=== PATIENT | male | born 1970 | race Caucasian/White ===

== ENCOUNTER 2016-11-05 20:34 | Emergency (ER) | payer BC, MEDICAID, OTHER ==
--- NOTE | 2016-11-06 00:53 | EDM.PDOC ---
ED HPI Behavioral Health - General Chief Complaint: Behavioral/Psych Stated Complaint: EVAL Time Seen by Provider: 11/05/16 21:50 Source: Reports: Patient Exam Limitations: Reports: No limitations - History of Present Illness INITIAL COMMENTS - FREE TEXT/NARRATIVE: Pt was brought in because of some questionable suicidal remarks. He was in treatment for 40 some days. He got out Monday and has been drinking ever since. Tonight after drinking a fair amount he started talking about not wanting to live. Onset of Symptoms: Reports: gradual Duration of Symptoms: Reports: Week(s):, Other (Pt has been drinking heavy for about 5 years, ) Severity: moderate Associated Symptoms: Reports: anxiety, depression, suicidal thought - Related Data Allergies Allergy/AdvReac Type Severity Reaction Status Date / Time Penicillins Allergy Hives Verified 01/29/16 19:21 Home Medications: Home Meds Metoprolol Tartrate [Lopressor] 25 mg PO BID 03/29/14 [History] Citalopram [Citalopram HBr] 30 mg PO DAILY 01/29/16 [History] Omeprazole [Omeprazole] 20 mg PO DAILY 11/05/16 [History] Prazosin HCl [Prazosin] 2 mg PO BEDTIME 11/05/16 [History] traZODone HCl [Trazodone HCl] 100 mg PO BEDTIME 11/05/16 [History] denies pain Pain Score (Numeric/FACES): 0 Past Medical History HEENT History: Reports: Impaired vision Cardiovascular History: Reports: Arrhythmia, Hypertension, Other (see below) Other Cardiovascular History: SVT Respiratory History: Reports: Bronchitis, recurrent Gastrointestinal History: Reports: Diverticulosis Genitourinary History: Reports: Renal calculus Musculoskeletal History: Reports: Fracture, Other (see below) Other Musculoskeletal History: dislocated shoulder Neurological History: Reports: Concussion Psychiatric History: Reports: Anxiety, Depression, Panic attack, PTSD, Other ( see below) Other Psychiatric History: Major depressive disorder Endocrine/Metabolic History: Reports: Diabetes, type II, Other (see below) Other Endocrine/Metabolic History: 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 Immunologic History: Reports: Other (see below) Other Immunologic History: anaplasmosis, lyme disease Dermatologic History: Reports: Eczema - Infectious Disease History Infectious Disease History: Reports: Chicken pox - Past Surgical History HEENT Surgical History: Reports: Tonsillectomy GI Surgical History: Reports: Bariatric procedure, Cholecystectomy Musculoskeletal Surgical History: Reports: Arthroscopic knee Social & Family History - Tobacco Use Smoking Status *Q: Never Smoker Years of Tobacco use: 15 Packs/Tins Daily: 2 Used Tobacco, but Quit: Yes Month Tobacco Last Used: x 10 years Second Hand Smoke Exposure: Yes - Caffeine Use Caffeine Use: Reports: Coffee - Alcohol Use Days Per Week of Alcohol Use: 1 Number of Drinks Per Day: 4 Total Drinks Per Week: 4 - Recreational Drug Use Recreational Drug Use: Yes Drug Use in Last 12 Months: Yes Recreational Drug Type: Reports: Marijuana/Hashish Recreational Drug Use Frequency: Not Used In Over 1 Year - Living Situation & Occupation Living situation: Reports: with significant other Occupation: 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 ) Psychiatric: Reports: Depression, Suicidal ideation ED EXAM, BEHAVIORAL HEALTH - Physical Exam Exam: See Below Text/Narrative:: pt arrived because of some suicidal comments tonight. He was in denial when he arrived. He admitted to drinking since he was out of treatment. Exam Limited By: Other (depression) General Appearance: alert, no apparent distress Ears: normal TMs Nose: normal inspection Throat/Mouth: Normal inspection Head: atraumatic Neck: normal inspection Respiratory/Chest: no respiratory distress Cardiovascular: regular rate, rhythm GI/Abdominal: soft, non tender (Male) Exam: Deferred Rectal (Males) Exam: Deferred Back Exam: normal inspection Extremities: normal inspection Neurological: alert, normal cognition, oriented x 3 Psychiatric: alert, normal cognition, suicidal thoughts COURSE, BEHAVIORAL HEALTH COMP - Course Vital Signs: Last Vital Signs Temp 35.9 C 11/06/16 02:32 Pulse 98 11/06/16 02:32 Resp 16 11/06/16 04:30 BP 110/63 11/06/16 02:32 Pulse Ox 93 L 11/06/16 02:32 Orders, Labs, Meds: Laboratory Tests 11/05/16 11/05/16 11/05/16 Range/Units 22:01 22:01 22:01 WBC 8.6 (4.5-11.0) K/uL RBC 5.08 (4.30-5.90) M/uL Hgb 15.5 H (12.0-15.0) g/dL Hct 45.1 (40.0-54.0) % MCV 89 (80-98) fL MCH 31 (27-31) pg MCHC 34 (32-36) % Plt Count 259 (150-400) K/uL Neut % (Auto) 50 (36-66) % Lymph % (Auto) 35 (24-44) % [place] % (Auto) 5 (2-6) % Eos % (Auto) 8 H (2-4) % Baso % (Auto) 2 H (0-1) % Sodium 149 H (140-148) mmol/L Potassium 3.9 (3.6-5.2) mmol/L Chloride 112 H (100-108) mmol/L Carbon Dioxide 26 (21-32) mmol/L Anion Gap 14.9 H (5.0-14.0) mmol/L BUN 13 (7-18) mg/dL Creatinine 1.0 (0.8-1.3) mg/dL Est Cr Clr Drug Dosing 85.07 mL/min Estimated GFR (MDRD) > 60 (>60) Glucose 104 (74-106) mg/dL Calcium 8.0 L (8.5-10.1) mg/dL Total Bilirubin 0.2 D (0.2-1.0) mg/dL AST 32 (15-37) U/L ALT 53 (12-78) U/L Alkaline Phosphatase 97 (46-116) U/L Total Protein 6.5 (6.4-8.2) g/dL Albumin 3.9 (3.4-5.0) g/dL Globulin 2.6 (2.3-3.5) g/dL Albumin/Globulin Ratio 1.5 (1.2-2.2) Urine Color Urine Appearance Urine pH (4.5-8.0) Ur Specific [place] (1.008-1.030) Urine Protein (NEGATIVE) mg/dL Urine Glucose (UA) (NEGATIVE) mg/dL Urine Ketones (NEGATIVE) mg/dL Urine Occult Blood (NEGATIVE) Urine Nitrite (NEGAITVE) Urine Bilirubin (NEGATIVE) Urine Urobilinogen (NORMAL) mg/dL Ur Leukocyte Esterase (NEGATIVE) Urine RBC (0-5) Urine WBC (0-5) Ur Epithelial Cells Amorphous Sediment Urine Bacteria Urine Mucus Urine Opiates Screen (NEGATIVE) Ur Oxycodone Screen (NEGATIVE) Urine Methadone Screen (NEGATIVE) Ur Propoxyphene Screen (NEGATIVE) Ur Barbiturates Screen (NEGATIVE) Ur Tricyclics Screen (NEGATIVE) Ur Phencyclidine Scrn (NEGATIVE) Ur Amphetamine Screen (NEGATIVE) U Methamphetamines Scrn (NEGATIVE) Urine MDMA Screen (NEGATIVE) U Benzodiazepines Scrn (NEGATIVE) U Cocaine Metab Screen (NEGATIVE) U Marijuana (THC) Screen (NEGATIVE) Ethyl Alcohol 220 mg/dL 11/05/16 11/05/16 Range/Units 22:50 22:50 WBC (4.5-11.0) K/uL RBC (4.30-5.90) M/uL Hgb (12.0-15.0) g/dL Hct (40.0-54.0) % MCV (80-98) fL MCH (27-31) pg MCHC (32-36) % Plt Count (150-400) K/uL Neut % (Auto) (36-66) % Lymph % (Auto) (24-44) % [place] % (Auto) (2-6) % Eos % (Auto) (2-4) % Baso % (Auto) (0-1) % Sodium (140-148) mmol/L Potassium (3.6-5.2) mmol/L Chloride (100-108) mmol/L Carbon Dioxide (21-32) mmol/L Anion Gap (5.0-14.0) mmol/L BUN (7-18) mg/dL Creatinine (0.8-1.3) mg/dL Est Cr Clr Drug Dosing mL/min Estimated GFR (MDRD) (>60) Glucose (74-106) mg/dL Calcium (8.5-10.1) mg/dL Total Bilirubin (0.2-1.0) mg/dL AST (15-37) U/L ALT (12-78) U/L Alkaline Phosphatase (46-116) U/L Total Protein (6.4-8.2) g/dL Albumin (3.4-5.0) g/dL Globulin (2.3-3.5) g/dL Albumin/Globulin Ratio (1.2-2.2) Urine Color Yellow Urine Appearance Clear Urine pH 5.0 (4.5-8.0) Ur Specific [place] 1.015 (1.008-1.030) Urine Protein Negative (NEGATIVE) mg/dL Urine Glucose (UA) Normal (NEGATIVE) mg/dL Urine Ketones Negative (NEGATIVE) mg/dL Urine Occult Blood Negative (NEGATIVE) Urine Nitrite Negative (NEGAITVE) Urine Bilirubin Negative (NEGATIVE) Urine Urobilinogen Normal (NORMAL) mg/dL Ur Leukocyte Esterase Negative (NEGATIVE) Urine RBC 0-5 (0-5) Urine WBC 0-5 (0-5) Ur Epithelial Cells Rare Amorphous Sediment Not seen Urine Bacteria Few Urine Mucus Not seen Urine Opiates Screen Negative (NEGATIVE) Ur Oxycodone Screen Negative (NEGATIVE) Urine Methadone Screen Negative (NEGATIVE) Ur Propoxyphene Screen Negative (NEGATIVE) Ur Barbiturates Screen Negative (NEGATIVE) Ur Tricyclics Screen Negative (NEGATIVE) Ur Phencyclidine Scrn Negative (NEGATIVE) Ur Amphetamine Screen Negative (NEGATIVE) U Methamphetamines Scrn Negative (NEGATIVE) Urine MDMA Screen Negative (NEGATIVE) U Benzodiazepines Scrn Negative (NEGATIVE) U Cocaine Metab Screen Negative (NEGATIVE) U Marijuana (THC) Screen Negative (NEGATIVE) Ethyl Alcohol mg/dL Medical Clearance: 11/06/16 00:55 lab work looked normal. He does have a neg drug screen and his etoh was.22 11/06/16 05:03 [facility] acepted the pt Departure - Departure Time of Disposition: 05:04 Disposition: DC/Tfer to Psych Hosp/Unit 65 Condition: fair Clinical Impression: Depression, Suicidal ideation Forms: ED Department Discharge Care Plan Goals: transfer to [facility]
[2016-11-06 04:32] VITALS: BP 110/63
== END 2016-11-06 06:07 ==
LOC: JP.ED 20:34
DX: R45.851 Suicidal ideations (principal); I10 Essential (primary) hypertension; Z90.49 Acquired absence of other specified parts of digestive tract; Z98.84 Bariatric surgery status; Z98.890 Other specified postprocedural states; Z79.899 Other long term (current) drug therapy; Z88.0 Allergy status to penicillin
CPT/HCPCS: 36415; 80053; 80305; 81001; 85025; 99285; G0480

== ENCOUNTER 2017-01-21 12:48 | Emergency (ER) | payer BC, MEDICAID, OTHER, SELFPAY ==
[2017-01-21 12:59] VITALS: BP 116/65
--- NOTE | 2017-01-21 14:16 | EDM.PDOC ---
ED HPI GENERAL MEDICAL PROBLEM - General Chief Complaint: Behavioral/Psych Stated Complaint: EVAL Time Seen by Provider: 01/21/17 13:10 Source of Information: Reports: Patient, Family, Police History Limitations: Reports: Intoxication - History of Present Illness INITIAL COMMENTS - FREE TEXT/NARRATIVE: 46-year-old male with depression, PTSD and chronic alcohol abuse presents acutely intoxicated and threatening self-harm. Now that he is here he completely denies any suicidal or self-harm intent. He has no specific plans, just social media threats. He is planning on entering into an extended treatment plan for chemical dependency and psychiatric issues next week. Severity: Moderate Associated Symptoms: Reports: No Other Symptoms Left Shoulder Pain Score (Numeric/FACES): 3 - Related Data Allergies Allergy/AdvReac Type Severity Reaction Status Date / Time erythromycin base Allergy Nausea Verified 01/21/17 12:59 Penicillins Allergy Hives Verified 01/21/17 12:59 Home Meds: Home Meds Metoprolol Tartrate [Lopressor] 25 mg PO BID 03/29/14 [History] Citalopram [Citalopram HBr] 30 mg PO DAILY 01/29/16 [History] Omeprazole [Omeprazole] 20 mg PO DAILY 11/05/16 [History] Prazosin HCl [Prazosin] 3 mg PO BEDTIME 11/05/16 [History] traZODone HCl [Trazodone HCl] 100 mg PO BEDTIME 11/05/16 [History] Diazepam [Valium] 2.5 mg PO BID PRN 01/21/17 [History] Gabapentin [Neurontin] 600 mg PO TID 01/21/17 [History] Sertraline [Zoloft] 1 tab PO DAILY 01/21/17 [History] Past Medical History HEENT History: Reports: Impaired Vision Cardiovascular History: Reports: Arrhythmia, Hypertension, Other (See Below) Other Cardiovascular History: svt Respiratory History: Reports: Bronchitis, Recurrent Gastrointestinal History: Reports: Diverticulosis Genitourinary History: Reports: Renal Calculus Musculoskeletal History: Reports: Fracture Other Musculoskeletal History: dislocated shoulder Neurological History: Reports: Concussion Psychiatric History: Reports: Anxiety, Depression, Panic Attack, Psych Hospitalization(s), PTSD Other Psychiatric History: Major depressive disorder Endocrine/Metabolic History: Reports: Diabetes, Type II, Other (See Below) Other Endocrine/Metabolic History: type II diabetes history Immunologic History: Reports: Other (See Below) Other Immunologic History: anaplasmosis, lyme disease Dermatologic History: Reports: Eczema - Infectious Disease History Infectious Disease History: Reports: Chicken Pox - Past Surgical History GI Surgical History: Reports: Bariatric Procedure, Cholecystectomy Musculoskeletal Surgical History: Reports: Arthroscopic Knee Social & Family History - Tobacco Use Smoking Status *Q: Former Smoker Years of Tobacco use: 15 Packs/Tins Daily: 2 Used Tobacco, but Quit: Yes Month Tobacco Last Used: 0 Second Hand Smoke Exposure: Yes - Caffeine Use Caffeine Use: Reports: Coffee - Alcohol Use Days Per Week of Alcohol Use: 1 Number of Drinks Per Day: 4 Total Drinks Per Week: 4 - Recreational Drug Use Recreational Drug Use: No Drug Use in Last 12 Months: Yes Recreational Drug Type: Reports: Marijuana/Hashish Recreational Drug Use Frequency: Not Used In Over 1 Year - Living Situation & Occupation Living situation: Reports: with Significant Other Occupation: Employed ED ROS GENERAL - Review of Systems Review Of Systems: See Below Constitutional: Denies: Fever Respiratory: Denies: Shortness of Breath Cardiovascular: Denies: Chest Pain GI/Abdominal: Denies: Nausea, Vomiting Neurological: Denies: Headache Psychiatric: Reports: Depression ED EXAM, BEHAVIORAL HEALTH - Physical Exam Exam: See Below Exam Limited By: Intoxication General Appearance: Alert, No Apparent Distress Eye Exam: Bilateral Eye: EOMI Respiratory/Chest: No Respiratory Distress Cardiovascular: Regular Rate, Rhythm Neurological: Alert Psychiatric: Depressed Mood. No: Tearful Skin Exam: Warm, Dry COURSE, BEHAVIORAL HEALTH COMP - Course Vital Signs: Last Vital Signs Temp 99.1 F 01/21/17 12:56 Pulse 70 01/21/17 12:56 Resp 16 01/21/17 12:56 BP 116/65 01/21/17 12:56 Pulse Ox 91 L 01/21/17 12:56 Orders, Labs, Meds: Laboratory Tests 01/21/17 01/21/17 01/21/17 Range/Units 13:32 13:35 13:35 WBC 9.9 (4.5-11.0) K/uL RBC 5.32 (4.30-5.90) M/uL Hgb 16.0 H (12.0-15.0) g/dL Hct 46.0 (40.0-54.0) % MCV 87 (80-98) fL MCH 30 (27-31) pg MCHC 35 (32-36) % Plt Count 330 (150-400) K/uL Neut % (Auto) 67 H (36-66) % Lymph % (Auto) 24 (24-44) % [place] % (Auto) 4 (2-6) % Eos % (Auto) 4 (2-4) % Baso % (Auto) 1 (0-1) % Sodium 144 (140-148) mmol/L Potassium 4.0 (3.6-5.2) mmol/L Chloride 108 (100-108) mmol/L Carbon Dioxide 22 (21-32) mmol/L Anion Gap 14.0 (5.0-14.0) mmol/L BUN 10 (7-18) mg/dL Creatinine 0.9 (0.8-1.3) mg/dL Est Cr Clr Drug Dosing 94.52 mL/min Estimated GFR (MDRD) > 60 (>60) Glucose 94 (74-106) mg/dL Calcium 8.2 L (8.5-10.1) mg/dL Urine Opiates Screen Negative (NEGATIVE) Ur Oxycodone Screen Negative (NEGATIVE) Urine Methadone Screen Negative (NEGATIVE) Ur Propoxyphene Screen Negative (NEGATIVE) Ur Barbiturates Screen Negative (NEGATIVE) Ur Tricyclics Screen Negative (NEGATIVE) Ur Phencyclidine Scrn Negative (NEGATIVE) Ur Amphetamine Screen Negative (NEGATIVE) U Methamphetamines Scrn Negative (NEGATIVE) Urine MDMA Screen Negative (NEGATIVE) U Benzodiazepines Scrn Positive H (NEGATIVE) U Cocaine Metab Screen Negative (NEGATIVE) U Marijuana (THC) Screen Negative (NEGATIVE) Ethyl Alcohol mg/dL 01/21/17 Range/Units 13:35 WBC (4.5-11.0) K/uL RBC (4.30-5.90) M/uL Hgb (12.0-15.0) g/dL Hct (40.0-54.0) % MCV (80-98) fL MCH (27-31) pg MCHC (32-36) % Plt Count (150-400) K/uL Neut % (Auto) (36-66) % Lymph % (Auto) (24-44) % [place] % (Auto) (2-6) % Eos % (Auto) (2-4) % Baso % (Auto) (0-1) % Sodium (140-148) mmol/L Potassium (3.6-5.2) mmol/L Chloride (100-108) mmol/L Carbon Dioxide (21-32) mmol/L Anion Gap (5.0-14.0) mmol/L BUN (7-18) mg/dL Creatinine (0.8-1.3) mg/dL Est Cr Clr Drug Dosing mL/min Estimated GFR (MDRD) (>60) Glucose (74-106) mg/dL Calcium (8.5-10.1) mg/dL Urine Opiates Screen (NEGATIVE) Ur Oxycodone Screen (NEGATIVE) Urine Methadone Screen (NEGATIVE) Ur Propoxyphene Screen (NEGATIVE) Ur Barbiturates Screen (NEGATIVE) Ur Tricyclics Screen (NEGATIVE) Ur Phencyclidine Scrn (NEGATIVE) Ur Amphetamine Screen (NEGATIVE) U Methamphetamines Scrn (NEGATIVE) Urine MDMA Screen (NEGATIVE) U Benzodiazepines Scrn (NEGATIVE) U Cocaine Metab Screen (NEGATIVE) U Marijuana (THC) Screen (NEGATIVE) Ethyl Alcohol 234 mg/dL Re-Assessment/Re-Exam: EtOH is 0.234, urine drug screen is otherwise negative other than benzodiazepines for which he is prescribed. Instead of a 72 hour hold the patient agreed to go to [facility] for detox, then will await placement for his long-term treatment. He can return anytime if worsening or concerns. Departure - Departure Time of Disposition: 14:31 Disposition: DC/Tfer to Other 70 Condition: fair Clinical Impression: Alcohol abuse Depression Qualifiers: Depression Type: other depression Qualified Code(s): F32.89 - Other specified depressive episodes - Discharge Information Instructions: Alcohol Intoxication, [id number] Referrals: Baljeet Lucio MD [Primary Care Provider] - Forms: ED Department Discharge Care Plan Goals: Go directly to [facility] for detox over the next several days then to long- term treatment as planned.
== END 2017-01-21 14:32 | disposition other institution (70) ==
LOC: JP.ED 12:48
DX: F10.10 Alcohol abuse, uncomplicated (principal); F32.89 Other specified depressive episodes; I10 Essential (primary) hypertension; F41.0 Panic disorder [episodic paroxysmal anxiety]; E11.9 Type 2 diabetes mellitus without complications; Z79.899 Other long term (current) drug therapy; Z98.84 Bariatric surgery status; Z90.49 Acquired absence of other specified parts of digestive tract; Z98.890 Other specified postprocedural states; Z87.891 Personal history of nicotine dependence; Z88.0 Allergy status to penicillin; Z88.1 Allergy status to other antibiotic agents
CPT/HCPCS: 36415; 80048; 80305; 85025; 99285; G0480; 99283

== ENCOUNTER 2020-01-07 19:08 | Observation (INO) | payer BC, OTHER ==
[2020-01-07] MEDS ORDERED: Sodium Chloride 0.9% 10 ML Syringe FLUSH PRN (19:47)
[2020-01-07] MEDS ORDERED: MVI, Adult with Vitamin K 10 ML, Thiamine 200 MG, Folic Acid 1 MG, Magnesium Sulfate 2 ... IV ONE ×5 (19:48)
[2020-01-07] MEDS ORDERED: LORazepam 2 MG/ML SDV IVPUSH ONE (19:48)
--- NOTE | 2020-01-07 19:54 | EDM.PDOCBH ---
ED HPI GENERAL MEDICAL PROBLEM - General Chief Complaint: Drug or Alcohol Abuse Stated Complaint: EVAL Time Seen by Provider: 01/07/20 19:42 Source of Information: Reports: Patient, Family, RN Notes Reviewed History Limitations: Reports: Intoxication - History of Present Illness INITIAL COMMENTS - FREE TEXT/NARRATIVE: 49-year-old gentleman presents emergency department a complaint of nausea and vomiting, he has been excessively using alcohol last drink was 2 hours ago he is on a variety medications including Effexor SNRI which he admits not taking any of his medications for the last 6 days. He is diaphoretic complains of muscle pain. abd Pain Score (Numeric/FACES): 5 - Related Data Allergies Allergy/AdvReac Type Severity Reaction Status Date / Time erythromycin base Allergy Nausea Verified 01/07/20 19:31 Penicillins Allergy Hives Verified 01/07/20 19:31 Home Meds: Home Meds Metoprolol Tartrate [Lopressor] 25 mg PO BID 03/29/14 [History] Omeprazole 20 mg PO DAILY 11/05/16 [History] Prazosin HCl [Prazosin] 5 mg PO BEDTIME 11/05/16 [History] traZODone HCl [Trazodone HCl] 50 mg PO BEDTIME 11/05/16 [History] Dextroamphetamine/Amphetamine [Adderall 20 mg Tablet] 1 tab PO DAILY 01/07/20 [ History] Tamsulosin HCl [Flomax] 0.4 mg PO DAILY 01/07/20 [History] Venlafaxine [Effexor] 0 mg PO DAILY 01/07/20 [History] Past Medical History HEENT History: Reports: Impaired Vision Cardiovascular History: Reports: Arrhythmia, CAD, Hypertension, MS, Other (See Below) Other Cardiovascular History: svt Respiratory History: Reports: Bronchitis, Recurrent Gastrointestinal History: Reports: Diverticulosis Genitourinary History: Reports: Prostate Disorder, Renal Calculus Musculoskeletal History: Reports: Fracture Other Musculoskeletal History: dislocated shoulder Neurological History: Reports: Concussion Psychiatric History: Reports: Addiction, Anxiety, Depression, Panic Attack, Psych Hospitalization(s), PTSD, Suicide Attempt Other Psychiatric History: Major depressive disorder Endocrine/Metabolic History: Reports: Diabetes, Type II, Other (See Below) Other Endocrine/Metabolic History: type II diabetes history Immunologic History: Reports: Other (See Below) Other Immunologic History: anaplasmosis, lyme disease Dermatologic History: Reports: Eczema - Infectious Disease History Infectious Disease History: Reports: Chicken Pox - Past Surgical History GI Surgical History: Reports: Bariatric Procedure, Cholecystectomy, Colonoscopy Musculoskeletal Surgical History: Reports: Arthroscopic Knee Social & Family History - Tobacco Use Smoking Status *Q: Current Every Day Smoker Years of Tobacco use: 30 Packs/Tins Daily: 0.2 - Caffeine Use Caffeine Use: Reports: Coffee - Alcohol Use Days Per Week of Alcohol Use: 7 Number of Drinks Per Day: 20 Total Drinks Per Week: 140 - Recreational Drug Use Recreational Drug Use: No - Living Situation & Occupation Living situation: Reports: with Significant Other Occupation: Employed ED ROS GENERAL - Review of Systems Review Of Systems: See Below Constitutional: Reports: Diaphoresis HEENT: Reports: No Symptoms Respiratory: Reports: No Symptoms Cardiovascular: Reports: No Symptoms GI/Abdominal: Reports: Nausea, Vomiting Musculoskeletal: Reports: Muscle Pain Neurological: Reports: No Symptoms Psychiatric: Reports: Agitation, Anxiety ED EXAM, BEHAVIORAL HEALTH - Physical Exam Exam: See Below Exam Limited By: Intoxication General Appearance: Alert, Moderate Distress Respiratory/Chest: No Respiratory Distress, Lungs Clear, Normal Breath Sounds, No Accessory Muscle Use, Chest Non-Tender Cardiovascular: No Murmur, Tachycardia GI/Abdominal: Soft, Non-Tender Back Exam: Normal Inspection, Full Range of Motion COURSE, BEHAVIORAL HEALTH COMP - Course Vital Signs: Last Vital Signs Temp 96.7 F L 01/07/20 20:27 Pulse 108 H 01/07/20 20:50 Resp 23 H 01/07/20 20:27 BP 128/84 01/07/20 20:50 Pulse Ox 98 01/07/20 20:50 Orders, Labs, Meds: Active Orders 24 hr Category Date Time Status Cardiac Monitoring [RC] .As Directed Care 01/07/20 19:53 Active EKG Documentation Completion [RC] ASDIRECTED Care 01/07/20 19:53 Active Peripheral IV Care [RC] . DIRECTED Care 01/07/20 19:48 Active UA W/MICROSCOPIC [URIN] Urgent Lab 01/07/20 21:23 Ordered MVI, Adult with Vitamin K [Infuvite Adult] 10 ml Med 01/07/20 19:48 Active Thiamine [Vitamin B-1] 200 mg Folic Acid 1 mg Magnesium Sulfate [Magnesium Sulfate 50%] 2 gm Dextrose 5%-Lactated Ringers 1,000 ml IV ONETIME Sodium Chloride 0.9% [Saline Flush] Med 01/07/20 19:47 Active 10 ml FLUSH ASDIRECTED PRN Peripheral IV Insertion Adult [OM.PC] Urgent Oth 01/07/20 19:47 Ordered EKG 12 Lead [EK] Stat Ther 01/07/20 19:53 Ordered Medication Orders Multivitamins/Minerals 10 ml/Thiamine HCl 200 mg/ Folic Acid 1 mg/ Magnesium Sulfate 2 gm/ Dextrose/Lactated Ringer' s 1,016.2 mls @ 500 mls/hr IV ONETIME ONE Stop: 01/07/20 21:49 Last Admin: 01/07/20 20:28 Dose: 500 mls/hr Sodium Chloride (Saline Flush) 10 ml FLUSH ASDIRECTED PRN PRN Reason: Keep Vein Open Last Admin: 01/07/20 20:02 Dose: 10 ml Laboratory Tests 01/07/20 01/07/20 01/07/20 Range/Units 20:00 20:00 20:00 WBC 14.1 H (4.5-11.0) K/uL RBC 6.69 H (4.30-5.90) M/uL Hgb 19.1 H* D (12.0-15.0) g/dL Hct 54.9 H (40.0-54.0) % MCV 82 (80-98) fL MCH 29 (27-31) pg MCHC 35 (32-36) % Plt Count 406 H (150-400) K/uL Neut % (Auto) 65 (36-66) % Lymph % (Auto) 26 (24-44) % [place] % (Auto) 7 H (2-6) % Eos % (Auto) 1 L (2-4) % Baso % (Auto) 1 (0-1) % Sodium 134 L (140-148) mmol/L Potassium 4.2 (3.6-5.2) mmol/L Chloride 91 L (100-108) mmol/L Carbon Dioxide 19 L (21-32) mmol/L Anion Gap 28.2 H (5.0-14.0) mmol/L BUN 9 (7-18) mg/dL Creatinine 1.2 (0.8-1.3) mg/dL Est Cr Clr Drug Dosing 68.67 mL/min Estimated GFR (MDRD) > 60 (>60) Glucose 138 H (74-106) mg/dL Calcium 8.7 (8.5-10.1) mg/dL Total Bilirubin 2.3 H D (0.2-1.0) mg/dL AST 200 H D (15-37) U/L ALT 182 H (12-78) U/L Alkaline Phosphatase 177 H D (46-116) U/L Creatine Kinase (39-308) U/L Troponin I (0.000-0.056) ng/mL Total Protein 8.0 (6.4-8.2) g/dL Albumin 4.6 (3.4-5.0) g/dL Globulin 3.4 (2.3-3.5) g/dL Albumin/Globulin Ratio 1.4 (1.2-2.2) Salicylates 2.7 (2.0-20.0) mg/dL Urine Opiates Screen (NEGATIVE) Ur Oxycodone Screen (NEGATIVE) Urine Methadone Screen (NEGATIVE) Ur Propoxyphene Screen (NEGATIVE) Acetaminophen 0.0 L (10.0-30.0) ug/mL Ur Barbiturates Screen (NEGATIVE) Ur Tricyclics Screen (NEGATIVE) Ur Phencyclidine Scrn (NEGATIVE) Ur Amphetamine Screen (NEGATIVE) U Methamphetamines Scrn (NEGATIVE) Urine MDMA Screen (NEGATIVE) U Benzodiazepines Scrn (NEGATIVE) U Cocaine Metab Screen (NEGATIVE) U Marijuana (THC) Screen (NEGATIVE) Ethyl Alcohol mg/dL 01/07/20 01/07/20 01/07/20 Range/Units 20:00 20:00 21:02 WBC (4.5-11.0) K/uL RBC (4.30-5.90) M/uL Hgb (12.0-15.0) g/dL Hct (40.0-54.0) % MCV (80-98) fL MCH (27-31) pg MCHC (32-36) % Plt Count (150-400) K/uL Neut % (Auto) (36-66) % Lymph % (Auto) (24-44) % [place] % (Auto) (2-6) % Eos % (Auto) (2-4) % Baso % (Auto) (0-1) % Sodium (140-148) mmol/L Potassium (3.6-5.2) mmol/L Chloride (100-108) mmol/L Carbon Dioxide (21-32) mmol/L Anion Gap (5.0-14.0) mmol/L BUN (7-18) mg/dL Creatinine (0.8-1.3) mg/dL Est Cr Clr Drug Dosing mL/min Estimated GFR (MDRD) (>60) Glucose (74-106) mg/dL Calcium (8.5-10.1) mg/dL Total Bilirubin (0.2-1.0) mg/dL AST (15-37) U/L ALT (12-78) U/L Alkaline Phosphatase (46-116) U/L Creatine Kinase 358 H (39-308) U/L Troponin I < 0.017 (0.000-0.056) ng/mL Total Protein (6.4-8.2) g/dL Albumin (3.4-5.0) g/dL Globulin (2.3-3.5) g/dL Albumin/Globulin Ratio (1.2-2.2) Salicylates (2.0-20.0) mg/dL Urine Opiates Screen Negative (NEGATIVE) Ur Oxycodone Screen Negative (NEGATIVE) Urine Methadone Screen Negative (NEGATIVE) Ur Propoxyphene Screen Negative (NEGATIVE) Acetaminophen (10.0-30.0) ug/mL Ur Barbiturates Screen Negative (NEGATIVE) Ur Tricyclics Screen Negative (NEGATIVE) Ur Phencyclidine Scrn Negative (NEGATIVE) Ur Amphetamine Screen Negative (NEGATIVE) U Methamphetamines Scrn Negative (NEGATIVE) Urine MDMA Screen Negative (NEGATIVE) U Benzodiazepines Scrn Negative (NEGATIVE) U Cocaine Metab Screen Negative (NEGATIVE) U Marijuana (THC) Screen Negative (NEGATIVE) Ethyl Alcohol 340 mg/dL Medications Generic Name Dose Route Start Last Admin Trade Name Freq PRN Reason Stop Dose Admin Multivitamins/Minerals 10 ml/ 1,016.2 mls @ 500 mls/hr 01/07/20 19:48 20:28 Thiamine HCl 200 mg/ Folic IV 01/07/20 21:49 500 mls/hr Acid 1 mg/ Magnesium Sulfate 2 ONETIME ONE Administration gm/ Dextrose/Lactated Ringer' s Sodium Chloride 10 ml 01/07/20 19:47 01/07/20 20:02 Saline Flush FLUSH 10 ml ASDIRECTED PRN Administration Keep Vein Open Discontinued Medications Generic Name Dose Route Start Last Admin Trade Name Freq PRN Reason Stop Dose Admin Lorazepam 1 mg 01/07/20 19:48 01/07/20 20:01 Ativan IVPUSH 01/07/20 19:49 1 mg ONETIME ONE Administration Departure - Departure Time of Disposition: 21:29 Disposition: Admitted As Inpatient 68 Condition: Fair Clinical Impression: Dehydration Alcohol intoxication Qualifiers: Complication of substance-induced condition: with unspecified complication Qualified Code(s): F10.929 - Alcohol use, unspecified with intoxication, unspecified - Discharge Information Referrals: PCP,None [Primary Care Provider] - Forms: ED Department Discharge Sepsis Event Note - Focused Exam Vital Signs: Vital Signs Temp Pulse Resp BP Pulse Ox 01/07/20 20:50 108 H 128/84 98 01/07/20 20:27 96.7 F L 125 H 23 H 123/93 H 98 01/07/20 20:14 125 H 23 H 123/93 H 98 01/07/20 19:25 96.7 F L 140 H 20 129/111 H 97 Date Exam was Performed: 01/07/20 Time Exam was Performed: 21:27 - My Orders Last 24 Hours: My Active Orders 01/07/20 19:47 Sodium Chloride 0.9% [Saline Flush] 10 ml FLUSH ASDIRECTED PRN Peripheral IV Insertion Adult [OM.PC] Urgent 01/07/20 19:48 Peripheral IV Care [RC] . DIRECTED MVI, Adult with Vitamin K [Infuvite Adult] 10 ml Thiamine [Vitamin B-1] 200 mg Folic Acid 1 mg Magnesium Sulfate [Magnesium Sulfate 50%] 2 gm Dextrose 5%- Lactated Ringers 1,000 ml IV ONETIME 01/07/20 19:53 Cardiac Monitoring [RC] .As Directed EKG Documentation Completion [RC] ASDIRECTED EKG 12 Lead [EK] Stat 01/07/20 21:23 UA W/MICROSCOPIC [URIN] Urgent - Assessment/Plan Last 24 Hours: My Active Orders 01/07/20 19:47 Sodium Chloride 0.9% [Saline Flush] 10 ml FLUSH ASDIRECTED PRN Peripheral IV Insertion Adult [OM.PC] Urgent 01/07/20 19:48 Peripheral IV Care [RC] . DIRECTED MVI, Adult with Vitamin K [Infuvite Adult] 10 ml Thiamine [Vitamin B-1] 200 mg Folic Acid 1 mg Magnesium Sulfate [Magnesium Sulfate 50%] 2 gm Dextrose 5%- Lactated Ringers 1,000 ml IV ONETIME 01/07/20 19:53 Cardiac Monitoring [RC] .As Directed EKG Documentation Completion [RC] ASDIRECTED EKG 12 Lead [EK] Stat 01/07/20 21:23 UA W/MICROSCOPIC [URIN] Urgent Plan: Assessment Acuity = acute Site and laterality = alcohol intoxication concern for serotonin withdrawal syndrome intravascular volume depletion Etiology = EtOH Manifestations = nausea and vomiting Location of injury = Home Lab values = WBC elevated 14.1 consistent leukocytosis, hemoglobin elevated 19.1 consistent with polycythemia sodium low at 134 consistent hyponatremia bilirubin elevated 2.3 consistent hyperbilirubinemia AST elevated 200 ALT elevated 182 consistent elevated liver enzymes CK elevated 358 troponin was negative alcohol is 340 urine drug screen was negative urinalysis pending Plan Call discussed case with hospitalist on-call at [phone] currently agreed to evaluate the patient in the emergency department for admission This note was dictated using [employer] voice recognition software please call with any questions on syntax or grammar.
[2020-01-07] MEDS ORDERED: Ondansetron 4 MG/2 ML SDV IVPUSH ONE (21:40)
--- NOTE | 2020-01-07 22:31 | PCM.HP.2 ---
H&P History of Present Illness - General Date of Service: 01/07/20 Admit Problem/Dx: Admission Diagnosis/Problem Admission Diagnosis/Problem Dehydration Source of Information: Patient, Provider, RN History Limitations: Reports: Intoxication - History of Present Illness Initial Comments - Free Text/Narative: 49-year-old gentleman presents emergency department a complaint of nausea and vomiting, he has been excessively using alcohol last drink was 2 hours ago he is on a variety medications including Effexor SNRI which he admits not taking any of his medications for the last 6 days. He is diaphoretic complains of muscle pain. abd Assessment Acuity = acute Site and laterality = alcohol intoxication concern for serotonin withdrawal syndrome intravascular volume depletion Etiology = EtOH Manifestations = nausea and vomiting Location of injury = Home Lab values = WBC elevated 14.1 consistent leukocytosis, hemoglobin elevated 19.1 consistent with polycythemia sodium low at 134 consistent hyponatremia bilirubin elevated 2.3 consistent hyperbilirubinemia AST elevated 200 ALT elevated 182 consistent elevated liver enzymes CK elevated 358 troponin was negative alcohol is 340 urine drug screen was negative urinalysis pending Plan Call discussed case with hospitalist on-call at [phone] currently agreed to evaluate the patient in the emergency department for admission Onset of Symptoms: Reports: Gradual Duration of Symptoms: Reports: Day(s):, Getting Worse Location: Reports: Generalized (nausea and vomiting) Quality: Reports: Same as Previous Episode Severity: Severe Improves with: Reports: None Worsens with: Reports: None Associated Symptoms: Reports: Malaise, Nausea/Vomiting, Weakness abd Pain Score (Numeric/FACES): 5 - Related Data Allergies/Adverse Reactions: Allergies Allergy/AdvReac Type Severity Reaction Status Date / Time erythromycin base Allergy Nausea Verified 01/07/20 19:31 Penicillins Allergy Hives Verified 01/07/20 19:31 Home Medications: Home Meds Metoprolol Tartrate [Lopressor] 25 mg PO DAILY 03/29/14 [History] Omeprazole 20 mg PO DAILY 11/05/16 [History] Prazosin HCl [Prazosin] 5 mg PO BEDTIME 11/05/16 [History] traZODone HCl [Trazodone HCl] 50 mg PO BEDTIME 11/05/16 [History] Aspirin [Low Dose Aspirin EC] 81 mg PO DAILY 01/07/20 [History] Dextroamphetamine/Amphetamine [Adderall 20 mg Tablet] 1 tab PO DAILY 01/07/20 [ History] Disulfiram 250 mg PO BID 01/07/20 [History] FLUoxetine HCl [Prozac] 40 mg PO DAILY 01/07/20 [History] Naltrexone 50 mg PO DAILY 01/07/20 [History] QUEtiapine [SEROquel] 25 mg PO BEDTIME 01/07/20 [History] Tamsulosin HCl [Flomax] 0.4 mg PO DAILY 01/07/20 [History] Past Medical History HEENT History: Reports: Impaired Vision Cardiovascular History: Reports: Arrhythmia, CAD, Hypertension, ME, Other (See Below) Other Cardiovascular History: svt Respiratory History: Reports: Bronchitis, Recurrent Gastrointestinal History: Reports: Diverticulosis Genitourinary History: Reports: Prostate Disorder, Renal Calculus Musculoskeletal History: Reports: Fracture Other Musculoskeletal History: dislocated shoulder Neurological History: Reports: Concussion Psychiatric History: Reports: Addiction, Anxiety, Depression, Panic Attack, Psych Hospitalization(s), PTSD, Suicide Attempt Other Psychiatric History: Major depressive disorder Endocrine/Metabolic History: Reports: Diabetes, Type II, Other (See Below) Other Endocrine/Metabolic History: type II diabetes history Immunologic History: Reports: Other (See Below) Other Immunologic History: anaplasmosis, lyme disease Dermatologic History: Reports: Eczema - Infectious Disease History Infectious Disease History: Reports: Chicken Pox - Past Surgical History GI Surgical History: Reports: Bariatric Procedure, Cholecystectomy, Colonoscopy Musculoskeletal Surgical History: Reports: Arthroscopic Knee Social & Family History - Tobacco Use Smoking Status *Q: Current Every Day Smoker Years of Tobacco use: 30 Packs/Tins Daily: 0.2 - Caffeine Use Caffeine Use: Reports: Coffee - Alcohol Use Days Per Week of Alcohol Use: 7 Number of Drinks Per Day: 20 Total Drinks Per Week: 140 - Recreational Drug Use Recreational Drug Use: No - Living Situation & Occupation Living situation: Reports: with Significant Other (reports is getting divorce from in [place], living with his son.) Occupation: Employed H&P Review of Systems - Review of Systems: Review Of Systems: See Below General: Reports: Weakness, Fatigue, Decreased Appetite HEENT: Reports: Glasses Pulmonary: Reports: No Symptoms Cardiovascular: Reports: No Symptoms Gastrointestinal: Reports: Abdominal Pain, Nausea, Vomiting Genitourinary: Reports: No Symptoms Musculoskeletal: Reports: No Symptoms Skin: Reports: No Symptoms Psychiatric: Reports: Anxiety, Other (hx of complex PTSD, reports drinking 175 liter of vodka daily for 6 days) Neurological: Reports: No Symptoms Hematologic/Lymphatic: Reports: No Symptoms Immunologic: Reports: No Symptoms Exam - Exam Exam: See Below - Vital Signs Vital Signs: Last Vital Signs Temp 35.9 C L 01/07/20 20:27 Pulse 108 H 01/07/20 20:50 Resp 23 H 01/07/20 20:27 BP 128/84 01/07/20 20:50 Pulse Ox 98 01/07/20 20:50 Weight: 93.6 kg - Exam General: Alert, Oriented, Cooperative, Other (very polite) HEENT: PERRLA Neck: Supple, Trachea Midline Lungs: Clear to Auscultation, Normal Respiratory Effort Cardiovascular: Regular Rhythm, Tachycardia GI/Abdominal Exam: Normal Bowel Sounds, Soft, Non-Tender, No Distention (Male) Exam: Deferred Rectal (Males) Exam: Deferred Back Exam: Normal Inspection, Full Range of Motion Extremities: Normal Inspection, Normal Range of Motion, Non-Tender, No Pedal Edema, Normal Capillary Refill Peripheral Pulses: 2+: Radial (L), Radial (R) Skin: Warm, Dry, Intact Neurological: Reflexes Equal Bilateral, Strength Equal Bilateral Neuro Extensive - Mental Status: Alert, Oriented x3, Normal Mood/Affect, Normal Cognition Neuro Extensive - Motor, Sensory, Reflexes: Normal Gait, Normal Reflexes, Tremor (no tremor noted on exam) Psychiatric: Alert, Anxious - Patient Data Lab Results Last 24 hrs: Laboratory Results - last 24 hr 01/07/20 01/07/20 01/07/20 Range/Units 20:00 20:00 20:00 WBC 14.1 H (4.5-11.0) K/uL RBC 6.69 H (4.30-5.90) M/uL Hgb 19.1 H* D (12.0-15.0) g/dL Hct 54.9 H (40.0-54.0) % MCV 82 (80-98) fL MCH 29 (27-31) pg MCHC 35 (32-36) % Plt Count 406 H (150-400) K/uL Neut % (Auto) 65 (36-66) % Lymph % (Auto) 26 (24-44) % Leslie % (Auto) 7 H (2-6) % Eos % (Auto) 1 L (2-4) % Baso % (Auto) 1 (0-1) % Sodium 134 L (140-148) mmol/L Potassium 4.2 (3.6-5.2) mmol/L Chloride 91 L (100-108) mmol/L Carbon Dioxide 19 L (21-32) mmol/L Anion Gap 28.2 H (5.0-14.0) mmol/L BUN 9 (7-18) mg/dL Creatinine 1.2 (0.8-1.3) mg/dL Est Cr Clr Drug Dosing 68.67 mL/min Estimated GFR (MDRD) > 60 (>60) Glucose 138 H (74-106) mg/dL Calcium 8.7 (8.5-10.1) mg/dL Total Bilirubin 2.3 H D (0.2-1.0) mg/dL AST 200 H D (15-37) U/L ALT 182 H (12-78) U/L Alkaline Phosphatase 177 H D (46-116) U/L Creatine Kinase (39-308) U/L Troponin I (0.000-0.056) ng/mL Total Protein 8.0 (6.4-8.2) g/dL Albumin 4.6 (3.4-5.0) g/dL Globulin 3.4 (2.3-3.5) g/dL Albumin/Globulin Ratio 1.4 (1.2-2.2) Urine Color (YELLOW) Urine Appearance (CLEAR) Urine pH (5.0-8.0) Ur Specific [place] (1.008-1.030) Urine Protein (NEGATIVE) mg/dL Urine Glucose (UA) (NEGATIVE) mg/dL Urine Ketones (NEGATIVE) mg/dL Urine Occult Blood (NEGATIVE) Urine Nitrite (NEGATIVE) Urine Bilirubin (NEGATIVE) Urine Urobilinogen (0.2-1.0) EU/dL Ur Leukocyte Esterase (NEGATIVE) Urine RBC (0-5) Urine WBC (0-5) Ur Epithelial Cells Amorphous Sediment Urine Bacteria Urine Mucus Salicylates 2.7 (2.0-20.0) mg/dL Urine Opiates Screen (NEGATIVE) Ur Oxycodone Screen (NEGATIVE) Urine Methadone Screen (NEGATIVE) Ur Propoxyphene Screen (NEGATIVE) Acetaminophen 0.0 L (10.0-30.0) ug/mL Ur Barbiturates Screen (NEGATIVE) Ur Tricyclics Screen (NEGATIVE) Ur Phencyclidine Scrn (NEGATIVE) Ur Amphetamine Screen (NEGATIVE) U Methamphetamines Scrn (NEGATIVE) Urine MDMA Screen (NEGATIVE) U Benzodiazepines Scrn (NEGATIVE) U Cocaine Metab Screen (NEGATIVE) U Marijuana (THC) Screen (NEGATIVE) Ethyl Alcohol mg/dL 01/07/20 01/07/20 01/07/20 Range/Units 20:00 20:00 21:02 WBC (4.5-11.0) K/uL RBC (4.30-5.90) M/uL Hgb (12.0-15.0) g/dL Hct (40.0-54.0) % MCV (80-98) fL MCH (27-31) pg MCHC (32-36) % Plt Count (150-400) K/uL Neut % (Auto) (36-66) % Lymph % (Auto) (24-44) % Leslie % (Auto) (2-6) % Eos % (Auto) (2-4) % Baso % (Auto) (0-1) % Sodium (140-148) mmol/L Potassium (3.6-5.2) mmol/L Chloride (100-108) mmol/L Carbon Dioxide (21-32) mmol/L Anion Gap (5.0-14.0) mmol/L BUN (7-18) mg/dL Creatinine (0.8-1.3) mg/dL Est Cr Clr Drug Dosing mL/min Estimated GFR (MDRD) (>60) Glucose (74-106) mg/dL Calcium (8.5-10.1) mg/dL Total Bilirubin (0.2-1.0) mg/dL AST (15-37) U/L ALT (12-78) U/L Alkaline Phosphatase (46-116) U/L Creatine Kinase 358 H (39-308) U/L Troponin I < 0.017 (0.000-0.056) ng/mL Total Protein (6.4-8.2) g/dL Albumin (3.4-5.0) g/dL Globulin (2.3-3.5) g/dL Albumin/Globulin Ratio (1.2-2.2) Urine Color (YELLOW) Urine Appearance (CLEAR) Urine pH (5.0-8.0) Ur Specific [place] (1.008-1.030) Urine Protein (NEGATIVE) mg/dL Urine Glucose (UA) (NEGATIVE) mg/dL Urine Ketones (NEGATIVE) mg/dL Urine Occult Blood (NEGATIVE) Urine Nitrite (NEGATIVE) Urine Bilirubin (NEGATIVE) Urine Urobilinogen (0.2-1.0) EU/dL Ur Leukocyte Esterase (NEGATIVE) Urine RBC (0-5) Urine WBC (0-5) Ur Epithelial Cells Amorphous Sediment Urine Bacteria Urine Mucus Salicylates (2.0-20.0) mg/dL Urine Opiates Screen Negative (NEGATIVE) Ur Oxycodone Screen Negative (NEGATIVE) Urine Methadone Screen Negative (NEGATIVE) Ur Propoxyphene Screen Negative (NEGATIVE) Acetaminophen (10.0-30.0) ug/mL Ur Barbiturates Screen Negative (NEGATIVE) Ur Tricyclics Screen Negative (NEGATIVE) Ur Phencyclidine Scrn Negative (NEGATIVE) Ur Amphetamine Screen Negative (NEGATIVE) U Methamphetamines Scrn Negative (NEGATIVE) Urine MDMA Screen Negative (NEGATIVE) U Benzodiazepines Scrn Negative (NEGATIVE) U Cocaine Metab Screen Negative (NEGATIVE) U Marijuana (THC) Screen Negative (NEGATIVE) Ethyl Alcohol 340 mg/dL 01/07/20 Range/Units 21:23 WBC (4.5-11.0) K/uL RBC (4.30-5.90) M/uL Hgb (12.0-15.0) g/dL Hct (40.0-54.0) % MCV (80-98) fL MCH (27-31) pg MCHC (32-36) % Plt Count (150-400) K/uL Neut % (Auto) (36-66) % Lymph % (Auto) (24-44) % Leslie % (Auto) (2-6) % Eos % (Auto) (2-4) % Baso % (Auto) (0-1) % Sodium (140-148) mmol/L Potassium (3.6-5.2) mmol/L Chloride (100-108) mmol/L Carbon Dioxide (21-32) mmol/L Anion Gap (5.0-14.0) mmol/L BUN (7-18) mg/dL Creatinine (0.8-1.3) mg/dL Est Cr Clr Drug Dosing mL/min Estimated GFR (MDRD) (>60) Glucose (74-106) mg/dL Calcium (8.5-10.1) mg/dL Total Bilirubin (0.2-1.0) mg/dL AST (15-37) U/L ALT (12-78) U/L Alkaline Phosphatase (46-116) U/L Creatine Kinase (39-308) U/L Troponin I (0.000-0.056) ng/mL Total Protein (6.4-8.2) g/dL Albumin (3.4-5.0) g/dL Globulin (2.3-3.5) g/dL Albumin/Globulin Ratio (1.2-2.2) Urine Color Yellow (YELLOW) Urine Appearance Clear (CLEAR) Urine pH 5.5 (5.0-8.0) Ur Specific [place] 1.010 (1.008-1.030) Urine Protein Negative (NEGATIVE) mg/dL Urine Glucose (UA) Negative (NEGATIVE) mg/dL Urine Ketones 40 H (NEGATIVE) mg/dL Urine Occult Blood Trace-intact H (NEGATIVE) Urine Nitrite Negative (NEGATIVE) Urine Bilirubin Negative (NEGATIVE) Urine Urobilinogen 0.2 (0.2-1.0) EU/dL Ur Leukocyte Esterase Negative (NEGATIVE) Urine RBC 0-5 (0-5) Urine WBC 0-5 (0-5) Ur Epithelial Cells Not seen Amorphous Sediment Few Urine Bacteria Not seen Urine Mucus Not seen Salicylates (2.0-20.0) mg/dL Urine Opiates Screen (NEGATIVE) Ur Oxycodone Screen (NEGATIVE) Urine Methadone Screen (NEGATIVE) Ur Propoxyphene Screen (NEGATIVE) Acetaminophen (10.0-30.0) ug/mL Ur Barbiturates Screen (NEGATIVE) Ur Tricyclics Screen (NEGATIVE) Ur Phencyclidine Scrn (NEGATIVE) Ur Amphetamine Screen (NEGATIVE) U Methamphetamines Scrn (NEGATIVE) Urine MDMA Screen (NEGATIVE) U Benzodiazepines Scrn (NEGATIVE) U Cocaine Metab Screen (NEGATIVE) U Marijuana (THC) Screen (NEGATIVE) Ethyl Alcohol mg/dL Result Diagrams: 01/08/20 04:57 01/08/20 04:57 Sepsis Event Note - Evaluation Sepsis Screening Result: No Definite Risk - Focused Exam Vital Signs: Vital Signs Temp Pulse Resp BP Pulse Ox 01/07/20 20:50 108 H 128/84 98 01/07/20 20:27 35.9 C L 125 H 23 H 123/93 H 98 01/07/20 20:14 125 H 23 H 123/93 H 98 01/07/20 19:25 35.9 C L 140 H 20 129/111 H 97 Date Exam was Performed: 01/08/20 Time Exam was Performed: 05:25 - Problem List (1) Dehydration SNOMED Code(s): 66823763 ICD Code: E86.0 - DEHYDRATION Status: Acute Priority: High Current Visit: Yes (2) Alcohol intoxication SNOMED Code(s): 10193395 ICD Code: F10.929 - ALCOHOL USE, UNSPECIFIED WITH INTOXICATION, UNSPECIFIED Status: Acute Priority: High Current Visit: Yes Qualifiers: Complication of substance-induced condition: with unspecified complication Qualified Code(s): F10.929 - Alcohol use, unspecified with intoxication, unspecified (3) Depression SNOMED Code(s): 87201081 ICD Code: F32.9 - MAJOR DEPRESSIVE DISORDER, SINGLE EPISODE, UNSPECIFIED Status: Acute Priority: Low Current Visit: Yes Qualifiers: Depression Type: other depression Qualified Code(s): F32.89 - Other specified depressive episodes (4) History of gastric bypass SNOMED Code(s): 686141566 ICD Code: Z98.84 - BARIATRIC SURGERY STATUS Status: Acute Priority: Low Current Visit: Yes Problem List Initiated/Reviewed/Updated: Yes Orders Last 24hrs: Active Orders 24 hr Category Date Time Status Patient Status Manage Transfer [TRANSFER] Routine ADT 01/07/20 21:35 Active Cardiac Monitoring [RC] .As Directed Care 01/07/20 19:53 Active EKG Documentation Completion [RC] ASDIRECTED Care 01/07/20 19:53 Active Peripheral IV Care [RC] . DIRECTED Care 01/07/20 19:48 Active Sodium Chloride 0.9% [Saline Flush] Med 01/07/20 19:47 Active 10 ml FLUSH ASDIRECTED PRN Peripheral IV Insertion Adult [OM.PC] Urgent Oth 01/07/20 19:47 Ordered Resuscitation Status Routine Resus Stat 01/07/20 21:37 Ordered EKG 12 Lead [EK] Stat Ther 01/07/20 19:53 Ordered Medication Orders Sodium Chloride (Saline Flush) 10 ml FLUSH ASDIRECTED PRN PRN Reason: Keep Vein Open Last Admin: 01/07/20 20:02 Dose: 10 ml Assessment/Plan Comment:: ASSESSMENT / PLAN: 49-year-old gentleman presents emergency department a complaint of nausea and vomiting, he has been excessively using alcohol , reports 175 liter of Vodka daily, last drink was 2 hours ago. He is on a variety medications including Effexor SNRI which he admits not taking any of his medications for the last 6 days. He is diaphoretic complains of muscle pain. He is staying with his Son in [place] due to divorce proceeding from who is also a Nurse. There home is in [place], [place]. Assessment Acuity = acute Site and laterality = alcohol intoxication concern for serotonin withdrawal syndrome intravascular volume depletion Etiology = ETOH Manifestations = nausea and vomiting ER work up Lab values = WBC elevated 14.1 consistent leukocytosis, hemoglobin elevated 19.1 consistent with polycythemia sodium low at 134 consistent hyponatremia bilirubin elevated 2.3 consistent hyperbilirubinemia AST elevated 200 ALT elevated 182 consistent elevated liver enzymes CK elevated 358 troponin was negative alcohol is 340 urine drug screen was negative urinalysis pending Plan Call discussed case with hospitalist on-call at 2114 currently agreed to evaluate the patient in the emergency department for admission Dehydration with alcohol intoxication -Admit Observation ICU Med-surg overflow for further monitoring -IV Fluids for rehydration Normal Saline 250ml/hr x one liter, then rate of 150ml/hr -anti-nausea medication -CIWAA protocol and medication per protocol -And a.m. labs: CBC, BMP, ETOH level Depression -order medications History of Gastric Bypass -history of 180 pound wt loss Maintenance issues -Orders home meds: reviewed -Nutrition: regular diet -Granger catheter: not indicated at this time -DVT: ambulate -PPI: Protonix 40 mg daily CODE STATUS: FULL Admission status: Admit to Observation -I expect this patient to stay less than 24 hours, not to exceed 96 hours for evaluation and management of this problem admission status. Disposition: Detox or home with Son. Primary care provider: Dr. Lucio Hospitalist: Dr. Hadley - Mortality Measure Prognosis:: Good
[2020-01-07] MEDS ORDERED: traZODone 50 MG Tab PO SCH (23:00)
[2020-01-07] MEDS ORDERED: QUEtiapine 25 MG Tab PO SCH (23:00)
[2020-01-07] MEDS ORDERED: Docusate Sodium 100 MG Cap PO PRN (23:06)
[2020-01-07] MEDS ORDERED: Ondansetron 4 MG/2 ML SDV IV PRN (23:06)
[2020-01-07] MEDS ORDERED: Morphine 2 MG/ML SYRINGE IVPUSH PRN (23:06)
[2020-01-07] MEDS ORDERED: Ondansetron 4 MG Tab.DIS PO PRN (23:06)
[2020-01-07] MEDS ORDERED: Albuterol 0.083% 2.5 MG/3 ML Neb Soln NEB PRN (23:06)
[2020-01-07] MEDS ORDERED: Pantoprazole 40 MG Vial IV ONE (23:06)
[2020-01-07] MEDS ORDERED: Acetaminophen 325 MG Tab PO PRN (23:06)
[2020-01-07] MEDS ORDERED: oxyCODONE 5 MG Tab PO PRN (23:06)
[2020-01-07] MEDS ORDERED: Sodium Chloride 0.9% 1,000 ML IV ONE (23:06)
[2020-01-08] MEDS: LORazepam 2 MG/ML SDV IV SCH ×4 (00:24→10:36)
[2020-01-08] MEDS: Sodium Chloride 0.9% 1,000 ML IV SCH ×2 (02:45→09:22)
[2020-01-08] MEDS: Metoprolol Tartrate 25 MG Tab PO SCH ×2 (02:46→08:11)
[2020-01-08] MEDS ORDERED: Lactated Ringers 1,000 ML IV SCH (07:30)
[2020-01-08] MEDS ORDERED: Potassium Chloride 20 MEQ Tab.ER PO ONE (09:00)
[2020-01-08] MEDS ORDERED: Gabapentin 400 MG Cap PO SCH (09:00)
[2020-01-08] MEDS ORDERED: FLUoxetine 20 MG Cap PO SCH (09:00)
--- NOTE | 2020-01-08 09:58 | PCM.DCSUM1 ---
Discharge Summary - Hospital Course Brief History: Mr. Luna 49-year-old gentleman who was admitted through the emergency department observation status for management of severe dehydration secondary to heavy alcohol use. - Discharge Data Discharge Date: 01/08/20 Discharge Disposition: DC/Tfer to Other 70 Condition: Fair - Referral to Home Health Primary Care Physician: Baljeet Lucio MD - Discharge Diagnosis/Problem(s) (1) Alcohol intoxication SNOMED Code(s): 89192564 ICD Code: F10.929 - ALCOHOL USE, UNSPECIFIED WITH INTOXICATION, UNSPECIFIED Status: Acute Priority: High Current Visit: Yes Qualifiers: Complication of substance-induced condition: with unspecified complication Qualified Code(s): F10.929 - Alcohol use, unspecified with intoxication, unspecified (2) Dehydration SNOMED Code(s): 04779057 ICD Code: E86.0 - DEHYDRATION Status: Acute Priority: High Current Visit: Yes (3) Depression SNOMED Code(s): 17127482 ICD Code: F32.9 - MAJOR DEPRESSIVE DISORDER, SINGLE EPISODE, UNSPECIFIED Status: Acute Priority: Low Current Visit: Yes Qualifiers: Depression Type: other depression Qualified Code(s): F32.89 - Other specified depressive episodes - Patient Summary/Data Hospital Course: Mr. Luna is a 49-year-old gentleman who was admitted to observation status through the emergency department for management of weakness with nausea vomiting secondary to severe dehydration from alcohol use. On evaluation in the emergency department he reported symptoms of nausea vomiting was given antiemetic therapy. Laboratory studies were consistent with severe dehydration. He was admitted to the hospital on observation status and given IV fluids for hydration through the night. By the following morning abnormalities had resolved. Alcohol level was significantly elevated at the time of admission, by the morning of discharge he was noted to be developing mild symptoms of alcohol withdrawal. He is agreeable for discharge to detox center and follow-up with alcohol treatment. - Patient Instructions Diet: Usual Diet as Tolerated Activity: As Tolerated Other/Special Instructions: Be discharged to alcohol detox facility - Discharge Plan *PRESCRIPTION DRUG MONITORING PROGRAM REVIEWED*: Not Applicable *COPY OF PRESCRIPTION DRUG MONITORING REPORT IN PATIENT LIZA: Not Applicable Home Medications: Home Meds Metoprolol Tartrate [Lopressor] 25 mg PO DAILY 03/29/14 [History] Omeprazole 20 mg PO DAILY 11/05/16 [History] Prazosin HCl [Prazosin] 5 mg PO BEDTIME 11/05/16 [History] traZODone HCl [Trazodone HCl] 50 mg PO BEDTIME 11/05/16 [History] Aspirin [Low Dose Aspirin EC] 81 mg PO DAILY 01/07/20 [History] Dextroamphetamine/Amphetamine [Adderall 20 mg Tablet] 1 tab PO DAILY 01/07/20 [ History] Disulfiram 250 mg PO BID 01/07/20 [History] FLUoxetine HCl [Prozac] 40 mg PO DAILY 01/07/20 [History] Naltrexone 50 mg PO DAILY 01/07/20 [History] QUEtiapine [SEROquel] 25 mg PO BEDTIME 01/07/20 [History] Tamsulosin HCl [Flomax] 0.4 mg PO DAILY 01/07/20 [History] - Discharge Summary/Plan Comment DC Time >30 min.: No - Patient Data Vitals - Most Recent: Last Vital Signs Temp 98.8 F 01/07/20 23:06 Pulse 92 01/08/20 08:11 Resp 22 H 01/08/20 03:06 BP 109/63 01/08/20 08:11 Pulse Ox 90 L 01/08/20 03:06 Weight - Most Recent: 206 lb I&O - Last 24 hours: Intake & Output 01/07/20 01/08/20 01/08/20 22:59 06:59 14:59 Intake Total 2407 Output Total 425 Balance 1982 Lab Results - Last 24 hrs: Laboratory Results - last 24 hr 01/07/20 01/07/20 01/07/20 Range/Units 20:00 20:00 20:00 WBC 14.1 H (4.5-11.0) K/uL RBC 6.69 H (4.30-5.90) M/uL Hgb 19.1 H* D (12.0-15.0) g/dL Hct 54.9 H (40.0-54.0) % MCV 82 (80-98) fL MCH 29 (27-31) pg MCHC 35 (32-36) % Plt Count 406 H (150-400) K/uL Neut % (Auto) 65 (36-66) % Lymph % (Auto) 26 (24-44) % Daniels % (Auto) 7 H (2-6) % Eos % (Auto) 1 L (2-4) % Baso % (Auto) 1 (0-1) % Sodium 134 L (140-148) mmol/L Potassium 4.2 (3.6-5.2) mmol/L Chloride 91 L (100-108) mmol/L Carbon Dioxide 19 L (21-32) mmol/L Anion Gap 28.2 H (5.0-14.0) mmol/L BUN 9 (7-18) mg/dL Creatinine 1.2 (0.8-1.3) mg/dL Est Cr Clr Drug Dosing 68.67 mL/min Estimated GFR (MDRD) > 60 (>60) Glucose 138 H (74-106) mg/dL Calcium 8.7 (8.5-10.1) mg/dL Total Bilirubin 2.3 H D (0.2-1.0) mg/dL AST 200 H D (15-37) U/L ALT 182 H (12-78) U/L Alkaline Phosphatase 177 H D (46-116) U/L Creatine Kinase (39-308) U/L Troponin I (0.000-0.056) ng/mL Total Protein 8.0 (6.4-8.2) g/dL Albumin 4.6 (3.4-5.0) g/dL Globulin 3.4 (2.3-3.5) g/dL Albumin/Globulin Ratio 1.4 (1.2-2.2) Urine Color (YELLOW) Urine Appearance (CLEAR) Urine pH (5.0-8.0) Ur Specific [place] (1.008-1.030) Urine Protein (NEGATIVE) mg/dL Urine Glucose (UA) (NEGATIVE) mg/dL Urine Ketones (NEGATIVE) mg/dL Urine Occult Blood (NEGATIVE) Urine Nitrite (NEGATIVE) Urine Bilirubin (NEGATIVE) Urine Urobilinogen (0.2-1.0) EU/dL Ur Leukocyte Esterase (NEGATIVE) Urine RBC (0-5) Urine WBC (0-5) Ur Epithelial Cells Amorphous Sediment Urine Bacteria Urine Mucus Salicylates 2.7 (2.0-20.0) mg/dL Urine Opiates Screen (NEGATIVE) Ur Oxycodone Screen (NEGATIVE) Urine Methadone Screen (NEGATIVE) Ur Propoxyphene Screen (NEGATIVE) Acetaminophen 0.0 L (10.0-30.0) ug/mL Ur Barbiturates Screen (NEGATIVE) Ur Tricyclics Screen (NEGATIVE) Ur Phencyclidine Scrn (NEGATIVE) Ur Amphetamine Screen (NEGATIVE) U Methamphetamines Scrn (NEGATIVE) Urine MDMA Screen (NEGATIVE) U Benzodiazepines Scrn (NEGATIVE) U Cocaine Metab Screen (NEGATIVE) U Marijuana (THC) Screen (NEGATIVE) Ethyl Alcohol mg/dL 01/07/20 01/07/20 01/07/20 Range/Units 20:00 20:00 21:02 WBC (4.5-11.0) K/uL RBC (4.30-5.90) M/uL Hgb (12.0-15.0) g/dL Hct (40.0-54.0) % MCV (80-98) fL MCH (27-31) pg MCHC (32-36) % Plt Count (150-400) K/uL Neut % (Auto) (36-66) % Lymph % (Auto) (24-44) % Daniels % (Auto) (2-6) % Eos % (Auto) (2-4) % Baso % (Auto) (0-1) % Sodium (140-148) mmol/L Potassium (3.6-5.2) mmol/L Chloride (100-108) mmol/L Carbon Dioxide (21-32) mmol/L Anion Gap (5.0-14.0) mmol/L BUN (7-18) mg/dL Creatinine (0.8-1.3) mg/dL Est Cr Clr Drug Dosing mL/min Estimated GFR (MDRD) (>60) Glucose (74-106) mg/dL Calcium (8.5-10.1) mg/dL Total Bilirubin (0.2-1.0) mg/dL AST (15-37) U/L ALT (12-78) U/L Alkaline Phosphatase (46-116) U/L Creatine Kinase 358 H (39-308) U/L Troponin I < 0.017 (0.000-0.056) ng/mL Total Protein (6.4-8.2) g/dL Albumin (3.4-5.0) g/dL Globulin (2.3-3.5) g/dL Albumin/Globulin Ratio (1.2-2.2) Urine Color (YELLOW) Urine Appearance (CLEAR) Urine pH (5.0-8.0) Ur Specific [place] (1.008-1.030) Urine Protein (NEGATIVE) mg/dL Urine Glucose (UA) (NEGATIVE) mg/dL Urine Ketones (NEGATIVE) mg/dL Urine Occult Blood (NEGATIVE) Urine Nitrite (NEGATIVE) Urine Bilirubin (NEGATIVE) Urine Urobilinogen (0.2-1.0) EU/dL Ur Leukocyte Esterase (NEGATIVE) Urine RBC (0-5) Urine WBC (0-5) Ur Epithelial Cells Amorphous Sediment Urine Bacteria Urine Mucus Salicylates (2.0-20.0) mg/dL Urine Opiates Screen Negative (NEGATIVE) Ur Oxycodone Screen Negative (NEGATIVE) Urine Methadone Screen Negative (NEGATIVE) Ur Propoxyphene Screen Negative (NEGATIVE) Acetaminophen (10.0-30.0) ug/mL Ur Barbiturates Screen Negative (NEGATIVE) Ur Tricyclics Screen Negative (NEGATIVE) Ur Phencyclidine Scrn Negative (NEGATIVE) Ur Amphetamine Screen Negative (NEGATIVE) U Methamphetamines Scrn Negative (NEGATIVE) Urine MDMA Screen Negative (NEGATIVE) U Benzodiazepines Scrn Negative (NEGATIVE) U Cocaine Metab Screen Negative (NEGATIVE) U Marijuana (THC) Screen Negative (NEGATIVE) Ethyl Alcohol 340 mg/dL 01/07/20 01/08/20 01/08/20 Range/Units 21:23 04:57 04:57 WBC 8.0 (4.5-11.0) K/uL RBC 5.32 (4.30-5.90) M/uL Hgb 15.4 H D (12.0-15.0) g/dL Hct 44.3 (40.0-54.0) % MCV 83 (80-98) fL MCH 29 (27-31) pg MCHC 35 (32-36) % Plt Count 229 (150-400) K/uL Neut % (Auto) 79 H (36-66) % Lymph % (Auto) 13 L (24-44) % Daniels % (Auto) 7 H (2-6) % Eos % (Auto) 1 L (2-4) % Baso % (Auto) 1 (0-1) % Sodium 137 L (140-148) mmol/L Potassium 3.5 L (3.6-5.2) mmol/L Chloride 101 (100-108) mmol/L Carbon Dioxide 26 (21-32) mmol/L Anion Gap 13.5 (5.0-14.0) mmol/L BUN 8 (7-18) mg/dL Creatinine 0.7 L (0.8-1.3) mg/dL Est Cr Clr Drug Dosing 117.73 mL/min Estimated GFR (MDRD) > 60 (>60) Glucose 170 H (74-106) mg/dL Calcium 7.4 L (8.5-10.1) mg/dL Total Bilirubin (0.2-1.0) mg/dL AST (15-37) U/L ALT (12-78) U/L Alkaline Phosphatase (46-116) U/L Creatine Kinase (39-308) U/L Troponin I (0.000-0.056) ng/mL Total Protein (6.4-8.2) g/dL Albumin (3.4-5.0) g/dL Globulin (2.3-3.5) g/dL Albumin/Globulin Ratio (1.2-2.2) Urine Color Yellow (YELLOW) Urine Appearance Clear (CLEAR) Urine pH 5.5 (5.0-8.0) Ur Specific [place] 1.010 (1.008-1.030) Urine Protein Negative (NEGATIVE) mg/dL Urine Glucose (UA) Negative (NEGATIVE) mg/dL Urine Ketones 40 H (NEGATIVE) mg/dL Urine Occult Blood Trace-intact H (NEGATIVE) Urine Nitrite Negative (NEGATIVE) Urine Bilirubin Negative (NEGATIVE) Urine Urobilinogen 0.2 (0.2-1.0) EU/dL Ur Leukocyte Esterase Negative (NEGATIVE) Urine RBC 0-5 (0-5) Urine WBC 0-5 (0-5) Ur Epithelial Cells Not seen Amorphous Sediment Few Urine Bacteria Not seen Urine Mucus Not seen Salicylates (2.0-20.0) mg/dL Urine Opiates Screen (NEGATIVE) Ur Oxycodone Screen (NEGATIVE) Urine Methadone Screen (NEGATIVE) Ur Propoxyphene Screen (NEGATIVE) Acetaminophen (10.0-30.0) ug/mL Ur Barbiturates Screen (NEGATIVE) Ur Tricyclics Screen (NEGATIVE) Ur Phencyclidine Scrn (NEGATIVE) Ur Amphetamine Screen (NEGATIVE) U Methamphetamines Scrn (NEGATIVE) Urine MDMA Screen (NEGATIVE) U Benzodiazepines Scrn (NEGATIVE) U Cocaine Metab Screen (NEGATIVE) U Marijuana (THC) Screen (NEGATIVE) Ethyl Alcohol mg/dL Med Orders - Current: Current Medications Acetaminophen (Tylenol) 650 mg PO Q4H PRN PRN Reason: Pain (Mild 1-3)/fever Albuterol (Proventil Neb Soln) 2.5 mg NEB Q4H PRN PRN Reason: Shortness Of Breath/wheezing Docusate Sodium (Colace) 100 mg PO BID PRN PRN Reason: Constipation Fluoxetine HCl (Prozac) 40 mg PO DAILY [facility] Last Admin: 01/08/20 09:23 Dose: 40 mg Gabapentin (Neurontin) 400 mg PO TID [facility] Last Admin: 01/08/20 09:23 Dose: 400 mg Sodium Chloride (Normal Saline) 1,000 mls @ 150 mls/hr IV ASDIRECTED [facility] Last Admin: 01/08/20 09:22 Dose: 150 mls/hr Sodium Chloride (Normal Saline) 1,000 mls @ 125 mls/hr IV ASDIRECTED [facility] Lorazepam (Ativan) 0 mg IV ASDIRECTED [facility]; Protocol Last Admin: 01/08/20 08:10 Dose: 1 mg Metoprolol Tartrate (Lopressor) 25 mg PO DAILY [facility] Last Admin: 01/08/20 08:11 Dose: 25 mg Morphine Sulfate (Morphine) 2 mg IVPUSH Q2H PRN PRN Reason: Pain (severe 7-10) Ondansetron HCl (Zofran Odt) 4 mg PO Q6H PRN PRN Reason: Nausea able to take PO Ondansetron HCl (Zofran) 4 mg IV Q4H PRN PRN Reason: Nausea/Vomiting Last Admin: 01/07/20 23:35 Dose: 4 mg Oxycodone HCl (Oxycodone) 5 mg PO Q4H PRN PRN Reason: Pain (moderate 4-6) Quetiapine Fumarate (Seroquel) 25 mg PO BEDTIME [facility] Last Admin: 01/08/20 02:46 Dose: Not Given Sodium Chloride (Saline Flush) 10 ml FLUSH ASDIRECTED PRN PRN Reason: Keep Vein Open Last Admin: 01/07/20 20:02 Dose: 10 ml Trazodone HCl (Trazodone) 50 mg PO BEDTIME [facility] Last Admin: 01/08/20 02:46 Dose: Not Given Discontinued Medications Multivitamins/Minerals 10 ml/Thiamine HCl 200 mg/ Folic Acid 1 mg/ Magnesium Sulfate 2 gm/ Dextrose/Lactated Ringer' s 1,016.2 mls @ 500 mls/hr IV ONETIME ONE Stop: 01/07/20 21:49 Last Admin: 01/07/20 20:28 Dose: 500 mls/hr Sodium Chloride (Normal Saline) 1,000 mls @ 250 mls/hr IV ONETIME ONE Stop: 01/08/20 03:05 Last Admin: 01/07/20 23:35 Dose: 250 mls/hr Lorazepam (Ativan) 1 mg IVPUSH ONETIME ONE Stop: 01/07/20 19:49 Last Admin: 01/07/20 20:01 Dose: 1 mg Ondansetron HCl (Zofran) 4 mg IVPUSH ONETIME ONE Stop: 01/07/20 21:41 Last Admin: 01/07/20 21:52 Dose: 4 mg Pantoprazole Sodium (Protonix Iv) 40 mg IV ONETIME ONE Stop: 01/07/20 23:07 Last Admin: 01/07/20 23:34 Dose: 40 mg Potassium Chloride (Klor-Con M20) 40 meq PO ONETIME ONE Stop: 01/08/20 09:01 Last Admin: 01/08/20 09:23 Dose: 40 meq - Exam General: Reports: Alert, Oriented, Cooperative, Mild Distress Lungs: Reports: Clear to Auscultation, Normal Respiratory Effort Cardiovascular: Reports: Regular Rate, Regular Rhythm, No Murmurs GI/Abdominal Exam: Soft, Non-Tender, No Organomegaly, No Distention
[2020-01-08 11:59] VITALS: BP 126/69; PULSE 79
[2020-01-08] MEDS ORDERED: Sodium Chloride 0.9% 1,000 ML IV SCH (18:00)
== END 2020-01-08 11:15 | disposition other institution (70) ==
LOC: JP.ED 19:08 → JP.ICU 21:35
PROVIDERS: ADMIT Hospitalist; ATTEND Hospitalist
DX: F10.129 Alcohol abuse with intoxication, unspecified (principal); E86.0 Dehydration; I10 Essential (primary) hypertension; E11.9 Type 2 diabetes mellitus without complications; F41.9 Anxiety disorder, unspecified; F17.210 Nicotine dependence, cigarettes, uncomplicated; F32.89 Other specified depressive episodes; Z88.0 Allergy status to penicillin; Z88.1 Allergy status to other antibiotic agents; Z79.82 Long term (current) use of aspirin; Z79.899 Other long term (current) drug therapy; Y90.0 Blood alcohol level of less than 20 mg/100 ml; Z98.84 Bariatric surgery status
CPT/HCPCS: 36415; 80048; 80053; 80305; 80307; 81001; 82550; 84484; 85025; 93005; 96361; 96365; 96366; 96375; 96376; 99285; A9270; C9113; G0378; J2060; J2405; J3411; J3475; J7030; J7121; J3490

== ENCOUNTER 2020-01-14 08:57 | Emergency (ER) | payer BC ==
[2020-01-14 09:10] VITALS: BP 136/101; PULSE 123
[2020-01-14] MEDS ORDERED: MVI, Adult with Vitamin K 10 ML, Thiamine 100 MG, Folic Acid 1 MG, Magnesium Sulfate 3 ... IV SCH ×5 (09:30)
[2020-01-14] MEDS ORDERED: Ondansetron 4 MG/2 ML SDV IVPUSH ONE (09:38)
--- NOTE | 2020-01-14 09:38 | EDM.PDOCBH ---
ED HPI GENERAL MEDICAL PROBLEM - General Chief Complaint: Drug or Alcohol Abuse Stated Complaint: EVAL FOR DETOX Time Seen by Provider: 01/14/20 09:15 Source of Information: Reports: Patient, Family History Limitations: Reports: Intoxication - History of Present Illness INITIAL COMMENTS - FREE TEXT/NARRATIVE: 49-year-old male with a chronic alcohol abuse problem has been drinking daily for the past 3 days. He was in detox 5 days ago, left after 2 days and started drinking again. This time they have a long-term inpatient treatment set up form after detox. His only complaint besides persistent nausea and dry heaves, is a painful second toe which is bruised and he does not know what he did do it. Duration: Day(s): (Has been drinking for 3 days) Associated Symptoms: Reports: Nausea/Vomiting, Other (Left second toe pain) - Related Data Allergies Allergy/AdvReac Type Severity Reaction Status Date / Time Penicillins Allergy Hives Verified 01/14/20 09:14 erythromycin base AdvReac Nausea Verified 01/14/20 09:23 Home Meds: Home Meds Metoprolol Tartrate [Lopressor] 25 mg PO DAILY 03/29/14 [History] Omeprazole 20 mg PO DAILY 11/05/16 [History] Prazosin HCl [Prazosin] 5 mg PO BEDTIME 11/05/16 [History] traZODone HCl [Trazodone HCl] 50 mg PO BEDTIME 11/05/16 [History] Aspirin [Low Dose Aspirin EC] 81 mg PO DAILY 01/07/20 [History] Dextroamphetamine/Amphetamine [Adderall 20 mg Tablet] 1 tab PO DAILY 01/07/20 [ History] Disulfiram 250 mg PO BID 01/07/20 [History] FLUoxetine HCl [Prozac] 40 mg PO DAILY 01/07/20 [History] Naltrexone 50 mg PO DAILY 01/07/20 [History] QUEtiapine [SEROquel] 25 mg PO BEDTIME 01/07/20 [History] Tamsulosin HCl [Flomax] 0.4 mg PO DAILY 01/07/20 [History] Past Medical History HEENT History: Reports: Impaired Vision Cardiovascular History: Reports: Arrhythmia, CAD, Hypertension, [place], Other (See Below) Other Cardiovascular History: svt Respiratory History: Reports: Bronchitis, Recurrent Gastrointestinal History: Reports: Diverticulosis Genitourinary History: Reports: Prostate Disorder, Renal Calculus Musculoskeletal History: Reports: Fracture Other Musculoskeletal History: dislocated shoulder Neurological History: Reports: Concussion Psychiatric History: Reports: Addiction, Anxiety, Depression, Panic Attack, Psych Hospitalization(s), PTSD, Suicide Attempt Other Psychiatric History: Major depressive disorder Endocrine/Metabolic History: Reports: Diabetes, Type II, Other (See Below) Other Endocrine/Metabolic History: type II diabetes history Hematologic History: Reports: B12 Deficiency, Folic Acid Immunologic History: Reports: Other (See Below) Other Immunologic History: anaplasmosis, lyme disease Dermatologic History: Reports: Eczema - Infectious Disease History Infectious Disease History: Reports: Chicken Pox - Past Surgical History GI Surgical History: Reports: Bariatric Procedure, Cholecystectomy, Colonoscopy Musculoskeletal Surgical History: Reports: Arthroscopic Knee Social & Family History - Caffeine Use Caffeine Use: Reports: Coffee - Alcohol Use Days Per Week of Alcohol Use: 7 Number of Drinks Per Day: 5 Total Drinks Per Week: 35 - Recreational Drug Use Recreational Drug Use: No - Living Situation & Occupation Living situation: Reports: with Significant Other (reports is getting divorce from in [place], living with his son.) Occupation: Employed ED ROS GENERAL - Review of Systems Review Of Systems: See Below Constitutional: Reports: Malaise. Denies: Fever, Chills HEENT: Reports: No Symptoms Respiratory: Denies: Shortness of Breath Cardiovascular: Denies: Chest Pain GI/Abdominal: Reports: Nausea, Vomiting. Denies: Abdominal Pain Skin: Reports: Bruising (Bruising around the second toe of the left foot) Neurological: Reports: Confusion, Other (Fairly intoxicated) Psychiatric: Reports: Anxiety, Depression ED EXAM, BEHAVIORAL HEALTH - Physical Exam Exam: See Below Exam Limited By: Intoxication General Appearance: Alert, Moderate Distress Eye Exam: Bilateral Eye: EOMI, Normal Inspection (No jaundice) Head: Atraumatic Neck: Non-Tender Respiratory/Chest: No Respiratory Distress Cardiovascular: Regular Rate, Rhythm, Tachycardia Extremities: Other (Patient does have ecchymosis around the distal aspect of the second toe on the left foot, no subungual hematoma. It is tender to palpation, no significant deformity). No: Pedal Edema Neurological: Alert, Oriented x 3 (Despite being intoxicated he is oriented) Psychiatric: Depressed Mood, Tearful COURSE, BEHAVIORAL HEALTH COMP - Course Vital Signs: Last Vital Signs Temp 97.7 F 01/14/20 09:10 Pulse 123 H 01/14/20 09:10 Resp 16 01/14/20 09:10 BP 136/101 H 01/14/20 09:10 Pulse Ox 96 01/14/20 09:10 Orders, Labs, Meds: Laboratory Tests 01/14/20 01/14/20 01/14/20 Range/Units 09:26 09:26 09:26 WBC 9.4 (4.5-11.0) K/uL RBC 5.49 (4.30-5.90) M/uL Hgb 16.2 H (12.0-15.0) g/dL Hct 46.5 (40.0-54.0) % MCV 85 (80-98) fL MCH 30 (27-31) pg MCHC 35 (32-36) % Plt Count 286 (150-400) K/uL Neut % (Auto) 64 (36-66) % Lymph % (Auto) 23 L (24-44) % Barron % (Auto) 7 H (2-6) % Eos % (Auto) 5 H (2-4) % Baso % (Auto) 1 (0-1) % Sodium 145 (140-148) mmol/L Potassium 3.9 (3.6-5.2) mmol/L Chloride 107 (100-108) mmol/L Carbon Dioxide 22 (21-32) mmol/L Anion Gap 15.8 H (5.0-14.0) mmol/L BUN 11 (7-18) mg/dL Creatinine 0.7 L (0.8-1.3) mg/dL Est Cr Clr Drug Dosing 117.73 mL/min Estimated GFR (MDRD) > 60 (>60) Glucose 150 H (74-106) mg/dL Calcium 7.6 L (8.5-10.1) mg/dL Total Bilirubin 0.5 D (0.2-1.0) mg/dL AST 76 H (15-37) U/L ALT 204 H (12-78) U/L Alkaline Phosphatase 158 H (46-116) U/L Total Protein 6.2 L (6.4-8.2) g/dL Albumin 3.5 (3.4-5.0) g/dL Globulin 2.7 (2.3-3.5) g/dL Albumin/Globulin Ratio 1.3 (1.2-2.2) Urine Opiates Screen (NEGATIVE) Ur Oxycodone Screen (NEGATIVE) Urine Methadone Screen (NEGATIVE) Ur Propoxyphene Screen (NEGATIVE) Ur Barbiturates Screen (NEGATIVE) Ur Tricyclics Screen (NEGATIVE) Ur Phencyclidine Scrn (NEGATIVE) Ur Amphetamine Screen (NEGATIVE) U Methamphetamines Scrn (NEGATIVE) Urine MDMA Screen (NEGATIVE) U Benzodiazepines Scrn (NEGATIVE) U Cocaine Metab Screen (NEGATIVE) U Marijuana (THC) Screen (NEGATIVE) Ethyl Alcohol 289 mg/dL 01/14/20 Range/Units 09:43 WBC (4.5-11.0) K/uL RBC (4.30-5.90) M/uL Hgb (12.0-15.0) g/dL Hct (40.0-54.0) % MCV (80-98) fL MCH (27-31) pg MCHC (32-36) % Plt Count (150-400) K/uL Neut % (Auto) (36-66) % Lymph % (Auto) (24-44) % Barron % (Auto) (2-6) % Eos % (Auto) (2-4) % Baso % (Auto) (0-1) % Sodium (140-148) mmol/L Potassium (3.6-5.2) mmol/L Chloride (100-108) mmol/L Carbon Dioxide (21-32) mmol/L Anion Gap (5.0-14.0) mmol/L BUN (7-18) mg/dL Creatinine (0.8-1.3) mg/dL Est Cr Clr Drug Dosing mL/min Estimated GFR (MDRD) (>60) Glucose (74-106) mg/dL Calcium (8.5-10.1) mg/dL Total Bilirubin (0.2-1.0) mg/dL AST (15-37) U/L ALT (12-78) U/L Alkaline Phosphatase (46-116) U/L Total Protein (6.4-8.2) g/dL Albumin (3.4-5.0) g/dL Globulin (2.3-3.5) g/dL Albumin/Globulin Ratio (1.2-2.2) Urine Opiates Screen Negative (NEGATIVE) Ur Oxycodone Screen Negative (NEGATIVE) Urine Methadone Screen Negative (NEGATIVE) Ur Propoxyphene Screen Negative (NEGATIVE) Ur Barbiturates Screen Negative (NEGATIVE) Ur Tricyclics Screen Negative (NEGATIVE) Ur Phencyclidine Scrn Negative (NEGATIVE) Ur Amphetamine Screen Negative (NEGATIVE) U Methamphetamines Scrn Negative (NEGATIVE) Urine MDMA Screen Negative (NEGATIVE) U Benzodiazepines Scrn Presumptive positive H (NEGATIVE) U Cocaine Metab Screen Negative (NEGATIVE) U Marijuana (THC) Screen Negative (NEGATIVE) Ethyl Alcohol mg/dL Medications Discontinued Medications Generic Name Dose Route Start Last Admin Trade Name Freq PRN Reason Stop Dose Admin Multivitamins/Minerals 10 ml/ 1,017.2 mls @ 500 mls/hr 01/14/20 10:00 09:56 Thiamine HCl 100 mg/ Folic IV 01/14/20 12:02 500 mls/hr Acid 1 mg/ Magnesium Sulfate 3 ONETIME ONE Administration gm/ Sodium Chloride Lorazepam 0.5 mg 01/14/20 09:39 01/14/20 09:49 Ativan IVPUSH 01/14/20 09:40 0.5 mg ONETIME ONE Administration Ondansetron HCl 4 mg 01/14/20 09:38 01/14/20 09:49 Zofran IVPUSH 01/14/20 09:39 4 mg ONETIME ONE Administration Re-Assessment/Re-Exam: An IV was started, patient will be given 1 L banana bag while awaiting a CBC, CMP, EtOH and an x-ray of the second toe. Because of continued retching, patient was given 4 mg of IV Zofran and 0.5 mg of IV Ativan. EtOH is 0.286, x-ray of his toe does show a small avulsion fracture of the distal phalanx. Liver enzymes are mildly elevated, white count is normal. Patient is physically stable for detox and will be transferred after his 1 L of IV fluids. Departure - Departure Time of Disposition: 11:22 Disposition: DC/Tfer to Other 70 Clinical Impression: Alcohol intoxication Qualifiers: Complication of substance-induced condition: uncomplicated Qualified Code(s): F10.920 - Alcohol use, unspecified with intoxication, uncomplicated Toe fracture, left Qualifiers: Encounter type: initial encounter Toe: lesser toe Fracture type: closed Phalanx : distal Fracture alignment: displaced Qualified Code(s): S92.532A - Displaced fracture of distal phalanx of left lesser toe(s), initial encounter for closed fracture - Discharge Information Instructions: Alcohol Use Disorder, Toe Fracture, [id number] Referrals: Baljeet Lucio MD [Primary Care Provider] - Forms: ED Department Discharge Care Plan Goals: Pastor taping the toes may be helpful, continue activity as tolerated. Follow recommendations for alcohol detox and treatment and avoid alcohol in the future. Sepsis Event Note - Evaluation Sepsis Screening Result: No Definite Risk - Focused Exam Vital Signs: Vital Signs Temp Pulse Resp BP Pulse Ox 01/14/20 09:10 97.7 F 123 H 16 136/101 H 96 01/14/20 09:09 97.7 F 123 H 16 136/101 H 96 Date Exam was Performed: 01/14/20 Time Exam was Performed: 13:38
[2020-01-14] MEDS ORDERED: LORazepam 2 MG/ML SDV IVPUSH ONE (09:39)
[2020-01-14] MEDS ORDERED: MVI, Adult with Vitamin K 10 ML, Thiamine 100 MG, Folic Acid 1 MG, Magnesium Sulfate 3 ... IV ONE ×5 (10:00)
--- NOTE | 2020-01-14 10:58 | CR ---
Toes Second Digit Lt T1 CLINICAL HISTORY: Injury FINDINGS: 3 views of the second toe show an articular marginal chip fracture off the dorsal base of the second distal phalanx IMPRESSION: Fracture second distal phalanx
== END 2020-01-14 11:21 | disposition other institution (70) ==
LOC: JP.ED 08:57
DX: S92.532A Displaced fracture of distal phalanx of left lesser toe(s), initial encounter for closed fracture (principal); F10.129 Alcohol abuse with intoxication, unspecified; Y90.8 Blood alcohol level of 240 mg/100 ml or more; I25.10 Atherosclerotic heart disease of native coronary artery without angina pectoris; I10 Essential (primary) hypertension; I25.2 Old myocardial infarction; F41.9 Anxiety disorder, unspecified; F32.9 Major depressive disorder, single episode, unspecified; E11.9 Type 2 diabetes mellitus without complications; Z88.0 Allergy status to penicillin; Z88.1 Allergy status to other antibiotic agents; Z79.82 Long term (current) use of aspirin; Z79.899 Other long term (current) drug therapy; X58.XXXA Exposure to other specified factors, initial encounter
CPT/HCPCS: 36415; 73660; 80053; 80305; 80307; 85025; 96365; 96375; 99284; J2060; J2405; J3411; J3475; J7030; J3490

== ENCOUNTER 2020-01-21 12:09 | Inpatient (IN) | payer BC ==
[2020-01-21] MEDS ORDERED: MVI, Adult with Vitamin K 10 ML, Thiamine 100 MG, Folic Acid 1 MG, Magnesium Sulfate 3 ... IV SCH ×5 (12:15)
[2020-01-21] MEDS ORDERED: LORazepam 2 MG/ML SDV IVPUSH ONE (12:15)
[2020-01-21] MEDS ORDERED: Ondansetron 4 MG/2 ML SDV IVPUSH ONE (12:15)
--- NOTE | 2020-01-21 12:31 | EDM.PDOC ---
ED HPI GENERAL MEDICAL PROBLEM - General Chief Complaint: Abdominal Pain Stated Complaint: SIZURE Time Seen by Provider: 01/21/20 12:10 Source of Information: Reports: Patient History Limitations: Reports: No Limitations - History of Present Illness INITIAL COMMENTS - FREE TEXT/NARRATIVE: 49-year-old male, chronic alcoholic who I saw just 1 week ago and sent to detox , returns with abdominal pain, nausea and vomiting, alcohol intoxication. He has periorbital ecchymosis around the left eye and bruises on his extremities. He is retching and complaining of significant abdominal pain, especially the upper abdomen. He was set up for long-term treatment but decided to leave and drink again. He has intense epigastric and left upper quadrant pain for the last couple of hours. Dry heaves and emesis but no hematemesis, normal bowel movement earlier today. He has no recollection of what he is done over the past day and a half. Onset: Unknown/Unsure Associated Symptoms: Reports: Confusion, Nausea/Vomiting, Other (Upper abdominal pain) - Related Data Allergies Allergy/AdvReac Type Severity Reaction Status Date / Time Penicillins Allergy Hives Verified 01/14/20 09:14 erythromycin base AdvReac Nausea Verified 01/14/20 09:23 Home Meds: Home Meds Metoprolol Tartrate [Lopressor] 25 mg PO DAILY 03/29/14 [History] Omeprazole 20 mg PO DAILY 11/05/16 [History] Prazosin HCl [Prazosin] 5 mg PO BEDTIME 11/05/16 [History] traZODone HCl [Trazodone HCl] 50 mg PO BEDTIME 11/05/16 [History] Aspirin [Low Dose Aspirin EC] 81 mg PO DAILY 01/07/20 [History] Dextroamphetamine/Amphetamine [Adderall 20 mg Tablet] 1 tab PO DAILY 01/07/20 [ History] Disulfiram 250 mg PO BID 01/07/20 [History] FLUoxetine HCl [Prozac] 40 mg PO DAILY 01/07/20 [History] Naltrexone 50 mg PO DAILY 01/07/20 [History] QUEtiapine [SEROquel] 25 mg PO BEDTIME 01/07/20 [History] Tamsulosin HCl [Flomax] 0.4 mg PO DAILY 01/07/20 [History] Past Medical History HEENT History: Reports: Impaired Vision Cardiovascular History: Reports: Arrhythmia, CAD, Hypertension, MO, Other (See Below) Other Cardiovascular History: svt Respiratory History: Reports: Bronchitis, Recurrent Gastrointestinal History: Reports: Diverticulosis Genitourinary History: Reports: Prostate Disorder, Renal Calculus Musculoskeletal History: Reports: Fracture Other Musculoskeletal History: dislocated shoulder Neurological History: Reports: Concussion Psychiatric History: Reports: Addiction, Anxiety, Depression, Panic Attack, Psych Hospitalization(s), PTSD, Suicide Attempt Other Psychiatric History: Major depressive disorder Endocrine/Metabolic History: Reports: Diabetes, Type II, Other (See Below) Other Endocrine/Metabolic History: type II diabetes history Hematologic History: Reports: B12 Deficiency, Folic Acid Immunologic History: Reports: Other (See Below) Other Immunologic History: anaplasmosis, lyme disease Dermatologic History: Reports: Eczema - Infectious Disease History Infectious Disease History: Reports: Chicken Pox - Past Surgical History GI Surgical History: Reports: Bariatric Procedure, Cholecystectomy, Colonoscopy Musculoskeletal Surgical History: Reports: Arthroscopic Knee Social & Family History - Caffeine Use Caffeine Use: Reports: Coffee - Living Situation & Occupation Living situation: Reports: with Significant Other (reports is getting divorce from in [place], living with his son.) Occupation: Employed ED ROS GENERAL - Review of Systems Review Of Systems: See Below Constitutional: Reports: Malaise, Decreased Appetite. Denies: Fever, Chills HEENT: Denies: Vision Change Respiratory: Denies: Shortness of Breath GI/Abdominal: Reports: Abdominal Pain, Nausea, Vomiting ED EXAM, GENERAL - Physical Exam Exam: See Below Exam Limited By: No Limitations General Appearance: Alert, Moderate Distress Eye Exam: Left Eye: Periorbital Changes (Ecchymosis around the left eye) Head: Other (Several superficial bruises on the forehead) Neck: Non-Tender Respiratory/Chest: No Respiratory Distress, Lungs Clear Cardiovascular: Regular Rate, Rhythm, Tachycardia GI/Abdominal: Tender (Hypoactive bowel sounds very tender to palpation over the epigastric and left upper quadrant with guarding), Abnormal Bowel Sounds Extremities: Other (Numerous superficial abrasions and abrasions to the arms and legs) Neurological: No Motor/Sensory Deficits, Other (Intoxicated) Psychiatric: Anxious Skin Exam: Warm, Dry, Other (Numerous bruises as mentioned) Course - Vital Signs Last Recorded V/S: Last Vital Signs Temp 99.2 F 01/21/20 14:24 Pulse 116 H 01/21/20 17:07 Resp 20 01/21/20 17:07 BP 162/99 H 01/21/20 17:07 Pulse Ox 96 01/21/20 17:07 - Orders/Labs/Meds Orders: Active Orders 24 hr Category Date Time Status Patient Status [ADT] Routine ADT 01/21/20 16:41 Active Ambulate [RC] QID Care 01/21/20 16:41 Active CIWAA Assessment [RC] Q1H Care 01/21/20 16:41 Active Cardiac Monitoring [RC] .As Directed Care 01/21/20 16:41 Active Height and Weight [RC] DAILY Care 01/21/20 16:41 Active Intake and Output [RC] QSHIFT Care 01/21/20 16:41 Active Notify Provider Vital Signs [RC] ASDIRECTED Care 01/21/20 16:41 Active Notify Provider [RC] PRN Care 01/21/20 16:41 Active Oxygen Therapy [RC] PRN Care 01/21/20 16:41 Active Peripheral IV Care [RC] . DIRECTED Care 01/21/20 16:41 Active Pulse Oximetry [RC] CONTINUOUS Care 01/21/20 16:41 Active Up With Assistance [RC] ASDIRECTED Care 01/21/20 16:41 Active Up to Chair [RC] QID Care 01/21/20 16:41 Active Vital Signs [RC] Q2H Care 01/21/20 16:41 Active Nothing per Oral Now Diet [DIET] Diet 01/21/20 Lunch Active CBC WITH AUTO DIFF [HEME] AM Lab 01/22/20 05:11 Ordered COMPREHENSIVE METABOLIC PN,CMP [CHEM] AM Lab 01/22/20 05:11 Ordered CULTURE BLOOD [BC] Urgent Lab 01/21/20 14:30 Received CULTURE BLOOD [BC] Urgent Lab 01/21/20 14:40 Received INR,PT,PROTHROMBIN TIME [COAG] AM Lab 01/22/20 05:11 Ordered LACTIC ACID [CHEM] Stat Lab 01/21/20 18:00 Ordered LACTIC ACID [CHEM] Timed Lab 01/22/20 05:00 Ordered Acetaminophen [Tylenol] Med 01/21/20 16:41 Active 650 mg PO Q4H PRN Aspirin [Halfprin] Med 01/22/20 09:00 Active 81 mg PO DAILY FLUoxetine [PROzac] Med 01/22/20 09:00 Active 40 mg PO DAILY Folic Acid Med 01/21/20 17:00 Active 1 mg PO DAILY HYDROmorphone [Dilaudid] Med 01/21/20 16:41 Active 0.5 mg IVPUSH Q2H PRN LORazepam [Ativan] Med 01/21/20 16:41 Active See Protocol IV ASDIRECTED LORazepam [Ativan] Med 01/21/20 16:41 Active See Protocol PO ASDIRECTED Lactated Ringers [Ringers, Lactated] 1,000 ml Med 01/21/20 18:15 Active IV ASDIRECTED Lactated Ringers [Ringers, Lactated] 500 ml Med 01/21/20 16:41 Active IV .BOLUS Meropenem [Merrem] 1 gm Med 01/22/20 00:05 Active Sodium Chloride 0.9% [Normal Saline] 100 ml IV Q8H Metoprolol Tartrate [Lopressor] Med 01/22/20 09:00 Active 25 mg PO DAILY Ondansetron [Zofran] Med 01/21/20 16:41 Active 4 mg IV Q4H PRN Pantoprazole [ProTONIX IV] Med 01/21/20 17:00 Active 40 mg IV Q12H Prazosin [Minpress] Med 01/21/20 21:00 Active 5 mg PO BEDTIME QUEtiapine [SEROqueL] Med 01/21/20 21:00 Active 25 mg PO BEDTIME Sodium Chloride 0.9% [Saline Flush] Med 01/21/20 16:41 Active 10 ml FLUSH ASDIRECTED PRN Tamsulosin [Flomax] Med 01/22/20 09:00 Active 0.4 mg PO DAILY Thiamine [Vitamin B-1] Med 01/21/20 17:00 Active 100 mg PO DAILY polyethylene glycoL 3350 [MiraLAX] Med 01/21/20 16:41 Active 17 gm PO DAILY PRN traZODone Med 01/21/20 21:00 Active 50 mg PO BEDTIME Blood Culture x2 Reflex Set [OM.PC] Urgent Oth 01/21/20 14:18 Ordered Peripheral IV Insertion Adult [OM.PC] Routine Oth 01/21/20 16:41 Ordered Seizure Precautions [OM.PC] Routine Oth 01/21/20 16:41 Ordered Sequential Compression Device [OM.PC] Per Unit Routine Oth 01/21/20 16:41 Ordered Resuscitation Status Routine Resus Stat 01/21/20 15:13 Ordered Medication Orders Acetaminophen (Tylenol) 650 mg PO Q4H PRN PRN Reason: Pain (Mild 1-3)/fever Amphetamine/Dextroamphetamine (Adderall) 20 mg PO DAILY [facility] Aspirin (Halfprin) 81 mg PO DAILY CARE[facility] Fluoxetine HCl (Prozac) 40 mg PO DAILY [facility] Folic Acid (Folic Acid) 1 mg PO DAILY C[facility] Last Admin: 01/21/20 17:22 Dose: 1 mg Hydromorphone HCl (Dilaudid) 0.5 mg IVPUSH Q2H PRN PRN Reason: Pain Last Admin: 01/21/20 17:03 Dose: 0.5 mg Lactated Ringer's (Ringers, Lactated) 500 mls @ 500 mls/hr IV .BOLUS CAREY Stop: 01/21/20 19:42 Last Admin: 01/21/20 17:39 Dose: 500 mls/hr Lactated Ringer's (Ringers, Lactated) 1,000 mls @ 125 mls/hr IV ASDIRECTED CAREY Meropenem 1 gm/ Sodium (Chloride) 100 mls @ 200 mls/hr IV Q8H [facility] Metronidazole 500 mg/ Premix 100 mls @ 100 mls/hr IV Q8H C[facility] Lorazepam (Ativan) 0 mg IV ASDIRECTED CAREY; Protocol Lorazepam (Ativan) 0 mg PO ASDIRECTED CAREY; Protocol Last Admin: 01/21/20 17:02 Dose: 2 mg Metoprolol Tartrate (Lopressor) 25 mg PO DAILY [facility] Ondansetron HCl (Zofran) 4 mg IV Q4H PRN PRN Reason: Nausea/Vomiting Pantoprazole Sodium (Protonix Iv) 40 mg IV Q12H C[facility] Last Admin: 01/21/20 17:22 Dose: 40 mg Polyethylene Glycol (Miralax) 17 gm PO DAILY PRN PRN Reason: Constipation Prazosin HCl (Minpress) 5 mg PO BEDTIME [facility] Quetiapine Fumarate (Seroquel) 25 mg PO BEDTIME [facility] Sodium Chloride (Saline Flush) 10 ml FLUSH ASDIRECTED PRN PRN Reason: Keep Vein Open Tamsulosin HCl (Flomax) 0.4 mg PO DAILY [facility] Thiamine HCl (Vitamin B-1) 100 mg PO DAILY [facility] Last Admin: 01/21/20 17:22 Dose: 100 mg Trazodone HCl (Trazodone) 50 mg PO BEDTIME [facility] Labs: Laboratory Tests 01/21/20 01/21/20 01/21/20 Range/Units 12:15 12:28 12:28 WBC 14.2 H (4.5-11.0) K/uL RBC 5.26 (4.30-5.90) M/uL Hgb 15.3 H (12.0-15.0) g/dL Hct 45.0 (40.0-54.0) % MCV 86 (80-98) fL MCH 29 (27-31) pg MCHC 34 (32-36) % Plt Count 344 (150-400) K/uL Neut % (Auto) 84 H (36-66) % Lymph % (Auto) 11 L (24-44) % Mower % (Auto) 4 (2-6) % Eos % (Auto) 0 L (2-4) % Baso % (Auto) 0 (0-1) % Puncture Site ABG pH (7.350-7.450) ABG pCO2 (35.0-42.0) mmHg ABG pO2 (75.0-100.0) mmHg ABG HCO3 (22.0-26.0) mmol/L ABG Total CO2 (23.0-27.0) mmol/L ABG O2 Saturation (95.0-98.0) % ABG O2 Content (15.0-23.0) %vol ABG Base Excess mm/L ABG Hemoglobin (13.5-18.0) g/dL ABG Oxyhemoglobin % ABG Carboxyhemoglobin (0.0-1.6) % ABG Methemoglobin % Jun Test O2 Delivery Device Oxygen Flow Rate L Sodium 140 (140-148) mmol/L Potassium 4.0 (3.6-5.2) mmol/L Chloride 101 (100-108) mmol/L Carbon Dioxide 17 L (21-32) mmol/L Anion Gap 26.0 H (5.0-14.0) mmol/L BUN 13 (7-18) mg/dL Creatinine 0.8 (0.8-1.3) mg/dL Est Cr Clr Drug Dosing TNP Estimated GFR (MDRD) > 60 (>60) Glucose 174 H (74-106) mg/dL Lactic Acid (0.4-2.0) mmol/L Calcium 7.7 L (8.5-10.1) mg/dL Total Bilirubin 0.8 D (0.2-1.0) mg/dL AST 75 H (15-37) U/L ALT 176 H (12-78) U/L Alkaline Phosphatase 185 H (46-116) U/L C-Reactive Protein (0.0-0.3) mg/dL Total Protein 6.3 L (6.4-8.2) g/dL Albumin 3.7 (3.4-5.0) g/dL Globulin 2.6 (2.3-3.5) g/dL Albumin/Globulin Ratio 1.4 (1.2-2.2) Lipase 173 (73-393) U/L Procalcitonin ng/mL Urine Color (YELLOW) Urine Appearance (CLEAR) Urine pH (5.0-8.0) Ur Specific [place] (1.008-1.030) Urine Protein (NEGATIVE) mg/dL Urine Glucose (UA) (NEGATIVE) mg/dL Urine Ketones (NEGATIVE) mg/dL Urine Occult Blood (NEGATIVE) Urine Nitrite (NEGATIVE) Urine Bilirubin (NEGATIVE) Urine Urobilinogen (0.2-1.0) EU/dL Ur Leukocyte Esterase (NEGATIVE) Urine RBC (0-5) Urine WBC (0-5) Ur Epithelial Cells Amorphous Sediment Urine Bacteria Urine Mucus Ethyl Alcohol 251 mg/dL 01/21/20 01/21/20 01/21/20 Range/Units 13:29 13:30 13:30 WBC (4.5-11.0) K/uL RBC (4.30-5.90) M/uL Hgb (12.0-15.0) g/dL Hct (40.0-54.0) % MCV (80-98) fL MCH (27-31) pg MCHC (32-36) % Plt Count (150-400) K/uL Neut % (Auto) (36-66) % Lymph % (Auto) (24-44) % Mower % (Auto) (2-6) % Eos % (Auto) (2-4) % Baso % (Auto) (0-1) % Puncture Site ABG pH (7.350-7.450) ABG pCO2 (35.0-42.0) mmHg ABG pO2 (75.0-100.0) mmHg ABG HCO3 (22.0-26.0) mmol/L ABG Total CO2 (23.0-27.0) mmol/L ABG O2 Saturation (95.0-98.0) % ABG O2 Content (15.0-23.0) %vol ABG Base Excess mm/L ABG Hemoglobin (13.5-18.0) g/dL ABG Oxyhemoglobin % ABG Carboxyhemoglobin (0.0-1.6) % ABG Methemoglobin % Jun Test O2 Delivery Device Oxygen Flow Rate L Sodium (140-148) mmol/L Potassium (3.6-5.2) mmol/L Chloride (100-108) mmol/L Carbon Dioxide (21-32) mmol/L Anion Gap (5.0-14.0) mmol/L BUN (7-18) mg/dL Creatinine (0.8-1.3) mg/dL Est Cr Clr Drug Dosing Estimated GFR (MDRD) (>60) Glucose (74-106) mg/dL Lactic Acid 7.3 H (0.4-2.0) mmol/L Calcium (8.5-10.1) mg/dL Total Bilirubin (0.2-1.0) mg/dL AST (15-37) U/L ALT (12-78) U/L Alkaline Phosphatase (46-116) U/L C-Reactive Protein 0.09 (0.0-0.3) mg/dL Total Protein (6.4-8.2) g/dL Albumin (3.4-5.0) g/dL Globulin (2.3-3.5) g/dL Albumin/Globulin Ratio (1.2-2.2) Lipase (73-393) U/L Procalcitonin < 0.05 ng/mL Urine Color (YELLOW) Urine Appearance (CLEAR) Urine pH (5.0-8.0) Ur Specific [place] (1.008-1.030) Urine Protein (NEGATIVE) mg/dL Urine Glucose (UA) (NEGATIVE) mg/dL Urine Ketones (NEGATIVE) mg/dL Urine Occult Blood (NEGATIVE) Urine Nitrite (NEGATIVE) Urine Bilirubin (NEGATIVE) Urine Urobilinogen (0.2-1.0) EU/dL Ur Leukocyte Esterase (NEGATIVE) Urine RBC (0-5) Urine WBC (0-5) Ur Epithelial Cells Amorphous Sediment Urine Bacteria Urine Mucus Ethyl Alcohol mg/dL 01/21/20 01/21/20 Range/Units 13:30 14:04 WBC (4.5-11.0) K/uL RBC (4.30-5.90) M/uL Hgb (12.0-15.0) g/dL Hct (40.0-54.0) % MCV (80-98) fL MCH (27-31) pg MCHC (32-36) % Plt Count (150-400) K/uL Neut % (Auto) (36-66) % Lymph % (Auto) (24-44) % Mower % (Auto) (2-6) % Eos % (Auto) (2-4) % Baso % (Auto) (0-1) % Puncture Site Rt radial ABG pH 7.548 H (7.350-7.450) ABG pCO2 14.2 L* (35.0-42.0) mmHg ABG pO2 120.0 H (75.0-100.0) mmHg ABG HCO3 12.3 L (22.0-26.0) mmol/L ABG Total CO2 10.2 L (23.0-27.0) mmol/L ABG O2 Saturation 98.5 H (95.0-98.0) % ABG O2 Content 21.5 (15.0-23.0) %vol ABG Base Excess -7.0 mm/L ABG Hemoglobin 15.8 (13.5-18.0) g/dL ABG Oxyhemoglobin 96.3 % ABG Carboxyhemoglobin 1.1 (0.0-1.6) % ABG Methemoglobin 1.1 % Jun Test Passed O2 Delivery Device Nasal cannula Oxygen Flow Rate L Sodium (140-148) mmol/L Potassium (3.6-5.2) mmol/L Chloride (100-108) mmol/L Carbon Dioxide (21-32) mmol/L Anion Gap (5.0-14.0) mmol/L BUN (7-18) mg/dL Creatinine (0.8-1.3) mg/dL Est Cr Clr Drug Dosing Estimated GFR (MDRD) (>60) Glucose (74-106) mg/dL Lactic Acid (0.4-2.0) mmol/L Calcium (8.5-10.1) mg/dL Total Bilirubin (0.2-1.0) mg/dL AST (15-37) U/L ALT (12-78) U/L Alkaline Phosphatase (46-116) U/L C-Reactive Protein (0.0-0.3) mg/dL Total Protein (6.4-8.2) g/dL Albumin (3.4-5.0) g/dL Globulin (2.3-3.5) g/dL Albumin/Globulin Ratio (1.2-2.2) Lipase (73-393) U/L Procalcitonin ng/mL Urine Color Yellow (YELLOW) Urine Appearance Slightly cloudy A (CLEAR) Urine pH 5.5 (5.0-8.0) Ur Specific [place] >= 1.030 (1.008-1.030) Urine Protein 100 H (NEGATIVE) mg/dL Urine Glucose (UA) Negative (NEGATIVE) mg/dL Urine Ketones 40 H (NEGATIVE) mg/dL Urine Occult Blood Trace-lysed H (NEGATIVE) Urine Nitrite Negative (NEGATIVE) Urine Bilirubin Negative (NEGATIVE) Urine Urobilinogen 0.2 (0.2-1.0) EU/dL Ur Leukocyte Esterase Negative (NEGATIVE) Urine RBC 0-5 (0-5) Urine WBC 0-5 (0-5) Ur Epithelial Cells Not seen Amorphous Sediment Not seen Urine Bacteria Not seen Urine Mucus Moderate Ethyl Alcohol mg/dL Meds: Medications Generic Name Dose Route Start Last Admin Trade Name Freq PRN Reason Stop Dose Admin Acetaminophen 650 mg 01/21/20 16:41 Tylenol PO Q4H PRN Pain (Mild 1-3)/fever Amphetamine/Dextroamphetamine 20 mg 01/22/20 09:00 Adderall PO DAILY CAREY Aspirin 81 mg 01/22/20 09:00 Halfprin PO DAILY C[facility] Fluoxetine HCl 40 mg 01/22/20 09:00 Prozac PO DAILY C[facility] Folic Acid 1 mg 01/21/20 17:00 01/21/20 17:22 Folic Acid PO 1 mg DAILY CAREY Administration Hydromorphone HCl 0.5 mg 01/21/20 16:41 01/21/20 17:03 Dilaudid IVPUSH 0.5 mg Q2H PRN Administration Pain Lactated Ringer's 500 mls @ 500 mls/hr 01/21/20 16:41 01/21/20 17:39 Ringers, Lactated IV 01/21/20 19:42 500 mls/hr .BOLUS CAREY Administration Lactated Ringer's 1,000 mls @ 125 mls/hr 01/21/20 18:15 Ringers, Lactated IV ASDIRECTED [facility] Meropenem 1 gm/ Sodium 100 mls @ 200 mls/hr 01/22/20 00:05 Chloride IV Q8H C[facility] Metronidazole 500 mg/ Premix 100 mls @ 100 mls/hr 01/22/20 10:00 IV Q8H C[facility] Lorazepam 0 mg 01/21/20 16:41 Ativan IV ASDIRECTED CAREY Protocol Lorazepam 0 mg 01/21/20 16:41 01/21/20 17:02 Ativan PO 2 mg ASDIRECTED CAREY Administration Protocol Metoprolol Tartrate 25 mg 01/22/20 09:00 Lopressor PO DAILY CARE[facility] Ondansetron HCl 4 mg 01/21/20 16:41 Zofran IV Q4H PRN Nausea/Vomiting Pantoprazole Sodium 40 mg 01/21/20 17:00 01/21/20 17:22 Protonix Iv IV 40 mg Q12H CAREY Administration Polyethylene Glycol 17 gm 01/21/20 16:41 Miralax PO DAILY PRN Constipation Prazosin HCl 5 mg 01/21/20 21:00 Minpress PO BEDTIME CAREY Quetiapine Fumarate 25 mg 01/21/20 21:00 Seroquel PO BEDTIME CAREY Sodium Chloride 10 ml 01/21/20 16:41 Saline Flush FLUSH ASDIRECTED PRN Keep Vein Open Tamsulosin HCl 0.4 mg 01/22/20 09:00 Flomax PO DAILY [facility] Thiamine HCl 100 mg 01/21/20 17:00 01/21/20 17:22 Vitamin B-1 PO 100 mg DAILY CAREY Administration Trazodone HCl 50 mg 01/21/20 21:00 Trazodone PO BEDTIME CAREY Discontinued Medications Generic Name Dose Route Start Last Admin Trade Name Freq PRN Reason Stop Dose Admin Multivitamins/Minerals 10 ml/ 1,017.2 mls @ 500 mls/hr 01/21/20 12:45 12:45 Thiamine HCl 100 mg/ Folic IV 01/21/20 14:47 500 mls/hr Acid 1 mg/ Magnesium Sulfate 3 ASDIRECTED ONE Administration gm/ Sodium Chloride Sodium Chloride 1,000 mls @ 1,000 mls/hr 01/21/20 14:30 01/21/20 14:21 Normal Saline IV 1,000 mls/hr ASDIRECTED CAREY Administration Meropenem 1 gm/ Sodium 100 mls @ 200 mls/hr 01/21/20 15:30 01/21/20 15:59 Chloride IV 01/21/20 15:59 200 mls/hr ONETIME ONE Administration Iopamidol 123 ml 01/21/20 15:30 01/21/20 15:49 Isovue-300 (61%) IV 123 ml . DIRECTED CAREY Administration Ketorolac Tromethamine 30 mg 01/21/20 12:51 01/21/20 12:58 Toradol IVPUSH 01/21/20 12:52 30 mg ONETIME ONE Administration Lorazepam 1 mg 01/21/20 12:15 01/21/20 12:27 Ativan IVPUSH 01/21/20 12:16 1 mg ONETIME ONE Administration Ondansetron HCl 4 mg 01/21/20 12:15 01/21/20 12:27 Zofran IVPUSH 01/21/20 12:16 4 mg ONETIME ONE Administration Sodium Chloride 10 ml 01/21/20 15:28 01/21/20 15:50 Saline Flush FLUSH 01/21/20 15:29 10 ml ONETIME ONE Administration - Re-Assessments/Exams Free Text/Narrative Re-Assessment/Exam: 01/21/20 13:47 An IV was started, the patient will be given 1 L banana bag, 1 mg of IV Ativan. CBC CMP and EtOH were obtained. If the lipase is elevated he may need a CT scan and transfer as one is not available today. Lipase is normal, LFTs are elevated but they were elevated 5 days ago when he was here. EtOH is 0.251. Discussed his case with Dr. Hadley, he agreed to see the patient and assess for possible admission and treatment here in [place]. Departure - Departure Time of Disposition: 17:00 Disposition: Admitted As Inpatient 68 Clinical Impression: Respiratory alkalosis Alcohol intoxication Qualifiers: Complication of substance-induced condition: uncomplicated Qualified Code(s): F10.920 - Alcohol use, unspecified with intoxication, uncomplicated Abdominal pain Qualifiers: Abdominal location: left upper quadrant Qualified Code(s): R10.12 - Left upper quadrant pain - Discharge Information Sepsis Event Note (ED) - Focused Exam Vital Signs: Vital Signs Temp Pulse Resp BP Pulse Ox 01/21/20 15:46 98 129/84 01/21/20 15:00 107 H 118/75 01/21/20 14:24 99.2 F 100 24 H 160/83 H 94 L - My Orders Last 24 Hours: My Active Orders 01/21/20 14:18 Blood Culture x2 Reflex Set [OM.PC] Urgent 01/21/20 14:30 CULTURE BLOOD [BC] Urgent 01/21/20 14:40 CULTURE BLOOD [BC] Urgent 01/21/20 18:00 LACTIC ACID [CHEM] Stat - Assessment/Plan Last 24 Hours: My Active Orders 01/21/20 14:18 Blood Culture x2 Reflex Set [OM.PC] Urgent 01/21/20 14:30 CULTURE BLOOD [BC] Urgent 01/21/20 14:40 CULTURE BLOOD [BC] Urgent 01/21/20 18:00 LACTIC ACID [CHEM] Stat
[2020-01-21] MEDS ORDERED: MVI, Adult with Vitamin K 10 ML, Thiamine 100 MG, Folic Acid 1 MG, Magnesium Sulfate 3 ... IV ONE ×5 (12:45)
[2020-01-21] MEDS ORDERED: Ketorolac 30 MG/ML SDV IVPUSH ONE (12:51)
[2020-01-21] MEDS ORDERED: Sodium Chloride 0.9% 1,000 ML IV SCH (14:30)
--- NOTE | 2020-01-21 15:27 | PCM.HP.2 ---
H&P History of Present Illness - General Date of Service: 01/21/20 Admit Problem/Dx: Admission Diagnosis/Problem Admission Diagnosis/Problem Abdominal pain Source of Information: Patient, Old Records, Provider, RN Notes Reviewed History Limitations: Reports: No Limitations - History of Present Illness Initial Comments - Free Text/Narative: Mr. Luna is a 49-year-old gentleman who was admitted through the emergency department with alcohol intoxication and abdominal pain secondary to colitis and gastritis. Michael has a longstanding history of alcohol abuse as well as anxiety. He has been hospitalized recently at this facility for alcohol intoxication and withdrawal. He was discharged from detox recently, went home and started drinking shortly thereafter. He admits that he has been drinking heavily and has had several recent falls related to his alcohol abuse. This morning developed relatively abrupt onset of nausea vomiting and epigastric/ left upper quadrant abdominal pain. He has noted no hematemesis melena or hematochezia. Laboratory studies showed evidence of a elevated anion gap metabolic acidosis. Anion gap was elevated at 26 with a carbon dioxide level of 17 and a lactic acid level of over 7. White blood cell count was abated at 14,000, CRP and procalcitonin were found to be within normal range. Lipase level was also within normal range. - Related Data Allergies/Adverse Reactions: Allergies Allergy/AdvReac Type Severity Reaction Status Date / Time Penicillins Allergy Hives Verified 01/14/20 09:14 erythromycin base AdvReac Nausea Verified 01/14/20 09:23 Home Medications: Home Meds Metoprolol Tartrate [Lopressor] 25 mg PO DAILY 03/29/14 [History] Omeprazole 20 mg PO DAILY 11/05/16 [History] Prazosin HCl [Prazosin] 5 mg PO BEDTIME 11/05/16 [History] traZODone HCl [Trazodone HCl] 50 mg PO BEDTIME 11/05/16 [History] Aspirin [Low Dose Aspirin EC] 81 mg PO DAILY 01/07/20 [History] Dextroamphetamine/Amphetamine [Adderall 20 mg Tablet] 1 tab PO DAILY 01/07/20 [ History] Disulfiram 250 mg PO BID 01/07/20 [History] FLUoxetine HCl [Prozac] 40 mg PO DAILY 01/07/20 [History] Naltrexone 50 mg PO DAILY 01/07/20 [History] QUEtiapine [SEROquel] 25 mg PO BEDTIME 01/07/20 [History] Tamsulosin HCl [Flomax] 0.4 mg PO DAILY 01/07/20 [History] Past Medical History HEENT History: Reports: Impaired Vision Cardiovascular History: Reports: Arrhythmia, CAD, Hypertension, [place], Other (See Below) Other Cardiovascular History: svt Respiratory History: Reports: Bronchitis, Recurrent Gastrointestinal History: Reports: Diverticulosis Genitourinary History: Reports: Prostate Disorder, Renal Calculus Musculoskeletal History: Reports: Fracture Other Musculoskeletal History: dislocated shoulder Neurological History: Reports: Concussion Psychiatric History: Reports: Addiction, Anxiety, Depression, Panic Attack, Psych Hospitalization(s), PTSD, Suicide Attempt Other Psychiatric History: Major depressive disorder Endocrine/Metabolic History: Reports: Diabetes, Type II, Other (See Below) Other Endocrine/Metabolic History: type II diabetes history Hematologic History: Reports: B12 Deficiency, Folic Acid Immunologic History: Reports: Other (See Below) Other Immunologic History: anaplasmosis, lyme disease Dermatologic History: Reports: Eczema - Infectious Disease History Infectious Disease History: Reports: Chicken Pox - Past Surgical History GI Surgical History: Reports: Bariatric Procedure, Cholecystectomy, Colonoscopy Musculoskeletal Surgical History: Reports: Arthroscopic Knee Social & Family History - Caffeine Use Caffeine Use: Reports: Coffee - Recreational Drug Use Recreational Drug Use: No - Living Situation & Occupation Living situation: Reports: with Significant Other (reports is getting divorce from in [place], living with his son.) Occupation: Employed H&P Review of Systems - Review of Systems: Review Of Systems: See Below General: Reports: No Symptoms, Malaise, Weakness, Fatigue. Denies: Fever, Chills HEENT: Reports: No Symptoms Pulmonary: Reports: No Symptoms Cardiovascular: Reports: No Symptoms Gastrointestinal: Reports: Abdominal Pain, Nausea. Denies: Constipation, Diarrhea, Difficulty Swallowing, Hematemesis, Hematochezia, Melena, Vomiting Genitourinary: Reports: No Symptoms Musculoskeletal: Reports: No Symptoms Skin: Reports: No Symptoms Psychiatric: Reports: No Symptoms Neurological: Reports: No Symptoms Hematologic/Lymphatic: Reports: No Symptoms Immunologic: Reports: No Symptoms Exam - Exam Exam: See Below - Vital Signs Vital Signs: Last Vital Signs Temp 99.2 F 01/21/20 14:24 Pulse 100 01/21/20 14:24 Resp 24 H 01/21/20 14:24 BP 160/83 H 01/21/20 14:24 Pulse Ox 94 L 01/21/20 14:24 Weight: 180 lb - Exam Quality Assessment: DVT Prophylaxis General: Alert, Oriented, Cooperative, Moderate Distress HEENT: Conjunctiva Clear, Hearing Intact, Normal Nasal Septum, Posterior Pharynx Clear, Pupils Equal. No: Mucosa Moist & [place] Neck: Supple, Trachea Midline, +2 Carotid Pulse wo Bruit Lungs: Clear to Auscultation, Normal Respiratory Effort Cardiovascular: Regular Rate, Regular Rhythm, Normal S1, Normal S2. No: Systolic Murmur, Diastolic Murmur GI/Abdominal Exam: Soft, Non-Tender, No Organomegaly, No Distention Back Exam: Normal Inspection, Full Range of Motion Extremities: Non-Tender, No Pedal Edema Skin: Warm, Dry, Intact Neurological: Cranial Nerves Intact, Strength Equal Bilateral, Normal Speech, Normal Tone, Sensation Intact. No: Focal Deficit Neuro Extensive - Mental Status: Alert, Oriented x3, Normal Mood/Affect, Normal Cognition, Memory Intact - Patient Data Lab Results Last 24 hrs: Laboratory Results - last 24 hr 01/21/20 01/21/20 01/21/20 Range/Units 12:15 12:28 12:28 WBC 14.2 H (4.5-11.0) K/uL RBC 5.26 (4.30-5.90) M/uL Hgb 15.3 H (12.0-15.0) g/dL Hct 45.0 (40.0-54.0) % MCV 86 (80-98) fL MCH 29 (27-31) pg MCHC 34 (32-36) % Plt Count 344 (150-400) K/uL Neut % (Auto) 84 H (36-66) % Lymph % (Auto) 11 L (24-44) % [place] % (Auto) 4 (2-6) % Eos % (Auto) 0 L (2-4) % Baso % (Auto) 0 (0-1) % Puncture Site ABG pH (7.350-7.450) ABG pCO2 (35.0-42.0) mmHg ABG pO2 (75.0-100.0) mmHg ABG HCO3 (22.0-26.0) mmol/L ABG Total CO2 (23.0-27.0) mmol/L ABG O2 Saturation (95.0-98.0) % ABG O2 Content (15.0-23.0) %vol ABG Base Excess mm/L ABG Hemoglobin (13.5-18.0) g/dL ABG Oxyhemoglobin % ABG Carboxyhemoglobin (0.0-1.6) % ABG Methemoglobin % Jun Test O2 Delivery Device Oxygen Flow Rate L Sodium 140 (140-148) mmol/L Potassium 4.0 (3.6-5.2) mmol/L Chloride 101 (100-108) mmol/L Carbon Dioxide 17 L (21-32) mmol/L Anion Gap 26.0 H (5.0-14.0) mmol/L BUN 13 (7-18) mg/dL Creatinine 0.8 (0.8-1.3) mg/dL Est Cr Clr Drug Dosing TNP Estimated GFR (MDRD) > 60 (>60) Glucose 174 H (74-106) mg/dL Lactic Acid (0.4-2.0) mmol/L Calcium 7.7 L (8.5-10.1) mg/dL Total Bilirubin 0.8 D (0.2-1.0) mg/dL AST 75 H (15-37) U/L ALT 176 H (12-78) U/L Alkaline Phosphatase 185 H (46-116) U/L C-Reactive Protein (0.0-0.3) mg/dL Total Protein 6.3 L (6.4-8.2) g/dL Albumin 3.7 (3.4-5.0) g/dL Globulin 2.6 (2.3-3.5) g/dL Albumin/Globulin Ratio 1.4 (1.2-2.2) Lipase 173 (73-393) U/L Procalcitonin ng/mL Urine Color (YELLOW) Urine Appearance (CLEAR) Urine pH (5.0-8.0) Ur Specific [place] (1.008-1.030) Urine Protein (NEGATIVE) mg/dL Urine Glucose (UA) (NEGATIVE) mg/dL Urine Ketones (NEGATIVE) mg/dL Urine Occult Blood (NEGATIVE) Urine Nitrite (NEGATIVE) Urine Bilirubin (NEGATIVE) Urine Urobilinogen (0.2-1.0) EU/dL Ur Leukocyte Esterase (NEGATIVE) Urine RBC (0-5) Urine WBC (0-5) Ur Epithelial Cells Amorphous Sediment Urine Bacteria Urine Mucus Ethyl Alcohol 251 mg/dL 01/21/20 01/21/20 01/21/20 Range/Units 13:29 13:30 13:30 WBC (4.5-11.0) K/uL RBC (4.30-5.90) M/uL Hgb (12.0-15.0) g/dL Hct (40.0-54.0) % MCV (80-98) fL MCH (27-31) pg MCHC (32-36) % Plt Count (150-400) K/uL Neut % (Auto) (36-66) % Lymph % (Auto) (24-44) % [place] % (Auto) (2-6) % Eos % (Auto) (2-4) % Baso % (Auto) (0-1) % Puncture Site ABG pH (7.350-7.450) ABG pCO2 (35.0-42.0) mmHg ABG pO2 (75.0-100.0) mmHg ABG HCO3 (22.0-26.0) mmol/L ABG Total CO2 (23.0-27.0) mmol/L ABG O2 Saturation (95.0-98.0) % ABG O2 Content (15.0-23.0) %vol ABG Base Excess mm/L ABG Hemoglobin (13.5-18.0) g/dL ABG Oxyhemoglobin % ABG Carboxyhemoglobin (0.0-1.6) % ABG Methemoglobin % Jun Test O2 Delivery Device Oxygen Flow Rate L Sodium (140-148) mmol/L Potassium (3.6-5.2) mmol/L Chloride (100-108) mmol/L Carbon Dioxide (21-32) mmol/L Anion Gap (5.0-14.0) mmol/L BUN (7-18) mg/dL Creatinine (0.8-1.3) mg/dL Est Cr Clr Drug Dosing Estimated GFR (MDRD) (>60) Glucose (74-106) mg/dL Lactic Acid 7.3 H (0.4-2.0) mmol/L Calcium (8.5-10.1) mg/dL Total Bilirubin (0.2-1.0) mg/dL AST (15-37) U/L ALT (12-78) U/L Alkaline Phosphatase (46-116) U/L C-Reactive Protein 0.09 (0.0-0.3) mg/dL Total Protein (6.4-8.2) g/dL Albumin (3.4-5.0) g/dL Globulin (2.3-3.5) g/dL Albumin/Globulin Ratio (1.2-2.2) Lipase (73-393) U/L Procalcitonin < 0.05 ng/mL Urine Color (YELLOW) Urine Appearance (CLEAR) Urine pH (5.0-8.0) Ur Specific [place] (1.008-1.030) Urine Protein (NEGATIVE) mg/dL Urine Glucose (UA) (NEGATIVE) mg/dL Urine Ketones (NEGATIVE) mg/dL Urine Occult Blood (NEGATIVE) Urine Nitrite (NEGATIVE) Urine Bilirubin (NEGATIVE) Urine Urobilinogen (0.2-1.0) EU/dL Ur Leukocyte Esterase (NEGATIVE) Urine RBC (0-5) Urine WBC (0-5) Ur Epithelial Cells Amorphous Sediment Urine Bacteria Urine Mucus Ethyl Alcohol mg/dL 01/21/20 01/21/20 Range/Units 13:30 14:04 WBC (4.5-11.0) K/uL RBC (4.30-5.90) M/uL Hgb (12.0-15.0) g/dL Hct (40.0-54.0) % MCV (80-98) fL MCH (27-31) pg MCHC (32-36) % Plt Count (150-400) K/uL Neut % (Auto) (36-66) % Lymph % (Auto) (24-44) % [place] % (Auto) (2-6) % Eos % (Auto) (2-4) % Baso % (Auto) (0-1) % Puncture Site Rt radial ABG pH 7.548 H (7.350-7.450) ABG pCO2 14.2 L* (35.0-42.0) mmHg ABG pO2 120.0 H (75.0-100.0) mmHg ABG HCO3 12.3 L (22.0-26.0) mmol/L ABG Total CO2 10.2 L (23.0-27.0) mmol/L ABG O2 Saturation 98.5 H (95.0-98.0) % ABG O2 Content 21.5 (15.0-23.0) %vol ABG Base Excess -7.0 mm/L ABG Hemoglobin 15.8 (13.5-18.0) g/dL ABG Oxyhemoglobin 96.3 % ABG Carboxyhemoglobin 1.1 (0.0-1.6) % ABG Methemoglobin 1.1 % Jun Test Passed O2 Delivery Device Nasal cannula Oxygen Flow Rate L Sodium (140-148) mmol/L Potassium (3.6-5.2) mmol/L Chloride (100-108) mmol/L Carbon Dioxide (21-32) mmol/L Anion Gap (5.0-14.0) mmol/L BUN (7-18) mg/dL Creatinine (0.8-1.3) mg/dL Est Cr Clr Drug Dosing Estimated GFR (MDRD) (>60) Glucose (74-106) mg/dL Lactic Acid (0.4-2.0) mmol/L Calcium (8.5-10.1) mg/dL Total Bilirubin (0.2-1.0) mg/dL AST (15-37) U/L ALT (12-78) U/L Alkaline Phosphatase (46-116) U/L C-Reactive Protein (0.0-0.3) mg/dL Total Protein (6.4-8.2) g/dL Albumin (3.4-5.0) g/dL Globulin (2.3-3.5) g/dL Albumin/Globulin Ratio (1.2-2.2) Lipase (73-393) U/L Procalcitonin ng/mL Urine Color Yellow (YELLOW) Urine Appearance Slightly cloudy A (CLEAR) Urine pH 5.5 (5.0-8.0) Ur Specific [place] >= 1.030 (1.008-1.030) Urine Protein 100 H (NEGATIVE) mg/dL Urine Glucose (UA) Negative (NEGATIVE) mg/dL Urine Ketones 40 H (NEGATIVE) mg/dL Urine Occult Blood Trace-lysed H (NEGATIVE) Urine Nitrite Negative (NEGATIVE) Urine Bilirubin Negative (NEGATIVE) Urine Urobilinogen 0.2 (0.2-1.0) EU/dL Ur Leukocyte Esterase Negative (NEGATIVE) Urine RBC 0-5 (0-5) Urine WBC 0-5 (0-5) Ur Epithelial Cells Not seen Amorphous Sediment Not seen Urine Bacteria Not seen Urine Mucus Moderate Ethyl Alcohol mg/dL Result Diagrams: 01/21/20 12:15 01/21/20 12:28 Sepsis Event Note - Evaluation Sepsis Screening Result: Possible Sepsis Risk - Focused Exam Vital Signs: Vital Signs Temp Pulse Resp BP Pulse Ox 01/21/20 14:24 99.2 F 100 24 H 160/83 H 94 L Date Exam was Performed: 01/21/20 Time Exam was Performed: 17:12 *Q Meaningful Use (ADM) - VTE Risk Assess *Q Each Risk Factor Represents 1 Point: Age 41 - 59 years, Obesity ( BMI > 25 kg/m2 ) Total Score 1 Point Risk Factors: 2 Each Risk Factor Represents 2 Points: None Total Score 2 Point Risk Factors: 0 Each Risk Factor Represents 3 Points: None Total Score 3 Point Risk Factors: 0 Each Risk Factor Represents 5 Points: None Total Score 5 Point Risk Factors: 0 Venous Thromboembolism Risk Factor Score *Q: 2 Problem List Initiated/Reviewed/Updated: Yes Orders Last 24hrs: Active Orders 24 hr Category Date Time Status Patient Status Manage Transfer [TRANSFER] Routine ADT 01/21/20 15:11 Active Abdomen Pelvis w Cont [CT] Stat Exams 01/21/20 14:29 Ordered CULTURE BLOOD [BC] Urgent Lab 01/21/20 14:30 Received CULTURE BLOOD [BC] Urgent Lab 01/21/20 14:40 Received LACTIC ACID [CHEM] Stat Lab 01/21/20 18:00 Ordered Meropenem [Merrem] 1 gm Med 01/21/20 15:30 Active Sodium Chloride 0.9% [Normal Saline] 100 ml IV ONETIME Sodium Chloride 0.9% [Normal Saline] 1,000 ml Med 01/21/20 14:30 Active IV ASDIRECTED Blood Culture x2 Reflex Set [OM.PC] Urgent Oth 01/21/20 14:18 Ordered Resuscitation Status Routine Resus Stat 01/21/20 15:13 Ordered Medication Orders Sodium Chloride (Normal Saline) 1,000 mls @ 1,000 mls/hr IV ASDIRECTED CAREY Last Admin: 01/21/20 14:21 Dose: 1,000 mls/hr Meropenem 1 gm/ Sodium (Chloride) 100 mls @ 200 mls/hr IV ONETIME ONE Stop: 01/21/20 15:59 Assessment/Plan Comment:: ASSESSMENT AND PLAN COLITIS AND PROBABLE GASTRITIS-likely cause of current abdominal pain, no other obvious abnormality identified on CT scan -IV fluids for hydration -N.p.o. -Nausea and pain medication as needed -IV Protonix twice daily -IV meropenem and Flagyl -Blood cultures pending ALCOHOL INTOXICATION AND ABUSE -Monitor closely for alcohol withdrawal -Banana bag given in the emergency department -Alcohol withdrawal protocol MAINTENANCE ISSUES -DVT prophylaxis; SCUDs -GI prophylaxis; Protonix as above -[place] catheter; not indicated -Nutrition; n.p.o. -Nicotine dependence; not required CODE STATUS-FULL CODE ADMISSION STATUS-patient will be admitted to inpatient status, expect at least a 2 night hospital stay for evaluation and management of problems as outlined above. At the time of this admission I do not reasonably expected evaluation and management of this problem will require more than a 96 hour hospital stay. DISPOSITION-anticipate discharge to home after the hospital stay. PRIMARY CARE PROVIDER- - Mortality Measure Prognosis:: Good
[2020-01-21] MEDS ORDERED: Sodium Chloride 0.9% 10 ML Syringe FLUSH ONE (15:28)
[2020-01-21] MEDS ORDERED: Meropenem 1 GM in Sodium Chloride 0.9% 100 ML IV ONE (15:30)
[2020-01-21] MEDS ORDERED: Iopamidol 612 MG/ML 150 ML Bottle IV SCH (15:30)
--- NOTE | 2020-01-21 16:16 | CT ---
Abdomen Pelvis w Cont CLINICAL HISTORY: Elevated lactic acid COMPARISON: 2013. TECHNIQUE: Transverse scans were obtained from the base of the lungs to the pubic symphysis following oral contrast and IV infusion of contrast.Auto dosage reduction and iterative reconstructiontechniques employed. FINDINGS: The lung bases are clear. The liver shows significant diffuse fatty infiltration. The gallbladder has been removed. Patient has had previous bariatric surgery. The spleen has a normal size and shape. The pancreas shows no mass or inflammatory change. The adrenal glands appear normal bilaterally . The kidneys show no mass, stones or hydronephrosis. The ureters have a normal course and contour. The aorta shows atheromatous plaque without aneurysm. There is no suspicious retroperitoneal adenopathy. There is some generalized thickening of the colon. The small intestinal configuration is nonacute IMPRESSION: There is mild generalized thickening of the colon suggesting of pancreatitis. Previous bariatric surgery Previous cholecystectomy Moderate diffuse fatty infiltration of the liver
[2020-01-21] MEDS ORDERED: Sodium Chloride 0.9% 10 ML Syringe FLUSH PRN (16:41)
[2020-01-21] MEDS ORDERED: LORazepam 2 MG/ML SDV IV SCH (16:41)
[2020-01-21] MEDS ORDERED: Polyethylene Glycol 3350 Powder 17 GM Packet PO PRN (16:41)
[2020-01-21] MEDS ORDERED: Lactated Ringers 500 ML IV SCH (16:41)
[2020-01-21] MEDS ORDERED: Ondansetron 4 MG/2 ML SDV IV PRN (16:41)
[2020-01-21] MEDS ORDERED: Acetaminophen 325 MG Tab PO PRN (16:41)
[2020-01-21] MEDS: LORazepam 1 MG Tab PO SCH ×3 (17:02→21:42)
[2020-01-21] MEDS: HYDROmorphone 0.5 MG/0.5 ML Syringe IVPUSH PRN ×2 (17:03→19:52)
[2020-01-21] MEDS: Folic Acid 1 MG Tab PO SCH (17:22)
[2020-01-21] MEDS: Thiamine 100 MG Tab PO SCH (17:22)
[2020-01-21] MEDS: Pantoprazole 40 MG Vial IV SCH (17:22)
[2020-01-21] MEDS: Lactated Ringers 1,000 ML IV SCH (18:42)
[2020-01-21] MEDS: Prazosin 1 MG Cap PO SCH (21:41)
[2020-01-21] MEDS: QUEtiapine 25 MG Tab PO SCH (21:42)
[2020-01-21] MEDS: traZODone 50 MG Tab PO SCH (21:42)
[2020-01-22] MEDS: Meropenem 1 GM in Sodium Chloride 0.9% 100 ML IV SCH ×4 (00:01→23:32)
[2020-01-22] MEDS: LORazepam 1 MG Tab PO SCH ×6 (00:11→21:39)
[2020-01-22] MEDS: Lactated Ringers 1,000 ML IV SCH (03:02)
[2020-01-22] MEDS: Pantoprazole 40 MG Vial IV SCH (05:13)
[2020-01-22] MEDS ORDERED: AMPHETAMINE PO SCH (09:00)
[2020-01-22] MEDS ORDERED: DEXTROAMPHETAMINE PO SCH (09:00)
[2020-01-22] MEDS ORDERED: [UNRECOGNIZED DRUG - OTHER] PO SCH (09:00)
--- NOTE | 2020-01-22 09:11 | PCM.PN ---
- General Info Date of Service: 01/22/20 Subjective Update: Mr. Luna has improved from admission with less abdominal pain and no further nausea or vomiting. He has shown mild to moderate evidence of alcohol withdrawal. Lactic acid level has normalized and he has remained afebrile. Functional Status: Reports: Ambulating, Urinating - Review of Systems General: Reports: Weakness. Denies: Fever, Chills Pulmonary: Reports: No Symptoms Cardiovascular: Reports: No Symptoms Gastrointestinal: Reports: Abdominal Pain. Denies: Constipation, Diarrhea, Difficulty Swallowing, Nausea, Vomiting - Patient Data Vitals - Most Recent: Last Vital Signs Temp 97.6 F 01/22/20 08:00 Pulse 66 01/22/20 08:00 Resp 18 01/22/20 08:00 BP 144/92 H 01/22/20 08:00 Pulse Ox 91 L 01/22/20 08:00 Weight - Most Recent: 180 lb I&O - Last 24 Hours: Intake & Output 01/21/20 01/22/20 01/22/20 22:59 06:59 14:59 Intake Total 2518 Output Total 400 Balance 2118 Lab Results Last 24 Hours: Laboratory Results - last 24 hr 01/21/20 01/21/20 01/21/20 Range/Units 12:15 12:28 12:28 WBC 14.2 H (4.5-11.0) K/uL RBC 5.26 (4.30-5.90) M/uL Hgb 15.3 H (12.0-15.0) g/dL Hct 45.0 (40.0-54.0) % MCV 86 (80-98) fL MCH 29 (27-31) pg MCHC 34 (32-36) % Plt Count 344 (150-400) K/uL Neut % (Auto) 84 H (36-66) % Lymph % (Auto) 11 L (24-44) % [place] % (Auto) 4 (2-6) % Eos % (Auto) 0 L (2-4) % Baso % (Auto) 0 (0-1) % PT (9.5-12.0) sec INR (0.80-1.20) Puncture Site ABG pH (7.350-7.450) ABG pCO2 (35.0-42.0) mmHg ABG pO2 (75.0-100.0) mmHg ABG HCO3 (22.0-26.0) mmol/L ABG Total CO2 (23.0-27.0) mmol/L ABG O2 Saturation (95.0-98.0) % ABG O2 Content (15.0-23.0) %vol ABG Base Excess mm/L ABG Hemoglobin (13.5-18.0) g/dL ABG Oxyhemoglobin % ABG Carboxyhemoglobin (0.0-1.6) % ABG Methemoglobin % Jun Test O2 Delivery Device Oxygen Flow Rate L Sodium 140 (140-148) mmol/L Potassium 4.0 (3.6-5.2) mmol/L Chloride 101 (100-108) mmol/L Carbon Dioxide 17 L (21-32) mmol/L Anion Gap 26.0 H (5.0-14.0) mmol/L BUN 13 (7-18) mg/dL Creatinine 0.8 (0.8-1.3) mg/dL Est Cr Clr Drug Dosing TNP Estimated GFR (MDRD) > 60 (>60) Glucose 174 H (74-106) mg/dL Lactic Acid (0.4-2.0) mmol/L Calcium 7.7 L (8.5-10.1) mg/dL Total Bilirubin 0.8 D (0.2-1.0) mg/dL AST 75 H (15-37) U/L ALT 176 H (12-78) U/L Alkaline Phosphatase 185 H (46-116) U/L C-Reactive Protein (0.0-0.3) mg/dL Total Protein 6.3 L (6.4-8.2) g/dL Albumin 3.7 (3.4-5.0) g/dL Globulin 2.6 (2.3-3.5) g/dL Albumin/Globulin Ratio 1.4 (1.2-2.2) Lipase 173 (73-393) U/L Procalcitonin ng/mL Urine Color (YELLOW) Urine Appearance (CLEAR) Urine pH (5.0-8.0) Ur Specific [place] (1.008-1.030) Urine Protein (NEGATIVE) mg/dL Urine Glucose (UA) (NEGATIVE) mg/dL Urine Ketones (NEGATIVE) mg/dL Urine Occult Blood (NEGATIVE) Urine Nitrite (NEGATIVE) Urine Bilirubin (NEGATIVE) Urine Urobilinogen (0.2-1.0) EU/dL Ur Leukocyte Esterase (NEGATIVE) Urine RBC (0-5) Urine WBC (0-5) Ur Epithelial Cells Amorphous Sediment Urine Bacteria Urine Mucus Ethyl Alcohol 251 mg/dL 01/21/20 01/21/20 01/21/20 Range/Units 13:29 13:30 13:30 WBC (4.5-11.0) K/uL RBC (4.30-5.90) M/uL Hgb (12.0-15.0) g/dL Hct (40.0-54.0) % MCV (80-98) fL MCH (27-31) pg MCHC (32-36) % Plt Count (150-400) K/uL Neut % (Auto) (36-66) % Lymph % (Auto) (24-44) % [place] % (Auto) (2-6) % Eos % (Auto) (2-4) % Baso % (Auto) (0-1) % PT (9.5-12.0) sec INR (0.80-1.20) Puncture Site ABG pH (7.350-7.450) ABG pCO2 (35.0-42.0) mmHg ABG pO2 (75.0-100.0) mmHg ABG HCO3 (22.0-26.0) mmol/L ABG Total CO2 (23.0-27.0) mmol/L ABG O2 Saturation (95.0-98.0) % ABG O2 Content (15.0-23.0) %vol ABG Base Excess mm/L ABG Hemoglobin (13.5-18.0) g/dL ABG Oxyhemoglobin % ABG Carboxyhemoglobin (0.0-1.6) % ABG Methemoglobin % Jun Test O2 Delivery Device Oxygen Flow Rate L Sodium (140-148) mmol/L Potassium (3.6-5.2) mmol/L Chloride (100-108) mmol/L Carbon Dioxide (21-32) mmol/L Anion Gap (5.0-14.0) mmol/L BUN (7-18) mg/dL Creatinine (0.8-1.3) mg/dL Est Cr Clr Drug Dosing Estimated GFR (MDRD) (>60) Glucose (74-106) mg/dL Lactic Acid 7.3 H (0.4-2.0) mmol/L Calcium (8.5-10.1) mg/dL Total Bilirubin (0.2-1.0) mg/dL AST (15-37) U/L ALT (12-78) U/L Alkaline Phosphatase (46-116) U/L C-Reactive Protein 0.09 (0.0-0.3) mg/dL Total Protein (6.4-8.2) g/dL Albumin (3.4-5.0) g/dL Globulin (2.3-3.5) g/dL Albumin/Globulin Ratio (1.2-2.2) Lipase (73-393) U/L Procalcitonin < 0.05 ng/mL Urine Color (YELLOW) Urine Appearance (CLEAR) Urine pH (5.0-8.0) Ur Specific [place] (1.008-1.030) Urine Protein (NEGATIVE) mg/dL Urine Glucose (UA) (NEGATIVE) mg/dL Urine Ketones (NEGATIVE) mg/dL Urine Occult Blood (NEGATIVE) Urine Nitrite (NEGATIVE) Urine Bilirubin (NEGATIVE) Urine Urobilinogen (0.2-1.0) EU/dL Ur Leukocyte Esterase (NEGATIVE) Urine RBC (0-5) Urine WBC (0-5) Ur Epithelial Cells Amorphous Sediment Urine Bacteria Urine Mucus Ethyl Alcohol mg/dL 01/21/20 01/21/20 01/21/20 Range/Units 13:30 14:04 18:07 WBC (4.5-11.0) K/uL RBC (4.30-5.90) M/uL Hgb (12.0-15.0) g/dL Hct (40.0-54.0) % MCV (80-98) fL MCH (27-31) pg MCHC (32-36) % Plt Count (150-400) K/uL Neut % (Auto) (36-66) % Lymph % (Auto) (24-44) % [place] % (Auto) (2-6) % Eos % (Auto) (2-4) % Baso % (Auto) (0-1) % PT (9.5-12.0) sec INR (0.80-1.20) Puncture Site Rt radial ABG pH 7.548 H (7.350-7.450) ABG pCO2 14.2 L* (35.0-42.0) mmHg ABG pO2 120.0 H (75.0-100.0) mmHg ABG HCO3 12.3 L (22.0-26.0) mmol/L ABG Total CO2 10.2 L (23.0-27.0) mmol/L ABG O2 Saturation 98.5 H (95.0-98.0) % ABG O2 Content 21.5 (15.0-23.0) %vol ABG Base Excess -7.0 mm/L ABG Hemoglobin 15.8 (13.5-18.0) g/dL ABG Oxyhemoglobin 96.3 % ABG Carboxyhemoglobin 1.1 (0.0-1.6) % ABG Methemoglobin 1.1 % Jun Test Passed O2 Delivery Device Nasal cannula Oxygen Flow Rate L Sodium (140-148) mmol/L Potassium (3.6-5.2) mmol/L Chloride (100-108) mmol/L Carbon Dioxide (21-32) mmol/L Anion Gap (5.0-14.0) mmol/L BUN (7-18) mg/dL Creatinine (0.8-1.3) mg/dL Est Cr Clr Drug Dosing Estimated GFR (MDRD) (>60) Glucose (74-106) mg/dL Lactic Acid 3.0 H (0.4-2.0) mmol/L Calcium (8.5-10.1) mg/dL Total Bilirubin (0.2-1.0) mg/dL AST (15-37) U/L ALT (12-78) U/L Alkaline Phosphatase (46-116) U/L C-Reactive Protein (0.0-0.3) mg/dL Total Protein (6.4-8.2) g/dL Albumin (3.4-5.0) g/dL Globulin (2.3-3.5) g/dL Albumin/Globulin Ratio (1.2-2.2) Lipase (73-393) U/L Procalcitonin ng/mL Urine Color Yellow (YELLOW) Urine Appearance Slightly cloudy A (CLEAR) Urine pH 5.5 (5.0-8.0) Ur Specific [place] >= 1.030 (1.008-1.030) Urine Protein 100 H (NEGATIVE) mg/dL Urine Glucose (UA) Negative (NEGATIVE) mg/dL Urine Ketones 40 H (NEGATIVE) mg/dL Urine Occult Blood Trace-lysed H (NEGATIVE) Urine Nitrite Negative (NEGATIVE) Urine Bilirubin Negative (NEGATIVE) Urine Urobilinogen 0.2 (0.2-1.0) EU/dL Ur Leukocyte Esterase Negative (NEGATIVE) Urine RBC 0-5 (0-5) Urine WBC 0-5 (0-5) Ur Epithelial Cells Not seen Amorphous Sediment Not seen Urine Bacteria Not seen Urine Mucus Moderate Ethyl Alcohol mg/dL 01/22/20 01/22/20 01/22/20 Range/Units 05:42 05:42 05:42 WBC 4.5 (4.5-11.0) K/uL RBC 4.30 (4.30-5.90) M/uL Hgb 12.4 D (12.0-15.0) g/dL Hct 37.8 L (40.0-54.0) % MCV 88 (80-98) fL MCH 29 (27-31) pg MCHC 33 (32-36) % Plt Count 139 L (150-400) K/uL Neut % (Auto) 65 (36-66) % Lymph % (Auto) 25 (24-44) % [place] % (Auto) 7 H (2-6) % Eos % (Auto) 2 (2-4) % Baso % (Auto) 0 (0-1) % PT 11.1 (9.5-12.0) sec INR 1.03 (0.80-1.20) Puncture Site ABG pH (7.350-7.450) ABG pCO2 (35.0-42.0) mmHg ABG pO2 (75.0-100.0) mmHg ABG HCO3 (22.0-26.0) mmol/L ABG Total CO2 (23.0-27.0) mmol/L ABG O2 Saturation (95.0-98.0) % ABG O2 Content (15.0-23.0) %vol ABG Base Excess mm/L ABG Hemoglobin (13.5-18.0) g/dL ABG Oxyhemoglobin % ABG Carboxyhemoglobin (0.0-1.6) % ABG Methemoglobin % Jun Test O2 Delivery Device Oxygen Flow Rate L Sodium (140-148) mmol/L Potassium (3.6-5.2) mmol/L Chloride (100-108) mmol/L Carbon Dioxide (21-32) mmol/L Anion Gap (5.0-14.0) mmol/L BUN (7-18) mg/dL Creatinine (0.8-1.3) mg/dL Est Cr Clr Drug Dosing Estimated GFR (MDRD) (>60) Glucose (74-106) mg/dL Lactic Acid 0.7 (0.4-2.0) mmol/L Calcium (8.5-10.1) mg/dL Total Bilirubin (0.2-1.0) mg/dL AST (15-37) U/L ALT (12-78) U/L Alkaline Phosphatase (46-116) U/L C-Reactive Protein (0.0-0.3) mg/dL Total Protein (6.4-8.2) g/dL Albumin (3.4-5.0) g/dL Globulin (2.3-3.5) g/dL Albumin/Globulin Ratio (1.2-2.2) Lipase (73-393) U/L Procalcitonin ng/mL Urine Color (YELLOW) Urine Appearance (CLEAR) Urine pH (5.0-8.0) Ur Specific [place] (1.008-1.030) Urine Protein (NEGATIVE) mg/dL Urine Glucose (UA) (NEGATIVE) mg/dL Urine Ketones (NEGATIVE) mg/dL Urine Occult Blood (NEGATIVE) Urine Nitrite (NEGATIVE) Urine Bilirubin (NEGATIVE) Urine Urobilinogen (0.2-1.0) EU/dL Ur Leukocyte Esterase (NEGATIVE) Urine RBC (0-5) Urine WBC (0-5) Ur Epithelial Cells Amorphous Sediment Urine Bacteria Urine Mucus Ethyl Alcohol mg/dL 01/22/20 Range/Units 05:42 WBC (4.5-11.0) K/uL RBC (4.30-5.90) M/uL Hgb (12.0-15.0) g/dL Hct (40.0-54.0) % MCV (80-98) fL MCH (27-31) pg MCHC (32-36) % Plt Count (150-400) K/uL Neut % (Auto) (36-66) % Lymph % (Auto) (24-44) % [place] % (Auto) (2-6) % Eos % (Auto) (2-4) % Baso % (Auto) (0-1) % PT (9.5-12.0) sec INR (0.80-1.20) Puncture Site ABG pH (7.350-7.450) ABG pCO2 (35.0-42.0) mmHg ABG pO2 (75.0-100.0) mmHg ABG HCO3 (22.0-26.0) mmol/L ABG Total CO2 (23.0-27.0) mmol/L ABG O2 Saturation (95.0-98.0) % ABG O2 Content (15.0-23.0) %vol ABG Base Excess mm/L ABG Hemoglobin (13.5-18.0) g/dL ABG Oxyhemoglobin % ABG Carboxyhemoglobin (0.0-1.6) % ABG Methemoglobin % Jun Test O2 Delivery Device Oxygen Flow Rate L Sodium 141 (140-148) mmol/L Potassium 3.6 (3.6-5.2) mmol/L Chloride 106 (100-108) mmol/L Carbon Dioxide 24 (21-32) mmol/L Anion Gap 11.2 (5.0-14.0) mmol/L BUN 8 (7-18) mg/dL Creatinine 0.7 L (0.8-1.3) mg/dL Est Cr Clr Drug Dosing 113.48 Estimated GFR (MDRD) > 60 (>60) Glucose 80 (74-106) mg/dL Lactic Acid (0.4-2.0) mmol/L Calcium 7.3 L (8.5-10.1) mg/dL Total Bilirubin 1.1 H (0.2-1.0) mg/dL AST 50 H (15-37) U/L ALT 112 H (12-78) U/L Alkaline Phosphatase 131 H (46-116) U/L C-Reactive Protein (0.0-0.3) mg/dL Total Protein 4.8 L (6.4-8.2) g/dL Albumin 2.7 L (3.4-5.0) g/dL Globulin 2.1 L (2.3-3.5) g/dL Albumin/Globulin Ratio 1.3 (1.2-2.2) Lipase (73-393) U/L Procalcitonin ng/mL Urine Color (YELLOW) Urine Appearance (CLEAR) Urine pH (5.0-8.0) Ur Specific [place] (1.008-1.030) Urine Protein (NEGATIVE) mg/dL Urine Glucose (UA) (NEGATIVE) mg/dL Urine Ketones (NEGATIVE) mg/dL Urine Occult Blood (NEGATIVE) Urine Nitrite (NEGATIVE) Urine Bilirubin (NEGATIVE) Urine Urobilinogen (0.2-1.0) EU/dL Ur Leukocyte Esterase (NEGATIVE) Urine RBC (0-5) Urine WBC (0-5) Ur Epithelial Cells Amorphous Sediment Urine Bacteria Urine Mucus Ethyl Alcohol mg/dL Med Orders - Current: Current Medications Acetaminophen (Tylenol) 650 mg PO Q4H PRN PRN Reason: Pain (Mild 1-3)/fever Amphetamine/Dextroamphetamine (Adderall) 20 mg PO DAILY [facility] Aspirin (Halfprin) 81 mg PO DAILY [facility] Fluoxetine HCl (Prozac) 40 mg PO DAILY [facility] Folic Acid (Folic Acid) 1 mg PO DAILY [facility] Last Admin: 01/21/20 17:22 Dose: 1 mg Hydromorphone HCl (Dilaudid) 0.5 mg IVPUSH Q2H PRN PRN Reason: Pain Last Admin: 01/21/20 19:52 Dose: 0.5 mg Meropenem 1 gm/ Sodium (Chloride) 100 mls @ 200 mls/hr IV Q8H [facility] Last Admin: 01/22/20 00:01 Dose: 200 mls/hr Metronidazole 500 mg/ Premix 100 mls @ 100 mls/hr IV Q8H [facility] Lorazepam (Ativan) 0 mg IV ASDIRECTED [facility]; Protocol Lorazepam (Ativan) 0 mg PO ASDIRECTED [facility]; Protocol Last Admin: 01/22/20 00:11 Dose: 2 mg Metoprolol Tartrate (Lopressor) 25 mg PO DAILY [facility] Ondansetron HCl (Zofran) 4 mg IV Q4H PRN PRN Reason: Nausea/Vomiting Pantoprazole Sodium (Protonix) 40 mg PO BIDAC [facility] Polyethylene Glycol (Miralax) 17 gm PO DAILY PRN PRN Reason: Constipation Prazosin HCl (Minpress) 5 mg PO BEDTIME [facility] Last Admin: 01/21/20 21:41 Dose: 5 mg Quetiapine Fumarate (Seroquel) 25 mg PO BEDTIME [facility] Last Admin: 01/21/20 21:42 Dose: 25 mg Sodium Chloride (Saline Flush) 10 ml FLUSH ASDIRECTED PRN PRN Reason: Keep Vein Open Tamsulosin HCl (Flomax) 0.4 mg PO DAILY [facility] Thiamine HCl (Vitamin B-1) 100 mg PO DAILY [facility] Last Admin: 01/21/20 17:22 Dose: 100 mg Trazodone HCl (Trazodone) 50 mg PO BEDTIME [facility] Last Admin: 01/21/20 21:42 Dose: 50 mg Discontinued Medications Multivitamins/Minerals 10 ml/Thiamine HCl 100 mg/ Folic Acid 1 mg/ Magnesium Sulfate 3 gm/ Sodium Chloride 1,017.2 mls @ 500 mls/hr IV ASDIRECTED ONE Stop: 01/21/20 14:47 Last Admin: 01/21/20 12:45 Dose: 500 mls/hr Sodium Chloride (Normal Saline) 1,000 mls @ 1,000 mls/hr IV ASDIRECTED [facility] Last Admin: 01/21/20 14:21 Dose: 1,000 mls/hr Meropenem 1 gm/ Sodium (Chloride) 100 mls @ 200 mls/hr IV ONETIME ONE Stop: 01/21/20 15:59 Last Admin: 01/21/20 15:59 Dose: 200 mls/hr Lactated Ringer's (Ringers, Lactated) 500 mls @ 500 mls/hr IV .BOLUS [facility] Stop: 01/21/20 19:42 Last Admin: 01/21/20 17:39 Dose: 500 mls/hr Lactated Ringer's (Ringers, Lactated) 1,000 mls @ 125 mls/hr IV ASDIRECTED [facility] Last Admin: 01/22/20 03:02 Dose: 125 mls/hr Iopamidol (Isovue-300 (61%)) 123 ml IV . DIRECTED [facility] Last Admin: 01/21/20 15:49 Dose: 123 ml Ketorolac Tromethamine (Toradol) 30 mg IVPUSH ONETIME ONE Stop: 01/21/20 12:52 Last Admin: 01/21/20 12:58 Dose: 30 mg Lorazepam (Ativan) 1 mg IVPUSH ONETIME ONE Stop: 01/21/20 12:16 Last Admin: 01/21/20 12:27 Dose: 1 mg Ondansetron HCl (Zofran) 4 mg IVPUSH ONETIME ONE Stop: 01/21/20 12:16 Last Admin: 01/21/20 12:27 Dose: 4 mg Pantoprazole Sodium (Protonix Iv) 40 mg IV Q12H [facility] Last Admin: 01/22/20 05:13 Dose: 40 mg Sodium Chloride (Saline Flush) 10 ml FLUSH ONETIME ONE Stop: 01/21/20 15:29 Last Admin: 01/21/20 15:50 Dose: 10 ml - Exam Quality Assessment: DVT Prophylaxis General: Alert, Oriented, Cooperative, Mild Distress Lungs: Clear to Auscultation, Normal Respiratory Effort Cardiovascular: Regular Rate, Regular Rhythm, No Murmurs GI/Abdominal Exam: Soft, No Organomegaly, Tender. No: Distended, Guarding, Rigid, Rebound Extremities: Non-Tender, No Pedal Edema Sepsis Event Note - Evaluation Sepsis Screening Result: No Definite Risk - Focused Exam Vital Signs: Vital Signs Temp Pulse Resp BP BP Pulse Ox 01/22/20 08:00 97.6 F 66 18 144/92 H 91 L 01/22/20 06:00 22 H 112/59 L 91 L 01/22/20 04:00 98 F 22 H 107/63 01/22/20 02:00 22 H 104/64 91 L 01/22/20 00:00 97.7 F 21 H 122/69 92 L 01/21/20 22:00 24 H 142/74 H 92 L 01/21/20 21:41 143/71 H Date Exam was Performed: 01/22/20 Time Exam was Performed: 09:08 - Problem List Review Problem List Initiated/Reviewed/Updated: Yes - My Orders Last 24 Hours: My Active Orders 01/21/20 15:13 Resuscitation Status Routine 01/21/20 16:41 Patient Status [ADT] Routine Ambulate [RC] QID CIWAA Assessment [RC] Q1H Cardiac Monitoring [RC] Q6H Height and Weight [RC] DAILY Intake and Output [RC] QSHIFT Notify Provider Vital Signs [RC] ASDIRECTED Notify Provider [RC] PRN Oxygen Therapy [RC] PRN Peripheral IV Care [RC] Q12H Pulse Oximetry [RC] CONTINUOUS Up With Assistance [RC] ASDIRECTED Up to Chair [RC] QID Vital Signs [RC] Q2H Acetaminophen [Tylenol] 650 mg PO Q4H PRN HYDROmorphone [Dilaudid] 0.5 mg IVPUSH Q2H PRN LORazepam [Ativan] See Protocol IV ASDIRECTED LORazepam [Ativan] See Protocol PO ASDIRECTED Ondansetron [Zofran] 4 mg IV Q4H PRN Sodium Chloride 0.9% [Saline Flush] 10 ml FLUSH ASDIRECTED PRN polyethylene glycoL 3350 [MiraLAX] 17 gm PO DAILY PRN Peripheral IV Insertion Adult [OM.PC] Routine Seizure Precautions [OM.PC] Routine Sequential Compression Device [OM.PC] Per Unit Routine 01/21/20 17:00 Folic Acid 1 mg PO DAILY Thiamine [Vitamin B-1] 100 mg PO DAILY 01/21/20 21:00 Prazosin [Minpress] 5 mg PO BEDTIME QUEtiapine [SEROqueL] 25 mg PO BEDTIME traZODone 50 mg PO BEDTIME 01/22/20 00:05 Meropenem [Merrem] 1 gm Sodium Chloride 0.9% [Normal Saline] 100 ml IV Q8H 01/22/20 09:00 Amphetamine/Dextroamphetamine [Adderall] 20 mg PO DAILY Aspirin [Halfprin] 81 mg PO DAILY FLUoxetine [PROzac] 40 mg PO DAILY Metoprolol Tartrate [Lopressor] 25 mg PO DAILY Tamsulosin [Flomax] 0.4 mg PO DAILY 01/22/20 09:03 Convert IV to Saline Lock [OM.PC] Routine 01/22/20 10:00 metroNIDAZOLE/Normal Saline [Flagyl 500 MG in NS 100 ML] 500 mg Premix Bag 1 bag IV Q8H 01/22/20 16:30 Pantoprazole [ProTONIX] 40 mg PO BIDAC 01/22/20 Breakfast GI Soft Low Fiber [Soft Diet] [DIET] - Plan Plan:: ASSESSMENT AND PLAN COLITIS AND PROBABLE GASTRITIS-likely cause of current abdominal pain, no other obvious abnormality identified on CT scan. Abdominal pain improved from admission, no further nausea vomiting, and no fever. -Saline lock IV -Soft low residue diet -Nausea and pain medication as needed -Protonix po twice daily -IV meropenem and Flagyl -Blood cultures pending ALCOHOL INTOXICATION AND ABUSE -Monitor closely for alcohol withdrawal -Banana bag given in the emergency department -Alcohol withdrawal protocol MAINTENANCE ISSUES -DVT prophylaxis; SCUDs -GI prophylaxis; Protonix as above -[place] catheter; not indicated -Nutrition; n.p.o. -Nicotine dependence; not required CODE STATUS-FULL CODE ADMISSION STATUS-patient will be admitted to inpatient status, expect at least a 2 night hospital stay for evaluation and management of problems as outlined above. At the time of this admission I do not reasonably expected evaluation and management of this problem will require more than a 96 hour hospital stay. DISPOSITION-anticipate discharge to home after the hospital stay. PRIMARY CARE PROVIDER-
[2020-01-22] MEDS: Thiamine 100 MG Tab PO SCH ×2 (09:29→10:16)
[2020-01-22] MEDS: FLUoxetine 20 MG Cap PO SCH (09:29)
[2020-01-22] MEDS: Folic Acid 1 MG Tab PO SCH (09:29)
[2020-01-22] MEDS: Tamsulosin 0.4 MG Cap.ER PO SCH (09:29)
[2020-01-22] MEDS: Amphetamine/Dextroamphetamine Salts 10 MG Tab PO SCH (09:29)
[2020-01-22] MEDS: Aspirin 81 MG Tab.EC PO SCH (09:30)
[2020-01-22] MEDS: Metoprolol Tartrate 25 MG Tab PO SCH (09:30)
[2020-01-22] MEDS: metroNIDAZOLE/Normal Saline 500 MG in Premix Bag 1 BAG IV SCH ×2 (10:16→17:48)
[2020-01-22] MEDS: HYDROmorphone 0.5 MG/0.5 ML Syringe IVPUSH PRN (12:11)
[2020-01-22] MEDS: Pantoprazole 40 MG Tab.CR PO SCH (16:12)
[2020-01-22] MEDS: Prazosin 1 MG Cap PO SCH (21:38)
[2020-01-22] MEDS: QUEtiapine 25 MG Tab PO SCH (21:39)
[2020-01-22] MEDS: traZODone 50 MG Tab PO SCH (21:39)
[2020-01-23] MEDS: metroNIDAZOLE/Normal Saline 500 MG in Premix Bag 1 BAG IV SCH ×2 (01:58→10:03)
[2020-01-23] MEDS: Pantoprazole 40 MG Tab.CR PO SCH (09:14)
[2020-01-23] MEDS: Meropenem 1 GM in Sodium Chloride 0.9% 100 ML IV SCH (09:16)
[2020-01-23] MEDS: FLUoxetine 20 MG Cap PO SCH (09:18)
[2020-01-23] MEDS: Tamsulosin 0.4 MG Cap.ER PO SCH (09:18)
[2020-01-23] MEDS: Metoprolol Tartrate 25 MG Tab PO SCH (09:19)
[2020-01-23] MEDS: Thiamine 100 MG Tab PO SCH (09:19)
[2020-01-23] MEDS: Folic Acid 1 MG Tab PO SCH (09:19)
[2020-01-23] MEDS: Aspirin 81 MG Tab.EC PO SCH (09:20)
[2020-01-23] MEDS: Amphetamine/Dextroamphetamine Salts 10 MG Tab PO SCH (09:24)
[2020-01-23] MEDS: LORazepam 1 MG Tab PO SCH ×2 (10:29→13:15)
[2020-01-23 13:10] VITALS: BP 147/92; PULSE 78
--- NOTE | 2020-01-23 13:58 | PCM.DCSUM1 ---
Discharge Summary - Hospital Course Brief History: Mr. Luna is a 49-year-old gentleman who was admitted through the emergency department with abdominal pain nausea vomiting secondary to gastritis and underlying colitis. - Discharge Data Discharge Date: 01/23/20 Discharge Disposition: Home, Self-Care 01 Condition: Fair - Referral to Home Health Primary Care Physician: PCP None - Discharge Diagnosis/Problem(s) (1) Alcohol withdrawal SNOMED Code(s): 674045286 ICD Code: F10.239 - ALCOHOL DEPENDENCE WITH WITHDRAWAL, UNSPECIFIED Status : Acute Current Visit: Yes (2) Nausea & vomiting SNOMED Code(s): 53452201 ICD Code: R11.2 - NAUSEA WITH VOMITING, UNSPECIFIED Status: Acute Current Visit: Yes (3) Gastritis SNOMED Code(s): 7613339 ICD Code: K29.70 - GASTRITIS, UNSPECIFIED, WITHOUT BLEEDING Status: Acute Current Visit: Yes (4) Colitis SNOMED Code(s): 32044180 ICD Code: K52.9 - NONINFECTIVE GASTROENTERITIS AND COLITIS, UNSPECIFIED Status: Acute Current Visit: Yes (5) Abdominal pain SNOMED Code(s): 55500293 ICD Code: R10.9 - UNSPECIFIED ABDOMINAL PAIN Status: Acute Current Visit : Yes Qualifiers: Abdominal location: left upper quadrant Qualified Code(s): R10.12 - Left upper quadrant pain (6) Alcohol intoxication SNOMED Code(s): 38510127 ICD Code: F10.929 - ALCOHOL USE, UNSPECIFIED WITH INTOXICATION, UNSPECIFIED Status: Acute Priority: High Current Visit: Yes Qualifiers: Complication of substance-induced condition: uncomplicated Qualified Code(s ): F10.920 - Alcohol use, unspecified with intoxication, uncomplicated - Patient Summary/Data Hospital Course: Mr. Luna is a 49-year-old gentleman who was admitted through the emergency department with alcohol intoxication and abdominal pain secondary to colitis and gastritis. Michael has a longstanding history of alcohol abuse as well as anxiety. He has been hospitalized recently at this facility for alcohol intoxication and withdrawal. He was discharged from detox recently, went home and started drinking shortly thereafter. He admits that he has been drinking heavily and has had several recent falls related to his alcohol abuse. This morning developed relatively abrupt onset of nausea vomiting and epigastric/ left upper quadrant abdominal pain. He has noted no hematemesis melena or hematochezia. Laboratory studies showed evidence of a elevated anion gap metabolic acidosis. Anion gap was elevated at 26 with a carbon dioxide level of 17 and a lactic acid level of over 7. White blood cell count was elevated at 14,000, CRP and procalcitonin were found to be within normal range. Lipase level was also within normal range. CT scan of the abdomen and pelvis showed evidence of diffuse colonic thickening consistent with inflammation, no other significant abnormalities were identified. On admission he was felt to have probable gastritis causing obvious nausea vomiting as well as underlying infectious colitis. He was given IV fluids for hydration and started on IV antibiotic therapy with meropenem and Flagyl. By the time of discharge abdominal pain and almost totally resolved and there was no further nausea or vomiting. He was tolerating a soft diet without difficulty. He had no significant fevers and his white blood cell count normalized. He was treated with Protonix twice daily during hospitalization and will be discharged on Protonix once daily. He will be discharged on additional 5 days of antibiotic therapy with ciprofloxacin and Flagyl. Elevated lactic acid resolved and this was felt to be mainly secondary to severe dehydration. There was no other evidence of significant sepsis. He did develop alcohol withdrawal symptoms that were fairly mild, he refused transfer to detox at the time of discharge. He will be discharged with a limited amount of lorazepam to use for management of withdrawal over the next day or 2. Activity will be as tolerated and he will resume his usual diet. He is scheduled for inpatient alcohol treatment on January 26. - Patient Instructions Diet: Usual Diet as Tolerated, No Alcoholic Beverages Activity: As Tolerated Other/Special Instructions: Patient will be admitted to inpatient alcohol treatment on January 26. - Discharge Plan *PRESCRIPTION DRUG MONITORING PROGRAM REVIEWED*: Not Applicable *COPY OF PRESCRIPTION DRUG MONITORING REPORT IN PATIENT LIZA: Not Applicable Prescriptions/Med Rec: Ciprofloxacin HCl [Cipro] 500 mg PO BID #10 tablet LORazepam [Ativan] 1 mg PO Q4H PRN #10 tablet PRN Reason: Withdrawal Symptoms metroNIDAZOLE [Flagyl] 500 mg PO Q8H #15 tab Pantoprazole [ProTONIX] 40 mg PO DAILY #30 tab.cr Home Medications: Home Meds Metoprolol Tartrate [Lopressor] 25 mg PO DAILY 03/29/14 [History] Prazosin HCl [Prazosin] 5 mg PO BEDTIME 11/05/16 [History] traZODone HCl [Trazodone HCl] 50 mg PO BEDTIME 11/05/16 [History] Aspirin [Low Dose Aspirin EC] 81 mg PO DAILY 01/07/20 [History] Dextroamphetamine/Amphetamine [Adderall 20 mg Tablet] 1 tab PO DAILY 01/07/20 [ History] Disulfiram 250 mg PO BID 01/07/20 [History] FLUoxetine HCl [Prozac] 40 mg PO DAILY 01/07/20 [History] Naltrexone 50 mg PO DAILY 01/07/20 [History] QUEtiapine [SEROquel] 25 mg PO BEDTIME 01/07/20 [History] Tamsulosin HCl [Flomax] 0.4 mg PO DAILY 01/07/20 [History] Ciprofloxacin HCl [Cipro] 500 mg PO BID #10 tablet 01/23/20 [Rx] LORazepam [Ativan] 1 mg PO Q4H PRN #10 tablet 01/23/20 [Rx] Pantoprazole [ProTONIX] 40 mg PO DAILY #30 tab.cr 01/23/20 [Rx] metroNIDAZOLE [Flagyl] 500 mg PO Q8H #15 tab 01/23/20 [Rx] - Discharge Summary/Plan Comment DC Time >30 min.: No - Patient Data Vitals - Most Recent: Last Vital Signs Temp 96.6 F L 01/23/20 12:00 Pulse 78 01/23/20 12:00 Resp 18 01/23/20 12:00 BP 147/92 H 01/23/20 12:00 Pulse Ox 97 01/23/20 12:00 Weight - Most Recent: 180 lb I&O - Last 24 hours: Intake & Output 01/22/20 01/23/20 01/23/20 22:59 06:59 14:59 Intake Total 1500 1000 800 Output Total 5202 301 4487 Balance 400 50 -200 ABRIL Results - Last 24 hrs: Microbiology 01/21/20 14:30 Aerobic Blood Culture - Preliminary Blood - Arm, Right NO GROWTH AFTER 1 DAY Anaerobic Blood Culture - Preliminary NO GROWTH AFTER 1 DAY 01/21/20 14:40 Aerobic Blood Culture - Preliminary Blood - Arm, Right NO GROWTH AFTER 1 DAY Anaerobic Blood Culture - Preliminary NO GROWTH AFTER 1 DAY Med Orders - Current: Current Medications Acetaminophen (Tylenol) 650 mg PO Q4H PRN PRN Reason: Pain (Mild 1-3)/fever Last Admin: 01/22/20 11:27 Dose: 650 mg Amphetamine/Dextroamphetamine (Adderall) 20 mg PO DAILY [facility] Last Admin: 01/23/20 09:24 Dose: 20 mg Aspirin (Halfprin) 81 mg PO DAILY [facility] Last Admin: 01/23/20 09:20 Dose: 81 mg Fluoxetine HCl (Prozac) 40 mg PO DAILY [facility] Last Admin: 01/23/20 09:18 Dose: 40 mg Folic Acid (Folic Acid) 1 mg PO DAILY [facility] Last Admin: 01/23/20 09:19 Dose: 1 mg Hydromorphone HCl (Dilaudid) 0.5 mg IVPUSH Q2H PRN PRN Reason: Pain Last Admin: 01/22/20 12:11 Dose: 0.5 mg Meropenem 1 gm/ Sodium (Chloride) 100 mls @ 200 mls/hr IV Q8H [facility] Last Admin: 01/23/20 09:16 Dose: 200 mls/hr Metronidazole 500 mg/ Premix 100 mls @ 100 mls/hr IV Q8H [facility] Last Admin: 01/23/20 10:03 Dose: 100 mls/hr Lorazepam (Ativan) 0 mg IV ASDIRECTED [facility]; Protocol Lorazepam (Ativan) 0 mg PO ASDIRECTED [facility]; Protocol Last Admin: 01/23/20 10:29 Dose: 1 mg Metoprolol Tartrate (Lopressor) 25 mg PO DAILY [facility] Last Admin: 01/23/20 09:19 Dose: 25 mg Ondansetron HCl (Zofran) 4 mg IV Q4H PRN PRN Reason: Nausea/Vomiting Pantoprazole Sodium (Protonix) 40 mg PO BIDAC [facility] Last Admin: 01/23/20 09:14 Dose: 40 mg Polyethylene Glycol (Miralax) 17 gm PO DAILY PRN PRN Reason: Constipation Prazosin HCl (Minpress) 5 mg PO BEDTIME [facility] Last Admin: 01/22/20 21:38 Dose: 5 mg Quetiapine Fumarate (Seroquel) 25 mg PO BEDTIME [facility] Last Admin: 01/22/20 21:39 Dose: 25 mg Sodium Chloride (Saline Flush) 10 ml FLUSH ASDIRECTED PRN PRN Reason: Keep Vein Open Last Admin: 01/22/20 12:48 Dose: 10 ml Tamsulosin HCl (Flomax) 0.4 mg PO DAILY [facility] Last Admin: 01/23/20 09:18 Dose: 0.4 mg Thiamine HCl (Vitamin B-1) 100 mg PO DAILY [facility] Last Admin: 01/23/20 09:19 Dose: 100 mg Trazodone HCl (Trazodone) 50 mg PO BEDTIME [facility] Last Admin: 01/22/20 21:39 Dose: 50 mg Discontinued Medications Multivitamins/Minerals 10 ml/Thiamine HCl 100 mg/ Folic Acid 1 mg/ Magnesium Sulfate 3 gm/ Sodium Chloride 1,017.2 mls @ 500 mls/hr IV ASDIRECTED ONE Stop: 01/21/20 14:47 Last Admin: 01/21/20 12:45 Dose: 500 mls/hr Sodium Chloride (Normal Saline) 1,000 mls @ 1,000 mls/hr IV ASDIRECTED [facility] Last Admin: 01/21/20 14:21 Dose: 1,000 mls/hr Meropenem 1 gm/ Sodium (Chloride) 100 mls @ 200 mls/hr IV ONETIME ONE Stop: 01/21/20 15:59 Last Admin: 01/21/20 15:59 Dose: 200 mls/hr Lactated Ringer's (Ringers, Lactated) 500 mls @ 500 mls/hr IV .BOLUS CAREY Stop: 01/21/20 19:42 Last Admin: 01/21/20 17:39 Dose: 500 mls/hr Lactated Ringer's (Ringers, Lactated) 1,000 mls @ 125 mls/hr IV ASDIRECTED [facility] Last Admin: 01/22/20 03:02 Dose: 125 mls/hr Iopamidol (Isovue-300 (61%)) 123 ml IV . DIRECTED [facility] Last Admin: 01/21/20 15:49 Dose: 123 ml Ketorolac Tromethamine (Toradol) 30 mg IVPUSH ONETIME ONE Stop: 01/21/20 12:52 Last Admin: 01/21/20 12:58 Dose: 30 mg Lorazepam (Ativan) 1 mg IVPUSH ONETIME ONE Stop: 01/21/20 12:16 Last Admin: 01/21/20 12:27 Dose: 1 mg Ondansetron HCl (Zofran) 4 mg IVPUSH ONETIME ONE Stop: 01/21/20 12:16 Last Admin: 01/21/20 12:27 Dose: 4 mg Pantoprazole Sodium (Protonix Iv) 40 mg IV Q12H [facility] Last Admin: 01/22/20 05:13 Dose: 40 mg Sodium Chloride (Saline Flush) 10 ml FLUSH ONETIME ONE Stop: 01/21/20 15:29 Last Admin: 01/21/20 15:50 Dose: 10 ml - Exam General: Reports: Alert, Oriented, Cooperative, Mild Distress Lungs: Reports: Clear to Auscultation, Normal Respiratory Effort Cardiovascular: Reports: Regular Rate, Regular Rhythm, No Murmurs GI/Abdominal Exam: Soft, No Organomegaly, Tender. No: Distended, Guarding, Rigid, Rebound
== END 2020-01-23 15:25 | disposition home or self-care (01) | DRG 241 ==
LOC: JP.ED 12:09 → JP.ICU 16:39
PROVIDERS: ADMIT Hospitalist; ATTEND Hospitalist
DX: K29.70 Gastritis, unspecified, without bleeding (principal); K52.9 Noninfective gastroenteritis and colitis, unspecified; F10.239 Alcohol dependence with withdrawal, unspecified; F10.229 Alcohol dependence with intoxication, unspecified; E86.0 Dehydration; I25.10 Atherosclerotic heart disease of native coronary artery without angina pectoris; I10 Essential (primary) hypertension; E87.2 Acidosis; F44.0 Dissociative amnesia; F32.9 Major depressive disorder, single episode, unspecified; E11.9 Type 2 diabetes mellitus without complications; Z88.0 Allergy status to penicillin; Z88.1 Allergy status to other antibiotic agents; Z79.82 Long term (current) use of aspirin; Z79.899 Other long term (current) drug therapy; I25.2 Old myocardial infarction; Z90.49 Acquired absence of other specified parts of digestive tract
CPT/HCPCS: 36415; 36600; 74177; 74177-26; 80053; 80307; 81001; 82803; 83605; 83690; 84145; 85025; 85610; 86140; 87040; 96365; 96366; 96375; 99285-25; A9270-GY; C9113; J1170; J1885; J2060; J2185; J2405; J3411; J3475; J3490; J7030; J7050; J7120; Q9967

== ENCOUNTER 2020-01-26 12:02 | Emergency (ER) | payer BC, MEDICAID ==
[2020-01-26 12:07] VITALS: BP 128/92; PULSE 103
[2020-01-26] MEDS ORDERED: MVI, Adult with Vitamin K 10 ML, Thiamine 100 MG, Folic Acid 1 MG, Magnesium Sulfate 3 ... IV SCH ×5 (13:00)
[2020-01-26] MEDS ORDERED: MVI, Adult with Vitamin K 10 ML, Thiamine 100 MG, Folic Acid 1 MG, Magnesium Sulfate 3 ... IV ONE ×5 (13:00)
--- NOTE | 2020-01-26 13:05 | EDM.PDOC ---
ED HPI GENERAL MEDICAL PROBLEM - General Chief Complaint: Neurological Problem Stated Complaint: MEDICAL Time Seen by Provider: 01/26/20 12:13 Source of Information: Reports: Patient, EMS History Limitations: Reports: No Limitations - History of Present Illness INITIAL COMMENTS - FREE TEXT/NARRATIVE: 49 y/o male who is well known to staff and has a history of chronic alcoholism had a spell of unresponsiveness and shaking this morning witnessed by his son at a local hotel where the patient is living. The patient admits to drinking etoh this morning, but denies THC or street drugs. He has a history of w/d sz, bariatric surgery, anemia, PTSD and generalized anxiety disorder. He was discharged from this hospital on 01/22 for etoh intox and abdominal pain. His GI symptoms resolved and was going to be voluntarily admitted to a treatment program at [facility] in [place] tomorrow. He reports falling and hitting his head a couple of days ago. He is currently vomiting, but no diarrhea. He denies other problems. - Related Data Allergies Allergy/AdvReac Type Severity Reaction Status Date / Time Penicillins Allergy Hives Verified 01/26/20 12:15 erythromycin base AdvReac Nausea Verified 01/26/20 12:15 Home Meds: Home Meds Metoprolol Tartrate [Lopressor] 25 mg PO DAILY 03/29/14 [History] Prazosin HCl [Prazosin] 5 mg PO BEDTIME 11/05/16 [History] traZODone HCl [Trazodone HCl] 50 mg PO BEDTIME 11/05/16 [History] Aspirin [Low Dose Aspirin EC] 81 mg PO DAILY 01/07/20 [History] Dextroamphetamine/Amphetamine [Adderall 20 mg Tablet] 1 tab PO DAILY 01/07/20 [ History] Disulfiram 250 mg PO BID 01/07/20 [History] FLUoxetine HCl [Prozac] 40 mg PO DAILY 01/07/20 [History] Naltrexone 50 mg PO DAILY 01/07/20 [History] QUEtiapine [SEROquel] 25 mg PO BEDTIME 01/07/20 [History] Tamsulosin HCl [Flomax] 0.4 mg PO DAILY 01/07/20 [History] Ciprofloxacin HCl [Cipro] 500 mg PO BID #10 tablet 01/23/20 [Rx] LORazepam [Ativan] 1 mg PO Q4H PRN #10 tablet 01/23/20 [Rx] Pantoprazole [ProTONIX] 40 mg PO DAILY #30 tab.cr 01/23/20 [Rx] metroNIDAZOLE [Flagyl] 500 mg PO Q8H #15 tab 01/23/20 [Rx] Past Medical History HEENT History: Reports: Impaired Vision Cardiovascular History: Reports: Arrhythmia, CAD, Hypertension, [place], Other (See Below) Other Cardiovascular History: svt Respiratory History: Reports: Bronchitis, Recurrent Gastrointestinal History: Reports: Diverticulosis Genitourinary History: Reports: Prostate Disorder, Renal Calculus Musculoskeletal History: Reports: Fracture Other Musculoskeletal History: dislocated shoulder Neurological History: Reports: Concussion Psychiatric History: Reports: Addiction, Anxiety, Depression, Panic Attack, Psych Hospitalization(s), PTSD, Suicide Attempt Other Psychiatric History: Major depressive disorder Endocrine/Metabolic History: Reports: Diabetes, Type II, Other (See Below) Other Endocrine/Metabolic History: type II diabetes history Hematologic History: Reports: B12 Deficiency, Folic Acid Immunologic History: Reports: Other (See Below) Other Immunologic History: anaplasmosis, lyme disease Dermatologic History: Reports: Eczema - Infectious Disease History Infectious Disease History: Reports: Chicken Pox - Past Surgical History GI Surgical History: Reports: Bariatric Procedure, Cholecystectomy, Colonoscopy Musculoskeletal Surgical History: Reports: Arthroscopic Knee Social & Family History - Tobacco Use Smoking Status *Q: Current Some Day Smoker Years of Tobacco use: 20 Packs/Tins Daily: 0.2 - Caffeine Use Caffeine Use: Reports: Coffee - Alcohol Use Days Per Week of Alcohol Use: 7 Number of Drinks Per Day: 10 Total Drinks Per Week: 70 - Recreational Drug Use Recreational Drug Use: No - Living Situation & Occupation Living situation: Reports: with Significant Other (reports is getting divorce from in [place], living with his son.) Occupation: Employed ED ROS GENERAL - Review of Systems Review Of Systems: See Below Constitutional: Reports: Decreased Appetite. Denies: Chills, Diaphoresis HEENT: Reports: No Symptoms. Denies: Vision Change Respiratory: Denies: Shortness of Breath, Cough Cardiovascular: Denies: Chest Pain, Edema, Palpitations Endocrine: Denies: Polydypsia, Polyuria GI/Abdominal: Reports: Nausea, Vomiting. Denies: Diarrhea : Denies: Frequency, Pain, Urgency Musculoskeletal: Denies: Neck Pain, Shoulder Pain, Back Pain Skin: Reports: Bruising Neurological: Reports: Seizure, Syncope. Denies: Headache, Numbness, Paresthesia Psychiatric: Reports: Anxiety, Depression - Physical Exam Exam: See Below Exam Limited By: Intoxication General Appearance: Alert, WD/WN, No Apparent Distress Ears: Normal External Exam, Normal Canal Throat/Mouth: Normal Inspection, Normal Teeth, Normal Oropharynx Head Exam: Other (There is a left infraorbital bruise and an abrasion on the right hinduism parietal area of scalp) Neck: Non-Tender, Full Range of Motion Respiratory/Chest: No Respiratory Distress, Lungs Clear, Normal Breath Sounds Cardiovascular: Normal Peripheral Pulses, Regular Rate, Rhythm GI/Abdominal: Normal Bowel Sounds, Soft, Non-Tender Neuro Exam (Abbreviated): Alert, Oriented, No Motor/Sensory Deficits Extremities: Normal Inspection, Normal Range of Motion, Non-Tender Skin Exam: Warm, Dry Course - Vital Signs Text/Narrative:: He presents by EMS after a spell at his hotel room witnessed by his son. It was a brief episode of upper arm stiffening and unresponsiveness. He is alert on arrival and GCS is 15. His primary and secondary exams are normal with the exception of a scalp abrasion and a left infraorbital bruise. His blood alcohol level is 350 and CIWA-AR score is under 10. He is hemoconcentrated with a elevated hgb and hct. His creatinine is 0.9. LFTs are increased without obstruction. A head CT was read as normal. His glucose level was 131. He received a "banana bag" with thiamine and MVIs. He ambulated without difficulty. I don't think he had a withdrawal sz since his etoh level was high, CIWA-AR score low (no agitation). His son Ye is responsible and is staying with his father at the hotel. He has agreed to take care of his dad until he is sober. The patient is not suicidal and has no emergency medical conditions. He is hemodynamically intact. His mother and son stated that he did not intend to go to treatment tomorrow because his health insurance will only cover part of the cost and he does not have money to cover the rest of the expense. His mom will contact executive secretary social welfare tomorrow and seek help for this patient. Last Recorded V/S: Last Vital Signs Temp 36.7 C 01/26/20 12:24 Pulse 103 H 01/26/20 12:24 Resp 22 H 01/26/20 12:24 BP 128/92 H 01/26/20 12:24 Pulse Ox 94 L 01/26/20 12:24 - Orders/Labs/Meds Orders: Active Orders 24 hr Category Date Time Status EKG Documentation Completion [RC] ASDIRECTED Care 01/26/20 12:57 Active DRUG SCREEN, URINE [URCHEM] Stat Lab 01/26/20 12:55 Ordered UA W/MICROSCOPIC [URIN] Stat Lab 01/26/20 12:55 Ordered EKG 12 Lead [EK] Routine Ther 01/26/20 12:55 Ordered Labs: Laboratory Tests 01/26/20 01/26/20 01/26/20 Range/Units 13:16 13:16 13:16 WBC 8.8 (4.5-11.0) K/uL RBC 5.56 (4.30-5.90) M/uL Hgb 16.8 H D (12.0-15.0) g/dL Hct 47.7 (40.0-54.0) % MCV 86 (80-98) fL MCH 30 (27-31) pg MCHC 35 (32-36) % Plt Count 276 (150-400) K/uL Neut % (Auto) 67 H (36-66) % Lymph % (Auto) 23 L (24-44) % Reagan % (Auto) 7 H (2-6) % Eos % (Auto) 1 L (2-4) % Baso % (Auto) 2 H (0-1) % Sodium 148 (140-148) mmol/L Potassium 3.6 (3.6-5.2) mmol/L Chloride 107 (100-108) mmol/L Carbon Dioxide 26 (21-32) mmol/L Anion Gap 15.1 H (5.0-14.0) mmol/L BUN 9 (7-18) mg/dL Creatinine 0.9 (0.8-1.3) mg/dL Est Cr Clr Drug Dosing 91.56 mL/min Estimated GFR (MDRD) > 60 (>60) Glucose 131 H (74-106) mg/dL Calcium 7.5 L (8.5-10.1) mg/dL Total Bilirubin 0.8 (0.2-1.0) mg/dL AST 202 H D (15-37) U/L ALT 298 H (12-78) U/L Alkaline Phosphatase 153 H (46-116) U/L Total Protein 6.2 L (6.4-8.2) g/dL Albumin 3.6 (3.4-5.0) g/dL Globulin 2.6 (2.3-3.5) g/dL Albumin/Globulin Ratio 1.4 (1.2-2.2) Ethyl Alcohol 359 mg/dL Meds: Medications Discontinued Medications Generic Name Dose Route Start Last Admin Trade Name Freq PRN Reason Stop Dose Admin Multivitamins/Minerals 10 ml/ 1,017.2 mls @ 900 mls/hr 01/26/20 13:00 13:22 Thiamine HCl 100 mg/ Folic IV 01/26/20 14:07 900 mls/hr Acid 1 mg/ Magnesium Sulfate 3 ONETIME ONE Administration gm/ Sodium Chloride Sodium Chloride 100 mls @ 3 mls/sec 01/26/20 13:30 Normal Saline IV ASDIRECTED CAREY Iopamidol 100 ml 01/26/20 13:30 Isovue-300 (61%) IV . DIRECTED [facility] Sodium Chloride 10 ml 01/26/20 13:27 Saline Flush FLUSH 01/26/20 13:28 ONETIME ONE Departure - Departure Time of Disposition: 14:30 Disposition: Home, Self-Care 01 Condition: Fair Clinical Impression: Acute alcohol intoxication, Alcohol withdrawal - Discharge Information *PRESCRIPTION DRUG MONITORING PROGRAM REVIEWED*: No *COPY OF PRESCRIPTION DRUG MONITORING REPORT IN PATIENT LIZA: No Instructions: Alcohol Withdrawal Syndrome, [id number] Referrals: PCP,None [Primary Care Provider] - Forms: ED Department Discharge Additional Instructions: Avoid use of alcohol. Follow up with your primary care provider. Return to the ER as needed. Sepsis Event Note (ED) - Evaluation Sepsis Screening Result: No Definite Risk - Focused Exam Vital Signs: Vital Signs Temp Pulse Resp BP Pulse Ox 01/26/20 12:24 36.7 C 103 H 22 H 128/92 H 94 L 01/26/20 12:06 36.7 C 103 H 22 H 128/92 H 94 L - My Orders Last 24 Hours: My Active Orders 01/26/20 12:55 DRUG SCREEN, URINE [URCHEM] Stat UA W/MICROSCOPIC [URIN] Stat EKG 12 Lead [EK] Routine 01/26/20 12:57 EKG Documentation Completion [RC] ASDIRECTED - Assessment/Plan Last 24 Hours: My Active Orders 01/26/20 12:55 DRUG SCREEN, URINE [URCHEM] Stat UA W/MICROSCOPIC [URIN] Stat EKG 12 Lead [EK] Routine 01/26/20 12:57 EKG Documentation Completion [RC] ASDIRECTED
[2020-01-26] MEDS ORDERED: Sodium Chloride 0.9% 10 ML Syringe FLUSH ONE (13:27)
[2020-01-26] MEDS ORDERED: Iopamidol 612 MG/ML 100 ML Bottle IV SCH (13:30)
[2020-01-26] MEDS ORDERED: Sodium Chloride 0.9% 100 ML IV SCH (13:30)
--- NOTE | 2020-01-26 14:22 | CRLCT ---
INDICATION: Head injury TECHNIQUE: CT Head without contrast. COMPARISON: None FINDINGS: Ventricles and sulci are normal in size and configuration. No extra axial collection. No acute intracranial hemorrhage. No mass effect or edema. No CT evidence of acute, large territorial infarction. Visualized paranasal sinuses and mastoid air cells are well aerated. Calvarium is unremarkable. IMPRESSION: No acute intracranial hemorrhage or mass effect. Dictated by Liudmila Tadeo MD @ 01/26/2020 2:21:12 PM Please note that all CT scans at this facility use dose modulation, iterative reconstruction, and/or weight-based dosing when appropriate to reduce radiation dose to as low as reasonably achievable. Dictated by: Liudmila Tadeo MD @ 01/26/2020 14:21:20 (Electronically Signed)
== END 2020-01-26 15:18 | disposition home or self-care (01) ==
LOC: JP.ED 12:02
DX: F10.239 Alcohol dependence with withdrawal, unspecified (principal); F10.229 Alcohol dependence with intoxication, unspecified; I10 Essential (primary) hypertension; I25.10 Atherosclerotic heart disease of native coronary artery without angina pectoris; F41.9 Anxiety disorder, unspecified; F32.9 Major depressive disorder, single episode, unspecified; E11.9 Type 2 diabetes mellitus without complications; I25.2 Old myocardial infarction; F17.210 Nicotine dependence, cigarettes, uncomplicated; Y90.8 Blood alcohol level of 240 mg/100 ml or more; Z88.0 Allergy status to penicillin; Z88.1 Allergy status to other antibiotic agents; Z79.82 Long term (current) use of aspirin; Z79.899 Other long term (current) drug therapy
CPT/HCPCS: 36415; 70450; 80053; 80307; 85025; 93005; 93010; 96374; 99285; J3411; J3475; J7030; J3490

== ENCOUNTER 2020-01-27 14:17 | Emergency (ER) | payer BC ==
--- NOTE | 2020-01-27 14:54 | EDM.PDOC ---
ED HPI GENERAL MEDICAL PROBLEM - General Chief Complaint: Neuro Symptoms/Deficits Stated Complaint: DRINKING Time Seen by Provider: 01/27/20 14:30 Source of Information: Reports: Patient, EMS History Limitations: Reports: Altered Mental Status - History of Present Illness INITIAL COMMENTS - FREE TEXT/NARRATIVE: 49-year-old male with ongoing alcohol abuse issues was discharged from the hospital 2 days ago, seen in the emergency room yesterday with a blood alcohol 0.35 and discharged, returns again today by ambulance because of "seizure activity". There appears to be a strong psychiatric overlay to his symptoms today. He did receive 5 mg of IM Versed in route, is somewhat sedated but is still answering questions appropriately if prompted and encouraged. Onset: Unknown/Unsure Worsens with: Reports: Other (Alcohol intake) Associated Symptoms: Reports: Other. Denies: Chest Pain, Cough - Related Data Allergies Allergy/AdvReac Type Severity Reaction Status Date / Time Penicillins Allergy Hives Verified 01/27/20 14:42 erythromycin base AdvReac Nausea Verified 01/27/20 14:42 Home Meds: Home Meds Metoprolol Tartrate [Lopressor] 25 mg PO DAILY 03/29/14 [History] Prazosin HCl [Prazosin] 5 mg PO BEDTIME 11/05/16 [History] traZODone HCl [Trazodone HCl] 50 mg PO BEDTIME 11/05/16 [History] Aspirin [Low Dose Aspirin EC] 81 mg PO DAILY 01/07/20 [History] Dextroamphetamine/Amphetamine [Adderall 20 mg Tablet] 1 tab PO DAILY 01/07/20 [ History] Disulfiram 250 mg PO BID 01/07/20 [History] FLUoxetine HCl [Prozac] 40 mg PO DAILY 01/07/20 [History] Naltrexone 50 mg PO DAILY 01/07/20 [History] QUEtiapine [SEROquel] 25 mg PO BEDTIME 01/07/20 [History] Tamsulosin HCl [Flomax] 0.4 mg PO DAILY 01/07/20 [History] Ciprofloxacin HCl [Cipro] 500 mg PO BID #10 tablet 01/23/20 [Rx] LORazepam [Ativan] 1 mg PO Q4H PRN #10 tablet 01/23/20 [Rx] Pantoprazole [ProTONIX] 40 mg PO DAILY #30 tab.cr 01/23/20 [Rx] metroNIDAZOLE [Flagyl] 500 mg PO Q8H #15 tab 01/23/20 [Rx] Past Medical History HEENT History: Reports: Impaired Vision Cardiovascular History: Reports: Arrhythmia, CAD, Hypertension, [place], Other (See Below) Other Cardiovascular History: svt Respiratory History: Reports: Bronchitis, Recurrent Gastrointestinal History: Reports: Diverticulosis Genitourinary History: Reports: Prostate Disorder, Renal Calculus Musculoskeletal History: Reports: Fracture Other Musculoskeletal History: dislocated shoulder Neurological History: Reports: Concussion Psychiatric History: Reports: Addiction, Anxiety, Depression, Panic Attack, Psych Hospitalization(s), PTSD, Suicide Attempt Other Psychiatric History: Major depressive disorder Endocrine/Metabolic History: Reports: Diabetes, Type II, Other (See Below) Other Endocrine/Metabolic History: type II diabetes history Hematologic History: Reports: B12 Deficiency, Folic Acid Immunologic History: Reports: Other (See Below) Other Immunologic History: anaplasmosis, lyme disease Dermatologic History: Reports: Eczema - Infectious Disease History Infectious Disease History: Reports: Chicken Pox - Past Surgical History GI Surgical History: Reports: Bariatric Procedure, Cholecystectomy, Colonoscopy Musculoskeletal Surgical History: Reports: Arthroscopic Knee Social & Family History - Caffeine Use Caffeine Use: Reports: Coffee - Living Situation & Occupation Living situation: Reports: with Significant Other (reports is getting divorce from in [place], living with his son.) Occupation: Employed ED ROS GENERAL - Review of Systems Review Of Systems: See Below Constitutional: Denies: Fever, Chills Respiratory: Denies: Shortness of Breath Cardiovascular: Denies: Chest Pain GI/Abdominal: Reports: Abdominal Pain, Nausea, Vomiting Skin: Reports: Bruising, Other (Numerous scattered bruises of the extremities and trunk, a few around the periorbital areas) Neurological: Reports: Other (Initially decreased level of consciousness) Psychiatric: Reports: Depression ED EXAM, GENERAL - Physical Exam Exam: See Below Exam Limited By: Altered Mental Status General Appearance: Lethargic Eye Exam: Bilateral Eye: Periorbital Changes (Some periorbital ecchymosis on the eyebrows bilaterally), PERRL Head: No: Facial Swelling Neck: Supple, Non-Tender Respiratory/Chest: Lungs Clear Cardiovascular: Regular Rate, Rhythm GI/Abdominal: Soft, Tender (Mild discomfort with palpation across the upper abdomen, no guarding) Neurological: Other (Patient rapidly became more alert after 20 to 30 minutes in the emergency room and was answering questions appropriately.) Psychiatric: Depressed Mood, Flat Affect, Tearful Course - Vital Signs Last Recorded V/S: Last Vital Signs Temp 95.5 F L 01/27/20 17:38 Pulse 106 H 01/27/20 16:36 Resp 12 01/27/20 16:36 BP 139/105 H 01/27/20 16:36 Pulse Ox 99 01/27/20 14:20 - Orders/Labs/Meds Labs: Laboratory Tests 01/27/20 01/27/20 01/27/20 Range/Units 14:29 14:29 14:29 WBC 11.6 H (4.5-11.0) K/uL RBC 5.65 (4.30-5.90) M/uL Hgb 16.9 H (12.0-15.0) g/dL Hct 48.4 (40.0-54.0) % MCV 86 (80-98) fL MCH 30 (27-31) pg MCHC 35 (32-36) % Plt Count 285 (150-400) K/uL Neut % (Auto) 81 H (36-66) % Lymph % (Auto) 14 L (24-44) % Pratt % (Auto) 5 (2-6) % Eos % (Auto) 0 L (2-4) % Baso % (Auto) 1 (0-1) % Sodium 147 (140-148) mmol/L Potassium 3.8 (3.6-5.2) mmol/L Chloride 107 (100-108) mmol/L Carbon Dioxide 28 (21-32) mmol/L Anion Gap 12.1 (5.0-14.0) mmol/L BUN 7 (7-18) mg/dL Creatinine 0.8 (0.8-1.3) mg/dL Est Cr Clr Drug Dosing TNP Estimated GFR (MDRD) > 60 (>60) Glucose 168 H (74-106) mg/dL Lactic Acid 3.5 H (0.4-2.0) mmol/L Calcium 7.5 L (8.5-10.1) mg/dL Total Bilirubin 0.7 (0.2-1.0) mg/dL AST 157 H (15-37) U/L ALT 252 H (12-78) U/L Alkaline Phosphatase 156 H (46-116) U/L Total Protein 6.4 (6.4-8.2) g/dL Albumin 3.6 (3.4-5.0) g/dL Globulin 2.8 (2.3-3.5) g/dL Albumin/Globulin Ratio 1.3 (1.2-2.2) Ethyl Alcohol mg/dL 01/27/20 01/27/20 Range/Units 14:29 16:52 WBC (4.5-11.0) K/uL RBC (4.30-5.90) M/uL Hgb (12.0-15.0) g/dL Hct (40.0-54.0) % MCV (80-98) fL MCH (27-31) pg MCHC (32-36) % Plt Count (150-400) K/uL Neut % (Auto) (36-66) % Lymph % (Auto) (24-44) % Pratt % (Auto) (2-6) % Eos % (Auto) (2-4) % Baso % (Auto) (0-1) % Sodium (140-148) mmol/L Potassium (3.6-5.2) mmol/L Chloride (100-108) mmol/L Carbon Dioxide (21-32) mmol/L Anion Gap (5.0-14.0) mmol/L BUN (7-18) mg/dL Creatinine (0.8-1.3) mg/dL Est Cr Clr Drug Dosing Estimated GFR (MDRD) (>60) Glucose (74-106) mg/dL Lactic Acid (0.4-2.0) mmol/L Calcium (8.5-10.1) mg/dL Total Bilirubin (0.2-1.0) mg/dL AST (15-37) U/L ALT (12-78) U/L Alkaline Phosphatase (46-116) U/L Total Protein (6.4-8.2) g/dL Albumin (3.4-5.0) g/dL Globulin (2.3-3.5) g/dL Albumin/Globulin Ratio (1.2-2.2) Ethyl Alcohol 443 355 mg/dL Meds: Medications Discontinued Medications Generic Name Dose Route Start Last Admin Trade Name Freq PRN Reason Stop Dose Admin Sodium Chloride 1,000 mls @ 1,000 mls/hr 01/27/20 16:00 01/27/20 16:19 Normal Saline IV 1,000 mls/hr ASDIRECTED CAREY Administration Metoclopramide HCl 5 mg 01/27/20 17:15 01/27/20 17:22 Reglan IVPUSH 01/27/20 17:16 5 mg ONETIME ONE Administration Ondansetron HCl 4 mg 01/27/20 15:59 01/27/20 16:22 Zofran IVPUSH 01/27/20 16:00 4 mg ONETIME ONE Administration - Re-Assessments/Exams Free Text/Narrative Re-Assessment/Exam: 01/27/20 14:55 EtOH, CBC and lactic acid were obtained. Arrangements will be made for the patient to be sent to detox unless labs indicate further treatment is needed. 01/27/20 15:22 EtOH returned 0.44. He is willing to go to [place] detox but they will not accept him until his EtOH is under 0.4. He is now sitting up and visiting with his mother, answering questions appropriately, and is willing to go to detox. EtOH will be rechecked in 1 hour. 01/27/20 16:34 Patient tried to have something to eat and became very nauseous and started dry heaving. An IV was started, he was given 4 mg of IV Zofran and 1 L of normal saline. 45 minutes later he was calmed down and felt he was well enough to go to [place] so an EtOH was redrawn. 01/27/20 17:30 Redraw was 0.355, patient was given Reglan to help with his nausea and vomiting and will be transported to [place] by private car. Departure - Departure Time of Disposition: 17:55 Disposition: DC/Tfer to Other 70 Clinical Impression: Alcohol intoxication Qualifiers: Complication of substance-induced condition: uncomplicated Qualified Code(s): F10.920 - Alcohol use, unspecified with intoxication, uncomplicated - Discharge Information Instructions: Alcohol Intoxication Referrals: PCP,None [Primary Care Provider] - Forms: ED Department Discharge Care Plan Goals: Patient is to be transported to [place] for detox by private car, his mother will transport him. Arrangements for long-term treatment can be arranged while in [place]. Sepsis Event Note (ED) - Focused Exam Vital Signs: Vital Signs Temp Pulse Resp BP Pulse Ox 01/27/20 17:38 95.5 F L 01/27/20 16:36 106 H 12 139/105 H 01/27/20 16:07 116 H 24 H 149/95 H 01/27/20 15:36 114 H 16 140/100 H 01/27/20 15:06 125 H 14 126/105 H 01/27/20 14:37 122 H 14 120/87 01/27/20 14:20 120 H 23 H 130/99 H 99
[2020-01-27] MEDS ORDERED: Ondansetron 4 MG/2 ML SDV IVPUSH ONE (15:59)
[2020-01-27] MEDS ORDERED: Sodium Chloride 0.9% 1,000 ML IV SCH (16:00)
[2020-01-27] MEDS ORDERED: Metoclopramide 10 MG/2 ML SDV IVPUSH ONE (17:15)
[2020-01-27 17:28] VITALS: BP 139/105; PULSE 106
== END 2020-01-27 17:55 | disposition other institution (70) ==
LOC: JP.ED 14:17
DX: F10.120 Alcohol abuse with intoxication, uncomplicated (principal); Y90.8 Blood alcohol level of 240 mg/100 ml or more; I25.10 Atherosclerotic heart disease of native coronary artery without angina pectoris; I10 Essential (primary) hypertension; I25.2 Old myocardial infarction; F41.9 Anxiety disorder, unspecified; F32.9 Major depressive disorder, single episode, unspecified; E11.9 Type 2 diabetes mellitus without complications; Z88.0 Allergy status to penicillin; Z88.1 Allergy status to other antibiotic agents; Z79.899 Other long term (current) drug therapy; Z79.82 Long term (current) use of aspirin
CPT/HCPCS: 36415; 80053; 80307; 83605; 85025; 96361; 96374; 96375; 99285; J2405; J2765; J7030

== ENCOUNTER 2020-01-27 19:21 | Emergency (ER) | payer BC ==
[2020-01-27 19:33] VITALS: BP 130/99; PULSE 145
[2020-01-27] MEDS ORDERED: LORazepam 1 MG Tab PO ONE (19:51)
--- NOTE | 2020-01-27 19:59 | EDM.PDOCBH ---
ED HPI GENERAL MEDICAL PROBLEM - General Chief Complaint: Drug or Alcohol Abuse Stated Complaint: MEDICAL VIA [facility] Time Seen by Provider: 01/27/20 19:30 - History of Present Illness INITIAL COMMENTS - FREE TEXT/NARRATIVE: This is a 49-year-old who presents after a possible seizure. He is well-known to this emergency department for alcohol use disorder as well as seizures which have historically been attributed to a psychiatric etiology. He was seen earlier in her apartment today for intoxication and asking to go to acute rehab. He was therefore sent to [place]. He is at [place] this evening when he was treated for withdrawal Valium, was in eating his dinner when he collapsed to the floor and was noted by staff to have seizure-like activity. Supposedly he had up to 8 seizures. When EMS arrived the patient was not postictal. He denies any tongue biting or urination. He is uncertain what happened. - Related Data Allergies Allergy/AdvReac Type Severity Reaction Status Date / Time Penicillins Allergy Hives Verified 01/27/20 14:42 erythromycin base AdvReac Nausea Verified 01/27/20 14:42 Home Meds: Home Meds Metoprolol Tartrate [Lopressor] 25 mg PO DAILY 03/29/14 [History] Prazosin HCl [Prazosin] 5 mg PO BEDTIME 11/05/16 [History] traZODone HCl [Trazodone HCl] 50 mg PO BEDTIME 11/05/16 [History] Aspirin [Low Dose Aspirin EC] 81 mg PO DAILY 01/07/20 [History] Dextroamphetamine/Amphetamine [Adderall 20 mg Tablet] 1 tab PO DAILY 01/07/20 [ History] Disulfiram 250 mg PO BID 01/07/20 [History] FLUoxetine HCl [Prozac] 40 mg PO DAILY 01/07/20 [History] Naltrexone 50 mg PO DAILY 01/07/20 [History] QUEtiapine [SEROquel] 25 mg PO BEDTIME 01/07/20 [History] Tamsulosin HCl [Flomax] 0.4 mg PO DAILY 01/07/20 [History] Ciprofloxacin HCl [Cipro] 500 mg PO BID #10 tablet 01/23/20 [Rx] LORazepam [Ativan] 1 mg PO Q4H PRN #10 tablet 01/23/20 [Rx] Pantoprazole [ProTONIX] 40 mg PO DAILY #30 tab.cr 01/23/20 [Rx] metroNIDAZOLE [Flagyl] 500 mg PO Q8H #15 tab 01/23/20 [Rx] Past Medical History HEENT History: Reports: Impaired Vision Cardiovascular History: Reports: Arrhythmia, CAD, Hypertension, [place], Other (See Below) Other Cardiovascular History: svt Respiratory History: Reports: Bronchitis, Recurrent Gastrointestinal History: Reports: Diverticulosis Genitourinary History: Reports: Prostate Disorder, Renal Calculus Musculoskeletal History: Reports: Fracture Other Musculoskeletal History: dislocated shoulder Neurological History: Reports: Concussion Psychiatric History: Reports: Addiction, Anxiety, Depression, Panic Attack, Psych Hospitalization(s), PTSD, Suicide Attempt Other Psychiatric History: Major depressive disorder Endocrine/Metabolic History: Reports: Diabetes, Type II, Other (See Below) Other Endocrine/Metabolic History: type II diabetes history Hematologic History: Reports: B12 Deficiency, Folic Acid Immunologic History: Reports: Other (See Below) Other Immunologic History: anaplasmosis, lyme disease Dermatologic History: Reports: Eczema - Infectious Disease History Infectious Disease History: Reports: Chicken Pox - Past Surgical History GI Surgical History: Reports: Bariatric Procedure, Cholecystectomy, Colonoscopy Musculoskeletal Surgical History: Reports: Arthroscopic Knee Social & Family History - Caffeine Use Caffeine Use: Reports: Coffee - Living Situation & Occupation Living situation: Reports: with Significant Other (reports is getting divorce from in [place], living with his son.) Occupation: Employed ED ROS GENERAL - Review of Systems Review Of Systems: See Below Constitutional: Reports: No Symptoms HEENT: Reports: No Symptoms Respiratory: Reports: No Symptoms Cardiovascular: Reports: No Symptoms Endocrine: Reports: No Symptoms GI/Abdominal: Reports: No Symptoms : Reports: No Symptoms Musculoskeletal: Reports: No Symptoms Skin: Reports: No Symptoms Neurological: Reports: Seizure Psychiatric: Reports: No Symptoms Hematologic/Lymphatic: Reports: No Symptoms Immunologic: Reports: No Symptoms ED EXAM, BEHAVIORAL HEALTH - Physical Exam Exam: See Below Exam Limited By: No Limitations General Appearance: Alert, No Apparent Distress Ears: Normal External Exam Nose: Normal Inspection Throat/Mouth: Normal Inspection, Other (No tongue biting) Head: Normocephalic, Other (Old abrasions on the right scalp.) Neck: Normal Inspection, Full Range of Motion Respiratory/Chest: Lungs Clear Cardiovascular: No Murmur, Tachycardia GI/Abdominal: Soft, Non-Tender Back Exam: Normal Inspection Extremities: Normal Inspection Neurological: Alert, Normal Mood/Affect, No Motor/Sensory Deficits, Oriented x 3 Psychiatric: Alert, Normal Affect Skin Exam: Warm, Dry COURSE, BEHAVIORAL HEALTH COMP - Course Vital Signs: Last Vital Signs Temp 36.3 C 01/27/20 19:33 Pulse 145 H 01/27/20 19:33 Resp 19 01/27/20 19:33 BP 130/99 H 01/27/20 19:33 Pulse Ox 94 L 01/27/20 19:33 Orders, Labs, Meds: Medications Discontinued Medications Generic Name Dose Route Start Last Admin Trade Name Brook PRN Reason Stop Dose Admin Lorazepam 2 mg 01/27/20 19:51 01/27/20 19:58 Ativan PO 01/27/20 19:52 2 mg ONETIME ONE Administration Re-Assessment/Re-Exam: 49-year-old presents with concerns of possible seizure. He is well-known to our ED for alcohol use disorder. He has a history of non- epileptiform seizures. He was sent to [facility] today for detox, unfortunately had another seizure- like episode which resulted him being transferred back to the ER. On exam he is found to be tachycardic and mildly tremulous. My suspicion that he had a true seizure is very low given his history. He had no postictal period. No tongue biting, no incontinence. We treated him for his withdrawal symptoms with 2 mg of oral Ativan. We called back to [facility] and they are not able to reaccept him for admission this evening. The patient has a safe place to go. I do not see a medical indication to admit him to the hospital. He is going to call [facility] in the a.m. to discuss readmission. Discharged. Departure - Departure Time of Disposition: 19:55 Disposition: Home, Self-Care 01 Clinical Impression: Alcohol abuse - Discharge Information *PRESCRIPTION DRUG MONITORING PROGRAM REVIEWED*: No *COPY OF PRESCRIPTION DRUG MONITORING REPORT IN PATIENT LIZA: No Instructions: Alcohol Use Disorder Referrals: PCP,None [Primary Care Provider] - Forms: ED Department Discharge Additional Instructions: We agree that you need treatment for your alcohol use. You should contact [facility] tomorrow morning to discuss readmission. As you are likely aware, your risk of seizure and withdrawal is increased if you stop drinking suddenly. Sepsis Event Note (ED) - Evaluation Sepsis Screening Result: No Definite Risk - Focused Exam Vital Signs: Vital Signs Temp Pulse Resp BP Pulse Ox 01/27/20 19:33 36.3 C 145 H 19 130/99 H 94 L 01/27/20 19:30 36.3 C 145 H 19 130/99 H 94 L
== END 2020-01-27 20:38 | disposition home or self-care (01) ==
LOC: JP.ED 19:21
DX: F10.10 Alcohol abuse, uncomplicated (principal); I25.10 Atherosclerotic heart disease of native coronary artery without angina pectoris; I10 Essential (primary) hypertension; I25.2 Old myocardial infarction; F41.9 Anxiety disorder, unspecified; F32.9 Major depressive disorder, single episode, unspecified; E11.9 Type 2 diabetes mellitus without complications; Z79.82 Long term (current) use of aspirin; Z79.899 Other long term (current) drug therapy; Z88.1 Allergy status to other antibiotic agents; Z88.0 Allergy status to penicillin
CPT/HCPCS: 99284; A9270

== ENCOUNTER 2020-01-31 07:57 | Emergency (ER) | payer BC ==
--- NOTE | 2020-01-31 08:46 | EDM.PDOCBH ---
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 He does admit to me that he would like to go to treatment he is currently under a lot of stress because his divorce was recently finalized about 4 days ago. - Related Data Allergies Allergy/AdvReac Type Severity Reaction Status Date / Time Penicillins Allergy Hives Verified 01/31/20 08:00 erythromycin base AdvReac Nausea Verified 01/31/20 08:00 Home Meds: Home Meds Metoprolol Tartrate [Lopressor] 25 mg PO DAILY 03/29/14 [History] Prazosin HCl [Prazosin] 5 mg PO BEDTIME 11/05/16 [History] traZODone HCl [Trazodone HCl] 50 mg PO BEDTIME 11/05/16 [History] Aspirin [Low Dose Aspirin EC] 81 mg PO DAILY 01/07/20 [History] Dextroamphetamine/Amphetamine [Adderall 20 mg Tablet] 1 tab PO DAILY 01/07/20 [History] Disulfiram 250 mg PO BID 01/07/20 [History] FLUoxetine HCl [Prozac] 40 mg PO DAILY 01/07/20 [History] Naltrexone 50 mg PO DAILY 01/07/20 [History] QUEtiapine [SEROquel] 25 mg PO BEDTIME 01/07/20 [History] Tamsulosin HCl [Flomax] 0.4 mg PO DAILY 01/07/20 [History] Ciprofloxacin HCl [Cipro] 500 mg PO BID #10 tablet 01/23/20 [Rx] LORazepam [Ativan] 1 mg PO Q4H PRN #10 tablet 01/23/20 [Rx] Pantoprazole [ProTONIX] 40 mg PO DAILY #30 tab.cr 01/23/20 [Rx] metroNIDAZOLE [Flagyl] 500 mg PO Q8H #15 tab 01/23/20 [Rx] Past Medical History HEENT History: Reports: Impaired Vision Cardiovascular History: Reports: Arrhythmia, CAD, Hypertension, [place], Other (See Below) Other Cardiovascular History: svt Respiratory History: Reports: Bronchitis, Recurrent Gastrointestinal History: Reports: Diverticulosis Genitourinary History: Reports: Prostate Disorder, Renal Calculus Musculoskeletal History: Reports: Fracture Other Musculoskeletal History: dislocated shoulder Neurological History: Reports: Concussion Psychiatric History: Reports: Addiction, Anxiety, Depression, Panic Attack, Psych Hospitalization(s), PTSD, Suicide Attempt Other Psychiatric History: Major depressive disorder Endocrine/Metabolic History: Reports: Diabetes, Type II, Other (See Below) Other Endocrine/Metabolic History: type II diabetes history Hematologic History: Reports: B12 Deficiency, Folic Acid Immunologic History: Reports: Other (See Below) Other Immunologic History: anaplasmosis, lyme disease Dermatologic History: Reports: Eczema - Infectious Disease History Infectious Disease History: Reports: Chicken Pox - Past Surgical History GI Surgical History: Reports: Bariatric Procedure, Cholecystectomy, Colonoscopy Musculoskeletal Surgical History: Reports: Arthroscopic Knee Social & Family History - Tobacco Use Smoking Status *Q: Current Some Day Smoker Years of Tobacco use: 10 Packs/Tins Daily: 0.1 - Caffeine Use Caffeine Use: Reports: Coffee - Alcohol Use Days Per Week of Alcohol Use: 7 Number of Drinks Per Day: 10 Total Drinks Per Week: 70 Date of Last Drink: 01/31/20 Time of Last Drink: 07:00 - Recreational Drug Use Recreational Drug Use: No - Living Situation & Occupation Living situation: Reports: with Significant Other (reports is getting divorce from in [place], living with his son.) Occupation: Employed ED ROS GENERAL - Review of Systems Review Of Systems: Unable To Obtain Reason Not Obtained: Intoxicated ED EXAM, BEHAVIORAL HEALTH - Physical Exam Exam: See Below Exam Limited By: Intoxication General Appearance: Alert, No Apparent Distress Eye Exam: Bilateral Eye: Normal Inspection Head: Facial Tenderness, Other (Bruising around both eyes recent CT scan was 4 days ago) Neck: Normal Inspection, Supple, Non-Tender, Full Range of Motion Respiratory/Chest: No Respiratory Distress, Lungs Clear, Normal Breath Sounds, No Accessory Muscle Use, Chest Non-Tender Cardiovascular: Regular Rate, Rhythm, No Murmur GI/Abdominal: Soft, Non-Tender Extremities: No Pedal Edema, Other (Frontal bruising on both knees) COURSE, BEHAVIORAL HEALTH COMP - Course Vital Signs: Last Vital Signs Temp 97.5 F 01/31/20 08:26 Pulse 106 H 01/31/20 08:26 Resp 14 01/31/20 08:26 BP 121/78 01/31/20 08:26 Pulse Ox 97 01/31/20 08:26 Orders, Labs, Meds: Active Orders 24 hr Category Date Time Status EKG Documentation Completion [RC] ASDIRECTED Care 01/31/20 11:32 Active ETOH [ETHANOL BLOOD MEDICAL] [CHEM] Stat Lab 01/31/20 13:27 Received INR,PT,PROTHROMBIN TIME [COAG] Urgent Lab 01/31/20 13:54 Received TROPONIN I [CHEM] Urgent Lab 01/31/20 13:27 Received EKG 12 Lead [EK] Stat Ther 01/31/20 11:32 Ordered Laboratory Tests 01/31/20 01/31/20 01/31/20 Range/Units 08:43 08:52 08:52 WBC 12.5 H (4.5-11.0) K/uL RBC 5.25 (4.30-5.90) M/uL Hgb 15.9 H (12.0-15.0) g/dL Hct 44.4 (40.0-54.0) % MCV 85 (80-98) fL MCH 30 (27-31) pg MCHC 36 (32-36) % Plt Count 281 (150-400) K/uL Neut % (Auto) 75 H (36-66) % Lymph % (Auto) 16 L (24-44) % Sullivan % (Auto) 9 H (2-6) % Eos % (Auto) 0 L (2-4) % Baso % (Auto) 1 (0-1) % Sodium 141 (140-148) mmol/L Potassium 3.3 L (3.6-5.2) mmol/L Chloride 99 L (100-108) mmol/L Carbon Dioxide 24 (21-32) mmol/L Anion Gap 21.3 H (5.0-14.0) mmol/L BUN 10 (7-18) mg/dL Creatinine 0.8 (0.8-1.3) mg/dL Est Cr Clr Drug Dosing 103.01 mL/min Estimated GFR (MDRD) > 60 (>60) Glucose 127 H (74-106) mg/dL Calcium 7.6 L (8.5-10.1) mg/dL Total Bilirubin 1.4 H D (0.2-1.0) mg/dL AST 115 H (15-37) U/L ALT 140 H (12-78) U/L Alkaline Phosphatase 148 H (46-116) U/L Troponin I (0.000-0.056) ng/mL Total Protein 6.0 L (6.4-8.2) g/dL Albumin 3.4 (3.4-5.0) g/dL Globulin 2.6 (2.3-3.5) g/dL Albumin/Globulin Ratio 1.3 (1.2-2.2) Lipase (73-393) U/L Urine Opiates Screen Negative (NEGATIVE) Ur Oxycodone Screen Negative (NEGATIVE) Urine Methadone Screen Negative (NEGATIVE) Ur Propoxyphene Screen Negative (NEGATIVE) Ur Barbiturates Screen Negative (NEGATIVE) Ur Tricyclics Screen Negative (NEGATIVE) Ur Phencyclidine Scrn Negative (NEGATIVE) Ur Amphetamine Screen Negative (NEGATIVE) U Methamphetamines Scrn Negative (NEGATIVE) Urine MDMA Screen Negative (NEGATIVE) U Benzodiazepines Scrn Presumptive positive H (NEGATIVE) U Cocaine Metab Screen Negative (NEGATIVE) U Marijuana (THC) Screen Negative (NEGATIVE) Ethyl Alcohol mg/dL 01/31/20 01/31/20 01/31/20 Range/Units 08:52 11:32 12:26 WBC (4.5-11.0) K/uL RBC (4.30-5.90) M/uL Hgb (12.0-15.0) g/dL Hct (40.0-54.0) % MCV (80-98) fL MCH (27-31) pg MCHC (32-36) % Plt Count (150-400) K/uL Neut % (Auto) (36-66) % Lymph % (Auto) (24-44) % Sullivan % (Auto) (2-6) % Eos % (Auto) (2-4) % Baso % (Auto) (0-1) % Sodium (140-148) mmol/L Potassium (3.6-5.2) mmol/L Chloride (100-108) mmol/L Carbon Dioxide (21-32) mmol/L Anion Gap (5.0-14.0) mmol/L BUN (7-18) mg/dL Creatinine (0.8-1.3) mg/dL Est Cr Clr Drug Dosing mL/min Estimated GFR (MDRD) (>60) Glucose (74-106) mg/dL Calcium (8.5-10.1) mg/dL Total Bilirubin (0.2-1.0) mg/dL AST (15-37) U/L ALT (12-78) U/L Alkaline Phosphatase (46-116) U/L Troponin I < 0.017 (0.000-0.056) ng/mL Total Protein (6.4-8.2) g/dL Albumin (3.4-5.0) g/dL Globulin (2.3-3.5) g/dL Albumin/Globulin Ratio (1.2-2.2) Lipase 540 H (73-393) U/L Urine Opiates Screen (NEGATIVE) Ur Oxycodone Screen (NEGATIVE) Urine Methadone Screen (NEGATIVE) Ur Propoxyphene Screen (NEGATIVE) Ur Barbiturates Screen (NEGATIVE) Ur Tricyclics Screen (NEGATIVE) Ur Phencyclidine Scrn (NEGATIVE) Ur Amphetamine Screen (NEGATIVE) U Methamphetamines Scrn (NEGATIVE) Urine MDMA Screen (NEGATIVE) U Benzodiazepines Scrn (NEGATIVE) U Cocaine Metab Screen (NEGATIVE) U Marijuana (THC) Screen (NEGATIVE) Ethyl Alcohol 404 mg/dL Medications Discontinued Medications Generic Name Dose Route Start Last Admin Trade Name Freq PRN Reason Stop Dose Admin Aspirin 324 mg 01/31/20 12:21 01/31/20 12:31 Aspirin PO 01/31/20 12:22 324 mg ONETIME ONE Administration Gabapentin 400 mg 01/31/20 10:15 01/31/20 10:47 Neurontin PO 01/31/20 10:16 400 mg NOW STA Administration Multivitamins/Minerals 10 ml/ 1,016.2 mls @ 500 mls/hr 01/31/20 09:22 01/31/20 10:02 Thiamine HCl 200 mg/ Folic IV 01/31/20 11:23 500 mls/hr Acid 1 mg/ Magnesium Sulfate 2 ONETIME ONE Administration gm/ Dextrose/Lactated Ringer' s Levetiracetam 1,000 mg/ Sodium 110 mls @ 400 mls/hr 01/31/20 13:49 Chloride IV 01/31/20 14:03 ONETIME ONE Ondansetron HCl 4 mg 06/19/20 09:17 01/31/20 09:22 Zofran IVPUSH 01/31/20 09:18 4 mg ONETIME ONE Administration Prochlorperazine Edisylate 5 mg 01/31/20 10:15 01/31/20 10:47 Compazine IVPUSH 01/31/20 10:16 5 mg ONETIME ONE Administration Departure - Departure Time of Disposition: 14:06 Disposition: DC/Tfer to Acute Hospital 02 Condition: Fair Clinical Impression: Subdural hematoma, acute - Discharge Information Referrals: PCP,None [Primary Care Provider] - Forms: ED Department Discharge Sepsis Event Note (ED) - Evaluation Sepsis Screening Result: No Definite Risk - Focused Exam Vital Signs: Vital Signs Temp Pulse Resp BP Pulse Ox 01/31/20 08:26 97.5 F 106 H 14 121/78 97 - My Orders Last 24 Hours: My Active Orders 01/31/20 11:32 EKG Documentation Completion [RC] ASDIRECTED EKG 12 Lead [EK] Stat 01/31/20 13:27 ETOH [ETHANOL BLOOD MEDICAL] [CHEM] Stat TROPONIN I [CHEM] Urgent 01/31/20 13:54 INR,PT,PROTHROMBIN TIME [COAG] Urgent - Assessment/Plan Last 24 Hours: My Active Orders 01/31/20 11:32 EKG Documentation Completion [RC] ASDIRECTED EKG 12 Lead [EK] Stat 01/31/20 13:27 ETOH [ETHANOL BLOOD MEDICAL] [CHEM] Stat TROPONIN I [CHEM] Urgent 01/31/20 13:54 INR,PT,PROTHROMBIN TIME [COAG] Urgent Plan: Assessment Acuity = acute Site and laterality = right-sided subdural hematoma complicating the gentleman with severe intoxication as well as a history of coronary artery disease Etiology = secondary to fall Manifestations = none Location of injury = Home Lab values = WBC elevated 12.5 consistent leukocytosis potassium low at 3.3 consistent hypokalemia calcium low at 7.6 consistent hypocalcemia total bilirubin elevated 1.4 consistent with hyperbilirubinemia AST elevated 115 ALT 140 consistent with elevated liver enzymes troponin was negative lipase slightly elevated 540 urine drug screen positive for benzodiazepines alcohol is 404 CT scan of the head describes a subdural above CT scan of the maxillofacial bones and neck was negative EKG demonstrates a sinus rhythm no ST elevations or depressions appreciated Plan Thus far he has been given a banana bag, 1 g Keppra IV, 400 mg of gabapentin 5 mg Compazine 4 mg Zofran, call discussed case with Dr. Robbins neurosurgeon at [facility] at 1340 recommend to transfer the patient to [facility], next talked with Dr. Vickers emergency room physician [facility] 1350 kindly except the patient in transport will be transported via EMS ground This note was dictated using [employer] voice recognition software please call with any questions on syntax or grammar.
[2020-01-31] MEDS ORDERED: Ondansetron 4 MG/2 ML SDV IVPUSH ONE (09:17)
[2020-01-31] MEDS ORDERED: MVI, Adult with Vitamin K 10 ML, Thiamine 200 MG, Folic Acid 1 MG, Magnesium Sulfate 2 ... IV ONE ×5 (09:22)
[2020-01-31] MEDS ORDERED: Prochlorperazine 10 MG/2 ML SDV IVPUSH ONE (10:15)
[2020-01-31] MEDS ORDERED: Gabapentin 400 MG Cap PO STA (10:15)
[2020-01-31] MEDS ORDERED: Aspirin 81 MG Tab.Chew PO ONE (12:21)
--- NOTE | 2020-01-31 13:11 | CT ---
Head wo Cont CLINICAL HISTORY: Trauma, pain COMPARISON: 01/26/2020 TECHNIQUE: Transverse scans were obtained from the base of the skull through the vertex without IV contrast on a multislice, multidetector CT scanner. Auto dosage reduction and iterative reconstruction techniques employed. FINDINGS: There is hyperintense blood in the subdural space along the right the Gail hemisphere. There is also peripheral seen blood in the sagittal fissure. There is also blood on the tentorium. There is also blood on the tentorium. There is some right-sided mass effect with the 4 to 5 mm shift of midline structures to the left. The calvarium appears intact. IMPRESSION: Acute right sided and parafalcine subdural hematoma with some mass effect and shift of the midline to the left.
--- NOTE | 2020-01-31 13:15 | CT ---
Cervical Spine wo Cont CLINICAL HISTORY: Trauma, pain TECHNIQUE: Multiple CT sections were taken through the cervical spine in the transaxial projection. Coronal and sagittal views were reconstructed. Images were viewed at bone as well as soft tissue windows on a digital workstation. Scribed os FINDINGS: Cervical vertebral body heights are maintained. Alignment is maintained. No fractures identified. Prevertebral soft tissues are unremarkable. The there is no encroachment on the neural structures. Impression: No fracture or dislocation
--- NOTE | 2020-01-31 13:18 | CR ---
CHEST: Portable 01/31/2020 at 1157 CLINICAL HISTORY:Pain COMPARISON:01/29/2016 FINDINGS: The heart size, pulmonary vascularity and hilar structures are normal. No infiltrate effusion or pneumothorax is seen. IMPRESSION: No acute cardiopulmonary process.
--- NOTE | 2020-01-31 13:22 | CT ---
Max Facial Sinus wo Cont : TECHNIQUE: Axial tomographic images were obtained from the upper calvarium through the upper neck, pre- and without contrast enhancement. Auto dosage reduction and iterative reconstruction techniques employed. CLINICAL HISTORY: Trauma FINDINGS: Nasal bones and anterior nasal spine is intact. The nasal septum is midline. Bony orbits are intact. Segmented arches are intact. Mandible is free of fracture. There is some dental caries. There is some periapical lucency around the right first and the posterior molars consistent with periodontal disease. IMPRESSION: No fracture Right subdural hematoma described on head CT Dental caries and periodontal disease on the right
[2020-01-31] MEDS ORDERED: levETIRAcetam 1,000 MG in Sodium Chloride 0.9% 100 ML IV ONE (13:49)
[2020-01-31 16:44] VITALS: BP 110/62; PULSE 105
== END 2020-01-31 16:57 ==
LOC: JP.ED 07:57
DX: S06.5X9A Traumatic subdural hemorrhage with loss of consciousness of unspecified duration, initial encounter (principal); S80.02XA Contusion of left knee, initial encounter; S80.01XA Contusion of right knee, initial encounter; F10.129 Alcohol abuse with intoxication, unspecified; Y90.8 Blood alcohol level of 240 mg/100 ml or more; I25.10 Atherosclerotic heart disease of native coronary artery without angina pectoris; F41.9 Anxiety disorder, unspecified; F32.9 Major depressive disorder, single episode, unspecified; E11.9 Type 2 diabetes mellitus without complications; I10 Essential (primary) hypertension; I25.2 Old myocardial infarction; F17.210 Nicotine dependence, cigarettes, uncomplicated; Z88.0 Allergy status to penicillin; Z88.1 Allergy status to other antibiotic agents; Z79.82 Long term (current) use of aspirin; Z79.899 Other long term (current) drug therapy; W19.XXXA Unspecified fall, initial encounter
CPT/HCPCS: 36415; 70450; 70486; 71045; 72125; 80053; 80305; 80307; 83690; 84484; 85025; 85610; 93005; 96365; 96375; 99285; A9270; J0780; J1953; J2405; J3411; J3475; J7050; J7121; J3490

== ENCOUNTER 2020-02-10 17:25 | Emergency (ER) | payer BC ==
--- NOTE | 2020-02-10 17:52 | EDM.PDOC ---
ED HPI GENERAL MEDICAL PROBLEM - General Chief Complaint: General Stated Complaint: SUBDURAL HEMATOMA Time Seen by Provider: 02/10/20 17:35 - History of Present Illness INITIAL COMMENTS - FREE TEXT/NARRATIVE: 49-year-old male with a history of recent subdural hematoma on 01/31/20 and hospitalized at [facility]. He was discharged home 3 days ago and his mother has been staying with him. She provides his history. He has been confused and sleepy today. He has not been drinking alcohol or using any street drugs since discharge. There has been no fever. He has been vomiting daily since being home. - Related Data Allergies Allergy/AdvReac Type Severity Reaction Status Date / Time Penicillins Allergy Hives Verified 01/31/20 08:00 erythromycin base AdvReac Nausea Verified 01/31/20 08:00 Home Meds: Home Meds Metoprolol Tartrate [Lopressor] 12.5 mg PO DAILY 03/29/14 [History] Prazosin HCl [Prazosin] 5 mg PO BEDTIME 11/05/16 [History] traZODone HCl [Trazodone HCl] 50 mg PO BEDTIME 11/05/16 [History] Dextroamphetamine/Amphetamine [Adderall 20 mg Tablet] 1 tab PO DAILY 01/07/20 [History] Disulfiram 250 mg PO BID 01/07/20 [History] FLUoxetine HCl [Prozac] 40 mg PO DAILY 01/07/20 [History] Naltrexone 50 mg PO DAILY 01/07/20 [History] QUEtiapine [SEROquel] 25 mg PO BEDTIME 01/07/20 [History] Tamsulosin HCl [Flomax] 0.4 mg PO DAILY 01/07/20 [History] Pantoprazole [ProTONIX] 40 mg PO DAILY #30 tab.cr 01/23/20 [Rx] levETIRAcetam [Keppra] 500 mg PO ASDIRECTED 02/10/20 [History] oxyCODONE 5 mg PO Q6H PRN 02/10/20 [History] Past Medical History HEENT History: Reports: Impaired Vision Cardiovascular History: Reports: Arrhythmia, CAD, Hypertension, [place], Other (See Below) Other Cardiovascular History: svt Respiratory History: Reports: Bronchitis, Recurrent Gastrointestinal History: Reports: Diverticulosis Genitourinary History: Reports: Prostate Disorder, Renal Calculus Musculoskeletal History: Reports: Fracture Other Musculoskeletal History: dislocated shoulder Neurological History: Reports: Concussion Psychiatric History: Reports: Addiction, Anxiety, Depression, Panic Attack, Psych Hospitalization(s), PTSD, Suicide Attempt Other Psychiatric History: Major depressive disorder Endocrine/Metabolic History: Reports: Diabetes, Type II, Other (See Below) Other Endocrine/Metabolic History: type II diabetes history Hematologic History: Reports: B12 Deficiency, Folic Acid Immunologic History: Reports: Other (See Below) Other Immunologic History: anaplasmosis, lyme disease Dermatologic History: Reports: Eczema - Infectious Disease History Infectious Disease History: Reports: Chicken Pox - Past Surgical History GI Surgical History: Reports: Bariatric Procedure, Cholecystectomy, Colonoscopy Musculoskeletal Surgical History: Reports: Arthroscopic Knee Social & Family History - Tobacco Use Smoking Status *Q: Unknown Ever Smoked - Caffeine Use Caffeine Use: Reports: None - Recreational Drug Use Recreational Drug Use: No - Living Situation & Occupation Living situation: Reports: with Significant Other (reports is getting divorce from in [place], living with his son.) Occupation: Employed ED ROS GENERAL - Review of Systems Review Of Systems: Unable To Obtain Reason Not Obtained: altered mental status Constitutional: Denies: Fever, Chills ED EXAM, GENERAL - Physical Exam Exam: See Below Exam Limited By: Altered Mental Status General Appearance: Other (The patient has spontaneous eye opening. He has a GCS of E4 V5 and M6. Easily arousable.) Eye Exam: Bilateral Eye: Other (PERRLA, pupil size is normal) Ear Exam: Bilateral Ear: Auricle Normal, Canal Normal, TM normal Nose: Normal Inspection Throat/Mouth: Normal Inspection, Normal Oropharynx Neck: Normal Inspection Respiratory/Chest: Lungs Clear, Normal Breath Sounds Cardiovascular: Regular Rate, Rhythm GI/Abdominal: Normal Bowel Sounds, Soft, Non-Tender Back Exam: Normal Inspection Extremities: Normal Inspection, Non-Tender Neurological: Alert, Other (He is able to give his birthdate and age. He thinks he is in [place]. ) Skin Exam: Warm, Dry Course - Vital Signs Text/Narrative:: This patient who was recently hospitalized at [facility] for a subdural hematoma presents to the ED today with confusion, sleepiness and vomiting. His mother reports he has had no fever or new injury. He has not been drinking alcohol or using street drugs. He was relatively bradycardic and hypertensive on admission with a normal GCS so a head CT without contrast was ordered and reported by the radiologist as an acute on chronic subdural hematoma with a midline shift of 1.8 cm. Neurosurgery at [facility] was consulted. Dr Mahoney, the neurosurgeon was consulted and accepts the patient for admission and treatment. The patient is being transferred there by [facility] link helicopter. Last Recorded V/S: Last Vital Signs Temp 36.3 C 02/10/20 17:33 Pulse 46 L 02/10/20 18:37 Resp 12 02/10/20 18:37 BP 142/93 H 02/10/20 18:37 Pulse Ox 97 02/10/20 18:37 - Orders/Labs/Meds Orders: Active Orders 24 hr Category Date Time Status EKG Documentation Completion [RC] ASDIRECTED Care 02/10/20 17:49 Active DRUG SCREEN, URINE [URCHEM] Stat Lab 02/10/20 17:48 Ordered URINALYSIS W/MICROSCOPIC [UA W/MICROSCOPIC] [URIN] Stat Lab 02/10/20 17:48 Ordered Sodium Chloride 0.9% [Normal Saline] 1,000 ml Med 02/10/20 18:00 Active IV ASDIRECTED EKG 12 Lead [EK] Stat Ther 02/10/20 17:49 Ordered Medication Orders Sodium Chloride (Normal Saline) 1,000 mls @ 1,000 mls/hr IV ASDIRECTED CAREY Last Admin: 02/10/20 18:52 Dose: 1,000 mls/hr Documented by: [id number] Labs: Laboratory Tests 02/10/20 02/10/20 02/10/20 Range/Units 17:55 17:55 17:55 WBC 6.5 (4.5-11.0) K/uL RBC 4.77 (4.30-5.90) M/uL Hgb 14.2 (12.0-15.0) g/dL Hct 41.4 (40.0-54.0) % MCV 87 (80-98) fL MCH 30 (27-31) pg MCHC 34 (32-36) % Plt Count 430 H (150-400) K/uL Neut % (Auto) 76 H (36-66) % Lymph % (Auto) 11 L (24-44) % Tompkins % (Auto) 13 H (2-6) % Eos % (Auto) 0 L (2-4) % Baso % (Auto) 1 (0-1) % Sodium 140 (140-148) mmol/L Potassium 3.3 L (3.6-5.2) mmol/L Chloride 102 (100-108) mmol/L Carbon Dioxide 26 (21-32) mmol/L Anion Gap 15.3 H (5.0-14.0) mmol/L BUN 7 (7-18) mg/dL Creatinine 0.8 (0.8-1.3) mg/dL Est Cr Clr Drug Dosing 103.53 mL/min Estimated GFR (MDRD) > 60 (>60) Glucose 233 H (74-106) mg/dL Calcium 8.3 L (8.5-10.1) mg/dL Total Bilirubin 0.6 D (0.2-1.0) mg/dL AST 25 D (15-37) U/L ALT 49 (12-78) U/L Alkaline Phosphatase 125 H (46-116) U/L Total Protein 6.0 L (6.4-8.2) g/dL Albumin 3.1 L (3.4-5.0) g/dL Globulin 2.9 (2.3-3.5) g/dL Albumin/Globulin Ratio 1.1 L (1.2-2.2) Ethyl Alcohol < 3 mg/dL Meds: Medications Generic Name Dose Route Start Last Admin Trade Name Freq PRN Reason Stop Dose Admin Sodium Chloride 1,000 mls @ 1,000 mls/hr 02/10/20 18:00 02/10/20 18:52 Normal Saline IV 1,000 mls/hr ASDIRECTED CAREY Administration Departure - Departure Time of Disposition: 19:25 Disposition: DC/Tfer to Acute Hospital 02 Condition: Fair, Poor Clinical Impression: Subdural hematoma - Discharge Information Referrals: Baljeet Lucio MD [Primary Care Provider] - Forms: ED Department Discharge Additional Instructions: The patient is transferred by air to [place]. Sepsis Event Note (ED) - Evaluation Sepsis Screening Result: No Definite Risk - Focused Exam Vital Signs: Vital Signs Temp Pulse Resp BP Pulse Ox 02/10/20 18:37 46 L 12 142/93 H 97 02/10/20 18:22 43 L 16 170/98 H 97 02/10/20 17:52 45 L 20 167/94 H 95 02/10/20 17:37 46 L 24 H 147/100 H 95 02/10/20 17:33 36.3 C 44 L 24 H 153/101 H 95 02/10/20 17:28 36.3 C 46 L 23 H 166/93 H 95 - My Orders Last 24 Hours: My Active Orders 02/10/20 17:48 DRUG SCREEN, URINE [URCHEM] Stat URINALYSIS W/MICROSCOPIC [UA W/MICROSCOPIC] [URIN] Stat 02/10/20 17:49 EKG Documentation Completion [RC] ASDIRECTED EKG 12 Lead [EK] Stat 02/10/20 18:00 Sodium Chloride 0.9% [Normal Saline] 1,000 ml IV ASDIRECTED - Assessment/Plan Last 24 Hours: My Active Orders 02/10/20 17:48 DRUG SCREEN, URINE [URCHEM] Stat URINALYSIS W/MICROSCOPIC [UA W/MICROSCOPIC] [URIN] Stat 02/10/20 17:49 EKG Documentation Completion [RC] ASDIRECTED EKG 12 Lead [EK] Stat 02/10/20 18:00 Sodium Chloride 0.9% [Normal Saline] 1,000 ml IV ASDIRECTED
[2020-02-10] MEDS ORDERED: Sodium Chloride 0.9% 1,000 ML IV SCH (18:00)
--- NOTE | 2020-02-10 19:04 | CRLCT ---
INDICATION: Confusion, history of acute subdural hematoma January 31, 2020 TECHNIQUE: Head CT without contrast. COMPARISON: January 31, 2020 FINDINGS/IMPRESSION: There is an acute on chronic right convexity subdural hematoma measuring 2.2 cm in maximum width. This causes midline shift to the left measuring 1.8 cm. There is trapping of the left lateral ventricle. No transtentorial herniation. Osseous structures are intact. Visualized paranasal sinuses and mastoid air cells are normally aerated. Findings discussed with ROSENDO Manzano at 6:59 p.m. on February 10, 2020. Please note that all CT scans at this facility use dose modulation, iterative reconstruction, and/or weight-based dosing when appropriate to reduce radiation dose to as low as reasonably achievable. Dictated by Katerine Chung MD @ Feb 10 2020 6:54PM Signed by Dr. Katerine Chung @ Feb 10 2020 7:02PM
[2020-02-10 19:28] VITALS: BP 155/86; PULSE 103
== END 2020-02-10 19:53 ==
LOC: JP.ED 17:25
DX: I62.00 Nontraumatic subdural hemorrhage, unspecified (principal); I25.10 Atherosclerotic heart disease of native coronary artery without angina pectoris; I10 Essential (primary) hypertension; I25.2 Old myocardial infarction; F41.9 Anxiety disorder, unspecified; F32.9 Major depressive disorder, single episode, unspecified; E11.9 Type 2 diabetes mellitus without complications; Z88.1 Allergy status to other antibiotic agents; Z88.0 Allergy status to penicillin; Z79.899 Other long term (current) drug therapy
CPT/HCPCS: 36415; 70450; 80053; 80305; 80307; 81001; 85025; 93005; 96360; 99285; J7030

== ENCOUNTER 2020-03-01 20:45 | Emergency (ER) | payer BC, OTHER, SELFPAY ==
[2020-03-01] MEDS ORDERED: Sodium Chloride 0.9% 10 ML Syringe FLUSH PRN (21:00)
--- NOTE | 2020-03-01 21:08 | EDM.PDOC ---
ED HPI GENERAL MEDICAL PROBLEM - General Chief Complaint: Headache Stated Complaint: MEDICAL VIA [facility] Time Seen by Provider: 03/01/20 21:06 Source of Information: Reports: Patient History Limitations: Reports: No Limitations - History of Present Illness INITIAL COMMENTS - FREE TEXT/NARRATIVE: pt has been drinking for the past 2 days. He was lying in bed and developed a lundberg dden onset of a severe rt sided headache. He has a past history of a subdural hematoma in the past few weeks He has a history of etoh abuse. Onset: Today, Sudden, Other ( The haeadache came on today. He thinks this is the worst headache of his lifwe. ) Duration: Hour(s): Location: Reports: Head, Generalized Associated Symptoms: Reports: No Other Symptoms - Related Data Allergies Allergy/AdvReac Type Severity Reaction Status Date / Time Penicillins Allergy Hives Verified 03/01/20 21:13 erythromycin base AdvReac Nausea Verified 03/01/20 21:13 Home Meds: Home Meds Metoprolol Tartrate [Lopressor] 12.5 mg PO DAILY 03/29/14 [History] traZODone HCl [Trazodone HCl] 50 mg PO BEDTIME 11/05/16 [History] Dextroamphetamine/Amphetamine [Adderall 20 mg Tablet] 1 tab PO DAILY 01/07/20 [History] FLUoxetine HCl [Prozac] 40 mg PO DAILY 01/07/20 [History] QUEtiapine [SEROquel] 25 mg PO BEDTIME 01/07/20 [History] Past Medical History HEENT History: Reports: Impaired Vision Cardiovascular History: Reports: Arrhythmia, CAD, Hypertension, AR, Other (See Below) Other Cardiovascular History: svt Respiratory History: Reports: Bronchitis, Recurrent Gastrointestinal History: Reports: Diverticulosis Genitourinary History: Reports: Prostate Disorder, Renal Calculus Musculoskeletal History: Reports: Fracture Other Musculoskeletal History: dislocated shoulder Neurological History: Reports: Concussion Psychiatric History: Reports: Addiction, Anxiety, Depression, Panic Attack, Psych Hospitalization(s), PTSD, Suicide Attempt Other Psychiatric History: Major depressive disorder Endocrine/Metabolic History: Reports: Diabetes, Type II, Other (See Below) Other Endocrine/Metabolic History: type II diabetes history Hematologic History: Reports: B12 Deficiency, Folic Acid Immunologic History: Reports: Other (See Below) Other Immunologic History: anaplasmosis, lyme disease Dermatologic History: Reports: Eczema - Infectious Disease History Infectious Disease History: Reports: Chicken Pox - Past Surgical History GI Surgical History: Reports: Bariatric Procedure, Cholecystectomy, Colonoscopy Musculoskeletal Surgical History: Reports: Arthroscopic Knee Social & Family History - Caffeine Use Caffeine Use: Reports: None - Living Situation & Occupation Living situation: Reports: with Significant Other (reports is getting divorce from in [place], living with his son.) Occupation: Employed ED ROS GENERAL - Review of Systems Review Of Systems: See Below Constitutional: Reports: Other (pt is intoxicated) HEENT: Reports: No Symptoms Respiratory: Reports: No Symptoms Cardiovascular: Reports: No Symptoms Endocrine: Reports: No Symptoms GI/Abdominal: Reports: No Symptoms Musculoskeletal: Reports: No Symptoms Skin: Reports: No Symptoms Neurological: Reports: Headache, Other (pt is intoxicated) Psychiatric: Reports: Anxiety, Other (pt is having a etoh problem. He has been binge drinking for several days. He usually withdraws when he stopped. ) - Physical Exam Exam: See Below Text/Narrative:: pt is intoxicated and complaining of marked rt sided headache. Exam Limited By: No Limitations General Appearance: Alert, Anxious, Moderate Distress, Other (pupils are equal and reactive. ) Ears: Normal TMs Nose: Normal Inspection Throat/Mouth: Normal Inspection Head Exam: Atraumatic, Other (pt did have a period of confusion) Neck: Normal Inspection Respiratory/Chest: No Respiratory Distress Cardiovascular: Regular Rate, Rhythm GI/Abdominal: Soft, Non-Tender (Male) Exam: Deferred Rectal (Males) Exam: Deferred Neuro Exam (Abbreviated): Alert, Oriented, Other (pt is intoxicated. ) Back Exam: Normal Inspection Extremities: Normal Inspection Psychiatric: Anxious Course - Vital Signs Last Recorded V/S: Last Vital Signs Temp 36.3 C 03/01/20 21:25 Pulse 100 03/01/20 21:25 Resp 14 03/01/20 21:25 BP 121/95 H 03/01/20 21:25 Pulse Ox 98 03/01/20 21:25 - Orders/Labs/Meds Orders: Active Orders 24 hr Category Date Time Status DRUG SCREEN, URINE [URCHEM] Stat Lab 03/01/20 20:49 Ordered UA W/MICROSCOPIC [URIN] Urgent Lab 03/01/20 20:49 Ordered LORazepam [Ativan] Med 03/02/20 00:23 Once 1 mg PO ONETIME ONE Sodium Chloride 0.9% [Normal Saline] 1,000 ml Med 03/01/20 21:45 Active IV ASDIRECTED Sodium Chloride 0.9% [Normal Saline] 1,000 ml Med 03/01/20 21:45 Active IV ASDIRECTED Sodium Chloride 0.9% [Saline Flush] Med 03/01/20 21:00 Active 10 ml FLUSH ASDIRECTED PRN Saline Lock Insert [OM.PC] Routine Oth 03/01/20 21:00 Ordered Medication Orders Sodium Chloride (Normal Saline) 1,000 mls @ 999 mls/hr IV ASDIRECTED CAREY Last Admin: 03/01/20 22:33 Dose: 999 mls/hr Documented by: TA Sodium Chloride (Normal Saline) 1,000 mls @ 999 mls/hr IV ASDIRECTED CAREY Last Admin: 03/01/20 23:20 Dose: 999 mls/hr Documented by: KESHA Lorazepam (Ativan) 1 mg PO ONETIME ONE Stop: 03/02/20 00:24 Sodium Chloride (Saline Flush) 10 ml FLUSH ASDIRECTED PRN PRN Reason: Keep Vein Open Labs: Laboratory Tests 03/01/20 03/01/20 03/01/20 Range/Units 21:01 21:01 21:01 WBC 11.9 H (4.5-11.0) K/uL RBC 5.06 (4.30-5.90) M/uL Hgb 15.4 H (12.0-15.0) g/dL Hct 44.8 (40.0-54.0) % MCV 89 (80-98) fL MCH 30 (27-31) pg MCHC 34 (32-36) % Plt Count 272 (150-400) K/uL Neut % (Auto) 71 H (36-66) % Lymph % (Auto) 20 L (24-44) % [place] % (Auto) 6 (2-6) % Eos % (Auto) 3 (2-4) % Baso % (Auto) 1 (0-1) % Sodium 150 H (140-148) mmol/L Potassium 4.1 (3.6-5.2) mmol/L Chloride 108 (100-108) mmol/L Carbon Dioxide 23 (21-32) mmol/L Anion Gap 23.1 H (5.0-14.0) mmol/L BUN 10 (7-18) mg/dL Creatinine 1.0 (0.8-1.3) mg/dL Est Cr Clr Drug Dosing TNP Estimated GFR (MDRD) > 60 (>60) Glucose 146 H (74-106) mg/dL Calcium 8.3 L (8.5-10.1) mg/dL Total Bilirubin 0.5 (0.2-1.0) mg/dL AST 39 H (15-37) U/L ALT 39 (12-78) U/L Alkaline Phosphatase 122 H (46-116) U/L Total Protein 6.4 (6.4-8.2) g/dL Albumin 3.3 L (3.4-5.0) g/dL Globulin 3.1 (2.3-3.5) g/dL Albumin/Globulin Ratio 1.1 L (1.2-2.2) Ethyl Alcohol 283 mg/dL Meds: Medications Generic Name Dose Route Start Last Admin Trade Name Brook PRN Reason Stop Dose Admin Sodium Chloride 1,000 mls @ 999 mls/hr 03/01/20 21:45 03/01/20 22:33 Normal Saline IV 999 mls/hr ASDIRECTED CAREY Administration Sodium Chloride 1,000 mls @ 999 mls/hr 03/01/20 21:45 03/01/20 23:20 Normal Saline IV 999 mls/hr ASDIRECTED CAREY Administration Lorazepam 1 mg 03/02/20 00:23 Ativan PO 03/02/20 00:24 ONETIME ONE Sodium Chloride 10 ml 03/01/20 21:00 Saline Flush FLUSH ASDIRECTED PRN Keep Vein Open Discontinued Medications Generic Name Dose Route Start Last Admin Trade Name Brook PRN Reason Stop Dose Admin Acetaminophen 650 mg 03/01/20 21:33 03/01/20 21:40 Tylenol PO 03/01/20 21:34 650 mg NOW ONE Administration Hydrocodone Bitart/Acetaminophen 1 tab 03/02/20 00:22 [place] 325-5 Mg PO 03/02/20 00:23 ONETIME ONE Hydromorphone HCl 0.5 mg 03/01/20 21:16 Dilaudid IVPUSH 03/01/20 21:17 ONETIME ONE - Re-Assessments/Exams Free Text/Narrative Re-Assessment/Exam: 03/02/20 00:24 pt had a repeat cat scan which looked much better than his last scan. The pt states he is going to get back to AA and hopefully the meetings are once again going. He does not have insurance at this point and therefore treatment is not a good option. He is going to detox himself at home. His mother is willing to be around. He will be given a small amount of ativan and he gets too sick he needs to return. If he does get insurance and does not go to treatment he needs to get involved with the outpt support groups. Departure - Departure Time of Disposition: 00:27 Disposition: Home, Self-Care 01 Condition: Fair Clinical Impression: Intoxication, History of subdural hematoma, Dehydration - Discharge Information Referrals: PCP,None [Primary Care Provider] - Forms: ED Department Discharge Care Plan Goals: try to stop drinking rtc if the withdrawal is too bad, consider outpt support group, ativan 1 mg 1 tab q6h # 10 Sepsis Event Note (ED) - Focused Exam Vital Signs: Vital Signs Temp Pulse Resp BP Pulse Ox 03/01/20 21:25 36.3 C 100 14 121/95 H 98 - My Orders Last 24 Hours: My Active Orders 03/01/20 20:49 DRUG SCREEN, URINE [URCHEM] Stat UA W/MICROSCOPIC [URIN] Urgent 03/01/20 21:00 Sodium Chloride 0.9% [Saline Flush] 10 ml FLUSH ASDIRECTED PRN Saline Lock Insert [OM.PC] Routine 03/01/20 21:45 Sodium Chloride 0.9% [Normal Saline] 1,000 ml IV ASDIRECTED Sodium Chloride 0.9% [Normal Saline] 1,000 ml IV ASDIRECTED 03/02/20 00:23 LORazepam [Ativan] 1 mg PO ONETIME ONE - Assessment/Plan Last 24 Hours: My Active Orders 03/01/20 20:49 DRUG SCREEN, URINE [URCHEM] Stat UA W/MICROSCOPIC [URIN] Urgent 03/01/20 21:00 Sodium Chloride 0.9% [Saline Flush] 10 ml FLUSH ASDIRECTED PRN Saline Lock Insert [OM.PC] Routine 03/01/20 21:45 Sodium Chloride 0.9% [Normal Saline] 1,000 ml IV ASDIRECTED Sodium Chloride 0.9% [Normal Saline] 1,000 ml IV ASDIRECTED 03/02/20 00:23 LORazepam [Ativan] 1 mg PO ONETIME ONE
[2020-03-01] MEDS ORDERED: HYDROmorphone 0.5 MG/0.5 ML Syringe IVPUSH ONE (21:16)
[2020-03-01 21:27] VITALS: BP 121/95; PULSE 100
[2020-03-01] MEDS ORDERED: Acetaminophen 325 MG Tab PO ONE (21:33)
--- NOTE | 2020-03-01 21:34 | CRLCT ---
INDICATION: Headache. Previous acute on chronic right convexity subdural hematoma. COMPARISON: 02/10/2020 TECHNIQUE: CT examination of the head was performed with 3 mm thick axial and coronal sections without intravenous contrast. Images were obtained from the vertex of the skull through the skull base, and I examined the images with the brain and bone windows. Please note that all CT scans at this facility use dose modulation, iterative reconstruction, and/or weight-based dosing when appropriate to reduce radiation dose to as low as reasonably achievable. FINDINGS: During the interval, there has been a moderate sized right parietal craniotomy with evacuation of the vast majority of the acute on chronic right convexity subdural hematoma. There are tiny areas of isodense hemorrhage in the mid parietal region, located within a small residual chronic hemispheric subdural collection measuring up to 4-5 millimeters in greatest thickness. The previously seen moderate right to left midline shift has nearly completely resolved, now only 2-3 millimeters. The previously seen prominent effacement of the right lateral ventricle is also nearly completely resolved. The previously seen descending transtentorial herniation with shift of the midbrain towards the left has completely resolved. The brain itself is normal in appearance for the patient`s age on today`s study, with no sign of mass lesion, mass effect, intraparenchymal hemorrhage, or edema. The ventricles and sulci are normal in appearance for the patient`s age. The visualized portions of the orbits are normal in appearance. The visualized paranasal sinuses and mastoids are clear. The rest of the osseous structures are normal in their appearance with no sign of additional abnormality in the skull base or calvarium. IMPRESSION: Marked improvement in previously seen moderate acute on chronic right convexity subdural hematoma following creation of a new moderate right mid parietal craniotomy. The greatest thickness of the chronic subdural hematoma is now 4 millimeters. No sign of re-hemorrhage. Marked improvement in mass effect with near complete resolution of [id number] midline shift and improvement in effacement of the right lateral ventricle. No sign of acute injury to the brain. Please note that all CT scans at this facility use dose modulation, iterative reconstruction, and/or weight-based dosing when appropriate to reduce radiation dose to as low as reasonably achievable. Dictated by Chivo Pope MD @ Mar 01 2020 9:26PM Signed by Dr. Chivo Pope @ Mar 01 2020 9:33PM
[2020-03-01] MEDS ORDERED: Sodium Chloride 0.9% 1,000 ML IV SCH ×2 (21:45)
[2020-03-02] MEDS ORDERED: Acetaminophen/HYDROcodone 325-5 MG Tab PO ONE (00:22)
[2020-03-02] MEDS ORDERED: LORazepam 1 MG Tab PO ONE (00:23)
== END 2020-03-02 00:50 | disposition home or self-care (01) ==
LOC: JP.ED 20:45
DX: E86.0 Dehydration (principal); F10.129 Alcohol abuse with intoxication, unspecified; Y90.8 Blood alcohol level of 240 mg/100 ml or more; I10 Essential (primary) hypertension; I25.10 Atherosclerotic heart disease of native coronary artery without angina pectoris; I25.2 Old myocardial infarction; F41.9 Anxiety disorder, unspecified; F32.9 Major depressive disorder, single episode, unspecified; E11.9 Type 2 diabetes mellitus without complications; Z87.898 Personal history of other specified conditions; Z88.0 Allergy status to penicillin; Z88.1 Allergy status to other antibiotic agents; Z79.899 Other long term (current) drug therapy
CPT/HCPCS: 36415; 70450; 80053; 80307; 85025; 96360; 96361; 99284; A9270; J7030

== ENCOUNTER 2020-03-07 22:52 | Emergency (ER) | payer SELFPAY ==
[2020-03-07 23:05] VITALS: BP 146/93; PULSE 98
[2020-03-07] MEDS ORDERED: Sodium Chloride 0.9% 10 ML Syringe FLUSH PRN (23:26)
[2020-03-07] MEDS ORDERED: LORazepam 2 MG/ML SDV IVPUSH ONE (23:27)
--- NOTE | 2020-03-07 23:30 | EDM.PDOC ---
ED HPI GENERAL MEDICAL PROBLEM - General Chief Complaint: Neuro Symptoms/Deficits Stated Complaint: MEDICAL VIA [facility] Time Seen by Provider: 03/07/20 23:17 Source of Information: Reports: Patient, RN Notes Reviewed History Limitations: Reports: No Limitations - History of Present Illness INITIAL COMMENTS - FREE TEXT/NARRATIVE: 49-year-old gentleman presents emergency department with a complaints of diaphoresis shaking and blurry vision, he has a known history of alcohol abuse and dependence he admits that he consumed alcohol heavily approximately 48 hours ago had reduced the amount 24 hours ago and had a couple small sips of alcohol this morning. He states the diaphoresis and the blurry vision now have resolved he does have a history of a subdural hematoma status post evacuation secondary to a fall. He feels he is back to his usual baseline he does not want to go to the detoxification facility he would like to try and quit the alcohol by himself occipital headache Pain Score (Numeric/FACES): 1 - Related Data Allergies Allergy/AdvReac Type Severity Reaction Status Date / Time Penicillins Allergy Hives Verified 03/07/20 22:54 erythromycin base AdvReac Nausea Verified 03/07/20 22:54 Home Meds: Home Meds Metoprolol Tartrate [Lopressor] 12.5 mg PO DAILY 03/29/14 [History] traZODone HCl [Trazodone HCl] 50 mg PO BEDTIME 11/05/16 [History] Dextroamphetamine/Amphetamine [Adderall 20 mg Tablet] 1 tab PO DAILY 01/07/20 [History] FLUoxetine HCl [Prozac] 40 mg PO DAILY 01/07/20 [History] QUEtiapine [SEROquel] 25 mg PO BEDTIME 01/07/20 [History] Past Medical History HEENT History: Reports: Impaired Vision Cardiovascular History: Reports: Arrhythmia, CAD, Hypertension, PR, Other (See Below) Other Cardiovascular History: svt Respiratory History: Reports: Bronchitis, Recurrent Gastrointestinal History: Reports: Diverticulosis Genitourinary History: Reports: Prostate Disorder, Renal Calculus Musculoskeletal History: Reports: Fracture Other Musculoskeletal History: dislocated shoulder Neurological History: Reports: Brain Injury (Subdural hematoma), Concussion Psychiatric History: Reports: Addiction, Anxiety, Depression, Panic Attack, Psych Hospitalization(s), PTSD, Suicide Attempt Other Psychiatric History: Major depressive disorder. ETOH Endocrine/Metabolic History: Reports: Diabetes, Type II, Other (See Below) Other Endocrine/Metabolic History: type II diabetes history Hematologic History: Reports: B12 Deficiency, Folic Acid Immunologic History: Reports: Other (See Below) Other Immunologic History: anaplasmosis, lyme disease Dermatologic History: Reports: Eczema - Infectious Disease History Infectious Disease History: Reports: Chicken Pox - Past Surgical History GI Surgical History: Reports: Bariatric Procedure, Cholecystectomy, Colonoscopy Musculoskeletal Surgical History: Reports: Arthroscopic Knee Social & Family History - Tobacco Use Smoking Status *Q: Never Smoker - Caffeine Use Caffeine Use: Reports: Coffee, Soda - Recreational Drug Use Recreational Drug Use: No - Living Situation & Occupation Living situation: Reports: with Significant Other (reports is getting divorce from in [place], living with his son.) Occupation: Employed ED ROS GENERAL - Review of Systems Review Of Systems: See Below Constitutional: Reports: Diaphoresis HEENT: Reports: Vision Change Respiratory: Reports: No Symptoms Cardiovascular: Reports: No Symptoms GI/Abdominal: Reports: No Symptoms Neurological: Reports: Headache ED EXAM, GENERAL - Physical Exam Exam: See Below Exam Limited By: No Limitations General Appearance: Alert, WD/WN, No Apparent Distress Eye Exam: Bilateral Eye: Normal Inspection, PERRL Respiratory/Chest: No Respiratory Distress, Lungs Clear, Normal Breath Sounds, No Accessory Muscle Use, Chest Non-Tender Cardiovascular: Regular Rate, Rhythm, No Murmur Course - Vital Signs Last Recorded V/S: Last Vital Signs Temp 99.0 F 03/07/20 23:05 Pulse 98 03/07/20 23:05 Resp 17 03/07/20 23:05 BP 146/93 H 03/07/20 23:05 Pulse Ox 98 03/07/20 23:05 - Orders/Labs/Meds Orders: Active Orders 24 hr Category Date Time Status Peripheral IV Care [RC] . DIRECTED Care 03/07/20 23:27 Active Lactated Ringers [Ringers, Lactated] 1,000 ml Med 03/07/20 23:30 Active IV ASDIRECTED Sodium Chloride 0.9% [Saline Flush] Med 03/07/20 23:26 Active 10 ml FLUSH ASDIRECTED PRN Peripheral IV Insertion Adult [OM.PC] Urgent Oth 03/07/20 23:26 Ordered Medication Orders Lactated Ringer's (Ringers, Lactated) 1,000 mls @ 999 mls/hr IV ASDIRECTED CAREY Last Admin: 03/08/20 00:56 Dose: 999 mls/hr Documented by: Infusion: 03/08/20 00:54 Dose: 999 mls/hr Documented by: Admin: 03/07/20 23:53 Dose: 999 mls/hr Documented by: MARITZA Sodium Chloride (Saline Flush) 10 ml FLUSH ASDIRECTED PRN PRN Reason: Keep Vein Open Last Admin: 03/07/20 23:59 Dose: 10 ml Documented by: MARITZA Labs: Laboratory Tests 03/07/20 03/07/20 03/07/20 Range/Units 23:40 23:40 23:40 WBC 8.3 (4.5-11.0) K/uL RBC 5.00 (4.30-5.90) M/uL Hgb 15.0 (12.0-15.0) g/dL Hct 42.8 (40.0-54.0) % MCV 86 (80-98) fL MCH 30 (27-31) pg MCHC 35 (32-36) % Plt Count 203 (150-400) K/uL Neut % (Auto) 73 H (36-66) % Lymph % (Auto) 14 L (24-44) % [place] % (Auto) 9 H (2-6) % Eos % (Auto) 4 (2-4) % Baso % (Auto) 1 (0-1) % Sodium 139 L (140-148) mmol/L Potassium 2.9 L* (3.6-5.2) mmol/L Chloride 103 (100-108) mmol/L Carbon Dioxide 25 (21-32) mmol/L Anion Gap 13.9 (5.0-14.0) mmol/L BUN 4 L D (7-18) mg/dL Creatinine 1.0 (0.8-1.3) mg/dL Est Cr Clr Drug Dosing 82.41 mL/min Estimated GFR (MDRD) > 60 (>60) Glucose 135 H (74-106) mg/dL Calcium 8.5 (8.5-10.1) mg/dL Total Bilirubin 1.6 H D (0.2-1.0) mg/dL AST 31 (15-37) U/L ALT 40 (12-78) U/L Alkaline Phosphatase 132 H (46-116) U/L Total Protein 6.2 L (6.4-8.2) g/dL Albumin 3.6 (3.4-5.0) g/dL Globulin 2.6 (2.3-3.5) g/dL Albumin/Globulin Ratio 1.4 (1.2-2.2) Ethyl Alcohol 4 mg/dL Meds: Medications Generic Name Dose Route Start Last Admin Trade Name Freq PRN Reason Stop Dose Admin Lactated Ringer's 1,000 mls @ 999 mls/hr 03/07/20 23:30 03/08/20 00:56 Ringers, Lactated IV 999 mls/hr ASDIRECTED CAREY Administration Sodium Chloride 10 ml 03/07/20 23:26 03/07/20 23:59 Saline Flush FLUSH 10 ml ASDIRECTED PRN Administration Keep Vein Open Discontinued Medications Generic Name Dose Route Start Last Admin Trade Name Freq PRN Reason Stop Dose Admin Potassium Chloride 20 meq/ 100 mls @ 50 mls/hr 03/08/20 00:18 03/08/20 00:45 Premix IV 03/08/20 02:17 50 mls/hr ONETIME ONE Administration Lorazepam 1 mg 03/07/20 23:27 03/07/20 23:53 Ativan IVPUSH 03/07/20 23:28 1 mg ONETIME ONE Administration Potassium Chloride 40 meq 03/08/20 00:12 03/08/20 00:46 Klor-Con M20 PO 03/08/20 00:13 40 meq ONETIME ONE Administration Potassium Chloride 20 meq 03/08/20 00:12 03/08/20 02:00 Potassium Chloride Solution PO 03/08/20 00:13 Not Given ONETIME ONE Departure - Departure Time of Disposition: 02:52 Disposition: Home, Self-Care 01 Condition: Poor Clinical Impression: Alcohol withdrawal Qualifiers: Complication of substance-induced condition: uncomplicated Qualified Code(s): F10.230 - Alcohol dependence with withdrawal, uncomplicated - Discharge Information Instructions: Alcohol Withdrawal Syndrome, [id number] Referrals: PCP,None [Primary Care Provider] - Forms: ED Department Discharge Additional Instructions: He use the Ativan as needed for symptoms, please refrain from alcohol, please followup with your primary care provider in 3-5 days if not better, please call return to the emergency department with worsening of symptoms. Sepsis Event Note (ED) - Evaluation Sepsis Screening Result: No Definite Risk - Focused Exam Vital Signs: Vital Signs Temp Pulse Resp BP Pulse Ox 03/07/20 23:05 99.0 F 98 17 146/93 H 98 03/07/20 22:54 99.0 F 98 17 146/93 H 98 - My Orders Last 24 Hours: My Active Orders 03/07/20 23:26 Sodium Chloride 0.9% [Saline Flush] 10 ml FLUSH ASDIRECTED PRN Peripheral IV Insertion Adult [OM.PC] Urgent 03/07/20 23:27 Peripheral IV Care [RC] . DIRECTED 03/07/20 23:30 Lactated Ringers [Ringers, Lactated] 1,000 ml IV ASDIRECTED - Assessment/Plan Last 24 Hours: My Active Orders 03/07/20 23:26 Sodium Chloride 0.9% [Saline Flush] 10 ml FLUSH ASDIRECTED PRN Peripheral IV Insertion Adult [OM.PC] Urgent 03/07/20 23:27 Peripheral IV Care [RC] . DIRECTED 03/07/20 23:30 Lactated Ringers [Ringers, Lactated] 1,000 ml IV ASDIRECTED Plan: Assessment Acuity = acute Site and laterality = alcohol withdrawal Etiology = EtOH Manifestations = tremors, diaphoresis Location of injury = Home Lab values = potassium low at 2.9 consistent hypokalemia, CBC unremarkable total bilirubin elevated 1.6 consistent hyperbilirubinemia alcohol slightly elevated at 4 Plan Potassium was replaced while in the ED, was given 2 L of fluid as well as 1 mg Ativan with significant improvement prescription written for Ativan 1 mg p.o. 3 times daily PRN total #10 follow-up primary care 3 to 5 days if not better, I did offer him transport to detoxification facility he declined This note was dictated using [employer] voice recognition software please call with any questions on syntax or grammar.
[2020-03-07] MEDS: Lactated Ringers 1,000 ML IV SCH (23:53)
[2020-03-08] MEDS ORDERED: Potassium Chloride 10% 20 MEQ/15 ML Soln 15 ML UD Cup PO ONE (00:12)
[2020-03-08] MEDS ORDERED: Potassium Chloride 20 MEQ Tab.ER PO ONE (00:12)
[2020-03-08] MEDS ORDERED: Potassium Chloride 20 MEQ in Premix Bag 1 BAG IV ONE (00:18)
[2020-03-08] MEDS: Lactated Ringers 1,000 ML IV SCH (00:56)
== END 2020-03-08 03:28 | disposition home or self-care (01) ==
LOC: JP.ED 22:52
DX: F10.230 Alcohol dependence with withdrawal, uncomplicated (principal); I10 Essential (primary) hypertension; I25.2 Old myocardial infarction; I25.10 Atherosclerotic heart disease of native coronary artery without angina pectoris; E11.9 Type 2 diabetes mellitus without complications; F41.0 Panic disorder [episodic paroxysmal anxiety]; F32.9 Major depressive disorder, single episode, unspecified; Y90.0 Blood alcohol level of less than 20 mg/100 ml; Z88.0 Allergy status to penicillin; Z88.1 Allergy status to other antibiotic agents; Z79.899 Other long term (current) drug therapy; Z90.49 Acquired absence of other specified parts of digestive tract; Z98.890 Other specified postprocedural states
CPT/HCPCS: 36415; 80053; 80307; 85025; 96361; 96365; 96366; 96375; 99285; A9270; J2060; J3480; J7120

== ENCOUNTER 2020-03-23 13:26 | Emergency (ER) | payer SELFPAY ==
--- NOTE | 2020-03-23 13:42 | EDM.PDOC ---
ED HPI GENERAL MEDICAL PROBLEM - General Chief Complaint: General Stated Complaint: SEIZURES Time Seen by Provider: 03/23/20 13:42 Source of Information: Reports: Patient History Limitations: Reports: No Limitations - History of Present Illness INITIAL COMMENTS - FREE TEXT/NARRATIVE: Brought by mother via private auto. Has had several seizures today. Has fallen both yesterday and today and hit his head. If again past history of alcohol withdrawal seizures and brain surgery 1 month ago. Patient is currently nauseated complaining of headache. Patient gives a history of drinking alcohol yesterday but not today. Onset: Today Location: Reports: Head Quality: Reports: Ache Severity: Moderate Context: Reports: Trauma - Related Data Allergies Allergy/AdvReac Type Severity Reaction Status Date / Time Penicillins Allergy Hives Verified 03/07/20 22:54 erythromycin base AdvReac Nausea Verified 03/07/20 22:54 Home Meds: Home Meds Metoprolol Tartrate [Lopressor] 12.5 mg PO DAILY 03/29/14 [History] traZODone HCl [Trazodone HCl] 50 mg PO BEDTIME 11/05/16 [History] Dextroamphetamine/Amphetamine [Adderall 20 mg Tablet] 1 tab PO DAILY 01/07/20 [History] FLUoxetine HCl [Prozac] 40 mg PO DAILY 01/07/20 [History] QUEtiapine [SEROquel] 25 mg PO BEDTIME 01/07/20 [History] Past Medical History HEENT History: Reports: Impaired Vision Cardiovascular History: Reports: Arrhythmia, CAD, Hypertension, [place], Other (See Below) Other Cardiovascular History: svt Respiratory History: Reports: Bronchitis, Recurrent Gastrointestinal History: Reports: Diverticulosis Genitourinary History: Reports: Prostate Disorder, Renal Calculus Musculoskeletal History: Reports: Fracture Other Musculoskeletal History: dislocated shoulder Neurological History: Reports: Brain Injury (Subdural hematoma), Concussion Other Neuro History: subderal hematoma Psychiatric History: Reports: Addiction, Anxiety, Depression, Panic Attack, Psych Hospitalization(s), PTSD, Suicide Attempt Other Psychiatric History: Major depressive disorder. ETOH Endocrine/Metabolic History: Reports: Diabetes, Type II, Other (See Below) Other Endocrine/Metabolic History: type II diabetes history Hematologic History: Reports: B12 Deficiency, Folic Acid Immunologic History: Reports: Other (See Below) Other Immunologic History: anaplasmosis, lyme disease Dermatologic History: Reports: Eczema - Infectious Disease History Infectious Disease History: Reports: Chicken Pox - Past Surgical History GI Surgical History: Reports: Bariatric Procedure, Cholecystectomy, Colonoscopy Musculoskeletal Surgical History: Reports: Arthroscopic Knee Social & Family History - Caffeine Use Caffeine Use: Reports: Coffee, Soda - Alcohol Use Alcohol Use Frequency: Binges - Living Situation & Occupation Living situation: Reports: with Significant Other (reports is getting divorce from in [place], living with his son.) Occupation: Employed ED ROS GENERAL - Review of Systems Review Of Systems: See Below Constitutional: Denies: Fever Respiratory: Reports: No Symptoms Cardiovascular: Reports: No Symptoms GI/Abdominal: Reports: Nausea, Vomiting Neurological: Reports: Headache, Seizure ED EXAM, GENERAL - Physical Exam Exam: See Below Exam Limited By: No Limitations General Appearance: Alert, WD/WN, Moderate Distress Eye Exam: Left Eye: Other (Periorbital ecchymosis), Bilateral Eye: EOMI, PERRL Ears: Normal External Exam, Normal Canal Throat/Mouth: Other (Right red blood present) Head: No: Facial Swelling, Facial Tenderness Respiratory/Chest: No Respiratory Distress Cardiovascular: Normal Peripheral Pulses Extremities: Normal Inspection, Normal Range of Motion, Non-Tender Neurological: Alert, Oriented, Normal Cognition Psychiatric: Anxious Skin Exam: Warm, Dry Course - Vital Signs Text/Narrative:: Differential diagnosis: Alcohol withdrawal seizures. Blunt head trauma. Intracranial hemorrhage, seizures. At 1435 I am notified by nursing staff that the patient has fallen in the bathroom. He has been to the CT scanner and I do not have results at this time. Struck his head in the bathroom and was found minimally responsive on the floor. He was moved into a bed. The whole time he had a hard c-collar in place. Order was on the chart for cervical precautions but the patient was allowed to get up and go to the bathroom. At 1458 I am called by our radiologist stating that the patient has a rebleed at the site of a previous craniotomy. is 8 mm thick and does have a slight midline shift. At 1502 I called [facility] to request transport. I discussed the patient with Dr. Campos, recommended the patient be treated with labetalol for the tachycardia and hypertension and loaded with Keppra Last Recorded V/S: Last Vital Signs Temp 35.6 C L 03/23/20 13:40 Pulse 135 H 03/23/20 13:40 Resp 18 03/23/20 13:40 BP 164/100 H 03/23/20 13:40 Pulse Ox 96 03/23/20 13:40 - Orders/Labs/Meds Orders: Active Orders 24 hr Category Date Time Status C-Spine Precautions [Cervical Spine Precautions] [RC] Care 03/23/20 13:51 Active ASDIRECTED Pulse Oximetry [RC] ASDIRECTED Care 03/23/20 13:48 Active DRUG SCREEN, URINE [URCHEM] Urgent Lab 03/23/20 13:47 Ordered UA W/MICROSCOPIC [URIN] Urgent Lab 03/23/20 13:47 Ordered Sodium Chloride 0.9% [Normal Saline] 1,000 ml Med 03/23/20 14:00 Active IV ASDIRECTED Medication Orders Sodium Chloride (Normal Saline) 1,000 mls @ 500 mls/hr IV ASDIRECTED CAREY Last Admin: 03/23/20 13:55 Dose: 500 mls/hr Documented by: [email or web address] Labs: Laboratory Tests 03/23/20 03/23/20 03/23/20 Range/Units 13:55 13:55 13:55 WBC 8.9 (4.5-11.0) K/uL RBC 4.81 (4.30-5.90) M/uL Hgb 14.3 (12.0-15.0) g/dL Hct 41.7 (40.0-54.0) % MCV 87 (80-98) fL MCH 30 (27-31) pg MCHC 34 (32-36) % Plt Count 171 (150-400) K/uL PT 11.4 (9.5-12.0) sec INR 1.05 (0.80-1.20) Sodium 137 L (140-148) mmol/L Potassium 3.1 L (3.6-5.2) mmol/L Chloride 100 (100-108) mmol/L Carbon Dioxide 13 L (21-32) mmol/L Anion Gap 27.1 H (5.0-14.0) mmol/L BUN 5 L (7-18) mg/dL Creatinine 1.2 (0.8-1.3) mg/dL Est Cr Clr Drug Dosing 71.15 mL/min Estimated GFR (MDRD) > 60 (>60) Glucose 198 H (74-106) mg/dL Calcium 8.2 L (8.5-10.1) mg/dL Total Bilirubin 1.2 H (0.2-1.0) mg/dL AST 77 H D (15-37) U/L ALT 54 (12-78) U/L Alkaline Phosphatase 149 H (46-116) U/L Total Protein 5.8 L (6.4-8.2) g/dL Albumin 3.4 (3.4-5.0) g/dL Globulin 2.4 (2.3-3.5) g/dL Albumin/Globulin Ratio 1.4 (1.2-2.2) Ethyl Alcohol mg/dL 03/23/20 Range/Units 13:55 WBC (4.5-11.0) K/uL RBC (4.30-5.90) M/uL Hgb (12.0-15.0) g/dL Hct (40.0-54.0) % MCV (80-98) fL MCH (27-31) pg MCHC (32-36) % Plt Count (150-400) K/uL PT (9.5-12.0) sec INR (0.80-1.20) Sodium (140-148) mmol/L Potassium (3.6-5.2) mmol/L Chloride (100-108) mmol/L Carbon Dioxide (21-32) mmol/L Anion Gap (5.0-14.0) mmol/L BUN (7-18) mg/dL Creatinine (0.8-1.3) mg/dL Est Cr Clr Drug Dosing mL/min Estimated GFR (MDRD) (>60) Glucose (74-106) mg/dL Calcium (8.5-10.1) mg/dL Total Bilirubin (0.2-1.0) mg/dL AST (15-37) U/L ALT (12-78) U/L Alkaline Phosphatase (46-116) U/L Total Protein (6.4-8.2) g/dL Albumin (3.4-5.0) g/dL Globulin (2.3-3.5) g/dL Albumin/Globulin Ratio (1.2-2.2) Ethyl Alcohol < 3 mg/dL Meds: Medications Generic Name Dose Route Start Last Admin Trade Name Freq PRN Reason Stop Dose Admin Sodium Chloride 1,000 mls @ 500 mls/hr 03/23/20 14:00 03/23/20 13:55 Normal Saline IV 500 mls/hr ASDIRECTED CAREY Administration Discontinued Medications Generic Name Dose Route Start Last Admin Trade Name Brook PRN Reason Stop Dose Admin Diazepam 5 mg 03/23/20 13:47 03/23/20 14:00 Valium IVPUSH 03/23/20 13:48 5 mg ONETIME ONE Administration Hydromorphone HCl 0.5 mg 03/23/20 13:47 Dilaudid IVPUSH 03/23/20 13:48 ONETIME ONE Levetiracetam 500 mg/ Sodium 105 mls @ 400 mls/hr 03/23/20 15:30 03/23/20 15:30 Chloride IV 03/23/20 15:45 400 mls/hr ONETIME ONE Administration Labetalol HCl 10 mg 03/23/20 15:10 03/23/20 15:23 Normodyne IVPUSH 03/23/20 15:11 10 mg ONETIME ONE Administration Protocol Ondansetron HCl 4 mg 03/23/20 15:19 03/23/20 15:28 Zofran IVPUSH 03/23/20 15:20 4 mg ONETIME ONE Administration Departure - Departure Time of Disposition: 16:00 Disposition: DC/Tfer to Critical Access [facility] Clinical Impression: Subdural hematoma, post-traumatic Qualifiers: Encounter type: initial encounter Loss of consciousness presence/duration: with LOC of unspecified duration Qualified Code(s): S06.5X9A - Traumatic subdural hemorrhage with loss of consciousness of unspecified duration, initial encounter - Discharge Information Referrals: PCP,None [Primary Care Provider] - Forms: ED Department Discharge Sepsis Event Note (ED) - Evaluation Sepsis Screening Result: No Definite Risk - Focused Exam Vital Signs: Vital Signs Temp Pulse Resp BP Pulse Ox 03/23/20 13:40 35.6 C L 135 H 18 164/100 H 96 03/23/20 13:38 35.6 C L 135 H 18 164/100 H 96 - My Orders Last 24 Hours: My Active Orders 03/23/20 13:47 DRUG SCREEN, URINE [URCHEM] Urgent UA W/MICROSCOPIC [URIN] Urgent 03/23/20 13:48 Pulse Oximetry [RC] ASDIRECTED 03/23/20 13:51 C-Spine Precautions [Cervical Spine Precautions] [RC] ASDIRECTED 03/23/20 14:00 Sodium Chloride 0.9% [Normal Saline] 1,000 ml IV ASDIRECTED - Assessment/Plan Last 24 Hours: My Active Orders 03/23/20 13:47 DRUG SCREEN, URINE [URCHEM] Urgent UA W/MICROSCOPIC [URIN] Urgent 03/23/20 13:48 Pulse Oximetry [RC] ASDIRECTED 03/23/20 13:51 C-Spine Precautions [Cervical Spine Precautions] [RC] ASDIRECTED 03/23/20 14:00 Sodium Chloride 0.9% [Normal Saline] 1,000 ml IV ASDIRECTED
[2020-03-23] MEDS ORDERED: HYDROmorphone 0.5 MG/0.5 ML Syringe IVPUSH ONE (13:47)
[2020-03-23] MEDS ORDERED: Sodium Chloride 0.9% 1,000 ML IV SCH (14:00)
--- NOTE | 2020-03-23 15:02 | CT ---
Head wo Cont, Cervical Spine wo Cont CLINICAL HISTORY: Head trauma, seizure, loss of consciousness COMPARISON: 03/01/2020 TECHNIQUE: Transverse scans were obtained from the base of the skull through the vertex without IV contrast on a multislice, multidetector CT scanner. Auto dosage reduction and iterative reconstruction techniques employed. FINDINGS: Patient has had previous right craniotomy. There has been recurrence of acute subdural hemorrhage over the right parietal convexity. Maximum diameter is 8 mm There is some slight effacement of the sulci. There is no shift of the midline.. There is no mass effect, hemorrhage, or extraaxial collection. IMPRESSION: Recurrent acute subdural hemorrhage over the right parietal convexity with very minimal mass effect Previous craniotomy Findings were conferred to to Dr. Palacios in the ER by phone at 3:00 PM Head wo Cont, Cervical Spine wo Cont TECHNIQUE: Multiple CT sections were taken through the cervical spine in the transaxial projection. Coronal and sagittal views were reconstructed. Images were viewed at bone as well as soft tissue windows on a digital workstation. Auto dosage reduction and iterative reconstruction techniques employed. FINDINGS: Sagittal images show the cervical vertebral configuration to be normal throughout. Alignment is maintained. There is some disc space narrowing at C7-T1. Pedicles and spinous processes appear intact. Prevertebral soft tissues are unremarkable. IMPRESSION: No fracture or subluxation
[2020-03-23] MEDS ORDERED: Labetalol 20 MG/4 ML Syringe IVPUSH ONE ×2 (15:10→16:02)
[2020-03-23] MEDS ORDERED: levETIRAcetam 500 MG in Sodium Chloride 0.9% 100 ML IV ONE ×2 (15:11→15:30)
[2020-03-23] MEDS ORDERED: Ondansetron 4 MG/2 ML SDV IVPUSH ONE (15:19)
--- NOTE | 2020-03-23 15:28 | CT ---
Head wo Cont CLINICAL HISTORY: Right subdural hematoma, repeat trauma COMPARISON: Earlier same day TECHNIQUE: Transverse scans were obtained from the base of the skull through the vertex without IV contrast on a multislice, multidetector CT scanner. Auto dosage reduction and iterative reconstruction techniques employed. FINDINGS: Patient has a known right the parietal subdural hematoma. This may have increased just slightly since the recent study. There is a minimal leftward shift of the midline of approximately 2 mm. There is no mass effect, hemorrhage, or extraaxial collection. The basal cisterns and sulci over the convexities are normal. The ventricles are normal for age. IMPRESSION: Possible minimal increase in right parietal subdural hematoma with minimal mass effect
[2020-03-23] MEDS: Prochlorperazine 10 MG in Sodium Chloride 0.9% 50 ML IV ONE ×2 (16:14→16:17)
[2020-03-23 16:42] VITALS: BP 178/111; PULSE 94
== END 2020-03-23 16:33 | disposition critical access hospital (66) ==
LOC: JP.ED 13:26
DX: S06.5X9A Traumatic subdural hemorrhage with loss of consciousness of unspecified duration, initial encounter (principal); I25.10 Atherosclerotic heart disease of native coronary artery without angina pectoris; I10 Essential (primary) hypertension; I25.2 Old myocardial infarction; F41.9 Anxiety disorder, unspecified; F32.9 Major depressive disorder, single episode, unspecified; E11.9 Type 2 diabetes mellitus without complications; Z88.1 Allergy status to other antibiotic agents; Z88.0 Allergy status to penicillin; Z79.899 Other long term (current) drug therapy; W22.8XXA Striking against or struck by other objects, initial encounter
CPT/HCPCS: 36415; 70450; 72125; 80053; 80307; 85027; 85610; 96361; 96374; 96375; 96376; 99285; J0780; J1953; J2405; J3360; J3490; J7030; J7050

== ENCOUNTER 2020-04-13 11:20 | Emergency (ER) | payer BC, OTHER ==
[2020-04-13 12:06] VITALS: BP 116/65; PULSE 114
[2020-04-13] MEDS ORDERED: LORazepam 2 MG/ML SDV IVPUSH ONE (12:19)
[2020-04-13] MEDS ORDERED: Sodium Chloride 0.9% 1,000 ML IV SCH (12:30)
--- NOTE | 2020-04-13 12:49 | EDM.PDOC ---
ED HPI GENERAL MEDICAL PROBLEM - General Chief Complaint: General Stated Complaint: FELL HIT HEAD Time Seen by Provider: 04/13/20 11:24 Source of Information: Reports: Patient History Limitations: Reports: No Limitations - History of Present Illness INITIAL COMMENTS - FREE TEXT/NARRATIVE: 49-year-old male with a history of a recent subdural hematoma with evacuation alcoholism presents to the emergency department with headache, fall, and withdrawal from alcohol. The patient admittedly intoxicated last night and fell. He does not know whether he passed out or fell. His son found him this morning in bed and told him that he had fallen. The patient does not remember any of the events. He does not know whether he had a seizure. Complains of a moderate headache. He denies any new neurological symptoms however he notes he is withdrawing from alcohol. His last drink was last night. He currently describes a headache, nausea, tremor, sweating as well as increased heart rate. Right Middle Head Pain Score (Numeric/FACES): 6 - Related Data Allergies Allergy/AdvReac Type Severity Reaction Status Date / Time Penicillins Allergy Hives Verified 03/07/20 22:54 erythromycin base AdvReac Nausea Verified 03/07/20 22:54 Home Meds: Home Meds Metoprolol Tartrate [Lopressor] 12.5 mg PO DAILY 03/29/14 [History] traZODone HCl [Trazodone HCl] 50 mg PO BEDTIME 11/05/16 [History] Dextroamphetamine/Amphetamine [Adderall 20 mg Tablet] 1 tab PO DAILY 01/07/20 [History] FLUoxetine HCl [Prozac] 40 mg PO DAILY 01/07/20 [History] QUEtiapine [SEROquel] 25 mg PO BEDTIME 01/07/20 [History] levETIRAcetam [Keppra] 750 mg PO BID 04/13/20 [History] Past Medical History HEENT History: Reports: Impaired Vision Cardiovascular History: Reports: Arrhythmia, CAD, Hypertension, [place], Other (See Below) Other Cardiovascular History: svt Respiratory History: Reports: Bronchitis, Recurrent Gastrointestinal History: Reports: Diverticulosis Genitourinary History: Reports: Prostate Disorder, Renal Calculus Musculoskeletal History: Reports: Fracture Other Musculoskeletal History: dislocated shoulder Neurological History: Reports: Brain Injury, Concussion Other Neuro History: subderal hematoma Psychiatric History: Reports: Addiction, Anxiety, Depression, Panic Attack, Psych Hospitalization(s), PTSD, Suicide Attempt Other Psychiatric History: Major depressive disorder. ETOH Endocrine/Metabolic History: Reports: Diabetes, Type II, Other (See Below) Other Endocrine/Metabolic History: type II diabetes history Hematologic History: Reports: B12 Deficiency, Folic Acid Immunologic History: Reports: Other (See Below) Other Immunologic History: anaplasmosis, lyme disease Dermatologic History: Reports: Eczema - Infectious Disease History Infectious Disease History: Reports: Chicken Pox - Past Surgical History GI Surgical History: Reports: Bariatric Procedure, Cholecystectomy, Colonoscopy Musculoskeletal Surgical History: Reports: Arthroscopic Knee Social & Family History - Tobacco Use Smoking Status *Q: Former Smoker Used Tobacco, but Quit: Yes Month/Year Tobacco Last Used: 2004 - Caffeine Use Caffeine Use: Reports: Coffee - Alcohol Use Days Per Week of Alcohol Use: 7 Number of Drinks Per Day: 7 Total Drinks Per Week: 49 Date of Last Drink: 04/13/20 Time of Last Drink: 01:00 - Recreational Drug Use Recreational Drug Use: No - Living Situation & Occupation Living situation: Reports: with Significant Other (reports is getting divorce from in [place], living with his son.) Occupation: Employed ED ROS GENERAL - Review of Systems Review Of Systems: See Below Constitutional: Reports: Diaphoresis HEENT: Reports: No Symptoms Respiratory: Reports: No Symptoms Cardiovascular: Reports: Palpitations Endocrine: Denies: Polydypsia, Polyuria GI/Abdominal: Reports: Nausea, Vomiting Musculoskeletal: Reports: No Symptoms Skin: Reports: No Symptoms Neurological: Reports: Syncope Psychiatric: Reports: Agitation, Anxiety ED EXAM, GENERAL - Physical Exam Exam: See Below Exam Limited By: Altered Mental Status General Appearance: Moderate Distress Ears: Normal External Exam, Normal Canal Nose: Normal Inspection Neck: Normal Inspection, Supple Respiratory/Chest: No Respiratory Distress, Lungs Clear, Normal Breath Sounds Cardiovascular: Normal Peripheral Pulses, Regular Rate, Rhythm, No Gallop GI/Abdominal: Normal Bowel Sounds, Soft, Non-Tender Extremities: Normal Inspection, Normal Range of Motion Neurological: Alert, Oriented, Normal Cognition Psychiatric: Anxious Skin Exam: Warm, Dry, Intact Course - Vital Signs Text/Narrative:: Patient, is well-known to our staff, fell and hit the right side of his head. He appears of had a syncopal spell. That was no noticed seizure. EKG shows no acute changes. CT scan of the head shows no acute changes. He has normal CBC. Patient's vital signs are stable. His CIWA-AR score was moderately elevated at 21. He was given a milligram of Ativan which seemed to control his symptoms well. Patient is being discharged from the ED to follow-up with his primary care provider. He is not interested in treatment. Return here as needed. Last Recorded V/S: Last Vital Signs Temp 36.1 C 04/13/20 12:37 Pulse 114 H 04/13/20 12:37 Resp 20 04/13/20 12:37 BP 116/65 04/13/20 12:37 Pulse Ox 93 L 04/13/20 12:37 - Orders/Labs/Meds Orders: Active Orders 24 hr Category Date Time Status EKG Documentation Completion [RC] ASDIRECTED Care 04/13/20 12:50 Active Sodium Chloride 0.9% [Normal Saline] 1,000 ml Med 04/13/20 12:30 Active IV ASDIRECTED EKG 12 Lead [EK] Routine Ther 04/13/20 12:49 Ordered Medication Orders Sodium Chloride (Normal Saline) 1,000 mls @ 1,000 mls/hr IV ASDIRECTED CAREY Last Admin: 04/13/20 12:36 Dose: 1,000 mls/hr Documented by: BARBARA Labs: Laboratory Tests 04/13/20 04/13/20 04/13/20 Range/Units 12:20 12:20 12:20 WBC 9.3 (4.5-11.0) K/uL RBC 5.49 (4.30-5.90) M/uL Hgb 16.2 H (12.0-15.0) g/dL Hct 49.3 (40.0-54.0) % MCV 90 (80-98) fL MCH 30 (27-31) pg MCHC 33 (32-36) % Plt Count 295 (150-400) K/uL Neut % (Auto) 80 H (36-66) % Lymph % (Auto) 12 L (24-44) % Gila % (Auto) 6 (2-6) % Eos % (Auto) 1 L (2-4) % Baso % (Auto) 1 (0-1) % Sodium 138 L (140-148) mmol/L Potassium 3.8 (3.6-5.2) mmol/L Chloride 97 L (100-108) mmol/L Carbon Dioxide 26 (21-32) mmol/L Anion Gap 18.8 H (5.0-14.0) mmol/L BUN 7 (7-18) mg/dL Creatinine 1.1 (0.8-1.3) mg/dL Est Cr Clr Drug Dosing 80.32 mL/min Estimated GFR (MDRD) > 60 (>60) Glucose 153 H (74-106) mg/dL Calcium 9.2 (8.5-10.1) mg/dL Total Bilirubin 2.0 H D (0.2-1.0) mg/dL AST 62 H (15-37) U/L ALT 58 (12-78) U/L Alkaline Phosphatase 206 H (46-116) U/L Total Protein 7.3 (6.4-8.2) g/dL Albumin 4.0 (3.4-5.0) g/dL Globulin 3.3 (2.3-3.5) g/dL Albumin/Globulin Ratio 1.2 (1.2-2.2) Ethyl Alcohol 4 mg/dL Meds: Medications Generic Name Dose Route Start Last Admin Trade Name Freq PRN Reason Stop Dose Admin Sodium Chloride 1,000 mls @ 1,000 mls/hr 04/13/20 12:30 04/13/20 12:36 Normal Saline IV 1,000 mls/hr ASDIRECTED CAREY Administration Discontinued Medications Generic Name Dose Route Start Last Admin Trade Name Freq PRN Reason Stop Dose Admin Lorazepam 1 mg 04/13/20 12:19 04/13/20 12:36 Ativan IVPUSH 04/13/20 12:20 1 mg ONETIME ONE Administration Departure - Departure Time of Disposition: 14:10 Disposition: Home, Self-Care 01 Condition: Good Clinical Impression: Head contusion Alcohol withdrawal Qualifiers: Complication of substance-induced condition: uncomplicated Qualified Code(s): F10.230 - Alcohol dependence with withdrawal, uncomplicated - Discharge Information *PRESCRIPTION DRUG MONITORING PROGRAM REVIEWED*: No *COPY OF PRESCRIPTION DRUG MONITORING REPORT IN PATIENT LIZA: No Referrals: Baljeet Lucio MD [Primary Care Provider] - Forms: ED Department Discharge Additional Instructions: White alcohol use. Follow-up with your doctor as needed. Sepsis Event Note (ED) - Evaluation Sepsis Screening Result: No Definite Risk - Focused Exam Vital Signs: Vital Signs Temp Pulse Resp BP Pulse Ox 04/13/20 12:37 36.1 C 114 H 20 116/65 93 L 04/13/20 12:04 36.1 C 114 H 20 116/65 93 L - My Orders Last 24 Hours: My Active Orders 04/13/20 12:30 Sodium Chloride 0.9% [Normal Saline] 1,000 ml IV ASDIRECTED 04/13/20 12:49 EKG 12 Lead [EK] Routine 04/13/20 12:50 EKG Documentation Completion [RC] ASDIRECTED - Assessment/Plan Last 24 Hours: My Active Orders 04/13/20 12:30 Sodium Chloride 0.9% [Normal Saline] 1,000 ml IV ASDIRECTED 04/13/20 12:49 EKG 12 Lead [EK] Routine 04/13/20 12:50 EKG Documentation Completion [RC] ASDIRECTED
--- NOTE | 2020-04-13 13:33 | CT ---
Head wo Cont CLINICAL HISTORY: Headache, recent fall, previous bleed COMPARISON: 03/23/2020 TECHNIQUE: Transverse scans were obtained from the base of the skull through the vertex without IV contrast on a multislice, multidetector CT scanner. Auto dosage reduction and iterative reconstruction techniques employed. FINDINGS: Patient has had previous right craniotomy for subdural hematoma. There is some minimal subdural blood. This is significantly less than seen on 03/23/2020. There is no mass effect. IMPRESSION: Previous craniotomy for right subdural hematoma The amount of subdural blood has diminished significantly since 03/23/2020. There is no mass effect
== END 2020-04-13 14:23 | disposition home or self-care (01) ==
LOC: JP.ED 11:20
DX: S00.93XA Contusion of unspecified part of head, initial encounter (principal); F10.230 Alcohol dependence with withdrawal, uncomplicated; Y90.0 Blood alcohol level of less than 20 mg/100 ml; I10 Essential (primary) hypertension; I25.2 Old myocardial infarction; I25.10 Atherosclerotic heart disease of native coronary artery without angina pectoris; E11.9 Type 2 diabetes mellitus without complications; F90.9 Attention-deficit hyperactivity disorder, unspecified type; F41.0 Panic disorder [episodic paroxysmal anxiety]; F32.9 Major depressive disorder, single episode, unspecified; Z88.0 Allergy status to penicillin; Z88.1 Allergy status to other antibiotic agents; Z79.899 Other long term (current) drug therapy; Z90.89 Acquired absence of other organs; Z87.891 Personal history of nicotine dependence; W19.XXXA Unspecified fall, initial encounter
CPT/HCPCS: 36415; 70450; 80053; 80307; 85025; 93005; 96361; 96374; 99284; J2060; J7030

== ENCOUNTER 2020-05-30 23:19 | Inpatient (IN) | payer MEDICAID, OTHER, SELFPAY ==
--- NOTE | 2020-05-30 23:49 | EDM.PDOC ---
ED HPI GENERAL MEDICAL PROBLEM - General Chief Complaint: Chest Pain Stated Complaint: MEDICAL VIA TRI Time Seen by Provider: 05/30/20 23:43 Source of Information: Reports: Patient, EMS History Limitations: Reports: Intoxication, Physical Impairment - History of Present Illness INITIAL COMMENTS - FREE TEXT/NARRATIVE: Patient presents by ambulance from home describing left-sided chest and shoulder pain which began this evening. He has had heart attack in the past, possibly 3 years ago. He does not think this current pain is the same. He drinks alcohol heavily on a daily basis and has today as well. He called 911 and during transport was given a single dose of nitroglycerin for his symptoms. He apparently had a profound decrease in blood pressure with that and no more was administered. At this time, his blood pressure is 170 mmHg. His level of intoxication limits an accurate history although one of his sons is now present in the room with him and son is not intoxicated. Onset: Sudden Duration: Constant Location: Reports: Chest (Left sided chest muscle and rib discomfort) Quality: Reports: Ache, Sharp Severity: Moderate Improves with: Reports: None Worsens with: Reports: Movement Associated Symptoms: Reports: Other (Alcohol intoxication) Treatments BELLOWS TESTER: Reports: Aspirin, Nitroglycerin - Related Data Allergies Allergy/AdvReac Type Severity Reaction Status Date / Time Penicillins Allergy Hives Verified 05/31/20 00:28 erythromycin base AdvReac Nausea Verified 05/31/20 00:28 Home Meds: Home Meds Metoprolol Tartrate [Lopressor] 12.5 mg PO DAILY 03/29/14 [History] traZODone HCl [Trazodone HCl] 50 mg PO BEDTIME 11/05/16 [History] Dextroamphetamine/Amphetamine [Adderall 20 mg Tablet] 1 tab PO DAILY 01/07/20 [History] FLUoxetine HCl [Prozac] 40 mg PO DAILY 01/07/20 [History] QUEtiapine [SEROquel] 25 mg PO BEDTIME 01/07/20 [History] levETIRAcetam [Keppra] 750 mg PO BID 04/13/20 [History] Past Medical History HEENT History: Reports: Impaired Vision Cardiovascular History: Reports: Arrhythmia, CAD, Hypertension, NM, Other (See Below) Other Cardiovascular History: svt Respiratory History: Reports: Bronchitis, Recurrent Gastrointestinal History: Reports: Diverticulosis Genitourinary History: Reports: Prostate Disorder, Renal Calculus Musculoskeletal History: Reports: Fracture Other Musculoskeletal History: dislocated shoulder Neurological History: Reports: Brain Injury, Concussion Other Neuro History: subderal hematoma Psychiatric History: Reports: Addiction, Anxiety, Depression, Panic Attack, Psych Hospitalization(s), PTSD, Suicide Attempt Other Psychiatric History: Major depressive disorder. ETOH Endocrine/Metabolic History: Reports: Diabetes, Type II, Other (See Below) Other Endocrine/Metabolic History: type II diabetes history Hematologic History: Reports: B12 Deficiency, Folic Acid Immunologic History: Reports: Other (See Below) Other Immunologic History: anaplasmosis, lyme disease Dermatologic History: Reports: Eczema - Infectious Disease History Infectious Disease History: Reports: Chicken Pox - Past Surgical History GI Surgical History: Reports: Bariatric Procedure, Cholecystectomy, Colonoscopy Musculoskeletal Surgical History: Reports: Arthroscopic Knee Social & Family History - Caffeine Use Caffeine Use: Reports: Coffee - Living Situation & Occupation Living situation: Reports: with Significant Other (reports is getting divorce from in [place], living with his son.) Occupation: Employed ED ROS GENERAL - Review of Systems Review Of Systems: See Below Constitutional: Reports: Decreased Appetite (The up there and there and there) HEENT: Reports: No Symptoms Respiratory: Reports: Shortness of Breath (Hip were were working on it) Cardiovascular: Reports: Chest Pain GI/Abdominal: Reports: Abdominal Pain (Epigastric), Nausea. Denies: Stool Incontinence, Vomiting : Reports: Incontinence Musculoskeletal: Reports: Other (Left lateral chest discomfort) Skin: Reports: Bruising (Multiple bruises) Psychiatric: Denies: Suicidal Ideation ED EXAM, GENERAL - Physical Exam Exam: See Below Free Text/Narrative:: Patient is interviewed on the bed in room 4. Speech is slow in response to questions. Exam Limited By: Intoxication General Appearance: Moderate Distress Nose: Other (Small wound on bridge of nose) Throat/Mouth: Normal Oropharynx Neck: Supple Respiratory/Chest: Lungs Clear Cardiovascular: Tachycardia GI/Abdominal: Tender (Epigastric) Back Exam: CVA Tenderness (L) (Together with left lateral chest discomfort) Extremities: Normal Range of Motion Neurological: Slow to Respond Skin Exam: Ecchymosis Course - Vital Signs Last Recorded V/S: Last Vital Signs Temp 36.4 C 05/31/20 00:34 Pulse 116 H 05/31/20 00:34 Resp 14 05/31/20 00:34 BP 144/98 H 05/31/20 00:34 Pulse Ox 98 05/31/20 00:34 - Orders/Labs/Meds Orders: Active Orders 24 hr Category Date Time Status Abdomen Pelvis w Cont [CT] Stat Exams 05/31/20 01:16 Ordered Ribs 2V w Chest Lt [CR] Stat Exams 05/31/20 00:15 Taken Iopamidol [Isovue-300 (61%)] Med 05/31/20 01:41 Active 100 ml IV . DIRECTED PRN Lactated Ringers [Ringers, Lactated] 1,000 ml Med 05/31/20 01:15 Ordered IV BOLUS Sodium Chloride 0.9% [Normal Saline] 70 ml Med 05/31/20 01:45 Active IV ASDIRECTED Sodium Chloride 0.9% [Saline Flush] Med 05/30/20 23:51 Ordered 10 ml FLUSH ASDIRECTED PRN Sodium Chloride 0.9% [Saline Flush] Med 05/31/20 01:41 Active 10 ml FLUSH ONETIME PRN Saline Lock Insert [OM.PC] Routine Oth 05/30/20 23:51 Ordered Medication Orders Lactated Ringer's (Ringers, Lactated) 1,000 mls @ 250 mls/hr IV BOLUS ONE Stop: 05/31/20 05:14 Sodium Chloride (Normal Saline) 70 mls @ 2.5 mls/sec IV ASDIRECTED CAREY Iopamidol (Isovue-300 (61%)) 100 ml IV . DIRECTED PRN PRN Reason: RADIOLOGY EXAM Stop: 06/01/20 01:42 Sodium Chloride (Saline Flush) 10 ml FLUSH ASDIRECTED PRN PRN Reason: Keep Vein Open Last Admin: 05/31/20 00:33 Dose: 10 ml Documented by: Sodium Chloride (Saline Flush) 10 ml FLUSH ONETIME PRN PRN Reason: per radiology protocol Labs: Laboratory Tests 05/30/20 05/30/20 05/31/20 Range/Units 00:32 00:32 00:30 WBC 9.6 (4.5-11.0) K/uL RBC 5.30 (4.30-5.90) M/uL Hgb 16.1 H (12.0-15.0) g/dL Hct 45.8 (40.0-54.0) % MCV 86 (80-98) fL MCH 30 (27-31) pg MCHC 35 (32-36) % Plt Count 171 (150-400) K/uL Neut % (Auto) 72 H (36-66) % Lymph % (Auto) 20 L (24-44) % [place]berry % (Auto) 5 (2-6) % Eos % (Auto) 0 L (2-4) % Baso % (Auto) 2 H (0-1) % Sodium 137 L (140-148) mmol/L Potassium 4.4 (3.6-5.2) mmol/L Chloride 99 L (100-108) mmol/L Carbon Dioxide 19 L (21-32) mmol/L Anion Gap 23.4 H (5.0-14.0) mmol/L BUN 7 (7-18) mg/dL Creatinine 0.7 L (0.8-1.3) mg/dL Est Cr Clr Drug Dosing 117.73 mL/min Estimated GFR (MDRD) > 60 (>60) Glucose 143 H (74-106) mg/dL Calcium 7.6 L D (8.5-10.1) mg/dL Total Bilirubin 0.8 D (0.2-1.0) mg/dL AST 63 H (15-37) U/L ALT 47 (12-78) U/L Alkaline Phosphatase 153 H (46-116) U/L Troponin I < 0.017 (0.000-0.056) ng/mL C-Reactive Protein 0.15 (0.0-0.3) mg/dL Total Protein 6.2 L (6.4-8.2) g/dL Albumin 3.3 L (3.4-5.0) g/dL Globulin 2.9 (2.3-3.5) g/dL Albumin/Globulin Ratio 1.1 L (1.2-2.2) Lipase 830 H (73-393) U/L Ethyl Alcohol 396 mg/dL Meds: Medications Generic Name Dose Route Start Last Admin Trade Name Freq PRN Reason Stop Dose Admin Lactated Ringer's 1,000 mls @ 250 mls/hr 05/31/20 01:15 Ringers, Lactated IV 05/31/20 05:14 BOLUS ONE Sodium Chloride 70 mls @ 2.5 mls/sec 05/31/20 01:45 Normal Saline IV ASDIRECTED CAREY Iopamidol 100 ml 05/31/20 01:41 Isovue-300 (61%) IV 06/01/20 01:42 . DIRECTED PRN RADIOLOGY EXAM Sodium Chloride 10 ml 05/30/20 23:51 05/31/20 00:33 Saline Flush FLUSH 10 ml ASDIRECTED PRN Administration Keep Vein Open Sodium Chloride 10 ml 05/31/20 01:41 Saline Flush FLUSH ONETIME PRN per radiology protocol Discontinued Medications Generic Name Dose Route Start Last Admin Trade Name Brook PRN Reason Stop Dose Admin Hydromorphone HCl 1 mg 05/31/20 01:14 05/31/20 01:34 Dilaudid IVPUSH 05/31/20 01:15 1 mg ONETIME ONE Administration Ondansetron HCl 4 mg 05/31/20 01:14 05/31/20 01:31 Zofran IVPUSH 05/31/20 01:15 4 mg ONETIME ONE Administration - Re-Assessments/Exams Free Text/Narrative Re-Assessment/Exam: 05/31/20 04:39 Patient appears comfortable. His prehospital EKGs were reviewed showing sinus tachycardia but no acute ischemic or infarction changes although he does have T wave inversions in lead III. We will evaluate him metabolically. He is uncomfortable and was given 1 mg of Dilaudid and 4 mg of Zofran as IV doses. Later, his lipase was found to be in the mid 800s. Given his presentation, a CT scan of the abdomen and pelvis was ordered however he has only IV access that c ould be obtained was in his thumb. The concern was any attempt to give him IV contrast may result in losing the IV access due to infiltration. The scan was changed to a noncontrast version. Fluids were infusing and he went to CT. There was no CT evidence of pancreatitis based on this scan. X-ray of left rib region did not show any obvious bony abnormality. Returning later, he had fallen asleep in the room after medication. His blood alcohol was 0.39. I returned to review his lab and imaging findings. His heart rate is somewhat lower than it was on arrival. I think he will need admission for management of his pain and what will eventually become alcohol withdrawal. Discussed his case with hospitalist on-call who will arrange admission and further care. 05/31/20 04:40 Departure - Departure Time of Disposition: 04:44 Disposition: Admitted As Inpatient 68 Clinical Impression: Pancreatitis Qualifiers: Chronicity: acute Pancreatitis type: alcohol induced Acute pancreatitis complication: unspecified Qualified Code(s): K85.20 - Alcohol induced acute pancreatitis without necrosis or infection Alcohol intoxication Qualifiers: Complication of substance-induced condition: with unspecified complication Qualified Code(s): F10.929 - Alcohol use, unspecified with intoxication, unspecified Referrals: PCP,None [Primary Care Provider] - Forms: ED Department Discharge Sepsis Event Note (ED) - Evaluation Sepsis Screening Result: No Definite Risk - Focused Exam Vital Signs: Vital Signs Temp Pulse Resp BP Pulse Ox 05/31/20 00:34 36.4 C 116 H 14 144/98 H 98 05/30/20 23:24 36.6 C 121 H 18 170/112 H 95 05/30/20 23:21 36.6 C 121 H 18 170/112 H 95 - My Orders Last 24 Hours: My Active Orders 05/30/20 23:51 Sodium Chloride 0.9% [Saline Flush] 10 ml FLUSH ASDIRECTED PRN Saline Lock Insert [OM.PC] Routine 05/31/20 00:15 Ribs 2V w Chest Lt [CR] Stat 05/31/20 01:15 Lactated Ringers [Ringers, Lactated] 1,000 ml IV BOLUS 05/31/20 01:16 Abdomen Pelvis w Cont [CT] Stat 05/31/20 01:41 Iopamidol [Isovue-300 (61%)] 100 ml IV . DIRECTED PRN Sodium Chloride 0.9% [Saline Flush] 10 ml FLUSH ONETIME PRN 05/31/20 01:45 Sodium Chloride 0.9% [Normal Saline] 70 ml IV ASDIRECTED - Assessment/Plan Last 24 Hours: My Active Orders 05/30/20 23:51 Sodium Chloride 0.9% [Saline Flush] 10 ml FLUSH ASDIRECTED PRN Saline Lock Insert [OM.PC] Routine 05/31/20 00:15 Ribs 2V w Chest Lt [CR] Stat 05/31/20 01:15 Lactated Ringers [Ringers, Lactated] 1,000 ml IV BOLUS 05/31/20 01:16 Abdomen Pelvis w Cont [CT] Stat 05/31/20 01:41 Iopamidol [Isovue-300 (61%)] 100 ml IV . DIRECTED PRN Sodium Chloride 0.9% [Saline Flush] 10 ml FLUSH ONETIME PRN 05/31/20 01:45 Sodium Chloride 0.9% [Normal Saline] 70 ml IV ASDIRECTED
[2020-05-30] MEDS ORDERED: Sodium Chloride 0.9% 10 ML Syringe FLUSH PRN (23:51)
[2020-05-31] MEDS ORDERED: Ondansetron 4 MG/2 ML SDV IVPUSH ONE (01:14)
[2020-05-31] MEDS ORDERED: HYDROmorphone 1 MG/ML Syringe IVPUSH ONE ×2 (01:14→05:36)
[2020-05-31] MEDS ORDERED: Lactated Ringers 1,000 ML IV ONE ×2 (01:15→05:38)
[2020-05-31] MEDS ORDERED: Iopamidol 612 MG/ML 100 ML Bottle IV PRN (01:41)
[2020-05-31] MEDS ORDERED: Sodium Chloride 0.9% 10 ML Syringe FLUSH PRN (01:41)
--- NOTE | 2020-05-31 02:42 | CRLCT ---
INDICATION: Pancreatitis TECHNIQUE: CT abdomen and pelvis acquired without IV contrast. COMPARISON: January 21, 2020 FINDINGS: Lower chest: Unremarkable. Liver: Hepatic steatosis. Spleen: Unremarkable. Pancreas: Unremarkable. Gallbladder and bile ducts: S/p cholecystectomy. Adrenal glands: Unremarkable. Kidneys: Unremarkable. GI tract: Status post gastric bypass. Minimal colonic diverticulosis. Vascular structures: Minimal atherosclerotic calcifications. Lymph nodes: Unremarkable. Miscellaneous: Unremarkable. No free air or significant free fluid. Pelvic Organs: Unremarkable. Bones: Unremarkable for age. IMPRESSION: No CT evidence for pancreatitis. Hepatic steatosis. Minimal colonic diverticulosis. Status post cholecystectomy and gastric bypass procedure. Please note that all CT scans at this facility use dose modulation, iterative reconstruction, and/or weight-based dosing when appropriate to reduce radiation dose to as low as reasonably achievable. Dictated by Katerine Chung MD @ May 31 2020 2:35AM Signed by Dr. Katerine Chung @ May 31 2020 2:40AM
[2020-05-31] MEDS ORDERED: LORazepam 2 MG/ML SDV IVPUSH ONE (04:24)
[2020-05-31] MEDS ORDERED: Diazepam 5 MG Tab PO PRN (06:29)
[2020-05-31] MEDS ORDERED: Ondansetron 4 MG/2 ML SDV IV PRN (06:29)
[2020-05-31] MEDS ORDERED: chlordiazePOXIDE 25 MG Cap PO SCH ×3 (06:30→07:53)
[2020-05-31] MEDS ORDERED: Thiamine 100 MG in Sodium Chloride 0.9% 50 ML IV SCH (06:45)
--- NOTE | 2020-05-31 06:49 | PCM.HP.2 ---
H&P History of Present Illness - General Date of Service: 05/31/20 Admit Problem/Dx: Admission Diagnosis/Problem 1. Acute alcoholic pancreatitis 2. Acute alcohol intoxication 3. Acute alcohol withdrawal Source of Information: Patient History Limitations: Reports: Altered Mental Status, Intoxication - History of Present Illness Initial Comments - Free Text/Narative: Mr. Michael Luna is a 49 yo M who is admitted to [facility] on 31 May 2020 for acute alcohol intoxication, acute pancreatitis, acute withdrawal. The patient is a known chronic alcoholic with prior h/o TBI s/p Subdural hematoma. He has been using vodka chronically and daily for several days and had consumed ~ 1 L vodka on the day of admission. Per the ED the patient's BAL was 0.396, Lipase was 896. The patient, upon evaluation, was noted to be tremulous, exhibiting some memory issues, noting significant chest and abdominal pain. He denies hematemesis, melena, or coffee ground emesis. He is otherwise clinically stable at time of admission. Onset of Symptoms: Reports: Today Duration of Symptoms: Reports: Day(s): Location: Reports: Abdomen chest pain Pain Score (Numeric/FACES): 6 - Related Data Allergies/Adverse Reactions: Allergies Allergy/AdvReac Type Severity Reaction Status Date / Time Penicillins Allergy Hives Verified 05/31/20 00:28 erythromycin base AdvReac Nausea Verified 05/31/20 00:28 Home Medications: Home Meds Metoprolol Tartrate [Lopressor] 12.5 mg PO DAILY 03/29/14 [History] traZODone HCl [Trazodone HCl] 50 mg PO BEDTIME 11/05/16 [History] Dextroamphetamine/Amphetamine [Adderall 20 mg Tablet] 1 tab PO DAILY 01/07/20 [History] FLUoxetine HCl [Prozac] 40 mg PO DAILY 01/07/20 [History] QUEtiapine [SEROquel] 25 mg PO BEDTIME 01/07/20 [History] levETIRAcetam [Keppra] 750 mg PO BID 04/13/20 [History] Past Medical History HEENT History: Reports: Impaired Vision Cardiovascular History: Reports: Arrhythmia, CAD, Hypertension, [place], Other (See Below) Other Cardiovascular History: svt Respiratory History: Reports: Bronchitis, Recurrent Gastrointestinal History: Reports: Diverticulosis Genitourinary History: Reports: Prostate Disorder, Renal Calculus Musculoskeletal History: Reports: Fracture Other Musculoskeletal History: dislocated shoulder Neurological History: Reports: Brain Injury, Concussion Other Neuro History: subderal hematoma Psychiatric History: Reports: Addiction, Anxiety, Depression, Panic Attack, Psych Hospitalization(s), PTSD, Suicide Attempt Other Psychiatric History: Major depressive disorder. ETOH Endocrine/Metabolic History: Reports: Diabetes, Type II, Other (See Below) Other Endocrine/Metabolic History: type II diabetes history Hematologic History: Reports: B12 Deficiency, Folic Acid Immunologic History: Reports: Other (See Below) Other Immunologic History: anaplasmosis, lyme disease Dermatologic History: Reports: Eczema - Infectious Disease History Infectious Disease History: Reports: Chicken Pox - Past Surgical History GI Surgical History: Reports: Bariatric Procedure, Cholecystectomy, Colonoscopy Musculoskeletal Surgical History: Reports: Arthroscopic Knee Social & Family History - Tobacco Use Tobacco Use Status *Q: Unknown Ever Used Tobacco - Caffeine Use Caffeine Use: Reports: Coffee - Recreational Drug Use Recreational Drug Use: No - Living Situation & Occupation Living situation: Reports: with Significant Other (reports is getting divorce from in [place], living with his son.) Occupation: Employed H&P Review of Systems - Review of Systems: Review Of Systems: Comprehensive ROS is negative, except as noted in HPI. Exam - Exam Exam: See Below - Vital Signs Vital Signs: Last Vital Signs Temp 97.8 F 05/31/20 05:52 Pulse 126 H 05/31/20 05:52 Resp 13 05/31/20 05:52 BP 148/89 H 05/31/20 05:52 Pulse Ox 93 L 05/31/20 05:52 Weight: 190 lb - Exam Quality Assessment: DVT Prophylaxis. No: Supplemental Oxygen, Central Line/PICC General: Alert, Oriented, Cooperative, Mild Distress HEENT: PERRLA, Conjunctiva Clear, EOMI, Mucosa Moist & Deans, Posterior Pharynx Clear, Pupils Equal, Pupils Reactive Neck: Supple, Trachea Midline Lungs: Clear to Auscultation, Normal Respiratory Effort Cardiovascular: Regular Rate, Regular Rhythm, Normal S1, Normal S2 GI/Abdominal Exam: Normal Bowel Sounds, Soft, No Distention, No Abnormal Bruit, No Mass, Tender (RUQ/Epigastric). No: Non-Tender, Distended, Guarding, Rigid, Rebound Back Exam: Normal Inspection, Full Range of Motion Extremities: Normal Inspection, Normal Range of Motion, Non-Tender, No Pedal Edema, Normal Capillary Refill Peripheral Pulses: 4+: Posterior Tibial (L), Posterior Tibial (R), Dorsalis Pedis (L), Dorsalis Pedis (R) Skin: Warm, Dry, Intact, Other (There is a slight abrasion over the R forehead that is about 3 inches long) Neurological: Cranial Nerves Intact, Reflexes Equal Bilateral, Strength Equal Bilateral, Normal Speech, Normal Tone Neuro Extensive - Mental Status: Alert, Oriented x3, Normal Mood/Affect, Normal Cognition, Memory Intact Neuro Extensive - Motor, Sensory, Reflexes: CN II-XII Intact, Normal Gait, Normal Reflexes DTR: 2+: Patella (L), Patella (R) Psychiatric: Alert, Normal Affect, Normal Mood - Patient Data Lab Results Last 24 hrs: Laboratory Results - last 24 hr 05/30/20 05/30/20 05/31/20 Range/Units 00:32 00:32 00:30 WBC 9.6 (4.5-11.0) K/uL RBC 5.30 (4.30-5.90) M/uL Hgb 16.1 H (12.0-15.0) g/dL Hct 45.8 (40.0-54.0) % MCV 86 (80-98) fL MCH 30 (27-31) pg MCHC 35 (32-36) % Plt Count 171 (150-400) K/uL Neut % (Auto) 72 H (36-66) % Lymph % (Auto) 20 L (24-44) % Bailey % (Auto) 5 (2-6) % Eos % (Auto) 0 L (2-4) % Baso % (Auto) 2 H (0-1) % Sodium 137 L (140-148) mmol/L Potassium 4.4 (3.6-5.2) mmol/L Chloride 99 L (100-108) mmol/L Carbon Dioxide 19 L (21-32) mmol/L Anion Gap 23.4 H (5.0-14.0) mmol/L BUN 7 (7-18) mg/dL Creatinine 0.7 L (0.8-1.3) mg/dL Est Cr Clr Drug Dosing 117.73 mL/min Estimated GFR (MDRD) > 60 (>60) Glucose 143 H (74-106) mg/dL Calcium 7.6 L D (8.5-10.1) mg/dL Total Bilirubin 0.8 D (0.2-1.0) mg/dL AST 63 H (15-37) U/L ALT 47 (12-78) U/L Alkaline Phosphatase 153 H (46-116) U/L Troponin I < 0.017 (0.000-0.056) ng/mL C-Reactive Protein 0.15 (0.0-0.3) mg/dL Total Protein 6.2 L (6.4-8.2) g/dL Albumin 3.3 L (3.4-5.0) g/dL Globulin 2.9 (2.3-3.5) g/dL Albumin/Globulin Ratio 1.1 L (1.2-2.2) Lipase 830 H (73-393) U/L Ethyl Alcohol 396 mg/dL Result Diagrams: 05/31/20 00:30 05/30/20 00:32 Sepsis Event Note - Evaluation Sepsis Screening Result: No Definite Risk - Focused Exam Vital Signs: Vital Signs Temp Pulse Resp BP Pulse Ox 05/31/20 05:52 97.8 F 126 H 13 148/89 H 93 L 05/31/20 04:26 97.4 F 119 H 14 155/107 H 93 L 05/31/20 00:34 97.6 F 116 H 14 144/98 H 98 05/30/20 23:24 97.9 F 121 H 18 170/112 H 95 05/30/20 23:21 97.9 F 121 H 18 170/112 H 95 Problem List Initiated/Reviewed/Updated: Yes Orders Last 24hrs: Active Orders 24 hr Category Date Time Status Patient Status [ADT] Routine ADT 05/31/20 06:30 Ordered Ambulate [RC] QID Care 05/31/20 06:29 Ordered Ambulate [RC] QID Care 05/31/20 06:29 Ordered Aspiration Precautions [RC] ASDIRECTED Care 05/31/20 06:29 Ordered Assess Neurological Status [RC] ASDIRECTED Care 05/31/20 06:29 Ordered CIWAA Assessment [RC] Q30M Care 05/31/20 06:31 Ordered Cardiac Monitoring [RC] .As Directed Care 05/31/20 06:35 Ordered Height and Weight [RC] DAILY Care 05/31/20 06:29 Ordered Intake and Output [RC] QSHIFT Care 05/31/20 06:35 Ordered Notify Provider [RC] PRN Care 05/31/20 06:30 Ordered Oxygen Therapy [RC] PRN Care 05/31/20 06:30 Ordered Pulse Oximetry [RC] CONTINUOUS Care 05/31/20 06:31 Ordered Up to Chair [RC] QID Care 05/31/20 06:29 Ordered VTE/DVT Education [RC] Per Unit Routine Care 05/31/20 06:30 Ordered Vital Signs [RC] Q4H Care 05/31/20 06:30 Ordered Consult to Case Management/Explosive Technician [CONS] Cons 05/31/20 06:29 Ordered Routine Nothing per Oral Now Diet [DIET] Diet 05/31/20 Breakfast Ordered Ribs 2V w Chest Lt [CR] Stat Exams 05/31/20 00:15 Taken CBC WITH AUTO DIFF [HEME] DAILY Lab 06/01/20 06:30 Ordered CBC WITH AUTO DIFF [HEME] DAILY Lab 06/02/20 06:30 Ordered CBC WITH AUTO DIFF [HEME] DAILY Lab 06/03/20 06:30 Ordered COMPREHENSIVE METABOLIC PN,CMP [CHEM] DAILY Lab 06/01/20 06:30 Ordered COMPREHENSIVE METABOLIC PN,CMP [CHEM] DAILY Lab 06/02/20 06:30 Ordered COMPREHENSIVE METABOLIC PN,CMP [CHEM] DAILY Lab 06/03/20 06:30 Ordered LIPASE [CHEM] Timed Lab 06/01/20 06:39 Ordered Dextroamphetamine/Amphetamine [Adderall 20 mg Tablet] Med 05/31/20 09:00 Ordered 1 tab PO DAILY FLUoxetine [PROzac] Med 05/31/20 09:00 Ordered 40 mg PO DAILY Iopamidol [Isovue-300 (61%)] Med 05/31/20 01:41 Active 100 ml IV . DIRECTED PRN LORazepam [Ativan] Med 05/31/20 06:30 Ordered See Protocol IV ASDIRECTED Lactated Ringers @ 125 MLS/HR(1000ml) Med 05/31/20 06:30 Ordered Lactated Ringers [Ringers, Lactated] 1,000 ml IV ASDIRECTED Lactated Ringers [Ringers, Lactated] 1,000 ml Med 05/31/20 05:38 Active IV BOLUS Metoprolol Tartrate [Lopressor] Med 05/31/20 09:00 Ordered 12.5 mg PO DAILY Ondansetron [Zofran ODT] Med 05/31/20 06:29 Ordered 4 mg PO Q6H PRN Ondansetron [Zofran] Med 05/31/20 06:29 Ordered 4 mg IV Q6H PRN Pantoprazole [ProTONIX IV] Med 05/31/20 06:30 Ordered 40 mg IV Q12H QUEtiapine [SEROqueL] Med 05/31/20 21:00 Ordered 25 mg PO BEDTIME Sodium Chloride 0.9% [Normal Saline] 70 ml Med 05/31/20 01:45 Active IV ASDIRECTED Sodium Chloride 0.9% [Saline Flush] Med 05/30/20 23:51 Active 10 ml FLUSH ASDIRECTED PRN Sodium Chloride 0.9% [Saline Flush] Med 05/31/20 01:41 Active 10 ml FLUSH ONETIME PRN Thiamine [Vitamin B-1] 100 mg Med 05/31/20 06:45 Ordered Sodium Chloride 0.9% [Normal Saline] 50 ml IV DAILY chlordiazePOXIDE [Librium] Med 05/31/20 06:30 Ordered 25 mg PO Q8H chlordiazePOXIDE [Librium] Med 05/31/20 06:30 Ordered See Taper PO ASDIRECTED diazePAM [Valium] Med 05/31/20 06:29 Ordered 5 mg PO ONETIME PRN levETIRAcetam [Keppra] Med 05/31/20 09:00 Ordered 750 mg PO BID traZODone Med 05/31/20 21:00 Ordered 50 mg PO BEDTIME Saline Lock Insert [OM.PC] Routine Oth 05/30/20 23:51 Ordered Seizure Precautions [OM.PC] Routine Oth 05/31/20 06:29 Ordered Sequential Compression Device [OM.PC] Per Unit Routine Oth 05/31/20 06:35 Ordered Resuscitation Status Routine Resus Stat 05/31/20 06:29 Ordered Medication Orders Chlordiazepoxide HCl (Librium) 25 mg PO Q8H CAREY Chlordiazepoxide HCl (Librium) 0 mg PO ASDIRECTED CAREY; Taper Stop: 06/04/20 06:29 Diazepam (Valium.) 5 mg PO ONETIME PRN PRN Reason: Agitation Sodium Chloride (Normal Saline) 70 mls @ 2.5 mls/sec IV ASDIRECTED [facility] Lactated Ringer's (Ringers, Lactated) 1,000 mls @ 250 mls/hr IV BOLUS ONE Stop: 05/31/20 09:37 Last Admin: 05/31/20 05:49 Dose: 250 mls/hr Documented by: MARITZA Lactated Ringer's (Ringers, Lactated) 1,000 mls @ 125 mls/hr IV ASDIRECTED [facility] Thiamine HCl 100 mg/ Sodium (Chloride) 51 mls @ 100 mls/hr IV DAILY CAREY Iopamidol (Isovue-300 (61%)) 100 ml IV . DIRECTED PRN PRN Reason: RADIOLOGY EXAM Stop: 06/01/20 01:42 Lorazepam (Ativan) 0 mg IV ASDIRECTED CAREY; Protocol Non-Formulary Medication (Dextroamphetamine/Amphetamine [Adderall 20 Mg Tablet]) 1 tab PO DAILY CAREY Ondansetron HCl (Zofran) 4 mg IV Q6H PRN PRN Reason: Nausea/Vomiting Ondansetron HCl (Zofran Odt) 4 mg PO Q6H PRN PRN Reason: Nausea able to take PO Pantoprazole Sodium (Protonix Iv) 40 mg IV Q12H CAREY Sodium Chloride (Saline Flush) 10 ml FLUSH ASDIRECTED PRN PRN Reason: Keep Vein Open Last Admin: 05/31/20 00:33 Dose: 10 ml Documented by: MARITZA Sodium Chloride (Saline Flush) 10 ml FLUSH ONETIME PRN PRN Reason: per radiology protocol Assessment/Plan Comment:: Assessment and Plan: 1. HEENT Patient does have an abrasion on the forehead c/w the stated history of a mechanical fall. He has prior h/o TBI d/t SDH. - Routine wound cares to the abrasioon 2. Cardiac Recommend cardiac monitoring in the acute phase - has h/o SVT and dysrhythmia. Takes metoprolol [employer] - Resume [employer] metoprolol - Cardiac monitoring for time being 3. Pulmonary Stable presently If placement contemplated, may benefit from COVID 19 testing 4. F/E/N Has active pancreatitis - NPO - IVF 5. Renal Stable 6. GI Acute pancreatitis d/t acute on chronic EtOH ism. - NPO - Pain control - Serial LFT, Chemistry, Lipase - May advance to clears once pain improved 7. Neuro/Musculoskeletal Patient is currently intoxicated, currently trending towards withdrawal. Patient has long history of this but does not seem to be exhibiting signs of Wernicke's at this time. he is interested in placement in CD treatment and is stating a preference for [facility]. he is rather tremulous at present but not exhibiting any vital instability. - Admit to ICU for monitoring - Librium, ativan for management of withdrawal - Valium also available - NPO d/t pancreatitis but may administer po meds - Discussed with patient, counseled against continued EtOH abuse as being potentially fatal to him. - Patient is expressing interested in CD treatment at [facility] 8. Psychiatric/Mental health No hallucinations noted at present. Disposition: Anticipate CD treatment v Home D/C with outpatient resources Seun Kenney M.D. 31 May 2020 - Mortality Measure Prognosis:: Good
[2020-05-31] MEDS: LORazepam 2 MG/ML SDV IV SCH ×3 (08:24→20:42)
[2020-05-31] MEDS: Pantoprazole 40 MG Vial IV SCH ×2 (08:43→18:04)
[2020-05-31] MEDS: FLUoxetine 20 MG Cap PO SCH (08:44)
[2020-05-31] MEDS: levETIRAcetam 250 MG Tab PO SCH ×2 (08:45→20:42)
[2020-05-31] MEDS: Metoprolol Succinate 25 MG Tab.ER PO SCH (08:48)
[2020-05-31] MEDS ORDERED: [UNRECOGNIZED DRUG - OTHER] PO SCH (09:00)
[2020-05-31] MEDS ORDERED: DEXTROAMPHETAMINE PO SCH (09:00)
[2020-05-31] MEDS ORDERED: Metoprolol Succinate 25 MG Tab.ER PO SCH (09:00)
[2020-05-31] MEDS ORDERED: AMPHETAMINE PO SCH (09:00)
[2020-05-31] MEDS: Ibuprofen 400 MG Tab PO PRN ×2 (11:57→16:11)
[2020-05-31] MEDS: Ondansetron 4 MG Tab.DIS PO PRN ×2 (11:57→18:10)
[2020-05-31] MEDS: Lactated Ringers 1,000 ML IV SCH ×3 (12:18→20:51)
[2020-05-31] MEDS: traZODone 50 MG Tab PO SCH (20:42)
[2020-05-31] MEDS: QUEtiapine 25 MG Tab PO SCH (20:42)
[2020-06-01] MEDS: Ibuprofen 400 MG Tab PO PRN ×2 (00:02→07:14)
[2020-06-01] MEDS: LORazepam 2 MG/ML SDV IV SCH ×2 (00:02→02:50)
[2020-06-01] MEDS: Ondansetron 4 MG Tab.DIS PO PRN ×3 (01:23→19:36)
[2020-06-01] MEDS: Lactated Ringers 1,000 ML IV SCH (04:06)
[2020-06-01] MEDS: Pantoprazole 40 MG Vial IV SCH (06:14)
[2020-06-01] MEDS: Metoprolol Succinate 25 MG Tab.ER PO SCH (08:45)
[2020-06-01] MEDS: FLUoxetine 20 MG Cap PO SCH (08:46)
[2020-06-01] MEDS: levETIRAcetam 250 MG Tab PO SCH ×2 (08:46→21:12)
[2020-06-01] MEDS ORDERED: Amphetamine/Dextroamphetamine Salts 10 MG Tab PO SCH (09:00)
[2020-06-01] MEDS ORDERED: Thiamine 100 MG in Sodium Chloride 0.9% 50 ML IV SCH (09:00)
--- NOTE | 2020-06-01 09:13 | PCM.PN ---
- General Info Date of Service: 06/01/20 Subjective Update: No acute events overnight. Patient has received several doses of lorazepam to manage his alcohol withdrawal. He is complaining of tremors and diaphoresis as well as nausea. He reports severe abdominal pain. Ibuprofen does help slightly. No vomiting. He is tolerating some ice chips. No fevers. Lipase level is more than 2000 today and more than twice as high as yesterday. - Patient Data Vitals - Most Recent: Last Vital Signs Temp 37.3 C 06/01/20 07:25 Pulse 68 06/01/20 08:45 Resp 20 06/01/20 07:25 BP 133/73 06/01/20 08:45 Pulse Ox 98 06/01/20 07:25 Weight - Most Recent: 88.536 kg I&O - Last 24 Hours: Intake & Output 05/31/20 06/01/20 06/01/20 22:59 06:59 14:59 Intake Total 1392 1498 Output Total 475 500 Balance 1392 1023 -500 Lab Results Last 24 Hours: Laboratory Results - last 24 hr 06/01/20 06/01/20 06/01/20 Range/Units 04:25 04:25 04:25 WBC 6.2 (4.5-11.0) K/uL RBC 4.38 (4.30-5.90) M/uL Hgb 12.8 D (12.0-15.0) g/dL Hct 38.8 L (40.0-54.0) % MCV 89 (80-98) fL MCH 29 (27-31) pg MCHC 33 (32-36) % Plt Count 137 L (150-400) K/uL Neut % (Auto) 83 H (36-66) % Lymph % (Auto) 10 L (24-44) % Stanley % (Auto) 5 (2-6) % Eos % (Auto) 2 (2-4) % Baso % (Auto) 1 (0-1) % Sodium 136 L (140-148) mmol/L Potassium 3.3 L (3.6-5.2) mmol/L Chloride 101 (100-108) mmol/L Carbon Dioxide 25 (21-32) mmol/L Anion Gap 13.3 (5.0-14.0) mmol/L BUN 10 (7-18) mg/dL Creatinine 0.8 (0.8-1.3) mg/dL Est Cr Clr Drug Dosing 103.01 mL/min Estimated GFR (MDRD) > 60 (>60) Glucose 106 (74-106) mg/dL Calcium 7.6 L (8.5-10.1) mg/dL Total Bilirubin 1.1 H (0.2-1.0) mg/dL AST 44 H (15-37) U/L ALT 40 (12-78) U/L Alkaline Phosphatase 171 H (46-116) U/L Total Protein 4.9 L (6.4-8.2) g/dL Albumin 2.5 L (3.4-5.0) g/dL Globulin 2.4 (2.3-3.5) g/dL Albumin/Globulin Ratio 1.0 L (1.2-2.2) Lipase 2082 H (73-393) U/L Med Orders - Current: Current Medications Diazepam (Valium.) 5 mg PO ONETIME PRN PRN Reason: Agitation Last Admin: 05/31/20 08:38 Dose: 5 mg Documented by: Fluoxetine HCl (Prozac) 40 mg PO DAILY [facility] S[facility] TO [facility] Last Admin: 06/01/20 08:46 Dose: 40 mg Documented by: Lactated Ringer's (Ringers, Lactated) 1,000 mls @ 125 mls/hr IV ASDIRECTED [facility] Last Admin: 06/01/20 04:06 Dose: 125 mls/hr Documented by: Thiamine HCl 100 mg/ Sodium (Chloride) 51 mls @ 100 mls/hr IV DAILY [facility] Last Admin: 06/01/20 08:45 Dose: 100 mls/hr Documented by: Potassium Chloride 20 meq/Lidocaine HCl 2 ml/ Sodium Chloride 112 mls @ 56 mls/hr IV Q2H [facility] Stop: 06/01/20 13:29 Ibuprofen (Motrin) 600 mg PO Q6H PRN PRN Reason: MILD PAIN (1-3) Levetiracetam (Keppra) 750 mg PO BID [facility] Last Admin: 06/01/20 08:46 Dose: 750 mg Documented by: Lorazepam (Ativan) 0 mg IV ASDIRECTED [facility]; Protocol Last Admin: 06/01/20 02:50 Dose: 2 mg Documented by: Lorazepam (Ativan) 0 mg PO ASDIRECTED [facility]; Protocol Metoprolol Succinate (Toprol Xl) 12.5 mg PO DAILY [facility] Last Admin: 06/01/20 08:45 Dose: 12.5 mg Documented by: Ondansetron HCl (Zofran) 4 mg IV Q6H PRN PRN Reason: Nausea/Vomiting Last Admin: 05/31/20 08:34 Dose: 4 mg Documented by: Ondansetron HCl (Zofran Odt) 4 mg PO Q6H PRN PRN Reason: Nausea able to take PO Last Admin: 06/01/20 01:23 Dose: 4 mg Documented by: Oxycodone HCl (Oxycodone) 5 - 10 mg PO Q4H PRN PRN Reason: Pain Pantoprazole Sodium (Protonix Iv) 40 mg IV Q12H [facility] Last Admin: 06/01/20 06:14 Dose: 40 mg Documented by: Quetiapine Fumarate (Seroquel) 25 mg PO BEDTIME [facility] Last Admin: 05/31/20 20:42 Dose: 25 mg Documented by: Sodium Chloride (Saline Flush) 10 ml FLUSH ONETIME PRN PRN Reason: per radiology protocol Trazodone HCl (Trazodone) 50 mg PO BEDTIME [facility]END[facility] TO [facility] Last Admin: 05/31/20 20:42 Dose: 50 mg Documented by: Discontinued Medications Amphetamine/Dextroamphetamine (Adderall) 20 mg PO DAILY [facility]END[facility] TO [facility] Chlordiazepoxide HCl (Librium) 25 mg PO Q8H [facility]END[facility] Last Admin: 05/31/20 19:09 Dose: Not Given Documented by: Chlordiazepoxide HCl (Librium) 50 mg PO Q4H [facility]; Taper Stop: 06/04/20 06:29 Last Admin: 05/31/20 19:09 Dose: Not Given Documented by: Chlordiazepoxide HCl (Librium) 50 mg PO Q4H [facility]END[facility] TO [facility]; Taper Stop: 06/04/20 07:52 Hydromorphone HCl (Dilaudid) 1 mg IVPUSH ONETIME ONE Stop: 05/31/20 01:15 Last Admin: 05/31/20 01:34 Dose: 1 mg Documented by: Hydromorphone HCl (Dilaudid) 1 mg IVPUSH ONETIME ONE Stop: 05/31/20 05:37 Last Admin: 05/31/20 05:45 Dose: 1 mg Documented by: Lactated Ringer's (Ringers, Lactated) 1,000 mls @ 250 mls/hr IV BOLUS ONE Stop: 05/31/20 05:14 Last Admin: 05/31/20 02:24 Dose: 250 mls/hr Documented by: Sodium Chloride (Normal Saline) 70 mls @ 2.5 mls/sec IV ASDIRECTED [facility] Lactated Ringer's (Ringers, Lactated) 1,000 mls @ 250 mls/hr IV BOLUS ONE Stop: 05/31/20 09:37 Last Admin: 05/31/20 05:49 Dose: 250 mls/hr Documented by: Thiamine HCl 100 mg/ Sodium (Chloride) 51 mls @ 100 mls/hr IV DAILY [facility] Last Admin: 05/31/20 08:50 Dose: 100 mls/hr Documented by: Ibuprofen (Motrin) 400 mg PO Q4H PRN PRN Reason: Abdominal Pain Last Admin: 06/01/20 07:14 Dose: 400 mg Documented by: Iopamidol (Isovue-300 (61%)) 100 ml IV . DIRECTED PRN PRN Reason: RADIOLOGY EXAM Stop: 06/01/20 01:42 Lorazepam (Ativan) 1 mg IVPUSH ONETIME ONE Stop: 05/31/20 04:25 Last Admin: 05/31/20 04:37 Dose: 1 mg Documented by: Metoprolol Succinate (Toprol Xl) 12.5 mg PO DAILY PENDING SALE TO [facility] Non-Formulary Medication (Dextroamphetamine/Amphetamine [Adderall 20 Mg Tablet]) 1 tab PO DAILY PENDING SALE TO [facility] Last Admin: 05/31/20 19:09 Dose: Not Given Documented by: Ondansetron HCl (Zofran) 4 mg IVPUSH ONETIME ONE Stop: 05/31/20 01:15 Last Admin: 05/31/20 01:31 Dose: 4 mg Documented by: Sodium Chloride (Saline Flush) 10 ml FLUSH ASDIRECTED PRN PRN Reason: Keep Vein Open Last Admin: 05/31/20 00:33 Dose: 10 ml Documented by: - Exam Quality Assessment: No: Supplemental Oxygen General: Alert, Oriented, Cooperative, No Acute Distress Neck: Supple Lungs: Clear to Auscultation, Normal Respiratory Effort Cardiovascular: Regular Rate, Regular Rhythm GI/Abdominal Exam: Soft, No Distention, Tender (Moderate epigastric). No: Normal Bowel Sounds (Hypoactive), Guarding Extremities: No Pedal Edema. No: Increased Warmth Skin: Warm, Dry Psy/Mental Status: Alert. No: Anxious, Withdrawal Symptoms Sepsis Event Note - Evaluation Sepsis Screening Result: No Definite Risk - Focused Exam Vital Signs: Vital Signs Temp Pulse Pulse Resp BP BP Pulse Ox 06/01/20 08:45 68 133/73 06/01/20 07:25 37.3 C 20 141/97 H 98 06/01/20 06:00 66 26 H 143/93 H 98 06/01/20 04:00 36.6 C 22 H 143/94 H 98 06/01/20 02:00 22 H 146/95 H 99 06/01/20 00:00 36.9 C 22 H 143/90 H 100 05/31/20 22:00 84 23 H 131/91 H 90 L - Problem List Review Problem List Initiated/Reviewed/Updated: Yes - My Orders Last 24 Hours: My Active Orders 06/01/20 08:30 LORazepam [Ativan] See Protocol PO ASDIRECTED 06/01/20 09:10 oxyCODONE 5 - 10 mg PO Q4H PRN 06/01/20 09:11 Ibuprofen [Motrin] 600 mg PO Q4H PRN 06/01/20 09:30 Potassium Chloride 20 meq Lidocaine 1% [Xylocaine 1%] 2 ml Sodium Chloride 0.9% [Normal Saline] 100 ml IV Q2H - Plan Plan:: ASSESSMENT AND PLAN - Alcohol abuse and withdrawal-withdrawal does not seem to be too impressive at this time. Manifestations include nausea, tremors and diaphoresis. He is receiving some lorazepam. He is interested in treatment and is working with his insurance company hoping to get approved for inpatient treatment. -CIWAA protocol with lorazepam -Melatonin at bedtime -Withdrawal seems fairly mild at this time so I am going to hold off on gabapentin -Supplement thiamine and folate -Encourage inpatient versus intensive outpatient therapy at time of discharge Acute pancreatitis-secondary to alcohol use. Lipase is higher than yesterday. Still having a fair amount of pain which is not controlled with just oral ibuprofen. -Increase pain control regimen -Continue IV fluids -Repeat lipase in the morning Hypokalemia-mild at this time. 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 Maintenance issues - - DVT prophylaxis -mechanical - GI prophylaxis -PPI - Nutrition -nothing by mouth - [place] catheter -not indicated Disposition -I would anticipate discharge home with outpatient alcohol treatment versus inpatient treatment Endy Peralta M.D.
--- NOTE | 2020-06-01 09:39 | CR ---
Ribs 2V w Chest Lt CLINICAL HISTORY: Left chest wall pain, fall FINDINGS: There is no acute fracture within the ribs. No destructive changes are seen. There is no focal pleural thickening or obvious effusion. IMPRESSION: Negative left ribs.
[2020-06-01] MEDS: Potassium Chloride 20 MEQ, Lidocaine 1% 2 ML in Sodium Chloride 0.9% 100 ML IV SCH ×2 (09:44→11:22)
[2020-06-01] MEDS: LORazepam 1 MG Tab PO SCH ×4 (09:45→21:11)
[2020-06-01] MEDS: Folic Acid 1 MG Tab PO SCH (11:22)
[2020-06-01] MEDS: oxyCODONE 5 MG Tab PO PRN ×3 (12:11→21:11)
--- NOTE | 2020-06-01 12:58 | PCM.PN ---
- General Info Date of Service: 06/01/20 Admission Dx/Problem (Free Text): Admission Diagnosis/Problem 1. Acute alcoholic pancreatitis 2. Acute alcohol intoxication 3. Acute alcohol withdrawal Subjective Update: Mr Luna continues to have abdominal pain associated to acute pancreatitis. He rate his pain a 7/10 that is constant. The pain increases with movement and hiccups. Laying still helps to calm the pain slightly. He has been using Ibuprofen which is only mildly helpful in the pain. Oxycodone has been ordered PRN, which he took about an hour ago. He feels that this has helped more than the Ibuprofen. He continues to have nausea despite use of Zofran ODT and Ativan per PRN orders, although he does voice that the nausea is decreased since taking zofran about an hour ago. He has not had emises. He remains on NPO status with ice chips. His withdrawal symptoms include vivid dreams that are frightening, tremulous at rest, nausea, and mild sensitivity to light. He denies auditory or visual hallucinations. He feels that the Ativan PRN being administered is helping in the withdrawal symptoms. Functional Status: Reports: Urinating Pain Score: 7 (see subjective update) - Review of Systems General: Reports: Other (intermittent diaphoresis with withdrawal symptoms). Denies: Weakness, Fatigue, Malaise, Chills HEENT: Reports: No Symptoms Pulmonary: Reports: No Symptoms. Denies: Shortness of Breath Cardiovascular: Reports: No Symptoms. Denies: Chest Pain, Palpitations, Lightheadedness Gastrointestinal: Reports: Abdominal Pain, Nausea. Denies: Difficulty Swallowing, Vomiting Genitourinary: Denies: Dysuria, Frequency, Burning, Pain, Urgency, Incontinence Musculoskeletal: Reports: No Symptoms Skin: Reports: Diaphoresis Neurological: Reports: Tremors. Denies: Confusion, Dizziness, Headache, Tingling, Weakness, Change in Speech, Gait Disturbance Psychiatric: Reports: Anxiety. Denies: Confusion, Hallucinations, Suicidal Ideation - Patient Data Vitals - Most Recent: Last Vital Signs Temp 98.4 F 06/01/20 12:00 Pulse 68 06/01/20 08:45 Resp 18 06/01/20 12:00 BP 163/94 H 06/01/20 12:00 Pulse Ox 100 06/01/20 12:00 Weight - Most Recent: 195 lb 3.015 oz I&O - Last 24 Hours: Intake & Output 05/31/20 06/01/20 06/01/20 22:59 06:59 14:59 Intake Total 1392 1498 Output Total 475 500 Balance 1392 1023 -500 Lab Results Last 24 Hours: Laboratory Results - last 24 hr 06/01/20 06/01/20 06/01/20 Range/Units 04:25 04:25 04:25 WBC 6.2 (4.5-11.0) K/uL RBC 4.38 (4.30-5.90) M/uL Hgb 12.8 D (12.0-15.0) g/dL Hct 38.8 L (40.0-54.0) % MCV 89 (80-98) fL MCH 29 (27-31) pg MCHC 33 (32-36) % Plt Count 137 L (150-400) K/uL Neut % (Auto) 83 H (36-66) % Lymph % (Auto) 10 L (24-44) % [place] % (Auto) 5 (2-6) % Eos % (Auto) 2 (2-4) % Baso % (Auto) 1 (0-1) % Sodium 136 L (140-148) mmol/L Potassium 3.3 L (3.6-5.2) mmol/L Chloride 101 (100-108) mmol/L Carbon Dioxide 25 (21-32) mmol/L Anion Gap 13.3 (5.0-14.0) mmol/L BUN 10 (7-18) mg/dL Creatinine 0.8 (0.8-1.3) mg/dL Est Cr Clr Drug Dosing 103.01 mL/min Estimated GFR (MDRD) > 60 (>60) Glucose 106 (74-106) mg/dL Calcium 7.6 L (8.5-10.1) mg/dL Total Bilirubin 1.1 H (0.2-1.0) mg/dL AST 44 H (15-37) U/L ALT 40 (12-78) U/L Alkaline Phosphatase 171 H (46-116) U/L Total Protein 4.9 L (6.4-8.2) g/dL Albumin 2.5 L (3.4-5.0) g/dL Globulin 2.4 (2.3-3.5) g/dL Albumin/Globulin Ratio 1.0 L (1.2-2.2) Lipase 2082 H (73-393) U/L Med Orders - Current: Current Medications Diazepam (Valium.) 5 mg PO ONETIME PRN PRN Reason: Agitation Last Admin: 05/31/20 08:38 Dose: 5 mg Documented by: Fluoxetine HCl (Prozac) 40 mg PO DAILY [facility] Last Admin: 06/01/20 08:46 Dose: 40 mg Documented by: Folic Acid (Folic Acid) 1 mg PO DAILY [facility] Last Admin: 06/01/20 11:22 Dose: 1 mg Documented by: Potassium Chloride 20 meq/Lidocaine HCl 2 ml/ Sodium Chloride 112 mls @ 56 mls/hr IV Q2H [facility] Stop: 06/01/20 13:29 Last Admin: 06/01/20 11:22 Dose: 56 mls/hr Documented by: Potassium Chloride/Sodium Chloride (1/2 Ns With 20 Meq Kcl) 1,000 mls @ 125 mls/hr IV ASDIRECTED [facility] Ibuprofen (Motrin) 600 mg PO Q6H PRN PRN Reason: MILD PAIN (1-3) Levetiracetam (Keppra) 750 mg PO BID [facility] Last Admin: 06/01/20 08:46 Dose: 750 mg Documented by: Lorazepam (Ativan) 0 mg IV ASDIRECTED [facility]; Protocol Last Admin: 06/01/20 02:50 Dose: 2 mg Documented by: Lorazepam (Ativan) 0 mg PO ASDIRECTED [facility]; Protocol Last Admin: 06/01/20 09:45 Dose: 1 mg Documented by: Melatonin (Melatonin) 9 mg PO BEDTIME [facility] Metoprolol Succinate (Toprol Xl) 12.5 mg PO DAILY [facility] Last Admin: 06/01/20 08:45 Dose: 12.5 mg Documented by: Multivitamins/Iron (Child Chew Iron) 1 tab CHEW DAILY [facility] Ondansetron HCl (Zofran) 4 mg IV Q6H PRN PRN Reason: Nausea/Vomiting Last Admin: 05/31/20 08:34 Dose: 4 mg Documented by: Ondansetron HCl (Zofran Odt) 4 mg PO Q6H PRN PRN Reason: Nausea able to take PO Last Admin: 06/01/20 11:51 Dose: 4 mg Documented by: Oxycodone HCl (Oxycodone) 5 - 10 mg PO Q4H PRN PRN Reason: Pain Last Admin: 06/01/20 12:11 Dose: 5 mg Documented by: Pantoprazole Sodium (Protonix) 40 mg PO ACBREAKFAST [facility] Quetiapine Fumarate (Seroquel) 25 mg PO BEDTIME [facility] Last Admin: 05/31/20 20:42 Dose: 25 mg Documented by: Sodium Chloride (Saline Flush) 10 ml FLUSH ONETIME PRN PRN Reason: per radiology protocol Thiamine HCl (Vitamin B-1) 100 mg PO DAILY [facility] Trazodone HCl (Trazodone) 50 mg PO BEDTIME [facility] Last Admin: 05/31/20 20:42 Dose: 50 mg Documented by: Discontinued Medications Amphetamine/Dextroamphetamine (Adderall) 20 mg PO DAILY [facility] Chlordiazepoxide HCl (Librium) 25 mg PO Q8H [facility] Last Admin: 05/31/20 19:09 Dose: Not Given Documented by: Chlordiazepoxide HCl (Librium) 50 mg PO Q4H [facility]; Taper Stop: 06/04/20 06:29 Last Admin: 05/31/20 19:09 Dose: Not Given Documented by: Chlordiazepoxide HCl (Librium) 50 mg PO Q4H [facility]; Taper Stop: 06/04/20 07:52 Hydromorphone HCl (Dilaudid) 1 mg IVPUSH ONETIME ONE Stop: 05/31/20 01:15 Last Admin: 05/31/20 01:34 Dose: 1 mg Documented by: Hydromorphone HCl (Dilaudid) 1 mg IVPUSH ONETIME ONE Stop: 05/31/20 05:37 Last Admin: 05/31/20 05:45 Dose: 1 mg Documented by: Lactated Ringer's (Ringers, Lactated) 1,000 mls @ 250 mls/hr IV BOLUS ONE Stop: 05/31/20 05:14 Last Admin: 05/31/20 02:24 Dose: 250 mls/hr Documented by: Sodium Chloride (Normal Saline) 70 mls @ 2.5 mls/sec IV ASDIRECTED [facility] Lactated Ringer's (Ringers, Lactated) 1,000 mls @ 250 mls/hr IV BOLUS ONE Stop: 05/31/20 09:37 Last Admin: 05/31/20 05:49 Dose: 250 mls/hr Documented by: Lactated Ringer's (Ringers, Lactated) 1,000 mls @ 125 mls/hr IV ASDIRECTED [facility] Last Admin: 06/01/20 04:06 Dose: 125 mls/hr Documented by: Thiamine HCl 100 mg/ Sodium (Chloride) 51 mls @ 100 mls/hr IV DAILY [facility] Last Admin: 05/31/20 08:50 Dose: 100 mls/hr Documented by: Thiamine HCl 100 mg/ Sodium (Chloride) 51 mls @ 100 mls/hr IV DAILY [facility] Last Admin: 06/01/20 08:45 Dose: 100 mls/hr Documented by: Ibuprofen (Motrin) 400 mg PO Q4H PRN PRN Reason: Abdominal Pain Last Admin: 06/01/20 07:14 Dose: 400 mg Documented by: Iopamidol (Isovue-300 (61%)) 100 ml IV . DIRECTED PRN PRN Reason: RADIOLOGY EXAM Stop: 06/01/20 01:42 Lorazepam (Ativan) 1 mg IVPUSH ONETIME ONE Stop: 05/31/20 04:25 Last Admin: 05/31/20 04:37 Dose: 1 mg Documented by: Metoprolol Succinate (Toprol Xl) 12.5 mg PO DAILY [facility] Non-Formulary Medication (Dextroamphetamine/Amphetamine [Adderall 20 Mg Tablet]) 1 tab PO DAILY [facility] Last Admin: 05/31/20 19:09 Dose: Not Given Documented by: Ondansetron HCl (Zofran) 4 mg IVPUSH ONETIME ONE Stop: 05/31/20 01:15 Last Admin: 05/31/20 01:31 Dose: 4 mg Documented by: Pantoprazole Sodium (Protonix Iv) 40 mg IV Q12H [facility] Last Admin: 06/01/20 06:14 Dose: 40 mg Documented by: Sodium Chloride (Saline Flush) 10 ml FLUSH ASDIRECTED PRN PRN Reason: Keep Vein Open Last Admin: 05/31/20 00:33 Dose: 10 ml Documented by: - Exam General: Alert, Oriented, Cooperative HEENT: Mucous Membr. Moist/Wilber Lungs: Clear to Auscultation, Normal Respiratory Effort. No: Crackles, Rales, Rhonchi, Stridor, Wheezing Cardiovascular: Regular Rate, Regular Rhythm. No: Murmurs, Gallops, Rubs GI/Abdominal Exam: Normal Bowel Sounds, Soft, No Abnormal Bruit, No Mass, Guarding, Tender (Male) Exam: Deferred Back Exam: Normal Inspection, Full Range of Motion Extremities: Normal Inspection, Normal Range of Motion, Non-Tender, No Pedal Edema, Normal Capillary Refill Skin: Warm, Dry, Intact Neurological: No New Focal Deficit, Normal Speech, Strength Equal Bilateral Psy/Mental Status: Alert, Anxious (voices feeling mildly anxious) Sepsis Event Note - Evaluation Sepsis Screening Result: No Definite Risk - Focused Exam Vital Signs: Vital Signs Temp Pulse Pulse Resp BP BP Pulse Ox 06/01/20 12:00 98.4 F 18 163/94 H 100 06/01/20 10:00 12 155/94 H 98 06/01/20 08:45 68 133/73 06/01/20 07:25 99.1 F 20 141/97 H 98 06/01/20 06:00 66 26 H 143/93 H 98 06/01/20 04:00 98 F 22 H 143/94 H 98 06/01/20 02:00 22 H 146/95 H 99 - Problem List Review Problem List Initiated/Reviewed/Updated: Yes - Plan Plan:: Assessment and Plan: ACUTE ALCOHOL WITHDRAWAL - He is currently having mild withdrawal symptoms, without vital sign instability or hallucinations. He is being managed with [facility]WAA protocol. He continues to be interested in inpatient treatment at [facility] due to their cotreatment of TBI. He has concerns for insurance approval for treatment. - Continue [facility]WAA protocol - Potassium supplementation IV - Thiamin changed to po daily - multivitamin PO daily - Folate po daily - Melatonin at bedtime - Consulted with discharge planning to work on insurance and referral to [facility]. PANCREATITIS - acute pancreatitis r/t acute on chronic alcohol abuse. Renal function stable at this time. Lipase and bilirubin trending up. - maintain NPO status with ice chips, will consider advancing diet once pain improves - IV fluids - change to 1/2 NS w/ Potassium d/t hypokalemia - pain control with Ibuprofen and Oxycodone PRN - Lipase and CMP in AM HEENT -Patient does have an abrasion on the forehead consistent with his history of a fall. He has prior h/o TBI d/t SDH. - Routine wound cares to the abrasion CARDIAC - has h/o SVT and dysrhythmia. Currently in normal sinus rhythm. 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
[2020-06-01] MEDS: Sodium Chloride 0.45% with KCl 1,000 ML IV SCH ×2 (13:19→21:11)
[2020-06-01] MEDS: Ibuprofen 600 MG Tab PO PRN (15:33)
[2020-06-01] MEDS: traZODone 50 MG Tab PO SCH (21:12)
[2020-06-01] MEDS: Melatonin 3 MG Tab PO SCH (21:12)
[2020-06-01] MEDS: QUEtiapine 25 MG Tab PO SCH (21:12)
[2020-06-02] MEDS: Ibuprofen 600 MG Tab PO PRN ×4 (01:42→20:38)
[2020-06-02] MEDS: oxyCODONE 5 MG Tab PO PRN ×4 (01:42→18:03)
[2020-06-02] MEDS: LORazepam 1 MG Tab PO SCH ×7 (01:43→23:45)
[2020-06-02] MEDS: Sodium Chloride 0.45% with KCl 1,000 ML IV SCH ×2 (05:03→14:36)
[2020-06-02] MEDS: Ondansetron 4 MG Tab.DIS PO PRN ×2 (06:19→20:38)
[2020-06-02] MEDS: Multivitamins with Iron Tab.Chew CHEW SCH (08:28)
[2020-06-02] MEDS: Pantoprazole 40 MG Tab.CR PO SCH (08:28)
[2020-06-02] MEDS: Folic Acid 1 MG Tab PO SCH (08:28)
[2020-06-02] MEDS: FLUoxetine 20 MG Cap PO SCH (08:29)
[2020-06-02] MEDS: Metoprolol Succinate 25 MG Tab.ER PO SCH (08:32)
[2020-06-02] MEDS: levETIRAcetam 250 MG Tab PO SCH ×2 (08:39→20:38)
[2020-06-02] MEDS: Thiamine 100 MG Tab PO SCH (08:40)
[2020-06-02] MEDS ORDERED: Calcium Carbonate 500 MG Tab.Chew PO PRN (09:37)
--- NOTE | 2020-06-02 09:39 | PCM.PN ---
- General Info Date of Service: 06/02/20 Subjective Update: No acute issues overnight. He did have a low-grade fever but no other associated symptoms. He continues to experience anxiety, diaphoresis and nausea related to his alcohol withdrawal. He continues to experience moderate epigastric abdominal pain that is much worse when he coughs or sneezes. At rest his pain is a moderate achy pain. He has intermittent nausea but has not had any vomiting. He is tolerating some ice chips. No complaints of shortness of breath. Lipase is little bit better today. Pain is about the same as yesterday. Functional Status: Reports: Pain Controlled - Patient Data Vitals - Most Recent: Last Vital Signs Temp 38.2 C H 06/02/20 08:00 Pulse 77 06/02/20 08:32 Resp 15 06/02/20 08:00 BP 157/103 H 06/02/20 08:32 Pulse Ox 98 06/02/20 08:00 Weight - Most Recent: 88.536 kg I&O - Last 24 Hours: Intake & Output 06/01/20 06/02/20 06/02/20 22:59 06:59 14:59 Intake Total 1449 1692 Output Total 500 1040 Balance 949 652 Lab Results Last 24 Hours: Laboratory Results - last 24 hr 06/02/20 06/02/20 06/02/20 Range/Units 05:10 05:15 05:15 WBC 8.0 (4.5-11.0) K/uL RBC 4.42 (4.30-5.90) M/uL Hgb 13.2 (12.0-15.0) g/dL Hct 38.6 L (40.0-54.0) % MCV 87 (80-98) fL MCH 30 (27-31) pg MCHC 34 (32-36) % Plt Count 89 L (150-400) K/uL Sodium 132 L (140-148) mmol/L Potassium 3.6 (3.6-5.2) mmol/L Chloride 98 L (100-108) mmol/L Carbon Dioxide 23 (21-32) mmol/L Anion Gap 14.6 H (5.0-14.0) mmol/L BUN 6 L (7-18) mg/dL Creatinine 0.6 L (0.8-1.3) mg/dL Est Cr Clr Drug Dosing 138.05 mL/min Estimated GFR (MDRD) > 60 (>60) Glucose 77 (74-106) mg/dL Calcium 7.8 L (8.5-10.1) mg/dL Total Bilirubin 1.2 H (0.2-1.0) mg/dL AST 68 H (15-37) U/L ALT 44 (12-78) U/L Alkaline Phosphatase 219 H (46-116) U/L Total Protein 5.2 L (6.4-8.2) g/dL Albumin 2.4 L (3.4-5.0) g/dL Globulin 2.8 (2.3-3.5) g/dL Albumin/Globulin Ratio 0.9 L (1.2-2.2) Lipase 1899 H (73-393) U/L Med Orders - Current: Current Medications Diazepam (Valium.) 5 mg PO ONETIME PRN PRN Reason: Agitation Last Admin: 05/31/20 08:38 Dose: 5 mg Documented by: Fluoxetine HCl (Prozac) 40 mg PO DAILY [facility] Last Admin: 06/02/20 08:29 Dose: 40 mg Documented by: Folic Acid (Folic Acid) 1 mg PO DAILY [facility] Last Admin: 06/02/20 08:28 Dose: 1 mg Documented by: Potassium Chloride/Sodium Chloride (1/2 Ns With 20 Meq Kcl) 1,000 mls @ 125 mls/hr IV ASDIRECTED [facility] Last Admin: 06/02/20 05:03 Dose: 125 mls/hr Documented by: Ibuprofen (Motrin) 600 mg PO Q6H PRN PRN Reason: MILD PAIN (1-3) Last Admin: 06/02/20 08:31 Dose: 600 mg Documented by: Levetiracetam (Keppra) 750 mg PO BID [facility] Last Admin: 06/02/20 08:39 Dose: 750 mg Documented by: Lorazepam (Ativan) 0 mg IV ASDIRECTED [facility]; Protocol Last Admin: 06/01/20 02:50 Dose: 2 mg Documented by: Lorazepam (Ativan) 0 mg PO ASDIRECTED [facility]; Protocol Last Admin: 06/02/20 08:30 Dose: 1 mg Documented by: Melatonin (Melatonin) 9 mg PO BEDTIME [facility] Last Admin: 06/01/20 21:12 Dose: 9 mg Documented by: Metoprolol Succinate (Toprol Xl) 12.5 mg PO DAILY [facility] Last Admin: 06/02/20 08:32 Dose: 12.5 mg Documented by: Multivitamins/Iron (Child Chew Iron) 1 tab CHEW DAILY [facility] Last Admin: 06/02/20 08:28 Dose: 1 tab Documented by: Ondansetron HCl (Zofran) 4 mg IV Q6H PRN PRN Reason: Nausea/Vomiting Last Admin: 05/31/20 08:34 Dose: 4 mg Documented by: Ondansetron HCl (Zofran Odt) 4 mg PO Q6H PRN PRN Reason: Nausea able to take PO Last Admin: 06/02/20 06:19 Dose: 4 mg Documented by: Oxycodone HCl (Oxycodone) 5 - 10 mg PO Q4H PRN PRN Reason: Pain Last Admin: 06/02/20 06:19 Dose: 5 mg Documented by: Pantoprazole Sodium (Protonix) 40 mg PO ACBREAKFAST [facility] Last Admin: 06/02/20 08:28 Dose: 40 mg Documented by: Quetiapine Fumarate (Seroquel) 25 mg PO BEDTIME [facility] Last Admin: 06/01/20 21:12 Dose: 25 mg Documented by: Sodium Chloride (Saline Flush) 10 ml FLUSH ONETIME PRN PRN Reason: per radiology protocol Thiamine HCl (Vitamin B-1) 100 mg PO DAILY [facility] Last Admin: 06/02/20 08:40 Dose: 100 mg Documented by: Trazodone HCl (Trazodone) 50 mg PO BEDTIME [facility] Last Admin: 06/01/20 21:12 Dose: 50 mg Documented by: Discontinued Medications Amphetamine/Dextroamphetamine (Adderall) 20 mg PO DAILY [facility] Chlordiazepoxide HCl (Librium) 25 mg PO Q8H [facility] Last Admin: 05/31/20 19:09 Dose: Not Given Documented by: Chlordiazepoxide HCl (Librium) 50 mg PO Q4H [facility]; Taper Stop: 06/04/20 06:29 Last Admin: 05/31/20 19:09 Dose: Not Given Documented by: Chlordiazepoxide HCl (Librium) 50 mg PO Q4H [facility]; Taper Stop: 06/04/20 07:52 Hydromorphone HCl (Dilaudid) 1 mg IVPUSH ONETIME ONE Stop: 05/31/20 01:15 Last Admin: 05/31/20 01:34 Dose: 1 mg Documented by: Hydromorphone HCl (Dilaudid) 1 mg IVPUSH ONETIME ONE Stop: 05/31/20 05:37 Last Admin: 05/31/20 05:45 Dose: 1 mg Documented by: Lactated Ringer's (Ringers, Lactated) 1,000 mls @ 250 mls/hr IV BOLUS ONE Stop: 05/31/20 05:14 Last Admin: 05/31/20 02:24 Dose: 250 mls/hr Documented by: Sodium Chloride (Normal Saline) 70 mls @ 2.5 mls/sec IV ASDIRECTED [facility] Lactated Ringer's (Ringers, Lactated) 1,000 mls @ 250 mls/hr IV BOLUS ONE Stop: 05/31/20 09:37 Last Admin: 05/31/20 05:49 Dose: 250 mls/hr Documented by: Lactated Ringer's (Ringers, Lactated) 1,000 mls @ 125 mls/hr IV ASDIRECTED [facility] Last Admin: 06/01/20 04:06 Dose: 125 mls/hr Documented by: Thiamine HCl 100 mg/ Sodium (Chloride) 51 mls @ 100 mls/hr IV DAILY [facility] Last Admin: 05/31/20 08:50 Dose: 100 mls/hr Documented by: Thiamine HCl 100 mg/ Sodium (Chloride) 51 mls @ 100 mls/hr IV DAILY [facility] Last Admin: 06/01/20 08:45 Dose: 100 mls/hr Documented by: Potassium Chloride 20 meq/Lidocaine HCl 2 ml/ Sodium Chloride 112 mls @ 56 mls/hr IV Q2H [facility] Stop: 06/01/20 13:29 Last Admin: 06/01/20 11:22 Dose: 56 mls/hr Documented by: Ibuprofen (Motrin) 400 mg PO Q4H PRN PRN Reason: Abdominal Pain Last Admin: 06/01/20 07:14 Dose: 400 mg Documented by: Iopamidol (Isovue-300 (61%)) 100 ml IV . DIRECTED PRN PRN Reason: RADIOLOGY EXAM Stop: 06/01/20 01:42 Lorazepam (Ativan) 1 mg IVPUSH ONETIME ONE Stop: 05/31/20 04:25 Last Admin: 05/31/20 04:37 Dose: 1 mg Documented by: Metoprolol Succinate (Toprol Xl) 12.5 mg PO DAILY [facility] Non-Formulary Medication (Dextroamphetamine/Amphetamine [Adderall 20 Mg Tablet]) 1 tab PO DAILY [facility] Last Admin: 05/31/20 19:09 Dose: Not Given Documented by: Ondansetron HCl (Zofran) 4 mg IVPUSH ONETIME ONE Stop: 05/31/20 01:15 Last Admin: 05/31/20 01:31 Dose: 4 mg Documented by: Pantoprazole Sodium (Protonix Iv) 40 mg IV Q12H [facility] Last Admin: 06/01/20 06:14 Dose: 40 mg Documented by: Sodium Chloride (Saline Flush) 10 ml FLUSH ASDIRECTED PRN PRN Reason: Keep Vein Open Last Admin: 05/31/20 00:33 Dose: 10 ml Documented by: - Exam Quality Assessment: No: Supplemental Oxygen General: Alert, Oriented, Cooperative, No Acute Distress Lungs: Clear to Auscultation, Normal Respiratory Effort Cardiovascular: Regular Rate, Regular Rhythm, No Murmurs GI/Abdominal Exam: Normal Bowel Sounds, Soft, No Distention, Tender (Moderate epigastric tenderness) Extremities: No Pedal Edema. No: Increased Warmth Skin: Warm, Dry Psy/Mental Status: Alert, Normal Affect. No: Agitated Sepsis Event Note - Evaluation Sepsis Screening Result: No Definite Risk - Focused Exam Vital Signs: Vital Signs Temp Pulse Pulse Resp BP BP Pulse Ox 06/02/20 08:32 77 157/103 H 06/02/20 08:00 38.2 C H 93 15 157/103 H 98 06/02/20 05:59 37.8 C 12 160/99 H 98 06/02/20 04:00 37.4 C 21 H 143/89 H 94 L 06/02/20 03:00 38.7 C H 19 132/80 98 06/02/20 02:00 38.6 C H 20 159/96 H 96 06/02/20 01:00 20 149/91 H 98 06/02/20 00:00 23 H 139/87 96 06/01/20 23:02 14 138/84 95 06/01/20 22:00 19 128/93 H 93 L - Problem List Review Problem List Initiated/Reviewed/Updated: Yes - My Orders Last 24 Hours: My Active Orders 06/01/20 09:10 oxyCODONE 5 - 10 mg PO Q4H PRN 06/01/20 09:13 Ibuprofen [Motrin] 600 mg PO Q6H PRN 06/01/20 09:45 Folic Acid 1 mg PO DAILY Sodium Chloride 0.45% with KCl [1/2 NS with 20 mEq KCl] 1,000 ml IV ASDIRECTED 06/01/20 21:00 Melatonin 9 mg PO BEDTIME 06/02/20 07:30 Pantoprazole [ProTONIX] 40 mg PO ACBREAKFAST 06/02/20 09:00 Multivitamins with Iron [Child Chew Iron] 1 tab CHEW DAILY Thiamine [Vitamin B-1] 100 mg PO DAILY 06/02/20 09:37 Calcium Carbonate [Tums] 1,000 mg PO Q2HR PRN 06/02/20 09:45 Sodium Chloride 0.45% with KCl [1/2 NS with 20 mEq KCl] 1,000 ml IV ASDIRECTED 06/03/20 05:00 CBC W/O DIFF,HEMOGRAM [HEME] Timed (1) COMPREHENSIVE METABOLIC PN,CMP [CHEM] Timed LIPASE [CHEM] Timed - Plan Plan:: ASSESSMENT AND PLAN - Alcohol abuse and withdrawal-withdrawal continues but is relatively mild. Still having some nausea, diaphoresis and anxiety. Symptoms seem to be managed with oral lorazepam at this time. -CIWAA protocol with lorazepam -Melatonin at bedtime -Supplement thiamine and folate -Encourage inpatient versus intensive outpatient therapy at time of discharge Acute pancreatitis-secondary to alcohol use. Lipase is slightly better today. Pain is about the same as yesterday. -Continue pain control regimen -Continue IV fluids with decrease in rate -Repeat lipase again in the morning Hypokalemia-improved with supplementation. 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 Maintenance issues - - DVT prophylaxis -mechanical - GI prophylaxis -PPI - Nutrition -nothing by mouth - [place] catheter -not indicated Disposition -I would anticipate discharge home with outpatient alcohol treatment versus inpatient treatment Endy Peralta M.D.
[2020-06-02] MEDS: Melatonin 3 MG Tab PO SCH (20:38)
[2020-06-02] MEDS: traZODone 50 MG Tab PO SCH (20:38)
[2020-06-02] MEDS: QUEtiapine 25 MG Tab PO SCH (20:38)
[2020-06-03] MEDS: LORazepam 1 MG Tab PO SCH ×5 (02:18→22:42)
[2020-06-03] MEDS: Sodium Chloride 0.45% with KCl 1,000 ML IV SCH (04:18)
[2020-06-03] MEDS: Ibuprofen 600 MG Tab PO PRN ×3 (04:23→18:37)
[2020-06-03] MEDS: Pantoprazole 40 MG Tab.CR PO SCH (08:17)
[2020-06-03] MEDS: Folic Acid 1 MG Tab PO SCH (08:18)
[2020-06-03] MEDS: FLUoxetine 20 MG Cap PO SCH (08:18)
[2020-06-03] MEDS: levETIRAcetam 250 MG Tab PO SCH ×2 (08:19→20:57)
[2020-06-03] MEDS: Thiamine 100 MG Tab PO SCH (08:19)
[2020-06-03] MEDS: oxyCODONE 5 MG Tab PO PRN ×2 (08:21→22:42)
[2020-06-03] MEDS: Multivitamins with Iron Tab.Chew CHEW SCH (08:22)
[2020-06-03] MEDS: Metoprolol Succinate 25 MG Tab.ER PO SCH (08:26)
[2020-06-03] MEDS: Potassium Chloride 20 MEQ, Lidocaine 1% 2 ML in Sodium Chloride 0.9% 100 ML IV SCH ×2 (09:38→11:48)
--- NOTE | 2020-06-03 09:42 | PCM.PN ---
- General Info Date of Service: 06/03/20 Subjective Update: There were no acute events overnight. Patient does continue to experience moderate abdominal pain but it is a little better than yesterday. Nausea is better. Diaphoresis and withdrawal symptoms are better. No vomiting. He did have a low fever this morning but no other associated or localizing symptoms. No cough or shortness of breath. Lipase level is down to around 600 today. Functional Status: Reports: Pain Controlled - Review of Systems General: Reports: Fever Pulmonary: Denies: Shortness of Breath Gastrointestinal: Reports: Abdominal Pain - Patient Data Vitals - Most Recent: Last Vital Signs Temp 36.4 C 06/03/20 08:00 Pulse 109 H 06/03/20 08:26 Resp 20 06/03/20 08:00 BP 113/89 06/03/20 08:26 Pulse Ox 95 06/03/20 08:00 Weight - Most Recent: 89.721 kg I&O - Last 24 Hours: Intake & Output 06/02/20 06/03/20 06/03/20 22:59 06:59 14:59 Intake Total 1250 Output Total 1075 Balance 175 Lab Results Last 24 Hours: Laboratory Results - last 24 hr 06/03/20 06/03/20 Range/Units 04:45 04:45 WBC 8.5 (4.5-11.0) K/uL RBC 4.44 (4.30-5.90) M/uL Hgb 13.1 (12.0-15.0) g/dL Hct 38.5 L (40.0-54.0) % MCV 87 (80-98) fL MCH 30 (27-31) pg MCHC 34 (32-36) % Plt Count 85 L (150-400) K/uL Sodium 131 L (140-148) mmol/L Potassium 3.3 L (3.6-5.2) mmol/L Chloride 97 L (100-108) mmol/L Carbon Dioxide 21 (21-32) mmol/L Anion Gap 16.3 H (5.0-14.0) mmol/L BUN 7 (7-18) mg/dL Creatinine 0.6 L (0.8-1.3) mg/dL Est Cr Clr Drug Dosing 138.05 mL/min Estimated GFR (MDRD) > 60 (>60) Glucose 67 L (74-106) mg/dL Calcium 7.9 L (8.5-10.1) mg/dL Total Bilirubin 1.0 (0.2-1.0) mg/dL AST 38 H (15-37) U/L ALT 38 (12-78) U/L Alkaline Phosphatase 199 H (46-116) U/L Total Protein 5.4 L (6.4-8.2) g/dL Albumin 2.4 L (3.4-5.0) g/dL Globulin 3.0 (2.3-3.5) g/dL Albumin/Globulin Ratio 0.8 L (1.2-2.2) Lipase 612 H (73-393) U/L Med Orders - Current: Current Medications Calcium Carbonate/Glycine (Tums) 1,000 mg PO Q2H PRN PRN Reason: Indigestion Last Admin: 06/02/20 10:46 Dose: 1,000 mg Documented by: Diazepam (Valium.) 5 mg PO ONETIME PRN PRN Reason: Agitation Last Admin: 05/31/20 08:38 Dose: 5 mg Documented by: Fluoxetine HCl (Prozac) 40 mg PO DAILY [facility] Last Admin: 06/03/20 08:18 Dose: 40 mg Documented by: Folic Acid (Folic Acid) 1 mg PO DAILY [facility] Last Admin: 06/03/20 08:18 Dose: 1 mg Documented by: Potassium Chloride/Sodium Chloride (1/2 Ns With 20 Meq Kcl) 1,000 mls @ 75 mls/hr IV ASDIRECTED [facility] Stop: 06/03/20 14:00 Last Admin: 06/03/20 04:18 Dose: 75 mls/hr Documented by: Potassium Chloride 20 meq/Lidocaine HCl 2 ml/ Sodium Chloride 112 mls @ 56 mls /hr IV Q2H [facility] Stop: 06/03/20 13:59 Last Admin: 06/03/20 09:38 Dose: 56 mls/hr Documented by: Ibuprofen (Motrin) 600 mg PO Q6H PRN PRN Reason: MILD PAIN (1-3) Last Admin: 06/03/20 04:23 Dose: 600 mg Documented by: Levetiracetam (Keppra) 750 mg PO BID [facility] Last Admin: 06/03/20 08:19 Dose: 750 mg Documented by: Lorazepam (Ativan) 0 mg PO ASDIRECTED [facility]; Protocol Last Admin: 06/03/20 08:18 Dose: 1 mg Documented by: Melatonin (Melatonin) 9 mg PO BEDTIME [facility] Last Admin: 06/02/20 20:38 Dose: 9 mg Documented by: Metoprolol Succinate (Toprol Xl) 12.5 mg PO DAILY [facility] Last Admin: 06/03/20 08:26 Dose: 12.5 mg Documented by: Multivitamins/Iron (Child Chew Iron) 1 tab CHEW DAILY [facility] Last Admin: 06/03/20 08:22 Dose: 1 tab Documented by: Ondansetron HCl (Zofran) 4 mg IV Q6H PRN PRN Reason: Nausea/Vomiting Last Admin: 05/31/20 08:34 Dose: 4 mg Documented by: Ondansetron HCl (Zofran Odt) 4 mg PO Q6H PRN PRN Reason: Nausea able to take PO Last Admin: 06/02/20 20:38 Dose: 4 mg Documented by: Oxycodone HCl (Oxycodone) 5 - 10 mg PO Q4H PRN PRN Reason: Pain Last Admin: 06/03/20 08:21 Dose: 5 mg Documented by: Pantoprazole Sodium (Protonix) 40 mg PO ACBREAKFAST [facility] Last Admin: 06/03/20 08:17 Dose: 40 mg Documented by: Quetiapine Fumarate (Seroquel) 25 mg PO BEDTIME [facility] Last Admin: 06/02/20 20:38 Dose: 25 mg Documented by: Sodium Chloride (Saline Flush) 10 ml FLUSH ONETIME PRN PRN Reason: per radiology protocol Thiamine HCl (Vitamin B-1) 100 mg PO DAILY [facility] Last Admin: 06/03/20 08:19 Dose: 100 mg Documented by: Trazodone HCl (Trazodone) 50 mg PO BEDTIME [facility] Last Admin: 06/02/20 20:38 Dose: 50 mg Documented by: Discontinued Medications Amphetamine/Dextroamphetamine (Adderall) 20 mg PO DAILY [facility] Chlordiazepoxide HCl (Librium) 25 mg PO Q8H [facility] Last Admin: 05/31/20 19:09 Dose: Not Given Documented by: Chlordiazepoxide HCl (Librium) 50 mg PO Q4H [facility]; Taper Stop: 06/04/20 06:29 Last Admin: 05/31/20 19:09 Dose: Not Given Documented by: Chlordiazepoxide HCl (Librium) 50 mg PO Q4H [facility]; Taper Stop: 06/04/20 07:52 Hydromorphone HCl (Dilaudid) 1 mg IVPUSH ONETIME ONE Stop: 05/31/20 01:15 Last Admin: 05/31/20 01:34 Dose: 1 mg Documented by: Hydromorphone HCl (Dilaudid) 1 mg IVPUSH ONETIME ONE Stop: 05/31/20 05:37 Last Admin: 05/31/20 05:45 Dose: 1 mg Documented by: Lactated Ringer's (Ringers, Lactated) 1,000 mls @ 250 mls/hr IV BOLUS ONE Stop: 05/31/20 05:14 Last Admin: 05/31/20 02:24 Dose: 250 mls/hr Documented by: Sodium Chloride (Normal Saline) 70 mls @ 2.5 mls/sec IV ASDIRECTED [facility] Lactated Ringer's (Ringers, Lactated) 1,000 mls @ 250 mls/hr IV BOLUS ONE Stop: 05/31/20 09:37 Last Admin: 05/31/20 05:49 Dose: 250 mls/hr Documented by: Lactated Ringer's (Ringers, Lactated) 1,000 mls @ 125 mls/hr IV ASDIRECTED [facility] Last Admin: 06/01/20 04:06 Dose: 125 mls/hr Documented by: Thiamine HCl 100 mg/ Sodium (Chloride) 51 mls @ 100 mls/hr IV DAILY [facility] Last Admin: 05/31/20 08:50 Dose: 100 mls/hr Documented by: Thiamine HCl 100 mg/ Sodium (Chloride) 51 mls @ 100 mls/hr IV DAILY [facility] Last Admin: 06/01/20 08:45 Dose: 100 mls/hr Documented by: Potassium Chloride 20 meq/Lidocaine HCl 2 ml/ Sodium Chloride 112 mls @ 56 mls/hr IV Q2H [facility] Stop: 06/01/20 13:29 Last Admin: 06/01/20 11:22 Dose: 56 mls/hr Documented by: Potassium Chloride/Sodium Chloride (1/2 Ns With 20 Meq Kcl) 1,000 mls @ 125 mls/hr IV ASDIRECTED [facility] Last Admin: 06/02/20 05:03 Dose: 125 mls/hr Documented by: Ibuprofen (Motrin) 400 mg PO Q4H PRN PRN Reason: Abdominal Pain Last Admin: 06/01/20 07:14 Dose: 400 mg Documented by: Iopamidol (Isovue-300 (61%)) 100 ml IV . DIRECTED PRN PRN Reason: RADIOLOGY EXAM Stop: 06/01/20 01:42 Lorazepam (Ativan) 1 mg IVPUSH ONETIME ONE Stop: 05/31/20 04:25 Last Admin: 05/31/20 04:37 Dose: 1 mg Documented by: Lorazepam (Ativan) 0 mg IV ASDIRECTED [facility]; Protocol Last Admin: 06/01/20 02:50 Dose: 2 mg Documented by: Metoprolol Succinate (Toprol Xl) 12.5 mg PO DAILY [facility] Non-Formulary Medication (Dextroamphetamine/Amphetamine [Adderall 20 Mg Tablet]) 1 tab PO DAILY [facility] Last Admin: 05/31/20 19:09 Dose: Not Given Documented by: Ondansetron HCl (Zofran) 4 mg IVPUSH ONETIME ONE Stop: 05/31/20 01:15 Last Admin: 05/31/20 01:31 Dose: 4 mg Documented by: Pantoprazole Sodium (Protonix Iv) 40 mg IV Q12H [facility] Last Admin: 06/01/20 06:14 Dose: 40 mg Documented by: Sodium Chloride (Saline Flush) 10 ml FLUSH ASDIRECTED PRN PRN Reason: Keep Vein Open Last Admin: 05/31/20 00:33 Dose: 10 ml Documented by: - Exam Quality Assessment: No: Supplemental Oxygen General: Alert, Oriented, Cooperative, No Acute Distress Lungs: Clear to Auscultation, Normal Respiratory Effort Cardiovascular: Regular Rate, Regular Rhythm GI/Abdominal Exam: Normal Bowel Sounds, Soft, No Distention, Tender (epigastric ) Extremities: No Pedal Edema. No: Increased Warmth Skin: Warm, Dry Psy/Mental Status: Alert, Normal Affect. No: Agitated Sepsis Event Note - Evaluation Sepsis Screening Result: No Definite Risk - Focused Exam Vital Signs: Vital Signs Temp Pulse Pulse Resp BP BP Pulse Ox 06/03/20 08:26 109 H 113/89 06/03/20 08:00 36.4 C 90 20 113/89 95 06/03/20 06:00 78 22 H 150/96 H 94 L 06/03/20 04:00 38.5 C H 81 26 H 148/91 H 97 06/03/20 02:00 37.9 C 67 24 H 162/90 H 97 06/03/20 00:00 37.7 C 96 21 H 136/98 H 93 L 06/02/20 22:00 99 21 H 145/101 H 94 L - Problem List Review Problem List Initiated/Reviewed/Updated: Yes - My Orders Last 24 Hours: My Active Orders 06/02/20 09:00 Multivitamins with Iron [Child Chew Iron] 1 tab CHEW DAILY Thi[facility] [Vitamin B-1] 100 mg PO DAILY 06/02/20 09:37 Calcium Carbonate [Tums] 1,000 mg PO Q2H PRN 06/02/20 09:45 Sodium Chloride 0.45% with KCl [1/2 NS with 20 mEq KCl] 1,000 ml IV ASDIRECTED 06/03/20 Breakfast Clear Liquid Diet [DIET] 06/03/20 10:00 Potassium Chloride 20 meq Lidocaine 1% [Xylocaine 1%] 2 ml Sodium Chloride 0.9% [Normal Saline] 100 ml IV Q2H 06/03/20 14:00 Convert IV to Saline Lock [OM.PC] Routine - Plan Plan:: ASSESSMENT AND PLAN - Alcohol abuse and withdrawal-I believe he is nearing the end of his withdrawal which has fortunately been on the mild side. -CIWAA protocol with oral lorazepam -Melatonin at bedtime -Supplement thiamine and folate -Encourage inpatient versus intensive outpatient therapy at time of discharge (patient having no insurance is hampering the treatment plan) Acute pancreatitis-secondary to alcohol use. Lipase is is much improved today but not quite normal. Pain is better today. Patient is interested in a trial of clear liquids. -Continue pain control regimen -Saline lock IV -Trial of clear liquids Hypokalemia-low again this morning. 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 Maintenance issues - - DVT prophylaxis -mechanical - GI prophylaxis -PPI - Nutrition -clear liquids - [place] catheter -not indicated Disposition -I would anticipate discharge home with outpatient alcohol treatment versus inpatient treatment Endy Peralta M.D.
[2020-06-03] MEDS: traZODone 50 MG Tab PO SCH (20:56)
[2020-06-03] MEDS: Melatonin 3 MG Tab PO SCH (20:57)
[2020-06-03] MEDS: QUEtiapine 25 MG Tab PO SCH (20:57)
[2020-06-04] MEDS: oxyCODONE 5 MG Tab PO PRN ×3 (03:10→20:11)
[2020-06-04] MEDS: LORazepam 1 MG Tab PO SCH ×5 (03:10→20:11)
[2020-06-04] MEDS: Pantoprazole 40 MG Tab.CR PO SCH (07:36)
[2020-06-04] MEDS: Thiamine 100 MG Tab PO SCH (08:22)
[2020-06-04] MEDS: Folic Acid 1 MG Tab PO SCH (08:22)
[2020-06-04] MEDS: Metoprolol Succinate 25 MG Tab.ER PO SCH (08:22)
[2020-06-04] MEDS: Multivitamins with Iron Tab.Chew CHEW SCH (08:22)
[2020-06-04] MEDS: levETIRAcetam 250 MG Tab PO SCH ×2 (08:22→20:10)
[2020-06-04] MEDS: FLUoxetine 20 MG Cap PO SCH (08:22)
[2020-06-04] MEDS: Ibuprofen 600 MG Tab PO PRN ×2 (10:09→18:17)
--- NOTE | 2020-06-04 10:39 | PCM.PN ---
- General Info Date of Service: 06/04/20 Subjective Update: There were no acute events overnight. Patient continues to complain of moderate abdominal pain which is slightly better than yesterday. No nausea. Withdrawal symptoms are fair amount better. He did not have any fevers overnight. He gets mildly tachycardic when he is sitting up or standing up. He did slide out of bed onto his buttocks last night but did not have any apparent injuries. Functional Status: Reports: Pain Controlled, Tolerating Diet - Review of Systems General: Denies: Fever Gastrointestinal: Reports: Abdominal Pain - Patient Data Vitals - Most Recent: Last Vital Signs Temp 36.9 C 06/04/20 08:00 Pulse 105 H 06/04/20 08:22 Resp 18 06/04/20 10:00 BP 125/91 H 06/04/20 10:00 Pulse Ox 97 06/04/20 10:00 Weight - Most Recent: 89.721 kg I&O - Last 24 Hours: Intake & Output 06/03/20 06/04/20 06/04/20 22:59 06:59 14:59 Intake Total 840 1680 780 Output Total 1250 650 150 Balance -410 1030 630 Med Orders - Current: Current Medications Calcium Carbonate/Glycine (Tums) 1,000 mg PO Q2H PRN PRN Reason: Indigestion Last Admin: 06/02/20 10:46 Dose: 1,000 mg Documented by: Diazepam (Valium.) 5 mg PO ONETIME PRN PRN Reason: Agitation Last Admin: 05/31/20 08:38 Dose: 5 mg Documented by: Fluoxetine HCl (Prozac) 40 mg PO DAILY [facility] Last Admin: 06/04/20 08:22 Dose: 40 mg Documented by: Folic Acid (Folic Acid) 1 mg PO DAILY [facility] Last Admin: 06/04/20 08:22 Dose: 1 mg Documented by: Ibuprofen (Motrin) 600 mg PO Q6H PRN PRN Reason: MILD PAIN (1-3) Last Admin: 06/04/20 10:09 Dose: 600 mg Documented by: Levetiracetam (Keppra) 750 mg PO BID [facility] Last Admin: 06/04/20 08:22 Dose: 750 mg Documented by: Lorazepam (Ativan) 0 mg PO ASDIRECTED [facility]; Protocol Last Admin: 06/04/20 10:09 Dose: 1 mg Documented by: Melatonin (Melatonin) 9 mg PO BEDTIME [facility] Last Admin: 06/03/20 20:57 Dose: 9 mg Documented by: Metoprolol Succinate (Toprol Xl) 12.5 mg PO DAILY [facility] Last Admin: 06/04/20 08:22 Dose: 12.5 mg Documented by: Multivitamins/Iron (Child Chew Iron) 1 tab CHEW DAILY [facility] Last Admin: 06/04/20 08:22 Dose: 1 tab Documented by: Ondansetron HCl (Zofran) 4 mg IV Q6H PRN PRN Reason: Nausea/Vomiting Last Admin: 05/31/20 08:34 Dose: 4 mg Documented by: Ondansetron HCl (Zofran Odt) 4 mg PO Q6H PRN PRN Reason: Nausea able to take PO Last Admin: 06/02/20 20:38 Dose: 4 mg Documented by: Oxycodone HCl (Oxycodone) 5 - 10 mg PO Q4H PRN PRN Reason: Pain Last Admin: 06/04/20 07:36 Dose: 5 mg Documented by: Pantoprazole Sodium (Protonix) 40 mg PO ACBREAKFAST [facility] Last Admin: 06/04/20 07:36 Dose: 40 mg Documented by: Quetiapine Fumarate (Seroquel) 25 mg PO BEDTIME [facility] Last Admin: 06/03/20 20:57 Dose: 25 mg Documented by: Sodium Chloride (Saline Flush) 10 ml FLUSH ONETIME PRN PRN Reason: per radiology protocol Thiamine HCl (Vitamin B-1) 100 mg PO DAILY [facility] Last Admin: 06/04/20 08:22 Dose: 100 mg Documented by: Trazodone HCl (Trazodone) 50 mg PO BEDTIME [facility] Last Admin: 06/03/20 20:56 Dose: 50 mg Documented by: Discontinued Medications Amphetamine/Dextroamphetamine (Adderall) 20 mg PO DAILY [facility] Chlordiazepoxide HCl (Librium) 25 mg PO Q8H [facility] Last Admin: 05/31/20 19:09 Dose: Not Given Documented by: Chlordiazepoxide HCl (Librium) 50 mg PO Q4H [facility]; Taper Stop: 06/04/20 06:29 Last Admin: 05/31/20 19:09 Dose: Not Given Documented by: Chlordiazepoxide HCl (Librium) 50 mg PO Q4H [facility]; Taper Stop: 06/04/20 07:52 Hydromorphone HCl (Dilaudid) 1 mg IVPUSH ONETIME ONE Stop: 05/31/20 01:15 Last Admin: 05/31/20 01:34 Dose: 1 mg Documented by: Hydromorphone HCl (Dilaudid) 1 mg IVPUSH ONETIME ONE Stop: 05/31/20 05:37 Last Admin: 05/31/20 05:45 Dose: 1 mg Documented by: Lactated Ringer's (Ringers, Lactated) 1,000 mls @ 250 mls/hr IV BOLUS ONE Stop: 05/31/20 05:14 Last Admin: 05/31/20 02:24 Dose: 250 mls/hr Documented by: Sodium Chloride (Normal Saline) 70 mls @ 2.5 mls/sec IV ASDIRECTED [facility] Lactated Ringer's (Ringers, Lactated) 1,000 mls @ 250 mls/hr IV BOLUS ONE Stop: 05/31/20 09:37 Last Admin: 05/31/20 05:49 Dose: 250 mls/hr Documented by: Lactated Ringer's (Ringers, Lactated) 1,000 mls @ 125 mls/hr IV ASDIRECTED [facility] Last Admin: 06/01/20 04:06 Dose: 125 mls/hr Documented by: Thiamine HCl 100 mg/ Sodium (Chloride) 51 mls @ 100 mls/hr IV DAILY [facility] Last Admin: 05/31/20 08:50 Dose: 100 mls/hr Documented by: Thiamine HCl 100 mg/ Sodium (Chloride) 51 mls @ 100 mls/hr IV DAILY [facility] Last Admin: 06/01/20 08:45 Dose: 100 mls/hr Documented by: Potassium Chloride 20 meq/Lidocaine HCl 2 ml/ Sodium Chloride 112 mls @ 56 mls/hr IV Q2H [facility] Stop: 06/01/20 13:29 Last Admin: 06/01/20 11:22 Dose: 56 mls/hr Documented by: Potassium Chloride/Sodium Chloride (1/2 Ns With 20 Meq Kcl) 1,000 mls @ 125 mls/hr IV ASDIRECTED [facility] Last Admin: 06/02/20 05:03 Dose: 125 mls/hr Documented by: Potassium Chloride/Sodium Chloride (1/2 Ns With 20 Meq Kcl) 1,000 mls @ 75 mls/hr IV ASDIRECTED [facility] Stop: 06/03/20 14:00 Last Admin: 06/03/20 04:18 Dose: 75 mls/hr Documented by: Potassium Chloride 20 meq/Lidocaine HCl 2 ml/ Sodium Chloride 112 mls @ 56 mls/hr IV Q2H [facility] Stop: 06/03/20 13:59 Last Admin: 06/03/20 11:48 Dose: 56 mls/hr Documented by: Ibuprofen (Motrin) 400 mg PO Q4H PRN PRN Reason: Abdominal Pain Last Admin: 06/01/20 07:14 Dose: 400 mg Documented by: Iopamidol (Isovue-300 (61%)) 100 ml IV . DIRECTED PRN PRN Reason: RADIOLOGY EXAM Stop: 06/01/20 01:42 Lorazepam (Ativan) 1 mg IVPUSH ONETIME ONE Stop: 05/31/20 04:25 Last Admin: 05/31/20 04:37 Dose: 1 mg Documented by: Lorazepam (Ativan) 0 mg IV ASDIRECTED [facility]; Protocol Last Admin: 06/01/20 02:50 Dose: 2 mg Documented by: Metoprolol Succinate (Toprol Xl) 12.5 mg PO DAILY [facility] Non-Formulary Medication (Dextroamphetamine/Amphetamine [Adderall 20 Mg Tablet]) 1 tab PO DAILY [facility] Last Admin: 05/31/20 19:09 Dose: Not Given Documented by: Ondansetron HCl (Zofran) 4 mg IVPUSH ONETIME ONE Stop: 05/31/20 01:15 Last Admin: 05/31/20 01:31 Dose: 4 mg Documented by: Pantoprazole Sodium (Protonix Iv) 40 mg IV Q12H [facility] Last Admin: 06/01/20 06:14 Dose: 40 mg Documented by: Sodium Chloride (Saline Flush) 10 ml FLUSH ASDIRECTED PRN PRN Reason: Keep Vein Open Last Admin: 05/31/20 00:33 Dose: 10 ml Documented by: - Exam Quality Assessment: No: Supplemental Oxygen General: Alert, Oriented, Cooperative, No Acute Distress Lungs: Clear to Auscultation, Normal Respiratory Effort Cardiovascular: Regular Rate, Regular Rhythm GI/Abdominal Exam: Soft, No Distention, Tender Extremities: No Pedal Edema. No: Increased Warmth Skin: Warm, Dry Psy/Mental Status: Alert, Normal Affect Sepsis Event Note - Evaluation Sepsis Screening Result: No Definite Risk - Focused Exam Vital Signs: Vital Signs Temp Pulse Pulse Resp BP BP Pulse Ox 06/04/20 10:00 18 125/91 H 97 06/04/20 08:22 105 H 162/105 H 06/04/20 08:00 36.9 C 70 14 162/105 H 96 06/04/20 06:00 62 16 159/89 H 97 06/04/20 04:00 35.8 C L 88 16 134/89 96 06/04/20 02:00 57 L 21 H 130/68 96 06/04/20 00:00 35.9 C L 81 17 117/83 94 L 06/03/20 23:00 93 15 130/88 97 - Problem List Review Problem List Initiated/Reviewed/Updated: Yes - My Orders Last 24 Hours: My Active Orders 06/03/20 14:00 Convert IV to Saline Lock [OM.PC] Routine 06/04/20 Lunch Full Liquid Diet [DIET] 06/05/20 05:00 COMPREHENSIVE METABOLIC PN,CMP [CHEM] Timed - Plan Plan:: ASSESSMENT AND PLAN - Alcohol abuse and withdrawal-alcohol withdrawal seems to be complete at this ti ms. -CIWAA protocol with oral lorazepam -Melatonin at bedtime -Supplement thiamine and folate -Encourage intensive outpatient therapy at time of discharge (patient having no insurance is hampering the inpatient treatment plan) Acute pancreatitis-secondary to alcohol use. Lipase had improved but was not rechecked today. Pain is a little better. Patient is tolerating clear liquids. -Continue pain control regimen -Saline lock IV -Trial of full liquids Hypokalemia-improved with supplementation. 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 Maintenance issues - - DVT prophylaxis -mechanical - GI prophylaxis -PPI - Nutrition -full liquids - [place] catheter -not indicated Disposition -I would anticipate discharge home with outpatient alcohol treatment versus less likely inpatient treatment Endy Peralta M.D.
[2020-06-04] MEDS: traZODone 50 MG Tab PO SCH (20:10)
[2020-06-04] MEDS: QUEtiapine 25 MG Tab PO SCH (20:11)
[2020-06-04] MEDS: Melatonin 3 MG Tab PO SCH (20:11)
[2020-06-05] MEDS: oxyCODONE 5 MG Tab PO PRN ×4 (00:15→19:26)
[2020-06-05] MEDS: LORazepam 1 MG Tab PO SCH ×3 (00:16→06:43)
[2020-06-05] MEDS: Ibuprofen 600 MG Tab PO PRN ×2 (02:54→11:14)
[2020-06-05] MEDS ORDERED: Potassium Chloride 20 MEQ Tab.ER PO ONE (06:19)
[2020-06-05] MEDS: Pantoprazole 40 MG Tab.CR PO SCH (07:55)
[2020-06-05] MEDS: Multivitamins with Iron Tab.Chew CHEW SCH (08:08)
[2020-06-05] MEDS: FLUoxetine 20 MG Cap PO SCH (08:08)
[2020-06-05] MEDS: Folic Acid 1 MG Tab PO SCH (08:08)
[2020-06-05] MEDS: Metoprolol Succinate 25 MG Tab.ER PO SCH (08:08)
[2020-06-05] MEDS: levETIRAcetam 250 MG Tab PO SCH ×2 (08:09→20:42)
[2020-06-05] MEDS: Thiamine 100 MG Tab PO SCH (08:09)
--- NOTE | 2020-06-05 08:36 | PCM.PN ---
- General Info Date of Service: 06/05/20 Subjective Update: No acute events overnight. Tolerated full liquids so far. Pain is slightly better today but still moderate. No nausea. No alcohol withdrawal. He has a lot of anxiety today because his son is in intermediate. He is worried about how he is going to stay sober once he gets out of the hospital. Vital signs have been stable. Functional Status: Reports: Pain Controlled, Tolerating Diet - Patient Data Vitals - Most Recent: Last Vital Signs Temp 36.1 C 06/05/20 08:00 Pulse 89 06/05/20 08:08 Resp 12 06/05/20 08:00 BP 162/96 H 06/05/20 08:08 Pulse Ox 98 06/05/20 08:00 Weight - Most Recent: 89.721 kg I&O - Last 24 Hours: Intake & Output 06/04/20 06/05/20 06/05/20 22:59 06:59 14:59 Intake Total 1200 1920 Output Total 1675 550 225 Balance -475 1370 -225 Lab Results Last 24 Hours: Laboratory Results - last 24 hr 06/05/20 Range/Units 05:00 Sodium 136 L (140-148) mmol/L Potassium 3.0 L (3.6-5.2) mmol/L Chloride 103 (100-108) mmol/L Carbon Dioxide 25 (21-32) mmol/L Anion Gap 11.0 (5.0-14.0) mmol/L BUN 3 L D (7-18) mg/dL Creatinine 0.6 L (0.8-1.3) mg/dL Est Cr Clr Drug Dosing 138.05 mL/min Estimated GFR (MDRD) > 60 (>60) Glucose 124 H (74-106) mg/dL Calcium 8.4 L (8.5-10.1) mg/dL Total Bilirubin 0.5 (0.2-1.0) mg/dL AST 21 (15-37) U/L ALT 29 (12-78) U/L Alkaline Phosphatase 155 H (46-116) U/L Total Protein 5.3 L (6.4-8.2) g/dL Albumin 2.3 L (3.4-5.0) g/dL Globulin 3.0 (2.3-3.5) g/dL Albumin/Globulin Ratio 0.8 L (1.2-2.2) Med Orders - Current: Current Medications Calcium Carbonate/Glycine (Tums) 1,000 mg PO Q2H PRN PRN Reason: Indigestion Last Admin: 06/02/20 10:46 Dose: 1,000 mg Documented by: Diazepam (Valium.) 5 mg PO ONETIME PRN PRN Reason: Agitation Last Admin: 05/31/20 08:38 Dose: 5 mg Documented by: Fluoxetine HCl (Prozac) 40 mg PO DAILY [facility] Last Admin: 06/05/20 08:08 Dose: 40 mg Documented by: Folic Acid (Folic Acid) 1 mg PO DAILY [facility] Last Admin: 06/05/20 08:08 Dose: 1 mg Documented by: Ibuprofen (Motrin) 600 mg PO Q6H PRN PRN Reason: MILD PAIN (1-3) Last Admin: 06/05/20 02:54 Dose: 600 mg Documented by: Levetiracetam (Keppra) 750 mg PO BID [facility] Last Admin: 06/05/20 08:09 Dose: 750 mg Documented by: Melatonin (Melatonin) 9 mg PO BEDTIME [facility] Last Admin: 06/04/20 20:11 Dose: 9 mg Documented by: Metoprolol Succinate (Toprol Xl) 12.5 mg PO DAILY [facility] Last Admin: 06/05/20 08:08 Dose: 12.5 mg Documented by: Multivitamins/Iron (Child Chew Iron) 1 tab CHEW DAILY [facility] Last Admin: 06/05/20 08:08 Dose: 1 tab Documented by: Ondansetron HCl (Zofran) 4 mg IV Q6H PRN PRN Reason: Nausea/Vomiting Last Admin: 05/31/20 08:34 Dose: 4 mg Documented by: Ondansetron HCl (Zofran Odt) 4 mg PO Q6H PRN PRN Reason: Nausea able to take PO Last Admin: 06/02/20 20:38 Dose: 4 mg Documented by: Oxycodone HCl (Oxycodone) 5 - 10 mg PO Q4H PRN PRN Reason: Pain Last Admin: 06/05/20 06:43 Dose: 5 mg Documented by: Pantoprazole Sodium (Protonix) 40 mg PO ACBREAKFAST [facility] Last Admin: 06/05/20 07:55 Dose: 40 mg Documented by: Quetiapine Fumarate (Seroquel) 25 mg PO BEDTIME [facility] Last Admin: 06/04/20 20:11 Dose: 25 mg Documented by: Sodium Chloride (Saline Flush) 10 ml FLUSH ONETIME PRN PRN Reason: per radiology protocol Thiamine HCl (Vitamin B-1) 100 mg PO DAILY [facility] Last Admin: 06/05/20 08:09 Dose: 100 mg Documented by: Trazodone HCl (Trazodone) 50 mg PO BEDTIME [facility] Last Admin: 06/04/20 20:10 Dose: 50 mg Documented by: Discontinued Medications Amphetamine/Dextroamphetamine (Adderall) 20 mg PO DAILY [facility] Chlordiazepoxide HCl (Librium) 25 mg PO Q8H [facility] Last Admin: 05/31/20 19:09 Dose: Not Given Documented by: Chlordiazepoxide HCl (Librium) 50 mg PO Q4H [facility]; Taper Stop: 06/04/20 06:29 Last Admin: 05/31/20 19:09 Dose: Not Given Documented by: Chlordiazepoxide HCl (Librium) 50 mg PO Q4H [facility]; Taper Stop: 06/04/20 07:52 Hydromorphone HCl (Dilaudid) 1 mg IVPUSH ONETIME ONE Stop: 05/31/20 01:15 Last Admin: 05/31/20 01:34 Dose: 1 mg Documented by: Hydromorphone HCl (Dilaudid) 1 mg IVPUSH ONETIME ONE Stop: 05/31/20 05:37 Last Admin: 05/31/20 05:45 Dose: 1 mg Documented by: Lactated Ringer's (Ringers, Lactated) 1,000 mls @ 250 mls/hr IV BOLUS ONE Stop: 05/31/20 05:14 Last Admin: 05/31/20 02:24 Dose: 250 mls/hr Documented by: Sodium Chloride (Normal Saline) 70 mls @ 2.5 mls/sec IV ASDIRECTED [facility] Lactated Ringer's (Ringers, Lactated) 1,000 mls @ 250 mls/hr IV BOLUS ONE Stop: 05/31/20 09:37 Last Admin: 05/31/20 05:49 Dose: 250 mls/hr Documented by: Lactated Ringer's (Ringers, Lactated) 1,000 mls @ 125 mls/hr IV ASDIRECTED [facility] Last Admin: 06/01/20 04:06 Dose: 125 mls/hr Documented by: Thiamine HCl 100 mg/ Sodium (Chloride) 51 mls @ 100 mls/hr IV DAILY [facility] Last Admin: 05/31/20 08:50 Dose: 100 mls/hr Documented by: Thiamine HCl 100 mg/ Sodium (Chloride) 51 mls @ 100 mls/hr IV DAILY [facility] Last Admin: 06/01/20 08:45 Dose: 100 mls/hr Documented by: Potassium Chloride 20 meq/Lidocaine HCl 2 ml/ Sodium Chloride 112 mls @ 56 mls/hr IV Q2H [facility] Stop: 06/01/20 13:29 Last Admin: 06/01/20 11:22 Dose: 56 mls/hr Documented by: Potassium Chloride/Sodium Chloride (1/2 Ns With 20 Meq Kcl) 1,000 mls @ 125 mls/hr IV ASDIRECTED [facility] Last Admin: 06/02/20 05:03 Dose: 125 mls/hr Documented by: Potassium Chloride/Sodium Chloride (1/2 Ns With 20 Meq Kcl) 1,000 mls @ 75 mls/hr IV ASDIRECTED [facility] Stop: 06/03/20 14:00 Last Admin: 06/03/20 04:18 Dose: 75 mls/hr Documented by: Potassium Chloride 20 meq/Lidocaine HCl 2 ml/ Sodium Chloride 112 mls @ 56 mls/hr IV Q2H [facility] Stop: 06/03/20 13:59 Last Admin: 06/03/20 11:48 Dose: 56 mls/hr Documented by: Ibuprofen (Motrin) 400 mg PO Q4H PRN PRN Reason: Abdominal Pain Last Admin: 06/01/20 07:14 Dose: 400 mg Documented by: Iopamidol (Isovue-300 (61%)) 100 ml IV . DIRECTED PRN PRN Reason: RADIOLOGY EXAM Stop: 06/01/20 01:42 Lorazepam (Ativan) 1 mg IVPUSH ONETIME ONE Stop: 05/31/20 04:25 Last Admin: 05/31/20 04:37 Dose: 1 mg Documented by: Lorazepam (Ativan) 0 mg IV ASDIRECTED [facility]; Protocol Last Admin: 06/01/20 02:50 Dose: 2 mg Documented by: Lorazepam (Ativan) 0 mg PO ASDIRECTED [facility]; Protocol Last Admin: 06/05/20 06:43 Dose: 1 mg Documented by: Metoprolol Succinate (Toprol Xl) 12.5 mg PO DAILY [facility] Non-Formulary Medication (Dextroamphetamine/Amphetamine [Adderall 20 Mg Tablet]) 1 tab PO DAILY [facility] Last Admin: 05/31/20 19:09 Dose: Not Given Documented by: Ondansetron HCl (Zofran) 4 mg IVPUSH ONETIME ONE Stop: 05/31/20 01:15 Last Admin: 05/31/20 01:31 Dose: 4 mg Documented by: Pantoprazole Sodium (Protonix Iv) 40 mg IV Q12H [facility] Last Admin: 06/01/20 06:14 Dose: 40 mg Documented by: Potassium Chloride (Klor-Con M20) 40 meq PO ONETIME ONE Stop: 06/05/20 06:20 Last Admin: 06/05/20 06:40 Dose: 40 meq Documented by: Sodium Chloride (Saline Flush) 10 ml FLUSH ASDIRECTED PRN PRN Reason: Keep Vein Open Last Admin: 05/31/20 00:33 Dose: 10 ml Documented by: - Exam Quality Assessment: No: Supplemental Oxygen General: Alert, Oriented, Cooperative, No Acute Distress Lungs: Normal Respiratory Effort Cardiovascular: Regular Rate, Regular Rhythm GI/Abdominal Exam: Soft, No Distention Extremities: No Pedal Edema Psy/Mental Status: Alert, Normal Affect Sepsis Event Note - Evaluation Sepsis Screening Result: No Definite Risk - Focused Exam Vital Signs: Vital Signs Temp Pulse Pulse Resp BP BP Pulse Ox 06/05/20 08:08 89 162/96 H 06/05/20 08:00 36.1 C 12 162/96 H 98 06/05/20 06:00 51 L 17 152/99 H 95 06/05/20 04:00 35.9 C L 65 16 144/113 H 96 06/05/20 02:00 68 14 142/103 H 96 06/05/20 00:00 35.9 C L 54 L 20 135/91 H 98 06/04/20 22:00 99 23 H 118/93 H 97 - Problem List Review Problem List Initiated/Reviewed/Updated: Yes - My Orders Last 24 Hours: My Active Orders 06/04/20 Lunch Full Liquid Diet [DIET] 06/05/20 08:35 Transfer Patient (Change bed) [ADT] Routine 06/05/20 08:36 LORazepam [Ativan] 0.5 mg PO Q4H PRN 06/05/20 Lunch Regular Diet [DIET] - Plan Plan:: ASSESSMENT AND PLAN - Alcohol abuse and withdrawal-alcohol withdrawal seems to be complete at this time. -Melatonin at bedtime -Supplement thiamine and folate -Encourage intensive outpatient therapy at time of discharge (patient having no insurance is hampering the inpatient treatment plan) Acute pancreatitis-secondary to alcohol use. Pain is a little better again today. Tolerating full liquids. -Continue pain control regimen -Saline lock IV -Trial of soft foods Hypokalemia-low again this morning. 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 Maintenance issues - - DVT prophylaxis -mechanical - GI prophylaxis -PPI - Nutrition -trial of soft foods - [place] catheter -not indicated Disposition -I would anticipate discharge home with outpatient alcohol treatment tomorrow morning Endy Peralta M.D.
[2020-06-05] MEDS: LORazepam 0.5 MG Tab PO PRN ×3 (11:14→19:25)
[2020-06-05] MEDS: traZODone 50 MG Tab PO SCH (20:42)
[2020-06-05] MEDS: QUEtiapine 25 MG Tab PO SCH (20:42)
[2020-06-05] MEDS: Melatonin 3 MG Tab PO SCH (20:42)
[2020-06-06] MEDS: LORazepam 0.5 MG Tab PO PRN ×2 (01:53→06:58)
[2020-06-06] MEDS: oxyCODONE 5 MG Tab PO PRN (01:53)
[2020-06-06] MEDS: Ibuprofen 600 MG Tab PO PRN (06:58)
[2020-06-06] MEDS: FLUoxetine 20 MG Cap PO SCH (09:22)
[2020-06-06] MEDS: Thiamine 100 MG Tab PO SCH (09:23)
[2020-06-06] MEDS: Folic Acid 1 MG Tab PO SCH (09:23)
[2020-06-06] MEDS: Metoprolol Succinate 25 MG Tab.ER PO SCH (09:23)
[2020-06-06] MEDS: levETIRAcetam 250 MG Tab PO SCH (09:23)
[2020-06-06] MEDS: Multivitamins with Iron Tab.Chew CHEW SCH (09:24)
[2020-06-06] MEDS: Pantoprazole 40 MG Tab.CR PO SCH (09:24)
--- NOTE | 2020-06-06 12:55 | PCM.DCSUM1 ---
Discharge Summary - Hospital Course Brief History: 49-year-old male with history of PTSD, alcohol abuse and dependence, recent subdural hematoma who presented with epigastric abdominal pain and nausea. He was admitted for management of acute pancreatitis as well as alcohol withdrawal syndrome. Diagnosis: Stroke: No - Discharge Data Discharge Date: 06/06/20 Discharge Disposition: Home, Self-Care 01 Condition: Fair - Referral to Home Health Primary Care Physician: PCP None - Patient Summary/Data Consults: Consultations 05/31/20 06:29 Consult to Case Management/Warp Tying Machine Knotter [CONS] Routine Comment: Physician Instructions: Service(s) to be Consulted: Case Manage&Social Servic Reason for Consult: Placement in [facility] Hospital Course: Michael presented to the emergency room with abdominal pain and nausea after an alcohol binge. Work-up in the emergency room suggested acute pancreatitis as well as acute alcohol withdrawal. Lipase was elevated at nearly 900. He had confusion, nausea and tremulousness to raise concern for alcohol withdrawal. He was admitted to the intensive care unit for further management of both of these issues. Initially his pain control consisted of only 400 mg of ibuprofen and this was not sufficient. We did increase to include oral oxycodone. The morning after admission his lipase level had risen to about 2000. His pain was still fairly intense and had not improved much since admission. Over the next couple of days we did see improvement in both his alcohol withdrawal and his pancreatitis. His pain slowly improved. His nausea and tremulousness slowly improved. Vital signs remained stable although he did have a couple of low- grade fevers during the early portion of the hospital stay. I suspect the fevers were related to his pancreatitis as there is no obvious evidence for infection otherwise. Patient has progressed well through the course of the hospital stay. He did have some hypokalemia which has been supplemented. His lipase has improved. We have been able to advance him to a full diet without a ny significant change in his symptoms. We did have a long talk on several different occasions about his alcohol use. I raised my concerns about the frequency with which she has been to the emergency room as well as the frequency and severity of the problems that have led to him in the hospital. He currently does not have health insurance so treatment is not an option at this point. He does state that he will be working hard to get health insurance so he can get into at least a counseling program and hopefully a treatment program for his alcohol use. He is stable and safe for discharge home at this time. He is going to be staying with his mom at least for tonight. He will start working on his insurance application on Monday. - Patient Instructions Diet: Regular Diet as Tolerated Activity: As Tolerated Showering/Bathing: December Shower Notify Provider of: Fever, Increased Pain Other/Special Instructions: 1. You were in the hospital for management of a combination of acute pancreatitis caused by alcohol as well as alcohol withdrawal. Your condition has been improving with supportive care is provided here in the hospital. I strongly recommend complete abstinence from alcohol to avoid recurrence of both of these problems. I would recommend a soft, bland and boring diet for the next week or so as your pancreas recovers from the inflammation caused by excessive alcohol intake. 2. Continue your usual home medications as previously prescribed. 3. Follow up with Dr. Lucio as scheduled on June 15. 4. To find an AA meeting time and location nearby you can call [phone] - Discharge Plan *PRESCRIPTION DRUG MONITORING PROGRAM REVIEWED*: Not Applicable *COPY OF PRESCRIPTION DRUG MONITORING REPORT IN PATIENT LIZA: Not Applicable Home Medications: Home Meds traZODone HCl [Trazodone HCl] 50 mg PO BEDTIME 11/05/16 [History] FLUoxetine HCl [Prozac] 40 mg PO DAILY 01/07/20 [History] QUEtiapine [SEROquel] 25 mg PO BEDTIME 01/07/20 [History] levETIRAcetam [Keppra] 750 mg PO BID 04/13/20 [History] Metoprolol Succinate [Toprol XL] 12.5 mg PO DAILY 05/31/20 [History] Oxygen Therapy Mode: Room Air Patient Handouts: Alcohol Abuse and Dependence Information, Adult, Finding Treatment for Addiction Referrals: Baljeet Lucio MD [Physician] - 06/15/20 1:30 pm (Arrive 15 minutes early to register for your appointment.) - Discharge Summary/Plan Comment DC Time >30 min.: Yes (40-counseling about alchol abuse and community resources ) - Patient Data Vitals - Most Recent: Last Vital Signs Temp 37.4 C 06/06/20 09:00 Pulse 90 06/06/20 09:23 Resp 14 06/06/20 09:00 BP 162/115 H 06/06/20 09:23 Pulse Ox 98 06/06/20 09:00 Weight - Most Recent: 89.721 kg I&O - Last 24 hours: Intake & Output 06/05/20 06/06/20 06/06/20 22:59 06:59 14:59 Intake Total 800 Balance 800 Med Orders - Current: Current Medications Calcium Carbonate/Glycine (Tums) 1,000 mg PO Q2H PRN PRN Reason: Indigestion Last Admin: 06/02/20 10:46 Dose: 1,000 mg Documented by: Diazepam (Valium.) 5 mg PO ONETIME PRN PRN Reason: Agitation Last Admin: 05/31/20 08:38 Dose: 5 mg Documented by: Fluoxetine HCl (Prozac) 40 mg PO DAILY [facility] Last Admin: 06/06/20 09:22 Dose: 40 mg Documented by: Folic Acid (Folic Acid) 1 mg PO DAILY [facility] Last Admin: 06/06/20 09:23 Dose: 1 mg Documented by: Ibuprofen (Motrin) 600 mg PO Q6H PRN PRN Reason: MILD PAIN (1-3) Last Admin: 06/06/20 06:58 Dose: 600 mg Documented by: Levetiracetam (Keppra) 750 mg PO BID [facility] Last Admin: 06/06/20 09:23 Dose: 750 mg Documented by: Lorazepam (Ativan) 0.5 mg PO Q4H PRN PRN Reason: anxiety Last Admin: 06/06/20 06:58 Dose: 0.5 mg Documented by: Melatonin (Melatonin) 9 mg PO BEDTIME [facility] Last Admin: 06/05/20 20:42 Dose: 9 mg Documented by: Metoprolol Succinate (Toprol Xl) 12.5 mg PO DAILY [facility] Last Admin: 06/06/20 09:23 Dose: 12.5 mg Documented by: Multivitamins/Iron (Child Chew Iron) 1 tab CHEW DAILY [facility] Last Admin: 06/06/20 09:24 Dose: 1 tab Documented by: Ondansetron HCl (Zofran) 4 mg IV Q6H PRN PRN Reason: Nausea/Vomiting Last Admin: 05/31/20 08:34 Dose: 4 mg Documented by: Ondansetron HCl (Zofran Odt) 4 mg PO Q6H PRN PRN Reason: Nausea able to take PO Last Admin: 06/02/20 20:38 Dose: 4 mg Documented by: Oxycodone HCl (Oxycodone) 5 - 10 mg PO Q4H PRN PRN Reason: Pain Last Admin: 06/06/20 01:53 Dose: 5 mg Documented by: Pantoprazole Sodium (Protonix) 40 mg PO ACBREAKFAST [facility] Last Admin: 06/06/20 09:24 Dose: 40 mg Documented by: Quetiapine Fumarate (Seroquel) 25 mg PO BEDTIME [facility] Last Admin: 06/05/20 20:42 Dose: 25 mg Documented by: Sodium Chloride (Saline Flush) 10 ml FLUSH ONETIME PRN PRN Reason: per radiology protocol Thiamine HCl (Vitamin B-1) 100 mg PO DAILY [facility] Last Admin: 06/06/20 09:23 Dose: 100 mg Documented by: Trazodone HCl (Trazodone) 50 mg PO BEDTIME [facility] Last Admin: 06/05/20 20:42 Dose: 50 mg Documented by: Discontinued Medications Amphetamine/Dextroamphetamine (Adderall) 20 mg PO DAILY [facility] Chlordiazepoxide HCl (Librium) 25 mg PO Q8H [facility] Last Admin: 05/31/20 19:09 Dose: Not Given Documented by: Chlordiazepoxide HCl (Librium) 50 mg PO Q4H [facility]; Taper Stop: 06/04/20 06:29 Last Admin: 05/31/20 19:09 Dose: Not Given Documented by: Chlordiazepoxide HCl (Librium) 50 mg PO Q4H [facility]; Taper Stop: 06/04/20 07:52 Hydromorphone HCl (Dilaudid) 1 mg IVPUSH ONETIME ONE Stop: 05/31/20 01:15 Last Admin: 05/31/20 01:34 Dose: 1 mg Documented by: Hydromorphone HCl (Dilaudid) 1 mg IVPUSH ONETIME ONE Stop: 05/31/20 05:37 Last Admin: 05/31/20 05:45 Dose: 1 mg Documented by: Lactated Ringer's (Ringers, Lactated) 1,000 mls @ 250 mls/hr IV BOLUS ONE Stop: 05/31/20 05:14 Last Admin: 05/31/20 02:24 Dose: 250 mls/hr Documented by: Sodium Chloride (Normal Saline) 70 mls @ 2.5 mls/sec IV ASDIRECTED [facility] Lactated Ringer's (Ringers, Lactated) 1,000 mls @ 250 mls/hr IV BOLUS ONE Stop: 05/31/20 09:37 Last Admin: 05/31/20 05:49 Dose: 250 mls/hr Documented by: Lactated Ringer's (Ringers, Lactated) 1,000 mls @ 125 mls/hr IV ASDIRECTED [facility] Last Admin: 06/01/20 04:06 Dose: 125 mls/hr Documented by: Thiamine HCl 100 mg/ Sodium (Chloride) 51 mls @ 100 mls/hr IV DAILY [facility] Last Admin: 05/31/20 08:50 Dose: 100 mls/hr Documented by: Thiamine HCl 100 mg/ Sodium (Chloride) 51 mls @ 100 mls/hr IV DAILY [facility] Last Admin: 06/01/20 08:45 Dose: 100 mls/hr Documented by: Potassium Chloride 20 meq/Lidocaine HCl 2 ml/ Sodium Chloride 112 mls @ 56 mls/hr IV Q2H [facility] Stop: 06/01/20 13:29 Last Admin: 06/01/20 11:22 Dose: 56 mls/hr Documented by: Potassium Chloride/Sodium Chloride (1/2 Ns With 20 Meq Kcl) 1,000 mls @ 125 mls/hr IV ASDIRECTED [facility] Last Admin: 06/02/20 05:03 Dose: 125 mls/hr Documented by: Potassium Chloride/Sodium Chloride (1/2 Ns With 20 Meq Kcl) 1,000 mls @ 75 mls/hr IV ASDIRECTED [facility] Stop: 06/03/20 14:00 Last Admin: 06/03/20 04:18 Dose: 75 mls/hr Documented by: Potassium Chloride 20 meq/Lidocaine HCl 2 ml/ Sodium Chloride 112 mls @ 56 mls/hr IV Q2H [facility] Stop: 06/03/20 13:59 Last Admin: 06/03/20 11:48 Dose: 56 mls/hr Documented by: Ibuprofen (Motrin) 400 mg PO Q4H PRN PRN Reason: Abdominal Pain Last Admin: 06/01/20 07:14 Dose: 400 mg Documented by: Iopamidol (Isovue-300 (61%)) 100 ml IV . DIRECTED PRN PRN Reason: RADIOLOGY EXAM Stop: 06/01/20 01:42 Lorazepam (Ativan) 1 mg IVPUSH ONETIME ONE Stop: 05/31/20 04:25 Last Admin: 05/31/20 04:37 Dose: 1 mg Documented by: Lorazepam (Ativan) 0 mg IV ASDIRECTED [facility]; Protocol Last Admin: 06/01/20 02:50 Dose: 2 mg Documented by: Lorazepam (Ativan) 0 mg PO ASDIRECTED [facility]; Protocol Last Admin: 06/05/20 06:43 Dose: 1 mg Documented by: Metoprolol Succinate (Toprol Xl) 12.5 mg PO DAILY [facility] Non-Formulary Medication (Dextroamphetamine/Amphetamine [Adderall 20 Mg Tablet]) 1 tab PO DAILY [facility] Last Admin: 05/31/20 19:09 Dose: Not Given Documented by: Ondansetron HCl (Zofran) 4 mg IVPUSH ONETIME ONE Stop: 05/31/20 01:15 Last Admin: 05/31/20 01:31 Dose: 4 mg Documented by: Pantoprazole Sodium (Protonix Iv) 40 mg IV Q12H [facility] Last Admin: 06/01/20 06:14 Dose: 40 mg Documented by: Potassium Chloride (Klor-Con M20) 40 meq PO ONETIME ONE Stop: 06/05/20 06:20 Last Admin: 06/05/20 06:40 Dose: 40 meq Documented by: Sodium Chloride (Saline Flush) 10 ml FLUSH ASDIRECTED PRN PRN Reason: Keep Vein Open Last Admin: 05/31/20 00:33 Dose: 10 ml Documented by:
[2020-06-06 14:06] VITALS: BP 137/88; PULSE 102
== END 2020-06-06 15:01 | disposition home or self-care (01) | DRG 439 ==
LOC: JP.ED 23:19 → JP.ICU 05-31 06:29
PROVIDERS: ADMIT Family Medicine; ATTEND Internal Medicine
DX: K85.20 Alcohol induced acute pancreatitis without necrosis or infection (principal); F10.139 Alcohol abuse with withdrawal, unspecified; F43.12 Post-traumatic stress disorder, chronic; Z90.49 Acquired absence of other specified parts of digestive tract; I25.10 Atherosclerotic heart disease of native coronary artery without angina pectoris; I25.2 Old myocardial infarction; F32.9 Major depressive disorder, single episode, unspecified; F41.9 Anxiety disorder, unspecified; E11.9 Type 2 diabetes mellitus without complications; F10.129 Alcohol abuse with intoxication, unspecified
CPT/HCPCS: 36415; 71101-26-LT; 71101-LT; 74176; 80053; 80307; 83690; 84484; 85025; 85027; 86140; 93005; 93010; 96374; 96375; 96376; 99284; 99285-25; A9270-GY; C9113; J1170; J2001; J2060; J2405; J3411; J3480; J7120

== ENCOUNTER 2020-06-09 11:08 | Observation (INO) | payer OTHER ==
--- NOTE | 2020-06-09 11:42 | EDM.PDOC ---
ED HPI GENERAL MEDICAL PROBLEM - General Chief Complaint: Neurological Problem Stated Complaint: depression Time Seen by Provider: 06/09/20 11:42 Source of Information: Reports: Patient History Limitations: Reports: No Limitations - History of Present Illness INITIAL COMMENTS - FREE TEXT/NARRATIVE: pt has at 1 drink in the past 11 days. He has along history of etoh abuse. Since last nite he has had periods where he does not respond normally. He just stares into space. He has been nauseated and wretching. There is no true seizure activity. Duration: Hour(s): Location: Reports: Head, Generalized Improves with: Reports: None Worsens with: Reports: None Associated Symptoms: Reports: Confusion, Nausea/Vomiting Abdominal Pain Score (Numeric/FACES): 7 - Related Data Allergies Allergy/AdvReac Type Severity Reaction Status Date / Time Penicillins Allergy Hives Verified 06/09/20 11:27 erythromycin base AdvReac Nausea Verified 06/09/20 11:27 Home Meds: Home Meds traZODone HCl [Trazodone HCl] 50 mg PO BEDTIME 11/05/16 [History] FLUoxetine HCl [Prozac] 40 mg PO DAILY 01/07/20 [History] QUEtiapine [SEROquel] 25 mg PO BEDTIME 01/07/20 [History] levETIRAcetam [Keppra] 750 mg PO BID 04/13/20 [History] Metoprolol Succinate [Toprol XL] 12.5 mg PO DAILY 05/31/20 [History] Past Medical History HEENT History: Reports: Impaired Vision Cardiovascular History: Reports: Arrhythmia, CAD, Hypertension, [place], Other (See Below) Other Cardiovascular History: svt Respiratory History: Reports: Bronchitis, Recurrent Gastrointestinal History: Reports: Diverticulosis, Pancreatitis Genitourinary History: Reports: Prostate Disorder, Renal Calculus Musculoskeletal History: Reports: Fracture Other Musculoskeletal History: dislocated shoulder Neurological History: Reports: Brain Injury, Concussion Other Neuro History: subderal hematoma Psychiatric History: Reports: Addiction, Anxiety, Depression, Panic Attack, Psych Hospitalization(s), PTSD, Suicide Attempt Other Psychiatric History: Major depressive disorder. ETOH Endocrine/Metabolic History: Reports: Diabetes, Type II, Other (See Below) Other Endocrine/Metabolic History: type II diabetes history Hematologic History: Reports: B12 Deficiency, Folic Acid Immunologic History: Reports: Other (See Below) Other Immunologic History: anaplasmosis, lyme disease Dermatologic History: Reports: Eczema - Infectious Disease History Infectious Disease History: Reports: Chicken Pox - Past Surgical History GI Surgical History: Reports: Bariatric Procedure, Cholecystectomy, Colonoscopy Musculoskeletal Surgical History: Reports: Arthroscopic Knee Social & Family History - Caffeine Use Caffeine Use: Reports: Coffee - Living Situation & Occupation Living situation: Reports: with Significant Other (reports is getting divorce from in [place], living with his son.) Occupation: Employed ED ROS GENERAL - Review of Systems Review Of Systems: See Below Constitutional: Reports: No Symptoms HEENT: Reports: No Symptoms Respiratory: Reports: No Symptoms Cardiovascular: Reports: Other (slow heart rate in he 40s, ) Endocrine: Reports: No Symptoms GI/Abdominal: Reports: No Symptoms, Nausea : Reports: No Symptoms Musculoskeletal: Reports: No Symptoms Skin: Reports: No Symptoms - Physical Exam Exam: See Below Text/Narrative:: pt arrived because he is having episodes where he is not responding. This started last nit. It is 11 days since he drank etoh except for 1 small drink. He was just discharged from our hosp on the . He is wretching at times and his heart rate is getting slow. Exam Limited By: Altered Mental Status General Appearance: Alert, Other (pt arrived with a history ) Ears: Normal External Exam Nose: Normal Inspection Throat/Mouth: Normal Inspection Head Exam: Atraumatic Neck: Normal Inspection Respiratory/Chest: No Respiratory Distress Cardiovascular: Regular Rate, Rhythm, Bradycardia, Other (pt had a hr of 40. ) GI/Abdominal: Soft, Tender, Other ( tender in the epigastric area. ) (Male) Exam: Deferred Rectal (Males) Exam: Deferred Neuro Exam (Abbreviated): Alert, Oriented, Normal Cognition, Other (pt is having periods when he is not responding. ) Back Exam: Normal Inspection Extremities: Normal Inspection Psychiatric: Depressed Mood Course - Vital Signs Last Recorded V/S: Last Vital Signs Temp 37.8 C 06/09/20 11:43 Pulse 60 06/09/20 15:39 Resp 16 06/09/20 11:43 BP 146/94 H 06/09/20 15:39 Pulse Ox 97 06/09/20 15:39 - Orders/Labs/Meds Orders: Active Orders 24 hr Category Date Time Status Cardiac Monitoring [RC] .As Directed Care 06/09/20 12:06 Active EKG Documentation Completion [RC] ASDIRECTED Care 06/09/20 13:00 Active Acetaminophen [Tylenol] Med 06/09/20 12:55 Active 650 mg PO Q6H PRN Potassium Chloride [Klor-Con M20] Med 06/09/20 17:20 Once 20 meq PO ONETIME ONE Sodium Chloride 0.9% [Normal Saline] 1,000 ml Med 06/09/20 11:45 Active IV ASDIRECTED EKG 12 Lead [EK] Routine Ther 06/09/20 13:00 Ordered Medication Orders Acetaminophen (Tylenol) 650 mg PO Q6H PRN PRN Reason: Anxiety Last Admin: 06/09/20 14:31 Dose: 650 mg Documented by: PREILOR Sodium Chloride (Normal Saline) 1,000 mls @ 999 mls/hr IV ASDIRECTED CAREY Last Admin: 06/09/20 11:59 Dose: 999 mls/hr Documented by: PREILOR Potassium Chloride (Klor-Con M20) 20 meq PO ONETIME ONE Stop: 06/09/20 17:21 Labs: Laboratory Tests 06/09/20 06/09/20 06/09/20 Range/Units 11:50 11:50 11:50 WBC 9.6 (4.5-11.0) K/uL RBC 4.55 (4.30-5.90) M/uL Hgb 13.5 (12.0-15.0) g/dL Hct 39.4 L (40.0-54.0) % MCV 87 (80-98) fL MCH 30 (27-31) pg MCHC 34 (32-36) % Plt Count 312 (150-400) K/uL Neut % (Auto) 73 H (36-66) % Lymph % (Auto) 13 L (24-44) % [place] % (Auto) 12 H (2-6) % Eos % (Auto) 1 L (2-4) % Baso % (Auto) 1 (0-1) % Sodium 137 L (140-148) mmol/L Potassium 2.8 L* (3.6-5.2) mmol/L Chloride 103 (100-108) mmol/L Carbon Dioxide 24 (21-32) mmol/L Anion Gap 12.8 (5.0-14.0) mmol/L BUN 3 L (7-18) mg/dL Creatinine 0.8 (0.8-1.3) mg/dL Est Cr Clr Drug Dosing 103.01 mL/min Estimated GFR (MDRD) > 60 (>60) Glucose 135 H (74-106) mg/dL Calcium 8.6 (8.5-10.1) mg/dL Total Bilirubin 0.6 (0.2-1.0) mg/dL AST 19 (15-37) U/L ALT 35 (12-78) U/L Alkaline Phosphatase 158 H (46-116) U/L Total Protein 5.8 L (6.4-8.2) g/dL Albumin 3.0 L (3.4-5.0) g/dL Globulin 2.8 (2.3-3.5) g/dL Albumin/Globulin Ratio 1.1 L (1.2-2.2) Amylase 68 (25-115) U/L Lipase 223 (73-393) U/L Urine Color (YELLOW) Urine Appearance (CLEAR) Urine pH (5.0-8.0) Ur Specific [place] (1.008-1.030) Urine Protein (NEGATIVE) mg/dL Urine Glucose (UA) (NEGATIVE) mg/dL Urine Ketones (NEGATIVE) mg/dL Urine Occult Blood (NEGATIVE) Urine Nitrite (NEGATIVE) Urine Bilirubin (NEGATIVE) Urine Urobilinogen (0.2-1.0) EU/dL Ur Leukocyte Esterase (NEGATIVE) Urine RBC (0-5) Urine WBC (0-5) Ur Epithelial Cells Amorphous Sediment Urine Bacteria Urine Mucus Ethyl Alcohol mg/dL 06/09/20 06/09/20 Range/Units 11:50 12:34 WBC (4.5-11.0) K/uL RBC (4.30-5.90) M/uL Hgb (12.0-15.0) g/dL Hct (40.0-54.0) % MCV (80-98) fL MCH (27-31) pg MCHC (32-36) % Plt Count (150-400) K/uL Neut % (Auto) (36-66) % Lymph % (Auto) (24-44) % [place] % (Auto) (2-6) % Eos % (Auto) (2-4) % Baso % (Auto) (0-1) % Sodium (140-148) mmol/L Potassium (3.6-5.2) mmol/L Chloride (100-108) mmol/L Carbon Dioxide (21-32) mmol/L Anion Gap (5.0-14.0) mmol/L BUN (7-18) mg/dL Creatinine (0.8-1.3) mg/dL Est Cr Clr Drug Dosing mL/min Estimated GFR (MDRD) (>60) Glucose (74-106) mg/dL Calcium (8.5-10.1) mg/dL Total Bilirubin (0.2-1.0) mg/dL AST (15-37) U/L ALT (12-78) U/L Alkaline Phosphatase (46-116) U/L Total Protein (6.4-8.2) g/dL Albumin (3.4-5.0) g/dL Globulin (2.3-3.5) g/dL Albumin/Globulin Ratio (1.2-2.2) Amylase (25-115) U/L Lipase (73-393) U/L Urine Color Yellow (YELLOW) Urine Appearance Clear (CLEAR) Urine pH 7.5 (5.0-8.0) Ur Specific [place] 1.015 (1.008-1.030) Urine Protein Negative (NEGATIVE) mg/dL Urine Glucose (UA) Negative (NEGATIVE) mg/dL Urine Ketones Negative (NEGATIVE) mg/dL Urine Occult Blood Negative (NEGATIVE) Urine Nitrite Negative (NEGATIVE) Urine Bilirubin Negative (NEGATIVE) Urine Urobilinogen 0.2 (0.2-1.0) EU/dL Ur Leukocyte Esterase Negative (NEGATIVE) Urine RBC Not seen (0-5) Urine WBC Not seen (0-5) Ur Epithelial Cells Not seen Amorphous Sediment Not seen Urine Bacteria Not seen Urine Mucus Not seen Ethyl Alcohol < 3 mg/dL Meds: Medications Generic Name Dose Route Start Last Admin Trade Name Freq PRN Reason Stop Dose Admin Acetaminophen 650 mg 06/09/20 12:55 06/09/20 14:31 Tylenol PO 650 mg Q6H PRN Administration Anxiety Sodium Chloride 1,000 mls @ 999 mls/hr 06/09/20 11:45 06/09/20 11:59 Normal Saline IV 999 mls/hr ASDIRECTED CAREY Administration Potassium Chloride 20 meq 06/09/20 17:20 Klor-Con M20 PO 06/09/20 17:21 ONETIME ONE Discontinued Medications Generic Name Dose Route Start Last Admin Trade Name [place] PRN Reason Stop Dose Admin Potassium Chloride 20 meq/ 112 mls @ 56 mls/hr 06/09/20 14:00 06/09/20 14:32 Lidocaine HCl 2 ml/ Sodium IV 06/09/20 15:59 56 mls/hr Chloride ONETIME ONE Administration Ondansetron HCl 4 mg 06/09/20 11:50 06/09/20 11:58 Zofran IVPUSH 06/09/20 11:51 4 mg ONETIME ONE Administration - Re-Assessments/Exams Free Text/Narrative Re-Assessment/Exam: 06/09/20 13:00 ccat scan of head is neg for acute finding He was found to have a k of 2.8. He did have a episode when he did not respond for a period of time. He did not have a change in vital signs. He did not have tonic clonic movement. 06/09/20 17:20 pt was seen by Dr Hadley who felt like some of his symptoms were anxiety. Departure - Departure Time of Disposition: 13:04 Disposition: Admitted As Inpatient 68 Condition: Fair Clinical Impression: Unresponsive episode, Hypokalemia, ETOH abuse - Discharge Information Referrals: Baljeet Lucio MD [Primary Care Provider] - Forms: ED Department Discharge Care Plan Goals: admit to Dr Hadley Sepsis Event Note (ED) - Focused Exam Vital Signs: Vital Signs Temp Pulse Resp BP Pulse Ox 06/09/20 15:39 60 146/94 H 97 06/09/20 14:26 54 L 144/91 H 96 06/09/20 12:40 49 L 150/79 H 95 06/09/20 12:03 45 L 173/86 H 06/09/20 11:43 37.8 C 54 L 16 144/92 H 97 06/09/20 11:26 37.8 C 54 L 16 144/92 H 97 - My Orders Last 24 Hours: My Active Orders 06/09/20 11:45 Sodium Chloride 0.9% [Normal Saline] 1,000 ml IV ASDIRECTED 06/09/20 12:06 Cardiac Monitoring [RC] .As Directed 06/09/20 12:55 Acetaminophen [Tylenol] 650 mg PO Q6H PRN 06/09/20 13:00 EKG Documentation Completion [RC] ASDIRECTED EKG 12 Lead [EK] Routine 06/09/20 17:20 Potassium Chloride [Klor-Con M20] 20 meq PO ONETIME ONE - Assessment/Plan Last 24 Hours: My Active Orders 06/09/20 11:45 Sodium Chloride 0.9% [Normal Saline] 1,000 ml IV ASDIRECTED 06/09/20 12:06 Cardiac Monitoring [RC] .As Directed 06/09/20 12:55 Acetaminophen [Tylenol] 650 mg PO Q6H PRN 06/09/20 13:00 EKG Documentation Completion [RC] ASDIRECTED EKG 12 Lead [EK] Routine 06/09/20 17:20 Potassium Chloride [Klor-Con M20] 20 meq PO ONETIME ONE
[2020-06-09] MEDS ORDERED: Sodium Chloride 0.9% 1,000 ML IV SCH (11:45)
[2020-06-09] MEDS ORDERED: Ondansetron 4 MG/2 ML SDV IVPUSH ONE (11:50)
[2020-06-09] MEDS ORDERED: Potassium Chloride 20 MEQ in Premix Bag 1 BAG IV ONE (12:17)
--- NOTE | 2020-06-09 12:26 | CT ---
Head wo Cont CLINICAL HISTORY: Not responding normally COMPARISON: April 02, 2020 TECHNIQUE: Transverse scans were obtained from the base of the skull through the vertex without IV contrast on a multislice, multidetector CT scanner. Auto dosage reduction and iterative reconstruction techniques employed. FINDINGS: No focal abnormal parenchymal density is identified. Patient has had previous right craniotomy for subdural hematoma. No significant extra-axial collection is identified on the current exam There is no mass effect, hemorrhage, or extraaxial collection. The basal cisterns and sulci over the convexities are normal for age. The ventricles are normal for age. IMPRESSION: Previous craniotomy. Previous subdural hematoma has resolved. No acute intracranial process
[2020-06-09] MEDS ORDERED: Acetaminophen Soln 650 MG/20.3 ML UD Cup PO PRN (12:55)
[2020-06-09] MEDS ORDERED: Potassium Chloride 20 MEQ, Lidocaine 1% 2 ML in Sodium Chloride 0.9% 100 ML IV ONE (14:00)
--- NOTE | 2020-06-09 17:00 | PCM.CONS ---
H&P History of Present Illness - General Date of Service: 06/09/20 Source of Information: Patient, Family, Old Records, Provider, RN Notes Reviewed History Limitations: Reports: No Limitations - History of Present Illness Initial Comments - Free Text/Narative: Mr. Luna is a 49-year-old gentleman who I was asked to see by Dr. Heredia in the emergency department for possible admission. He has had a longstanding difficulty with alcohol abuse and recurrent admissions for alcohol withdrawal. He did fall approximately 4 months ago and experienced a subdural hematoma. Following this he did have 2 seizures and was started on therapy with Keppra. Recently he had difficulty with possible seizure activity and was hospitalized at [facility]. He was placed on continuous EEG monitoring and did have at least one episode while monitored, showing no epileptic activity associated with possible seizure. He was felt to have a history of seizure disorder associated with his subdural hematoma and was continued on Keppra. He was also felt to have nonelliptic seizure activity noted during the hospitalization. He was hospitalized at this facility last week for alcohol withdrawal as well as acute pancreatitis. He was just discharged home 4 days ago. Last night began to have episodes of jaw tremor and shaking of his upper extremities, similar to what he had experienced while at [facility]. On entering the room I did witness a similar episode with some clenching of his jaw, mild tremor of the upper extremities, and a brief episode of unresponsiveness. Following this episode he had transient slurring and garbled speech that resolved relatively quickly. I discussed the recent findings at [facility] at length with the patient as well as his mother who was present. He was willing to explore further psychiatric evaluation and counseling. The plan was to proceed with observation admission to facilitate psychiatric involvement via telemedicine. Unfortunately I was notified during the visit that we had no available beds at our facility for possible admission. Have a longstanding history of severe anxiety and I believe that this is contributing to some of his ongoing alcohol use as well as stress associated with his nonepileptic seizure activity. Abdominal Pain Score (Numeric/FACES): 7 - Related Data Allergies/Adverse Reactions: Allergies Allergy/AdvReac Type Severity Reaction Status Date / Time Penicillins Allergy Hives Verified 06/09/20 11:27 erythromycin base AdvReac Nausea Verified 06/09/20 11:27 Home Medications: Home Meds traZODone HCl [Trazodone HCl] 50 mg PO BEDTIME 11/05/16 [History] FLUoxetine HCl [Prozac] 40 mg PO DAILY 01/07/20 [History] QUEtiapine [SEROquel] 25 mg PO BEDTIME 01/07/20 [History] levETIRAcetam [Keppra] 750 mg PO BID 04/13/20 [History] Metoprolol Succinate [Toprol XL] 12.5 mg PO DAILY 05/31/20 [History] Past Medical History HEENT History: Reports: Impaired Vision Cardiovascular History: Reports: Arrhythmia, CAD, Hypertension, [place], Other (See Below) Other Cardiovascular History: svt Respiratory History: Reports: Bronchitis, Recurrent Gastrointestinal History: Reports: Diverticulosis, Pancreatitis Genitourinary History: Reports: Prostate Disorder, Renal Calculus Musculoskeletal History: Reports: Fracture Other Musculoskeletal History: dislocated shoulder Neurological History: Reports: Brain Injury, Concussion Other Neuro History: subderal hematoma Psychiatric History: Reports: Addiction, Anxiety, Depression, Panic Attack, Psych Hospitalization(s), PTSD, Suicide Attempt Other Psychiatric History: Major depressive disorder. ETOH Endocrine/Metabolic History: Reports: Diabetes, Type II, Other (See Below) Other Endocrine/Metabolic History: type II diabetes history Hematologic History: Reports: B12 Deficiency, Folic Acid Immunologic History: Reports: Other (See Below) Other Immunologic History: anaplasmosis, lyme disease Dermatologic History: Reports: Eczema - Infectious Disease History Infectious Disease History: Reports: Chicken Pox - Past Surgical History GI Surgical History: Reports: Bariatric Procedure, Cholecystectomy, Colonoscopy Musculoskeletal Surgical History: Reports: Arthroscopic Knee Social & Family History - Tobacco Use Tobacco Use Status *Q: Former Tobacco User Used Tobacco, but Quit: Yes Month/Year Tobacco Last Used: 14 years - Caffeine Use Caffeine Use: Reports: Coffee - Recreational Drug Use Drug Use in Last 12 Months: No - Living Situation & Occupation Living situation: Reports: with Significant Other (reports is getting divorce from in [place], living with his son.) Occupation: Employed H&P Review of Systems - Review of Systems: Review Of Systems: See Below General: Reports: No Symptoms HEENT: Reports: No Symptoms Pulmonary: Reports: No Symptoms Cardiovascular: Reports: No Symptoms Gastrointestinal: Reports: No Symptoms Genitourinary: Reports: No Symptoms Musculoskeletal: Reports: No Symptoms Skin: Reports: No Symptoms Psychiatric: Reports: Depression, Anxiety, Cravings. Denies: Suicidal Ideation, Homicidal Ideation Neurological: Reports: Seizure, Change in Speech Hematologic/Lymphatic: Reports: No Symptoms Immunologic: Reports: No Symptoms Exam - Exam Exam: See Below - Vital Signs Vital Signs: Last Vital Signs Temp 100.0 F 06/09/20 11:43 Pulse 60 06/09/20 15:39 Resp 16 06/09/20 11:43 BP 146/94 H 06/09/20 15:39 Pulse Ox 97 06/09/20 15:39 Weight: 199 lb 1.239 oz - Exam General: Alert, Oriented, Cooperative, Mild Distress Neck: Supple, Trachea Midline Lungs: Clear to Auscultation, Normal Respiratory Effort Cardiovascular: Regular Rate, Regular Rhythm, Normal S1, Normal S2 GI/Abdominal Exam: Soft, Non-Tender, No Organomegaly, No Distention Back Exam: Normal Inspection, Full Range of Motion Extremities: Non-Tender, No Pedal Edema Skin: Warm, Dry Neurological: Cranial Nerves Intact, Strength Equal Bilateral, Normal Speech, Normal Tone, Sensation Intact. No: Focal Deficit Neuro Extensive - Mental Status: Alert, Oriented x3, Normal Mood/Affect, Normal Cognition, Memory Intact - Patient Data Lab Results Last 24 hrs: Laboratory Results - last 24 hr 06/09/20 06/09/20 06/09/20 Range/Units 11:50 11:50 11:50 WBC 9.6 (4.5-11.0) K/uL RBC 4.55 (4.30-5.90) M/uL Hgb 13.5 (12.0-15.0) g/dL Hct 39.4 L (40.0-54.0) % MCV 87 (80-98) fL MCH 30 (27-31) pg MCHC 34 (32-36) % Plt Count 312 (150-400) K/uL Neut % (Auto) 73 H (36-66) % Lymph % (Auto) 13 L (24-44) % [place] % (Auto) 12 H (2-6) % Eos % (Auto) 1 L (2-4) % Baso % (Auto) 1 (0-1) % Sodium 137 L (140-148) mmol/L Potassium 2.8 L* (3.6-5.2) mmol/L Chloride 103 (100-108) mmol/L Carbon Dioxide 24 (21-32) mmol/L Anion Gap 12.8 (5.0-14.0) mmol/L BUN 3 L (7-18) mg/dL Creatinine 0.8 (0.8-1.3) mg/dL Est Cr Clr Drug Dosing 103.01 mL/min Estimated GFR (MDRD) > 60 (>60) Glucose 135 H (74-106) mg/dL Calcium 8.6 (8.5-10.1) mg/dL Total Bilirubin 0.6 (0.2-1.0) mg/dL AST 19 (15-37) U/L ALT 35 (12-78) U/L Alkaline Phosphatase 158 H (46-116) U/L Total Protein 5.8 L (6.4-8.2) g/dL Albumin 3.0 L (3.4-5.0) g/dL Globulin 2.8 (2.3-3.5) g/dL Albumin/Globulin Ratio 1.1 L (1.2-2.2) Amylase 68 (25-115) U/L Lipase 223 (73-393) U/L Urine Color (YELLOW) Urine Appearance (CLEAR) Urine pH (5.0-8.0) Ur Specific [place] (1.008-1.030) Urine Protein (NEGATIVE) mg/dL Urine Glucose (UA) (NEGATIVE) mg/dL Urine Ketones (NEGATIVE) mg/dL Urine Occult Blood (NEGATIVE) Urine Nitrite (NEGATIVE) Urine Bilirubin (NEGATIVE) Urine Urobilinogen (0.2-1.0) EU/dL Ur Leukocyte Esterase (NEGATIVE) Urine RBC (0-5) Urine WBC (0-5) Ur Epithelial Cells Amorphous Sediment Urine Bacteria Urine Mucus Ethyl Alcohol mg/dL 06/09/20 06/09/20 Range/Units 11:50 12:34 WBC (4.5-11.0) K/uL RBC (4.30-5.90) M/uL Hgb (12.0-15.0) g/dL Hct (40.0-54.0) % MCV (80-98) fL MCH (27-31) pg MCHC (32-36) % Plt Count (150-400) K/uL Neut % (Auto) (36-66) % Lymph % (Auto) (24-44) % [place] % (Auto) (2-6) % Eos % (Auto) (2-4) % Baso % (Auto) (0-1) % Sodium (140-148) mmol/L Potassium (3.6-5.2) mmol/L Chloride (100-108) mmol/L Carbon Dioxide (21-32) mmol/L Anion Gap (5.0-14.0) mmol/L BUN (7-18) mg/dL Creatinine (0.8-1.3) mg/dL Est Cr Clr Drug Dosing mL/min Estimated GFR (MDRD) (>60) Glucose (74-106) mg/dL Calcium (8.5-10.1) mg/dL Total Bilirubin (0.2-1.0) mg/dL AST (15-37) U/L ALT (12-78) U/L Alkaline Phosphatase (46-116) U/L Total Protein (6.4-8.2) g/dL Albumin (3.4-5.0) g/dL Globulin (2.3-3.5) g/dL Albumin/Globulin Ratio (1.2-2.2) Amylase (25-115) U/L Lipase (73-393) U/L Urine Color Yellow (YELLOW) Urine Appearance Clear (CLEAR) Urine pH 7.5 (5.0-8.0) Ur Specific [place] 1.015 (1.008-1.030) Urine Protein Negative (NEGATIVE) mg/dL Urine Glucose (UA) Negative (NEGATIVE) mg/dL Urine Ketones Negative (NEGATIVE) mg/dL Urine Occult Blood Negative (NEGATIVE) Urine Nitrite Negative (NEGATIVE) Urine Bilirubin Negative (NEGATIVE) Urine Urobilinogen 0.2 (0.2-1.0) EU/dL Ur Leukocyte Esterase Negative (NEGATIVE) Urine RBC Not seen (0-5) Urine WBC Not seen (0-5) Ur Epithelial Cells Not seen Amorphous Sediment Not seen Urine Bacteria Not seen Urine Mucus Not seen Ethyl Alcohol < 3 mg/dL Result Diagrams: 06/09/20 11:50 06/09/20 11:50 Sepsis Event Note - Evaluation Sepsis Screening Result: No Definite Risk - Focused Exam Vital Signs: Vital Signs Temp Pulse Resp BP Pulse Ox 06/09/20 15:39 60 146/94 H 97 06/09/20 14:26 54 L 144/91 H 96 06/09/20 12:40 49 L 150/79 H 95 06/09/20 12:03 45 L 173/86 H 06/09/20 11:43 100.0 F 54 L 16 144/92 H 97 06/09/20 11:26 100.0 F 54 L 16 144/92 H 97 Consult PN Assessment/Plan Procedures: Procedures ASSAY OF AMYLASE (01/29/16) ASSAY OF CK (CPK) (01/07/20) ASSAY OF LACTIC ACID (01/27/20) ASSAY OF LIPASE (01/31/20) ASSAY OF MAGNESIUM (01/29/16) ASSAY OF TROPONIN QUANT (01/31/20) CHEST X-RAY 1 VIEW FRONTAL (01/29/16) CHEST X-RAY 2VW FRONTAL&LATL (03/29/14) COMPLETE CBC AUTOMATED (03/23/20) COMPLETE CBC W/AUTO DIFF WBC (04/13/20) COMPREHEN METABOLIC PANEL (04/13/20) CT ABD & PELV W/CONTRAST (03/29/14) CT HEAD/BRAIN W/O DYE (04/13/20) CT MAXILLOFACIAL W/O DYE (01/31/20) CT NECK SPINE W/O DYE (03/23/20) DRUG TEST PRSMV CHEM ANLYZR (04/13/20) DRUG TEST PRSMV DIR OPT OBS (02/10/20) ELECTROCARDIOGRAM REPORT (01/26/20) ELECTROCARDIOGRAM TRACING (04/13/20) EMERGENCY DEPT VISIT (04/13/20) EMERGENCY DEPT VISIT (03/23/20) EMERGENCY DEPT VISIT (03/01/20) EMERGENCY DEPT VISIT (02/10/20) EMERGENCY DEPT VISIT (01/27/20) EMERGENCY DEPT VISIT (01/27/20) EMERGENCY DEPT VISIT (01/14/20) EMERGENCY DEPT VISIT (01/07/20) EMERGENCY DEPT VISIT (06/22/14) EMERGENCY DEPT VISIT (03/29/14) HOT OR COLD PACKS THERAPY (07/08/14) HYDRATE IV INFUSION ADD-ON (04/13/20) HYDRATION IV INFUSION INIT (03/01/20) LIPID PANEL (01/29/16) METABOLIC PANEL TOTAL CA (01/07/20) MRI JNT OF LWR EXTRE W/O DYE (05/10/17) PROTHROMBIN TIME (03/23/20) PT EVALUATION (07/08/14) ROUTINE VENIPUNCTURE (04/13/20) THER/PROPH/DIAG INJ IV PUSH (04/13/20) THER/PROPH/DIAG IV INF ADDON (03/07/20) THER/PROPH/DIAG IV INF INIT (03/07/20) THERAPEUTIC EXERCISES (09/04/14) THROMBOPLASTIN TIME PARTIAL (01/29/16) TX/PRO/DX INJ NEW DRUG ADDON (03/23/20) TX/PRO/DX INJ SAME DRUG BOTTLE HOP (03/23/20) URINALYSIS AUTO W/SCOPE (02/10/20) X-RAY EXAM CHEST 1 VIEW (01/31/20) X-RAY EXAM OF SHOULDER (06/22/14) X-RAY EXAM OF TOE(S) (01/14/20) X-RAY EYE FOR FOREIGN BODY (05/10/17) Problem List Initiated/Reviewed/Updated: Yes Plan: ASSESSMENT AND RECOMMENDATIONS Requesting Provider: MUNIR Date Consult Requested: 06/09/20 Reason for Consult: Spells, possible seizure activity Patient History Reviewed: Yes Notified Requestor: Yes
--- NOTE | 2020-06-09 17:13 | PCM.HP.2 ---
H&P History of Present Illness - General Date of Service: 06/09/20 Source of Information: Patient, Family, Old Records, Provider, RN Notes Reviewed History Limitations: Reports: No Limitations - History of Present Illness Initial Comments - Free Text/Narative: Mr. Luna is a 49-year-old gentleman who I was asked to see by Dr. Heredia in the emergency department for possible admission. He has had a longstanding difficulty with alcohol abuse and recurrent admissions for alcohol withdrawal. He did fall approximately 4 months ago and experienced a subdural hematoma. Following this he did have 2 seizures and was started on therapy with Keppra. Recently he had difficulty with possible seizure activity and was hospitalized at [facility]. He was placed on continuous EEG monitoring and did have at least one episode while monitored, this showed no epileptic activity associated with possible seizure. He was felt to have a history of seizure disorder associated with his subdural hematoma and was continued on Keppra. He was also felt to have nonelliptic seizure activity noted during the hospitalization. He was hospitalized at this facility last week for alcohol withdrawal as well as acute pancreatitis. He was just discharged home 4 days ago. Last night began to have episodes of jaw tremor and shaking of his upper extremities, similar to what he had experienced while at [place]. On entering the room I did witness a similar episode with some clenching of his jaw, mild tremor of the upper extremities, and a brief episode of unresponsiveness. Following this episode he had transient slurring and garbled speech that resolved relatively quickly. I discussed the recent findings at [place] at [facility] with the patient as well as his mother who was present. He is willing to explore further psychiatric evaluation and counseling. The plan was to proceed with observation admission to facilitate psychiatric involvement via telemedicine. Abdominal Pain Score (Numeric/FACES): 7 - Related Data Allergies/Adverse Reactions: Allergies Allergy/AdvReac Type Severity Reaction Status Date / Time Penicillins Allergy Hives Verified 06/09/20 11: erythromycin base AdvReac Nausea Verified 06/09/20 11:27 Home Medications: Home Meds traZODone HCl [Trazodone HCl] 50 mg PO BEDTIME 11/05/16 [History] FLUoxetine HCl [Prozac] 40 mg PO DAILY 01/07/20 [History] QUEtiapine [SEROquel] 25 mg PO BEDTIME 01/07/20 [History] levETIRAcetam [Keppra] 750 mg PO BID 04/13/20 [History] Metoprolol Succinate [Toprol XL] 12.5 mg PO DAILY 05/31/20 [History] Past Medical History HEENT History: Reports: Impaired Vision Cardiovascular History: Reports: Arrhythmia, CAD, Hypertension, MS, Other (See Below) Other Cardiovascular History: svt Respiratory History: Reports: Bronchitis, Recurrent Gastrointestinal History: Reports: Diverticulosis, Pancreatitis Genitourinary History: Reports: Prostate Disorder, Renal Calculus Musculoskeletal History: Reports: Fracture Other Musculoskeletal History: dislocated shoulder Neurological History: Reports: Brain Injury, Concussion Other Neuro History: subderal hematoma Psychiatric History: Reports: Addiction, Anxiety, Depression, Panic Attack, Psych Hospitalization(s), PTSD, Suicide Attempt Other Psychiatric History: Major depressive disorder. ETOH Endocrine/Metabolic History: Reports: Diabetes, Type II, Other (See Below) Other Endocrine/Metabolic History: type II diabetes history Hematologic History: Reports: B12 Deficiency, Folic Acid Immunologic History: Reports: Other (See Below) Other Immunologic History: anaplasmosis, lyme disease Dermatologic History: Reports: Eczema - Infectious Disease History Infectious Disease History: Reports: Chicken Pox - Past Surgical History GI Surgical History: Reports: Bariatric Procedure, Cholecystectomy, Colonoscopy Musculoskeletal Surgical History: Reports: Arthroscopic Knee Social & Family History - Tobacco Use Tobacco Use Status *Q: Former Tobacco User Used Tobacco, but Quit: Yes Month/Year Tobacco Last Used: 14 years - Caffeine Use Caffeine Use: Reports: Coffee - Recreational Drug Use Drug Use in Last 12 Months: No - Living Situation & Occupation Living situation: Reports: with Significant Other (reports is getting divorce from in [place], living with his son.) Occupation: Employed H&P Review of Systems - Review of Systems: Review Of Systems: See Below General: Reports: No Symptoms HEENT: Reports: No Symptoms Pulmonary: Reports: No Symptoms Cardiovascular: Reports: No Symptoms Gastrointestinal: Reports: No Symptoms Genitourinary: Reports: No Symptoms Musculoskeletal: Reports: No Symptoms Skin: Reports: No Symptoms Psychiatric: Reports: Depression, Anxiety, Cravings Neurological: Reports: Other (None elliptic seizure activity) Hematologic/Lymphatic: Reports: No Symptoms Immunologic: Reports: No Symptoms Exam - Exam Exam: See Below - Vital Signs Vital Signs: Last Vital Signs Temp 100.0 F 06/09/20 11:43 Pulse 60 06/09/20 15:39 Resp 16 06/09/20 11:43 BP 146/94 H 06/09/20 15:39 Pulse Ox 97 06/09/20 15:39 Weight: 199 lb 1.239 oz - Exam Quality Assessment: DVT Prophylaxis General: Alert, Oriented, Cooperative, Mild Distress HEENT: Conjunctiva Clear, Hearing Intact, Mucosa Moist & [place], Normal Nasal Septum, Posterior Pharynx Clear, Pupils Equal Neck: Supple, Trachea Midline, +2 Carotid Pulse wo Bruit Lungs: Clear to Auscultation, Normal Respiratory Effort Cardiovascular: Regular Rate, Regular Rhythm, Normal S1, Normal S2. No: Systolic Murmur, Diastolic Murmur GI/Abdominal Exam: Soft, Non-Tender, No Organomegaly, No Distention Back Exam: Normal Inspection, Full Range of Motion Extremities: Non-Tender, No Pedal Edema Skin: Warm, Dry Neurological: Cranial Nerves Intact, Strength Equal Bilateral, Normal Speech, Normal Tone, Sensation Intact. No: Focal Deficit Neuro Extensive - Mental Status: Alert, Oriented x3, Normal Mood/Affect, Normal Cognition, Memory Intact - Patient Data Lab Results Last 24 hrs: Laboratory Results - last 24 hr 06/09/20 06/09/20 06/09/20 Range/Units 11:50 11:50 11:50 WBC 9.6 (4.5-11.0) K/uL RBC 4.55 (4.30-5.90) M/uL Hgb 13.5 (12.0-15.0) g/dL Hct 39.4 L (40.0-54.0) % MCV 87 (80-98) fL MCH 30 (27-31) pg MCHC 34 (32-36) % Plt Count 312 (150-400) K/uL Neut % (Auto) 73 H (36-66) % Lymph % (Auto) 13 L (24-44) % [place] % (Auto) 12 H (2-6) % Eos % (Auto) 1 L (2-4) % Baso % (Auto) 1 (0-1) % Sodium 137 L (140-148) mmol/L Potassium 2.8 L* (3.6-5.2) mmol/L Chloride 103 (100-108) mmol/L Carbon Dioxide 24 (21-32) mmol/L Anion Gap 12.8 (5.0-14.0) mmol/L BUN 3 L (7-18) mg/dL Creatinine 0.8 (0.8-1.3) mg/dL Est Cr Clr Drug Dosing 103.01 mL/min Estimated GFR (MDRD) > 60 (>60) Glucose 135 H (74-106) mg/dL Calcium 8.6 (8.5-10.1) mg/dL Total Bilirubin 0.6 (0.2-1.0) mg/dL AST 19 (15-37) U/L ALT 35 (12-78) U/L Alkaline Phosphatase 158 H (46-116) U/L Total Protein 5.8 L (6.4-8.2) g/dL Albumin 3.0 L (3.4-5.0) g/dL Globulin 2.8 (2.3-3.5) g/dL Albumin/Globulin Ratio 1.1 L (1.2-2.2) Amylase 68 (25-115) U/L Lipase 223 (73-393) U/L Urine Color (YELLOW) Urine Appearance (CLEAR) Urine pH (5.0-8.0) Ur Specific [place] (1.008-1.030) Urine Protein (NEGATIVE) mg/dL Urine Glucose (UA) (NEGATIVE) mg/dL Urine Ketones (NEGATIVE) mg/dL Urine Occult Blood (NEGATIVE) Urine Nitrite (NEGATIVE) Urine Bilirubin (NEGATIVE) Urine Urobilinogen (0.2-1.0) EU/dL Ur Leukocyte Esterase (NEGATIVE) Urine RBC (0-5) Urine WBC (0-5) Ur Epithelial Cells Amorphous Sediment Urine Bacteria Urine Mucus Ethyl Alcohol mg/dL 06/09/20 06/09/20 Range/Units 11:50 12:34 WBC (4.5-11.0) K/uL RBC (4.30-5.90) M/uL Hgb (12.0-15.0) g/dL Hct (40.0-54.0) % MCV (80-98) fL MCH (27-31) pg MCHC (32-36) % Plt Count (150-400) K/uL Neut % (Auto) (36-66) % Lymph % (Auto) (24-44) % [place] % (Auto) (2-6) % Eos % (Auto) (2-4) % Baso % (Auto) (0-1) % Sodium (140-148) mmol/L Potassium (3.6-5.2) mmol/L Chloride (100-108) mmol/L Carbon Dioxide (21-32) mmol/L Anion Gap (5.0-14.0) mmol/L BUN (7-18) mg/dL Creatinine (0.8-1.3) mg/dL Est Cr Clr Drug Dosing mL/min Estimated GFR (MDRD) (>60) Glucose (74-106) mg/dL Calcium (8.5-10.1) mg/dL Total Bilirubin (0.2-1.0) mg/dL AST (15-37) U/L ALT (12-78) U/L Alkaline Phosphatase (46-116) U/L Total Protein (6.4-8.2) g/dL Albumin (3.4-5.0) g/dL Globulin (2.3-3.5) g/dL Albumin/Globulin Ratio (1.2-2.2) Amylase (25-115) U/L Lipase (73-393) U/L Urine Color Yellow (YELLOW) Urine Appearance Clear (CLEAR) Urine pH 7.5 (5.0-8.0) Ur Specific [place] 1.015 (1.008-1.030) Urine Protein Negative (NEGATIVE) mg/dL Urine Glucose (UA) Negative (NEGATIVE) mg/dL Urine Ketones Negative (NEGATIVE) mg/dL Urine Occult Blood Negative (NEGATIVE) Urine Nitrite Negative (NEGATIVE) Urine Bilirubin Negative (NEGATIVE) Urine Urobilinogen 0.2 (0.2-1.0) EU/dL Ur Leukocyte Esterase Negative (NEGATIVE) Urine RBC Not seen (0-5) Urine WBC Not seen (0-5) Ur Epithelial Cells Not seen Amorphous Sediment Not seen Urine Bacteria Not seen Urine Mucus Not seen Ethyl Alcohol < 3 mg/dL Result Diagrams: 06/09/20 11:50 06/09/20 11:50 Sepsis Event Note - Evaluation Sepsis Screening Result: No Definite Risk - Focused Exam Vital Signs: Vital Signs Temp Pulse Resp BP Pulse Ox 06/09/20 15:39 60 146/94 H 97 06/09/20 14:26 54 L 144/91 H 96 06/09/20 12:40 49 L 150/79 H 95 06/09/20 12:03 45 L 173/86 H 06/09/20 11:43 100.0 F 54 L 16 144/92 H 97 06/09/20 11:26 100.0 F 54 L 16 144/92 H 97 *Q Meaningful Use (ADM) - VTE Risk Assess *Q Each Risk Factor Represents 1 Point: Age 41 - 59 years, Obesity ( BMI > 25 kg/m2) Total Score 1 Point Risk Factors: 2 Each Risk Factor Represents 2 Points: None Total Score 2 Point Risk Factors: 0 Each Risk Factor Represents 3 Points: None Total Score 3 Point Risk Factors: 0 Each Risk Factor Represents 5 Points: None Total Score 5 Point Risk Factors: 0 Venous Thromboembolism Risk Factor Score *Q: 2 Problem List Initiated/Reviewed/Updated: Yes Orders Last 24hrs: Active Orders 24 hr Category Date Time Status Cardiac Monitoring [RC] .As Directed Care 06/09/20 12:06 Active EKG Documentation Completion [RC] ASDIRECTED Care 06/09/20 13:00 Active Acetaminophen [Tylenol] Med 06/09/20 12:55 Active 650 mg PO Q6H PRN Sodium Chloride 0.9% [Normal Saline] 1,000 ml Med 06/09/20 11:45 Active IV ASDIRECTED EKG 12 Lead [EK] Routine Ther 06/09/20 13:00 Ordered Medication Orders Acetaminophen (Tylenol) 650 mg PO Q6H PRN PRN Reason: Anxiety Last Admin: 06/09/20 14:31 Dose: 650 mg Documented by: PREILOR Sodium Chloride (Normal Saline) 1,000 mls @ 999 mls/hr IV ASDIRECTED CAREY Last Admin: 06/09/20 11:59 Dose: 999 mls/hr Documented by: PREILOR Assessment/Plan Comment:: ASSESSMENT AND PLAN NONEPILEPTIC SEIZURE ACTIVITY-recent hospitalization [place] with continuous EEG monitoring, showed no elective form activity associated with his spells. ANXIETY-severe ongoing problem with underlying posttraumatic stress disorder. Likely a significant factor in his ongoing alcohol abuse. He is on 3 different medications at the present time including trazodone, Seroquel, and Prozac. -Telemedicine psychiatry consult for recommendations concerning medication management -Lorazepam 0.5 mg p.o. every 4 hours as needed, pending psychiatry consult RECENT EPISODE OF PANCREATITIS-no evidence of active pancreatitis CHRONIC ALCOHOL ABUSE-he reports no significant alcohol use over the past 11 days -Monitor for alcohol withdrawal MAINTENANCE ISSUES -DVT prophylaxis; scuds -GI prophylaxis; Protonix 40 mg p.o. daily -[place] catheter; not indicated -Nutrition; regular diet -Nicotine dependence; not required CODE STATUS-FULL CODE ADMISSION STATUS-this patient will be admitted to observation status, expect no more than a one night hospital stay for evaluation and management of problems as outlined above. DISPOSITION-anticipate discharge to home after the hospital stay. PRIMARY CARE PROVIDER-Dr. Lucio - Mortality Measure Prognosis:: Good
[2020-06-09] MEDS ORDERED: Potassium Chloride 20 MEQ Tab.ER PO ONE ×2 (17:20→19:41)
[2020-06-09] MEDS ORDERED: Potassium Chloride 20 MEQ Tab.ER ONE (17:38)
[2020-06-09] MEDS ORDERED: Sodium Chloride 0.9% 10 ML Syringe FLUSH PRN (19:41)
[2020-06-09] MEDS ORDERED: LORazepam 0.5 MG Tab PO PRN (19:41)
[2020-06-09] MEDS: Ondansetron 4 MG/2 ML SDV IV PRN (19:58)
[2020-06-09] MEDS: Pantoprazole 40 MG Tab.CR PO SCH (20:12)
[2020-06-09] MEDS ORDERED: QUEtiapine 25 MG Tab PO SCH (21:00)
[2020-06-09] MEDS ORDERED: traZODone 50 MG Tab PO SCH (21:00)
[2020-06-09] MEDS: Acetaminophen 325 MG Tab PO PRN (21:41)
[2020-06-09] MEDS: levETIRAcetam 250 MG Tab PO SCH (21:41)
[2020-06-10] MEDS: Acetaminophen 325 MG Tab PO PRN ×2 (08:51→15:49)
[2020-06-10] MEDS ORDERED: FLUoxetine 20 MG Cap PO SCH (09:00)
[2020-06-10] MEDS: levETIRAcetam 250 MG Tab PO SCH ×2 (09:15→20:08)
[2020-06-10] MEDS: Metoprolol Succinate 25 MG Tab.ER PO SCH (09:15)
[2020-06-10] MEDS: Pantoprazole 40 MG Tab.CR PO SCH (09:15)
--- NOTE | 2020-06-10 17:08 | PCM.PN ---
- General Info Date of Service: 06/10/20 Subjective Update: Mr. Luna has continued to have seizure-like spells, not as frequent as he had been experiencing at home. He otherwise has remained stable since admission. He was seen and evaluated by Dr. Tai this afternoon for psychiatric consult. Dr. Tai has recommended several medication changes which will be instituted now. Functional Status: Reports: Tolerating Diet, Ambulating, Urinating - Review of Systems General: Reports: Weakness, Fatigue. Denies: Fever, Chills Pulmonary: Reports: No Symptoms Cardiovascular: Reports: No Symptoms Gastrointestinal: Reports: No Symptoms - Patient Data Vitals - Most Recent: Last Vital Signs Temp 97.6 F 06/10/20 16:00 Pulse 72 06/10/20 09:15 Resp 13 06/10/20 16:00 BP 173/118 H 06/10/20 16:00 Pulse Ox 98 06/10/20 16:00 Weight - Most Recent: 199 lb 1.239 oz I&O - Last 24 Hours: Intake & Output 06/10/20 06/10/20 06/10/20 06:59 14:59 22:59 Intake Total 1450 Output Total 550 250 Balance 900 -250 Lab Results Last 24 Hours: Laboratory Results - last 24 hr 06/10/20 Range/Units 05:09 Potassium 4.1 (3.6-5.2) mmol/L Med Orders - Current: Current Medications Acetaminophen (Tylenol) 650 mg PO Q4H PRN PRN Reason: Pain (Mild 1-3)/fever Last Admin: 06/10/20 15:49 Dose: 650 mg Documented by: Fluvoxamine Maleate (Luvox) 100 mg PO BEDTIME [facility] Levetiracetam (Keppra) 750 mg PO BID [facility] Last Admin: 06/10/20 09:15 Dose: 750 mg Documented by: Lorazepam (Ativan) 0.5 mg PO Q4H PRN PRN Reason: Anxiety Last Admin: 06/09/20 20:12 Dose: 0.5 mg Documented by: Metoprolol Succinate (Toprol Xl) 12.5 mg PO DAILY [facility] Last Admin: 06/10/20 09:15 Dose: 12.5 mg Documented by: Ondansetron HCl (Zofran) 4 mg IV Q4H PRN PRN Reason: Nausea/Vomiting Last Admin: 06/09/20 19:58 Dose: 4 mg Documented by: Pantoprazole Sodium (Protonix) 40 mg PO ACBREAKFAST [facility] Last Admin: 06/10/20 09:15 Dose: 40 mg Documented by: Potassium Chloride (Klor-Con M20) 20 meq PO BID [facility] Quetiapine Fumarate (Seroquel) 150 mg PO BEDTIME [facility] Sodium Chloride (Saline Flush) 10 ml FLUSH ASDIRECTED PRN PRN Reason: Keep Vein Open Topiramate (Topamax) 50 mg PO BID [facility] Discontinued Medications Acetaminophen (Tylenol) 650 mg PO Q6H PRN PRN Reason: Anxiety Last Admin: 06/09/20 14:31 Dose: 650 mg Documented by: Fluoxetine HCl (Prozac) 40 mg PO DAILY [facility] Last Admin: 06/10/20 09:15 Dose: 40 mg Documented by: Sodium Chloride (Normal Saline) 1,000 mls @ 999 mls/hr IV ASDIRECTED CAREY Last Admin: 06/09/20 11:59 Dose: 999 mls/hr Documented by: Potassium Chloride 20 meq/Lidocaine HCl 2 ml/ Sodium Chloride 112 mls @ 56 mls/hr IV ONETIME ONE Stop: 06/09/20 15:59 Last Admin: 06/09/20 14:32 Dose: 56 mls/hr Documented by: Ondansetron HCl (Zofran) 4 mg IVPUSH ONETIME ONE Stop: 06/09/20 11:51 Last Admin: 06/09/20 11:58 Dose: 4 mg Documented by: Potassium Chloride (Klor-Con M20) 20 meq PO ONETIME ONE Stop: 06/09/20 17:21 Last Admin: 06/09/20 17:25 Dose: 20 meq Documented by: Potassium Chloride (Klor-Con M20) Confirm Administered Dose 20 meq .ROUTE .STK- MED ONE Stop: 06/09/20 17:39 Last Admin: 06/09/20 20:12 Dose: Not Given Documented by: Potassium Chloride (Klor-Con M20) 40 meq PO ONETIME ONE Stop: 06/09/20 19:42 Last Admin: 06/09/20 20:12 Dose: 40 meq Documented by: Quetiapine Fumarate (Seroquel) 25 mg PO BEDTIME [facility] Last Admin: 06/09/20 21:41 Dose: 25 mg Documented by: Trazodone HCl (Trazodone) 50 mg PO BEDTIME [facility] Last Admin: 06/09/20 21:41 Dose: 50 mg Documented by: - Exam General: Alert, Oriented, Cooperative, Mild Distress Lungs: Clear to Auscultation, Normal Respiratory Effort Cardiovascular: Regular Rate, Regular Rhythm, No Murmurs GI/Abdominal Exam: Soft, Non-Tender, No Organomegaly, No Distention Extremities: Non-Tender, No Pedal Edema Sepsis Event Note - Evaluation Sepsis Screening Result: No Definite Risk - Focused Exam Vital Signs: Vital Signs Temp Pulse Resp BP BP Pulse Ox 06/10/20 16:00 97.6 F 13 173/118 H 98 06/10/20 14:00 13 165/108 H 95 06/10/20 12:00 14 136/87 97 06/10/20 10:00 15 128/88 96 06/10/20 09:15 72 129/84 06/10/20 08:00 97 F 20 129/84 97 06/10/20 06:00 18 123/87 93 L - Problem List Review Problem List Initiated/Reviewed/Updated: Yes - My Orders Last 24 Hours: My Active Orders 06/09/20 Dinner Regular Diet [DIET] 06/09/20 17:17 Resuscitation Status Routine 06/09/20 19:41 Acetaminophen [TylenoL] 650 mg PO Q4H PRN LORazepam [Ativan] 0.5 mg PO Q4H PRN Ondansetron [Zofran] 4 mg IV Q4H PRN Pantoprazole [ProTONIX] 40 mg PO ACBREAKFAST Sodium Chloride 0.9% [Saline Flush] 10 ml FLUSH ASDIRECTED PRN 06/09/20 19:41 Patient Status [ADT] Routine Ambulate [RC] QID Cardiac Monitoring [RC] Q6H Height and Weight [RC] DAILY Intake and Output [RC] QSHIFT Notify Provider Consults [RC] ASDIRECTED Notify Provider Vital Signs [RC] ASDIRECTED Oxygen Therapy [RC] PRN Up With Assistance [RC] ASDIRECTED Up to Chair [RC] QID VTE/DVT Education [RC] Per Unit Routine Vital Signs [RC] Q2H Consult to Physician [CONS] Routine Saline Lock Insert [OM.PC] Routine Sequential Compression Device [OM.PC] Per Unit Routine 06/09/20 21:00 levETIRAcetam [Keppra] 750 mg PO BID 06/10/20 09:00 Metoprolol Succinate [Toprol XL] 12.5 mg PO DAILY 06/10/20 21:00 Potassium Chloride [Klor-Con M20] 20 meq PO BID QUEtiapine [SEROqueL] 150 mg PO BEDTIME Topiramate [Topamax] 50 mg PO BID fluvoxaMINE [Luvox] 100 mg PO BEDTIME - Plan Plan:: ASSESSMENT AND PLAN NONEPILEPTIC SEIZURE ACTIVITY-recent hospitalization [facility] with continuous EEG monitoring, showed no epileptic activity associated with his spells. ANXIETY-severe ongoing problem with underlying posttraumatic stress disorder. Likely a significant factor in his ongoing alcohol abuse. Seen and evaluated today by Dr. Tai, who is recommended several medication changes. -Discontinue Prozac and trazodone -Increase Seroquel to 150 mg p.o. nightly -Topamax 50 mg p.o. twice daily, plan to increase dose slowly over the next few weeks to 100 mg p.o. twice daily -Luvox 100 mg p.o. nightly -Lorazepam 0.5 mg p.o. every 4 hours as needed while hospitalized RECENT EPISODE OF PANCREATITIS-no evidence of active pancreatitis CHRONIC ALCOHOL ABUSE-he reports no significant alcohol use over the past 11 days -Monitor for alcohol withdrawal MAINTENANCE ISSUES -DVT prophylaxis; scuds -GI prophylaxis; Protonix 40 mg p.o. daily -[place] catheter; not indicated -Nutrition; regular diet -Nicotine dependence; not required CODE STATUS-FULL CODE ADMISSION STATUS-this patient will be admitted to observation status, expect no more than a one night hospital stay for evaluation and management of problems as outlined above. DISPOSITION-anticipate discharge to home after the hospital stay. PRIMARY CARE PROVIDER-Dr. Lucio
[2020-06-10] MEDS: Ibuprofen 400 MG Tab PO PRN (18:13)
[2020-06-10] MEDS: Potassium Chloride 20 MEQ Tab.ER PO SCH (20:08)
[2020-06-10] MEDS: Topiramate 25 MG Tab PO SCH (20:08)
[2020-06-10] MEDS: Ondansetron 4 MG/2 ML SDV IV PRN (20:22)
[2020-06-10] MEDS ORDERED: QUEtiapine 25 MG Tab PO SCH (21:00)
[2020-06-10] MEDS ORDERED: fluvoxaMINE 100 MG Tab PO SCH (21:00)
[2020-06-10] MEDS ORDERED: QUEtiapine 100 MG, QUEtiapine 50 MG PO SCH ×2 (21:00)
--- NOTE | 2020-06-11 02:17 | CONS ---
DATE OF SERVICE: 06/10/2020 REFERRING PHYSICIAN: CONSULTING PHYSICIAN: Baljeet Tai MD Site where the services are provided is [facility] in [place], [place]. Site where the services are provided from our office is in [facility]. Length of service for this 60-minute inpatient telemedicine event is 60 minutes. IDENTIFICATION: The patient is a 49-year-old male who is admitted to the inpatient MICU at [facility] in [place], [place]. He is seen for psychiatric consultation per the request of staff attending, Dr. Hadley and his treatment team. The patient is seen in the presence of his mother, Mimi, who also participated in the interview today. CHIEF COMPLAINT: "I had a subdural hematoma in February and I have ended up having surgery and some seizures with it." HISTORY OF PRESENT ILLNESS: The patient is a 49-year-old male who reports that "for the past 3 days, I freeze, several of my muscles twitch" as the reason he is coming in. He states that he thought he was having seizures again, which he was having after he had the subdural hematoma back in February, but he is also noting "they say it is stress related." He does acknowledge that "I have a ton of anxiety" and he also acknowledges "I have a bunch of stress" and relates that he just recently got at the beginning of this summer, moved back up to [place] from [place], [place]. He states it was a hard divorce and he states complicating his clinical picture is the fact that he has been drinking pretty heavy, admits that was one of the reasons for the divorce. He states he drinks up to a liter a day. He had been sober for about 6 months and going to , but then, he states that the [facility] coronaviral pandemic got started. "They stopped having the meetings" and then he relapsed. He states that he struggles with anxiety, depression, and racing thoughts and ruminations as well flashbacks and nightmares, and he does state that there are "a lot of intrusive thoughts" and reports lot of racing thoughts and ruminations to the point of distraction. He states that he does not sleep too well and he tends to "act out" at night because he has the nightmares so bad. He is increasingly isolated. He also states complicating his clinical picture is that he has increased checking behaviors where he has to check things a lot and his mom attached to this fact and states that it tends to run in the family noting "I have it too." The patient does feel it is problematic and impedes his productivity. He denies any suicidal or homicidal. He denies any psychotic, delusional, or paranoid symptoms. He is currently on a regimen of Keppra, trazodone, Seroquel, and Prozac, and he states he thinks he is taking prazosin too, but he is not sure for the nightmares. He does not feel that the trazodone helps in any means, wakes up or helping him sleep and the Prozac, he does not feel that, that has done much either. He would like to get his medications adjusted and he states that his intention is to going forward and he states he will attend AA meetings on line instead of going once a week in person because the other AA meetings have started up. He states that if he is unable to maintain sobriety on his own, he will look to go to treatment and he states that the women treatment in [facility] is a program that he is still with and that could be possibly for him if he needs to go into treatment moving forward. MEDICATIONS: At the time of admission: 1. Keppra 750 mg b.i.d. 2. Trazodone 50 mg at bedtime. 3. Seroquel 25 mg at bedtime. 4. Prozac 40 mg daily. 5. Toprol-XL 12.5 mg daily. 6. Possibility of being on prazosin, but the patient is not sure on the unit. 7. Ativan p.r.n. 8. Protonix. ALLERGIES: 1. PENICILLIN. 2. ERYTHROMYCIN. PAST MEDICAL HISTORY: 1. History of grand mal seizures that I related to the subdural hematoma and alcohol withdrawal. 2. More recently history of diagnosed pseudoseizures. 3. History of hypokalemia. 4. History of pancreatitis. 5. History of gastritis. 6. History of colitis. 7. Status post gastric bypass. REVIEW OF SYSTEMS: Aside from neuro and GI as well as endocrine, all other major organ systems are negative at this point in time for acute difficulties or complications. FAMILY PSYCHIATRIC AND CD HISTORY: The patient reports a maternal uncle committed suicide. He thinks his son may have schizophrenia in the past with drinking problem. PAST PSYCHIATRIC AND CD HISTORY: The patient reports 1 psychiatric hospitalization back in 2010. He reports 4 CD treatments in the past back in 2016. He states he has been to AA and that itself is longest sobriety, he has been for 6 months since drinking has been a problem, he relapsed with the [place] virus, was drinking 1 L a day of vodka not too long ago. He states he last used about 4 days. Denies any previous suicide attempts or self-injurious behaviors. TREATMENT TEAM REVIEW: Past psychiatric diagnosis of PTSD, clinical depression, alcohol dependence, and SONAM. He has had detox admissions x3. Past psychiatrist was Dr. Rasmussen at [place], [place]. The patient also sees Dr. Lucio for his outpatient care services in [place]. The patient has 1 DWI from 2014. SOCIAL HISTORY: The patient was born in [place], [place]; raised in [place], [place]. He is an only child. He is currently . When he was young, he was raised by his mom and stepfather. He did have some intermittent contact with his father growing up. Mother was an AGRICULTURAL SCIENCE PROFESSOR. Father was a welder explosion. Stepfather is a bakery environmental compliance inspector. 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 The patient has been twice, twice, not involved in any current relationships. First marriage was for 18 years. The patient was for about 3 years and had second marriage for 3 years and then just got earlier this year. He has 4 children from the first marriage. He currently lives in [place] with his 1 son. He was in the [employer] for a number of months, but then "I blew out my knee" and he received the medical discharge. He has a disorderly conduct involving focus with his son that was alcohol related on both their parts. He is pentecostal in terms of his mayda formation. 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 MENTAL STATUS EXAM: The patient is a 49-year-old white male in no apparent distress. Speech is of regular rate and rhythm. The patient is cognitively oriented x3. Psychomotor activity is within normal limits. There are no abnormal motor movements or tics observed. Gait and station are not as though this patient is seated in bed for the purposes of inpatient consult. Mood is anxious and depressed. I felt if is consistent with staying a little restricted, but cooperative overall for the purposes of inpatient consult. There is no behavioral or stated evidence of acute suicidal or homicidal ideation, acute psychotic, delusional, or paranoid symptoms, thought processes; however, significant for racing thoughts, ruminations, and flashback as well as nightmares at night. There are no manic symptoms, loose associations evident. Judgment and insight appear unimpaired at this point in time. Motivation for help appears fairly good. PHYSICAL EXAMINATION: VITAL SIGNS: 165/108, 54, 13, and 98.6 degrees. IMPRESSION: Oark I: 1. Alcohol dependence, F10.20. 2. Bipolar affective disease, mixed type, F31.60. 3. Posttraumatic stress disorder, F43.10. 4. Obsessive compulsive disorder, F42. 5. Rule out major depressive disorder. Oark II: None. Oark III: 1. History of seizures. 2. History of pseudoseizures. 3. History of colitis. 4. History of gastritis. 5. History of hypokalemia. 6. Status post gastric bypass. 7. Status post subdural hematoma with evacuation. Oark IV: Severe. Oark V: 55. PLAN: 1. Sobriety. 2. AA with sobriety maintenance. 3. Pastoral guidance. 4. Social work at [facility] in [place] to work with the patient to get him placed back on insurance since he lost it after he is . 5. Discontinue Prozac. 6. Discontinue trazodone. 7. Begin trial of Topamax 50 mg b.i.d. x3 days, increasing to 75 mg x3 days, increase to 100 mg b.i.d. thereafter. 8. Begin trial of Luvox 100 mg at bedtime for symptoms of depression and OCD. 9. Increase the patient's Seroquel from 25 to 150 mg at bedtime for clarity of thought, elimination of flashbacks, and elimination of any psychotic or paranoid symptoms, also to provide for mood stability and sleep initiation, maintenance, as well as anxiety reduction. 10.Clarify whether the patient is taking prazosin medication and may continue his medication upon discharge of both to help with nightmares and symptoms of PTSD. 11.Recommend the patient follow up in 2 to 4 weeks with outpatient psychiatry to assess his overall function efficacy of his newly initiated and adjusted psychiatric medication regimen. 12.The patient and the patient's mother apprised of benefits and side effects of his newly initiated, adjusted, and continued psychiatric medication regimen. He acknowledges understanding these. He has no further questions by the end of the interview session. 13.Would recommend inpatient CD treatment if the patient is unable to maintain sobriety on his own moving forward. 14.Other medications as dosing prescribed by the patient's inpatient primary care treatment team and may continue the Ativan on an inpatient basis either p.r.n. per [facility] protocol. 15.We will continue to follow up with the patient on an as needed basis while he remains on the inpatient MICU at [facility] in [place], [place]. 16.We will follow up with the patient soon if there are any complications in the interim. 17.A crisis plan is in place. Baljeet Tai MD /[phone]
[2020-06-11] MEDS: Pantoprazole 40 MG Tab.CR PO SCH (07:46)
[2020-06-11] MEDS: Metoprolol Succinate 25 MG Tab.ER PO SCH (09:06)
[2020-06-11] MEDS: Topiramate 25 MG Tab PO SCH (09:07)
[2020-06-11 09:08] VITALS: PULSE 84
[2020-06-11] MEDS: levETIRAcetam 250 MG Tab PO SCH (09:08)
[2020-06-11] MEDS: Potassium Chloride 20 MEQ Tab.ER PO SCH (09:08)
[2020-06-11] MEDS: Ibuprofen 400 MG Tab PO PRN (09:11)
[2020-06-11 14:03] VITALS: BP 135/80
--- NOTE | 2020-06-11 14:19 | PCM.DCSUM1 ---
Discharge Summary - Hospital Course Brief History: Mr. Luna is a 49-year-old gentleman who was admitted to observation status through the emergency department for further evaluation and management of nonelliptical seizures as well as his severe anxiety and depression. - Discharge Data Discharge Date: 06/11/20 Discharge Disposition: Home, Self-Care 01 Condition: Fair - Referral to Home Health Primary Care Physician: Baljeet Lucio MD - Discharge Diagnosis/Problem(s) (1) Anxiety SNOMED Code(s): 11695045 ICD Code: F41.9 - ANXIETY DISORDER, UNSPECIFIED Status: Acute Current Visit: Yes (2) Convulsion, non-epileptic SNOMED Code(s): 66704191 ICD Code: R56.9 - UNSPECIFIED CONVULSIONS Status: Acute Current Visit: Yes (3) Unresponsive episode SNOMED Code(s): 679931832 ICD Code: R41.89 - OTH SYMPTOMS AND SIGNS W COGNITIVE FUNCTIONS AND AWARENESS Status: Acute Current Visit: Yes (4) Hypokalemia SNOMED Code(s): 94003428 ICD Code: E87.6 - HYPOKALEMIA Status: Acute Current Visit: Yes (5) Depression SNOMED Code(s): 17262644 ICD Code: F32.9 - MAJOR DEPRESSIVE DISORDER, SINGLE EPISODE, UNSPECIFIED Status: Chronic Priority: Low Current Visit: No Qualifiers: Depression Type: other depression Qualified Code(s): F32.89 - Other specified depressive episodes - Patient Summary/Data Consults: Consultations 06/09/20 19:41 Consult to Physician [CONS] Routine Consulting Provider: Baljeet Tai Courtesy Call Completed to Consulting Physician: No Reason for Consult: Anxiety, nonepileptiform seizures Hospital Course: Mr. Luna is a 49-year-old gentleman who I was asked to see by Dr. Heredia in the emergency department for possible admission. He has had a longstanding difficulty with alcohol abuse and recurrent admissions for alcohol withdrawal. He did fall approximately 4 months ago and experienced a subdural hematoma which required surgical evacuation. Following this he did have 2 seizures and was started on therapy with Keppra. Recently he had difficulty with possible seizure activity and was hospitalized at [facility]. He was placed on continuous EEG monitoring and did have at least one episode while monitored, this showed no epileptic activity associated with possible seizure. He was felt to have a history of seizure disorder associated with his subdural hematoma and was continued on Keppra. He was also felt to have nonelliptic seizure activity noted during the hospitalization. He was hospitalized at this facility last week for alcohol withdrawal as well as acute pancreatitis. He was just discharged home 4 days ago. Last night began to have episodes of jaw tremor and shaking of his upper extremities, similar to what he had experienced while at [facility]. On entering the room I did witness a similar episode with some clenching of his jaw, mild tremor of the upper extremities, and a brief episode of unresponsiveness. Following this episode he had transient slurring and garbled speech that resolved relatively quickly. I discussed the recent fin dings at [facility] at length with the patient as well as his mother who was present. He is willing to explore further psychiatric evaluation and counseling. The plan was to proceed with observation admission to facilitate psychiatric involvement via telemedicine. On the day following admission he was seen and evaluated by Dr. Tai for a telemedicine psychiatric consult. Dr. Tai did recommend that the Prozac and trazodone be discontinued. He recommended an increased dose of Seroquel to 150 mg p.o. nightly as well as starting Luvox 100 mg p.o. nightly. He was also started on Topamax 50 mg p.o. twice daily with the recommendation that this be increased to 100 mg twice daily over the next few weeks. Mr. Luna did continue to experience seizure-like episodes through his hospital stay these were fairly transient in nature and associated with only minimal post ictal periods. Of note was that he did experience episodes of diaphoresis with several of these episodes. He will be discharged home with his new medications. Activity will be as tolerated and he will resume his usual diet. Follow-up appointment will be scheduled with his primary care provider within 1 week. Follow-up appointment with psychiatry will be scheduled in 2 weeks. - Patient Instructions Diet: Usual Diet as Tolerated Activity: As Tolerated Other/Special Instructions: Please schedule follow-up appointment with Dr. Lucio within 1 week. Please schedule follow-up appointment with Dr. Tai in 2 weeks. Discontinue Prozac and trazodone. New prescription written for increased dose of Seroquel as well as new medications Topamax and Luvox. - Discharge Plan *PRESCRIPTION DRUG MONITORING PROGRAM REVIEWED*: Not Applicable *COPY OF PRESCRIPTION DRUG MONITORING REPORT IN PATIENT LIZA: Not Applicable Prescriptions/Med Rec: Potassium Chloride [Klor-Con M20] 20 meq PO BID #60 tab.er fluvoxaMINE [Luvox] 100 mg PO BEDTIME #30 tablet QUEtiapine [SEROquel] 150 mg PO BEDTIME #45 tablet Topiramate [Topamax] 50 mg PO BID #120 tablet Home Medications: Home Meds Metoprolol Succinate [Toprol XL] 12.5 mg PO DAILY 05/31/20 [History] Potassium Chloride [Klor-Con M20] 20 meq PO BID #60 tab.er 06/11/20 [Rx] QUEtiapine [SEROquel] 150 mg PO BEDTIME #45 tablet 06/11/20 [Rx] Topiramate [Topamax] 50 mg PO BID #120 tablet 06/11/20 [Rx] fluvoxaMINE [Luvox] 100 mg PO BEDTIME #30 tablet 06/11/20 [Rx] Referrals: Baljeet Lucio MD [Primary Care Provider] - 06/15/20 1:30 pm - Discharge Summary/Plan Comment DC Time >30 min.: No - Patient Data Vitals - Most Recent: Last Vital Signs Temp 97.3 F 06/11/20 12:00 Pulse 84 06/11/20 09:06 Resp 12 06/11/20 14:00 BP 135/80 06/11/20 14:00 Pulse Ox 95 06/11/20 14:00 Weight - Most Recent: 199 lb 1.239 oz I&O - Last 24 hours: Intake & Output 06/10/20 06/11/20 06/11/20 22:59 06:59 14:59 Intake Total 1200 2620 Output Total 275 1160 325 Balance 925 1460 -325 Med Orders - Current: Current Medications Acetaminophen (Tylenol) 650 mg PO Q4H PRN PRN Reason: Pain (Mild 1-3)/fever Last Admin: 06/10/20 15:49 Dose: 650 mg Documented by: Fluvoxamine Maleate (Luvox) 100 mg PO BEDTIME CAREY Last Admin: 06/10/20 20:08 Dose: 100 mg Documented by: Ibuprofen (Motrin) 400 mg PO Q6H PRN PRN Reason: Pain Last Admin: 06/11/20 09:11 Dose: 400 mg Documented by: Levetiracetam (Keppra) 750 mg PO BID [facility] Last Admin: 06/11/20 09:08 Dose: 750 mg Documented by: Lorazepam (Ativan) 0.5 mg PO Q4H PRN PRN Reason: Anxiety Last Admin: 06/09/20 20:12 Dose: 0.5 mg Documented by: Metoprolol Succinate (Toprol Xl) 12.5 mg PO DAILY [facility] Last Admin: 06/11/20 09:06 Dose: 12.5 mg Documented by: Ondansetron HCl (Zofran) 4 mg IV Q4H PRN PRN Reason: Nausea/Vomiting Last Admin: 06/10/20 20:22 Dose: 4 mg Documented by: Pantoprazole Sodium (Protonix) 40 mg PO ACBREAKFAST [facility] Last Admin: 06/11/20 07:46 Dose: 40 mg Documented by: Potassium Chloride (Klor-Con M20) 20 meq PO BID [facility] Last Admin: 06/11/20 09:08 Dose: 20 meq Documented by: Quetiapine Fumarate 100 mg/ (Quetiapine Fumarate 50 mg) 150 mg PO BEDTIME [facility] Last Admin: 06/10/20 20:08 Dose: 150 mg Documented by: Sodium Chloride (Saline Flush) 10 ml FLUSH ASDIRECTED PRN PRN Reason: Keep Vein Open Topiramate (Topamax) 50 mg PO BID [facility] Last Admin: 06/11/20 09:07 Dose: 50 mg Documented by: Discontinued Medications Acetaminophen (Tylenol) 650 mg PO Q6H PRN PRN Reason: Anxiety Last Admin: 06/09/20 14:31 Dose: 650 mg Documented by: Fluoxetine HCl (Prozac) 40 mg PO DAILY [facility] Last Admin: 06/10/20 09:15 Dose: 40 mg Documented by: Sodium Chloride (Normal Saline) 1,000 mls @ 999 mls/hr IV ASDIRECTED [facility] Last Admin: 06/09/20 11:59 Dose: 999 mls/hr Documented by: Potassium Chloride 20 meq/Lidocaine HCl 2 ml/ Sodium Chloride 112 mls @ 56 mls/hr IV ONETIME ONE Stop: 06/09/20 15:59 Last Admin: 06/09/20 14:32 Dose: 56 mls/hr Documented by: Ondansetron HCl (Zofran) 4 mg IVPUSH ONETIME ONE Stop: 06/09/20 11:51 Last Admin: 06/09/20 11:58 Dose: 4 mg Documented by: Potassium Chloride (Klor-Con M20) 20 meq PO ONETIME ONE Stop: 06/09/20 17:21 Last Admin: 06/09/20 17:25 Dose: 20 meq Documented by: Potassium Chloride (Klor-Con M20) Confirm Administered Dose 20 meq .ROUTE .STK- MED ONE Stop: 06/09/20 17:39 Last Admin: 06/09/20 20:12 Dose: Not Given Documented by: Potassium Chloride (Klor-Con M20) 40 meq PO ONETIME ONE Stop: 06/09/20 19:42 Last Admin: 06/09/20 20:12 Dose: 40 meq Documented by: Quetiapine Fumarate (Seroquel) 25 mg PO BEDTIME [facility] Last Admin: 06/09/20 21:41 Dose: 25 mg Documented by: Trazodone HCl (Trazodone) 50 mg PO BEDTIME [facility] Last Admin: 06/09/20 21:41 Dose: 50 mg Documented by: - Exam General: Reports: Alert, Oriented, Cooperative, Mild Distress Lungs: Reports: Clear to Auscultation, Normal Respiratory Effort Cardiovascular: Reports: Regular Rate, Regular Rhythm, No Murmurs GI/Abdominal Exam: Soft, Non-Tender, No Organomegaly, No Distention
== END 2020-06-11 15:24 | disposition home or self-care (01) ==
LOC: JP.ED 11:08 → JP.ICU 17:13
PROVIDERS: ADMIT Hospitalist; ATTEND Hospitalist
DX: F10.10 Alcohol abuse, uncomplicated (principal); K85.90 Acute pancreatitis without necrosis or infection, unspecified; R56.9 Unspecified convulsions; E87.6 Hypokalemia; F31.60 Bipolar disorder, current episode mixed, unspecified; F43.10 Post-traumatic stress disorder, unspecified; F41.9 Anxiety disorder, unspecified; Z79.899 Other long term (current) drug therapy
CPT/HCPCS: 36415; 70450; 70450-26; 80053; 80307; 81001; 82150; 83690; 84132; 85025; 93005; A9270-GY; J2001; J2405; J3480; J7030

== ENCOUNTER 2020-06-16 11:28 | Emergency (ER) | payer OTHER, SELFPAY ==
--- NOTE | 2020-06-16 11:43 | EDM.PDOC ---
ED HPI GENERAL MEDICAL PROBLEM - General Chief Complaint: Drug or Alcohol Abuse Stated Complaint: MEDICAL VIA [facility] Time Seen by Provider: 06/16/20 11:43 Source of Information: Reports: Patient History Limitations: Reports: No Limitations - History of Present Illness INITIAL COMMENTS - FREE TEXT/NARRATIVE: pt was brought in by ambulance because he waas quite out of control. He states some foreign umesh came to his house and he should not have been there. He states he drank last mon and that was the last time. Onset: Today Duration: Hour(s): Location: Reports: Generalized Associated Symptoms: Reports: Other (pt is spitting continuously. He says his pancreatitis is flared. ) - Related Data Allergies Allergy/AdvReac Type Severity Reaction Status Date / Time Penicillins Allergy Hives Verified 06/09/20 11:27 erythromycin base AdvReac Nausea Verified 06/09/20 11:27 Home Meds: Home Meds Metoprolol Succinate [Toprol XL] 12.5 mg PO DAILY 05/31/20 [History] Potassium Chloride [Klor-Con M20] 20 meq PO BID #60 tab.er 06/11/20 [Rx] QUEtiapine [SEROquel] 150 mg PO BEDTIME #45 tablet 06/11/20 [Rx] Topiramate [Topamax] 50 mg PO BID #120 tablet 06/11/20 [Rx] fluvoxaMINE [Luvox] 100 mg PO BEDTIME #30 tablet 06/11/20 [Rx] levETIRAcetam [Keppra] 1,000 mg PO TID 06/16/20 [History] Lactalose 30 mg PO BID 06/21/20 [History] Past Medical History HEENT History: Reports: Impaired Vision Cardiovascular History: Reports: Arrhythmia, CAD, Hypertension, [place], Other (See Below) Other Cardiovascular History: svt Respiratory History: Reports: Bronchitis, Recurrent Gastrointestinal History: Reports: Diverticulosis, Pancreatitis Genitourinary History: Reports: Prostate Disorder, Renal Calculus Musculoskeletal History: Reports: Fracture Other Musculoskeletal History: dislocated shoulder Neurological History: Reports: Brain Injury, Concussion, Seizure Other Neuro History: subderal hematoma Psychiatric History: Reports: Addiction, Anxiety, Depression, Panic Attack, Psych Hospitalization(s), PTSD, Suicide Attempt Other Psychiatric History: Major depressive disorder. ETOH Endocrine/Metabolic History: Reports: Diabetes, Type II, Other (See Below) Other Endocrine/Metabolic History: type II diabetes history Hematologic History: Reports: B12 Deficiency, Folic Acid Immunologic History: Reports: Other (See Below) Other Immunologic History: anaplasmosis, lyme disease Dermatologic History: Reports: Eczema - Infectious Disease History Infectious Disease History: Reports: Chicken Pox - Past Surgical History GI Surgical History: Reports: Bariatric Procedure, Cholecystectomy, Colonoscopy Musculoskeletal Surgical History: Reports: Arthroscopic Knee Social & Family History - Family History Family Medical History: Noncontributory - Caffeine Use Caffeine Use: Reports: None - Living Situation & Occupation Living situation: Reports: with Significant Other (reports is getting divorce from in [place], living with his son.) Occupation: Employed ED ROS GENERAL - Review of Systems Review Of Systems: See Below Constitutional: Reports: No Symptoms HEENT: Reports: No Symptoms Respiratory: Reports: No Symptoms Cardiovascular: Reports: No Symptoms Endocrine: Reports: No Symptoms GI/Abdominal: Reports: No Symptoms : Reports: No Symptoms Musculoskeletal: Reports: No Symptoms Skin: Reports: No Symptoms - Physical Exam Exam: See Below Text/Narrative:: Pt is very agitated and screaming out. Alot of the time he is not making alot of sense. He Is continually spitting He has fallen 5 times in the last week. He is having what is thought to be pseudoseizures and when he he feels like they are coming on he wants a Keppara. I would question if he is taking one at home each time it is coming. Exam Limited By: No Limitations General Appearance: Alert, Anxious, Other ( pt is yelling out. ) Ears: Normal TMs Nose: Normal Inspection Throat/Mouth: Normal Inspection Head Exam: Atraumatic Neck: Normal Inspection Respiratory/Chest: No Respiratory Distress Cardiovascular: Regular Rate, Rhythm GI/Abdominal: Soft, Tender, Other (pt is tender in the upper abdoman. ) (Male) Exam: Deferred Rectal (Males) Exam: Deferred Neuro Exam (Abbreviated): Alert, Confused, Other (pt is screaming out. ) Extremities: Other (pt has multiple bruises everywhere where he has been falling. ) Psychiatric: Tearful Course - Vital Signs Last Recorded V/S: Last Vital Signs Temp 37.7 C 06/16/20 16:39 Pulse 89 06/16/20 16:39 Resp 18 06/16/20 16:39 BP 163/88 H 06/16/20 16:39 Pulse Ox 98 06/16/20 16:39 - Orders/Labs/Meds Labs: Laboratory Tests 06/16/20 06/16/20 06/16/20 Range/Units 11:49 11:49 11:49 WBC 22.2 H (4.5-11.0) K/uL RBC 4.81 (4.30-5.90) M/uL Hgb 14.1 (12.0-15.0) g/dL Hct 42.2 (40.0-54.0) % MCV 88 (80-98) fL MCH 29 (27-31) pg MCHC 33 (32-36) % Plt Count 521 H (150-400) K/uL Neut % (Auto) 94 H (36-66) % Lymph % (Auto) 4 L (24-44) % [place] % (Auto) 3 (2-6) % Eos % (Auto) 0 L (2-4) % Baso % (Auto) 0 (0-1) % VBG pH (7.350-7.450) Sodium 132 L (140-148) mmol/L Potassium 3.9 (3.6-5.2) mmol/L Chloride 99 L (100-108) mmol/L Carbon Dioxide 16 L (21-32) mmol/L Anion Gap 20.9 H (5.0-14.0) mmol/L BUN 10 D (7-18) mg/dL Creatinine 1.1 (0.8-1.3) mg/dL Est Cr Clr Drug Dosing 74.92 mL/min Estimated GFR (MDRD) > 60 (>60) Glucose 187 H (74-106) mg/dL Lactic Acid (0.4-2.0) mmol/L Calcium 8.6 (8.5-10.1) mg/dL Total Bilirubin 0.5 (0.2-1.0) mg/dL AST 27 (15-37) U/L ALT 32 (12-78) U/L Alkaline Phosphatase 136 H (46-116) U/L Total Protein 6.2 L (6.4-8.2) g/dL Albumin 3.6 (3.4-5.0) g/dL Globulin 2.6 (2.3-3.5) g/dL Albumin/Globulin Ratio 1.4 (1.2-2.2) Amylase (25-115) U/L Lipase (73-393) U/L Urine Color (YELLOW) Urine Appearance (CLEAR) Urine pH (5.0-8.0) Ur Specific [place] (1.008-1.030) Urine Protein (NEGATIVE) mg/dL Urine Glucose (UA) (NEGATIVE) mg/dL Urine Ketones (NEGATIVE) mg/dL Urine Occult Blood (NEGATIVE) Urine Nitrite (NEGATIVE) Urine Bilirubin (NEGATIVE) Urine Urobilinogen (0.2-1.0) EU/dL Ur Leukocyte Esterase (NEGATIVE) Urine RBC (0-5) Urine WBC (0-5) Ur Epithelial Cells Amorphous Sediment Urine Bacteria Urine Mucus Urine Opiates Screen (NEGATIVE) Ur Oxycodone Screen (NEGATIVE) Urine Methadone Screen (NEGATIVE) Ur Propoxyphene Screen (NEGATIVE) Ur Barbiturates Screen (NEGATIVE) Ur Tricyclics Screen (NEGATIVE) Levetiracetam (10.0-40.0) ug/mL Ur Phencyclidine Scrn (NEGATIVE) Ur Amphetamine Screen (NEGATIVE) U Methamphetamines Scrn (NEGATIVE) Urine MDMA Screen (NEGATIVE) U Benzodiazepines Scrn (NEGATIVE) U Cocaine Metab Screen (NEGATIVE) U Marijuana (THC) Screen (NEGATIVE) Ethyl Alcohol < 3 mg/dL SARS CoV-2 RNA Rapid CATALINA 06/16/20 06/16/20 06/16/20 Range/Units 11:49 11:49 11:51 WBC (4.5-11.0) K/uL RBC (4.30-5.90) M/uL Hgb (12.0-15.0) g/dL Hct (40.0-54.0) % MCV (80-98) fL MCH (27-31) pg MCHC (32-36) % Plt Count (150-400) K/uL Neut % (Auto) (36-66) % Lymph % (Auto) (24-44) % [place] % (Auto) (2-6) % Eos % (Auto) (2-4) % Baso % (Auto) (0-1) % VBG pH (7.350-7.450) Sodium (140-148) mmol/L Potassium (3.6-5.2) mmol/L Chloride (100-108) mmol/L Carbon Dioxide (21-32) mmol/L Anion Gap (5.0-14.0) mmol/L BUN (7-18) mg/dL Creatinine (0.8-1.3) mg/dL Est Cr Clr Drug Dosing mL/min Estimated GFR (MDRD) (>60) Glucose (74-106) mg/dL Lactic Acid (0.4-2.0) mmol/L Calcium (8.5-10.1) mg/dL Total Bilirubin (0.2-1.0) mg/dL AST (15-37) U/L ALT (12-78) U/L Alkaline Phosphatase (46-116) U/L Total Protein (6.4-8.2) g/dL Albumin (3.4-5.0) g/dL Globulin (2.3-3.5) g/dL Albumin/Globulin Ratio (1.2-2.2) Amylase 85 (25-115) U/L Lipase 166 (73-393) U/L Urine Color (YELLOW) Urine Appearance (CLEAR) Urine pH (5.0-8.0) Ur Specific [place] (1.008-1.030) Urine Protein (NEGATIVE) mg/dL Urine Glucose (UA) (NEGATIVE) mg/dL Urine Ketones (NEGATIVE) mg/dL Urine Occult Blood (NEGATIVE) Urine Nitrite (NEGATIVE) Urine Bilirubin (NEGATIVE) Urine Urobilinogen (0.2-1.0) EU/dL Ur Leukocyte Esterase (NEGATIVE) Urine RBC (0-5) Urine WBC (0-5) Ur Epithelial Cells Amorphous Sediment Urine Bacteria Urine Mucus Urine Opiates Screen Negative (NEGATIVE) Ur Oxycodone Screen Negative (NEGATIVE) Urine Methadone Screen Negative (NEGATIVE) Ur Propoxyphene Screen Negative (NEGATIVE) Ur Barbiturates Screen Presumptive positive H (NEGATIVE) Ur Tricyclics Screen Negative (NEGATIVE) Levetiracetam 20.5 (10.0-40.0) ug/mL Ur Phencyclidine Scrn Negative (NEGATIVE) Ur Amphetamine Screen Negative (NEGATIVE) U Methamphetamines Scrn Negative (NEGATIVE) Urine MDMA Screen Negative (NEGATIVE) U Benzodiazepines Scrn Negative (NEGATIVE) U Cocaine Metab Screen Negative (NEGATIVE) U Marijuana (THC) Screen Negative (NEGATIVE) Ethyl Alcohol mg/dL SARS CoV-2 RNA Rapid CAT[place]INA 06/16/20 06/16/20 06/16/20 Range/Units 12:40 12:50 14:00 WBC (4.5-11.0) K/uL RBC (4.30-5.90) M/uL Hgb (12.0-15.0) g/dL Hct (40.0-54.0) % MCV (80-98) fL MCH (27-31) pg MCHC (32-36) % Plt Count (150-400) K/uL Neut % (Auto) (36-66) % Lymph % (Auto) (24-44) % [place] % (Auto) (2-6) % Eos % (Auto) (2-4) % Baso % (Auto) (0-1) % VBG pH 7.436 (7.350-7.450) Sodium (140-148) mmol/L Potassium (3.6-5.2) mmol/L Chloride (100-108) mmol/L Carbon Dioxide (21-32) mmol/L Anion Gap (5.0-14.0) mmol/L BUN (7-18) mg/dL Creatinine (0.8-1.3) mg/dL Est Cr Clr Drug Dosing mL/min Estimated GFR (MDRD) (>60) Glucose (74-106) mg/dL Lactic Acid 2.6 H (0.4-2.0) mmol/L Calcium (8.5-10.1) mg/dL Total Bilirubin (0.2-1.0) mg/dL AST (15-37) U/L ALT (12-78) U/L Alkaline Phosphatase (46-116) U/L Total Protein (6.4-8.2) g/dL Albumin (3.4-5.0) g/dL Globulin (2.3-3.5) g/dL Albumin/Globulin Ratio (1.2-2.2) Amylase (25-115) U/L Lipase (73-393) U/L Urine Color Yellow (YELLOW) Urine Appearance Cloudy A (CLEAR) Urine pH 6.0 (5.0-8.0) Ur Specific [place] 1.025 (1.008-1.030) Urine Protein Negative (NEGATIVE) mg/dL Urine Glucose (UA) Negative (NEGATIVE) mg/dL Urine Ketones 40 H (NEGATIVE) mg/dL Urine Occult Blood Negative (NEGATIVE) Urine Nitrite Negative (NEGATIVE) Urine Bilirubin Negative (NEGATIVE) Urine Urobilinogen 0.2 (0.2-1.0) EU/dL Ur Leukocyte Esterase Negative (NEGATIVE) Urine RBC Not seen (0-5) Urine WBC Not seen (0-5) Ur Epithelial Cells Rare Amorphous Sediment Numerous Urine Bacteria Many Urine Mucus Few Urine Opiates Screen (NEGATIVE) Ur Oxycodone Screen (NEGATIVE) Urine Methadone Screen (NEGATIVE) Ur Propoxyphene Screen (NEGATIVE) Ur Barbiturates Screen (NEGATIVE) Ur Tricyclics Screen (NEGATIVE) Levetiracetam (10.0-40.0) ug/mL Ur Phencyclidine Scrn (NEGATIVE) Ur Amphetamine Screen (NEGATIVE) U Methamphetamines Scrn (NEGATIVE) Urine MDMA Screen (NEGATIVE) U Benzodiazepines Scrn (NEGATIVE) U Cocaine Metab Screen (NEGATIVE) U Marijuana (THC) Screen (NEGATIVE) Ethyl Alcohol mg/dL SARS CoV-2 RNA Rapid [place] 06/16/20 Range/Units 14:55 WBC (4.5-11.0) K/uL RBC (4.30-5.90) M/uL Hgb (12.0-15.0) g/dL Hct (40.0-54.0) % MCV (80-98) fL MCH (27-31) pg MCHC (32-36) % Plt Count (150-400) K/uL Neut % (Auto) (36-66) % Lymph % (Auto) (24-44) % [place] % (Auto) (2-6) % Eos % (Auto) (2-4) % Baso % (Auto) (0-1) % VBG pH (7.350-7.450) Sodium (140-148) mmol/L Potassium (3.6-5.2) mmol/L Chloride (100-108) mmol/L Carbon Dioxide (21-32) mmol/L Anion Gap (5.0-14.0) mmol/L BUN (7-18) mg/dL Creatinine (0.8-1.3) mg/dL Est Cr Clr Drug Dosing mL/min Estimated GFR (MDRD) (>60) Glucose (74-106) mg/dL Lactic Acid (0.4-2.0) mmol/L Calcium (8.5-10.1) mg/dL Total Bilirubin (0.2-1.0) mg/dL AST (15-37) U/L ALT (12-78) U/L Alkaline Phosphatase (46-116) U/L Total Protein (6.4-8.2) g/dL Albumin (3.4-5.0) g/dL Globulin (2.3-3.5) g/dL Albumin/Globulin Ratio (1.2-2.2) Amylase (25-115) U/L Lipase (73-393) U/L Urine Color (YELLOW) Urine Appearance (CLEAR) Urine pH (5.0-8.0) Ur Specific [place] (1.008-1.030) Urine Protein (NEGATIVE) mg/dL Urine Glucose (UA) (NEGATIVE) mg/dL Urine Ketones (NEGATIVE) mg/dL Urine Occult Blood (NEGATIVE) Urine Nitrite (NEGATIVE) Urine Bilirubin (NEGATIVE) Urine Urobilinogen (0.2-1.0) EU/dL Ur Leukocyte Esterase (NEGATIVE) Urine RBC (0-5) Urine WBC (0-5) Ur Epithelial Cells Amorphous Sediment Urine Bacteria Urine Mucus Urine Opiates Screen (NEGATIVE) Ur Oxycodone Screen (NEGATIVE) Urine Methadone Screen (NEGATIVE) Ur Propoxyphene Screen (NEGATIVE) Ur Barbiturates Screen (NEGATIVE) Ur Tricyclics Screen (NEGATIVE) Levetiracetam (10.0-40.0) ug/mL Ur Phencyclidine Scrn (NEGATIVE) Ur Amphetamine Screen (NEGATIVE) U Methamphetamines Scrn (NEGATIVE) Urine MDMA Screen (NEGATIVE) U Benzodiazepines Scrn (NEGATIVE) U Cocaine Metab Screen (NEGATIVE) U Marijuana (THC) Screen (NEGATIVE) Ethyl Alcohol mg/dL SARS CoV-2 RNA Rapid CATALINA Negative Meds: Medications Discontinued Medications Generic Name Dose Route Start Last Admin Trade Name Freq PRN Reason Stop Dose Admin Haloperidol Lactate 2 mg 06/16/20 16:53 06/16/20 16:59 Haldol IM 06/16/20 16:54 2 mg ONETIME ONE Administration Sodium Chloride 1,000 mls @ 999 mls/hr 06/16/20 12:00 06/16/20 12:57 Normal Saline IV 999 mls/hr ASDIRECTED CAREY Administration Lorazepam 1 mg 06/16/20 12:59 06/16/20 13:11 Ativan IVPUSH 06/16/20 13:00 1 mg ONETIME ONE Administration Lorazepam 1 mg 06/16/20 13:33 06/16/20 13:47 Ativan IVPUSH 06/16/20 13:34 1 mg ONETIME ONE Administration Lorazepam Confirm 06/16/20 13:35 06/16/20 13:47 Ativan Administered 06/16/20 13:36 Not Given Dose 2 mg .ROUTE .STK-MED ONE Lorazepam 0.5 mg 06/16/20 14:18 06/16/20 14:27 Ativan PO 06/16/20 14:19 0.5 mg ONETIME ONE Administration Lorazepam 1 mg 06/16/20 16:10 06/16/20 16:13 Ativan PO 06/16/20 16:11 1 mg ONETIME ONE Administration Lorazepam 0.5 mg 06/16/20 16:54 06/16/20 17:00 Ativan IVPUSH 06/16/20 16:55 0.5 mg ONETIME ONE Administration - Re-Assessments/Exams Free Text/Narrative Re-Assessment/Exam: 06/16/20 15:45 pt has a mildly elevated lactic acid and his wbc i 22,000. He does not have a fever. His chest xray was neg. He has some bacteria in the urine a culture was set up. His cat scan of the head is neg. His pancreatic enzymes are neg. Departure - Departure Time of Disposition: 18:30 Disposition: DC/Tfer to Acute Hospital 02 Condition: Fair Clinical Impression: Confusion, Drug toxicity, Dehydration - Discharge Information Referrals: PCP,None [Ordering Only Provider] - Forms: ED Department Discharge Care Plan Goals: transfer to [facility]-- [facility]. Sepsis Event Note (ED) - Evaluation Sepsis Screening Result: No Definite Risk
[2020-06-16] MEDS ORDERED: Sodium Chloride 0.9% 1,000 ML IV SCH (12:00)
[2020-06-16] MEDS ORDERED: LORazepam 2 MG/ML SDV IVPUSH ONE ×3 (12:59→16:54)
[2020-06-16] MEDS ORDERED: LORazepam 2 MG/ML SDV ONE (13:35)
--- NOTE | 2020-06-16 14:04 | CT ---
Head wo Cont CLINICAL HISTORY: Hallucinations, confusion COMPARISON: 06/09/2020 TECHNIQUE: Transverse scans were obtained from the base of the skull through the vertex without IV contrast on a multislice, multidetector CT scanner. Auto dosage reduction and iterative reconstruction techniques employed. FINDINGS: Patient has had previous right the frontal parietal craniotomy. No focal abnormal parenchymal density is identified. There is no mass effect, hemorrhage, or extraaxial collection. The basal cisterns and sulci over the convexities are normal. The ventricles are normal. IMPRESSION: Previous right craniotomy No acute intracranial process identified
[2020-06-16] MEDS ORDERED: LORazepam 0.5 MG Tab PO ONE (14:18)
--- NOTE | 2020-06-16 14:35 | CR ---
CHEST: 2 view CLINICAL HISTORY:Elevated white count COMPARISON:05/31/2020 FINDINGS: The heart size, pulmonary vascularity and hilar structures are normal. No infiltrate effusion or pneumothorax is seen. IMPRESSION: No acute cardiopulmonary process.
[2020-06-16] MEDS ORDERED: LORazepam 1 MG Tab PO ONE (16:10)
[2020-06-16 16:40] VITALS: BP 163/88; PULSE 89
[2020-06-16] MEDS ORDERED: Haloperidol Lactate 5 MG/ML SDV IM ONE (16:53)
== END 2020-06-16 17:55 ==
LOC: JP.ED 11:28
DX: T50.901A Poisoning by unspecified drugs, medicaments and biological substances, accidental (unintentional), initial encounter (principal); R41.0 Disorientation, unspecified; I25.10 Atherosclerotic heart disease of native coronary artery without angina pectoris; I10 Essential (primary) hypertension; I25.2 Old myocardial infarction; R56.9 Unspecified convulsions; F41.9 Anxiety disorder, unspecified; F32.9 Major depressive disorder, single episode, unspecified; E11.9 Type 2 diabetes mellitus without complications; Z20.828 Contact with and (suspected) exposure to other viral communicable diseases; Z88.0 Allergy status to penicillin; Z88.1 Allergy status to other antibiotic agents; Z79.899 Other long term (current) drug therapy
CPT/HCPCS: 36415; 70450; 71046; 80053; 80177; 80305; 80307; 81001; 82150; 82800; 83605; 83690; 85025; 87040; 87086; 87635; 96372; 96374; 96376; 99285; A9270; J1630; J2060; J7030; U0002

== ENCOUNTER 2020-06-21 17:28 | Emergency (ER) | payer OTHER ==
[2020-06-21 17:49] VITALS: BP 132/90; PULSE 86
--- NOTE | 2020-06-21 18:11 | EDM.PDOC ---
ED HPI GENERAL MEDICAL PROBLEM - General Chief Complaint: Behavioral/Psych Stated Complaint: PANIC ATTACK, HEADACHE Time Seen by Provider: 06/21/20 18:10 Source of Information: Reports: Patient History Limitations: Reports: No Limitations - History of Present Illness INITIAL COMMENTS - FREE TEXT/NARRATIVE: pt arrived with ahistory of being very anxious. He has been having some of the psuedoseizures. He just can,t calm down tonight. Onset: Today, Gradual Duration: Hour(s):, Other (started about 1 hour ago. ) Location: Reports: Generalized Associated Symptoms: Reports: Headaches Headache Pain Score (Numeric/FACES): 7 - Related Data Allergies Allergy/AdvReac Type Severity Reaction Status Date / Time Penicillins Allergy Hives Verified 06/09/20 11:27 erythromycin base AdvReac Nausea Verified 06/09/20 11:27 Home Meds: Home Meds Metoprolol Succinate [Toprol XL] 12.5 mg PO DAILY 05/31/20 [History] Potassium Chloride [Klor-Con M20] 20 meq PO BID #60 tab.er 06/11/20 [Rx] QUEtiapine [SEROquel] 150 mg PO BEDTIME #45 tablet 06/11/20 [Rx] Topiramate [Topamax] 50 mg PO BID #120 tablet 06/11/20 [Rx] fluvoxaMINE [Luvox] 100 mg PO BEDTIME #30 tablet 06/11/20 [Rx] levETIRAcetam [Keppra] 1,000 mg PO TID 06/16/20 [History] Lactalose 30 mg PO BID 06/21/20 [History] Past Medical History HEENT History: Reports: Impaired Vision Cardiovascular History: Reports: Arrhythmia, CAD, Hypertension, [place], Other (See Below) Other Cardiovascular History: svt Respiratory History: Reports: Bronchitis, Recurrent Gastrointestinal History: Reports: Diverticulosis, Pancreatitis Genitourinary History: Reports: Prostate Disorder, Renal Calculus Musculoskeletal History: Reports: Fracture Other Musculoskeletal History: dislocated shoulder Neurological History: Reports: Brain Injury, Concussion, Seizure Other Neuro History: subderal hematoma Psychiatric History: Reports: Addiction, Anxiety, Depression, Panic Attack, Psych Hospitalization(s), PTSD, Suicide Attempt Other Psychiatric History: Major depressive disorder. ETOH Endocrine/Metabolic History: Reports: Diabetes, Type II, Other (See Below) Other Endocrine/Metabolic History: type II diabetes history Hematologic History: Reports: B12 Deficiency, Folic Acid Immunologic History: Reports: Other (See Below) Other Immunologic History: anaplasmosis, lyme disease Dermatologic History: Reports: Eczema - Infectious Disease History Infectious Disease History: Reports: Chicken Pox - Past Surgical History GI Surgical History: Reports: Bariatric Procedure, Cholecystectomy, Colonoscopy Musculoskeletal Surgical History: Reports: Arthroscopic Knee Social & Family History - Family History Family Medical History: Noncontributory - Tobacco Use Tobacco Use Status *Q: Former Tobacco User Years of Tobacco use: 15 Packs/Tins Daily: 2 Used Tobacco, but Quit: Yes Month/Year Tobacco Last Used: 2004 Second Hand Smoke Exposure: No - Caffeine Use Caffeine Use: Reports: Coffee, Soda - Alcohol Use Days Per Week of Alcohol Use: 7 Number of Drinks Per Day: 20 Total Drinks Per Week: 140 Date of Last Drink: 05/30/20 Time of Last Drink: 20:00 - Recreational Drug Use Recreational Drug Use: Yes Recreational Drug Type: Reports: Marijuana/Hashish Other Recreational Drug Type: Not used in 3 weeks Recreational Drug Use Frequency: Socially - Living Situation & Occupation Living situation: Reports: with Significant Other (reports is getting divorce from in [place], living with his son.) Occupation: Employed ED ROS GENERAL - Review of Systems Review Of Systems: See Below Constitutional: Reports: Other (pt is feeling very anxious. ) HEENT: Reports: No Symptoms Respiratory: Reports: No Symptoms Cardiovascular: Reports: No Symptoms Endocrine: Reports: No Symptoms GI/Abdominal: Reports: No Symptoms : Reports: No Symptoms Musculoskeletal: Reports: No Symptoms Skin: Reports: No Symptoms Neurological: Reports: Headache, Other ( anxious. ) Psychiatric: Reports: Anxiety ED EXAM, NEURO - Physical Exam Exam: See Below Text/Narrative:: pt was hospitalized at [facility] and he was found to have a high amonia level. His Keppara level was normal or therapeutic. He has continued to have some seizure like activity. Exam Limited By: No Limitations General Appearance: Alert, Anxious, Other (pupils are equal and reactive. ) Ears: Normal TMs Nose: Normal Inspection Throat/Mouth: Normal Inspection Head Exam: Atraumatic Neck: Normal Inspection Respiratory/Chest: No Respiratory Distress Cardiovascular: Regular Rate, Rhythm GI/Abdominal: Soft, Non-Tender (Male) Exam: Deferred Rectal (Males) Exam: Deferred Neurological: Alert Back Exam: Normal Inspection Extremities: Normal Inspection Psychiatric: Anxious, Other (pt is doing much better than on the 3rd. ) Course - Vital Signs Last Recorded V/S: Last Vital Signs Temp 36.5 C 06/21/20 17:53 Pulse 86 06/21/20 17:53 Resp 16 06/21/20 17:53 BP 132/90 06/21/20 17:53 Pulse Ox 99 06/21/20 17:53 - Orders/Labs/Meds Labs: Laboratory Tests 06/21/20 06/21/20 06/21/20 Range/Units 18:17 18:17 18:34 WBC 7.0 (4.5-11.0) K/uL RBC 5.02 (4.30-5.90) M/uL Hgb 14.6 (12.0-15.0) g/dL Hct 44.2 (40.0-54.0) % MCV 88 (80-98) fL MCH 29 (27-31) pg MCHC 33 (32-36) % Plt Count 348 (150-400) K/uL Neut % (Auto) 61 (36-66) % Lymph % (Auto) 22 L (24-44) % [place] % (Auto) 8 H (2-6) % Eos % (Auto) 7 H (2-4) % Baso % (Auto) 2 H (0-1) % Sodium 142 (140-148) mmol/L Potassium 3.8 (3.6-5.2) mmol/L Chloride 106 (100-108) mmol/L Carbon Dioxide 25 (21-32) mmol/L Anion Gap 11.1 (5.0-14.0) mmol/L BUN 6 L (7-18) mg/dL Creatinine 1.0 (0.8-1.3) mg/dL Est Cr Clr Drug Dosing 82.41 mL/min Estimated GFR (MDRD) > 60 (>60) Glucose 111 H (74-106) mg/dL Calcium 8.8 (8.5-10.1) mg/dL Ammonia 15 (11-32) mmol/L Meds: Medications Discontinued Medications Generic Name Dose Route Start Last Admin Trade Name Freq PRN Reason Stop Dose Admin Acetaminophen/Codeine Phosphate 1 tab 06/21/20 18:54 06/21/20 18:58 Tylenol With Codeine No.3 300mg/30mg PO 06/21/20 18:55 1 tab ONETIME ONE Administration Ibuprofen 600 mg 06/21/20 18:21 06/21/20 18:32 Motrin PO 06/21/20 18:22 600 mg ONETIME ONE Administration Lorazepam 1 mg 06/21/20 18:20 06/21/20 18:30 Ativan PO 06/21/20 18:21 1 mg ONETIME ONE Administration - Re-Assessments/Exams Free Text/Narrative Re-Assessment/Exam: 06/21/20 19:28 pt has a normal amonia level He was given ativan 1 mg and is feeling much better. Departure - Departure Time of Disposition: 19:29 Disposition: Home, Self-Care 01 Condition: Fair Clinical Impression: Panic attack - Discharge Information Referrals: Baljeet Lucio MD [Primary Care Provider] - Forms: ED Department Discharge Care Plan Goals: try relaxation techniques continue same meds, ativan 1 mg q8h prn for anxiety. Use only when very anxious. The son will help him monitor the ativan. Sepsis Event Note (ED) - Evaluation Sepsis Screening Result: No Definite Risk - Focused Exam Vital Signs: Vital Signs Temp Pulse Resp BP Pulse Ox 06/21/20 17:53 36.5 C 86 16 132/90 99 06/21/20 17:47 36.5 C 86 16 132/90 99
[2020-06-21] MEDS ORDERED: LORazepam 1 MG Tab PO ONE (18:20)
[2020-06-21] MEDS ORDERED: Ibuprofen 600 MG Tab PO ONE (18:21)
[2020-06-21] MEDS ORDERED: Acetaminophen/Codeine 300-30 MG Tab PO ONE (18:54)
== END 2020-06-21 19:39 | disposition home or self-care (01) ==
LOC: JP.ED 17:28
DX: F41.0 Panic disorder [episodic paroxysmal anxiety] (principal); R25.9 Unspecified abnormal involuntary movements; I10 Essential (primary) hypertension; I25.2 Old myocardial infarction; I25.10 Atherosclerotic heart disease of native coronary artery without angina pectoris; F32.9 Major depressive disorder, single episode, unspecified; E11.9 Type 2 diabetes mellitus without complications; Z90.49 Acquired absence of other specified parts of digestive tract; Z87.891 Personal history of nicotine dependence; Z88.0 Allergy status to penicillin; Z88.1 Allergy status to other antibiotic agents; Z79.899 Other long term (current) drug therapy
CPT/HCPCS: 36415; 80048; 82140; 85025; 99284; A9270

== ENCOUNTER 2020-06-29 03:40 | Emergency (ER) | payer OTHER ==
[2020-06-29 03:48] VITALS: BP 122/94; PULSE 93
[2020-06-29] MEDS ORDERED: LORazepam 2 MG/ML SDV IVPUSH ONE (04:07)
[2020-06-29] MEDS ORDERED: levETIRAcetam 1,000 MG in Sodium Chloride 0.9% 100 ML IV ONE (04:07)
--- NOTE | 2020-06-29 04:11 | EDM.PDOC ---
ED HPI GENERAL MEDICAL PROBLEM - General Chief Complaint: Neurological Problem Stated Complaint: MEDICAL VIA [facility] Time Seen by Provider: 06/29/20 04:00 Source of Information: Reports: Patient, Family, RN Notes Reviewed History Limitations: Reports: No Limitations - History of Present Illness INITIAL COMMENTS - FREE TEXT/NARRATIVE: 49-year-old gentleman presents emergency department today with increased seizure type activity he has known history of nonepileptic type seizures admits he did not take his Keppra this evening has been consuming alcohol heavily, has a shaking events but he is able to communicate while having these events headache Pain Score (Numeric/FACES): 7 - Related Data Allergies Allergy/AdvReac Type Severity Reaction Status Date / Time Penicillins Allergy Hives Verified 06/29/20 03:42 erythromycin base AdvReac Nausea Verified 06/29/20 03:42 Home Meds: Home Meds Metoprolol Succinate [Toprol XL] 12.5 mg PO DAILY 05/31/20 [History] Potassium Chloride [Klor-Con M20] 20 meq PO BID #60 tab.er 06/11/20 [Rx] QUEtiapine [SEROquel] 150 mg PO BEDTIME #45 tablet 06/11/20 [Rx] Topiramate [Topamax] 50 mg PO BID #120 tablet 06/11/20 [Rx] fluvoxaMINE [Luvox] 100 mg PO BEDTIME #30 tablet 06/11/20 [Rx] levETIRAcetam [Keppra] 1,000 mg PO TID 06/16/20 [History] Lactalose 30 mg PO BID 06/21/20 [History] Past Medical History HEENT History: Reports: Impaired Vision Cardiovascular History: Reports: Arrhythmia, CAD, Hypertension, [place], Other (See Below) Other Cardiovascular History: svt Respiratory History: Reports: Bronchitis, Recurrent Gastrointestinal History: Reports: Diverticulosis, Pancreatitis Genitourinary History: Reports: Prostate Disorder, Renal Calculus Musculoskeletal History: Reports: Fracture Other Musculoskeletal History: dislocated shoulder Neurological History: Reports: Brain Injury, Concussion, Seizure (Nonepileptic type seizures) Other Neuro History: subderal hematoma Psychiatric History: Reports: Addiction, Anxiety, Depression, Panic Attack, Psych Hospitalization(s), PTSD, Suicide Attempt Other Psychiatric History: Major depressive disorder. ETOH Endocrine/Metabolic History: Reports: Diabetes, Type II, Other (See Below) Other Endocrine/Metabolic History: type II diabetes history Hematologic History: Reports: B12 Deficiency, Folic Acid Immunologic History: Reports: Other (See Below) Other Immunologic History: anaplasmosis, lyme disease Dermatologic History: Reports: Eczema - Infectious Disease History Infectious Disease History: Reports: Chicken Pox - Past Surgical History HEENT Surgical History: Reports: None GI Surgical History: Reports: Bariatric Procedure, Cholecystectomy, Colonoscopy Musculoskeletal Surgical History: Reports: Arthroscopic Knee Social & Family History - Family History Family Medical History: No Pertinent Family History - Tobacco Use Tobacco Use Status *Q: Never Tobacco User - Caffeine Use Caffeine Use: Reports: Coffee - Alcohol Use Date of Last Drink: 06/29/20 Time of Last Drink: 02:00 - Recreational Drug Use Recreational Drug Use: No - Living Situation & Occupation Living situation: Reports: with Significant Other (reports is getting divorce from in [place], living with his son.) Occupation: Employed ED ROS GENERAL - Review of Systems Review Of Systems: See Below Constitutional: Reports: No Symptoms Respiratory: Reports: No Symptoms Cardiovascular: Reports: No Symptoms GI/Abdominal: Reports: No Symptoms Neurological: Reports: Seizure (Nonepileptic type) ED EXAM, NEURO - Physical Exam Exam: See Below Text/Narrative:: Witnessed one of his describes seizures he is able to communicate during this activity consistent with nonepileptic type seizure Exam Limited By: No Limitations General Appearance: Alert, WD/WN, No Apparent Distress Eye Exam: Bilateral Eye: Normal Inspection Respiratory/Chest: No Respiratory Distress, Lungs Clear, Normal Breath Sounds, No Accessory Muscle Use, Chest Non-Tender Cardiovascular: Regular Rate, Rhythm, No Murmur GI/Abdominal: Soft, Non-Tender Neurological: Alert, Normal Mood/Affect, No Motor/Sensory Deficits Course - Vital Signs Last Recorded V/S: Last Vital Signs Temp 98.8 F 06/29/20 03:47 Pulse 93 06/29/20 03:47 Resp 20 06/29/20 03:47 BP 122/94 H 06/29/20 03:47 Pulse Ox 99 06/29/20 03:47 - Orders/Labs/Meds Labs: Laboratory Tests 06/29/20 06/29/20 06/29/20 Range/Units 03:40 03:40 03:40 WBC 9.3 (4.5-11.0) K/uL RBC 5.54 (4.30-5.90) M/uL Hgb 15.9 H (12.0-15.0) g/dL Hct 48.5 (40.0-54.0) % MCV 88 (80-98) fL MCH 29 (27-31) pg MCHC 33 (32-36) % Plt Count 414 H (150-400) K/uL Neut % (Auto) 48 (36-66) % Lymph % (Auto) 40 (24-44) % [place] % (Auto) 5 (2-6) % Eos % (Auto) 5 H (2-4) % Baso % (Auto) 2 H (0-1) % Sodium 144 (140-148) mmol/L Potassium 4.3 (3.6-5.2) mmol/L Chloride 105 (100-108) mmol/L Carbon Dioxide 25 (21-32) mmol/L Anion Gap 14.1 H (5.0-14.0) mmol/L BUN 7 (7-18) mg/dL Creatinine 0.9 (0.8-1.3) mg/dL Est Cr Clr Drug Dosing 91.56 mL/min Estimated GFR (MDRD) > 60 (>60) Glucose 149 H (74-106) mg/dL Calcium 8.1 L (8.5-10.1) mg/dL Total Bilirubin 0.3 (0.2-1.0) mg/dL AST 37 (15-37) U/L ALT 37 (12-78) U/L Alkaline Phosphatase 191 H (46-116) U/L Total Protein 6.3 L (6.4-8.2) g/dL Albumin 3.3 L (3.4-5.0) g/dL Globulin 3.0 (2.3-3.5) g/dL Albumin/Globulin Ratio 1.1 L (1.2-2.2) Urine Opiates Screen (NEGATIVE) Ur Oxycodone Screen (NEGATIVE) Urine Methadone Screen (NEGATIVE) Ur Propoxyphene Screen (NEGATIVE) Ur Barbiturates Screen (NEGATIVE) Ur Tricyclics Screen (NEGATIVE) Ur Phencyclidine Scrn (NEGATIVE) Ur Amphetamine Screen (NEGATIVE) U Methamphetamines Scrn (NEGATIVE) Urine MDMA Screen (NEGATIVE) U Benzodiazepines Scrn (NEGATIVE) U Cocaine Metab Screen (NEGATIVE) U Marijuana (THC) Screen (NEGATIVE) Ethyl Alcohol 291 mg/dL 06/29/20 Range/Units 04:07 WBC (4.5-11.0) K/uL RBC (4.30-5.90) M/uL Hgb (12.0-15.0) g/dL Hct (40.0-54.0) % MCV (80-98) fL MCH (27-31) pg MCHC (32-36) % Plt Count (150-400) K/uL Neut % (Auto) (36-66) % Lymph % (Auto) (24-44) % [place] % (Auto) (2-6) % Eos % (Auto) (2-4) % Baso % (Auto) (0-1) % Sodium (140-148) mmol/L Potassium (3.6-5.2) mmol/L Chloride (100-108) mmol/L Carbon Dioxide (21-32) mmol/L Anion Gap (5.0-14.0) mmol/L BUN (7-18) mg/dL Creatinine (0.8-1.3) mg/dL Est Cr Clr Drug Dosing mL/min Estimated GFR (MDRD) (>60) Glucose (74-106) mg/dL Calcium (8.5-10.1) mg/dL Total Bilirubin (0.2-1.0) mg/dL AST (15-37) U/L ALT (12-78) U/L Alkaline Phosphatase (46-116) U/L Total Protein (6.4-8.2) g/dL Albumin (3.4-5.0) g/dL Globulin (2.3-3.5) g/dL Albumin/Globulin Ratio (1.2-2.2) Urine Opiates Screen Negative (NEGATIVE) Ur Oxycodone Screen Presumptive positive H (NEGATIVE) Urine Methadone Screen Negative (NEGATIVE) Ur Propoxyphene Screen Negative (NEGATIVE) Ur Barbiturates Screen Negative (NEGATIVE) Ur Tricyclics Screen Negative (NEGATIVE) Ur Phencyclidine Scrn Negative (NEGATIVE) Ur Amphetamine Screen Negative (NEGATIVE) U Methamphetamines Scrn Negative (NEGATIVE) Urine MDMA Screen Negative (NEGATIVE) U Benzodiazepines Scrn Negative (NEGATIVE) U Cocaine Metab Screen Negative (NEGATIVE) U Marijuana (THC) Screen Negative (NEGATIVE) Ethyl Alcohol mg/dL Meds: Medications Discontinued Medications Generic Name Dose Route Start Last Admin Trade Name Freq PRN Reason Stop Dose Admin Levetiracetam 1,000 mg/ Sodium 110 mls @ 400 mls/hr 06/29/20 04:07 06/29/20 04:18 Chloride IV 06/29/20 04:21 400 mls/hr ONETIME ONE Administration Lorazepam 1 mg 06/29/20 04:07 06/29/20 04:17 Ativan IVPUSH 06/29/20 04:08 1 mg ONETIME ONE Administration Departure - Departure Time of Disposition: 04:47 Disposition: Home, Self-Care 01 Condition: Poor Clinical Impression: Psychogenic nonepileptic seizure - Discharge Information Instructions: Non-Epileptic Seizures, Adult Referrals: Baljeet Lucio MD [Primary Care Provider] - Forms: ED Department Discharge Additional Instructions: Continue with your regular medications, keep your follow-up appointment with psychiatry and primary care Sepsis Event Note (ED) - Evaluation Sepsis Screening Result: No Definite Risk - Focused Exam Vital Signs: Vital Signs Temp Pulse Resp BP Pulse Ox 06/29/20 03:47 98.8 F 93 20 122/94 H 99 06/29/20 03:45 98.8 F 93 20 122/94 H 99 - Assessment/Plan Plan: Assessment Acuity = acute Site and laterality = nonepileptic seizures Etiology = unknown Manifestations = none Location of injury = Home Lab values = CBC, CMP unremarkable urine drug screen positive for opiates alcohol is a 291 Plan Good relief with Ativan was given 1000 mg Keppra loading dose, recommend continue with current medications keep follow-up appointment with psychiatry This note was dictated using [employer] voice recognition software please call with any questions on syntax or grammar.
== END 2020-06-29 04:57 | disposition home or self-care (01) ==
LOC: JP.ED 03:40
DX: G40.89 Other seizures (principal); I10 Essential (primary) hypertension; I25.10 Atherosclerotic heart disease of native coronary artery without angina pectoris; I25.2 Old myocardial infarction; F41.9 Anxiety disorder, unspecified; F32.9 Major depressive disorder, single episode, unspecified; E11.9 Type 2 diabetes mellitus without complications; Z88.0 Allergy status to penicillin; Z88.1 Allergy status to other antibiotic agents; Z79.899 Other long term (current) drug therapy
CPT/HCPCS: 36415; 80053; 80305; 80307; 85025; 96365; 96375; 99285; J1953; J2060

== ENCOUNTER 2020-06-29 11:03 | Emergency (ER) | payer OTHER ==
[2020-06-29 11:15] VITALS: BP 141/97; PULSE 77
--- NOTE | 2020-06-29 11:16 | EDM.PDOC ---
ED HPI GENERAL MEDICAL PROBLEM - General Chief Complaint: Chest Pain Stated Complaint: CHEST PAIN Time Seen by Provider: 06/29/20 11:05 Source of Information: Reports: Patient History Limitations: Reports: No Limitations - History of Present Illness INITIAL COMMENTS - FREE TEXT/NARRATIVE: 49-year-old male who was just in the emergency room 7 hours ago, says he woke up with chest pain at 4 AM. He was in the emergency room at 4 AM. He looks shaky and uncomfortable but his blood alcohol was almost 0.3 7 hours ago. He said he took 2 nitro this morning and it seemed to help, he had a "heart attack" 3 years ago. Onset: Unknown/Unsure (Symptoms of been present for at least 6 to 8 hours) Location: Reports: Chest Associated Symptoms: Reports: Nausea/Vomiting, Other (Tremor, shaky) Chest Pain Score (Numeric/FACES): 7 - Related Data Allergies Allergy/AdvReac Type Severity Reaction Status Date / Time Penicillins Allergy Hives Verified 06/29/20 11:14 erythromycin base AdvReac Nausea Verified 06/29/20 11:14 Home Meds: Home Meds Metoprolol Succinate [Toprol XL] 12.5 mg PO DAILY 05/31/20 [History] Potassium Chloride [Klor-Con M20] 20 meq PO BID #60 tab.er 06/11/20 [Rx] QUEtiapine [SEROquel] 150 mg PO BEDTIME #45 tablet 06/11/20 [Rx] Topiramate [Topamax] 50 mg PO BID #120 tablet 06/11/20 [Rx] fluvoxaMINE [Luvox] 100 mg PO BEDTIME #30 tablet 06/11/20 [Rx] levETIRAcetam [Keppra] 1,000 mg PO TID 06/16/20 [History] Lactalose 30 mg PO BID 06/21/20 [History] Past Medical History HEENT History: Reports: Impaired Vision Cardiovascular History: Reports: Arrhythmia, CAD, Hypertension, [place], Other (See Below) Other Cardiovascular History: svt Respiratory History: Reports: Bronchitis, Recurrent Gastrointestinal History: Reports: Diverticulosis, Pancreatitis Genitourinary History: Reports: Prostate Disorder, Renal Calculus Musculoskeletal History: Reports: Fracture Other Musculoskeletal History: dislocated shoulder Neurological History: Reports: Brain Injury, Concussion, Seizure (Nonepileptic type seizures) Other Neuro History: subderal hematoma Psychiatric History: Reports: Addiction, Anxiety, Depression, Panic Attack, Psych Hospitalization(s), PTSD, Suicide Attempt Other Psychiatric History: Major depressive disorder. ETOH Endocrine/Metabolic History: Reports: Diabetes, Type II, Other (See Below) Other Endocrine/Metabolic History: type II diabetes history Hematologic History: Reports: B12 Deficiency, Folic Acid Immunologic History: Reports: Other (See Below) Other Immunologic History: anaplasmosis, lyme disease Dermatologic History: Reports: Eczema - Infectious Disease History Infectious Disease History: Reports: Chicken Pox - Past Surgical History HEENT Surgical History: Reports: None GI Surgical History: Reports: Bariatric Procedure, Cholecystectomy, Colonoscopy Musculoskeletal Surgical History: Reports: Arthroscopic Knee Social & Family History - Family History Family Medical History: No Pertinent Family History - Caffeine Use Caffeine Use: Reports: Coffee - Living Situation & Occupation Living situation: Reports: with Significant Other (reports is getting divorce from in [place], living with his son.) Occupation: Employed ED ROS GENERAL - Review of Systems Review Of Systems: See Below Constitutional: Reports: Malaise, Decreased Appetite. Denies: Fever, Chills HEENT: Reports: Other (Photophobic) Respiratory: Denies: Shortness of Breath Cardiovascular: Reports: Chest Pain, Palpitations GI/Abdominal: Reports: Nausea, Vomiting Skin: Reports: Bruising (Seems to bruise easily) Neurological: Reports: Headache (Intermittent headaches and pseudoseizures) Psychiatric: Reports: Anxiety ED EXAM, GENERAL - Physical Exam Exam: See Below Exam Limited By: No Limitations General Appearance: Alert, Anxious Respiratory/Chest: No Respiratory Distress, Lungs Clear Cardiovascular: Regular Rate, Rhythm, Tachycardia GI/Abdominal: Soft, Non-Tender Neurological: Alert, Oriented Psychiatric: Anxious Skin Exam: Warm, Dry #1 Interpretation EKG Date: 06/29/20 Rhythm: NSR Rate (Beats/Min): 116 EKG Interpretation Comments: Other than tachycardia, QRS looks consistent with EKG 1 month ago, including ST segments Course - Vital Signs Last Recorded V/S: Last Vital Signs Temp 99.6 F 06/29/20 11:07 Pulse 77 06/29/20 11:07 Resp 19 06/29/20 11:07 BP 141/97 H 06/29/20 11:07 Pulse Ox 97 06/29/20 11:07 - Orders/Labs/Meds Orders: Active Orders 24 hr Category Date Time Status EKG 12 Lead [EK] Routine Ther 06/29/20 11:14 Ordered Labs: Laboratory Tests 06/29/20 Range/Units 11:26 Troponin I < 0.017 (0.000-0.056) ng/mL - Re-Assessments/Exams Free Text/Narrative Re-Assessment/Exam: 06/29/20 11:46 EKG was reassuring, troponin was drawn 06/29/20 11:51 Troponin is negative as well, patient will be discharged and encouraged to avoid any further alcohol intake Departure - Departure Time of Disposition: 12:08 Disposition: Home, Self-Care 01 Clinical Impression: Anxiety about health, Atypical chest pain - Discharge Information Instructions: Nonspecific Chest Pain, Adult, [id number] Referrals: PCP,None [Primary Care Provider] - Forms: ED Department Discharge Care Plan Goals: Continue your current medications, avoid any further alcohol intake and a daily antacid such as omeprazole would be helpful if not already taking. Sepsis Event Note (ED) - Evaluation Sepsis Screening Result: No Definite Risk - Focused Exam Vital Signs: Vital Signs Temp Pulse Resp BP Pulse Ox 06/29/20 11:07 99.6 F 77 19 141/97 H 97 - My Orders Last 24 Hours: My Active Orders 06/29/20 11:14 EKG 12 Lead [EK] Routine - Assessment/Plan Last 24 Hours: My Active Orders 06/29/20 11:14 EKG 12 Lead [EK] Routine
== END 2020-06-29 12:08 | disposition home or self-care (01) ==
LOC: JP.ED 11:03
DX: F41.9 Anxiety disorder, unspecified (principal); I10 Essential (primary) hypertension; I25.10 Atherosclerotic heart disease of native coronary artery without angina pectoris; I25.2 Old myocardial infarction; F32.9 Major depressive disorder, single episode, unspecified; E11.9 Type 2 diabetes mellitus without complications; R56.9 Unspecified convulsions; Z88.0 Allergy status to penicillin; Z88.1 Allergy status to other antibiotic agents; Z90.49 Acquired absence of other specified parts of digestive tract; Z79.899 Other long term (current) drug therapy
CPT/HCPCS: 36415; 84484; 93005; 93010; 99285-25

== ENCOUNTER 2020-07-23 16:49 | Emergency (ER) | payer OTHER, SELFPAY ==
[2020-07-23] MEDS ORDERED: Thiamine 100 MG Tab PO ONE (16:58)
--- NOTE | 2020-07-23 17:04 | EDM.PDOC ---
ED HPI GENERAL MEDICAL PROBLEM - General Chief Complaint: Neurological Problem Stated Complaint: MEDICAL VIA [place] Time Seen by Provider: 07/23/20 16:50 Source of Information: Reports: Patient, EMS, Old Records History Limitations: Reports: Intoxication - History of Present Illness INITIAL COMMENTS - FREE TEXT/NARRATIVE: 49 yo male with a pHx of alcohol abuse and pseudoseizures presents from his home in [facility] due to recurrent seizures today. Versed was given en route by EMS with resolution of these. Has been drinking today. Lives with an adult son and his own mother. 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 He has been having CRENSHAW's often since that he usually tx's with ibuprofen. He has been told by the neurosurgeon that they want to see him again about these CRENSHAW's. Has gone about 23 days without ETOH per his mother and did well during that interval. His last pseudoseizure was about the last time he drank. His mother says he has more of these spells when he is stressed. Onset: Today, Sudden Onset Date: 07/23/20 Duration: Minutes:, Intermittent Location: Reports: Generalized Quality: Reports: Ache (headache) Severity: Moderate Improves with: Reports: Medication (ibuprofen) Worsens with: Reports: Other (unknown) Context: Reports: Other (See HPI) Associated Symptoms: Reports: Headaches, Seizure. Denies: Fever/Chills Treatments ENDOCRINOLOGY SPECIALIST: Reports: Other (see below) (Versed per EMS) shoulder Pain Score (Numeric/FACES): 5 - Related Data Allergies Allergy/AdvReac Type Severity Reaction Status Date / Time Penicillins Allergy Hives Verified 07/23/20 17:00 erythromycin base AdvReac Nausea Verified 07/23/20 17:00 Home Meds: Home Meds Metoprolol Succinate [Toprol XL] 12.5 mg PO DAILY 05/31/20 [History] Potassium Chloride [Klor-Con M20] 20 meq PO BID #60 tab.er 06/11/20 [Rx] QUEtiapine [SEROquel] 150 mg PO BEDTIME #45 tablet 06/11/20 [Rx] Topiramate [Topamax] 50 mg PO BID #120 tablet 06/11/20 [Rx] fluvoxaMINE [Luvox] 100 mg PO BEDTIME #30 tablet 06/11/20 [Rx] levETIRAcetam [Keppra] 1,000 mg PO TID 06/16/20 [History] Lactalose 30 mg PO BID 06/21/20 [History] Past Medical History HEENT History: Reports: Impaired Vision Cardiovascular History: Reports: Arrhythmia, CAD, Hypertension, [place], Other (See Below) Other Cardiovascular History: svt Respiratory History: Reports: Bronchitis, Recurrent Gastrointestinal History: Reports: Diverticulosis, Pancreatitis Genitourinary History: Reports: Prostate Disorder, Renal Calculus Musculoskeletal History: Reports: Fracture Other Musculoskeletal History: dislocated shoulder Neurological History: Reports: Brain Injury, Concussion, Seizure (Nonepileptic type seizures) Other Neuro History: subderal hematoma Psychiatric History: Reports: Addiction, Anxiety, Depression, Panic Attack, Psych Hospitalization(s), PTSD, Suicide Attempt Other Psychiatric History: Major depressive disorder. ETOH Endocrine/Metabolic History: Reports: Diabetes, Type II, Other (See Below) Other Endocrine/Metabolic History: type II diabetes history Hematologic History: Reports: B12 Deficiency, Folic Acid Immunologic History: Reports: Other (See Below) Other Immunologic History: anaplasmosis, lyme disease Dermatologic History: Reports: Eczema - Infectious Disease History Infectious Disease History: Reports: Chicken Pox - Past Surgical History HEENT Surgical History: Reports: None GI Surgical History: Reports: Bariatric Procedure, Cholecystectomy, Colonoscopy Musculoskeletal Surgical History: Reports: Arthroscopic Knee Social & Family History - Family History Family Medical History: No Pertinent Family History - Caffeine Use Caffeine Use: Reports: Coffee - Living Situation & Occupation Living situation: Reports: with Significant Other (reports is getting divorce from in [place], living with his son.) Occupation: Employed ED ROS GENERAL - Review of Systems Review Of Systems: See Below Constitutional: Reports: No Symptoms HEENT: Reports: No Symptoms Respiratory: Reports: No Symptoms Cardiovascular: Reports: No Symptoms GI/Abdominal: Reports: No Symptoms : Reports: No Symptoms Musculoskeletal: Reports: No Symptoms Skin: Reports: No Symptoms Neurological: Reports: Headache (frequent), Seizure - Physical Exam Exam: See Below Exam Limited By: No Limitations General Appearance: Alert, WD/WN, No Apparent Distress, Other (intermittently tenses up and won't respond at these times.) Eye Exam: Right Eye: Proptosis, Vision Changes, Other, Bilateral Eye: Normal Inspection Ears: Normal External Exam, Normal Canal, Hearing Grossly Normal, Normal TMs Nose: Normal Inspection, No Blood Throat/Mouth: Normal Inspection, Normal Lips, Normal Oropharynx, Normal Voice, No Airway Compromise Head Exam: Atraumatic, Other (scars on his scalp from prior surgery/injuries). No: Scalp Abrasions, Scalp Ecchymosis, Scalp Hematoma, Scalp Tenderness, Facial Abrasions, Facial Ecchymosis, Facial Lacerations, Facial Swelling, Facial Tenderness Neck: Normal Inspection Respiratory/Chest: No Respiratory Distress, Lungs Clear, Normal Breath Sounds, No Accessory Muscle Use Cardiovascular: Regular Rate, Rhythm, No Edema GI/Abdominal: Normal Bowel Sounds, Soft, Non-Tender, No Distention Neuro Exam (Abbreviated): Alert, Oriented, CN II-XII Intact, Normal Cognition, No Motor/Sensory Deficits Extremities: Normal Inspection, Normal Range of Motion, Non-Tender, No Pedal Edema Psychiatric: Normal Affect, Normal Mood Skin Exam: Warm, Dry, Intact, Normal Color, No Rash Course - Vital Signs Last Recorded V/S: Last Vital Signs Temp 37.2 C 07/23/20 17:03 Pulse 122 H 07/23/20 17:50 Resp 15 07/23/20 17:03 BP 125/88 07/23/20 17:50 Pulse Ox 97 07/23/20 17:03 - Orders/Labs/Meds Orders: Active Orders 24 hr Category Date Time Status Lactated Ringers [Ringers, Lactated] 1,000 ml Med 07/23/20 17:40 Active IV BOLUS Medication Orders Lactated Ringer's (Ringers, Lactated) 1,000 mls @ 1,000 mls/hr IV BOLUS ONE Stop: 07/23/20 18:39 Last Admin: 07/23/20 17:49 Dose: 1,000 mls/hr Documented by: [id number] Labs: Laboratory Tests 07/23/20 07/23/20 07/23/20 Range/Units 16:57 17:15 17:23 WBC 9.5 (4.5-11.0) K/uL RBC 5.56 (4.30-5.90) M/uL Hgb 16.0 H (12.0-15.0) g/dL Hct 47.9 (40.0-54.0) % MCV 86 (80-98) fL MCH 29 (27-31) pg MCHC 33 (32-36) % Plt Count 403 H (150-400) K/uL Sodium 150 H (140-148) mmol/L Potassium 3.9 (3.6-5.2) mmol/L Chloride 111 H (100-108) mmol/L Carbon Dioxide 24 (21-32) mmol/L Anion Gap 18.9 H (5.0-14.0) mmol/L BUN 10 (7-18) mg/dL Creatinine 0.8 (0.8-1.3) mg/dL Est Cr Clr Drug Dosing 103.01 mL/min Estimated GFR (MDRD) > 60 (>60) Glucose 112 H (74-106) mg/dL Calcium 8.1 L (8.5-10.1) mg/dL Total Bilirubin 0.3 (0.2-1.0) mg/dL AST 36 (15-37) U/L ALT 35 (12-78) U/L Alkaline Phosphatase 147 H (46-116) U/L Total Protein 6.4 (6.4-8.2) g/dL Albumin 3.6 (3.4-5.0) g/dL Globulin 2.8 (2.3-3.5) g/dL Albumin/Globulin Ratio 1.3 (1.2-2.2) Urine Opiates Screen Negative (NEGATIVE) Ur Oxycodone Screen Negative (NEGATIVE) Urine Methadone Screen Negative (NEGATIVE) Ur Propoxyphene Screen Negative (NEGATIVE) Ur Barbiturates Screen Negative (NEGATIVE) Ur Tricyclics Screen Negative (NEGATIVE) Ur Phencyclidine Scrn Negative (NEGATIVE) Ur Amphetamine Screen Negative (NEGATIVE) U Methamphetamines Scrn Negative (NEGATIVE) Urine MDMA Screen Negative (NEGATIVE) U Benzodiazepines Scrn Negative (NEGATIVE) U Cocaine Metab Screen Negative (NEGATIVE) U Marijuana (THC) Screen Negative (NEGATIVE) Ethyl Alcohol mg/dL 07/23/20 Range/Units 17:23 WBC (4.5-11.0) K/uL RBC (4.30-5.90) M/uL Hgb (12.0-15.0) g/dL Hct (40.0-54.0) % MCV (80-98) fL MCH (27-31) pg MCHC (32-36) % Plt Count (150-400) K/uL Sodium (140-148) mmol/L Potassium (3.6-5.2) mmol/L Chloride (100-108) mmol/L Carbon Dioxide (21-32) mmol/L Anion Gap (5.0-14.0) mmol/L BUN (7-18) mg/dL Creatinine (0.8-1.3) mg/dL Est Cr Clr Drug Dosing mL/min Estimated GFR (MDRD) (>60) Glucose (74-106) mg/dL Calcium (8.5-10.1) mg/dL Total Bilirubin (0.2-1.0) mg/dL AST (15-37) U/L ALT (12-78) U/L Alkaline Phosphatase (46-116) U/L Total Protein (6.4-8.2) g/dL Albumin (3.4-5.0) g/dL Globulin (2.3-3.5) g/dL Albumin/Globulin Ratio (1.2-2.2) Urine Opiates Screen (NEGATIVE) Ur Oxycodone Screen (NEGATIVE) Urine Methadone Screen (NEGATIVE) Ur Propoxyphene Screen (NEGATIVE) Ur Barbiturates Screen (NEGATIVE) Ur Tricyclics Screen (NEGATIVE) Ur Phencyclidine Scrn (NEGATIVE) Ur Amphetamine Screen (NEGATIVE) U Methamphetamines Scrn (NEGATIVE) Urine MDMA Screen (NEGATIVE) U Benzodiazepines Scrn (NEGATIVE) U Cocaine Metab Screen (NEGATIVE) U Marijuana (THC) Screen (NEGATIVE) Ethyl Alcohol 301 mg/dL Meds: Medications Generic Name Dose Route Start Last Admin Trade Name Freq PRN Reason Stop Dose Admin Lactated Ringer's 1,000 mls @ 1,000 mls/hr 07/23/20 17:40 07/23/20 17:49 Ringers, Lactated IV 07/23/20 18:39 1,000 mls/hr BOLUS ONE Administration Discontinued Medications Generic Name Dose Route Start Last Admin Trade Name Freq PRN Reason Stop Dose Admin Diphenhydramine HCl 50 mg 07/23/20 17:39 07/23/20 17:48 Benadryl IVPUSH 07/23/20 17:40 50 mg ONETIME ONE Administration Prochlorperazine Edisylate 10 mg 07/23/20 17:39 07/23/20 17:48 Compazine IVPUSH 12/10/20 17:40 10 mg ONETIME ONE Administration Thiamine HCl 100 mg 07/23/20 16:58 07/23/20 17:19 Vitamin B-1 PO 07/23/20 16:59 100 mg ONETIME ONE Administration - Re-Assessments/Exams Free Text/Narrative Re-Assessment/Exam: 07/23/20 18:30 Feeling better after IV Benedryl and compazine. His mother will take him home. Doesn't want to go to [place]. Departure - Departure Time of Disposition: 19:00 Disposition: Home, Self-Care 01 Condition: Fair Clinical Impression: Pseudoseizure Alcohol intoxication Qualifiers: Complication of substance-induced condition: with unspecified complication Qualified Code(s): F10.929 - Alcohol use, unspecified with intoxication, unspecified Chronic headaches Qualifiers: Headache type: unspecified Intractability: not intractable Qualified Code(s): R51.9 - Headache, unspecified; G89.29 - Other chronic pain - Discharge Information *PRESCRIPTION DRUG MONITORING PROGRAM REVIEWED*: Not Applicable *COPY OF PRESCRIPTION DRUG MONITORING REPORT IN PATIENT LIZA: Not Applicable Referrals: PCP,None [Primary Care Provider] - Forms: ED Department Discharge Additional Instructions: Continue your current medications. Try Excedrin Migraine for your CRENSHAW's if you have not already, follow the instructions on the label. See your neurosurgeon for your ongoing CRENSHAW's. Try to avoid alcohol. Return as needed. No driving or using dangerous equipment tonight. Sepsis Event Note (ED) - Focused Exam Vital Signs: Vital Signs Temp Pulse Resp BP BP Pulse Ox 07/23/20 17:50 122 H 125/88 07/23/20 17:03 37.2 C 117 H 15 143/94 H 97 07/23/20 16:50 37.2 C 117 H 15 143/94 H 97 - My Orders Last 24 Hours: My Active Orders 07/23/20 17:40 Lactated Ringers [Ringers, Lactated] 1,000 ml IV BOLUS - Assessment/Plan Last 24 Hours: My Active Orders 07/23/20 17:40 Lactated Ringers [Ringers, Lactated] 1,000 ml IV BOLUS
[2020-07-23] MEDS ORDERED: Prochlorperazine 10 MG/2 ML SDV IVPUSH ONE (17:39)
[2020-07-23] MEDS ORDERED: diphenhydrAMINE 50 MG/ML SDV IVPUSH ONE (17:39)
[2020-07-23] MEDS ORDERED: Lactated Ringers 1,000 ML IV ONE (17:40)
[2020-07-23 18:30] VITALS: BP 125/92; PULSE 111
== END 2020-07-23 18:48 | disposition home or self-care (01) ==
LOC: JP.ED 16:49
DX: F44.5 Conversion disorder with seizures or convulsions (principal); R51.9 Headache, unspecified; F10.129 Alcohol abuse with intoxication, unspecified; I25.10 Atherosclerotic heart disease of native coronary artery without angina pectoris; I10 Essential (primary) hypertension; I25.2 Old myocardial infarction; F41.9 Anxiety disorder, unspecified; F32.9 Major depressive disorder, single episode, unspecified; E11.9 Type 2 diabetes mellitus without complications; Y90.8 Blood alcohol level of 240 mg/100 ml or more; Z88.0 Allergy status to penicillin; Z88.1 Allergy status to other antibiotic agents; Z79.899 Other long term (current) drug therapy
CPT/HCPCS: 36415; 80053; 80305; 80307; 85027; 96374; 96375; 99284; A9270; J0780; J1200; J7120

== ENCOUNTER 2020-07-26 22:20 | Emergency (ER) | payer OTHER ==
--- NOTE | 2020-07-26 22:34 | EDM.PDOCBH ---
ED HPI GENERAL MEDICAL PROBLEM - General Chief Complaint: Drug or Alcohol Abuse Stated Complaint: SEIZURE VIA [facility] Time Seen by Provider: 07/26/20 22:20 Source of Information: Reports: Patient, EMS, Family History Limitations: Reports: Intoxication - History of Present Illness INITIAL COMMENTS - FREE TEXT/NARRATIVE: 49-year-old male brought in by ambulance because of "seizures". He has been drinking, claims he has been taking his medicine but is having seizures today. When I asked him why he was here, he said "I do not know my mom called the ambulance". However when I talked to his mother she said that he called her and said please call the ambulance I need help. This again appears to be just behavioral. He had 2 or 3 seizures in route per EMS, but they only lasted a few seconds and then he was right back to his baseline intoxicated status. It is not true seizure activity. Onset: Unknown/Unsure Associated Symptoms: Reports: Confusion, Malaise. Denies: Chest Pain, Fever/Chills, Headaches, Shortness of Breath - Related Data Allergies Allergy/AdvReac Type Severity Reaction Status Date / Time Penicillins Allergy Hives Verified 07/26/20 22:31 erythromycin base AdvReac Nausea Verified 07/26/20 22:31 Home Meds: Home Meds Metoprolol Succinate [Toprol XL] 12.5 mg PO DAILY 05/31/20 [History] Potassium Chloride [Klor-Con M20] 20 meq PO BID #60 tab.er 06/11/20 [Rx] QUEtiapine [SEROquel] 150 mg PO BEDTIME #45 tablet 06/11/20 [Rx] Topiramate [Topamax] 50 mg PO BID #120 tablet 06/11/20 [Rx] fluvoxaMINE [Luvox] 100 mg PO BEDTIME #30 tablet 06/11/20 [Rx] levETIRAcetam [Keppra] 1,000 mg PO TID 06/16/20 [History] Lactalose 30 mg PO BID 06/21/20 [History] Past Medical History HEENT History: Reports: Impaired Vision Cardiovascular History: Reports: Arrhythmia, CAD, Hypertension, [place], Other (See Below) Other Cardiovascular History: svt Respiratory History: Reports: Bronchitis, Recurrent Gastrointestinal History: Reports: Diverticulosis, Pancreatitis Genitourinary History: Reports: Prostate Disorder, Renal Calculus Musculoskeletal History: Reports: Fracture Other Musculoskeletal History: dislocated shoulder Neurological History: Reports: Brain Injury, Concussion, Seizure Other Neuro History: subderal hematoma Psychiatric History: Reports: Addiction, Anxiety, Depression, Panic Attack, Psych Hospitalization(s), PTSD, Suicide Attempt Other Psychiatric History: Major depressive disorder. ETOH Endocrine/Metabolic History: Reports: Diabetes, Type II, Other (See Below) Other Endocrine/Metabolic History: type II diabetes history Hematologic History: Reports: B12 Deficiency, Folic Acid Immunologic History: Reports: Other (See Below) Other Immunologic History: anaplasmosis, lyme disease Dermatologic History: Reports: Eczema - Infectious Disease History Infectious Disease History: Reports: Chicken Pox - Past Surgical History HEENT Surgical History: Reports: None GI Surgical History: Reports: Bariatric Procedure, Cholecystectomy, Colonoscopy Musculoskeletal Surgical History: Reports: Arthroscopic Knee Social & Family History - Family History Family Medical History: No Pertinent Family History - Caffeine Use Caffeine Use: Reports: Coffee - Living Situation & Occupation Living situation: Reports: with Significant Other (reports is getting divorce from in [place], living with his son.) Occupation: Employed ED ROS GENERAL - Review of Systems Review Of Systems: See Below Constitutional: Denies: Fever, Chills HEENT: Denies: Vision Change Respiratory: Denies: Shortness of Breath GI/Abdominal: Denies: Abdominal Pain Skin: Reports: Bruising (Bruises easily) Neurological: Denies: Headache Psychiatric: Reports: Depression ED EXAM, BEHAVIORAL HEALTH - Physical Exam Exam: See Below Exam Limited By: No Limitations General Appearance: Alert, No Apparent Distress Eye Exam: Bilateral Eye: Normal Inspection Head: Atraumatic Respiratory/Chest: No Respiratory Distress Neurological: Alert, Normal Mood/Affect, No Motor/Sensory Deficits, Oriented x 3 Psychiatric: Other (Intoxicated) COURSE, BEHAVIORAL HEALTH COMP - Course Vital Signs: Last Vital Signs Temp 96.8 F L 07/26/20 22:40 Pulse 136 H 07/26/20 22:40 Resp 14 07/26/20 22:40 BP 143/96 H 07/26/20 22:40 Pulse Ox 98 07/26/20 22:40 Orders, Labs, Meds: Laboratory Tests 07/26/20 07/26/20 07/26/20 Range/Units 22:40 22:40 22:40 WBC 12.8 H (4.5-11.0) K/uL RBC 5.34 (4.30-5.90) M/uL Hgb 15.1 H (12.0-15.0) g/dL Hct 45.6 (40.0-54.0) % MCV 85 (80-98) fL MCH 28 (27-31) pg MCHC 33 (32-36) % Plt Count 338 (150-400) K/uL Neut % (Auto) 65 (36-66) % Lymph % (Auto) 29 (24-44) % [place] % (Auto) 5 (2-6) % Eos % (Auto) 2 (2-4) % Baso % (Auto) 1 (0-1) % Sodium 146 (140-148) mmol/L Potassium 3.5 L (3.6-5.2) mmol/L Chloride 107 (100-108) mmol/L Carbon Dioxide 23 (21-32) mmol/L Anion Gap 19.5 H (5.0-14.0) mmol/L BUN 9 (7-18) mg/dL Creatinine 0.8 (0.8-1.3) mg/dL Est Cr Clr Drug Dosing 103.01 mL/min Estimated GFR (MDRD) > 60 (>60) Glucose 129 H (74-106) mg/dL Calcium 7.6 L (8.5-10.1) mg/dL Ethyl Alcohol 360 mg/dL Medications Discontinued Medications Generic Name Dose Route Start Last Admin Trade Name Freq PRN Reason Stop Dose Admin Ibuprofen 600 mg 07/26/20 23:15 07/26/20 23:24 Motrin PO 07/26/20 23:16 600 mg ONETIME ONE Administration Re-Assessment/Re-Exam: CBC, BMP and EtOH were obtained. No medications given. Labs were generally normal, white count mildly elevated at 15,000. EtOH was 0.360. When I told the patient he was medically discharged he developed a severe headache which I think is also behavioral. He was given 600 mg of ibuprofen and discharged. Departure - Departure Time of Disposition: 23:24 Disposition: Home, Self-Care 01 Clinical Impression: Alcohol abuse Alcohol intoxication Qualifiers: Complication of substance-induced condition: with unspecified complication Qualified Code(s): F10.929 - Alcohol use, unspecified with intoxication, unspecified Convulsion, non-epileptic Qualifiers: Convulsion type: unspecified Qualified Code(s): R56.9 - Unspecified convulsions - Discharge Information Instructions: Alcohol Use Disorder Referrals: PCP,None [Primary Care Provider] - Forms: ED Department Discharge Care Plan Goals: Continue current medications and avoid any further alcohol intake, keep your follow-up appointments as scheduled. Sepsis Event Note (ED) - Focused Exam Vital Signs: Vital Signs Temp Pulse Resp BP Pulse Ox 07/26/20 22:40 96.8 F L 136 H 14 143/96 H 98
[2020-07-26 22:41] VITALS: BP 143/96; PULSE 136
[2020-07-26] MEDS ORDERED: Ibuprofen 600 MG Tab PO ONE (23:15)
== END 2020-07-26 23:25 | disposition home or self-care (01) ==
LOC: JP.ED 22:20
DX: R56.9 Unspecified convulsions (principal); F10.129 Alcohol abuse with intoxication, unspecified; I25.10 Atherosclerotic heart disease of native coronary artery without angina pectoris; I10 Essential (primary) hypertension; I25.2 Old myocardial infarction; F41.9 Anxiety disorder, unspecified; F32.9 Major depressive disorder, single episode, unspecified; E11.9 Type 2 diabetes mellitus without complications; Z88.0 Allergy status to penicillin; Z88.1 Allergy status to other antibiotic agents; Z79.899 Other long term (current) drug therapy; Y90.8 Blood alcohol level of 240 mg/100 ml or more
CPT/HCPCS: 36415; 80048; 80307; 85025; 99284; A9270

== ENCOUNTER 2020-07-27 23:25 | Emergency (ER) | payer SELFPAY ==
[2020-07-27 23:34] VITALS: BP 124/91; PULSE 94
== END 2020-07-27 23:59 | disposition left against medical advice (07) ==
LOC: JP.ED 23:25
DX: Z53.21 Procedure and treatment not carried out due to patient leaving prior to being seen by health care provider (principal)

== ENCOUNTER 2020-08-01 22:12 | Emergency (ER) | payer OTHER ==
[2020-08-01 22:23] VITALS: BP 138/91; PULSE 130
[2020-08-01] MEDS ORDERED: Sodium Chloride 0.9% 10 ML Syringe FLUSH PRN (22:29)
--- NOTE | 2020-08-01 22:37 | EDM.PDOCBH ---
ED HPI GENERAL MEDICAL PROBLEM - General Chief Complaint: Drug or Alcohol Abuse Stated Complaint: SEIZURE Time Seen by Provider: 08/01/20 22:23 Source of Information: Reports: Patient, EMS History Limitations: Reports: No Limitations - History of Present Illness INITIAL COMMENTS - FREE TEXT/NARRATIVE: Patient presents by local EMS service after he was in a liquor store tonight and reportedly had a seizure. He states that he has not had any alcohol to drink today at all but yesterday, 31 July, he drank a lot. When he went to the liquor store, they refused to sell him alcohol based on his appearance and behavior. He has a history of multiple visits to this department for intoxication and questionable seizures. He was seen twice within the last week here and discharged. He states that he is taking all of his medications regularly. He thinks that he may have hit his head when he fell tonight and he has a couple of scrapes on the left side of his trunk from a fall several days ago. Onset: Today Duration: Hour(s): Location: Reports: Head Quality: Reports: Burning (Forehead area.) Severity: Mild Improves with: Reports: None Worsens with: Reports: None head Pain Score (Numeric/FACES): 8 - Related Data Allergies Allergy/AdvReac Type Severity Reaction Status Date / Time Penicillins Allergy Hives Verified 08/01/20 22:24 erythromycin base AdvReac Nausea Verified 08/01/20 22:24 Home Meds: Home Meds Metoprolol Succinate [Toprol XL] 12.5 mg PO DAILY 05/31/20 [History] Potassium Chloride [Klor-Con M20] 20 meq PO BID #60 tab.er 06/11/20 [Rx] QUEtiapine [SEROquel] 150 mg PO BEDTIME #45 tablet 06/11/20 [Rx] Topiramate [Topamax] 50 mg PO BID #120 tablet 06/11/20 [Rx] fluvoxaMINE [Luvox] 100 mg PO BEDTIME #30 tablet 06/11/20 [Rx] levETIRAcetam [Keppra] 1,000 mg PO TID 06/16/20 [History] Lactalose 30 mg PO BID 06/21/20 [History] Past Medical History HEENT History: Reports: Impaired Vision Cardiovascular History: Reports: Arrhythmia, CAD, Hypertension, [place], Other (See Below) Other Cardiovascular History: svt Respiratory History: Reports: Bronchitis, Recurrent Gastrointestinal History: Reports: Diverticulosis, Pancreatitis Genitourinary History: Reports: Prostate Disorder, Renal Calculus Musculoskeletal History: Reports: Fracture Other Musculoskeletal History: dislocated shoulder Neurological History: Reports: Brain Injury, Concussion, Seizure Other Neuro History: subderal hematoma Psychiatric History: Reports: Addiction, Anxiety, Depression, Panic Attack, Psych Hospitalization(s), PTSD, Suicide Attempt Other Psychiatric History: Major depressive disorder. ETOH Endocrine/Metabolic History: Reports: Diabetes, Type II, Other (See Below) Other Endocrine/Metabolic History: type II diabetes history Hematologic History: Reports: B12 Deficiency, Folic Acid Immunologic History: Reports: Other (See Below) Other Immunologic History: anaplasmosis, lyme disease Dermatologic History: Reports: Eczema - Infectious Disease History Infectious Disease History: Reports: Chicken Pox - Past Surgical History HEENT Surgical History: Reports: None GI Surgical History: Reports: Bariatric Procedure, Cholecystectomy, Colonoscopy Musculoskeletal Surgical History: Reports: Arthroscopic Knee Social & Family History - Family History Family Medical History: No Pertinent Family History - Tobacco Use Tobacco Use Status *Q: Former Tobacco User Used Tobacco, but Quit: Yes Month/Year Tobacco Last Used: 2004 - Caffeine Use Caffeine Use: Reports: Coffee - Alcohol Use Days Per Week of Alcohol Use: 7 Number of Drinks Per Day: 25 Total Drinks Per Week: 175 - Recreational Drug Use Recreational Drug Use: No - Living Situation & Occupation Living situation: Reports: with Significant Other (reports is getting divorce from in [place], living with his son.) Occupation: Employed ED ROS GENERAL - Review of Systems Review Of Systems: See Below Constitutional: Reports: No Symptoms HEENT: Reports: Other (Forehead pain.) Respiratory: Reports: No Symptoms Cardiovascular: Reports: No Symptoms GI/Abdominal: Reports: No Symptoms Musculoskeletal: Reports: Other (Left posterior lateral chest wall abrasions.) Neurological: Reports: Headache (Low-grade, he has a headache almost every day.). Denies: Dizziness ED EXAM, BEHAVIORAL HEALTH - Physical Exam Exam: See Below Text/Narrative:: Patient is able to answer questions with some delay and slurred speech. His historical recall is excellent. Exam Limited By: Intoxication General Appearance: Alert, No Apparent Distress Head: Other (2 small abrasions to the mid frontal scalp. No bleeding.) Neck: Supple Respiratory/Chest: No Respiratory Distress, Lungs Clear Cardiovascular: Regular Rate, Rhythm, Tachycardia GI/Abdominal: Soft, Non-Tender Skin Exam: Wound/incision (There are 2 linear abrasions along the left flank and posterior lateral back that have scabbed material over the surface. No bleeding.) COURSE, BEHAVIORAL HEALTH COMP - Course Vital Signs: Last Vital Signs Temp 36.7 C 08/01/20 22:21 Pulse 130 H 08/01/20 22:21 Resp 19 08/01/20 22:21 BP 138/91 H 08/01/20 22:21 Pulse Ox 97 08/01/20 22:21 Orders, Labs, Meds: Active Orders 24 hr Category Date Time Status Sodium Chloride 0.9% [Normal Saline] 1,000 ml Med 08/01/20 22:44 Ordered IV .BOLUS Sodium Chloride 0.9% [Saline Flush] Med 08/01/20 22:29 Ordered 10 ml FLUSH ASDIRECTED PRN Saline Lock Insert [OM.PC] Routine Oth 08/01/20 22:29 Ordered Medication Orders Sodium Chloride (Normal Saline) 1,000 mls @ 999 mls/hr IV .BOLUS ONE Stop: 08/01/20 23:44 Last Admin: 08/01/20 22:50 Dose: 999 mls/hr Documented by: OTIS Sodium Chloride (Saline Flush) 10 ml FLUSH ASDIRECTED PRN PRN Reason: Keep Vein Open Last Admin: 08/01/20 22:35 Dose: 10 ml Documented by: KESHA Laboratory Tests 08/01/20 08/01/20 08/01/20 Range/Units 22:30 22:30 22:30 WBC 10.6 (4.5-11.0) K/uL RBC 5.11 (4.30-5.90) M/uL Hgb 14.6 (12.0-15.0) g/dL Hct 42.5 (40.0-54.0) % MCV 83 (80-98) fL MCH 29 (27-31) pg MCHC 34 (32-36) % Plt Count 262 (150-400) K/uL Neut % (Auto) 68 H (36-66) % Lymph % (Auto) 24 (24-44) % Mcintosh % (Auto) 5 (2-6) % Eos % (Auto) 2 (2-4) % Baso % (Auto) 1 (0-1) % Sodium 147 (140-148) mmol/L Potassium 3.1 L (3.6-5.2) mmol/L Chloride 106 (100-108) mmol/L Carbon Dioxide 23 (21-32) mmol/L Anion Gap 21.1 H (5.0-14.0) mmol/L BUN 9 (7-18) mg/dL Creatinine 0.8 (0.8-1.3) mg/dL Est Cr Clr Drug Dosing 103.01 mL/min Estimated GFR (MDRD) > 60 (>60) Glucose 159 H (74-106) mg/dL Calcium 7.7 L (8.5-10.1) mg/dL Total Bilirubin 0.5 D (0.2-1.0) mg/dL AST 77 H D (15-37) U/L ALT 58 (12-78) U/L Alkaline Phosphatase 166 H (46-116) U/L Total Protein 6.1 L (6.4-8.2) g/dL Albumin 3.2 L (3.4-5.0) g/dL Globulin 2.9 (2.3-3.5) g/dL Albumin/Globulin Ratio 1.1 L (1.2-2.2) Ethyl Alcohol 412 mg/dL Medications Generic Name Dose Route Start Last Admin Trade Name Freq PRN Reason Stop Dose Admin Sodium Chloride 1,000 mls @ 999 mls/hr 08/01/20 22:44 08/01/20 22:50 Normal Saline IV 08/01/20 23:44 999 mls/hr .BOLUS ONE Administration Sodium Chloride 10 ml 08/01/20 22:29 08/01/20 22:35 Saline Flush FLUSH 10 ml ASDIRECTED PRN Administration Keep Vein Open Discontinued Medications Generic Name Dose Route Start Last Admin Trade Name Freq PRN Reason Stop Dose Admin Levetiracetam 1,000 mg/ Sodium 110 mls @ 400 mls/hr 08/01/20 23:05 Chloride IV 08/01/20 23:19 ONETIME ONE Levetiracetam 1,000 mg 08/01/20 23:09 Keppra PO 08/01/20 23:10 ONETIME ONE Re-Assessment/Re-Exam: He says his mouth is dry, very thirsty. It is fine if he drinks water. We will give him a liter of normal saline by rapid infusion. The patient drank several glasses of water uneventfully. His mother is here now. We reviewed his labs which do not look too bad other than an ethanol level of 0.41. He was given Keppra 1000 mg orally which he swallowed without incident. We discussed taking medications regularly and not drinking. He was discharged with his mother. 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 You know what alcohol can do to you and against you, we recommend do not drink anything. You received 1000 mg of Keppra while you were here so you would not need to take your end of the day dose tonight. Sepsis Event Note (ED) - Evaluation Sepsis Screening Result: No Definite Risk - Focused Exam Vital Signs: Vital Signs Temp Pulse Resp BP Pulse Ox 08/01/20 22:21 36.7 C 130 H 19 138/91 H 97 - My Orders Last 24 Hours: My Active Orders 08/01/20 22:29 Sodium Chloride 0.9% [Saline Flush] 10 ml FLUSH ASDIRECTED PRN Saline Lock Insert [OM.PC] Routine 08/01/20 22:44 Sodium Chloride 0.9% [Normal Saline] 1,000 ml IV .BOLUS - Assessment/Plan Last 24 Hours: My Active Orders 08/01/20 22:29 Sodium Chloride 0.9% [Saline Flush] 10 ml FLUSH ASDIRECTED PRN Saline Lock Insert [OM.PC] Routine 08/01/20 22:44 Sodium Chloride 0.9% [Normal Saline] 1,000 ml IV .BOLUS
[2020-08-01] MEDS ORDERED: Sodium Chloride 0.9% 1,000 ML IV ONE (22:44)
[2020-08-01] MEDS ORDERED: levETIRAcetam 1,000 MG in Sodium Chloride 0.9% 100 ML IV ONE (23:05)
[2020-08-01] MEDS ORDERED: levETIRAcetam 250 MG Tab PO ONE (23:09)
== END 2020-08-01 23:29 | disposition home or self-care (01) ==
LOC: JP.ED 22:12
DX: F60.81 Narcissistic personality disorder (principal); F10.120 Alcohol abuse with intoxication, uncomplicated; S30.811A Abrasion of abdominal wall, initial encounter; S30.810A Abrasion of lower back and pelvis, initial encounter; I10 Essential (primary) hypertension; I25.2 Old myocardial infarction; I25.10 Atherosclerotic heart disease of native coronary artery without angina pectoris; E11.9 Type 2 diabetes mellitus without complications; F41.9 Anxiety disorder, unspecified; F32.9 Major depressive disorder, single episode, unspecified; Z90.49 Acquired absence of other specified parts of digestive tract; Y90.8 Blood alcohol level of 240 mg/100 ml or more; Z88.0 Allergy status to penicillin; Z88.1 Allergy status to other antibiotic agents; Z79.899 Other long term (current) drug therapy; Z87.891 Personal history of nicotine dependence; W01.10XA Fall on same level from slipping, tripping and stumbling with subsequent striking against unspecified object, initial encounter
CPT/HCPCS: 36415; 80053; 80307; 85025; 96360; 99283; 99284-25; A9270-GY; J7030

== ENCOUNTER 2020-08-03 22:58 | Emergency (ER) | payer OTHER ==
[2020-08-03] MEDS ORDERED: Folic Acid 1 MG Tab PO ONE (23:23)
[2020-08-03] MEDS ORDERED: Thiamine 200 MG/2 ML MDV IM ONE (23:23)
[2020-08-03] MEDS ORDERED: Famotidine 20 MG Tab PO ONE (23:25)
[2020-08-03 23:26] VITALS: BP 142/105; PULSE 122
[2020-08-03] MEDS ORDERED: Multivitamins with Iron/Calcium/Folic Acid/Minerals Tab PO ONE (23:27)
--- NOTE | 2020-08-03 23:33 | EDM.PDOC ---
ED HPI GENERAL MEDICAL PROBLEM - General Chief Complaint: Drug or Alcohol Abuse Stated Complaint: MEDICAL VIA [facility] Time Seen by Provider: 08/03/20 23:15 Source of Information: Reports: Patient, EMS, Police, RN Notes Reviewed History Limitations: Reports: Intoxication - History of Present Illness INITIAL COMMENTS - FREE TEXT/NARRATIVE: patient presents to the ER today via EMS due to concern about cold exposure. he is a known alcoholic per FILE CLERK/Police/EMS crew all who know him from multiple incidents involving his alcohol use/abuse. Patient was found tonight by his n eighbor laying in the road in front of his house. EMS & local PD responded and found him arousable but significantly intoxicated. he states that he was returning from the liquor store but unsure what happen, he states he drinks on average 1/5 vodka daily and is not interested in quiting/going to detox at this time. He states he does not want to be here--that he attempted to refuse transport to ER but was declined due to being intoxicated. He states that his mother will come pick him up. he is alert/cooperative here in the ER Onset: Other (chronic drinking alcoholic by his report all day/every day at least 1/5 vodka) - Related Data Allergies Allergy/AdvReac Type Severity Reaction Status Date / Time Penicillins Allergy Hives Verified 08/03/20 23:07 erythromycin base AdvReac Nausea Verified 08/03/20 23:07 Home Meds: Home Meds Metoprolol Succinate [Toprol XL] 12.5 mg PO DAILY 05/31/20 [History] Potassium Chloride [Klor-Con M20] 20 meq PO BID #60 tab.er 06/11/20 [Rx] QUEtiapine [SEROquel] 150 mg PO BEDTIME #45 tablet 06/11/20 [Rx] Topiramate [Topamax] 50 mg PO BID #120 tablet 06/11/20 [Rx] fluvoxaMINE [Luvox] 100 mg PO BEDTIME #30 tablet 06/11/20 [Rx] levETIRAcetam [Keppra] 1,000 mg PO TID 06/16/20 [History] Lactalose 30 mg PO BID 06/21/20 [History] Past Medical History HEENT History: Reports: Impaired Vision Cardiovascular History: Reports: Arrhythmia, CAD, Hypertension, [place], Other (See Below) Other Cardiovascular History: svt Respiratory History: Reports: Bronchitis, Recurrent Gastrointestinal History: Reports: Diverticulosis, Pancreatitis Genitourinary History: Reports: Prostate Disorder, Renal Calculus Musculoskeletal History: Reports: Fracture Other Musculoskeletal History: dislocated shoulder Neurological History: Reports: Brain Injury, Concussion, Seizure Other Neuro History: subderal hematoma Psychiatric History: Reports: Addiction, Anxiety, Depression, Panic Attack, Psych Hospitalization(s), PTSD, Suicide Attempt Other Psychiatric History: Major depressive disorder. ETOH Endocrine/Metabolic History: Reports: Diabetes, Type II, Other (See Below) Other Endocrine/Metabolic History: type II diabetes history Hematologic History: Reports: B12 Deficiency, Folic Acid Immunologic History: Reports: Other (See Below) Other Immunologic History: anaplasmosis, lyme disease Dermatologic History: Reports: Eczema - Infectious Disease History Infectious Disease History: Reports: Chicken Pox - Past Surgical History HEENT Surgical History: Reports: None GI Surgical History: Reports: Bariatric Procedure, Cholecystectomy, Colonoscopy Musculoskeletal Surgical History: Reports: Arthroscopic Knee Social & Family History - Family History Family Medical History: No Pertinent Family History - Tobacco Use Tobacco Use Status *Q: Former Tobacco User Used Tobacco, but Quit: Yes Month/Year Tobacco Last Used: 2004 - Caffeine Use Caffeine Use: Reports: Coffee - Alcohol Use Date of Last Drink: 08/03/20 - Living Situation & Occupation Living situation: Reports: with Significant Other (reports is getting divorce from in [place], living with his son.) Occupation: Employed ED ROS GENERAL - Review of Systems Review Of Systems: Comprehensive ROS is negative, except as noted in HPI. Constitutional: Reports: No Symptoms, Other (intoxicated, chronic ) HEENT: Reports: No Symptoms Respiratory: Reports: No Symptoms Cardiovascular: Reports: No Symptoms Endocrine: Reports: No Symptoms GI/Abdominal: Reports: No Symptoms : Reports: No Symptoms Musculoskeletal: Reports: No Symptoms Skin: Reports: Other (has old forehead abrasion, scratch/abrasion tracy on left side back area also that are older in nature) Neurological: Reports: No Symptoms Psychiatric: Reports: No Symptoms Hematologic/Lymphatic: Reports: No Symptoms Immunologic: Reports: No Symptoms ED EXAM, GENERAL - Physical Exam Exam: See Below Exam Limited By: Intoxication General Appearance: Alert, No Apparent Distress Eye Exam: Bilateral Eye: Normal Inspection, PERRL Ears: Normal External Exam Nose: Normal Inspection Throat/Mouth: Normal Inspection, Normal Lips, Other (strong smell of EtOH on breath) Head: Atraumatic, Normocephalic Respiratory/Chest: No Respiratory Distress, Lungs Clear, Normal Breath Sounds, No Accessory Muscle Use, Chest Non-Tender Cardiovascular: Normal Peripheral Pulses, Regular Rate, Rhythm, No Edema, No Murmur Peripheral Pulses: 2+: Radial (L), Radial (R) GI/Abdominal: Normal Bowel Sounds, Soft, Non-Tender, No Distention. No: Tender (Male) Exam: Deferred Rectal (Males) Exam: Deferred Back Exam: Full Range of Motion, Other (able to sit self up in ER bed, has noted scratches/abrasions to left posterior back area) Extremities: Normal Range of Motion, No Pedal Edema, Normal Capillary Refill Neurological: Alert, Oriented Psychiatric: Normal Affect, Normal Mood Skin Exam: Warm, Dry, Intact, Normal Color, Wound/Incision (able to sit self up in ER bed, has noted scratches/abrasions to left posterior back area; old/mostly healed abrasion to forehead/hairline area) Course - Vital Signs Text/Narrative:: will provide oral/IM meds (folate, thiamine, MVI, pepcid) at this time, MSE complete & patient is alert with no SI/HI, patient is asking to go home, states he did not want to come to the ER & tried to sign off / refuse on scene but not allowed due to his alcohol use/abuse. He is not interested in alcohol rehab at this time. He states his mom will pick him up & take him home. mom called by FILE CLERK and she is on her way here to pick him up. he will be ready to d/c when she arrives and takes responsibility for him given his intoxicated state Last Recorded V/S: Last Vital Signs Temp 98.1 F 08/03/20 23:17 Pulse 122 H 08/03/20 23:17 Resp 20 08/03/20 23:17 BP 142/105 H 08/03/20 23:17 Pulse Ox 99 08/03/20 23:17 - Orders/Labs/Meds Orders: Active Orders 24 hr Category Date Time Status Famotidine [Pepcid] Med 08/03/20 23:25 Once 40 mg PO ONETIME ONE Folic Acid Med 08/03/20 23:23 Once 1 mg PO ONETIME ONE Multivitamins w-Iron/Ca/FA/Min [Thera M Plus] Med 08/03/20 23:27 Once 1 tab PO ONETIME ONE Thiamine [Vitamin B-1] Med 08/03/20 23:23 Once 100 mg IM ONETIME ONE Medication Orders Famotidine (Pepcid) 40 mg PO ONETIME ONE Stop: 08/03/20 23:26 Folic Acid (Folic Acid) 1 mg PO ONETIME ONE Stop: 08/03/20 23:24 Multivitamins/Minerals (Thera M Plus) 1 tab PO ONETIME ONE Stop: 08/03/20 23:28 Thiamine HCl (Vitamin B-1) 100 mg IM ONETIME ONE Stop: 08/03/20 23:24 Meds: Medications Generic Name Dose Route Start Last Admin Trade Name Freq PRN Reason Stop Dose Admin Famotidine 40 mg 08/03/20 23:25 Pepcid PO 08/03/20 23:26 ONETIME ONE Folic Acid 1 mg 08/03/20 23:23 Folic Acid PO 08/03/20 23:24 ONETIME ONE Multivitamins/Minerals 1 tab 08/03/20 23:27 Thera M Plus PO 08/03/20 23:28 ONETIME ONE Thiamine HCl 100 mg 08/03/20 23:23 Vitamin B-1 IM 08/03/20 23:24 ONETIME ONE Departure - Departure Time of Disposition: 23:40 Disposition: Home, Self-Care 01 Clinical Impression: Alcohol abuse, Hypertension - Discharge Information *PRESCRIPTION DRUG MONITORING PROGRAM REVIEWED*: Not Applicable *COPY OF PRESCRIPTION DRUG MONITORING REPORT IN PATIENT LIZA: Not Applicable Instructions: Alcohol Use Disorder, Alcohol Intoxication, [id number], Alcohol Abuse and Nutrition Referrals: PCP,None [Primary Care Provider] - Sepsis Event Note (ED) - Evaluation Sepsis Screening Result: No Definite Risk - Focused Exam Vital Signs: Vital Signs Temp Pulse Resp BP Pulse Ox 08/03/20 23:17 98.1 F 122 H 20 142/105 H 99 08/03/20 23:16 98.1 F 122 H 20 142/105 H 99 - My Orders Last 24 Hours: My Active Orders 08/03/20 23:23 Folic Acid 1 mg PO ONETIME ONE Thiamine [Vitamin B-1] 100 mg IM ONETIME ONE 08/03/20 23:25 Famotidine [Pepcid] 40 mg PO ONETIME ONE 08/03/20 23:27 Multivitamins w-Iron/Ca/FA/Min [Thera M Plus] 1 tab PO ONETIME ONE - Assessment/Plan Last 24 Hours: My Active Orders 08/03/20 23:23 Folic Acid 1 mg PO ONETIME ONE Thiamine [Vitamin B-1] 100 mg IM ONETIME ONE 08/03/20 23:25 Famotidine [Pepcid] 40 mg PO ONETIME ONE 08/03/20 23:27 Multivitamins w-Iron/Ca/FA/Min [Thera M Plus] 1 tab PO ONETIME ONE
== END 2020-08-03 23:57 | disposition home or self-care (01) ==
LOC: JP.ED 22:58
DX: F10.10 Alcohol abuse, uncomplicated (principal); I10 Essential (primary) hypertension; I25.10 Atherosclerotic heart disease of native coronary artery without angina pectoris; I25.2 Old myocardial infarction; F41.9 Anxiety disorder, unspecified; F32.9 Major depressive disorder, single episode, unspecified; E11.9 Type 2 diabetes mellitus without complications; Z87.891 Personal history of nicotine dependence; Z88.1 Allergy status to other antibiotic agents; Z88.0 Allergy status to penicillin; Z79.899 Other long term (current) drug therapy
CPT/HCPCS: 96372; 99284; A9270; J3411

== ENCOUNTER 2020-08-08 17:57 | Emergency (ER) | payer OTHER ==
[2020-08-08] MEDS ORDERED: Sodium Chloride 0.9% 10 ML Syringe FLUSH PRN (18:00)
[2020-08-08 18:41] VITALS: BP 146/93
[2020-08-08] MEDS ORDERED: Ondansetron 4 MG Tab.DIS PO ONE (18:41)
[2020-08-08] MEDS ORDERED: Ibuprofen 800 MG Tab PO ONE (18:41)
--- NOTE | 2020-08-08 18:43 | EDM.PDOC ---
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 He has chronic CRENSHAW's and he now has one that is at least as bad or worse than his normal CRENSHAW's. No neck pain. Has nausea and vomiting since the fall. Has a hx of brain surgery as well. 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 (see below) (none) - Related Data Allergies Allergy/AdvReac Type Severity Reaction Status Date / Time Penicillins Allergy Hives Verified 08/08/20 18:07 erythromycin base AdvReac Nausea Verified 08/08/20 18:07 Home Meds: Home Meds Metoprolol Succinate [Toprol XL] 12.5 mg PO DAILY 05/31/20 [History] Potassium Chloride [Klor-Con M20] 20 meq PO BID #60 tab.er 06/11/20 [Rx] QUEtiapine [SEROquel] 150 mg PO BEDTIME #45 tablet 06/11/20 [Rx] Topiramate [Topamax] 50 mg PO BID #120 tablet 06/11/20 [Rx] fluvoxaMINE [Luvox] 100 mg PO BEDTIME #30 tablet 06/11/20 [Rx] levETIRAcetam [Keppra] 1,000 mg PO TID 06/16/20 [History] Lactalose 30 mg PO BID 06/21/20 [History] Potassium Chloride 20 meq PO BID #7 tablet.er 08/08/20 [Rx] Past Medical History HEENT History: Reports: Impaired Vision Cardiovascular History: Reports: Arrhythmia, CAD, Hypertension, [place], Other (See Below) Other Cardiovascular History: svt Respiratory History: Reports: Bronchitis, Recurrent Gastrointestinal History: Reports: Diverticulosis, Pancreatitis Genitourinary History: Reports: Prostate Disorder, Renal Calculus Musculoskeletal History: Reports: Fracture Other Musculoskeletal History: dislocated shoulder Neurological History: Reports: Brain Injury, Concussion, Seizure Other Neuro History: subderal hematoma Psychiatric History: Reports: Addiction, Anxiety, Depression, Panic Attack, Psych Hospitalization(s), PTSD, Suicide Attempt Other Psychiatric History: Major depressive disorder. ETOH Endocrine/Metabolic History: Reports: Diabetes, Type II, Other (See Below) Other Endocrine/Metabolic History: type II diabetes history Hematologic History: Reports: B12 Deficiency, Folic Acid Immunologic History: Reports: Other (See Below) Other Immunologic History: anaplasmosis, lyme disease Dermatologic History: Reports: Eczema - Infectious Disease History Infectious Disease History: Reports: Chicken Pox - Past Surgical History HEENT Surgical History: Reports: None GI Surgical History: Reports: Bariatric Procedure, Cholecystectomy, Colonoscopy Musculoskeletal Surgical History: Reports: Arthroscopic Knee Social & Family History - Family History Family Medical History: No Pertinent Family History - Tobacco Use Tobacco Use Status *Q: Never Tobacco User - Caffeine Use Caffeine Use: Reports: Coffee - Living Situation & Occupation Living situation: Reports: with Significant Other (reports is getting divorce from in [place], living with his son.) Occupation: Employed ED ROS GENERAL - Review of Systems Review Of Systems: See Below Constitutional: Reports: No Symptoms HEENT: Reports: No Symptoms Respiratory: Reports: No Symptoms Cardiovascular: Reports: No Symptoms GI/Abdominal: Reports: Nausea, Vomiting. Denies: Hematemesis : Reports: No Symptoms Musculoskeletal: Reports: No Symptoms Skin: Reports: No Symptoms Neurological: Reports: Headache Psychiatric: Reports: No Symptoms ED EXAM, HEAD INJURY - Physical Exam Exam: See Below Exam Limited By: No Limitations General Appearance: Alert, WD/WN, No Apparent Distress Head: Atraumatic, Normocephalic, Scalp Tenderness. No: Scalp Lacerations, Scalp Swelling, Scalp Ecchymosis, Scalp Hematoma, Rodas's Sign, Facial Ecchymosis, Facial Swelling, Facial Tenderness, Raccoon Eyes Eyes: Bilateral Eye: EOMI, Normal Inspection, PERRL Ears: Normal External Exam, Normal Canal, Hearing Grossly Normal, Normal TMs Nose: Normal Inspection, No Blood Throat/Mouth: Normal Inspection, Normal Lips, Normal Oropharynx, Normal Voice, No Airway Compromise Neck: Non-Tender, Full Range of Motion, Normal Alignment, Normal Inspection Respiratory: No Respiratory Distress, Lungs Clear, Normal Breath Sounds, No Accessory Muscle Use Cardiovascular: Regular Rate, Rhythm, No Edema GI/Abdominal Exam: Normal Bowel Sounds, Soft, Non-Tender, No Distention Back Exam: Normal Inspection. No: CVA Tenderness (R), CVA Tenderness (L) Extremities: Normal Inspection, Normal Range of Motion, Non-Tender, No Pedal Edema Neurologic: hyster driver II-XII nml As Tested, No Motor/Sensory Deficits, Alert, Normal Mood/Affect, Oriented x 3 Skin: Normal Color, Warm/Dry - Woody Coma Score Best Eye Response (Woody): (4) Open Spontaneously Best Verbal Response (Woody): (5) Oriented Best Motor Response ([place]): (6) Obeys Commands [place] Total: 15 Course - Vital Signs Last Recorded V/S: Last Vital Signs Temp 37.5 C 08/08/20 18:39 Pulse 102 H 08/08/20 18:39 Resp 18 08/08/20 18:39 BP 146/93 H 08/08/20 18:39 Pulse Ox 98 08/08/20 18:39 - Orders/Labs/Meds Orders: Active Orders 24 hr Category Date Time Status Magnesium Oxide Med 08/08/20 20:00 Once 400 mg PO ONETIME ONE NS + KCl 20mEq/L [Normal Saline with 20 mEq KCl] 1,000 Med 08/08/20 19:00 Active ml IV ASDIRECTED Sodium Chloride 0.9% [Saline Flush] Med 08/08/20 18:00 Active 10 ml FLUSH ASDIRECTED PRN Saline Lock Insert [OM.PC] Routine Oth 08/08/20 18:00 Ordered Medication Orders Potassium Chloride/Sodium Chloride (Normal Saline With 20 Meq Kcl) 1,000 mls @ 1,000 mls/hr IV ASDIRECTED CAREY Last Admin: 08/08/20 19:17 Dose: 1,000 mls/hr Documented by: TA Sodium Chloride (Saline Flush) 10 ml FLUSH ASDIRECTED PRN PRN Reason: Keep Vein Open Last Admin: 08/08/20 19:18 Dose: 10 ml Documented by: TA Labs: Laboratory Tests 08/08/20 08/08/20 08/08/20 Range/Units 18:28 18:28 18:55 Sodium 129 L (140-148) mmol/L Potassium 2.8 L* (3.6-5.2) mmol/L Chloride 90 L (100-108) mmol/L Carbon Dioxide 27 (21-32) mmol/L Anion Gap 14.8 H (5.0-14.0) mmol/L BUN 6 L (7-18) mg/dL Creatinine 0.8 (0.8-1.3) mg/dL Est Cr Clr Drug Dosing 103.01 mL/min Estimated GFR (MDRD) > 60 (>60) Glucose 228 H (74-106) mg/dL Calcium 8.2 L (8.5-10.1) mg/dL Magnesium 1.7 L (1.8-2.4) mg/dL Total Bilirubin 1.7 H D (0.2-1.0) mg/dL AST 71 H (15-37) U/L ALT 62 (12-78) U/L Alkaline Phosphatase 178 H (46-116) U/L Troponin I 0.017 (0.000-0.056) ng/mL Total Protein 5.4 L (6.4-8.2) g/dL Albumin 3.0 L (3.4-5.0) g/dL Globulin 2.4 (2.3-3.5) g/dL Albumin/Globulin Ratio 1.3 (1.2-2.2) Ethyl Alcohol < 3 mg/dL Meds: Medications Generic Name Dose Route Start Last Admin Trade Name Freq PRN Reason Stop Dose Admin Potassium Chloride/Sodium Chloride 1,000 mls @ 1,000 mls/hr 08/08/20 19:00 08/08/20 19:17 Normal Saline With 20 Meq Kcl IV 1,000 mls/hr ASDIRECTED CAREY Administration Sodium Chloride 10 ml 08/08/20 18:00 08/08/20 19:18 Saline Flush FLUSH 10 ml ASDIRECTED PRN Administration Keep Vein Open Discontinued Medications Generic Name Dose Route Start Last Admin Trade Name Freq PRN Reason Stop Dose Admin Potassium Chloride 20 meq/ 100 mls @ 50 mls/hr 08/08/20 18:54 Premix IV 08/08/20 20:53 ONETIME ONE Ibuprofen 800 mg 08/08/20 18:41 08/08/20 18:44 Motrin PO 08/08/20 18:42 800 mg ONETIME ONE Administration Ondansetron HCl 4 mg 08/08/20 18:41 08/08/20 18:44 Zofran Odt PO 08/08/20 18:42 4 mg ONETIME ONE Administration Potassium Chloride 40 meq 08/08/20 18:55 08/08/20 19:17 Klor-Con M20 PO 08/08/20 18:56 40 meq ONETIME ONE Administration - Radiology Interpretation Free Text/Narrative:: Head CT scan- IMPRESSION: 1. No acute intracranial abnormality identified. 2. Stable postoperative changes of right frontoparietal craniotomy. TOM KEYS MD CT Results Date: 08/08/20 CT Results Time: 20:04 Departure - Departure Time of Disposition: 20:30 Disposition: Home, Self-Care 01 Condition: Fair Clinical Impression: Pseudoseizure, Hypokalemia, Elevated glucose, Hyponatremia, Hypomagnesemia Concussion Qualifiers: Encounter type: initial encounter Loss of consciousness presence/duration: without LOC Qualified Code(s): S06.0X0A - Concussion without loss of consciousness, initial encounter - Discharge Information *PRESCRIPTION DRUG MONITORING PROGRAM REVIEWED*: Not Applicable *COPY OF PRESCRIPTION DRUG MONITORING REPORT IN PATIENT LIZA: Not Applicable Instructions: Hypokalemia, Hyperglycemia, Brhq-[id number], Head Injury, Adult Referrals: Tom Lucio MD [Primary Care Provider] - Forms: ED Department Discharge Additional Instructions: Recheck with your provider this next week. Return if worse. Use Zofran as directed for nausea control. Take the potassium as directed to replace your deficit. Avoid exertion until your headaches resolve. Avoid concentrated sweets. Sepsis Event Note (ED) - Focused Exam Vital Signs: Vital Signs Temp Pulse Resp BP Pulse Ox 08/08/20 18:39 37.5 C 102 H 18 146/93 H 98 - My Orders Last 24 Hours: My Active Orders 08/08/20 18:00 Sodium Chloride 0.9% [Saline Flush] 10 ml FLUSH ASDIRECTED PRN Saline Lock Insert [OM.PC] Routine 08/08/20 19:00 NS + KCl 20mEq/L [Normal Saline with 20 mEq KCl] 1,000 ml IV ASDIRECTED 08/08/20 20:00 Magnesium Oxide 400 mg PO ONETIME ONE - Assessment/Plan Last 24 Hours: My Active Orders 08/08/20 18:00 Sodium Chloride 0.9% [Saline Flush] 10 ml FLUSH ASDIRECTED PRN Saline Lock Insert [OM.PC] Routine 08/08/20 19:00 NS + KCl 20mEq/L [Normal Saline with 20 mEq KCl] 1,000 ml IV ASDIRECTED 08/08/20 20:00 Magnesium Oxide 400 mg PO ONETIME ONE
[2020-08-08] MEDS ORDERED: Potassium Chloride 20 MEQ in Premix Bag 1 BAG IV ONE (18:54)
[2020-08-08] MEDS ORDERED: Potassium Chloride 20 MEQ Tab.ER PO ONE (18:55)
[2020-08-08] MEDS ORDERED: NS + KCl 20mEq/L 1,000 ML IV SCH (19:00)
--- NOTE | 2020-08-08 19:38 | CRLCT ---
INDICATION: head injury CT HEAD WITHOUT CONTRAST TECHNIQUE: Multiple axial CT images were performed through the head without intravenous contrast administration. COMPARISON: 06/16/[address] FINDINGS: Status post right frontoparietal craniotomy is again demonstrated. No acute intracranial hemorrhage is identified. No extra-axial collections are evident and there is no mass effect or midline shift. Ventricles are normal in size and configuration. Brain parenchyma appears normal with unremarkable pate-white differentiation. No fractures are seen. Included portions of the paranasal sinuses and mastoid air cells are normally aerated aside from trace mucosal thickening within several ethmoid air cells. IMPRESSION: 1. No acute intracranial abnormality identified. 2. Stable postoperative changes of right frontoparietal craniotomy. TOM KEYS MD [facility] Dictated by Nuno Keys MD @ 08/08/2020 7:35:24 PM Dictated by: Nuno Keys MD @ 08/08/2020 19:37:10 (Electronically Signed)
[2020-08-08] MEDS ORDERED: Magnesium Oxide 400 MG Tab PO ONE (20:00)
[2020-08-08 20:41] VITALS: PULSE 103
== END 2020-08-08 20:42 | disposition home or self-care (01) ==
LOC: JP.ED 17:57
DX: S06.0X0A Concussion without loss of consciousness, initial encounter (principal); R56.9 Unspecified convulsions; E87.6 Hypokalemia; E87.1 Hypo-osmolality and hyponatremia; E83.42 Hypomagnesemia; E11.65 Type 2 diabetes mellitus with hyperglycemia; I25.10 Atherosclerotic heart disease of native coronary artery without angina pectoris; I10 Essential (primary) hypertension; I25.2 Old myocardial infarction; F41.9 Anxiety disorder, unspecified; F32.9 Major depressive disorder, single episode, unspecified; Z79.899 Other long term (current) drug therapy; Z88.0 Allergy status to penicillin; Z88.1 Allergy status to other antibiotic agents; W22.8XXA Striking against or struck by other objects, initial encounter
CPT/HCPCS: 36415; 70450; 80053; 80307; 83735; 84484; 96365; 99284; A9270; J3480

== ENCOUNTER 2020-08-26 15:36 | Inpatient (IN) | payer OTHER, SELFPAY ==
--- NOTE | 2020-08-26 16:07 | EDM.PDOC ---
ED HPI GENERAL MEDICAL PROBLEM - General Chief Complaint: Neuro Symptoms/Deficits Stated Complaint: SEIZURES Time Seen by Provider: 08/26/20 15:44 Source of Information: Reports: Patient History Limitations: Reports: No Limitations - History of Present Illness INITIAL COMMENTS - FREE TEXT/NARRATIVE: Michael is a 49-year-old male who presents to the ED for evaluation of headache, n ausea, and shaking. Patient is well-known to the organization and has a history significant for alcohol abuse. He underwent neurosurgical evacuation of a subdural hematoma secondary to a head injury in the past. The patient has been abstinent from alcohol for the last 6 days and presents for evaluation after having sustained a significant head injury 2 days ago. In addition to this, the patient has a history significant for pseudoseizures and what sounds like episodes of catatonia or he just becomes very stiff and unresponsive. Since his fall 2 days ago the patient has had nausea and vomiting. He denies any new onset of numbness or tingling, focal weakness, or vision changes. Headache Pain Score (Numeric/FACES): 6 - Related Data Allergies Allergy/AdvReac Type Severity Reaction Status Date / Time Penicillins Allergy Hives Verified 08/26/20 15:47 erythromycin base AdvReac Nausea Verified 08/26/20 15:47 Home Meds: Home Meds Metoprolol Succinate [Toprol XL] 12.5 mg PO DAILY 05/31/20 [History] Potassium Chloride [Klor-Con M20] 20 meq PO BID #60 tab.er 06/11/20 [Rx] QUEtiapine [SEROquel] 150 mg PO BEDTIME #45 tablet 06/11/20 [Rx] Topiramate [Topamax] 50 mg PO BID #120 tablet 06/11/20 [Rx] fluvoxaMINE [Luvox] 100 mg PO BEDTIME #30 tablet 06/11/20 [Rx] levETIRAcetam [Keppra] 1,000 mg PO BID 06/16/20 [History] Past Medical History HEENT History: Reports: Impaired Vision Cardiovascular History: Reports: Arrhythmia, CAD, Hypertension, [place], Other (See Below) Other Cardiovascular History: svt Respiratory History: Reports: Bronchitis, Recurrent Gastrointestinal History: Reports: Diverticulosis, Pancreatitis Genitourinary History: Reports: Prostate Disorder, Renal Calculus Musculoskeletal History: Reports: Fracture Other Musculoskeletal History: dislocated shoulder Neurological History: Reports: Brain Injury, Concussion, Seizure Other Neuro History: subderal hematoma Psychiatric History: Reports: Addiction, Anxiety, Depression, Panic Attack, Psych Hospitalization(s), PTSD, Suicide Attempt Other Psychiatric History: Major depressive disorder. ETOH Endocrine/Metabolic History: Reports: Diabetes, Type II, Other (See Below) Other Endocrine/Metabolic History: type II diabetes history Hematologic History: Reports: B12 Deficiency, Folic Acid Immunologic History: Reports: Other (See Below) Other Immunologic History: anaplasmosis, lyme disease Dermatologic History: Reports: Eczema - Infectious Disease History Infectious Disease History: Reports: Chicken Pox - Past Surgical History HEENT Surgical History: Reports: None GI Surgical History: Reports: Bariatric Procedure, Cholecystectomy, Colonoscopy Musculoskeletal Surgical History: Reports: Arthroscopic Knee Social & Family History - Family History Family Medical History: No Pertinent Family History - Tobacco Use Tobacco Use Status *Q: Former Tobacco User Years of Tobacco use: 15 Packs/Tins Daily: 1 Used Tobacco, but Quit: Yes Month/Year Tobacco Last Used: 2004 Second Hand Smoke Exposure: No - Caffeine Use Caffeine Use: Reports: Coffee, Soda, Tea - Alcohol Use Days Per Week of Alcohol Use: 7 Number of Drinks Per Day: 10 Total Drinks Per Week: 70 - Recreational Drug Use Recreational Drug Use: No - Living Situation & Occupation Living situation: Reports: with Significant Other (reports is getting divorce from in [place], living with his son.) Occupation: Employed ED ROS GENERAL - Review of Systems Review Of Systems: See Below Constitutional: Reports: Malaise, Weakness (Generalized), Diaphoresis HEENT: Reports: Other (Patient fell and hit his head 2 days ago) Respiratory: Reports: No Symptoms Cardiovascular: Reports: No Symptoms Endocrine: Reports: No Symptoms GI/Abdominal: Reports: Nausea, Vomiting : Reports: No Symptoms Musculoskeletal: Reports: No Symptoms Skin: Reports: No Symptoms. Denies: Jaundice Neurological: Reports: Dizziness, Headache, Tremors, Difficulty Walking, Gait Disturbance Psychiatric: Reports: Anxiety Hematologic/Lymphatic: Reports: No Symptoms Immunologic: Reports: No Symptoms ED EXAM, GENERAL - Physical Exam Exam: See Below Exam Limited By: No Limitations General Appearance: Anxious, Moderate Distress Eye Exam: Bilateral Eye: EOMI, PERRL Ears: Normal External Exam, Normal Canal, Hearing Grossly Normal Head: Atraumatic, Normocephalic. No: Facial Swelling, Facial Tenderness, Sinus Tenderness Neck: Normal Inspection, Supple, Non-Tender, Full Range of Motion Respiratory/Chest: No Respiratory Distress, Lungs Clear, Normal Breath Sounds, No Accessory Muscle Use, Chest Non-Tender Cardiovascular: Normal Peripheral Pulses, No Edema, No JVD, No Murmur, Tachycardia Peripheral Pulses: 2+: Radial (L), Radial (R) GI/Abdominal: Normal Bowel Sounds, Soft, Non-Tender, No Distention Extremities: Normal Inspection, Normal Range of Motion, Non-Tender, No Pedal Edema Neurological: Alert, Oriented, CN II-XII Intact, No Motor/Sensory Deficits, Slow to Respond, Other (Patient is very tremulous. His CIWA score is 14.) Psychiatric: Anxious Skin Exam: Warm, Dry Lymphatic: No Adenopathy Course - Vital Signs Last Recorded V/S: Last Vital Signs Temp 36.4 C 08/26/20 15:56 Pulse 56 L 08/26/20 16:36 Resp 18 08/26/20 15:56 BP 153/103 H 08/26/20 16:36 Pulse Ox 97 08/26/20 16:36 - Orders/Labs/Meds Labs: Laboratory Tests 08/26/20 08/26/20 08/26/20 Range/Units 16:22 16:22 16:22 WBC 7.0 (4.5-11.0) K/uL RBC 4.96 (4.30-5.90) M/uL Hgb 14.0 (12.0-15.0) g/dL Hct 42.3 (40.0-54.0) % MCV 85 (80-98) fL MCH 28 (27-31) pg MCHC 33 (32-36) % Plt Count 286 (150-400) K/uL Neut % (Auto) 81 H (36-66) % Lymph % (Auto) 12 L (24-44) % Wake % (Auto) 4 (2-6) % Eos % (Auto) 1 L (2-4) % Baso % (Auto) 1 (0-1) % PT 10.2 (9.5-12.0) sec INR 0.93 (0.80-1.20) APTT 22.7 L (27.0-36.0) sec Sodium 140 (140-148) mmol/L Potassium 3.0 L (3.6-5.2) mmol/L Chloride 103 (100-108) mmol/L Carbon Dioxide 24 (21-32) mmol/L Anion Gap 16.0 H (5.0-14.0) mmol/L BUN 9 (7-18) mg/dL Creatinine 0.8 (0.8-1.3) mg/dL Est Cr Clr Drug Dosing 103.01 mL/min Estimated GFR (MDRD) > 60 (>60) Glucose 135 H (74-106) mg/dL Calcium 8.5 (8.5-10.1) mg/dL Magnesium (1.8-2.4) mg/dL Total Bilirubin 0.7 D (0.2-1.0) mg/dL AST 63 H (15-37) U/L ALT 119 H (12-78) U/L Alkaline Phosphatase 173 H (46-116) U/L Total Protein 6.2 L (6.4-8.2) g/dL Albumin 3.3 L (3.4-5.0) g/dL Globulin 2.9 (2.3-3.5) g/dL Albumin/Globulin Ratio 1.1 L (1.2-2.2) Ethyl Alcohol mg/dL 08/26/20 08/26/20 Range/Units 16:22 16:22 WBC (4.5-11.0) K/uL RBC (4.30-5.90) M/uL Hgb (12.0-15.0) g/dL Hct (40.0-54.0) % MCV (80-98) fL MCH (27-31) pg MCHC (32-36) % Plt Count (150-400) K/uL Neut % (Auto) (36-66) % Lymph % (Auto) (24-44) % Wake % (Auto) (2-6) % Eos % (Auto) (2-4) % Baso % (Auto) (0-1) % PT (9.5-12.0) sec INR (0.80-1.20) APTT (27.0-36.0) sec Sodium (140-148) mmol/L Potassium (3.6-5.2) mmol/L Chloride (100-108) mmol/L Carbon Dioxide (21-32) mmol/L Anion Gap (5.0-14.0) mmol/L BUN (7-18) mg/dL Creatinine (0.8-1.3) mg/dL Est Cr Clr Drug Dosing mL/min Estimated GFR (MDRD) (>60) Glucose (74-106) mg/dL Calcium (8.5-10.1) mg/dL Magnesium 2.1 (1.8-2.4) mg/dL Total Bilirubin (0.2-1.0) mg/dL AST (15-37) U/L ALT (12-78) U/L Alkaline Phosphatase (46-116) U/L Total Protein (6.4-8.2) g/dL Albumin (3.4-5.0) g/dL Globulin (2.3-3.5) g/dL Albumin/Globulin Ratio (1.2-2.2) Ethyl Alcohol < 3 mg/dL - Radiology Interpretation Free Text/Narrative:: CT of the head without contrast: No evidence for acute intracranial bleed, mass- effect, or loss of pate-white ribbon. Previous craniotomy seen with intact compliance. - Re-Assessments/Exams Free Text/Narrative Re-Assessment/Exam: 08/26/20 17:11 I reviewed the patient's labs and CT of the brain without contrast. He has some mild hypokalemia at 3.0 and elevation of his transaminases. This is likely due to his recent alcohol use. He certainly is going through withdrawal with tremor, diaphoresis, ongoing nausea and vomiting, and headache. The patient has fallen most recently 2 days ago striking his head but denies loss of consciousness. He has had a significant headache since. His CIWA evaluation was performed at bedside and he scores a 14. He is hypertensive with a blood pressure of 154/104. My recommendation is that we admit the patient for alcohol withdrawal. I had a adria discussion with the patient and his mother that if he continues to drink he will likely continue to decline in function. According to the mother the patient now has obtained insurance and will be going into treatment. I discussed the case with Dr. Peralta for admission and he will arrange care for the alcohol withdrawal. Departure - Departure Time of Disposition: 17:14 Disposition: Admitted As Inpatient 68 Clinical Impression: Recurrent falls, Hypokalemia, Noncompliance with medication regimen, History of pseudoseizure, Alcoholism /alcohol abuse Alcohol withdrawal Qualifiers: Complication of substance-induced condition: with unspecified complication Qualified Code(s): F10.239 - Alcohol dependence with withdrawal, unspecified - Discharge Information *PRESCRIPTION DRUG MONITORING PROGRAM REVIEWED*: Not Applicable *COPY OF PRESCRIPTION DRUG MONITORING REPORT IN PATIENT LIZA: Not Applicable Referrals: Baljeet Lucio MD [Primary Care Provider] - Forms: ED Department Discharge Care Plan Goals: I discussed the case with Dr. Peralta to arrange for admission of the patient for further treatment of alcohol withdrawal with unspecified complications. Patient has a history of pseudoseizure likely contributing to his recurrent falls. Sepsis Event Note (ED) - Evaluation Sepsis Screening Result: No Definite Risk - Focused Exam Vital Signs: Vital Signs Temp Pulse Resp BP Pulse Ox 08/26/20 16:36 56 L 153/103 H 97 08/26/20 15:56 36.4 C 65 18 161/100 H 100 08/26/20 15:44 36.4 C 65 18 161/100 H 100 - Problem List & Annotations (1) Hypokalemia SNOMED Code(s): 02319992 Code(s): E87.6 - HYPOKALEMIA Status: Chronic Priority: Medium Current Visit: Yes (2) Alcohol withdrawal SNOMED Code(s): 041917545 Code(s): F10.239 - ALCOHOL DEPENDENCE WITH WITHDRAWAL, UNSPECIFIED Status: Chronic Priority: Medium Current Visit: Yes Qualifiers: Complication of substance-induced condition: with unspecified complication Qualified Code(s): F10.239 - Alcohol dependence with withdrawal, unspecified (3) Alcoholism /alcohol abuse SNOMED Code(s): 1767442 Code(s): F10.20 - ALCOHOL DEPENDENCE, UNCOMPLICATED Status: Acute Priority: High Current Visit: Yes (4) History of pseudoseizure SNOMED Code(s): 403755935 Code(s): Z86.69 - PERSONAL HISTORY OF DIS OF THE NERVOUS SYS AND SENSE ORGANS Status: Chronic Priority: Medium Current Visit: Yes (5) Noncompliance with medication regimen SNOMED Code(s): 219410065 Code(s): Z91.14 - PATIENT'S OTHER NONCOMPLIANCE WITH MEDICATION REGIMEN Status: Acute Priority: High Current Visit: Yes (6) Recurrent falls SNOMED Code(s): 765171684 Code(s): R29.6 - REPEATED FALLS Status: Chronic Priority: Medium Current Visit: Yes - Problem List Review Problem List Initiated/Reviewed/Updated: Yes - Assessment/Plan Plan: Admission for further care of alcohol withdrawal requiring CIWA management.
--- NOTE | 2020-08-26 16:59 | CRLCT ---
Indication: Headache, head injury. Prior right convexity subdural hematoma January 2020. Technique: CT of the head without contrast. Coronal and sagittal reformats. Bone and soft tissue windows. Comparison: 08/08/2020 CT head, 06/16/2020 Findings: Postoperative changes of right frontal craniotomy flap. Mild chronic microangiopathic white matter changes. There is enlargement of the lateral ventricles, particularly noticeable in the temporal horns, concerning for early hydrocephalus. This does not appear significantly changed compared to 08/08/2020 but increased from 06/16/2020. No acute intracranial hemorrhage or extra-axial collection. No evidence of acute cortical infarction. No mass effect or midline shift. There is normal leahy and white matter differentiation. The orbital contents are normal. No calvarial fractures. No lytic or sclerotic osseous lesions within the calvarium or skull base. Scalp and other imaged soft tissue structures are normal. Mastoid air cells are clear. Paranasal sinuses are well aerated. Impression: 1. There is enlargement of the lateral ventricles, particularly noticeable in the temporal horns, concerning for early hydrocephalus. This does not appear significantly changed compared to 08/08/2020 but increased from 06/16/2020. 2. Postoperative changes of right frontal craniotomy flap. 3. Chronic microangiopathic white matter changes. Please note that all CT scans at this facility use dose modulation, iterative reconstruction, and/or weight-based dosing when appropriate to reduce radiation dose to as low as reasonably achievable. Dictated by Baljeet Kruse MD @ Aug 26 2020 4:51PM Signed by Dr. Baljeet Kruse @ Aug 26 2020 4:59PM
[2020-08-26] MEDS ORDERED: Sodium Chloride 0.9% 1,000 ML IV ONE (17:23)
[2020-08-26] MEDS ORDERED: LORazepam 2 MG/ML SDV IVPUSH ONE (17:24)
--- NOTE | 2020-08-26 17:38 | PCM.HP.2 ---
H&P History of Present Illness - General Date of Service: 08/26/20 Admit Problem/Dx: Admission Diagnosis/Problem Admission Diagnosis/Problem Alcohol withdrawal syndrome Source of Information: Patient, Family, Provider History Limitations: Reports: No Limitations - History of Present Illness Initial Comments - Free Text/Narative: CC: I had a bad seizure today HPI: Michael presents to the ER with his mom after he had a bad seizure today. He is currently complaining of a severe sharp headache on the right side of his head. This does not radiate but has been getting worse as the day has gone on. He did hit his head with a fall a couple of days ago and the pain has been building steadily since that time. He has been using ibuprofen which had helped but is no longer providing a benefit. He has nausea and had one small episode of vomiting. He has some diaphoresis as well as a tremor. He quit drinking 6 days ago but had been drinking heavily prior to that. He reports increasing episodes of "seizure" and his mom notes that he is out of it sometimes. He has been falling frequently at home. Prior to the falls sometimes he gets a "funny feeling" in his head and other times he just tipped over. He has multiple bumps and bruises because of this. He came to the emergency room today because of a prolonged episode of what he felt was seizure activity. While in the emergency room he had an episode of staring and unusual eye movements that his mom said is his seizure activity. This lasted for about 1 minute. There is no postictal period and he returned to normal cognition immediately. Work-up in the emergency room has been fairly unremarkable. His potassium is a little low. His head CT was unremarkable. He does score a 14 on the CIWA protocol. He is going to be admitted for management of alcohol withdrawal. Headache Pain Score (Numeric/FACES): 6 - Related Data Allergies/Adverse Reactions: Allergies Allergy/AdvReac Type Severity Reaction Status Date / Time Penicillins Allergy Hives Verified 08/26/20 15:47 erythromycin base AdvReac Nausea Verified 08/26/20 15:47 Home Medications: Home Meds Metoprolol Succinate [Toprol XL] 12.5 mg PO DAILY 05/31/20 [History] Potassium Chloride [Klor-Con M20] 20 meq PO BID #60 tab.er 06/11/20 [Rx] QUEtiapine [SEROquel] 150 mg PO BEDTIME #45 tablet 06/11/20 [Rx] Topiramate [Topamax] 50 mg PO BID #120 tablet 06/11/20 [Rx] fluvoxaMINE [Luvox] 100 mg PO BEDTIME #30 tablet 06/11/20 [Rx] levETIRAcetam [Keppra] 1,000 mg PO BID 06/16/20 [History] Past Medical History HEENT History: Reports: Impaired Vision Cardiovascular History: Reports: Arrhythmia, CAD, Hypertension, ME, Other (See Below) Other Cardiovascular History: svt Respiratory History: Reports: Bronchitis, Recurrent Gastrointestinal History: Reports: Diverticulosis, Pancreatitis Genitourinary History: Reports: Prostate Disorder, Renal Calculus Musculoskeletal History: Reports: Fracture Other Musculoskeletal History: dislocated shoulder Neurological History: Reports: Brain Injury, Concussion, Seizure Other Neuro History: subderal hematoma Psychiatric History: Reports: Addiction, Anxiety, Depression, Panic Attack, Psych Hospitalization(s), PTSD, Suicide Attempt Other Psychiatric History: Major depressive disorder. ETOH Endocrine/Metabolic History: Reports: Diabetes, Type II, Other (See Below) Other Endocrine/Metabolic History: type II diabetes history Hematologic History: Reports: B12 Deficiency, Folic Acid Immunologic History: Reports: Other (See Below) Other Immunologic History: anaplasmosis, lyme disease Dermatologic History: Reports: Eczema - Infectious Disease History Infectious Disease History: Reports: Chicken Pox - Past Surgical History HEENT Surgical History: Reports: None GI Surgical History: Reports: Bariatric Procedure, Cholecystectomy, Colonoscopy Musculoskeletal Surgical History: Reports: Arthroscopic Knee Social & Family History - Family History Family Medical History: No Pertinent Family History - Tobacco Use Tobacco Use Status *Q: Former Tobacco User Years of Tobacco use: 15 Packs/Tins Daily: 1 Used Tobacco, but Quit: Yes Month/Year Tobacco Last Used: 2004 Second Hand Smoke Exposure: No - Caffeine Use Caffeine Use: Reports: Coffee, Soda, Tea - Alcohol Use Days Per Week of Alcohol Use: 7 Number of Drinks Per Day: 10 Total Drinks Per Week: 70 - Recreational Drug Use Recreational Drug Use: No - Living Situation & Occupation Living situation: Reports: with Significant Other (reports is getting divorce from in [place], living with his son.) Occupation: Employed H&P Review of Systems - Review of Systems: Review Of Systems: See Below Free Text/Narrative: A complete 12 point review of systems was obtained. Pertinent positives and n egatives are noted in the history of present illness. All other systems were reviewed and were negative except as noted. Exam - Exam Exam: See Below - Vital Signs Vital Signs: Last Vital Signs Temp 36.4 C 08/26/20 15:56 Pulse 56 L 08/26/20 16:36 Resp 18 08/26/20 15:56 BP 153/103 H 08/26/20 16:36 Pulse Ox 97 08/26/20 16:36 Weight: 83.915 kg - Exam Quality Assessment: No: Supplemental Oxygen General: Alert, Oriented, Cooperative, Mild Distress HEENT: Conjunctiva Clear. No: Mucosa Moist & [place] (dry), Scleral Icterus Neck: Supple, Trachea Midline Lungs: Clear to Auscultation, Normal Respiratory Effort Cardiovascular: Regular Rate, Regular Rhythm GI/Abdominal Exam: Normal Bowel Sounds, Soft, Non-Tender, No Distention Extremities: No Pedal Edema. No: Increased Warmth Peripheral Pulses: 2+: Dorsalis Pedis (L), Dorsalis Pedis (R) Skin: Warm, Moist Neuro Extensive - Mental Status: Alert, Nl Response to Commands Neuro Extensive - Motor, Sensory, Reflexes: Tremor. No: Dysarthria, Abnormal Motor Psychiatric: Alert, Anxious. No: Agitated - Patient Data Lab Results Last 24 hrs: Laboratory Results - last 24 hr 08/26/20 08/26/20 08/26/20 Range/Units 16:22 16:22 16:22 WBC 7.0 (4.5-11.0) K/uL RBC 4.96 (4.30-5.90) M/uL Hgb 14.0 (12.0-15.0) g/dL Hct 42.3 (40.0-54.0) % MCV 85 (80-98) fL MCH 28 (27-31) pg MCHC 33 (32-36) % Plt Count 286 (150-400) K/uL Neut % (Auto) 81 H (36-66) % Lymph % (Auto) 12 L (24-44) % [place] % (Auto) 4 (2-6) % Eos % (Auto) 1 L (2-4) % Baso % (Auto) 1 (0-1) % PT 10.2 (9.5-12.0) sec INR 0.93 (0.80-1.20) APTT 22.7 L (27.0-36.0) sec Sodium 140 (140-148) mmol/L Potassium 3.0 L (3.6-5.2) mmol/L Chloride 103 (100-108) mmol/L Carbon Dioxide 24 (21-32) mmol/L Anion Gap 16.0 H (5.0-14.0) mmol/L BUN 9 (7-18) mg/dL Creatinine 0.8 (0.8-1.3) mg/dL Est Cr Clr Drug Dosing 103.01 mL/min Estimated GFR (MDRD) > 60 (>60) Glucose 135 H (74-106) mg/dL Calcium 8.5 (8.5-10.1) mg/dL Magnesium (1.8-2.4) mg/dL Total Bilirubin 0.7 D (0.2-1.0) mg/dL AST 63 H (15-37) U/L ALT 119 H (12-78) U/L Alkaline Phosphatase 173 H (46-116) U/L Total Protein 6.2 L (6.4-8.2) g/dL Albumin 3.3 L (3.4-5.0) g/dL Globulin 2.9 (2.3-3.5) g/dL Albumin/Globulin Ratio 1.1 L (1.2-2.2) Ethyl Alcohol mg/dL 08/26/20 08/26/20 Range/Units 16:22 16:22 WBC (4.5-11.0) K/uL RBC (4.30-5.90) M/uL Hgb (12.0-15.0) g/dL Hct (40.0-54.0) % MCV (80-98) fL MCH (27-31) pg MCHC (32-36) % Plt Count (150-400) K/uL Neut % (Auto) (36-66) % Lymph % (Auto) (24-44) % [place] % (Auto) (2-6) % Eos % (Auto) (2-4) % Baso % (Auto) (0-1) % PT (9.5-12.0) sec INR (0.80-1.20) APTT (27.0-36.0) sec Sodium (140-148) mmol/L Potassium (3.6-5.2) mmol/L Chloride (100-108) mmol/L Carbon Dioxide (21-32) mmol/L Anion Gap (5.0-14.0) mmol/L BUN (7-18) mg/dL Creatinine (0.8-1.3) mg/dL Est Cr Clr Drug Dosing mL/min Estimated GFR (MDRD) (>60) Glucose (74-106) mg/dL Calcium (8.5-10.1) mg/dL Magnesium 2.1 (1.8-2.4) mg/dL Total Bilirubin (0.2-1.0) mg/dL AST (15-37) U/L ALT (12-78) U/L Alkaline Phosphatase (46-116) U/L Total Protein (6.4-8.2) g/dL Albumin (3.4-5.0) g/dL Globulin (2.3-3.5) g/dL Albumin/Globulin Ratio (1.2-2.2) Ethyl Alcohol < 3 mg/dL Result Diagrams: 08/26/20 16:22 08/26/20 16:22 Imaging Impressions Last 24 hrs: Head CT - images personally reviewed - evidence for previous cranial surgery. No mass, bleed or infarct noted. Sepsis Event Note - Evaluation Sepsis Screening Result: No Definite Risk - Focused Exam Vital Signs: Vital Signs Temp Pulse Resp BP Pulse Ox 08/26/20 16:36 56 L 153/103 H 97 08/26/20 15:56 36.4 C 65 18 161/100 H 100 08/26/20 15:44 36.4 C 65 18 161/100 H 100 *Q Meaningful Use (ADM) - VTE Risk Assess *Q Each Risk Factor Represents 1 Point: Age 41 - 59 years, Obesity ( BMI > 25 kg/m2) Total Score 1 Point Risk Factors: 2 Each Risk Factor Represents 2 Points: None Total Score 2 Point Risk Factors: 0 Each Risk Factor Represents 3 Points: None Total Score 3 Point Risk Factors: 0 Each Risk Factor Represents 5 Points: None Total Score 5 Point Risk Factors: 0 Venous Thromboembolism Risk Factor Score *Q: 2 - Problem List (1) Alcohol withdrawal SNOMED Code(s): 479788226 ICD Code: F10.239 - ALCOHOL DEPENDENCE WITH WITHDRAWAL, UNSPECIFIED Status: Chronic Priority: Medium Current Visit: Yes Qualifiers: Complication of substance-induced condition: with perceptual disturbance Qualified Code(s): F10.232 - Alcohol dependence with withdrawal with perceptual disturbance (2) Recurrent falls SNOMED Code(s): 716783828 ICD Code: R29.6 - REPEATED FALLS Status: Chronic Priority: Medium Current Visit: Yes (3) Hypokalemia SNOMED Code(s): 58123213 ICD Code: E87.6 - HYPOKALEMIA Status: Chronic Priority: Medium Current Visit: Yes (4) Pseudoseizure SNOMED Code(s): 142712862 ICD Code: F44.5 - CONVERSION DISORDER WITH SEIZURES OR CONVULSIONS Status: Acute Current Visit: No Problem List Initiated/Reviewed/Updated: Yes Orders Last 24hrs: Active Orders 24 hr Category Date Time Status Patient Status Manage Transfer [TRANSFER] Routine ADT 08/26/20 17:28 Ordered Sodium Chloride 0.9% [Normal Saline] 1,000 ml Med 08/26/20 17:23 Active IV .BOLUS Resuscitation Status Routine Resus Stat 08/26/20 17:30 Ordered Medication Orders Sodium Chloride (Normal Saline) 1,000 mls @ 999 mls/hr IV .BOLUS ONE Stop: 08/26/20 18:23 Assessment/Plan Comment:: ASSESSMENT AND PLAN - Alcohol dependence with alcohol withdrawal-patient had been drinking heavily up until 6 days ago. He is currently experiencing headache, anxiety, diaphoresis and nausea. He is interested in quitting and is hoping that when his insurance goes through he can get into an inpatient treatment program. -ICU admission -[facility] protocol with lorazepam -Gabapentin 3 times a day -Banana bag -Supplement thiamine and folate -Cardiac monitoring Pseudoseizure-patient with unusual and somewhat seizure-like activity but no postictal period. He does have a history of pseudoseizures but has had seizures related to his subdural hematomas. He has been taking his seizure meds for the last 6 days per report of his mother. -Continue seizure medications -Close monitoring in the intensive care unit Hypokalemia-this will be supplemented tonight and rechecked in the morning. Maintenance issues - - DVT prophylaxis -mechanical - GI prophylaxis -PPI - Nutrition -clear liquids until nausea is better - [place] catheter -not indicated CODE STATUS -full code Admission justification -this patient will be admitted for inpatient services and is medically appropriate meeting medical necessity for inpatient admission as outlined in my documentation. I reasonably expect the patient will require inpatient services that span a period time over 2 midnights. I reasonably expect this patient to be discharged or transferred within 96 hours after admission to the [facility]. Disposition -I would anticipate discharge home after the hospital stay Primary care physician -Dr. Naveed Peralta M.D. - Mortality Measure Prognosis:: Good
[2020-08-26] MEDS ORDERED: Ondansetron 4 MG/2 ML SDV IVPUSH ONE (17:53)
[2020-08-26] MEDS ORDERED: Ketorolac 30 MG/ML SDV IVPUSH PRN (18:18)
[2020-08-26] MEDS ORDERED: LORazepam 2 MG/ML SDV IV SCH (18:18)
[2020-08-26] MEDS ORDERED: LORazepam 1 MG Tab PO SCH (18:18)
[2020-08-26] MEDS ORDERED: Ondansetron 4 MG/2 ML SDV IV PRN (18:18)
[2020-08-26] MEDS ORDERED: Magnesium Hydroxide 400 MG/5 ML Susp 30 ML Cup PO PRN (18:18)
[2020-08-26] MEDS ORDERED: Pantoprazole 40 MG Vial IV ONE (18:18)
[2020-08-26] MEDS ORDERED: Acetaminophen 325 MG Tab PO PRN (18:18)
[2020-08-26] MEDS ORDERED: Ondansetron 4 MG Tab.DIS PO PRN (18:18)
[2020-08-26] MEDS ORDERED: HYDROmorphone 1 MG/ML Syringe IVPUSH PRN (18:18)
[2020-08-26] MEDS ORDERED: MVI, Adult with Vitamin K 10 ML, Thiamine 100 MG, Folic Acid 1 MG, Magnesium Sulfate 2 ... IV ONE ×5 (18:18)
[2020-08-26] MEDS ORDERED: Potassium Chloride 20 MEQ, Lidocaine 1% 2 ML in Sodium Chloride 0.9% 100 ML IV SCH (18:30)
[2020-08-26] MEDS ORDERED: Potassium Chloride 20 MEQ in Premix Bag 2 BAG IV ONE (18:38)
[2020-08-26] MEDS: Potassium Chloride 20 MEQ in Premix Bag 1 BAG IV SCH ×2 (19:15→22:11)
[2020-08-26] MEDS: Ibuprofen 600 MG Tab PO PRN (19:16)
[2020-08-26] MEDS ORDERED: QUEtiapine 100 MG Tab PO SCH (21:00)
[2020-08-26] MEDS: Topiramate 25 MG Tab PO SCH (22:15)
[2020-08-26] MEDS: levETIRAcetam 250 MG Tab PO SCH (22:16)
[2020-08-26] MEDS: Gabapentin 300 MG Cap PO SCH (22:16)
[2020-08-26] MEDS: fluvoxaMINE 100 MG Tab PO SCH (22:21)
[2020-08-26] MEDS: Melatonin 3 MG Tab PO SCH (22:21)
[2020-08-26] MEDS: NS + KCl 20mEq/L 1,000 ML IV SCH (23:18)
[2020-08-27] MEDS: NS + KCl 20mEq/L 1,000 ML IV SCH (05:53)
[2020-08-27] MEDS ORDERED: Potassium Chloride 20 MEQ, Lidocaine 1% 2 ML in Sodium Chloride 0.9% 100 ML IV SCH (09:00)
[2020-08-27] MEDS ORDERED: Potassium Chloride 20 MEQ Tab.ER PO ONE (09:00)
[2020-08-27] MEDS: Gabapentin 300 MG Cap PO SCH ×3 (09:16→21:22)
--- NOTE | 2020-08-27 09:16 | PCM.PN ---
- General Info Date of Service: 08/27/20 Subjective Update: There were no acute events overnight. Patient still has a headache today which is moderate in nature. It is a little better than last night. He does not report any nausea or vomiting. He did not receive any lorazepam for alcohol withdrawal overnight. His blood pressure has normalized overnight. Heart rate is normal. Potassium is a little better but still low. No seizure activity. Functional Status: Reports: Pain Controlled - Review of Systems General: Denies: Fever HEENT: Reports: Headaches Gastrointestinal: Denies: Nausea - Patient Data Vitals - Most Recent: Last Vital Signs Temp 36.9 C 08/27/20 04:00 Pulse 53 L 08/27/20 05:55 Resp 15 08/27/20 05:55 BP 121/83 08/27/20 05:55 Pulse Ox 96 08/27/20 05:55 Weight - Most Recent: 91.989 kg I&O - Last 24 Hours: Intake & Output 08/26/20 08/27/20 08/27/20 22:59 06:59 14:59 Intake Total 2019 195 Output Total 600 700 Balance 1420 1253 Lab Results Last 24 Hours: Laboratory Results - last 24 hr 08/26/20 08/26/20 08/26/20 Range/Units 16:22 16:22 16:22 WBC 7.0 (4.5-11.0) K/uL RBC 4.96 (4.30-5.90) M/uL Hgb 14.0 (12.0-15.0) g/dL Hct 42.3 (40.0-54.0) % MCV 85 (80-98) fL MCH 28 (27-31) pg MCHC 33 (32-36) % Plt Count 286 (150-400) K/uL Neut % (Auto) 81 H (36-66) % Lymph % (Auto) 12 L (24-44) % Clay % (Auto) 4 (2-6) % Eos % (Auto) 1 L (2-4) % Baso % (Auto) 1 (0-1) % PT 10.2 (9.5-12.0) sec INR 0.93 (0.80-1.20) APTT 22.7 L (27.0-36.0) sec Sodium 140 (140-148) mmol/L Potassium 3.0 L (3.6-5.2) mmol/L Chloride 103 (100-108) mmol/L Carbon Dioxide 24 (21-32) mmol/L Anion Gap 16.0 H (5.0-14.0) mmol/L BUN 9 (7-18) mg/dL Creatinine 0.8 (0.8-1.3) mg/dL Est Cr Clr Drug Dosing 103.01 mL/min Estimated GFR (MDRD) > 60 (>60) Glucose 135 H (74-106) mg/dL Calcium 8.5 (8.5-10.1) mg/dL Magnesium (1.8-2.4) mg/dL Total Bilirubin 0.7 D (0.2-1.0) mg/dL AST 63 H (15-37) U/L ALT 119 H (12-78) U/L Alkaline Phosphatase 173 H (46-116) U/L Total Protein 6.2 L (6.4-8.2) g/dL Albumin 3.3 L (3.4-5.0) g/dL Globulin 2.9 (2.3-3.5) g/dL Albumin/Globulin Ratio 1.1 L (1.2-2.2) Ethyl Alcohol mg/dL 08/26/20 08/26/20 08/27/20 Range/Units 16:22 16:22 04:38 WBC 4.7 (4.5-11.0) K/uL RBC 4.46 (4.30-5.90) M/uL Hgb 12.6 (12.0-15.0) g/dL Hct 39.3 L (40.0-54.0) % MCV 88 (80-98) fL MCH 28 (27-31) pg MCHC 32 (32-36) % Plt Count 212 (150-400) K/uL Neut % (Auto) (36-66) % Lymph % (Auto) (24-44) % Clay % (Auto) (2-6) % Eos % (Auto) (2-4) % Baso % (Auto) (0-1) % PT (9.5-12.0) sec INR (0.80-1.20) APTT (27.0-36.0) sec Sodium (140-148) mmol/L Potassium (3.6-5.2) mmol/L Chloride (100-108) mmol/L Carbon Dioxide (21-32) mmol/L Anion Gap (5.0-14.0) mmol/L BUN (7-18) mg/dL Creatinine (0.8-1.3) mg/dL Est Cr Clr Drug Dosing mL/min Estimated GFR (MDRD) (>60) Glucose (74-106) mg/dL Calcium (8.5-10.1) mg/dL Magnesium 2.1 (1.8-2.4) mg/dL Total Bilirubin (0.2-1.0) mg/dL AST (15-37) U/L ALT (12-78) U/L Alkaline Phosphatase (46-116) U/L Total Protein (6.4-8.2) g/dL Albumin (3.4-5.0) g/dL Globulin (2.3-3.5) g/dL Albumin/Globulin Ratio (1.2-2.2) Ethyl Alcohol < 3 mg/dL 08/27/20 Range/Units 04:38 WBC (4.5-11.0) K/uL RBC (4.30-5.90) M/uL Hgb (12.0-15.0) g/dL Hct (40.0-54.0) % MCV (80-98) fL MCH (27-31) pg MCHC (32-36) % Plt Count (150-400) K/uL Neut % (Auto) (36-66) % Lymph % (Auto) (24-44) % Clay % (Auto) (2-6) % Eos % (Auto) (2-4) % Baso % (Auto) (0-1) % PT (9.5-12.0) sec INR (0.80-1.20) APTT (27.0-36.0) sec Sodium 145 (140-148) mmol/L Potassium 3.2 L (3.6-5.2) mmol/L Chloride 113 H (100-108) mmol/L Carbon Dioxide 22 (21-32) mmol/L Anion Gap 13.2 (5.0-14.0) mmol/L BUN 5 L (7-18) mg/dL Creatinine 0.7 L (0.8-1.3) mg/dL Est Cr Clr Drug Dosing 117.73 mL/min Estimated GFR (MDRD) > 60 (>60) Glucose 98 (74-106) mg/dL Calcium 7.6 L (8.5-10.1) mg/dL Magnesium 2.4 (1.8-2.4) mg/dL Total Bilirubin 0.7 (0.2-1.0) mg/dL AST 56 H (15-37) U/L ALT 94 H (12-78) U/L Alkaline Phosphatase 130 H (46-116) U/L Total Protein 5.0 L (6.4-8.2) g/dL Albumin 2.7 L (3.4-5.0) g/dL Globulin 2.3 (2.3-3.5) g/dL Albumin/Globulin Ratio 1.2 (1.2-2.2) Ethyl Alcohol mg/dL Med Orders - Current: Current Medications Acetaminophen (Tylenol) 650 mg PO Q4H PRN PRN Reason: Pain (Mild 1-3)/fever Fluvoxamine Maleate (Luvox) 100 mg PO BEDTIME [facility] Last Admin: 08/26/20 22:21 Dose: 100 mg Documented by: Folic Acid (Folic Acid) 1 mg PO DAILY [facility] Gabapentin (Neurontin) 300 mg PO TID [facility] Last Admin: 08/26/20 22:16 Dose: 300 mg Documented by: Hydromorphone HCl (Dilaudid) 0.5 mg IVPUSH Q2H PRN PRN Reason: Pain (severe 7-10) Last Admin: 08/26/20 20:18 Dose: 0.5 mg Documented by: Potassium Chloride 20 meq/Lidocaine HCl 2 ml/ Sodium Chloride 112 mls @ 56 mls/hr IV Q2H [facility] Stop: 08/27/20 10:59 Ibuprofen (Motrin) 600 mg PO Q6H PRN PRN Reason: Pain/Fever Last Admin: 08/26/20 19:16 Dose: 600 mg Documented by: Ketorolac Tromethamine (Toradol) 30 mg IVPUSH Q6H PRN PRN Reason: Pain (moderate 4-6) Levetiracetam (Keppra) 1,000 mg PO BID [facility] Last Admin: 08/26/20 22:16 Dose: 1,000 mg Documented by: Lorazepam (Ativan) 0 mg PO ASDIRECTED [facility]; Protocol Lorazepam (Ativan) 0 mg IV ASDIRECTED [facility]; Protocol Magnesium Hydroxide (Milk Of Magnesia) 30 ml PO Q12H PRN PRN Reason: Constipation Melatonin (Melatonin) 9 mg PO BEDTIME [facility] Last Admin: 08/26/20 22:21 Dose: 9 mg Documented by: Metoprolol Succinate (Toprol Xl) 12.5 mg PO DAILY [facility] Ondansetron HCl (Zofran) 4 mg IV Q6H PRN PRN Reason: Nausea/Vomiting Ondansetron HCl (Zofran Odt) 4 mg PO Q6H PRN PRN Reason: Nausea able to take PO Pantoprazole Sodium (Protonix) 40 mg PO ACBREAKFAST [facility] Quetiapine Fumarate 100 mg/ (Quetiapine Fumarate 50 mg) 150 mg PO BEDTIME [facility] Senna/Docusate Sodium (Senna Plus) 1 tab PO BID PRN PRN Reason: Constipation Thiamine HCl (Vitamin B-1) 100 mg PO DAILY [facility] Topiramate (Topamax) 50 mg PO BID [facility] Last Admin: 08/26/20 22:15 Dose: 50 mg Documented by: Discontinued Medications Sodium Chloride (Normal Saline) 1,000 mls @ 999 mls/hr IV .BOLUS ONE Stop: 08/26/20 18:23 Last Admin: 08/26/20 17:46 Dose: 999 mls/hr Documented by: Multivitamins/Minerals 10 ml/Thiamine HCl 100 mg/ Folic Acid 1 mg/ Magnesium Sulfate 2 gm/ Sodium Chloride 1,015.2 mls @ 250 mls/hr IV ONETIME ONE Stop: 08/26/20 22:21 Last Admin: 08/26/20 19:03 Dose: 250 mls/hr Documented by: Potassium Chloride/Sodium Chloride (Normal Saline With 20 Meq Kcl) 1,000 mls @ 125 mls/hr IV ASDIRECTED [facility] Last Admin: 08/27/20 05:53 Dose: 125 mls/hr Documented by: Potassium Chloride 20 meq/Lidocaine HCl 2 ml/ Sodium Chloride 112 mls @ 50 mls/hr IV Q2H [facility] Stop: 08/26/20 22:29 Last Admin: 08/26/20 20:15 Dose: 50 mls/hr Documented by: Potassium Chloride 20 meq/ (Premix) 0 mls @ 50 mls/hr IV ONETIME ONE Stop: 08/26/20 18:39 Last Admin: 08/26/20 19:20 Dose: 50 mls/hr Documented by: Potassium Chloride 20 meq/ (Premix) 100 mls @ 50 mls/hr IV Q2H [facility] Stop: 08/26/20 22:59 Last Admin: 08/26/20 22:11 Dose: 50 mls/hr Documented by: Lidocaine HCl (Xylocaine-Mpf 1%) 2 ml INJECT ONETIME ONE Stop: 08/26/20 18:41 Last Admin: 08/26/20 19:14 Dose: 2 ml Documented by: Lorazepam (Ativan) 1 mg IVPUSH ONETIME ONE Stop: 08/26/20 17:25 Last Admin: 08/26/20 17:48 Dose: 1 mg Documented by: Ondansetron HCl (Zofran) 4 mg IVPUSH ONETIME ONE Stop: 08/26/20 17:54 Last Admin: 08/26/20 17:58 Dose: 4 mg Documented by: Pantoprazole Sodium (Protonix Iv) 40 mg IV ONETIME ONE Stop: 08/26/20 18:19 Last Admin: 08/26/20 19:20 Dose: 40 mg Documented by: Potassium Chloride (Klor-Con M20) 40 meq PO ONETIME ONE Stop: 08/27/20 09:01 Quetiapine Fumarate (Seroquel) 150 mg PO BEDTIME [facility] Last Admin: 08/26/20 22:17 Dose: 150 mg Documented by: - Exam Quality Assessment: No: Supplemental Oxygen General: Alert, Oriented, Cooperative, No Acute Distress Neck: Supple Lungs: Normal Respiratory Effort. No: Wheezing Cardiovascular: Regular Rate, Regular Rhythm GI/Abdominal Exam: Soft, No Distention Extremities: No Pedal Edema. No: Increased Warmth Skin: Warm, Dry Psy/Mental Status: Alert, Normal Affect Sepsis Event Note - Evaluation Sepsis Screening Result: No Definite Risk - Focused Exam Vital Signs: Vital Signs Temp Pulse Resp BP Pulse Ox 08/27/20 05:55 53 L 15 121/83 96 08/27/20 04:00 36.9 C 62 15 108/73 96 08/27/20 02:00 53 L 15 119/78 95 08/27/20 00:00 37.3 C 67 18 126/89 96 08/26/20 22:00 68 16 125/84 94 L - Problem List & Annotations (1) Alcohol withdrawal SNOMED Code(s): 203782660 Code(s): F10.239 - ALCOHOL DEPENDENCE WITH WITHDRAWAL, UNSPECIFIED Status: Chronic Priority: Medium Current Visit: Yes Qualifiers: Complication of substance-induced condition: with perceptual disturbance Qualified Code(s): F10.232 - Alcohol dependence with withdrawal with perceptual disturbance (2) Recurrent falls SNOMED Code(s): 894287883 Code(s): R29.6 - REPEATED FALLS Status: Chronic Priority: Medium Current Visit: Yes (3) Hypokalemia SNOMED Code(s): 55635185 Code(s): E87.6 - HYPOKALEMIA Status: Chronic Priority: Medium Current Visit: Yes (4) Pseudoseizure SNOMED Code(s): 528692768 Code(s): F44.5 - CONVERSION DISORDER WITH SEIZURES OR CONVULSIONS Status: Resolved Current Visit: No - Problem List Review Problem List Initiated/Reviewed/Updated: Yes - My Orders Last 24 Hours: My Active Orders 08/26/20 17:30 Resuscitation Status Routine 08/26/20 18:18 Acetaminophen [TylenoL] 650 mg PO Q4H PRN Docusate Sodium/Sennosides [Senna Plus] 1 tab PO BID PRN HYDROmorphone [Dilaudid] 0.5 mg IVPUSH Q2H PRN Ibuprofen [Motrin] 600 mg PO Q6H PRN Ketorolac [Toradol] 30 mg IVPUSH Q6H PRN LORazepam [Ativan] See Protocol IV ASDIRECTED LORazepam [Ativan] See Protocol PO ASDIRECTED Magnesium Hydroxide [Milk of Magnesia] 30 ml PO Q12H PRN Ondansetron [Zofran ODT] 4 mg PO Q6H PRN Ondansetron [Zofran] 4 mg IV Q6H PRN 08/26/20 18:18 Patient Status [ADT] Routine Antiembolic Devices [RC] .Routine CIWAA Assessment [RC] Q1H Cardiac Monitoring [RC] CONTINUOUS Intake and Output [RC] QSHIFT Notify Provider Vital Signs [RC] ASDIRECTED Notify Provider [RC] PRN Oxygen Therapy [RC] PRN Pulse Oximetry [RC] CONTINUOUS Up With Assistance [RC] ASDIRECTED VTE/DVT Education [RC] Per Unit Routine Vital Signs [RC] Q2HR PT Evaluation and Treatment [CONS] Routine Sequential Compression Device [OM.PC] Routine 08/26/20 21:00 Gabapentin [Neurontin] 300 mg PO TID Melatonin 9 mg PO BEDTIME Topiramate [Topamax] 50 mg PO BID fluvoxaMINE [Luvox] 100 mg PO BEDTIME levETIRAcetam [Keppra] 1,000 mg PO BID 08/27/20 07:30 Pantoprazole [ProTONIX] 40 mg PO ACBREAKFAST 08/27/20 Breakfast Regular Diet [DIET] 08/27/20 09:00 Folic Acid 1 mg PO DAILY Metoprolol Succinate [Toprol XL] 12.5 mg PO DAILY Potassium Chloride 20 meq Lidocaine 1% [Xylocaine 1%] 2 ml Sodium Chloride 0.9% [Normal Saline] 100 ml IV Q2H Thiamine [Vitamin B-1] 100 mg PO DAILY 08/27/20 09:15 Convert IV to Saline Lock [OM.PC] Routine 08/27/20 21:00 Potassium Chloride [Klor-Con M20] 20 meq PO BID Quetiapine [Seroquel] 150 mg PO BEDTIME - Plan Plan:: ASSESSMENT AND PLAN - Alcohol dependence with alcohol withdrawal-no impressive evidence for withdrawal overnight and he did not require any lorazepam. He is on gabapentin prophylaxis. Nausea has resolved. 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 -Continue seizure medications -Close monitoring in the intensive care unit Hypokalemia-improved with supplementation but still low. -Additional supplementation today Maintenance issues - - DVT prophylaxis -mechanical - GI prophylaxis -PPI - Nutrition -regular Disposition -I would anticipate discharge home after the hospital stay Primary care physician -Dr. Nvaeed Peralta M.D.
[2020-08-27] MEDS: Thiamine 100 MG Tab PO SCH (09:18)
[2020-08-27] MEDS: Metoprolol Succinate 25 MG Tab.ER PO SCH (09:18)
[2020-08-27] MEDS: Topiramate 25 MG Tab PO SCH ×2 (09:19→21:23)
[2020-08-27] MEDS: levETIRAcetam 250 MG Tab PO SCH ×2 (09:20→21:21)
[2020-08-27] MEDS: Pantoprazole 40 MG Tab.CR PO SCH (09:21)
[2020-08-27] MEDS: Folic Acid 1 MG Tab PO SCH (09:21)
[2020-08-27] MEDS: Ibuprofen 600 MG Tab PO PRN (09:24)
[2020-08-27] MEDS: HYDROmorphone 0.5 MG/0.5 ML Syringe IVPUSH PRN ×5 (12:32→22:22)
[2020-08-27] MEDS ORDERED: QUEtiapine 100 MG, QUEtiapine 50 MG PO SCH ×2 (21:00)
[2020-08-27] MEDS: Potassium Chloride 20 MEQ Tab.ER PO SCH (21:21)
[2020-08-27] MEDS: Melatonin 3 MG Tab PO SCH (21:22)
[2020-08-27] MEDS: fluvoxaMINE 100 MG Tab PO SCH (21:23)
[2020-08-28] MEDS: HYDROmorphone 0.5 MG/0.5 ML Syringe IVPUSH PRN ×4 (04:18→14:03)
[2020-08-28] MEDS: Ibuprofen 600 MG Tab PO PRN ×2 (04:18→10:19)
[2020-08-28] MEDS: Pantoprazole 40 MG Tab.CR PO SCH (07:41)
[2020-08-28] MEDS: Topiramate 25 MG Tab PO SCH (08:43)
[2020-08-28] MEDS: levETIRAcetam 250 MG Tab PO SCH (08:43)
[2020-08-28] MEDS: Folic Acid 1 MG Tab PO SCH (08:43)
[2020-08-28] MEDS: Potassium Chloride 20 MEQ Tab.ER PO SCH (08:43)
[2020-08-28] MEDS: Gabapentin 300 MG Cap PO SCH (08:43)
[2020-08-28] MEDS: Thiamine 100 MG Tab PO SCH (08:43)
[2020-08-28 08:44] VITALS: PULSE 98
[2020-08-28] MEDS: Metoprolol Succinate 25 MG Tab.ER PO SCH (08:44)
[2020-08-28 12:51] VITALS: BP 133/88
--- NOTE | 2020-08-28 13:43 | PCM.DCSUM1 ---
Discharge Summary - Hospital Course Brief History: 49-year-old male with history of traumatic brain injury, alcohol dependence, previous subdural hematomas who presented with reported seizure-like activity, recurrent falls and weakness. He was admitted for management of mild alcohol withdrawal, pseudoseizure activity and hypokalemia. Diagnosis: Stroke: No - Discharge Data Discharge Date: 08/28/20 Discharge Disposition: Home, Self-Care 01 Condition: Fair - Referral to Home Health Primary Care Physician: Baljeet Lucio MD - Discharge Diagnosis/Problem(s) (1) Alcohol withdrawal SNOMED Code(s): 867917580 ICD Code: F10.239 - ALCOHOL DEPENDENCE WITH WITHDRAWAL, UNSPECIFIED Status: Chronic Priority: Medium Current Visit: Yes Qualifiers: Complication of substance-induced condition: with perceptual disturbance Qualified Code(s): F10.232 - Alcohol dependence with withdrawal with perceptual disturbance (2) Recurrent falls SNOMED Code(s): 794653916 ICD Code: R29.6 - REPEATED FALLS Status: Chronic Priority: Medium Current Visit: Yes (3) Hypokalemia SNOMED Code(s): 79332434 ICD Code: E87.6 - HYPOKALEMIA Status: Chronic Priority: Medium Current Visit: Yes (4) Pseudoseizure SNOMED Code(s): 134489374 ICD Code: F44.5 - CONVERSION DISORDER WITH SEIZURES OR CONVULSIONS Status: Resolved Current Visit: No - Patient Summary/Data Consults: Consultations 08/26/20 18:18 PT Evaluation and Treatment [CONS] Routine Please Evaluate and Treat. PT Reason for Consult: Strengthening This query below is only for informational purposes and is not editable. Hospital Course: Michael presented to the emergency room with right-sided headache, multiple falls at home as well as reported seizure-like activity. He reported that he had quit drinking 6 days prior. Work-up in the emergency room was fairly reassuring other than mild evidence for alcohol withdrawal. Laboratory studies revealed mild hypokalemia. A head CT did not show any acute findings. Because of the recurrent falls, significant headache and hypokalemia along with mild alcohol wi thdrawal the patient was admitted to the hospital for further management. Fortunately there was no impressive evidence for alcohol withdrawal during the hospital stay. He ended up only needing 1 dose of lorazepam. His vital signs have all been stable. His potassium has improved with supplementation. There is been no seizure activity or pseudoseizure activity noted during the course of the hospital stay. He has done well with physical therapy and seems to be ambulating effectively. Patient had some nausea at presentation but has been eating normal meals during the hospital stay with no vomiting. I believe he is safe for discharge home at this time. He is still working on obtaining health insurance and hopes to get back into counseling and potentially alcohol treatment. We did discuss the dangers of alcohol use and enormous importance of complete sobriety. He feels that he has good support from his mother but in the past has gone behind her back to get alcohol and drink without her knowledge. He does have contact information for Alcoholics Anonymous. - Patient Instructions Diet: Regular Diet as Tolerated Activity: As Tolerated Showering/Bathing: May Shower Notify Provider of: Fever, Increased Pain Other/Special Instructions: 1. I strongly encourage you to completely avoid alcohol. 2. Complete the paperwork and process for health insurance as this well increase your resources for counseling and treatment. 3. Use Ibuprofen alternating with acetaminophen for pain control. - Discharge Plan *PRESCRIPTION DRUG MONITORING PROGRAM REVIEWED*: Not Applicable *COPY OF PRESCRIPTION DRUG MONITORING REPORT IN PATIENT LIZA: Not Applicable Home Medications: Home Meds Metoprolol Succinate [Toprol XL] 12.5 mg PO DAILY 05/31/20 [History] Potassium Chloride [Klor-Con M20] 20 meq PO BID #60 tab.er 06/11/20 [Rx] QUEtiapine [SEROquel] 150 mg PO BEDTIME #45 tablet 06/11/20 [Rx] Topiramate [Topamax] 50 mg PO BID #120 tablet 06/11/20 [Rx] fluvoxaMINE [Luvox] 100 mg PO BEDTIME #30 tablet 06/11/20 [Rx] levETIRAcetam [Keppra] 1,000 mg PO BID 06/16/20 [History] Patient Handouts: Alcohol Abuse and Dependence Information, Adult Referrals: Baljeet Lucio MD [Primary Care Provider] - (1-2 [place] - /u hospital stay for alcohol dependence and headache ) - Discharge Summary/Plan Comment DC Time >30 min.: No - Patient Data Vitals - Most Recent: Last Vital Signs Temp 36.3 C 08/28/20 08:00 Pulse 98 08/28/20 08:44 Resp 14 08/28/20 12:00 BP 133/88 08/28/20 12:00 Pulse Ox 97 08/28/20 12:00 Weight - Most Recent: 91.989 kg I&O - Last 24 hours: Intake & Output 08/27/20 08/28/20 08/28/20 22:59 06:59 14:59 Intake Total 1700 Output Total 9390 338 3540 Balance 150 -875 -1100 Med Orders - Current: Current Medications Acetaminophen (Tylenol) 650 mg PO Q4H PRN PRN Reason: Pain (Mild 1-3)/fever Last Admin: 08/27/20 10:55 Dose: 650 mg Documented by: Fluvoxamine Maleate (Luvox) 100 mg PO BEDTIME [facility] Last Admin: 08/27/20 21:23 Dose: 100 mg Documented by: Folic Acid (Folic Acid) 1 mg PO DAILY [facility] Last Admin: 08/28/20 08:43 Dose: 1 mg Documented by: Gabapentin (Neurontin) 300 mg PO TID [facility] Last Admin: 08/28/20 08:43 Dose: 300 mg Documented by: Hydromorphone HCl (Dilaudid) 0.5 mg IVPUSH Q2H PRN PRN Reason: Pain (severe 7-10) Last Admin: 08/28/20 11:06 Dose: 0.5 mg Documented by: Ibuprofen (Motrin) 600 mg PO Q6H PRN PRN Reason: Pain/Fever Last Admin: 08/28/20 10:19 Dose: 600 mg Documented by: Ketorolac Tromethamine (Toradol) 30 mg IVPUSH Q6H PRN PRN Reason: Pain (moderate 4-6) Stop: 08/31/20 18:19 Levetiracetam (Keppra) 1,000 mg PO BID [facility] Last Admin: 08/28/20 08:43 Dose: 1,000 mg Documented by: Lorazepam (Ativan) 0 mg PO ASDIRECTED [facility]; Protocol Lorazepam (Ativan) 0 mg IV ASDIRECTED [facility]; Protocol Magnesium Hydroxide (Milk Of Magnesia) 30 ml PO Q12H PRN PRN Reason: Constipation Melatonin (Melatonin) 9 mg PO BEDTIME [facility] Last Admin: 08/27/20 21:22 Dose: 9 mg Documented by: Metoprolol Succinate (Toprol Xl) 12.5 mg PO DAILY [facility] Last Admin: 08/28/20 08:44 Dose: 12.5 mg Documented by: Ondansetron HCl (Zofran) 4 mg IV Q6H PRN PRN Reason: Nausea/Vomiting Last Admin: 08/27/20 12:25 Dose: 4 mg Documented by: Ondansetron HCl (Zofran Odt) 4 mg PO Q6H PRN PRN Reason: Nausea able to take PO Pantoprazole Sodium (Protonix) 40 mg PO ACBREAKFAST [facility] Last Admin: 08/28/20 07:41 Dose: 40 mg Documented by: Potassium Chloride (Klor-Con M20) 20 meq PO BID [facility] Last Admin: 08/28/20 08:43 Dose: 20 meq Documented by: Quetiapine Fumarate 100 mg/ (Quetiapine Fumarate 50 mg) 150 mg PO BEDTIME [facility] Last Admin: 08/27/20 21:22 Dose: 150 mg Documented by: Senna/Docusate Sodium (Senna Plus) 1 tab PO BID PRN PRN Reason: Constipation Thiamine HCl (Vitamin B-1) 100 mg PO DAILY [facility] Last Admin: 08/28/20 08:43 Dose: 100 mg Documented by: Topiramate (Topamax) 50 mg PO BID [facility] Last Admin: 08/28/20 08:43 Dose: 50 mg Documented by: Discontinued Medications Hydromorphone HCl (Dilaudid) 0.5 mg IVPUSH Q2H PRN PRN Reason: Pain (severe 7-10) Last Admin: 08/26/20 20:18 Dose: 0.5 mg Documented by: Sodium Chloride (Normal Saline) 1,000 mls @ 999 mls/hr IV .BOLUS ONE Stop: 08/26/20 18:23 Last Admin: 08/26/20 17:46 Dose: 999 mls/hr Documented by: Multivitamins/Minerals 10 ml/Thiamine HCl 100 mg/ Folic Acid 1 mg/ Magnesium Sulfate 2 gm/ Sodium Chloride 1,015.2 mls @ 250 mls/hr IV ONETIME ONE Stop: 08/26/20 22:21 Last Admin: 08/26/20 19:03 Dose: 250 mls/hr Documented by: Potassium Chloride/Sodium Chloride (Normal Saline With 20 Meq Kcl) 1,000 mls @ 125 mls/hr IV ASDIRECTED [facility] Last Admin: 08/27/20 05:53 Dose: 125 mls/hr Documented by: Potassium Chloride 20 meq/Lidocaine HCl 2 ml/ Sodium Chloride 112 mls @ 50 mls/hr IV Q2H [facility] Stop: 08/26/20 22:29 Last Admin: 08/26/20 20:15 Dose: 50 mls/hr Documented by: Potassium Chloride 20 meq/ (Premix) 0 mls @ 50 mls/hr IV ONETIME ONE Stop: 08/26/20 18:39 Last Admin: 08/26/20 19:20 Dose: 50 mls/hr Documented by: Potassium Chloride 20 meq/ (Premix) 100 mls @ 50 mls/hr IV Q2H [facility] Stop: 08/26/20 22:59 Last Admin: 08/26/20 22:11 Dose: 50 mls/hr Documented by: Potassium Chloride 20 meq/Lidocaine HCl 2 ml/ Sodium Chloride 112 mls @ 56 mls/hr IV Q2H [facility] Stop: 08/27/20 10:59 Last Admin: 08/27/20 09:29 Dose: 56 mls/hr Documented by: Lidocaine HCl (Xylocaine-Mpf 1%) 2 ml INJECT ONETIME ONE Stop: 08/26/20 18:41 Last Admin: 08/26/20 19:14 Dose: 2 ml Documented by: Lorazepam (Ativan) 1 mg IVPUSH ONETIME ONE Stop: 08/26/20 17:25 Last Admin: 08/26/20 17:48 Dose: 1 mg Documented by: Ondansetron HCl (Zofran) 4 mg IVPUSH ONETIME ONE Stop: 08/26/20 17:54 Last Admin: 08/26/20 17:58 Dose: 4 mg Documented by: Pantoprazole Sodium (Protonix Iv) 40 mg IV ONETIME ONE Stop: 08/26/20 18:19 Last Admin: 08/26/20 19:20 Dose: 40 mg Documented by: Potassium Chloride (Klor-Con M20) 40 meq PO ONETIME ONE Stop: 08/27/20 09:01 Last Admin: 08/27/20 09:16 Dose: 40 meq Documented by: Quetiapine Fumarate (Seroquel) 150 mg PO BEDTIME [facility] Last Admin: 08/26/20 22:17 Dose: 150 mg Documented by:
== END 2020-08-28 14:29 | disposition home or self-care (01) | DRG 897 ==
LOC: JP.ED 15:36 → JP.ICU 17:35
PROVIDERS: ADMIT Internal Medicine; ATTEND Internal Medicine
DX: F10.232 Alcohol dependence with withdrawal with perceptual disturbance (principal); E87.6 Hypokalemia; R29.6 Repeated falls; F44.5 Conversion disorder with seizures or convulsions; W18.30XA Fall on same level, unspecified, initial encounter; Y92.009 Unspecified place in unspecified non-institutional (private) residence as the place of occurrence of the external cause; I25.10 Atherosclerotic heart disease of native coronary artery without angina pectoris; I10 Essential (primary) hypertension; I25.2 Old myocardial infarction; Z87.442 Personal history of urinary calculi; F41.9 Anxiety disorder, unspecified; F32.9 Major depressive disorder, single episode, unspecified; F41.0 Panic disorder [episodic paroxysmal anxiety]; E11.9 Type 2 diabetes mellitus without complications; Z79.4 Long term (current) use of insulin
CPT/HCPCS: 36415; 70450; 80053; 80307; 83735; 85025; 85027; 85610; 85730; 96374; 96375; 97161-GP; 97530-GP; 97535-GP; 99285-25; A9270-GY; C9113; J1170; J2001; J2060; J2405; J3411; J3475; J3480; J3490; J7030

== ENCOUNTER 2020-09-05 20:53 | Emergency (ER) | payer OTHER, SELFPAY ==
[2020-09-05 20:57] VITALS: BP 132/81; PULSE 119
--- NOTE | 2020-09-05 21:11 | EDM.PDOCBH ---
ED HPI GENERAL MEDICAL PROBLEM - General Chief Complaint: Drug or Alcohol Abuse Stated Complaint: FALL/SEIZURES VIA [facility] Time Seen by Provider: 09/05/20 20:53 Source of Information: Reports: Patient, EMS History Limitations: Reports: Intoxication - History of Present Illness INITIAL COMMENTS - FREE TEXT/NARRATIVE: 49-year-old male chronic alcoholic, history of pseudoseizures who frequently manipulates the medical system by calling the ambulance claiming to have seizures or headache or head injury. Again he had "3 seizures", and also fell and "hit his head". He has been drinking up until 6 hours ago. He received Versed in route by EMS for his "seizures". Onset: Unknown/Unsure Associated Symptoms: Reports: Confusion, Other (Difficulty focusing his eyes) - Related Data Allergies Allergy/AdvReac Type Severity Reaction Status Date / Time Penicillins Allergy Hives Verified 09/05/20 20:56 erythromycin base AdvReac Nausea Verified 09/05/20 20:56 Home Meds: Home Meds Metoprolol Succinate [Toprol XL] 12.5 mg PO DAILY 05/31/20 [History] Potassium Chloride [Klor-Con M20] 20 meq PO BID #60 tab.er 06/11/20 [Rx] QUEtiapine [SEROquel] 150 mg PO BEDTIME #45 tablet 06/11/20 [Rx] Topiramate [Topamax] 50 mg PO BID #120 tablet 06/11/20 [Rx] fluvoxaMINE [Luvox] 100 mg PO BEDTIME #30 tablet 06/11/20 [Rx] levETIRAcetam [Keppra] 1,000 mg PO BID 06/16/20 [History] Past Medical History HEENT History: Reports: Impaired Vision Cardiovascular History: Reports: Arrhythmia, CAD, Hypertension, [place], Other (See Below) Other Cardiovascular History: svt Respiratory History: Reports: Bronchitis, Recurrent Gastrointestinal History: Reports: Diverticulosis, Pancreatitis Genitourinary History: Reports: Prostate Disorder, Renal Calculus Musculoskeletal History: Reports: Fracture Other Musculoskeletal History: dislocated shoulder Neurological History: Reports: Brain Injury, Concussion, Seizure Other Neuro History: subderal hematoma Psychiatric History: Reports: Addiction, Anxiety, Depression, Panic Attack, Psych Hospitalization(s), PTSD, Suicide Attempt Other Psychiatric History: Major depressive disorder. ETOH Endocrine/Metabolic History: Reports: Diabetes, Type II, Other (See Below) Other Endocrine/Metabolic History: type II diabetes history Hematologic History: Reports: B12 Deficiency, Folic Acid Immunologic History: Reports: Other (See Below) Other Immunologic History: anaplasmosis, lyme disease Dermatologic History: Reports: Eczema - Infectious Disease History Infectious Disease History: Reports: Chicken Pox - Past Surgical History HEENT Surgical History: Reports: None GI Surgical History: Reports: Bariatric Procedure, Cholecystectomy, Colonoscopy Musculoskeletal Surgical History: Reports: Arthroscopic Knee Social & Family History - Family History Family Medical History: No Pertinent Family History - Tobacco Use Tobacco Use Status *Q: Never Tobacco User - Caffeine Use Caffeine Use: Reports: None - Recreational Drug Use Recreational Drug Use: No - Living Situation & Occupation Living situation: Reports: with Significant Other (reports is getting divorce from in [place], living with his son.) Occupation: Employed ED ROS GENERAL - Review of Systems Review Of Systems: See Below Constitutional: Reports: Malaise. Denies: Fever, Chills HEENT: Reports: Other (Trouble focusing his vision) Respiratory: Denies: Shortness of Breath GI/Abdominal: Denies: Abdominal Pain Skin: Denies: Bruising Neurological: Reports: Headache (Headache on the right side of his head "where he had his bleed".) ED EXAM, BEHAVIORAL HEALTH - Physical Exam Exam: See Below Exam Limited By: Intoxication General Appearance: Alert, No Apparent Distress Eye Exam: Bilateral Eye: EOMI, PERRL Ears: Other (A small amount of dried blood is on the left ear helix but the canal is clear and tympanic membranes bilaterally are normal. There appears to be a small scratch at the edge of the canal.) Head: Atraumatic Neck: Non-Tender Respiratory/Chest: No Respiratory Distress Neurological: Alert, No Motor/Sensory Deficits, Oriented x 3 Psychiatric: Flat Affect COURSE, BEHAVIORAL HEALTH COMP - Course Vital Signs: Last Vital Signs Temp 99.3 F 09/05/20 21:08 Pulse 119 H 09/05/20 21:08 Resp 16 09/05/20 21:08 BP 132/81 09/05/20 21:08 Pulse Ox 97 09/05/20 21:08 Re-Assessment/Re-Exam: Head CT was obtained and normal, stable. Patient will be discharged and taken home by his mother. He was strongly encouraged to go to detox but he refused, he said he is going to "sober up at home". Departure - Departure Time of Disposition: 21:39 Disposition: Home, Self-Care 01 Clinical Impression: Alcoholism /alcohol abuse, Intoxication, History of pseudoseizure Closed head injury Qualifiers: Encounter type: initial encounter Qualified Code(s): S09.90XA - Unspecified injury of head, initial encounter - Discharge Information Instructions: Head Injury, Adult Referrals: PCP,None [Primary Care Provider] - Forms: ED Department Discharge Care Plan Goals: Continue your current medications, consider inpatient treatment for detox and alcoholism. Sepsis Event Note (ED) - Evaluation Sepsis Screening Result: No Definite Risk - Focused Exam Vital Signs: Vital Signs Temp Pulse Resp BP Pulse Ox 09/05/20 21:08 99.3 F 119 H 16 132/81 97 09/05/20 20:56 99.3 F 119 H 16 132/81 97
--- NOTE | 2020-09-05 22:03 | CRLCT ---
INDICATION: Head injury. CT HEAD WITHOUT CONTRAST TECHNIQUE: Multiple axial CT images were performed through the head without intravenous contrast administration. COMPARISON: 08/26/[address] FINDINGS: Status post right frontal craniotomy, as before. No acute intracranial hemorrhage is identified. No extra-axial collections are evident and there is no mass effect or midline shift. There is stable mild prominence of the ventricular system, particularly of the temporal horn of the right lateral ventricle. Brain parenchyma appears normal with unremarkable pate-white differentiation. No fractures are seen. Included portions of the paranasal sinuses and mastoid air cells are normally aerated. IMPRESSION: 1. No intracranial hemorrhage or other acute intracranial abnormality identified. 2. Status post right frontal craniotomy, as before. 3. Stable mild ventricular enlargement. TOM KEYS MD [employer] Dictated by Nuno Keys MD @ 09/05/2020 9:57:53 PM Dictated by: Nuno Keys MD @ 09/05/2020 22:02:47 (Electronically Signed)
== END 2020-09-05 21:39 | disposition home or self-care (01) ==
LOC: JP.ED 20:53
DX: S09.90XA Unspecified injury of head, initial encounter (principal); F10.229 Alcohol dependence with intoxication, unspecified; I25.10 Atherosclerotic heart disease of native coronary artery without angina pectoris; I10 Essential (primary) hypertension; I25.2 Old myocardial infarction; R56.9 Unspecified convulsions; E11.9 Type 2 diabetes mellitus without complications; Z88.0 Allergy status to penicillin; Z88.1 Allergy status to other antibiotic agents; Z79.899 Other long term (current) drug therapy; W22.8XXA Striking against or struck by other objects, initial encounter
CPT/HCPCS: 70450; 99283; 99284-25

== ENCOUNTER 2020-09-22 01:22 | Emergency (ER) | payer SELFPAY ==
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
[2020-09-22] MEDS ORDERED: Potassium Chloride 20 MEQ in Premix Bag 1 BAG IV ONE (02:02)
[2020-09-22] MEDS ORDERED: ceFAZolin 1 GM in Sodium Chloride 0.9% 50 ML IV ONE (02:17)
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
[2020-09-22 03:53] VITALS: BP 117/85; PULSE 109
== END 2020-09-22 04:24 | disposition other institution (70) ==
LOC: JP.ED 01:22
DX: S02.832A Fracture of medial orbital wall, left side, initial encounter for closed fracture (principal); S01.112A Laceration without foreign body of left eyelid and periocular area, initial encounter; F10.120 Alcohol abuse with intoxication, uncomplicated; E87.6 Hypokalemia; I25.10 Atherosclerotic heart disease of native coronary artery without angina pectoris; I10 Essential (primary) hypertension; I25.2 Old myocardial infarction; R56.9 Unspecified convulsions; E11.9 Type 2 diabetes mellitus without complications; Z79.899 Other long term (current) drug therapy; Y90.8 Blood alcohol level of 240 mg/100 ml or more; Y04.0XXA Assault by unarmed brawl or fight, initial encounter
CPT/HCPCS: 36415; 70450; 70486; 72125; 80053; 80307; 85025; 96365; 96366; 96368; 99285; J0690; J3480

== ENCOUNTER 2021-01-18 00:44 | Emergency (ER) | payer MEDICAID, SELFPAY ==
[2021-01-18] MEDS ORDERED: Morphine 4 MG/ML Syringe IVPUSH PRN (01:18)
--- NOTE | 2021-01-18 01:23 | EDM.PDOC ---
<OfficerJoey - Last Filed: 01/18/21 06:42> ED HPI GENERAL MEDICAL PROBLEM - General Chief Complaint: Chest Pain Stated Complaint: [facility] Time Seen by Provider: 01/18/21 01:05 Source of Information: Reports: Patient, Family, RN Notes Reviewed History Limitations: Reports: No Limitations - History of Present Illness INITIAL COMMENTS - FREE TEXT/NARRATIVE: 50-year-old gentleman presents emergency department a sudden onset of chest pain, he has known history of myocardial infarction with coronary artery disease as well as recent pulmonary embolism he is currently on Eliquis. He was hospitalized last month for pulmonary embolism. He states that chest pain came on suddenly and he was at rest he has been consuming alcohol all day. He states he was so short of breath nauseated very diaphoretic he developed a pseudoseizure afterwards EMS crew arrived they did give him 4 aspirin 3 sprays of nitro started him on a nitro drip he is off the nitro drip at this time states the nitro did help with his pain his pain is returning he received Zofran for nausea which has helped. Does have a history of pseudoseizures Chest Pain Score (Numeric/FACES): 5 - Related Data Allergies Allergy/AdvReac Type Severity Reaction Status Date / Time Penicillins Allergy Hives Verified 01/18/21 00:59 erythromycin base AdvReac Nausea Verified 01/18/21 00:59 Home Meds: Home Meds Metoprolol Succinate [Toprol XL] 12.5 mg PO DAILY 05/31/20 [History] Potassium Chloride [Klor-Con M20] 20 meq PO BID #60 tab.er 06/11/20 [Rx] QUEtiapine [SEROquel] 150 mg PO BEDTIME #45 tablet 06/11/20 [Rx] Topiramate [Topamax] 50 mg PO BID #120 tablet 06/11/20 [Rx] fluvoxaMINE [Luvox] 100 mg PO BEDTIME #30 tablet 06/11/20 [Rx] levETIRAcetam [Keppra] 1,000 mg PO BID 06/16/20 [History] Pantoprazole [ProTONIX] 40 mg PO DAILY 09/22/20 [History] Apixaban [Eliquis] 5 mg PO DAILY 01/18/21 [History] Ondansetron [Zofran ODT] 4 mg PO Q6H PRN 01/18/21 [History] Past Medical History HEENT History: Reports: Impaired Vision Cardiovascular History: Reports: Arrhythmia, Hypertension, Other (See Below) Other Cardiovascular History: svt Respiratory History: Reports: Bronchitis, Recurrent Gastrointestinal History: Reports: Diverticulosis, Pancreatitis Genitourinary History: Reports: Prostate Disorder, Renal Calculus Musculoskeletal History: Reports: Fracture Other Musculoskeletal History: dislocated shoulder Neurological History: Reports: Brain Injury, Concussion, Seizure Other Neuro History: subderal hematoma Psychiatric History: Reports: Addiction, Anxiety, Depression, Panic Attack, Psych Hospitalization(s), PTSD, Suicide Attempt Other Psychiatric History: Major depressive disorder. ETOH Endocrine/Metabolic History: Reports: Diabetes, Type II, Other (See Below) Other Endocrine/Metabolic History: type II diabetes history Hematologic History: Reports: B12 Deficiency, Folic Acid Immunologic History: Reports: Other (See Below) Other Immunologic History: anaplasmosis, lyme disease Dermatologic History: Reports: Eczema - Infectious Disease History Infectious Disease History: Reports: Chicken Pox - Past Surgical History HEENT Surgical History: Reports: None GI Surgical History: Reports: Bariatric Procedure, Cholecystectomy, Colonoscopy Musculoskeletal Surgical History: Reports: Arthroscopic Knee Social & Family History - Family History Family Medical History: No Pertinent Family History - Tobacco Use Tobacco Use Status *Q: Former Tobacco User Used Tobacco, but Quit: Yes Month/Year Tobacco Last Used: 2004 - Caffeine Use Caffeine Use: Reports: Coffee, Energy Drinks, Soda, Tea - Alcohol Use Date of Last Drink: 01/17/21 Time of Last Drink: 20:00 - Recreational Drug Use Recreational Drug Use: No - Living Situation & Occupation Living situation: Reports: with Significant Other (reports is getting divorce from in [place], living with his son.) Occupation: Employed ED ROS GENERAL - Review of Systems Review Of Systems: See Below Constitutional: Reports: Diaphoresis HEENT: Reports: No Symptoms Respiratory: Reports: Shortness of Breath Cardiovascular: Reports: Chest Pain GI/Abdominal: Reports: Nausea. Denies: Vomiting : Reports: No Symptoms ED EXAM, GENERAL - Physical Exam Exam: See Below Exam Limited By: No Limitations General Appearance: Alert, WD/WN, Anxious, Mild Distress Respiratory/Chest: No Respiratory Distress, Lungs Clear, Normal Breath Sounds, No Accessory Muscle Use, Chest Non-Tender Cardiovascular: No Murmur, Tachycardia GI/Abdominal: Soft, Non-Tender #1 Interpretation EKG Date: 01/18/21 Time: 01:20 Rhythm: NSR [place]: Normal P-Wave: Present QRS: Normal ST-T: Normal QT: Normal Comparison: NA - No Prior EKG Departure - Departure Disposition: Home, Self-Care 01 Clinical Impression: Alcoholism /alcohol abuse, Sinus tachycardia Instructions: Alcohol Abuse and Dependence Information, Adult Referrals: Baljeet Lucio MD [Primary Care Provider] - Forms: ED Department Discharge Care Plan Goals: You are going to continue to suffer significant health problems and recurring symptoms as long as you continue to consume alcohol. Sepsis Event Note (ED) - Evaluation Sepsis Screening Result: No Definite Risk <Ken Ochoa - Last Filed: 01/18/21 09:16> Course - Vital Signs Last Recorded V/S: Last Vital Signs Temp 98.2 F 01/18/21 00:56 Pulse 111 H 01/18/21 07:53 Resp 20 01/18/21 07:53 BP 123/84 01/18/21 07:53 Pulse Ox 92 L 01/18/21 07:53 - Orders/Labs/Meds Orders: Active Orders 24 hr Category Date Time Status Chest 1V Frontal [CR] Stat Exams 01/18/21 01:19 Taken EKG 12 Lead [EK] Stat Ther 01/18/21 01:19 Ordered Labs: Laboratory Tests 01/18/21 01/18/21 01/18/21 Range/Units 01:35 01:35 01:35 WBC 5.0 (4.5-11.0) K/uL RBC 5.24 (4.30-5.90) M/uL Hgb 13.6 (12.0-15.0) g/dL Hct 41.8 (40.0-54.0) % MCV 80 (80-98) fL MCH 26 L (27-31) pg MCHC 33 (32-36) % Plt Count 296 (150-400) K/uL Neut % (Auto) 56.0 (36-66) % Lymph % (Auto) 29.3 (24-44) % [place] % (Auto) 12.9 H (2-6) % Eos % (Auto) 0.6 L (2-4) % Baso % (Auto) 1.2 H (0-1) % Sodium 142 (140-148) mmol/L Potassium 3.8 (3.6-5.2) mmol/L Chloride 103 (100-108) mmol/L Carbon Dioxide 18 L (21-32) mmol/L Anion Gap 24.8 H (5.0-14.0) mmol/L BUN 4 L (7-18) mg/dL Creatinine 0.9 (0.8-1.3) mg/dL Est Cr Clr Drug Dosing 90.58 mL/min Estimated GFR (MDRD) > 60 (>60) Glucose 122 H (74-106) mg/dL Calcium 8.5 (8.5-10.1) mg/dL Total Bilirubin 0.7 (0.2-1.0) mg/dL AST 40 H (15-37) U/L ALT 52 (12-78) U/L Alkaline Phosphatase 138 H (46-116) U/L Troponin I < 0.017 (0.000-0.056) ng/mL Total Protein 6.2 L (6.4-8.2) g/dL Albumin 3.5 (3.4-5.0) g/dL Globulin 2.7 (2.3-3.5) g/dL Albumin/Globulin Ratio 1.3 (1.2-2.2) Lipase (73-393) U/L Ethyl Alcohol 179 mg/dL 01/18/21 01/18/21 Range/Units 01:48 03:45 WBC (4.5-11.0) K/uL RBC (4.30-5.90) M/uL Hgb (12.0-15.0) g/dL Hct (40.0-54.0) % MCV (80-98) fL MCH (27-31) pg MCHC (32-36) % Plt Count (150-400) K/uL Neut % (Auto) (36-66) % Lymph % (Auto) (24-44) % [place] % (Auto) (2-6) % Eos % (Auto) (2-4) % Baso % (Auto) (0-1) % Sodium (140-148) mmol/L Potassium (3.6-5.2) mmol/L Chloride (100-108) mmol/L Carbon Dioxide (21-32) mmol/L Anion Gap (5.0-14.0) mmol/L BUN (7-18) mg/dL Creatinine (0.8-1.3) mg/dL Est Cr Clr Drug Dosing mL/min Estimated GFR (MDRD) (>60) Glucose (74-106) mg/dL Calcium (8.5-10.1) mg/dL Total Bilirubin (0.2-1.0) mg/dL AST (15-37) U/L ALT (12-78) U/L Alkaline Phosphatase (46-116) U/L Troponin I < 0.017 (0.000-0.056) ng/mL Total Protein (6.4-8.2) g/dL Albumin (3.4-5.0) g/dL Globulin (2.3-3.5) g/dL Albumin/Globulin Ratio (1.2-2.2) Lipase 90 (73-393) U/L Ethyl Alcohol mg/dL Meds: Medications Discontinued Medications Generic Name Dose Route Start Last Admin Trade Name Freq PRN Reason Stop Dose Admin Diltiazem HCl 25 mg 01/18/21 02:57 01/18/21 03:02 Diltiazem 25 Mg/5 Ml Sdv IVPUSH 01/18/21 02:58 25 mg ONETIME ONE Administration Hydromorphone HCl 1 mg 01/18/21 02:41 01/18/21 02:50 Hydromorphone 1 Mg/Ml Syringe IVPUSH 01/18/21 02:42 1 mg ONETIME ONE Administration Sodium Chloride 1,000 mls @ 125 mls/hr 01/18/21 01:30 01/18/21 01:29 Normal Saline IV 125 mls/hr ASDIRECTED CAREY Administration Diltiazem HCl 100 mg/ Sodium 100 mls @ 5 mls/hr 01/18/21 03:30 01/18/21 03:44 Chloride IV 5 mg/hr TITRATE CAREY 5 mls/hr Administration Protocol 5 MG/HR Sodium Chloride 100 mls @ 4 mls/sec 01/18/21 05:13 01/18/21 05:25 Normal Saline IV 01/18/21 05:14 4 mls/sec ASDIRECTED STA Administration Iopamidol 100 ml 01/18/21 05:12 01/18/21 05:25 Iopamidol 755 Mg/Ml 100 Ml Bottle IV 01/18/21 05:13 100 ml . DIRECTED STA Administration Ketorolac Tromethamine 30 mg 01/18/21 05:14 01/18/21 05:37 Ketorolac 30 Mg/Ml Sdv IVPUSH 01/18/21 05:15 30 mg ONETIME ONE Administration Lorazepam 2 mg 01/18/21 01:50 01/18/21 01:56 Lorazepam 2 Mg/Ml Sdv IVPUSH 01/18/21 01:51 2 mg ONETIME ONE Administration Morphine Sulfate 4 mg 01/18/21 01:18 01/18/21 01:30 Morphine 4 Mg/Ml Syringe IVPUSH 01/19/21 01:19 4 mg Q10M PRN Administration Chest Pain - Re-Assessments/Exams Free Text/Narrative Re-Assessment/Exam: 01/18/21 07:45 Care turned over from Officer awaiting possible transfer for cardiology consultation. However Cardizem was stopped at 7 AM, and while patient was resting his heart rate was reasonably normal around 100, whenever he woke up and engaged in conversation it did increase to 115-125, it was it was always sinus tachycardia or sinus rhythm. His troponins were negative. This likely is just cardio toxicity due to chronic alcohol abuse. Unfortunately we were also unable to get a urine from the patient as he "could not go". Discussed this condition with his mother and she was agreeable to take him home while they try to find long-term inpatient treatment for his chronic polysubstance abuse, especially alcoholism. I do not think transfer for any type of cardiac intervention is going to be beneficial as long as he continues to consume alcohol. Departure - Departure Time of Disposition: 07:54 Sepsis Event Note (ED) - Focused Exam Vital Signs: Vital Signs Temp Pulse Resp BP Pulse Ox 01/18/21 07:53 111 H 20 123/84 92 L 01/18/21 06:20 105 H 14 119/93 H 90 L 01/18/21 05:20 99 16 127/97 H 99 01/18/21 04:50 119 H 16 116/84 96 01/18/21 04:30 116 H 17 120/85 96 01/18/21 04:10 120 H 17 114/81 96 01/18/21 03:50 125 H 16 111/81 96 01/18/21 03:30 130 H 19 117/75 95 01/18/21 03:10 132 H 19 118/80 95 01/18/21 02:50 163 H 22 H 119/82 88 L 01/18/21 02:30 146 H 21 H 118/92 H 92 L 01/18/21 02:10 136 H 14 118/86 93 L 01/18/21 01:50 122 H 19 116/89 96 01/18/21 01:32 112 H 20 138/85 97 01/18/21 00:56 98.2 F 116 H 17 137/84 97
[2021-01-18] MEDS ORDERED: Sodium Chloride 0.9% 1,000 ML IV SCH (01:30)
[2021-01-18] MEDS ORDERED: LORazepam 2 MG/ML SDV IVPUSH ONE (01:50)
[2021-01-18] MEDS ORDERED: HYDROmorphone 1 MG/ML Syringe IVPUSH ONE (02:41)
[2021-01-18] MEDS ORDERED: Diltiazem 25 MG/5 ML SDV IVPUSH ONE (02:57)
[2021-01-18] MEDS ORDERED: Diltiazem 100 MG in Sodium Chloride 0.9% 100 ML IV SCH (03:30)
[2021-01-18] MEDS ORDERED: Iopamidol 755 Mg/ML 100 ML Bottle IV STA (05:12)
[2021-01-18] MEDS ORDERED: Sodium Chloride 0.9% 100 ML IV STA (05:13)
[2021-01-18] MEDS ORDERED: Ketorolac 30 MG/ML SDV IVPUSH ONE (05:14)
--- NOTE | 2021-01-18 06:21 | CRLCT ---
For Patients: As a result of the Cures Act, medical imaging exams and procedure reports are released immediately into your electronic medical record. You may view this report before your referring provider. If you have questions, please contact your health care provider. Indication: Chest pain, history of PE Technique: Volumetric multidetector CT images of the chest were obtained after the administration of IV contrast. 100 cc Isovue 370 low osmolar intravenous contrast Comparison: None available. Findings: The thoracic inlet and thyroid gland are unremarkable. The thoracic aorta is nonaneurysmal. There is no central filling defect to suggest pulmonary embolism. There is no mediastinal, hilar or axillary adenopathy. The trachea and bronchi are well aerated without significant bronchiectasis. There is minimal basilar atelectasis versus scar. There is no dense consolidation, effusion or pneumothorax. There is no evidence of pulmonary mass or suspicious pulmonary nodule. The partially visualized upper abdomen demonstrates marked hepatic steatosis. There is postoperative change of the stomach status post gastric bypass. The thoracic vertebral body heights demonstrate somewhat age indeterminate wedge deformities the T3 and T4 superior endplates. Otherwise, the thoracic vertebral bodies are grossly preserved in satisfactory alignment. Impression: Minimal basilar atelectasis versus parenchymal scarring without evidence of dense consolidation. No evidence of pulmonary embolus. Please note that all CT scans at this facility use dose modulation, iterative reconstruction, and/or weight-based dosing when appropriate to reduce radiation dose to as low as reasonably achievable. Dictated by Karl Meredith MD @ 01/18/2021 6:18:[address] Karl Meredith @ Jan 18 2021 6:18AM
[2021-01-18 07:54] VITALS: BP 123/84; PULSE 111
--- NOTE | 2021-01-18 09:55 | CR ---
CHEST: Portable 01/18/2021 at 1:44 AM CLINICAL HISTORY:Chest pain COMPARISON:June 2020 FINDINGS: The heart size, pulmonary vascularity and hilar structures are normal. No infiltrate effusion or pneumothorax is seen. IMPRESSION: No acute cardiopulmonary process.
== END 2021-01-18 07:54 | disposition home or self-care (01) ==
LOC: JP.ED 00:44
DX: F10.20 Alcohol dependence, uncomplicated (principal); R00.0 Tachycardia, unspecified; E11.9 Type 2 diabetes mellitus without complications; I10 Essential (primary) hypertension; Z79.01 Long term (current) use of anticoagulants; Z79.899 Other long term (current) drug therapy; Z87.891 Personal history of nicotine dependence; Z88.1 Allergy status to other antibiotic agents; Z88.0 Allergy status to penicillin
CPT/HCPCS: 36415; 71045; 71275; 80053; 80307; 83690; 84484; 85025; 93005; 96365; 96366; 96375; 96376; 99285; J1170; J1885; J2060; J2270; J3490; J7030; Q9967

== ENCOUNTER 2021-01-27 03:12 | Emergency (ER) | payer MEDICAID ==
[2021-01-27] MEDS ORDERED: Aspirin 325 MG Tab.EC PO ONE (04:05)
[2021-01-27] MEDS ORDERED: Morphine 4 MG/ML Syringe IVPUSH ONE (04:05)
[2021-01-27] MEDS ORDERED: Famotidine 20 MG/2 ML SDV IV ONE (04:05)
[2021-01-27] MEDS ORDERED: Ondansetron 4 MG/2 ML SDV IVPUSH ONE (04:05)
[2021-01-27] MEDS ORDERED: Morphine 4 MG/ML Syringe ONE (04:24)
[2021-01-27] MEDS ORDERED: Ondansetron 4 MG/2 ML SDV ONE (04:24)
[2021-01-27] MEDS ORDERED: Famotidine 20 MG/2 ML SDV ONE (04:57)
[2021-01-27] MEDS ORDERED: Ibuprofen 600 MG Tab PO ONE (05:00)
[2021-01-27] MEDS ORDERED: Sodium Chloride 0.9% 1,000 ML IV ONE (05:00)
[2021-01-27] MEDS ORDERED: Ibuprofen 600 MG Tab ONE (05:04)
[2021-01-27] MEDS ORDERED: LORazepam 2 MG/ML SDV IVPUSH ONE (05:15)
[2021-01-27] MEDS ORDERED: LORazepam 2 MG/ML SDV ONE (05:23)
== END 2021-01-27 07:23 | disposition home or self-care (01) ==
LOC: JP.ED 03:12
DX: R07.89 Other chest pain (principal); E87.0 Hyperosmolality and hypernatremia; F10.20 Alcohol dependence, uncomplicated; E11.9 Type 2 diabetes mellitus without complications
CPT/HCPCS: 36415; 80048; 84484; 85027; 93005; 96374; 96375; 99285; A9270; J2060; J2270; J2405; J3490; J7030

== ENCOUNTER 2021-01-28 22:35 | Emergency (ER) | payer MEDICAID ==
[2021-01-28] MEDS ORDERED: OLANZapine 10 MG Vial IM ONE (22:49)
--- NOTE | 2021-01-28 23:01 | EDM.PDOCBH ---
ED HPI GENERAL MEDICAL PROBLEM - General Chief Complaint: Behavioral/Psych Stated Complaint: INTOXICATION Time Seen by Provider: 01/28/21 22:49 Source of Information: Reports: EMS History Limitations: Reports: Intoxication - History of Present Illness INITIAL COMMENTS - FREE TEXT/NARRATIVE: Michael is a 50-year-old male who is well-known to us presenting via [facility] for evaluation of alcohol intoxication. The patient was supposed to go to inpatient alcohol treatment at [facility] this morning and apparently when they came to pick him up to take him to the program he was already intoxicated so they declined to take him. The patient has a longstanding history of alcohol abuse. This is the third visit to the emergency room in a week and a half. [facility] was called out to the patient's residence earlier tonight after being called by 1 of Michael's friends for concern of his wellbeing. They assessed him and found him to be alert, oriented x3, and capable of making decisions. He refused transport and signed off is in no load. Michael was on the phone with his friend again and the friend became concerned because he was not acting right so the friend called EMS again and this time [facility] did not give him the option to decline as he was much more intoxicated. They in turn brought him to the ER for evaluation. Patient has been drinking vodka all day. He comes in the ER screaming but is directable. He previously had been presenting with chest pain but denies any symptoms of that today. - Related Data Allergies Allergy/AdvReac Type Severity Reaction Status Date / Time Penicillins Allergy Hives Verified 01/28/21 23:29 erythromycin base AdvReac Nausea Verified 01/28/21 23:29 Home Meds: Home Meds Metoprolol Succinate [Toprol XL] 12.5 mg PO DAILY 05/31/20 [History] Potassium Chloride [Klor-Con M20] 20 meq PO BID #60 tab.er 06/11/20 [Rx] QUEtiapine [SEROquel] 150 mg PO BEDTIME #45 tablet 06/11/20 [Rx] Topiramate [Topamax] 50 mg PO BID #120 tablet 06/11/20 [Rx] fluvoxaMINE [Luvox] 100 mg PO BEDTIME #30 tablet 06/11/20 [Rx] levETIRAcetam [Keppra] 1,000 mg PO BID 11/03/20 [History] Pantoprazole [ProTONIX] 40 mg PO DAILY 09/22/20 [History] Apixaban [Eliquis] 5 mg PO DAILY 01/18/21 [History] Ondansetron [Zofran ODT] 4 mg PO Q6H PRN 01/18/21 [History] Past Medical History HEENT History: Reports: Impaired Vision Cardiovascular History: Reports: Arrhythmia, Hypertension, Other (See Below) Other Cardiovascular History: svt Respiratory History: Reports: Bronchitis, Recurrent Gastrointestinal History: Reports: Diverticulosis, Pancreatitis Genitourinary History: Reports: Prostate Disorder, Renal Calculus Musculoskeletal History: Reports: Fracture Other Musculoskeletal History: dislocated shoulder Neurological History: Reports: Brain Injury, Concussion, Seizure Other Neuro History: subderal hematoma Psychiatric History: Reports: Addiction, Anxiety, Depression, Panic Attack, Psych Hospitalization(s), PTSD, Suicide Attempt Other Psychiatric History: Major depressive disorder. ETOH Endocrine/Metabolic History: Reports: Diabetes, Type II, Other (See Below) Other Endocrine/Metabolic History: type II diabetes history Hematologic History: Reports: B12 Deficiency, Folic Acid Immunologic History: Reports: Other (See Below) Other Immunologic History: anaplasmosis, lyme disease Dermatologic History: Reports: Eczema - Infectious Disease History Infectious Disease History: Reports: Chicken Pox - Past Surgical History HEENT Surgical History: Reports: None GI Surgical History: Reports: Bariatric Procedure, Cholecystectomy, Colonoscopy Musculoskeletal Surgical History: Reports: Arthroscopic Knee Social & Family History - Family History Family Medical History: No Pertinent Family History - Caffeine Use Caffeine Use: Reports: Coffee, Energy Drinks, Soda, Tea - Living Situation & Occupation Living situation: Reports: with Significant Other (reports is getting divorce from in [place], living with his son.) Occupation: Employed ED ROS GENERAL - Review of Systems Review Of Systems: Unable To Obtain Reason Not Obtained: Patient is intoxicated and is unsure why he is here. Constitutional: Reports: No Symptoms HEENT: Reports: No Symptoms Respiratory: Reports: No Symptoms Cardiovascular: Reports: No Symptoms Endocrine: Reports: No Symptoms GI/Abdominal: Reports: No Symptoms : Reports: No Symptoms Musculoskeletal: Reports: No Symptoms Skin: Reports: No Symptoms Neurological: Reports: Confusion Psychiatric: Reports: Agitation, Anxiety Hematologic/Lymphatic: Reports: No Symptoms Immunologic: Reports: No Symptoms ED EXAM, BEHAVIORAL HEALTH - Physical Exam Exam: See Below Exam Limited By: Intoxication General Appearance: Anxious, Moderate Distress Eye Exam: Bilateral Eye: EOMI, PERRL Throat/Mouth: Normal Inspection, Normal Oropharynx, Normal Voice, No Airway Compromise Head: Atraumatic, Normocephalic Neck: Normal Inspection, Supple Respiratory/Chest: No Respiratory Distress, Lungs Clear, Normal Breath Sounds Cardiovascular: Normal Peripheral Pulses, Regular Rate, Rhythm, No Murmur GI/Abdominal: Normal Bowel Sounds, Soft, Non-Tender Back Exam: Normal Inspection, Full Range of Motion Extremities: Normal Inspection, Normal Range of Motion Neurological: CN II-XII Intact, No Motor/Sensory Deficits Psychiatric: Agitated, Disoriented Skin Exam: Warm, Dry, Intact, Normal color COURSE, BEHAVIORAL HEALTH COMP - Course Vital Signs: Last Vital Signs Temp 36.4 C 01/28/21 23:18 Pulse 96 01/28/21 23:18 Resp 18 01/28/21 23:18 BP 137/90 01/28/21 23:18 Pulse Ox 96 01/28/21 23:18 Orders, Labs, Meds: Laboratory Tests 01/28/21 01/28/21 01/28/21 Range/Units 22:49 22:49 23:03 WBC 6.3 (4.5-11.0) K/uL RBC 4.99 (4.30-5.90) M/uL Hgb 12.6 (12.0-15.0) g/dL Hct 41.0 (40.0-54.0) % MCV 82 (80-98) fL MCH 25 L (27-31) pg MCHC 31 L (32-36) % Plt Count 268 (150-400) K/uL Sodium (140-148) mmol/L Potassium (3.6-5.2) mmol/L Chloride (100-108) mmol/L Carbon Dioxide (21-32) mmol/L Anion Gap (5.0-14.0) mmol/L BUN (7-18) mg/dL Creatinine (0.8-1.3) mg/dL Est Cr Clr Drug Dosing Estimated GFR (MDRD) (>60) Glucose (74-106) mg/dL Calcium (8.5-10.1) mg/dL Total Bilirubin (0.2-1.0) mg/dL AST (15-37) U/L ALT (12-78) U/L Alkaline Phosphatase (46-116) U/L Total Protein (6.4-8.2) g/dL Albumin (3.4-5.0) g/dL Globulin (2.3-3.5) g/dL Albumin/Globulin Ratio (1.2-2.2) Lipase (73-393) U/L Urine Color Yellow (YELLOW) Urine Appearance Clear (CLEAR) Urine pH 5.5 (5.0-8.0) Ur Specific [place] <= 1.005 L (1.008-1.030) Urine Protein Negative (NEGATIVE) mg/dL Urine Glucose (UA) Negative (NEGATIVE) mg/dL Urine Ketones Negative (NEGATIVE) mg/dL Urine Occult Blood Negative (NEGATIVE) Urine Nitrite Negative (NEGATIVE) Urine Bilirubin Negative (NEGATIVE) Urine Urobilinogen 0.2 (0.2-1.0) EU/dL Ur Leukocyte Esterase Negative (NEGATIVE) Urine RBC Not seen (0-5) Urine WBC Not seen (0-5) Ur Epithelial Cells Not seen Amorphous Sediment Not seen Urine Bacteria Not seen Urine Mucus Not seen Urine Opiates Screen Negative (NEGATIVE) Ur Oxycodone Screen Negative (NEGATIVE) Urine Methadone Screen Negative (NEGATIVE) Ur Propoxyphene Screen Negative (NEGATIVE) Ur Barbiturates Screen Negative (NEGATIVE) Ur Tricyclics Screen Negative (NEGATIVE) Ur Phencyclidine Scrn Negative (NEGATIVE) Ur Amphetamine Screen Negative (NEGATIVE) U Methamphetamines Scrn Negative (NEGATIVE) Urine MDMA Screen Negative (NEGATIVE) U Benzodiazepines Scrn Negative (NEGATIVE) U Cocaine Metab Screen Negative (NEGATIVE) U Marijuana (THC) Screen Negative (NEGATIVE) Ethyl Alcohol mg/dL 01/28/21 01/28/21 Range/Units 23:03 23:03 WBC (4.5-11.0) K/uL RBC (4.30-5.90) M/uL Hgb (12.0-15.0) g/dL Hct (40.0-54.0) % MCV (80-98) fL MCH (27-31) pg MCHC (32-36) % Plt Count (150-400) K/uL Sodium 143 (140-148) mmol/L Potassium 3.7 (3.6-5.2) mmol/L Chloride 105 (100-108) mmol/L Carbon Dioxide 22 (21-32) mmol/L Anion Gap 16.0 H (5.0-14.0) mmol/L BUN 11 (7-18) mg/dL Creatinine 0.8 (0.8-1.3) mg/dL Est Cr Clr Drug Dosing TNP Estimated GFR (MDRD) > 60 (>60) Glucose 106 (74-106) mg/dL Calcium 7.3 L (8.5-10.1) mg/dL Total Bilirubin 0.3 D (0.2-1.0) mg/dL AST 70 H (15-37) U/L ALT 89 H (12-78) U/L Alkaline Phosphatase 174 H (46-116) U/L Total Protein 6.0 L (6.4-8.2) g/dL Albumin 3.2 L (3.4-5.0) g/dL Globulin 2.8 (2.3-3.5) g/dL Albumin/Globulin Ratio 1.1 L (1.2-2.2) Lipase 335 (73-393) U/L Urine Color (YELLOW) Urine Appearance (CLEAR) Urine pH (5.0-8.0) Ur Specific [place] (1.008-1.030) Urine Protein (NEGATIVE) mg/dL Urine Glucose (UA) (NEGATIVE) mg/dL Urine Ketones (NEGATIVE) mg/dL Urine Occult Blood (NEGATIVE) Urine Nitrite (NEGATIVE) Urine Bilirubin (NEGATIVE) Urine Urobilinogen (0.2-1.0) EU/dL Ur Leukocyte Esterase (NEGATIVE) Urine RBC (0-5) Urine WBC (0-5) Ur Epithelial Cells Amorphous Sediment Urine Bacteria Urine Mucus Urine Opiates Screen (NEGATIVE) Ur Oxycodone Screen (NEGATIVE) Urine Methadone Screen (NEGATIVE) Ur Propoxyphene Screen (NEGATIVE) Ur Barbiturates Screen (NEGATIVE) Ur Tricyclics Screen (NEGATIVE) Ur Phencyclidine Scrn (NEGATIVE) Ur Amphetamine Screen (NEGATIVE) U Methamphetamines Scrn (NEGATIVE) Urine MDMA Screen (NEGATIVE) U Benzodiazepines Scrn (NEGATIVE) U Cocaine Metab Screen (NEGATIVE) U Marijuana (THC) Screen (NEGATIVE) Ethyl Alcohol 443 mg/dL Medications Discontinued Medications Generic Name Dose Route Start Last Admin Trade Name Freq PRN Reason Stop Dose Admin Olanzapine 10 mg 01/28/21 22:49 01/28/21 23:09 Olanzapine 10 Mg Vial IM 01/28/21 22:50 10 mg ONETIME ONE Administration Re-Assessment/Re-Exam: I reviewed the patient's labs showing a normal CBC and comprehensive metabolic panel except for an anion gap of 16. His lipase is normal. His alcohol level is 443. His urinalysis is unremarkable and his urine drug screen is negative. Patient was given olanzapine 10 mg IM and has been resting comfortably. The plan is to have him sober up overnight and call his mother in the morning to retrieve him and hopefully take him to the inpatient alcohol program at [facility]. Discharge vs Psych Eval/Treatment:: 01/29/21 05:34 patient's mother has come to the ER to retrieve her son. He is discharged into her care. 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, PTSD (post-traumatic stress disorder) Alcohol intoxication Qualifiers: Complication of substance-induced condition: uncomplicated Qualified Code(s): F10.920 - Alcohol use, unspecified with intoxication, uncomplicated - Discharge Information Referrals: PCP,None [Primary Care Provider] - Forms: ED Department Discharge Sepsis Event Note (ED) - Focused Exam Vital Signs: Vital Signs Temp Pulse Resp BP Pulse Ox 01/28/21 23:18 36.4 C 96 18 137/90 96 - Problem List & Annotations (1) Alcohol intoxication SNOMED Code(s): 26736928 Code(s): F10.929 - ALCOHOL USE, UNSPECIFIED WITH INTOXICATION, UNSPECIFIED Status: Acute Priority: High Current Visit: Yes Qualifiers: Complication of substance-induced condition: uncomplicated Qualified Code(s): F10.920 - Alcohol use, unspecified with intoxication, uncomplicated (2) Noncompliance with medication regimen SNOMED Code(s): 580570640 Code(s): Z91.14 - PATIENT'S OTHER NONCOMPLIANCE WITH MEDICATION REGIMEN Status: Chronic Priority: High Current Visit: Yes (3) Alcoholism /alcohol abuse SNOMED Code(s): 8539573 Code(s): F10.20 - ALCOHOL DEPENDENCE, UNCOMPLICATED Status: Chronic Priority: High Current Visit: Yes (4) PTSD (post-traumatic stress disorder) SNOMED Code(s): 64651982 Code(s): F43.10 - POST-TRAUMATIC STRESS DISORDER, UNSPECIFIED Status: Chronic Current Visit: Yes (5) SONAM (generalized anxiety disorder) SNOMED Code(s): 07772724 Code(s): F41.1 - GENERALIZED ANXIETY DISORDER Status: Chronic Current Visit: Yes (6) 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
[2021-01-28 23:19] VITALS: BP 137/90; PULSE 96
== END 2021-01-29 05:43 | disposition home or self-care (01) ==
LOC: JP.ED 22:35
DX: F10.129 Alcohol abuse with intoxication, unspecified (principal); F41.1 Generalized anxiety disorder; F43.10 Post-traumatic stress disorder, unspecified; F60.81 Narcissistic personality disorder; Z91.19 Patient's noncompliance with other medical treatment and regimen; I10 Essential (primary) hypertension; E11.9 Type 2 diabetes mellitus without complications; Z88.0 Allergy status to penicillin; Z88.1 Allergy status to other antibiotic agents
CPT/HCPCS: 36415; 80053; 80305; 80307; 81001; 83690; 85027; 96372; 99284; J3490

== ENCOUNTER 2021-01-29 13:55 | Emergency (ER) | payer MEDICAID ==
--- NOTE | 2021-01-29 14:18 | EDM.PDOC ---
ED HPI GENERAL MEDICAL PROBLEM - General Chief Complaint: Head Injury Stated Complaint: MEDICAL [facility] Time Seen by Provider: 01/29/21 14:00 Source of Information: Reports: Patient, EMS History Limitations: Reports: Altered Mental Status, Intoxication - History of Present Illness INITIAL COMMENTS - FREE TEXT/NARRATIVE: Michael is a 50 year old male whom was brought to the [place] ER via EMS for evaluation of possible seizure and fall with possible head lacerations. Patient was at a local pawn shop to purchase back his belongings when he left the pawn shop. Michael was reported to fall striking his head on a parked car resulting in a scalp laceration and possible head injury. Michael is well known to local EMS, Police and ER staff due to frequent visits for intoxication concerns. Patient was in the ER last night and discharged early this am to the care of his mother. Overnight ER providers note was reviewed in additional to discharge plan including alcohol treatment program in [facility]. - Related Data Allergies Allergy/AdvReac Type Severity Reaction Status Date / Time Penicillins Allergy Hives Verified 01/29/21 14:17 erythromycin base AdvReac Nausea Verified 01/29/21 14:17 Home Meds: Home Meds Metoprolol Succinate [Toprol XL] 12.5 mg PO DAILY 05/31/20 [History] Potassium Chloride [Klor-Con M20] 20 meq PO BID #60 tab.er 06/11/20 [Rx] QUEtiapine [SEROquel] 150 mg PO BEDTIME #45 tablet 06/11/20 [Rx] Topiramate [Topamax] 50 mg PO BID #120 tablet 06/11/20 [Rx] fluvoxaMINE [Luvox] 100 mg PO BEDTIME #30 tablet 06/11/20 [Rx] levETIRAcetam [Keppra] 1,000 mg PO BID 06/16/20 [History] Pantoprazole [ProTONIX] 40 mg PO DAILY 09/22/20 [History] Apixaban [Eliquis] 5 mg PO DAILY 01/18/21 [History] Ondansetron [Zofran ODT] 4 mg PO Q6H PRN 01/18/21 [History] Past Medical History HEENT History: Reports: Impaired Vision Cardiovascular History: Reports: Arrhythmia, Hypertension, Other (See Below) Other Cardiovascular History: svt Respiratory History: Reports: Bronchitis, Recurrent Gastrointestinal History: Reports: Diverticulosis, Pancreatitis Genitourinary History: Reports: Prostate Disorder, Renal Calculus Musculoskeletal History: Reports: Fracture Other Musculoskeletal History: dislocated shoulder Neurological History: Reports: Brain Injury, Concussion, Seizure Other Neuro History: subderal hematoma Psychiatric History: Reports: Addiction, Anxiety, Depression, Panic Attack, Psych Hospitalization(s), PTSD, Suicide Attempt Other Psychiatric History: Major depressive disorder. ETOH Endocrine/Metabolic History: Reports: Diabetes, Type II, Other (See Below) Other Endocrine/Metabolic History: type II diabetes history Hematologic History: Reports: B12 Deficiency, Folic Acid Immunologic History: Reports: Other (See Below) Other Immunologic History: anaplasmosis, lyme disease Dermatologic History: Reports: Eczema - Infectious Disease History Infectious Disease History: Reports: Chicken Pox - Past Surgical History HEENT Surgical History: Reports: None GI Surgical History: Reports: Bariatric Procedure, Cholecystectomy, Colonoscopy Musculoskeletal Surgical History: Reports: Arthroscopic Knee Social & Family History - Family History Family Medical History: No Pertinent Family History - Caffeine Use Caffeine Use: Reports: Coffee, Energy Drinks, Soda, Tea - Living Situation & Occupation Living situation: Reports: with Significant Other (reports is getting divorce from in [place], living with his son.) Occupation: Employed ED ROS GENERAL - Review of Systems Review Of Systems: Comprehensive ROS is negative, except as noted in HPI. ED EXAM, HEAD INJURY - Physical Exam Exam: See Below Head: Scalp Abrasions (right parietal scalp), Scalp Hematoma (right parietal scalp), Scalp Tenderness (right parietal scalp). No: Scalp Lacerations Nexus Criteria: Evidence of Intoxication, Altered Level of Consciousness Eyes: Bilateral Eye: EOMI, PERRL Ears: Normal Canal, Hearing Grossly Normal Nose: Normal Inspection Throat/Mouth: Normal Voice, No Airway Compromise Neck: Other (Unable to clear due to head injury and alochol intoxication) Respiratory: No Respiratory Distress, Normal Breath Sounds Cardiovascular: Normal Peripheral Pulses GI/Abdominal Exam: Soft, Non-Tender Extremities: Normal Inspection, Normal Range of Motion Neurologic: No Motor/Sensory Deficits, Oriented x 3, Depressed Affect Course - Vital Signs Last Recorded V/S: Last Vital Signs Temp 36.3 C 01/29/21 14:36 Pulse 100 01/29/21 14:36 Resp 14 01/29/21 14:36 BP 142/78 H 01/29/21 14:36 Pulse Ox 97 01/29/21 14:36 - Orders/Labs/Meds Orders: Active Orders 24 hr Category Date Time Status Ambulate [RC] PER UNIT ROUTINE Care 01/29/21 15:03 Ordered Dressing Change [Wound Care] [RC] INTERMITTENT Care 01/29/21 14:33 Active Bacitracin [Bacitracin Oint 1 GM] Med 01/29/21 15:04 Once 1 dose TOP ONETIME ONE Medication Orders Bacitracin (Bacitracin Oint 1 Gm U/D Packet) 1 dose TOP ONETIME ONE Stop: 01/29/21 15:05 Labs: Laboratory Tests 01/29/21 01/29/21 Range/Units 14:07 14:22 Sodium 138 L (140-148) mmol/L Potassium 4.0 (3.6-5.2) mmol/L Chloride 102 (100-108) mmol/L Carbon Dioxide 21 (21-32) mmol/L Anion Gap 19.0 H (5.0-14.0) mmol/L BUN 7 (7-18) mg/dL Creatinine 1.0 (0.8-1.3) mg/dL Est Cr Clr Drug Dosing 81.52 mL/min Estimated GFR (MDRD) > 60 (>60) Glucose 127 H (74-106) mg/dL Calcium 7.9 L (8.5-10.1) mg/dL Total Bilirubin 0.5 D (0.2-1.0) mg/dL AST 60 H (15-37) U/L ALT 74 (12-78) U/L Alkaline Phosphatase 149 H (46-116) U/L Total Protein 5.5 L (6.4-8.2) g/dL Albumin 3.1 L (3.4-5.0) g/dL Globulin 2.4 (2.3-3.5) g/dL Albumin/Globulin Ratio 1.3 (1.2-2.2) Ethyl Alcohol < 3 mg/dL Meds: Medications Generic Name Dose Route Start Last Admin Trade Name Freq PRN Reason Stop Dose Admin Bacitracin 1 dose 01/29/21 15:04 Bacitracin Oint 1 Gm U/D Packet TOP 01/29/21 15:05 ONETIME ONE Discontinued Medications Generic Name Dose Route Start Last Admin Trade Name Freq PRN Reason Stop Dose Admin Acetaminophen 650 mg 01/29/21 14:34 01/29/21 14:44 Acetaminophen 325 Mg Tab PO 01/29/21 14:35 650 mg NOW ONE Administration - Radiology Interpretation Free Text/Narrative:: CT Head and Cervical Spine images read by radiology, report reviewed and discussed with patient during ER visit. Radiologist noted No acute concerning findings with previous surgical (craniotomy noted). Mother arrived to take patient home at this time with close monitoring at home for post concussive symptoms and consideration of Alcohol treatment program admission next week. Departure - Departure Time of Disposition: 15:08 Disposition: Home, Self-Care 01 Clinical Impression: Concussion with less than 1 hour loss of consciousness, Scalp abrasion, Left parietal scalp hematoma - Discharge Information Instructions: Head Injury, Adult, Facial or Scalp Contusion, Concussion, Adult, Post-Concussion Syndrome, [id number], Abrasion Referrals: Baljeet Lucio MD [Physician] - Forms: ED Department Discharge Additional Instructions: Recommend follow-up next week regarding head injury, concussion and possible post concussion symptoms which may not began until 2-3 days after injury. Post concussion symptoms may be more severe due to previous head trauma and injuries. Sepsis Event Note (ED) - Focused Exam Vital Signs: Vital Signs Temp Pulse Resp BP Pulse Ox 01/29/21 14:36 36.3 C 100 14 142/78 H 97 - My Orders Last 24 Hours: My Active Orders 01/29/21 14:33 Dressing Change [Wound Care] [RC] INTERMITTENT 01/29/21 15:03 Ambulate [RC] PER UNIT ROUTINE 01/29/21 15:04 Bacitracin [Bacitracin Oint 1 GM] 1 dose TOP ONETIME ONE - Assessment/Plan Last 24 Hours: My Active Orders 01/29/21 14:33 Dressing Change [Wound Care] [RC] INTERMITTENT 01/29/21 15:03 Ambulate [RC] PER UNIT ROUTINE 01/29/21 15:04 Bacitracin [Bacitracin Oint 1 GM] 1 dose TOP ONETIME ONE
[2021-01-29] MEDS ORDERED: Acetaminophen 325 MG Tab PO ONE (14:34)
[2021-01-29 14:38] VITALS: BP 142/78; PULSE 100
--- NOTE | 2021-01-29 14:50 | CT ---
Head wo Cont CLINICAL HISTORY: Fall, head injury COMPARISON: August 2020 TECHNIQUE: Transverse scans were obtained from the base of the skull through the vertex without IV contrast on a multislice, multidetector CT scanner. Auto dosage reduction and iterative reconstruction techniques employed. FINDINGS: Patient had a previous right parietal craniotomy. No focal abnormal parenchymal density is identified There is no mass effect, hemorrhage, or extraaxial collection. The basal cisterns and sulci over the convexities are normal. The ventricles are mildly prominent but similar to prior study.. IMPRESSION: Previous right craniotomy No acute intracranial findings
--- NOTE | 2021-01-29 14:55 | CT ---
Cervical Spine wo Cont CLINICAL HISTORY: Fall TECHNIQUE: Multiple CT sections were taken through the cervical spine in the transaxial projection. Coronal and sagittal views were reconstructed. Images were viewed at bone as well as soft tissue windows on a digital workstation. Auto dosage reduction and iterative reconstruction techniques employed. FINDINGS: Vertebral body heights are maintained. There is some mild disc space narrowing in the mid lower cervical spine. There is some minimal spondylosis at C3-4. Alignment is maintained. Pedicles appear intact. Spinous and transverse processes appear intact. IMPRESSION: No fracture or subluxation
[2021-01-29] MEDS ORDERED: Bacitracin Oint 1 GM U/D Packet TOP ONE (15:04)
== END 2021-01-29 15:55 | disposition home or self-care (01) ==
LOC: JP.ED 13:55
DX: S06.0X1A Concussion with loss of consciousness of 30 minutes or less, initial encounter (principal); S00.03XA Contusion of scalp, initial encounter; I10 Essential (primary) hypertension; E11.9 Type 2 diabetes mellitus without complications; Z88.1 Allergy status to other antibiotic agents; Z88.0 Allergy status to penicillin; Z79.01 Long term (current) use of anticoagulants; Z79.899 Other long term (current) drug therapy; W18.09XA Striking against other object with subsequent fall, initial encounter
CPT/HCPCS: 36415; 70450; 72125; 80053; 80307; 99283; 99284; A9270

== ENCOUNTER 2021-01-30 21:08 | Emergency (ER) | payer MEDICAID ==
[2021-01-30 21:10] VITALS: BP 158/111; PULSE 143
--- NOTE | 2021-01-30 21:17 | EDM.PDOCBH ---
ED HPI GENERAL MEDICAL PROBLEM - General Chief Complaint: Behavioral/Psych Stated Complaint: MEDICAL Time Seen by Provider: 01/30/21 21:15 Source of Information: Reports: Patient, EMS History Limitations: Reports: No Limitations - History of Present Illness INITIAL COMMENTS - FREE TEXT/NARRATIVE: 50-year-old male brought in by ambulance because he was holding a rifle to his chin and threatening suicide. He has been in the emergency room 3 times in the last 3 days for alcohol intoxication, head injury, seizure, or some other reason. He has not had alcohol in the last 48 hours, tonight he was feeling anxious and apparently threatened to hurt himself. His significant other now has the rifle locked away, he no longer feels like he would hurt himself but feels he needs some help with withdrawal symptoms that keep him from drinking. He is scheduled to be admitted for long-term treatment on Monday morning, 2 days from now. Onset: Unknown/Unsure Associated Symptoms: Reports: Other (Anxiety, tremor, alcohol withdrawal) - Related Data Allergies Allergy/AdvReac Type Severity Reaction Status Date / Time Penicillins Allergy Hives Verified 01/29/21 14:17 erythromycin base AdvReac Nausea Verified 01/29/21 14:17 Home Meds: Home Meds Metoprolol Succinate [Toprol XL] 12.5 mg PO DAILY 05/31/20 [History] Potassium Chloride [Klor-Con M20] 20 meq PO BID #60 tab.er 06/11/20 [Rx] QUEtiapine [SEROquel] 150 mg PO BEDTIME #45 tablet 06/11/20 [Rx] Topiramate [Topamax] 50 mg PO BID #120 tablet 06/11/20 [Rx] fluvoxaMINE [Luvox] 100 mg PO BEDTIME #30 tablet 06/11/20 [Rx] levETIRAcetam [Keppra] 1,000 mg PO BID 06/16/20 [History] Pantoprazole [ProTONIX] 40 mg PO DAILY 09/22/20 [History] Apixaban [Eliquis] 5 mg PO DAILY 01/18/21 [History] Ondansetron [Zofran ODT] 4 mg PO Q6H PRN 01/18/21 [History] Tamsulosin HCl [Flomax] 1 tab PO DAILY 01/30/21 [History] Past Medical History HEENT History: Reports: Impaired Vision Cardiovascular History: Reports: Arrhythmia, Hypertension, Other (See Below) Other Cardiovascular History: svt Respiratory History: Reports: Bronchitis, Recurrent Gastrointestinal History: Reports: Diverticulosis, Pancreatitis Genitourinary History: Reports: Prostate Disorder, Renal Calculus Musculoskeletal History: Reports: Fracture Other Musculoskeletal History: dislocated shoulder Neurological History: Reports: Brain Injury, Concussion, Seizure Other Neuro History: subderal hematoma Psychiatric History: Reports: Addiction, Anxiety, Depression, Panic Attack, Psych Hospitalization(s), PTSD, Suicide Attempt Other Psychiatric History: Major depressive disorder. ETOH Endocrine/Metabolic History: Reports: Diabetes, Type II, Other (See Below) Other Endocrine/Metabolic History: type II diabetes history Hematologic History: Reports: B12 Deficiency, Folic Acid Immunologic History: Reports: Other (See Below) Other Immunologic History: anaplasmosis, lyme disease Dermatologic History: Reports: Eczema - Infectious Disease History Infectious Disease History: Reports: Chicken Pox - Past Surgical History HEENT Surgical History: Reports: None GI Surgical History: Reports: Bariatric Procedure, Cholecystectomy, Colonoscopy Musculoskeletal Surgical History: Reports: Arthroscopic Knee Social & Family History - Family History Family Medical History: No Pertinent Family History - Caffeine Use Caffeine Use: Reports: Coffee, Energy Drinks, Soda, Tea - Living Situation & Occupation Living situation: Reports: with Significant Other (reports is getting divorce from in [place], living with his son.) Occupation: Employed ED ROS GENERAL - Review of Systems Review Of Systems: See Below Constitutional: Reports: Malaise. Denies: Fever, Chills HEENT: Denies: Vision Change Respiratory: Denies: Shortness of Breath Cardiovascular: Denies: Chest Pain GI/Abdominal: Reports: Nausea. Denies: Vomiting Skin: Denies: Bruising Neurological: Reports: Seizure, Tremors. Denies: Headache Psychiatric: Reports: Suicidal Ideation. Denies: Hallucinations (Patient is not complaining of hallucinations) ED EXAM, BEHAVIORAL HEALTH - Physical Exam Exam: See Below Exam Limited By: No Limitations General Appearance: Alert, No Apparent Distress, Anxious, Other (Patient does not appear to be intoxicated, is thinking clearly) Eye Exam: Bilateral Eye: Normal Inspection Head: Atraumatic Neck: Non-Tender Respiratory/Chest: Lungs Clear Cardiovascular: Regular Rate, Rhythm, Tachycardia GI/Abdominal: Non-Tender Extremities: Normal Inspection. No: Pedal Edema Neurological: Alert, Oriented x 3 Psychiatric: Restless Skin Exam: Warm, Dry COURSE, BEHAVIORAL HEALTH COMP - Course Vital Signs: Last Vital Signs Temp 98.1 F 01/30/21 21:18 Pulse 143 H 01/30/21 21:18 Resp 20 01/30/21 21:18 BP 158/111 H 01/30/21 21:18 Pulse Ox 95 01/30/21 21:18 Orders, Labs, Meds: Medications Discontinued Medications Generic Name Dose Route Start Last Admin Trade Name Brook PRN Reason Stop Dose Admin Lorazepam 1 mg 01/30/21 21:53 01/30/21 22:01 Lorazepam 1 Mg Tab PO 01/30/21 21:54 1 mg ONETIME ONE Administration Re-Assessment/Re-Exam: Patient is no longer suicidal but concerned he is going to start drinking to stop his withdrawal symptoms. He is quite tachycardic, moderately hypertensive so was given 1 mg of Ativan and 10 more doses of 1 mg Ativan to take every 4-6 hours which will be dispensed by his significant other. He understands that this is absolutely contingent on him going into treatment Monday as scheduled. Departure - Departure Time of Disposition: 22:11 Disposition: Home, Self-Care 01 Clinical Impression: Anxiety Alcohol withdrawal Qualifiers: Complication of substance-induced condition: uncomplicated Qualified Code(s): F10.230 - Alcohol dependence with withdrawal, uncomplicated Depression Qualifiers: Depression Type: other depression Qualified Code(s): F32.89 - Other specified depressive episodes - Discharge Information Instructions: Alcohol Withdrawal Syndrome, [id number] Referrals: PCP,None [Primary Care Provider] - Forms: ED Department Discharge Care Plan Goals: Take Ativan up to 4 times a day for withdrawal symptoms to avoid restarting al cohol. Go into treatment on Monday as planned. Continue your other medications Sepsis Event Note (ED) - Focused Exam Vital Signs: Vital Signs Temp Pulse Resp BP Pulse Ox 01/30/21 21:18 98.1 F 143 H 20 158/111 H 95 01/30/21 21:09 98.1 F 143 H 20 158/111 H 95
[2021-01-30] MEDS ORDERED: LORazepam 1 MG Tab PO ONE (21:53)
== END 2021-01-30 22:12 | disposition home or self-care (01) ==
LOC: JP.ED 21:08
DX: F32.89 Other specified depressive episodes (principal); F41.9 Anxiety disorder, unspecified; F10.230 Alcohol dependence with withdrawal, uncomplicated; I10 Essential (primary) hypertension; E11.9 Type 2 diabetes mellitus without complications; Z79.01 Long term (current) use of anticoagulants; Z88.0 Allergy status to penicillin; Z88.1 Allergy status to other antibiotic agents
CPT/HCPCS: 99283; 99284; A9270-GY

== ENCOUNTER 2021-10-18 12:12 | Observation (INO) | payer MEDICAID ==
[2021-10-18] MEDS ORDERED: Sodium Chloride 0.9% 10 ML Syringe FLUSH PRN (12:41)
[2021-10-18] MEDS ORDERED: LORazepam 2 MG/ML SDV IVPUSH ONE (13:02)
[2021-10-18] MEDS ORDERED: OLANZapine 10 MG Vial ONE (13:03)
[2021-10-18] MEDS ORDERED: Haloperidol Lactate 5 MG/ML SDV IVPUSH ONE (13:03)
[2021-10-18] MEDS ORDERED: Haloperidol Lactate 5 MG/ML SDV ONE (13:05)
[2021-10-18] MEDS ORDERED: Sodium Chloride 0.9% 1,000 ML IV SCH (15:00)
[2021-10-18] MEDS ORDERED: LORazepam 2 MG/ML SDV IVPUSH PRN (15:14)
[2021-10-18] MEDS ORDERED: Magnesium Hydroxide 400 MG/5 ML Susp 30 ML Cup PO PRN (15:14)
[2021-10-18] MEDS ORDERED: Ibuprofen 600 MG Tab PO PRN (15:14)
[2021-10-18] MEDS ORDERED: Acetaminophen 325 MG Tab PO PRN (15:14)
[2021-10-18] MEDS ORDERED: Ondansetron 4 MG/2 ML SDV IV PRN (15:14)
[2021-10-18] MEDS ORDERED: LORazepam 0.5 MG Tab PO PRN (15:14)
[2021-10-18] MEDS ORDERED: Ondansetron 4 MG Tab.DIS PO PRN (15:14)
[2021-10-18] MEDS ORDERED: MVI, Adult with Vitamin K 10 ML, Thiamine 100 MG, Folic Acid 1 MG, Magnesium Sulfate 2 ... IV ONE ×5 (15:14)
[2021-10-18] MEDS ORDERED: LORazepam 2 MG/ML SDV IV SCH (15:15)
[2021-10-18] MEDS ORDERED: LORazepam 1 MG Tab PO SCH (15:15)
[2021-10-18] MEDS ORDERED: Metoprolol Tartrate 25 MG Tab PO ONE (17:30)
[2021-10-18] MEDS: levETIRAcetam 250 MG Tab PO SCH (20:10)
[2021-10-18] MEDS: hydrOXYzine HCl 25 MG Tab PO PRN (20:10)
[2021-10-18] MEDS: Metoprolol Tartrate 25 MG Tab PO SCH (20:10)
[2021-10-18] MEDS: OXcarbazepine 300 MG Tab PO SCH (20:10)
[2021-10-18] MEDS ORDERED: Melatonin 3 MG Tab PO SCH (21:00)
[2021-10-18] MEDS ORDERED: QUEtiapine 100 MG Tab PO SCH (21:00)
[2021-10-19] MEDS: levETIRAcetam 250 MG Tab PO SCH (08:09)
[2021-10-19] MEDS: hydrOXYzine HCl 25 MG Tab PO PRN (08:11)
[2021-10-19] MEDS ORDERED: Potassium Chloride 20 MEQ Tab.ER PO ONE (08:30)
[2021-10-19] MEDS: Metoprolol Tartrate 25 MG Tab PO SCH (08:34)
[2021-10-19] MEDS: OXcarbazepine 300 MG Tab PO SCH (08:36)
[2021-10-19] MEDS ORDERED: Folic Acid 1 MG Tab PO SCH (09:00)
[2021-10-19] MEDS ORDERED: Thiamine 100 MG Tab PO SCH (09:00)
[2021-10-19 11:34] VITALS: BP 112/71; PULSE 79
== END 2021-10-19 11:01 | disposition home or self-care (01) ==
LOC: JP.ED 12:12 → JP.ICU 15:01
PROVIDERS: ADMIT Internal Medicine; ATTEND Internal Medicine
DX: F10.120 Alcohol abuse with intoxication, uncomplicated (principal); F10.150 Alcohol abuse with alcohol-induced psychotic disorder with delusions; F10.159 Alcohol abuse with alcohol-induced psychotic disorder, unspecified; F32.9 Major depressive disorder, single episode, unspecified; H54.7 Unspecified visual loss; I10 Essential (primary) hypertension; F41.1 Generalized anxiety disorder; R56.9 Unspecified convulsions; E11.9 Type 2 diabetes mellitus without complications; F17.210 Nicotine dependence, cigarettes, uncomplicated; Z88.0 Allergy status to penicillin; Z88.1 Allergy status to other antibiotic agents; Z90.49 Acquired absence of other specified parts of digestive tract; Z98.890 Other specified postprocedural states; Z79.899 Other long term (current) drug therapy; Z79.01 Long term (current) use of anticoagulants; F43.10 Post-traumatic stress disorder, unspecified; Z87.820 Personal history of traumatic brain injury; Z91.81 History of falling; Y90.8 Blood alcohol level of 240 mg/100 ml or more
CPT/HCPCS: 36415; 70450; 80053; 80305-QW; 80307; 85025; 96365; 96366; 96374; 96375; 99284; 99285-25; A9270-GY; G0378; J1630; J2060; J2405; J3411; J3475; J3490; J7030

== ENCOUNTER 2021-10-25 11:13 | Emergency (ER) | payer MEDICAID ==
[2021-10-25] MEDS ORDERED: LORazepam 1 MG Tab PO ONE ×3 (12:29→16:20)
[2021-10-25] MEDS ORDERED: Ondansetron 4 MG Tab.DIS PO ONE (12:30)
[2021-10-25] MEDS: Sodium Chloride 0.9% 1,000 ML IV SCH ×2 (12:57→15:19)
[2021-10-25] MEDS ORDERED: Potassium Chloride 20 MEQ Tab.ER PO ONE (13:16)
[2021-10-25] MEDS ORDERED: Sodium Chloride 0.9% 1,000 ML IV SCH ×2 (13:45→15:15)
[2021-10-25 14:21] VITALS: BP 126/78; PULSE 67
[2021-10-25] MEDS ORDERED: Ondansetron 4 MG/2 ML SDV IVPUSH ONE (15:08)
[2021-10-25] MEDS ORDERED: Codeine/guaiFENesin 10-100 MG/5 ML Syrup 5 ML Cup PO ONE (15:42)
== END 2021-10-25 16:43 ==
LOC: JP.ED 11:13
DX: F10.10 Alcohol abuse, uncomplicated (principal); E86.0 Dehydration; I10 Essential (primary) hypertension; E11.9 Type 2 diabetes mellitus without complications; Z88.0 Allergy status to penicillin; Z88.1 Allergy status to other antibiotic agents; Z79.899 Other long term (current) drug therapy; Y90.2 Blood alcohol level of 40-59 mg/100 ml
CPT/HCPCS: 36415; 80053; 80305-QW; 80307; 81001; 82150; 83690; 85025; 93005; 96374; 99283; 99285-25; A9270-GY; J2405; J7030; Q0162

== ENCOUNTER 2021-11-07 16:59 | Inpatient (IN) | payer MEDICAID ==
[2021-11-07] MEDS ORDERED: LORazepam 2 MG/ML SDV IVPUSH ONE (17:42)
[2021-11-07] MEDS ORDERED: Ketorolac 30 MG/ML SDV IVPUSH ONE (18:08)
[2021-11-07] MEDS ORDERED: Calcium Gluconate 10% 1 GM/10 ML SDV IVPUSH ONE (18:12)
[2021-11-07] MEDS ORDERED: LORazepam 2 MG/ML SDV IV SCH (20:36)
[2021-11-07] MEDS ORDERED: Magnesium Hydroxide 400 MG/5 ML Susp 30 ML Cup PO PRN (20:36)
[2021-11-07] MEDS ORDERED: Potassium Chloride 20 MEQ Tab.ER PO ONE (20:36)
[2021-11-07] MEDS ORDERED: Ondansetron 4 MG Tab.DIS PO PRN (20:36)
[2021-11-07] MEDS ORDERED: Ondansetron 4 MG/2 ML SDV IV PRN (20:36)
[2021-11-07] MEDS ORDERED: LORazepam 2 MG/ML SDV IVPUSH PRN (20:36)
[2021-11-07] MEDS: Prazosin 1 MG Cap PO SCH (21:30)
[2021-11-07] MEDS: levETIRAcetam 250 MG Tab PO SCH (21:31)
[2021-11-07] MEDS: OXcarbazepine 300 MG Tab PO SCH (21:31)
[2021-11-07] MEDS: Melatonin 3 MG Tab PO SCH (21:31)
[2021-11-07] MEDS: QUEtiapine 100 MG Tab PO SCH (21:56)
[2021-11-07] MEDS: Acetaminophen 325 MG Tab PO PRN (21:56)
[2021-11-08] MEDS: Pantoprazole 40 MG Tab.CR PO SCH (09:25)
[2021-11-08] MEDS: OXcarbazepine 300 MG Tab PO SCH ×2 (09:25→21:08)
[2021-11-08] MEDS: levETIRAcetam 250 MG Tab PO SCH ×2 (09:25→21:10)
[2021-11-08] MEDS: FLUoxetine 20 MG Cap PO SCH (09:25)
[2021-11-08] MEDS: Tamsulosin 0.4 MG Cap.ER PO SCH (09:25)
[2021-11-08] MEDS: Folic Acid 1 MG Tab PO SCH (09:25)
[2021-11-08] MEDS: Thiamine 100 MG Tab PO SCH (09:25)
[2021-11-08] MEDS: Metoprolol Succinate 25 MG Tab.ER PO SCH (09:25)
[2021-11-08] MEDS: Ibuprofen 600 MG Tab PO PRN ×2 (10:35→16:36)
[2021-11-08] MEDS: Nicotine Polacrilex 2 MG Gum CHEW PRN ×3 (10:49→19:30)
[2021-11-08] MEDS: Nicotine 14 MG/24 Hr Patch TRDERM SCH ×2 (10:49→19:15)
[2021-11-08] MEDS: LORazepam 1 MG Tab PO SCH ×2 (12:04→16:39)
[2021-11-08] MEDS: Acetaminophen 325 MG Tab PO PRN ×2 (12:09→16:35)
[2021-11-08] MEDS: QUEtiapine 100 MG Tab PO SCH (21:05)
[2021-11-08] MEDS: Prazosin 1 MG Cap PO SCH (21:07)
[2021-11-08] MEDS: Melatonin 3 MG Tab PO SCH (21:09)
[2021-11-08] MEDS ORDERED: diphenhydrAMINE 25 MG Cap PO ONE (21:43)
[2021-11-09] MEDS: Pantoprazole 40 MG Tab.CR PO SCH (07:36)
[2021-11-09 08:01] VITALS: BP 130/100; PULSE 95
[2021-11-09] MEDS: levETIRAcetam 250 MG Tab PO SCH (08:09)
[2021-11-09] MEDS: Metoprolol Succinate 25 MG Tab.ER PO SCH (08:09)
[2021-11-09] MEDS: Tamsulosin 0.4 MG Cap.ER PO SCH (08:09)
[2021-11-09] MEDS: Folic Acid 1 MG Tab PO SCH (08:09)
[2021-11-09] MEDS: Thiamine 100 MG Tab PO SCH (08:09)
[2021-11-09] MEDS: OXcarbazepine 300 MG Tab PO SCH (08:09)
[2021-11-09] MEDS: FLUoxetine 20 MG Cap PO SCH (08:10)
[2021-11-09] MEDS: Nicotine 14 MG/24 Hr Patch TRDERM SCH (08:10)
[2021-11-09] MEDS: Ibuprofen 600 MG Tab PO PRN (08:54)
== END 2021-11-09 09:16 | DRG 897 ==
LOC: JP.ED 16:59 → OBSVTOIN 19:38 → JP.ICU 19:38
PROVIDERS: ADMIT Internal Medicine; ATTEND Hospitalist
DX: F10.230 Alcohol dependence with withdrawal, uncomplicated (principal); G40.909 Epilepsy, unspecified, not intractable, without status epilepticus; E86.0 Dehydration; E87.6 Hypokalemia; H54.7 Unspecified visual loss; H91.90 Unspecified hearing loss, unspecified ear; K57.90 Diverticulosis of intestine, part unspecified, without perforation or abscess without bleeding; F41.0 Panic disorder [episodic paroxysmal anxiety]; E53.8 Deficiency of other specified B group vitamins; F17.200 Nicotine dependence, unspecified, uncomplicated; F41.1 Generalized anxiety disorder; F32.89 Other specified depressive episodes; Y90.3 Blood alcohol level of 60-79 mg/100 ml; Z87.820 Personal history of traumatic brain injury; Z88.0 Allergy status to penicillin; Z88.1 Allergy status to other antibiotic agents; Z79.890 Hormone replacement therapy; I25.2 Old myocardial infarction; Z87.442 Personal history of urinary calculi; Z90.49 Acquired absence of other specified parts of digestive tract
CPT/HCPCS: 36415; 70450; 80048; 80076; 80177; 80307; 82947; 83735; 85025; 96374; 96375; 99222; 99232; 99238; 99285; 99285-25; A9270-GY; J0610; J1885; J2060

== ENCOUNTER 2021-12-19 04:58 | Inpatient (IN) | payer MEDICAID ==
[2021-12-19] MEDS ORDERED: Ondansetron 4 MG/2 ML SDV IVPUSH ONE (05:19)
[2021-12-19] MEDS ORDERED: Pantoprazole 40 MG Vial IVPUSH ONE (05:19)
[2021-12-19] MEDS ORDERED: levETIRAcetam in NaCl (iso-os) 1,000 MG in Premix Bag 1 BAG IV ONE ×2 (05:20)
[2021-12-19] MEDS ORDERED: Alum Hydrox/Mag Hydrox/Simeth 15 ML, Lidocaine 2% 15 ML PO ONE ×2 (05:23)
[2021-12-19] MEDS ORDERED: Lidocaine 1% 5 ML VIAL INJECT ONE (06:00)
[2021-12-19] MEDS ORDERED: Lactated Ringers 1,000 ML IV SCH (06:00)
[2021-12-19] MEDS: Potassium Chloride 20 MEQ in Premix Bag 1 BAG IV ONE ×2 (06:11→06:13)
[2021-12-19] MEDS ORDERED: Metoclopramide 10 MG/2 ML SDV IVPUSH ONE (06:41)
[2021-12-19] MEDS ORDERED: Magnesium Sulfate/Water 2 GM in Premix Bag 1 BAG IV ONE (07:09)
[2021-12-19] MEDS ORDERED: Mupirocin Oint 22 GM Tube TOP ONE (08:09)
[2021-12-19] MEDS ORDERED: MVI, Adult with Vitamin K 10 ML, Thiamine 200 MG, Zinc/Copper/Manganese/Selenium 1 ML i... IV ONE ×8 (08:34→09:00)
[2021-12-19] MEDS ORDERED: Promethazine 12.5 MG in Sodium Chloride 0.9% 50 ML IV ONE (09:55)
[2021-12-19] MEDS ORDERED: Potassium Chloride 20 MEQ in Premix Bag 1 BAG IV SCH (10:00)
[2021-12-19] MEDS: Dextrose 5%-Lact Ringers w/KCl 1,000 ML IV SCH ×2 (11:10→19:23)
[2021-12-19] MEDS ORDERED: Magnesium Hydroxide 400 MG/5 ML Susp 30 ML Cup PO PRN (12:16)
[2021-12-19] MEDS ORDERED: Ondansetron 4 MG/2 ML SDV IV PRN (12:16)
[2021-12-19] MEDS ORDERED: HYDROmorphone 1 MG/ML Syringe IVPUSH PRN (12:16)
[2021-12-19] MEDS ORDERED: LORazepam 2 MG/ML SDV IVPUSH PRN (12:16)
[2021-12-19] MEDS ORDERED: Ondansetron 4 MG Tab.DIS PO PRN (12:16)
[2021-12-19] MEDS: Potassium Chloride 20 MEQ, Lidocaine 1% 2 ML in Sodium Chloride 0.9% 100 ML IV SCH ×3 (12:32→15:37)
[2021-12-19] MEDS: LORazepam 1 MG Tab PO SCH (12:33)
[2021-12-19] MEDS: Enoxaparin 40 MG/0.4 ML Syringe SUBCUT SCH (13:29)
[2021-12-19] MEDS: Ketorolac 30 MG/ML SDV IVPUSH PRN ×2 (13:29→20:18)
[2021-12-19] MEDS: LORazepam 2 MG/ML SDV IV SCH ×3 (15:35→20:19)
[2021-12-19] MEDS: levETIRAcetam 250 MG Tab PO SCH (20:15)
[2021-12-19] MEDS: Melatonin 3 MG Tab PO SCH (20:16)
[2021-12-19] MEDS: QUEtiapine 100 MG Tab PO SCH (20:16)
[2021-12-19] MEDS: OXcarbazepine 300 MG Tab PO SCH (20:16)
[2021-12-19] MEDS: Prazosin 1 MG Cap PO SCH (20:17)
[2021-12-19 20:57] LABS: CORONAVIRUS COVID-19 NAA NEGATIVE (NEGATIVE)
[2021-12-19] MEDS ORDERED: PRAZOSIN 5 MG PO SCH (21:00)
[2021-12-19] MEDS ORDERED: Non-Formulary Medication 1 Each (Levetiracetam [Keppra] 1,000 MG Tablet) PO SCH (21:00)
[2021-12-19] MEDS: Metoprolol Tartrate 5 MG/5 ML SDV IVPUSH SCH (23:25)
[2021-12-20] MEDS: Metoprolol Tartrate 5 MG/5 ML SDV IVPUSH SCH (05:51)
[2021-12-20] MEDS ORDERED: Potassium Chloride 20 MEQ Tab.ER PO ONE ×2 (08:30→17:00)
[2021-12-20] MEDS ORDERED: Non-Formulary Medication 1 Each (Fluoxetine Hcl [Fluoxetine Hcl] 40 MG Capsule) PO SCH (09:00)
[2021-12-20] MEDS: LORazepam 1 MG Tab PO SCH ×3 (09:10→20:23)
[2021-12-20] MEDS: Folic Acid 1 MG Tab PO SCH (09:10)
[2021-12-20] MEDS: Metoprolol Succinate 25 MG Tab.ER PO SCH (09:10)
[2021-12-20] MEDS: OXcarbazepine 300 MG Tab PO SCH ×2 (09:10→20:43)
[2021-12-20] MEDS: Thiamine 100 MG Tab PO SCH (09:10)
[2021-12-20] MEDS: Pantoprazole 40 MG Vial IV SCH (09:11)
[2021-12-20] MEDS: FLUoxetine 20 MG Cap PO SCH (09:11)
[2021-12-20] MEDS: levETIRAcetam 250 MG Tab PO SCH ×2 (09:11→20:41)
[2021-12-20] MEDS: Tamsulosin 0.4 MG Cap.ER PO SCH (09:11)
[2021-12-20] MEDS: Dextrose 5%-Lact Ringers w/KCl 1,000 ML IV SCH (11:07)
[2021-12-20] MEDS: Ketorolac 30 MG/ML SDV IVPUSH PRN ×2 (13:19→20:23)
[2021-12-20] MEDS: Enoxaparin 40 MG/0.4 ML Syringe SUBCUT SCH (13:24)
[2021-12-20] MEDS: Melatonin 3 MG Tab PO SCH (20:41)
[2021-12-20] MEDS: QUEtiapine 100 MG Tab PO SCH (20:42)
[2021-12-20] MEDS: Prazosin 1 MG Cap PO SCH (20:42)
[2021-12-21] MEDS: Ketorolac 30 MG/ML SDV IVPUSH PRN (02:53)
[2021-12-21] MEDS: LORazepam 1 MG Tab PO SCH ×4 (02:53→19:38)
[2021-12-21] MEDS: Pantoprazole 40 MG Vial IV SCH (08:03)
[2021-12-21] MEDS: Tamsulosin 0.4 MG Cap.ER PO SCH (08:03)
[2021-12-21] MEDS: FLUoxetine 20 MG Cap PO SCH (08:03)
[2021-12-21] MEDS: Thiamine 100 MG Tab PO SCH (08:03)
[2021-12-21] MEDS: Folic Acid 1 MG Tab PO SCH (08:03)
[2021-12-21] MEDS: Metoprolol Succinate 25 MG Tab.ER PO SCH (08:03)
[2021-12-21] MEDS: OXcarbazepine 300 MG Tab PO SCH ×2 (08:03→20:59)
[2021-12-21] MEDS: levETIRAcetam 250 MG Tab PO SCH ×2 (08:04→20:57)
[2021-12-21] MEDS: Enoxaparin 40 MG/0.4 ML Syringe SUBCUT SCH (16:07)
[2021-12-21] MEDS: HYDROmorphone 0.5 MG/0.5 ML Syringe IVPUSH PRN ×2 (19:38→22:12)
[2021-12-21] MEDS: Prazosin 1 MG Cap PO SCH (20:58)
[2021-12-21] MEDS: Melatonin 3 MG Tab PO SCH (20:58)
[2021-12-21] MEDS: QUEtiapine 100 MG Tab PO SCH (20:59)
[2021-12-21] MEDS: Acetaminophen 325 MG Tab PO PRN (21:02)
[2021-12-22] MEDS: LORazepam 1 MG Tab PO SCH (07:26)
[2021-12-22] MEDS: Acetaminophen 325 MG Tab PO PRN ×2 (07:29→16:48)
[2021-12-22] MEDS ORDERED: Potassium Chloride 20 MEQ Tab.ER PO ONE ×2 (08:15→17:00)
[2021-12-22] MEDS: Folic Acid 1 MG Tab PO SCH (10:07)
[2021-12-22] MEDS: Tamsulosin 0.4 MG Cap.ER PO SCH (10:07)
[2021-12-22] MEDS: levETIRAcetam 250 MG Tab PO SCH ×2 (10:07→20:39)
[2021-12-22] MEDS: FLUoxetine 20 MG Cap PO SCH (10:08)
[2021-12-22] MEDS: Metoprolol Succinate 25 MG Tab.ER PO SCH (10:08)
[2021-12-22] MEDS: Pantoprazole 40 MG Vial IV SCH (10:08)
[2021-12-22] MEDS: OXcarbazepine 300 MG Tab PO SCH ×2 (10:10→20:40)
[2021-12-22] MEDS: Thiamine 100 MG Tab PO SCH (10:10)
[2021-12-22] MEDS: Prazosin 1 MG Cap PO SCH (20:37)
[2021-12-22] MEDS: Melatonin 3 MG Tab PO SCH (20:38)
[2021-12-22] MEDS: QUEtiapine 100 MG Tab PO SCH (20:40)
[2021-12-23] MEDS ORDERED: Pantoprazole 40 MG Tab.CR PO SCH (07:30)
[2021-12-23] MEDS: Metoprolol Succinate 25 MG Tab.ER PO SCH (08:15)
[2021-12-23] MEDS: levETIRAcetam 250 MG Tab PO SCH ×2 (08:15→20:17)
[2021-12-23] MEDS: OXcarbazepine 300 MG Tab PO SCH ×2 (08:15→20:16)
[2021-12-23] MEDS: FLUoxetine 20 MG Cap PO SCH (08:15)
[2021-12-23] MEDS: Tamsulosin 0.4 MG Cap.ER PO SCH (08:15)
[2021-12-23] MEDS: Folic Acid 1 MG Tab PO SCH (08:15)
[2021-12-23] MEDS: Thiamine 100 MG Tab PO SCH (08:15)
[2021-12-23] MEDS ORDERED: Calcium Carbonate 500 MG Tab.Chew PO PRN (10:42)
[2021-12-23] MEDS: Acetaminophen 325 MG Tab PO PRN (11:42)
[2021-12-23] MEDS: Topiramate 25 MG Tab PO SCH ×2 (13:07→20:16)
[2021-12-23] MEDS: Pantoprazole 40 MG Tab.CR PO SCH (16:35)
[2021-12-23] MEDS: Prazosin 1 MG Cap PO SCH (20:16)
[2021-12-23] MEDS: Melatonin 3 MG Tab PO SCH (20:17)
[2021-12-23] MEDS: QUEtiapine 100 MG Tab PO SCH (20:17)
[2021-12-24] MEDS: Pantoprazole 40 MG Tab.CR PO SCH ×2 (07:23→15:41)
[2021-12-24] MEDS: Topiramate 25 MG Tab PO SCH ×2 (08:04→22:00)
[2021-12-24] MEDS: Folic Acid 1 MG Tab PO SCH (08:04)
[2021-12-24] MEDS: OXcarbazepine 300 MG Tab PO SCH ×2 (08:04→21:50)
[2021-12-24] MEDS: FLUoxetine 20 MG Cap PO SCH (08:05)
[2021-12-24] MEDS: levETIRAcetam 250 MG Tab PO SCH ×2 (08:05→22:00)
[2021-12-24] MEDS: Thiamine 100 MG Tab PO SCH (08:05)
[2021-12-24] MEDS: Metoprolol Succinate 25 MG Tab.ER PO SCH (08:06)
[2021-12-24] MEDS: Tamsulosin 0.4 MG Cap.ER PO SCH (08:06)
[2021-12-24] MEDS: Acetaminophen 325 MG Tab PO PRN (15:05)
[2021-12-24] MEDS ORDERED: Nicotine Polacrilex 2 MG Gum CHEW PRN (18:00)
[2021-12-24] MEDS ORDERED: Nicotine Polacrilex 2 MG Gum ONE (19:56)
[2021-12-24] MEDS: Melatonin 3 MG Tab PO SCH (21:50)
[2021-12-24] MEDS: Prazosin 1 MG Cap PO SCH (21:51)
[2021-12-24] MEDS: QUEtiapine 100 MG Tab PO SCH (22:00)
[2021-12-25] MEDS: Pantoprazole 40 MG Tab.CR PO SCH ×2 (07:18→17:16)
[2021-12-25] MEDS: Nicotine 21 MG/24 Hr Patch TRDERM SCH (09:00)
[2021-12-25] MEDS: FLUoxetine 20 MG Cap PO SCH (09:02)
[2021-12-25] MEDS: OXcarbazepine 300 MG Tab PO SCH ×2 (09:03→21:11)
[2021-12-25] MEDS: levETIRAcetam 250 MG Tab PO SCH ×2 (09:03→21:10)
[2021-12-25] MEDS: Folic Acid 1 MG Tab PO SCH (09:04)
[2021-12-25] MEDS: Topiramate 25 MG Tab PO SCH ×2 (09:05→21:11)
[2021-12-25] MEDS: Metoprolol Succinate 25 MG Tab.ER PO SCH (09:06)
[2021-12-25] MEDS: Thiamine 100 MG Tab PO SCH (09:06)
[2021-12-25] MEDS: Tamsulosin 0.4 MG Cap.ER PO SCH (09:06)
[2021-12-25] MEDS: Acetaminophen 325 MG Tab PO PRN (15:35)
[2021-12-25] MEDS: Melatonin 3 MG Tab PO SCH (21:10)
[2021-12-25] MEDS: Prazosin 1 MG Cap PO SCH (21:10)
[2021-12-25] MEDS: QUEtiapine 100 MG Tab PO SCH (21:11)
[2021-12-26] MEDS: Pantoprazole 40 MG Tab.CR PO SCH ×2 (07:05→15:53)
[2021-12-26] MEDS: Acetaminophen 325 MG Tab PO PRN ×2 (07:20→23:11)
[2021-12-26] MEDS: Nicotine 21 MG/24 Hr Patch TRDERM SCH (09:04)
[2021-12-26] MEDS: Tamsulosin 0.4 MG Cap.ER PO SCH (09:04)
[2021-12-26] MEDS: levETIRAcetam 250 MG Tab PO SCH ×2 (09:05→20:59)
[2021-12-26] MEDS: FLUoxetine 20 MG Cap PO SCH (09:06)
[2021-12-26] MEDS: Folic Acid 1 MG Tab PO SCH (09:07)
[2021-12-26] MEDS: Topiramate 25 MG Tab PO SCH ×2 (09:07→20:58)
[2021-12-26] MEDS: OXcarbazepine 300 MG Tab PO SCH ×2 (09:08→20:58)
[2021-12-26] MEDS: Thiamine 100 MG Tab PO SCH (09:09)
[2021-12-26] MEDS: Metoprolol Succinate 25 MG Tab.ER PO SCH (09:44)
[2021-12-26] MEDS: Prazosin 1 MG Cap PO SCH (20:58)
[2021-12-26] MEDS: QUEtiapine 100 MG Tab PO SCH (20:58)
[2021-12-26] MEDS: Melatonin 3 MG Tab PO SCH (20:59)
[2021-12-27] MEDS: OXcarbazepine 300 MG Tab PO SCH ×2 (08:01→21:05)
[2021-12-27] MEDS: Folic Acid 1 MG Tab PO SCH (08:01)
[2021-12-27] MEDS: levETIRAcetam 250 MG Tab PO SCH ×2 (08:01→21:07)
[2021-12-27] MEDS: Tamsulosin 0.4 MG Cap.ER PO SCH (08:01)
[2021-12-27] MEDS: Nicotine 21 MG/24 Hr Patch TRDERM SCH (08:01)
[2021-12-27] MEDS: FLUoxetine 20 MG Cap PO SCH (08:01)
[2021-12-27] MEDS: Metoprolol Succinate 25 MG Tab.ER PO SCH (08:02)
[2021-12-27] MEDS: Thiamine 100 MG Tab PO SCH (08:04)
[2021-12-27] MEDS: Pantoprazole 40 MG Tab.CR PO SCH ×2 (08:04→16:41)
[2021-12-27] MEDS: Topiramate 25 MG Tab PO SCH ×2 (08:04→21:05)
[2021-12-27] MEDS: QUEtiapine 100 MG Tab PO SCH (21:04)
[2021-12-27] MEDS: Melatonin 3 MG Tab PO SCH (21:04)
[2021-12-27] MEDS: Prazosin 1 MG Cap PO SCH (21:27)
[2021-12-28] MEDS: levETIRAcetam 250 MG Tab PO SCH (08:34)
[2021-12-28] MEDS: FLUoxetine 20 MG Cap PO SCH (08:35)
[2021-12-28] MEDS: OXcarbazepine 300 MG Tab PO SCH (08:35)
[2021-12-28] MEDS: Thiamine 100 MG Tab PO SCH (08:36)
[2021-12-28] MEDS: Metoprolol Succinate 25 MG Tab.ER PO SCH (08:36)
[2021-12-28] MEDS: Nicotine 21 MG/24 Hr Patch TRDERM SCH (08:38)
[2021-12-28] MEDS: Pantoprazole 40 MG Tab.CR PO SCH (08:38)
[2021-12-28] MEDS: Tamsulosin 0.4 MG Cap.ER PO SCH (08:38)
[2021-12-28] MEDS: Topiramate 25 MG Tab PO SCH (08:38)
[2021-12-28] MEDS: Folic Acid 1 MG Tab PO SCH (08:38)
[2021-12-28 09:32] VITALS: BP 125/61; PULSE 85
== END 2021-12-28 09:30 | DRG 439 ==
LOC: JP.ED 04:58 → JP.ICU 11:04
PROVIDERS: ADMIT Internal Medicine; ATTEND Internal Medicine
DX: K85.20 Alcohol induced acute pancreatitis without necrosis or infection (principal); F31.60 Bipolar disorder, current episode mixed, unspecified; E87.6 Hypokalemia; G40.909 Epilepsy, unspecified, not intractable, without status epilepticus; F43.10 Post-traumatic stress disorder, unspecified; F41.9 Anxiety disorder, unspecified; E11.9 Type 2 diabetes mellitus without complications; Z20.822 Contact with and (suspected) exposure to COVID-19; I10 Essential (primary) hypertension; E53.8 Deficiency of other specified B group vitamins; F17.200 Nicotine dependence, unspecified, uncomplicated; F42.2 Mixed obsessional thoughts and acts; H91.90 Unspecified hearing loss, unspecified ear; F10.229 Alcohol dependence with intoxication, unspecified; Y90.7 Blood alcohol level of 200-239 mg/100 ml; H54.7 Unspecified visual loss; Z88.0 Allergy status to penicillin; Z88.1 Allergy status to other antibiotic agents; I25.2 Old myocardial infarction; Z90.49 Acquired absence of other specified parts of digestive tract
CPT/HCPCS: 0241U; 36415; 71045; 80048; 80053; 80076; 80307; 83690; 83735; 84132; 85025; 85027; 85610; 93005; 96365; 96366; 96367; 96368; 96375; 99285; 99285-25; A9270-GY; C9113; J1170; J1650; J1885; J1953; J2060; J2405; J2550; J2765; J3411; J3475; J3480; J3490; J7120; Q0162

== ENCOUNTER 2022-01-07 23:22 | Emergency (ER) | payer MEDICAID ==
[2022-01-07] MEDS ORDERED: Sodium Chloride 0.9% 10 ML Syringe FLUSH PRN (23:25)
[2022-01-07] MEDS ORDERED: Sodium Chloride 0.9% 1,000 ML IV SCH (23:30)
[2022-01-08 00:43] LABS: CORONAVIRUS COVID-19 NAA NEGATIVE (NEGATIVE)
[2022-01-08] MEDS ORDERED: Pantoprazole 40 MG Tab.CR PO STA (00:48)
[2022-01-08 01:29] VITALS: BP 139/91; PULSE 100
== END 2022-01-08 01:35 | disposition home or self-care (01) ==
LOC: JP.ED 23:22
DX: K29.20 Alcoholic gastritis without bleeding (principal); E87.6 Hypokalemia; E83.51 Hypocalcemia; F10.129 Alcohol abuse with intoxication, unspecified; I25.2 Old myocardial infarction; I10 Essential (primary) hypertension; E11.9 Type 2 diabetes mellitus without complications; Z90.49 Acquired absence of other specified parts of digestive tract; Z88.0 Allergy status to penicillin; Z88.1 Allergy status to other antibiotic agents; Z79.899 Other long term (current) drug therapy; Z20.822 Contact with and (suspected) exposure to COVID-19
CPT/HCPCS: 0241U; 36415; 80053; 80305; 80307; 81001; 83690; 85025; 86140; 96360; 99284; 99285; A9270; J3490; J7030

== ENCOUNTER 2022-03-11 20:00 | Emergency (ER) | payer MEDICAID ==
[2022-03-11] MEDS ORDERED: MVI, Adult with Vitamin K 10 ML, Thiamine 100 MG, Folic Acid 1 MG, Magnesium Sulfate 2 ... IV ONE ×5 (20:10)
[2022-03-11] MEDS ORDERED: Sodium Chloride 0.9% 10 ML Syringe FLUSH PRN (20:10)
[2022-03-11 20:51] LABS: ESTIMATED GFR 92 mL/min (>60)
[2022-03-11] MEDS: Ondansetron 4 MG/2 ML SDV IVPUSH SCH (21:42)
[2022-03-11] MEDS: LORazepam 2 MG/ML SDV IV SCH (22:22)
[2022-03-12] MEDS: LORazepam 2 MG/ML SDV IV SCH (01:02)
[2022-03-12] MEDS: Ondansetron 4 MG/2 ML SDV IVPUSH SCH (03:21)
[2022-03-12] MEDS ORDERED: Ondansetron 4 MG/2 ML SDV IVPUSH PRN (03:22)
[2022-03-12 06:38] LABS: ESTIMATED GFR 108 mL/min (>60)
[2022-03-12] MEDS ORDERED: Acetaminophen 325 MG Tab PO PRN (11:03)
[2022-03-12] MEDS: Nicotine 21 MG/24 Hr Patch TRDERM SCH (12:27)
[2022-03-12] MEDS: Tamsulosin 0.4 MG Cap.ER PO SCH (12:27)
[2022-03-12] MEDS: Topiramate 25 MG Tab PO SCH ×2 (12:28→20:15)
[2022-03-12] MEDS: OXcarbazepine 300 MG Tab PO SCH ×2 (12:29→20:15)
[2022-03-12] MEDS: Metoprolol Succinate 25 MG Tab.ER PO SCH (12:29)
[2022-03-12] MEDS: LORazepam 1 MG Tab PO SCH (17:02)
[2022-03-12] MEDS ORDERED: Prazosin 1 MG Cap ONE (20:04)
[2022-03-12] MEDS: levETIRAcetam 250 MG Tab PO SCH (20:12)
[2022-03-12] MEDS: QUEtiapine 100 MG Tab PO SCH (20:15)
[2022-03-13] MEDS: Nicotine 21 MG/24 Hr Patch TRDERM SCH (08:49)
[2022-03-13] MEDS: FLUoxetine 20 MG Cap PO SCH (08:50)
[2022-03-13] MEDS: Tamsulosin 0.4 MG Cap.ER PO SCH (08:51)
[2022-03-13] MEDS: Topiramate 25 MG Tab PO SCH ×2 (08:51→21:22)
[2022-03-13] MEDS: Thiamine 100 MG Tab PO SCH (08:52)
[2022-03-13] MEDS: OXcarbazepine 300 MG Tab PO SCH ×2 (08:52→21:21)
[2022-03-13] MEDS: Metoprolol Succinate 25 MG Tab.ER PO SCH (08:53)
[2022-03-13] MEDS: Folic Acid 1 MG Tab PO SCH (08:53)
[2022-03-13] MEDS: levETIRAcetam 250 MG Tab PO SCH ×2 (08:53→21:21)
[2022-03-13] MEDS: Pantoprazole 40 MG Tab.CR PO SCH (08:53)
[2022-03-13] MEDS: LORazepam 1 MG Tab PO SCH ×2 (12:26→17:38)
[2022-03-13] MEDS: QUEtiapine 100 MG Tab PO SCH (21:23)
[2022-03-14] MEDS: Topiramate 25 MG Tab PO SCH (08:56)
[2022-03-14] MEDS: Folic Acid 1 MG Tab PO SCH (08:56)
[2022-03-14] MEDS: Pantoprazole 40 MG Tab.CR PO SCH (08:56)
[2022-03-14] MEDS: levETIRAcetam 250 MG Tab PO SCH (08:56)
[2022-03-14] MEDS: Thiamine 100 MG Tab PO SCH (08:56)
[2022-03-14] MEDS: FLUoxetine 20 MG Cap PO SCH (08:56)
[2022-03-14] MEDS: OXcarbazepine 300 MG Tab PO SCH (08:56)
[2022-03-14] MEDS: Tamsulosin 0.4 MG Cap.ER PO SCH (08:56)
[2022-03-14] MEDS: Metoprolol Succinate 25 MG Tab.ER PO SCH (08:56)
[2022-03-14] MEDS: Nicotine 21 MG/24 Hr Patch TRDERM SCH (08:56)
[2022-03-14 13:57] VITALS: BP 113/81; PULSE 69
== END 2022-03-14 16:10 | disposition critical access hospital (66) ==
LOC: JP.ED 20:00
DX: K86.0 Alcohol-induced chronic pancreatitis (principal); E83.42 Hypomagnesemia; E83.51 Hypocalcemia; E83.31 Familial hypophosphatemia; F10.230 Alcohol dependence with withdrawal, uncomplicated; I25.2 Old myocardial infarction; I10 Essential (primary) hypertension; E11.9 Type 2 diabetes mellitus without complications; F17.210 Nicotine dependence, cigarettes, uncomplicated; Z20.822 Contact with and (suspected) exposure to COVID-19; Z88.1 Allergy status to other antibiotic agents; Z88.0 Allergy status to penicillin; Z79.899 Other long term (current) drug therapy; Z90.49 Acquired absence of other specified parts of digestive tract
CPT/HCPCS: 36415; 80053; 80307; 82140; 83690; 83735; 84100; 85025; 85610; 85730; 87635; 96365; 96375; 99284; A9270; J2060; J2405; J3411; J3475; J3490; J7030; U0002

== ENCOUNTER 2022-06-18 12:49 | Emergency (ER) | payer MEDICAID ==
[2022-06-18 12:59] VITALS: BP 164/94; PULSE 58
[2022-06-18] MEDS ORDERED: Sodium Chloride 0.9% 10 ML Syringe FLUSH PRN (13:02)
[2022-06-18] MEDS ORDERED: Sodium Chloride 0.9% 1,000 ML IV ONE (13:02)
[2022-06-18] MEDS ORDERED: Ondansetron 4 MG/2 ML SDV IVPUSH ONE (13:02)
[2022-06-18 13:36] LABS: ACETAMINOPHEN 2.8 ug/mL (10.0-144.9); ESTIMATED GFR 108 mL/min (>60)
[2022-06-18] MEDS ORDERED: LORazepam 2 MG/ML SDV IVPUSH ONE (14:00)
[2022-06-18] MEDS ORDERED: Metoclopramide 10 MG/2 ML SDV IVPUSH ONE (14:00)
[2022-06-18] MEDS ORDERED: MVI, Adult with Vitamin K 10 ML, Thiamine 100 MG, Folic Acid 1 MG, Magnesium Sulfate 3 ... IV SCH ×5 (14:15)
== END 2022-06-18 16:36 | disposition home or self-care (01) ==
LOC: JP.ED 12:49
DX: E83.42 Hypomagnesemia (principal); E83.51 Hypocalcemia; F10.99 Alcohol use, unspecified with unspecified alcohol-induced disorder; I10 Essential (primary) hypertension; I25.2 Old myocardial infarction; E11.9 Type 2 diabetes mellitus without complications; Z88.0 Allergy status to penicillin; Z88.1 Allergy status to other antibiotic agents; Z79.899 Other long term (current) drug therapy; Y90.6 Blood alcohol level of 120-199 mg/100 ml
CPT/HCPCS: 36415; 80053; 80143; 80179; 80305; 80307; 81001; 83735; 84484; 85025; 93005; 96361; 96365; 96366; 96375; 99285; J2060; J2405; J2765; J3411; J3475; J3490; J7030

== ENCOUNTER 2022-06-25 16:01 | Emergency (ER) | payer MEDICAID ==
[2022-06-25] MEDS ORDERED: Lactated Ringers 1,000 ML IV ONE (17:04)
[2022-06-25 17:46] LABS: ESTIMATED GFR 108 mL/min (>60)
[2022-06-25 17:47] LABS: TROPONIN I HIGH SENSITIVITY 9.2 pg/mL (<=60.3)
[2022-06-25] MEDS ORDERED: Ondansetron 4 MG/2 ML SDV IVPUSH ONE (19:44)
[2022-06-25 20:00] VITALS: BP 151/87; PULSE 65
== END 2022-06-25 22:10 | disposition home or self-care (01) ==
LOC: JP.ED 16:01
DX: G40.909 Epilepsy, unspecified, not intractable, without status epilepticus (principal); F10.229 Alcohol dependence with intoxication, unspecified; I25.10 Atherosclerotic heart disease of native coronary artery without angina pectoris; I10 Essential (primary) hypertension; I25.2 Old myocardial infarction; E11.9 Type 2 diabetes mellitus without complications; Z87.820 Personal history of traumatic brain injury; Z72.0 Tobacco use; Z88.0 Allergy status to penicillin; Z88.1 Allergy status to other antibiotic agents; Z79.899 Other long term (current) drug therapy; Z20.822 Contact with and (suspected) exposure to COVID-19
CPT/HCPCS: 36415; 80053; 80143; 80162; 80179; 80307; 83605; 83690; 84484; 87635; 96361; 96374; 99284; J2405; J7120; U0002

== ENCOUNTER 2022-06-30 09:12 | Emergency (ER) | payer MEDICAID ==
[2022-06-30 10:29] LABS: CORONAVIRUS COVID-19 NAA NEGATIVE (NEGATIVE)
[2022-06-30 10:38] VITALS: BP 90/57; PULSE 66
== END 2022-06-30 11:30 | disposition home or self-care (01) ==
LOC: JP.ED 09:12
DX: J21.0 Acute bronchiolitis due to respiratory syncytial virus (principal); R04.2 Hemoptysis; I25.10 Atherosclerotic heart disease of native coronary artery without angina pectoris; I10 Essential (primary) hypertension; E11.9 Type 2 diabetes mellitus without complications; F17.210 Nicotine dependence, cigarettes, uncomplicated; Z88.0 Allergy status to penicillin; Z88.1 Allergy status to other antibiotic agents; Z79.899 Other long term (current) drug therapy; Z90.49 Acquired absence of other specified parts of digestive tract; Z20.822 Contact with and (suspected) exposure to COVID-19
CPT/HCPCS: 0241U; 99283

== ENCOUNTER 2022-08-04 16:23 | Emergency (ER) | payer MEDICAID ==
[2022-08-04] MEDS ORDERED: Sodium Chloride 0.9% 10 ML Syringe FLUSH PRN (16:34)
[2022-08-04] MEDS ORDERED: Sodium Chloride 0.9% 1,000 ML IV ONE (16:34)
[2022-08-04 17:08] LABS: ESTIMATED GFR 108 mL/min (>60)
[2022-08-04] MEDS ORDERED: Potassium Chloride 20 MEQ Tab.ER PO ONE (18:31)
[2022-08-04] MEDS ORDERED: Calcium Carbonate 500 MG Tab.Chew PO ONE (18:32)
[2022-08-04] MEDS ORDERED: Pantoprazole 40 MG Vial IVPUSH ONE (18:36)
[2022-08-04] MEDS ORDERED: Potassium Chloride 20 MEQ in Premix Bag 1 BAG IV SCH (19:00)
[2022-08-05 01:17] VITALS: BP 139/68; PULSE 49
== END 2022-08-05 01:33 ==
LOC: JP.ED 16:23
DX: D50.9 Iron deficiency anemia, unspecified (principal); F10.229 Alcohol dependence with intoxication, unspecified; E87.6 Hypokalemia; E83.51 Hypocalcemia; I25.10 Atherosclerotic heart disease of native coronary artery without angina pectoris; I10 Essential (primary) hypertension; I25.2 Old myocardial infarction; E11.9 Type 2 diabetes mellitus without complications; Z88.0 Allergy status to penicillin; Z88.1 Allergy status to other antibiotic agents; Z79.899 Other long term (current) drug therapy; Z20.822 Contact with and (suspected) exposure to COVID-19
CPT/HCPCS: 36415; 80053; 80305; 80307; 83690; 83735; 85025; 87635; 96361; 96365; 96366; 96375; 99284; A9270; C9113; J3480; J3490; J7030; U0002

== ENCOUNTER 2022-08-06 11:59 | Emergency (ER) | payer MEDICAID ==
[2022-08-06 12:04] VITALS: BP 123/86; PULSE 83
[2022-08-06] MEDS ORDERED: LORazepam 1 MG Tab PO ONE (12:32)
== END 2022-08-06 12:51 | disposition home or self-care (01) ==
LOC: JP.ED 11:59
DX: G40.909 Epilepsy, unspecified, not intractable, without status epilepticus (principal); I25.10 Atherosclerotic heart disease of native coronary artery without angina pectoris; I10 Essential (primary) hypertension; I25.2 Old myocardial infarction; E11.9 Type 2 diabetes mellitus without complications; F17.210 Nicotine dependence, cigarettes, uncomplicated; Z88.0 Allergy status to penicillin; Z88.1 Allergy status to other antibiotic agents; Z79.899 Other long term (current) drug therapy; Z90.49 Acquired absence of other specified parts of digestive tract
CPT/HCPCS: 99283; A9270

== ENCOUNTER 2022-08-11 08:35 | Emergency (ER) | payer MEDICAID ==
[2022-08-11] MEDS ORDERED: Ondansetron 4 MG/2 ML SDV IVPUSH ONE (09:08)
[2022-08-11] MEDS ORDERED: HYDROmorphone 1 MG/ML Syringe IVPUSH ONE (09:08)
[2022-08-11] MEDS ORDERED: Sodium Chloride 0.9% 1,000 ML IV ONE (09:08)
[2022-08-11] MEDS ORDERED: Sodium Chloride 0.9% 10 ML Syringe FLUSH PRN ×2 (09:09→09:22)
[2022-08-11] MEDS ORDERED: Iopamidol 612 MG/ML 100 ML Bottle IV PRN (09:22)
[2022-08-11] MEDS ORDERED: Sodium Chloride 0.9% 50 ML IV ONE (09:22)
[2022-08-11 09:57] LABS: ESTIMATED GFR 108 mL/min (>60)
[2022-08-11] MEDS ORDERED: Magnesium Sulfate/Water 2 GM in Premix Bag 1 BAG IV ONE (10:29)
[2022-08-11] MEDS ORDERED: Lidocaine 1% PF 2 ML SDV IV SCH (10:30)
[2022-08-11] MEDS ORDERED: HYDROmorphone 0.5 MG/0.5 ML Syringe IVPUSH ONE (10:32)
[2022-08-11] MEDS ORDERED: Pantoprazole 40 MG Vial IVPUSH ONE (10:32)
[2022-08-11] MEDS ORDERED: Potassium Chloride 10 MEQ in Premix Bag 1 BAG IV SCH (11:00)
[2022-08-11] MEDS ORDERED: chlordiazePOXIDE 25 MG Cap PO ONE (12:07)
[2022-08-11 12:20] VITALS: BP 115/54; PULSE 63
== END 2022-08-11 12:26 | disposition home or self-care (01) ==
LOC: JP.ED 08:35
DX: K29.20 Alcoholic gastritis without bleeding (principal); K86.0 Alcohol-induced chronic pancreatitis; K86.81 Exocrine pancreatic insufficiency; F10.20 Alcohol dependence, uncomplicated; D53.9 Nutritional anemia, unspecified; E87.6 Hypokalemia; I25.10 Atherosclerotic heart disease of native coronary artery without angina pectoris; I10 Essential (primary) hypertension; I25.2 Old myocardial infarction; E11.9 Type 2 diabetes mellitus without complications; F17.210 Nicotine dependence, cigarettes, uncomplicated; Z95.1 Presence of aortocoronary bypass graft; Z88.0 Allergy status to penicillin; Z88.1 Allergy status to other antibiotic agents; Z79.899 Other long term (current) drug therapy
CPT/HCPCS: 36415; 74177; 80053; 83690; 83735; 85025; 96361; 96365; 96368; 96375; 96376; 99284; A9270; C9113; J1170; J2405; J3475; J3480; J3490; J7030; Q9967

== ENCOUNTER 2022-08-15 01:28 | Emergency (ER) | payer MEDICAID ==
[2022-08-15] MEDS ORDERED: Naloxone 0.4 MG/ML SDV IVPUSH ONE (01:42)
[2022-08-15 02:08] LABS: ESTIMATED GFR 113 mL/min (>60)
[2022-08-15] MEDS ORDERED: Sodium Chloride 0.9% 1,000 ML IV SCH ×3 (02:15→05:45)
[2022-08-15] MEDS ORDERED: Ondansetron 4 MG/2 ML SDV IVPUSH ONE (03:15)
[2022-08-15] MEDS ORDERED: Potassium Chloride 20 MEQ in Premix Bag 1 BAG IV ONE (03:16)
[2022-08-15] MEDS ORDERED: Acetaminophen 325 MG Tab PO ONE (05:42)
[2022-08-15 09:08] VITALS: BP 149/90; PULSE 59
== END 2022-08-15 10:05 ==
LOC: JP.ED 01:28
DX: F10.229 Alcohol dependence with intoxication, unspecified (principal); Y90.8 Blood alcohol level of 240 mg/100 ml or more; I25.10 Atherosclerotic heart disease of native coronary artery without angina pectoris; I25.2 Old myocardial infarction; E11.9 Type 2 diabetes mellitus without complications; I10 Essential (primary) hypertension; F41.9 Anxiety disorder, unspecified; F32.A Depression, unspecified; Z79.899 Other long term (current) drug therapy; Z88.1 Allergy status to other antibiotic agents; Z88.0 Allergy status to penicillin
CPT/HCPCS: 36415; 51702; 70450; 80053; 80305; 80307; 81001; 82947; 83735; 84484; 85025; 93005; 96361; 96365; 96366; 96375; 99285; A9270; J2310; J2405; J3480; J7030

== ENCOUNTER 2022-08-22 07:24 | Day surgery (SDC) | payer MEDICAID ==
[~2022-08-22 07:24] MED LIST: Propofol 200 MG/20 ML SDV ONE
[2022-08-22] MEDS ORDERED: Midazolam 1 MG/ML 2 ML SDV ONE (07:25)
[2022-08-22] MEDS ORDERED: fentaNYL 50 MCG/ML SDV ONE (07:25)
[2022-08-22] MEDS ORDERED: MVI, Adult with Vitamin K 10 ML, Zinc/Copper/Manganese/Selenium 1 ML, Thiamine 200 MG i... IV ONE ×4 (08:30)
[2022-08-22] MEDS ORDERED: Glycopyrrolate 0.2 MG/ML 2 ML SDV IVPUSH ONE (08:30)
[2022-08-22] MEDS ORDERED: Dextrose 5%-Lactated Ringers 1,000 ML IV SCH (10:00)
[2022-08-22 10:04] VITALS: BP 102/84; PULSE 62
== END 2022-08-22 10:24 | disposition home or self-care (01) ==
LOC: JP.SDS 07:24
PROVIDERS: ATTEND Surgery
DX: K92.0 Hematemesis (principal); I10 Essential (primary) hypertension; I25.10 Atherosclerotic heart disease of native coronary artery without angina pectoris; F32.A Depression, unspecified; E11.9 Type 2 diabetes mellitus without complications; Z87.19 Personal history of other diseases of the digestive system; Z88.0 Allergy status to penicillin; Z88.1 Allergy status to other antibiotic agents; Z79.899 Other long term (current) drug therapy
CPT/HCPCS: 43239; 87081; J2250; J2704; J3010; J3411; J7120

== ENCOUNTER 2022-08-31 21:24 | Emergency (ER) | payer MEDICAID ==
[2022-08-31] MEDS ORDERED: Sodium Chloride 0.9% 10 ML Syringe FLUSH PRN (21:29)
[2022-08-31 21:30] VITALS: BP 110/70; PULSE 107
[2022-08-31] MEDS ORDERED: Alum Hydrox/Mag Hydrox/Simeth 15 ML, Lidocaine 2% 15 ML PO ONE ×2 (21:47)
[2022-08-31] MEDS ORDERED: Ondansetron 4 MG/2 ML SDV IVPUSH ONE (21:56)
[2022-08-31] MEDS ORDERED: Sodium Chloride 0.9% 1,000 ML IV SCH (22:00)
[2022-08-31] MEDS ORDERED: Pantoprazole 80 MG in Sodium Chloride 0.9% 100 ML IV SCH (22:00)
[2022-08-31 22:08] LABS: ESTIMATED GFR 105 mL/min (>60)
[2022-08-31] MEDS ORDERED: LORazepam 1 MG Tab PO ONE (22:58)
== END 2022-09-01 06:41 | disposition home or self-care (01) ==
LOC: JP.ED 21:24
DX: K31.89 Other diseases of stomach and duodenum (principal); F10.129 Alcohol abuse with intoxication, unspecified; I25.10 Atherosclerotic heart disease of native coronary artery without angina pectoris; I10 Essential (primary) hypertension; I25.2 Old myocardial infarction; E11.9 Type 2 diabetes mellitus without complications; F17.210 Nicotine dependence, cigarettes, uncomplicated; Z86.16 Personal history of COVID-19; Z88.0 Allergy status to penicillin; Z88.1 Allergy status to other antibiotic agents; Z79.899 Other long term (current) drug therapy; Y90.8 Blood alcohol level of 240 mg/100 ml or more
CPT/HCPCS: 36415; 80053; 80307; 81001; 82150; 83690; 85025; 96361; 96365; 96375; 99284; 99284-25; A9270-GY; C9113; J2405; J3490; J7030

== ENCOUNTER 2022-09-01 16:01 | Emergency (ER) | payer MEDICAID ==
[2022-09-01 16:17] VITALS: BP 146/96; PULSE 104
[2022-09-01] MEDS ORDERED: Sodium Chloride 0.9% 10 ML Syringe FLUSH PRN (16:48)
[2022-09-01] MEDS ORDERED: LORazepam 2 MG/ML SDV IVPUSH ONE (16:49)
[2022-09-01] MEDS ORDERED: Ondansetron 4 MG/2 ML SDV IVPUSH ONE (16:51)
[2022-09-01] MEDS ORDERED: Sodium Chloride 0.9% 500 ML IV ONE (16:54)
[2022-09-01 17:36] LABS: ESTIMATED GFR 108 mL/min (>60)
[2022-09-01] MEDS ORDERED: Magnesium Oxide 400 MG Tab PO ONE (17:43)
== END 2022-09-01 19:17 ==
LOC: JP.ED 16:01
DX: D64.9 Anemia, unspecified (principal); F10.230 Alcohol dependence with withdrawal, uncomplicated; I25.10 Atherosclerotic heart disease of native coronary artery without angina pectoris; I10 Essential (primary) hypertension; I25.2 Old myocardial infarction; E11.9 Type 2 diabetes mellitus without complications; Z88.0 Allergy status to penicillin; Z88.1 Allergy status to other antibiotic agents; Z79.899 Other long term (current) drug therapy; Z86.16 Personal history of COVID-19; Z20.822 Contact with and (suspected) exposure to COVID-19
CPT/HCPCS: 36415; 80053; 80305-QW; 80307; 83690; 83735; 85025; 96361; 96374; 96375; 99283; 99285-25; A9270-GY; J2060; J2405; J3490; J7040; U0002

== ENCOUNTER 2022-09-21 10:08 | Emergency (ER) | payer MEDICAID ==
[2022-09-21 10:12] VITALS: BP 132/91; PULSE 74
[2022-09-21] MEDS ORDERED: Aluminum Hydroxide/Magnesium Hydroxide/Simethicone Susp 30 ML Cup PO ONE (11:34)
== END 2022-09-21 11:45 | disposition home or self-care (01) ==
LOC: JP.ED 10:08
DX: F10.129 Alcohol abuse with intoxication, unspecified (principal); I25.10 Atherosclerotic heart disease of native coronary artery without angina pectoris; I10 Essential (primary) hypertension; I25.2 Old myocardial infarction; E11.9 Type 2 diabetes mellitus without complications; Z88.0 Allergy status to penicillin; Z88.1 Allergy status to other antibiotic agents; Z79.899 Other long term (current) drug therapy; Z86.16 Personal history of COVID-19; Z90.49 Acquired absence of other specified parts of digestive tract; Z72.0 Tobacco use
CPT/HCPCS: 36415; 80048; 80307; 85025; 99285; A9270-GY

== ENCOUNTER 2022-09-23 22:26 | Emergency (ER) | payer MEDICAID ==
[2022-09-23 22:38] VITALS: BP 96/65; PULSE 74
[2022-09-23 22:57] LABS: ESTIMATED GFR 112 mL/min (>60)
[2022-09-23] MEDS ORDERED: Potassium Chloride 20 MEQ Tab.ER PO ONE (23:04)
== END 2022-09-24 00:25 | disposition other institution (70) ==
LOC: JP.ED 22:26
DX: E86.0 Dehydration (principal); E87.6 Hypokalemia; R55 Syncope and collapse; I25.10 Atherosclerotic heart disease of native coronary artery without angina pectoris; I10 Essential (primary) hypertension; I25.2 Old myocardial infarction; E11.9 Type 2 diabetes mellitus without complications; Z88.0 Allergy status to penicillin; Z88.1 Allergy status to other antibiotic agents; Z79.899 Other long term (current) drug therapy
CPT/HCPCS: 36415; 80053; 80307; 83605; 85025; 99283; 99285; A9270

== ENCOUNTER 2022-10-23 13:37 | Inpatient (IN) | payer MEDICAID ==
[2022-10-23] MEDS ORDERED: Sodium Chloride 0.9% 10 ML Syringe FLUSH PRN (13:44)
[2022-10-23] MEDS ORDERED: Ondansetron 4 MG/2 ML SDV IVPUSH ONE (13:44)
[2022-10-23] MEDS ORDERED: LORazepam 2 MG/ML SDV IVPUSH ONE (13:45)
[2022-10-23] MEDS ORDERED: Pantoprazole 40 MG Vial IVPUSH ONE (13:49)
[2022-10-23] MEDS ORDERED: Pantoprazole 80 MG in Sodium Chloride 0.9% 100 ML IV ONE (13:51)
[2022-10-23] MEDS ORDERED: Sodium Chloride 0.9% 500 ML IV ONE (14:07)
[2022-10-23 14:36] LABS: ESTIMATED GFR 82 mL/min (>60)
[2022-10-23 14:50] LABS: CORONAVIRUS COVID-19 NAA NEGATIVE (NEGATIVE)
[2022-10-23] MEDS ORDERED: Potassium Chloride 10 MEQ in Premix Bag 1 BAG IV SCH (15:00)
[2022-10-23] MEDS ORDERED: Prochlorperazine 10 MG/2 ML SDV IVPUSH ONE (15:35)
[2022-10-23] MEDS: Lactated Ringers 1,000 ML IV SCH ×2 (15:55→21:52)
[2022-10-23] MEDS ORDERED: HYDROmorphone 0.5 MG/0.5 ML Syringe IVPUSH ONE (16:33)
[2022-10-23] MEDS ORDERED: HYDROmorphone 1 MG/ML Syringe IVPUSH PRN (16:57)
[2022-10-23] MEDS ORDERED: Ondansetron 4 MG Tab.DIS PO PRN (16:57)
[2022-10-23] MEDS ORDERED: LORazepam 2 MG/ML SDV IVPUSH PRN (16:57)
[2022-10-23] MEDS ORDERED: Ondansetron 4 MG/2 ML SDV IV PRN (16:57)
[2022-10-23] MEDS ORDERED: Albuterol 0.083% 2.5 MG/3 ML Neb Soln NEB PRN (16:57)
[2022-10-23] MEDS: Potassium Chloride 10 MEQ in Premix Bag 1 BAG IV SCH ×2 (17:15→18:20)
[2022-10-23] MEDS: Nicotine 14 MG/24 Hr Patch TRDERM PRN (17:15)
[2022-10-23] MEDS: LORazepam 1 MG Tab PO SCH ×2 (18:59→20:03)
[2022-10-23] MEDS ORDERED: FLUoxetine 20 MG Cap ONE (20:06)
[2022-10-23] MEDS ORDERED: Prazosin 1 MG Cap ONE (20:16)
[2022-10-23] MEDS: levETIRAcetam 250 MG Tab PO SCH (21:00)
[2022-10-23] MEDS: Melatonin 3 MG Tab PO SCH (21:01)
[2022-10-23] MEDS: Metoprolol Tartrate 25 MG Tab PO SCH (21:01)
[2022-10-23] MEDS: Gabapentin 100 MG Cap PO SCH (21:02)
[2022-10-23] MEDS: FLUoxetine 20 MG Cap PO SCH (21:02)
[2022-10-23] MEDS: QUEtiapine 100 MG Tab PO SCH (21:02)
[2022-10-23] MEDS: OXcarbazepine 300 MG Tab PO SCH (21:03)
[2022-10-24] MEDS: Pantoprazole 40 MG Vial IV SCH ×2 (02:35→14:04)
[2022-10-24] MEDS: Lactated Ringers 1,000 ML IV SCH (04:27)
[2022-10-24 05:30] LABS: ESTIMATED GFR 112 mL/min (>60)
[2022-10-24] MEDS: Nicotine 14 MG/24 Hr Patch TRDERM PRN (08:35)
[2022-10-24] MEDS: OXcarbazepine 300 MG Tab PO SCH ×2 (08:37→20:53)
[2022-10-24] MEDS: levETIRAcetam 250 MG Tab PO SCH ×2 (08:37→20:45)
[2022-10-24] MEDS: Gabapentin 100 MG Cap PO SCH ×3 (08:37→20:51)
[2022-10-24] MEDS: Tamsulosin 0.4 MG Cap.ER PO SCH (08:37)
[2022-10-24] MEDS: Metoprolol Tartrate 25 MG Tab PO SCH ×2 (08:38→20:46)
[2022-10-24] MEDS: Thiamine 100 MG Tab PO SCH (08:39)
[2022-10-24] MEDS: Folic Acid 1 MG Tab PO SCH (08:39)
[2022-10-24] MEDS: Acetaminophen 325 MG Tab PO PRN ×3 (08:46→21:03)
[2022-10-24] MEDS: LORazepam 1 MG Tab PO SCH ×5 (08:47→23:02)
[2022-10-24] MEDS ORDERED: Potassium Chloride 20 MEQ Tab.ER PO ONE ×2 (09:00→17:00)
[2022-10-24] MEDS ORDERED: Lactated Ringers 1,000 ML IV SCH (10:45)
[2022-10-24] MEDS ORDERED: Nicotine 21 MG/24 Hr Patch TRDERM SCH (17:00)
[2022-10-24] MEDS: Melatonin 3 MG Tab PO SCH (20:47)
[2022-10-24] MEDS: FLUoxetine 20 MG Cap PO SCH (20:50)
[2022-10-24] MEDS: QUEtiapine 100 MG Tab PO SCH (20:51)
[2022-10-25] MEDS: Pantoprazole 40 MG Vial IV SCH (01:55)
[2022-10-25] MEDS: Acetaminophen 325 MG Tab PO PRN (03:07)
[2022-10-25] MEDS: LORazepam 1 MG Tab PO SCH (03:07)
[2022-10-25] MEDS: LORazepam 2 MG/ML SDV IV SCH ×3 (07:51→10:13)
[2022-10-25] MEDS ORDERED: fentaNYL 50 MCG/ML SDV ONE (08:38)
[2022-10-25] MEDS ORDERED: Propofol 200 MG/20 ML SDV ONE (08:38)
[2022-10-25 12:59] VITALS: PULSE 76
[2022-10-25] MEDS: Metoprolol Tartrate 25 MG Tab PO SCH (13:00)
[2022-10-25] MEDS: Thiamine 100 MG Tab PO SCH (13:01)
[2022-10-25] MEDS: Folic Acid 1 MG Tab PO SCH (13:02)
[2022-10-25] MEDS: Gabapentin 100 MG Cap PO SCH ×2 (13:02→13:07)
[2022-10-25] MEDS: Tamsulosin 0.4 MG Cap.ER PO SCH (13:02)
[2022-10-25] MEDS: levETIRAcetam 250 MG Tab PO SCH (13:04)
[2022-10-25] MEDS: OXcarbazepine 300 MG Tab PO SCH (13:08)
[2022-10-25 13:16] VITALS: BP 146/95
== END 2022-10-25 13:43 | disposition home or self-care (01) | DRG 897 ==
LOC: JP.ED 13:37 → JP.ICU 16:34
PROVIDERS: ADMIT Internal Medicine; ATTEND Internal Medicine
PROC: 8E0ZXY6 Isolation (ICD-10-PCS; principal; 2022-10-23)
DX: F10.231 Alcohol dependence with withdrawal delirium (principal); K92.0 Hematemesis; K92.1 Melena; G40.89 Other seizures; E87.6 Hypokalemia; K31.89 Other diseases of stomach and duodenum; H91.90 Unspecified hearing loss, unspecified ear; I25.10 Atherosclerotic heart disease of native coronary artery without angina pectoris; I10 Essential (primary) hypertension; F41.9 Anxiety disorder, unspecified; Z20.822 Contact with and (suspected) exposure to COVID-19; F41.0 Panic disorder [episodic paroxysmal anxiety]; D50.9 Iron deficiency anemia, unspecified; F10.229 Alcohol dependence with intoxication, unspecified; Z98.84 Bariatric surgery status; F17.210 Nicotine dependence, cigarettes, uncomplicated; F32.9 Major depressive disorder, single episode, unspecified; E11.9 Type 2 diabetes mellitus without complications; E53.8 Deficiency of other specified B group vitamins; Z90.49 Acquired absence of other specified parts of digestive tract; Z98.890 Other specified postprocedural states; I25.2 Old myocardial infarction; Z79.899 Other long term (current) drug therapy; Z87.442 Personal history of urinary calculi
CPT/HCPCS: 0241U; 36415; 70450; 70486; 71045; 71045-26; 80048; 80053; 80177; 80305-QW; 80307; 82803; 83605; 83690; 83735; 84132; 85018; 85025; 85027; 85610; 85730; 86850; 86900; 86901; 93005; 93010; 99223; 99233; 99238; 99285; A9270-GY; C9113; J0780; J1170; J2060; J2405; J2704; J3010; J3480; J3490; J7040; J7120; Q0162

== ENCOUNTER 2022-10-27 01:03 | Emergency (ER) | payer MEDICAID ==
[2022-10-27] MEDS ORDERED: Sodium Chloride 0.9% 1,000 ML IV ONE (01:17)
[2022-10-27 01:25] VITALS: BP 88/47; PULSE 73
[2022-10-27 01:47] LABS: ESTIMATED GFR 108 mL/min (>60)
[2022-10-27] MEDS ORDERED: Potassium Chloride 20 MEQ Tab.ER PO STA (01:51)
[2022-10-27 03:00] LABS: CORONAVIRUS COVID-19 NAA NEGATIVE (NEGATIVE)
== END 2022-10-27 04:05 ==
LOC: JP.ED 01:03
DX: F10.120 Alcohol abuse with intoxication, uncomplicated (principal); E86.0 Dehydration; I25.10 Atherosclerotic heart disease of native coronary artery without angina pectoris; I10 Essential (primary) hypertension; E11.9 Type 2 diabetes mellitus without complications; I25.2 Old myocardial infarction; Z88.0 Allergy status to penicillin; Z88.1 Allergy status to other antibiotic agents; Z79.899 Other long term (current) drug therapy; Z86.16 Personal history of COVID-19; Z20.822 Contact with and (suspected) exposure to COVID-19; Y90.8 Blood alcohol level of 240 mg/100 ml or more
CPT/HCPCS: 0241U; 36415; 80053; 80305; 80307; 83605; 83735; 85025; 96360; 99285; A9270; J7030

== ENCOUNTER 2022-11-13 18:08 | Emergency (ER) | payer MEDICAID ==
[2022-11-13] MEDS ORDERED: Sodium Chloride 0.9% 10 ML Syringe FLUSH PRN (18:11)
[2022-11-13] MEDS ORDERED: MVI, Adult with Vitamin K 10 ML, Thiamine 100 MG, Folic Acid 1 MG, Magnesium Sulfate 3 ... IV SCH ×5 (18:15)
[2022-11-13 18:48] LABS: ESTIMATED GFR 108 mL/min (>60)
[2022-11-13] MEDS ORDERED: Calcium Carbonate 500 MG Tab.Chew PO ONE (20:12)
[2022-11-13] MEDS ORDERED: levETIRAcetam 250 MG Tab PO ONE (20:59)
[2022-11-13] MEDS ORDERED: QUEtiapine 100 MG Tab PO ONE (21:00)
[2022-11-13] MEDS ORDERED: OXcarbazepine 300 MG Tab PO ONE (21:01)
[2022-11-13] MEDS ORDERED: Metoprolol Tartrate 25 MG Tab PO ONE (21:01)
[2022-11-13] MEDS ORDERED: Gabapentin 100 MG Cap PO ONE (21:01)
[2022-11-13] MEDS ORDERED: FLUoxetine 10 MG Cap PO ONE (21:01)
[2022-11-13] MEDS ORDERED: Acetaminophen 325 MG Tab, 50 Tab Bulk Bottle PO ONE (21:45)
[2022-11-13] MEDS ORDERED: Sodium Chloride 0.9% 500 ML IV ONE (23:26)
[2022-11-14] MEDS ORDERED: Sodium Chloride 0.9% 500 ML IV ONE (00:07)
[2022-11-14 00:57] VITALS: BP 91/51; PULSE 60
[2022-11-14] MEDS ORDERED: Cyproheptadine 4 MG Tab PO ONE (21:02)
== END 2022-11-14 01:24 ==
LOC: JP.ED 18:08
DX: F10.129 Alcohol abuse with intoxication, unspecified (principal); E83.51 Hypocalcemia; D64.9 Anemia, unspecified; I25.10 Atherosclerotic heart disease of native coronary artery without angina pectoris; I10 Essential (primary) hypertension; I25.2 Old myocardial infarction; E11.9 Type 2 diabetes mellitus without complications; Z88.0 Allergy status to penicillin; Z88.1 Allergy status to other antibiotic agents; Z79.899 Other long term (current) drug therapy; Z86.16 Personal history of COVID-19; Z90.49 Acquired absence of other specified parts of digestive tract; Z20.822 Contact with and (suspected) exposure to COVID-19
CPT/HCPCS: 36415; 80053; 80305; 80307; 83735; 85025; 87635; 96361; 96365; 96366; 99285; A9270; J3411; J3475; J3490; J7030; J7040; U0002

== ENCOUNTER 2022-11-21 09:35 | Emergency (ER) | payer MEDICAID ==
[2022-11-21] MEDS ORDERED: Haloperidol Lactate 5 MG/ML SDV IVPUSH ONE (09:50)
[2022-11-21] MEDS ORDERED: Sodium Chloride 0.9% 10 ML Syringe FLUSH PRN (09:50)
[2022-11-21 10:04] VITALS: PULSE 69
[2022-11-21 10:31] LABS: ESTIMATED GFR 108 mL/min (>60)
[2022-11-21 12:35] VITALS: BP 149/101
== END 2022-11-21 12:45 | disposition other institution (70) ==
LOC: JP.ED 09:35
DX: S16.1XXA Strain of muscle, fascia and tendon at neck level, initial encounter (principal); S00.03XA Contusion of scalp, initial encounter; S00.12XA Contusion of left eyelid and periocular area, initial encounter; F10.20 Alcohol dependence, uncomplicated; R56.9 Unspecified convulsions; I25.10 Atherosclerotic heart disease of native coronary artery without angina pectoris; I10 Essential (primary) hypertension; I25.2 Old myocardial infarction; E11.9 Type 2 diabetes mellitus without complications; Z86.16 Personal history of COVID-19; Z88.0 Allergy status to penicillin; Z88.1 Allergy status to other antibiotic agents; Z79.899 Other long term (current) drug therapy; Z20.822 Contact with and (suspected) exposure to COVID-19; W18.09XA Striking against other object with subsequent fall, initial encounter
CPT/HCPCS: 36415; 70450; 72125; 76377; 80053; 80305; 80307; 83605; 83690; 85025; 87635; 96374; 99284; J1630; J3490; U0002

== ENCOUNTER 2022-11-23 15:27 | Emergency (ER) | payer MEDICAID ==
[2022-11-23] MEDS ORDERED: Sodium Chloride 0.9% 10 ML Syringe FLUSH PRN (15:31)
[2022-11-23] MEDS ORDERED: LORazepam 2 MG/ML SDV IVPUSH PRN (15:34)
[2022-11-23] MEDS ORDERED: MVI, Adult with Vitamin K 10 ML, Thiamine 100 MG, Folic Acid 1 MG, Magnesium Sulfate 3 ... IV SCH ×5 (15:45)
[2022-11-23 16:00] VITALS: PULSE 109
[2022-11-23 16:05] LABS: ESTIMATED GFR 112 mL/min (>60)
[2022-11-23] MEDS ORDERED: Calcium Carbonate 500 MG Tab.Chew PO ONE (16:19)
[2022-11-23 16:44] LABS: CORONAVIRUS COVID-19 NAA NEGATIVE (NEGATIVE)
[2022-11-23] MEDS ORDERED: Acetaminophen 325 MG Tab PO ONE (16:46)
[2022-11-23 16:53] VITALS: BP 165/108
[2022-11-23] MEDS ORDERED: MVI, Adult with Vitamin K 10 ML, Thiamine 100 MG, Folic Acid 1 MG, Magnesium Sulfate 3 ... IV ONE ×5 (17:00)
== END 2022-11-23 18:15 ==
LOC: JP.ED 15:27
DX: S00.432A Contusion of left ear, initial encounter (principal); R41.0 Disorientation, unspecified; F10.229 Alcohol dependence with intoxication, unspecified; R56.9 Unspecified convulsions; D50.9 Iron deficiency anemia, unspecified; E83.51 Hypocalcemia; I25.10 Atherosclerotic heart disease of native coronary artery without angina pectoris; I10 Essential (primary) hypertension; I25.2 Old myocardial infarction; E11.9 Type 2 diabetes mellitus without complications; Z88.0 Allergy status to penicillin; Z88.1 Allergy status to other antibiotic agents; Z86.16 Personal history of COVID-19; Z79.899 Other long term (current) drug therapy; Z20.822 Contact with and (suspected) exposure to COVID-19; Y90.8 Blood alcohol level of 240 mg/100 ml or more; W18.09XA Striking against other object with subsequent fall, initial encounter; Y92.002 Bathroom of unspecified non-institutional (private) residence as the place of occurrence of the external cause
CPT/HCPCS: 0241U; 36415; 80053; 80305; 80307; 83735; 84100; 85025; 85610; 85730; 96365; 96366; 99285; A9270; J3411; J3475; J7030; J3490